=== PATIENT | male | born 1960 | race Two or more races ===

== ENCOUNTER 2016-06-27 12:06 | Inpatient (IN) | payer OTHER ==
[2016-06-27 12:18] VITALS: BMI 28.7
--- NOTE | 2016-06-27 12:42 | PDOC ---
History of Present Illness - General Chief Complaint: Weakness Stated Complaint: FLU LIKE SYMPTOMS Time Seen by Provider: 06/27/16 12:34 History Source: Patient Exam Limitations: No Limitations - History of Present Illness Initial Comments: 06/27/16 12:41 CHIEF COMPLAINT: "Flu" HISTORY OF PRESENT ILLNESS: This is a 55 year old male with a history of ESRD on HD Tue/Tue/Tue, anemia, IDDM, and bilateral plantar wounds for which he is followed at the [facility] who presents complaining of subjective fevers, chills/rigors, bodyaches, and malaise since Tuesday. He has some generalized headache, but denies neck stiffness, visual changes, vomiting, or any other associated symptoms. He has some dry cough. He denies shortness of breath, chest pain, abdominal pain, n/v/d, or any other symptoms. He states that he feels "exactly the same" as when he was admitted in 2016 with influenza. His girlfriend at bedside states that she was able to express pus from his left foot wound yesterday. Vital signs on arrival are notable for rectal temp of 100.9. Industrial Maintenance Technician is Dr. Kaylyn Marks Wound Care is done by Dr. Sadie Araiza Patient does not currently have a PCP (previously followed with Oliva Young at [facility]) REVIEW OF SYSTEMS: GENERAL/CONSTITUTIONAL: Subjective fevers, chills, rigors, malaise, bodyaches. HEAD, EYES, EARS, NOSE AND THROAT: No change in vision. No ear pain or discharge. No sore throat. CARDIOVASCULAR: No chest pain or palpitations. RESPIRATORY: Dry cough. No wheezing or shortness of breath. GASTROINTESTINAL: No nausea, vomiting, diarrhea or constipation. GENITOURINARY: Produces urine. No dysuria or hematuria. MUSCULOSKELETAL: Myalgias. No neck or back pain. SKIN: No rash or easy bruising. Bilateral foot wounds. NEUROLOGIC: Gradual onset, intermittent, generalized headache. No vertigo, loss of consciousness, or loss of sensation. PSYCHIATRIC: No depression or anxiety. ENDOCRINE: No increased thirst. No abnormal weight change. HEMATOLOGIC/LYMPHATIC: History of anemia. No easy bleeding, or history of blood clots. ALLERGIC/IMMUNOLOGIC: No hives or skin allergy. No latex allergy. PHYSICAL EXAM: GENERAL: The patient is awake, alert, and fully oriented, in no acute distress. ENT: Pupils equal, round and reactive to light, extraocular movements intact, sclera anicteric, conjunctiva clear. Neck supple. LUNGS: Clear to auscultation bilaterally. Normal excursion. No respiratory distress or use of accessory muscles. CV: RRR, S1/S2, no MRG. Cap refill < 2 sec. ABDOMEN: Soft, non-distended, non-tender. EXTREMITIES: LUE AV graft. NEUROLOGICAL: Normal speech, normal gait. CN II-XII grossly intact. PSYCH: Normal mood, normal affect. SKIN: Small, shallow plantar ulcerations bilaterally without surrounding erythema, no pus expressed. Past History - Past Medical History Allergies/Adverse Reactions: Allergies Allergy/AdvReac Type Severity Reaction Status Date / Time No Known Drug Allergies Allergy Verified 06/27/16 12:13 Home Medications: Ambulatory Orders Calcium Acetate [Phoslo -] 1 tab PO TID 06/30/15 Mupirocin Ointment [Bactroban 2% Ointment -] 1 applic TP BID #1 applic 12/08/15 Torsemide 20 mg PO BID 12/08/15 Minoxidil 10 mg PO DAILY 02/23/16 Insulin Lispro [Humalog] 100 unit SQ HS 06/27/16 Anemia: No Asthma: No Cancer: No Cardiac Disorders: No CVA: No COPD: No CHF: No Dementia: Yes Diabetes: Yes (IDDM, T, T,S) Dialysis: Yes () GI Disorders: No Disorders: No HTN: Yes Hypercholesterolemia: No Liver Disease: No Seizures: No Thyroid Disease: No - Surgical History Abdominal Surgery: Yes (childhood) Appendectomy: No Cardiac Surgery: No Cholecystectomy: No Lung Surgery: No Neurologic Surgery: No Orthopedic Surgery: (fingers) - Immunization History Td Vaccination: No Immunization Up to Date: Yes - Psycho/Social/Smoking Cessation Hx Anxiety: No Suicidal Ideation: No Smoking Status: No Smoking History: Never smoked Have you smoked in the past 12 months: No Number of Cigarettes Smoked Daily: 0 Cigars Per Day: 0 Information on smoking cessation initiated: No Hx Alcohol Use: No Drug/Substance Use Hx: No Substance Use Type: None Hx Substance Use Treatment: No *Physical Exam - Vital Signs Last Vital Signs Temp Pulse Resp BP Pulse Ox 98.7 F 86 20 148/64 100 06/27/16 12:13 06/27/16 12:13 06/27/16 12:13 06/27/16 12:13 06/27/16 12:13 ED Treatment Course - LABORATORY CBC & Chemistry Diagram: 06/27/16 12:55 06/27/16 12:55 Medical Decision Making - Medical Decision Making 06/27/16 13:42 A/P: 55 year old male with fever. 1. EKG 2. CXR 3. Sepsis labs and davis-culture (left foot wound culture given history provided by girlfriend, although only minimal serious drainage was expressed), influenza swab 4. Tylenol 650mg po for fever 5. NS 250 mL bolus 6. Re-assess 06/27/16 13:55 -WBC 20 -Lactic acid within normal limits at 1.4 06/27/16 15:04 CXR: No infiltrate Wound culture gram stain: mod G+ cocci and G+ rods Will treat for possible wound infection (Zosyn/Vancomycin) given no other clear source and admit for sepsis. *DC/Admit/Observation/Transfer Diagnosis at time of Disposition: Local infection of wound Sepsis Qualifiers: Sepsis type: sepsis due to unspecified organism Qualified Code(s): A41.9 - Sepsis, unspecified organism - Discharge Dispostion Condition at time of disposition: Guarded Admit: Yes
[2016-06-27] MEDS ORDERED: SODIUM CHLORIDE 250 ML IV STA (13:33)
[2016-06-27 13:34] LABS: BASOPHIL 0.4 % (0-2.0); EOSINOPHIL 0.6 % (0-4.5); MCH 28.5 pg (25.7-33.7); MCHC 32.3 g/dl (32.0-35.9); MEAN CELL VOLUME 88.1 fl (80-96); MEAN PLT VOLUME 7.6 fl (7.5-11.1); NEUTROPHILS 78.2 % (42.8-82.8); PLATELET COUNT 211 K/MM3 (134-434); RDW 15.4 % (11.9-15.9)
[2016-06-27] MEDS ORDERED: ACETAMINOPHEN 325 MG TABLET (FP) PO ONE (13:34)
[2016-06-27 13:51] LABS: INR 1.36 (0.82-1.09)
[2016-06-27] MEDS ORDERED: ACETAMINOPHEN 325 MG TABLET (FP) ONE (13:51)
[2016-06-27 13:54] LABS: ACTIVATED PTT 36.4 SECONDS (26.9-34.4)
[2016-06-27 14:04] LABS: BILIRUBIN,TOTAL 0.9 mg/dL (0.2-1.0); TOT PROT 7.4 g/dl (6.4-8.2)
[2016-06-27 14:10] LABS: COCKROFT - GAULT 9.47
[2016-06-27 14:26] LABS: CREATININE 11.3 mg/dL (0.7-1.3)
[2016-06-27] MEDS ORDERED: AMPICILLIN NA/SULBACTAM NA 3 GM in SODIUM CHLORIDE 100 ML IVPB ONE (15:05)
[2016-06-27] MEDS ORDERED: VANCOMYCIN 1,000 MG in DEXTROSE 5%-WATER - 250 ML IVPB ONE (15:05)
[2016-06-27] MEDS ORDERED: PIPERACILLIN/TAZOB 4.5 GM/100 ML PRE-DOCKED IVPB ONE (15:28)
[2016-06-27] MEDS ORDERED: PIPERACILLIN/TAZOB 4.5 GM 100 ML IVPB ONE (15:51)
[2016-06-27] MEDS ORDERED: VANCOMYCIN 1 GRAM (PRE-DOCKED) 250 ML IVPB ONE (15:52)
--- NOTE | 2016-06-27 17:17 | HP ---
CHIEF COMPLAINT: Weakness PCP: Behavioral Health Specialist is Dr. Kaylyn Marks Wound Care is done by Dr. Sadie Araiza Patient does not currently have a PCP (previously followed with Oliva Young at [facility]) HISTORY OF PRESENT ILLNESS: 55 yo M with significant PMHx. of IDDM, ESRD (HD ),HTN and chronic foot ulcers(Wound Center [facility]), presents with 5 day history of flu like symptoms of fevers/chills and generalized weakness. He states he has had bodyaches, nausea with bilous non-bloody vomiting x6. since tuesday (06/22/16). Accompanied by fevers(max 101), non-productive cough and headache, but denies neck stiffness. He also endorsed increased right foot pain that has been going on for the past month. He was admitted one year ago for Flu and states "this is how i felt then ". Denies CP, MICHAEL, ER course was notable for: (1)CBC show WBC - 20 (2)Blood/Urine cultures sent- stat dose of Vanco/Zosyn (3)CXR-negative for acute path., EKG- unchanged from previous. Recent Travel: Denies PAST MEDICAL HISTORY: IDDM, ESRD (HD /),HTN and chronic foot ulcers PAST SURGICAL HISTORY: Left arm fistula for HD Social History: Smoking: never Alcohol:no Drugs: no Family History: Allergies No Known Drug Allergies Allergy (Verified 06/27/16 12:13) HOME MEDICATIONS: Home Medications Medication Instructions Recorded Calcium Acetate [Phoslo -] 1 tab PO TID 06/30/15 Mupirocin Ointment [Bactroban 2% 1 applic TP BID #1 applic 12/08/15 Ointment -] Torsemide 20 mg PO BID 12/08/15 Minoxidil 10 mg PO DAILY 02/23/16 Insulin Lispro [Humalog] 100 unit SQ HS 06/27/16 REVIEW OF SYSTEMS CONSTITUTIONAL: (+)fever, chills, diaphoresis, generalized weakness, malaise, loss of appetite Absent: weight change HEENT: Absent: rhinorrhea, nasal congestion, throat pain, throat swelling, difficulty swallowing, mouth swelling, ear pain, eye pain, visual changes CARDIOVASCULAR: Absent: chest pain, syncope, palpitations, irregular heart rate, lightheadedness , peripheral edema RESPIRATORY: Absent: cough, shortness of breath, dyspnea with exertion, orthopnea, wheezing, stridor, hemoptysis GASTROINTESTINAL:(+) nausea, vomiting Absent: abdominal pain, abdominal distension,, diarrhea, constipation, melena, hematochezia GENITOURINARY: Absent: dysuria, frequency, urgency, hesitancy, hematuria, flank pain, genital pain MUSCULOSKELETAL: (+)Right foot pain Absent: myalgia, arthralgia, joint swelling, back pain, neck pain SKIN: Absent: rash, itching, pallor HEMATOLOGIC/IMMUNOLOGIC: Absent: easy bleeding, easy bruising, lymphadenopathy, frequent infections ENDOCRINE: Absent: unexplained weight gain, unexplained weight loss, heat intolerance, cold intolerance NEUROLOGIC: Absent: headache, focal weakness or paresthesias, dizziness, unsteady gait, seizure, mental status changes, bladder or bowel incontinence PSYCHIATRIC: Absent: anxiety, depression, suicidal or homicidal ideation, hallucinations. PHYSICAL EXAMINATION Vital Signs - 24 hr 06/27/16 16:04 Pulse Rate [ 82 Right] Respiratory 20 Rate Blood Pressure 125/67 [Left Arm] O2 Sat by Pulse 98 Oximetry (%) GENERAL: AAOx3, mild distress HEAD: NC/AT EYES:PERRLA, EOMI, sclera anicteric, conjunctiva clear. No lid lag. EARS, NOSE, THROAT: Ears normal, nares patent, oropharynx clear without exudates. Moist mucous membranes. NECK: Normal range of motion, supple without lymphadenopathy, JVD, or masses. LUNGS: Breath sounds equal, clear to auscultation bilaterally. No wheezes, and no crackles. No accessory muscle use. HEART: Regular rate and rhythm, normal S1 and S2 without murmur, rub or gallop. ABDOMEN: Soft, nontender, not distended, normoactive bowel sounds, no guarding, no rebound, no masses. No hepatomegaly or splenomegaly. MUSCULOSKELETAL: Normal range of motion at all joints. No bony deformities or tenderness. No CVA tenderness. UPPER EXTREMITIES: 2+ pulses, warm, well-perfused. No cyanosis. No clubbing. No peripheral edema. LOWER EXTREMITIES: 2+ pulses, warm, well-perfused. No calf tenderness. No peripheral edema. NEUROLOGICAL: Cranial nerves II-XII intact. Normal speech. Normal gait. PSYCHIATRIC: Cooperative. Good eye contact. Appropriate mood and affect. SKIN: Warm, dry, normal turgor, no rashes or lesions noted, normal capillary refill. ASSESSMENT/PLAN: 55 yo M with significant PMHx. of IDDM, ESRD (HD ),HTN and chronic foot ulcers(Wound Center [facility]), presents with 5 day history of flu like symptoms admitted to inpatient service for sepsis secondary to foot ulcer infection. Problem List - Problem (1) Sepsis Assessment/Plan: * Most likely secondary to foot infection * Blood/Urine/ and wound cultures sent. * Vanco/ Zosyn x1 --> ID consulted. * IVF with NS @ 125ml/hr * tylenol PRN fever * Lactic acid WNL -repeat pending. * repeat CBC and CMP in AM (2) Wound infection Assessment/Plan: * Seen by Dr. Araiza in wound clinic- consulted * Wound care daily * cultures pending. * Vanco/zosyn given in ED. * ESR pending * Bilat. foot xray pending - r/o osteo (3) Diabetes mellitus with nephropathy Assessment/Plan: * Renal/ADA diet * ISS AC * BGM ACHS * Levemir 6 Units HS -held for NPO after midnight (4) ESRD (end stage renal disease) Assessment/Plan: * Consulted nephrology * BUN/Cr at baseline * Renal diet * dialysis on Sat next on Tuesday (HD ) * renal dose meds3 * avoid nephrotoxins. * repeat AM labs. (5) HTN (hypertension) Assessment/Plan: * Minoxidil 10mg PO AM * Hold for SBP <90 * followed by Dr. Dueñas in community (6) DVT prophylaxis Assessment/Plan: * Heparin 5000 units BID Visit type - Emergency Visit Emergency Visit: Yes ED Registration Date: 06/27/16 Care time: The patient presented to the Emergency Department on the above date and was hospitalized for further evaluation of their emergent condition. - New Patient This patient is new to me today: Yes Date on this admission: 06/27/16 - Critical Care Critical Care patient: No
--- NOTE | 2016-06-27 18:33 | PN ---
Teaching Attending Note Name of Resident: Steven Constantino ATTENDING PHYSICIAN STATEMENT I saw and evaluated the patient. I reviewed the resident's note and discussed the case with the resident. I agree with the resident's findings and plan as documented. SUBJECTIVE: 55 year old IDDM M presents with bilateral foot ulcers with worsening pain and fevers/chills for about 3 days. OBJECTIVE: Vital Signs Temperature 99.9 F H 06/27/16 15:39 Pulse Rate 82 06/27/16 16:04 Respiratory Rate 20 06/27/16 16:04 Blood Pressure 125/67 06/27/16 16:04 O2 Sat by Pulse Oximetry (%) 98 06/27/16 16:04 CBCD WBC 20.0 K/mm3 (4.0-10.0) H D 06/27/16 12:55 RBC 3.29 M/mm3 (4.00-5.60) L 06/27/16 12:55 Hgb 9.4 GM/dL (11.7-16.9) L 06/27/16 12:55 Hct 29.0 % (35.4-49) L 06/27/16 12:55 MCV 88.1 fl (80-96) 06/27/16 12:55 MCHC 32.3 g/dl (32.0-35.9) 06/27/16 12:55 RDW 15.4 % (11.9-15.9) 06/27/16 12:55 Plt Count 211 K/MM3 (134-434) D 06/27/16 12:55 MPV 7.6 fl (7.5-11.1) 06/27/16 12:55 CMP Sodium 134 mmol/L (136-145) L 06/27/16 12:55 Potassium 4.6 mmol/L (3.5-5.1) 06/27/16 12:55 Chloride 90 mmol/L (98-107) L 06/27/16 12:55 Carbon Dioxide 26 mmol/L (21-32) 06/27/16 12:55 Anion Gap 18 (8-16) H 06/27/16 12:55 BUN 50 mg/dL (7-18) H D 06/27/16 12:55 Creatinine 11.3 mg/dL (0.7-1.3) H* 06/27/16 12:55 Creat Clearance w eGFR 4.73 (>60) 06/27/16 12:55 Random Glucose 159 mg/dL (74-106) H D 06/27/16 12:55 Calcium 9.0 mg/dL (8.5-10.1) 06/27/16 12:55 Total Bilirubin 0.9 mg/dL (0.2-1.0) D 06/27/16 12:55 AST 27 U/L (15-37) 06/27/16 12:55 ALT 30 U/L (12-78) 06/27/16 12:55 Alkaline Phosphatase 124 U/L (45-117) H 06/27/16 12:55 Total Protein 7.4 g/dl (6.4-8.2) D 06/27/16 12:55 Albumin 3.0 g/dl (3.4-5.0) L 06/27/16 12:55 Current Medications Generic Name Dose Route Start Last Admin Trade Name Freq PRN Reason Stop Dose Admin Calcium Acetate 667 mg 06/27/16 17:30 Phoslo - PO TIDCM [facility] Heparin Sodium (Porcine) 5,000 unit 06/27/16 22:00 Heparin - SQ BID [facility] Minoxidil 10 mg 06/28/16 10:00 Loniten - PO DAILY [facility] Mupirocin 1 applic 06/27/16 22:00 Bactroban 2% Ointment - TP BID MONIK Torsemide 20 mg 06/28/16 06:00 Demadex - PO BIDLASIX [facility] Home Medications Medication Instructions Recorded Calcium Acetate [Phoslo -] 1 tab PO TID 06/30/15 Mupirocin Ointment [Bactroban 2% 1 applic TP BID #1 applic 12/08/15 Ointment -] Torsemide 20 mg PO BID 12/08/15 Minoxidil 10 mg PO DAILY 02/23/16 Insulin Lispro [Humalog] 100 unit SQ HS 06/27/16 L foot: positive for purulence expressed from wound, malodor present ,5th metatarsal head ulcer R foot: sub-4th and 5th metatarsal head ulcer . Moderate tenderness to palpation. ASSESSMENT AND PLAN: Patient is 55 yo M with significant PMHx. of IDDM, ESRD (HD //),HTN with bilateral foot ulcers(Wound Center [facility]), presents with with worsening pain and subjective fevers/chills for about 3 days and 5 day history of flu like symptoms of fevers/chills and generalized weakness. As per patient last year had the same symptoms. # Sepsis due to BL foot infection with abscess L great toe r/o Osteo ; septic w /u ordered s/p Blood/Urine/ wound cultures sent. s/p Vanco/ Zosyn in ED. ID consult Dr.Hariharan campos. IVF with NS @ 125ml/hr, tylenol ,Lactic acid repeat pending. Monitor Cbc # Wound infection of BL foot ; Araiza and Lens Finisher consult Wound care daily ; ESR ordered, Bilat. 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
[2016-06-27] MEDS: CALCIUM ACETATE 667 MG CAPSULE (FP) PO SCH (18:41)
[2016-06-27] MEDS ORDERED: ZOLPIDEM TARTRATE 5 MG TABLET PO ONE ×2 (19:52→22:15)
[2016-06-27 20:39] LABS: BASOPHIL 0.5 % (0-2.0); EOSINOPHIL 0.7 % (0-4.5); MCH 27.9 pg (25.7-33.7); MEAN CELL VOLUME 87.4 fl (80-96); MEAN PLT VOLUME 7.7 fl (7.5-11.1); NEUTROPHILS 77.2 % (42.8-82.8); PLATELET COUNT 221 K/MM3 (134-434); RDW 15.4 % (11.9-15.9); WHITE BLOOD COUNT 17.7 K/mm3 (4.0-10.0)
[2016-06-27 20:53] LABS: INR 1.46 (0.82-1.09); PROTHROMBIN TIME (PATIENT) 16.2 SEC (9.98-11.88)
[2016-06-27 20:56] LABS: ACTIVATED PTT 32.8 SECONDS (26.9-34.4)
[2016-06-27 21:03] LABS: ALBUMIN 2.6 g/dl (3.4-5.0); BILIRUBIN,TOTAL 0.7 mg/dL (0.2-1.0); CALCIUM 8.3 mg/dL (8.5-10.1); TOT PROT 6.7 g/dl (6.4-8.2)
[2016-06-27 21:11] LABS: CREATININE 12.3 mg/dL (0.7-1.3)
[2016-06-27 21:12] LABS: COCKROFT - GAULT 8.7
[2016-06-27] MEDS: MUPIROCIN 2% TOPICAL OINTMENT 22 GM TUBE TP SCH (22:19)
[2016-06-27] MEDS: HEPARIN NA (PORCINE) 5,000 UNITS/ML 1ML VIAL SQ SCH (22:19)
[2016-06-28] MEDS: TORSEMIDE 20 MG TABLET (FP) PO SCH ×2 (06:40→13:06)
[2016-06-28] MEDS: CALCIUM ACETATE 667 MG CAPSULE (FP) PO SCH ×3 (07:55→18:01)
[2016-06-28 08:05] LABS: BASOPHIL 0.4 % (0-2.0); EOSINOPHIL 0.5 % (0-4.5); MCH 28.4 pg (25.7-33.7); MCHC 32.3 g/dl (32.0-35.9); MEAN PLT VOLUME 7.9 fl (7.5-11.1); NEUTROPHILS 77.7 % (42.8-82.8); PLATELET COUNT 215 K/MM3 (134-434); RDW 15.3 % (11.9-15.9); WHITE BLOOD COUNT 17.7 K/mm3 (4.0-10.0)
[2016-06-28 08:44] LABS: CALCIUM 8.5 mg/dL (8.5-10.1)
[2016-06-28 08:54] LABS: COCKROFT - GAULT 7.93; PHOSPHOROUS 6.2 mg/dL (2.5-4.9)
[2016-06-28 09:27] LABS: CREATININE 13.5 mg/dL (0.7-1.3)
[2016-06-28] MEDS ORDERED: PT OWN MED DRAWER 7, Y5N ONE ×2 (09:57→18:30)
[2016-06-28] MEDS: HEPARIN NA (PORCINE) 5,000 UNITS/ML 1ML VIAL SQ SCH ×2 (09:58→22:16)
--- NOTE | 2016-06-28 10:37 | EKG ---
Test Reason : Blood Pressure : / mmHG Vent. Rate : 087 BPM Atrial Rate : 087 BPM P-R Int : 180 ms QRS Dur : 088 ms QT Int : 364 ms P-R-T Axes : 024 023 059 degrees QTc Int : 438 ms SINUS RHYTHM WITH OCCASIONAL PREMATURE VENTRICULAR COMPLEXES NONSPECIFIC T WAVE ABNORMALITY ABNORMAL ECG WHEN COMPARED WITH ECG OF 10-APR-2015 14:54, PREMATURE VENTRICULAR COMPLEXES ARE NOW PRESENT Confirmed by SRINIVASAN VILALVICENCIO, ASHLY ([id number]) on 06/28/2016 10:36:36 AM Referred By: Confirmed By:ASHLY MATTSON MD
[2016-06-28] MEDS: MINOXIDIL 10 MG TABLET PO SCH (10:39)
[2016-06-28] MEDS: MUPIROCIN 2% TOPICAL OINTMENT 22 GM TUBE TP SCH ×2 (10:40→22:22)
--- NOTE | 2016-06-28 11:32 | CONSULT ---
Consult - text type - Consultation Consultation Note: Podiatry Consultation: 55 year old IDDM M presents for admission for bilateral foot ulcers with worsening pain and subjective fevers/chills for about 3 days. Patient has been treated by Dr. Pastrana in the wound care center, has been scheduled for surgery in the past, however his blood pressure has not been controlled in the past. Presented with low grade temp to 100.9 F while admitted. States that his persistent foot pain to the right foot has worsened over the past week. Currently is afebrile. Patient states that he works out quite a bit and wears sneakers with appropriate support. PMHx: IDDM, HTN, ESRD on HD (MWF) Meds: in chart ALL: NKMA ABDIAS: Pedal pulses 1/4, TG WNL, CFT brisk to all toes. L foot: plantar hallux IPJ wound with hyperkeratotic borders, upon debridement significant purulence expressed from wound, malodor present, wound does not probe to bone, there is no soft tissue crepitus, no ascending cellulitis. Moderate tenderness to palpation. There is a sub-5th metatarsal head ulcer with hyperkeratotic borders, no probing to bone, mostly granular base, no purulence, no fluctuance, no ascending cellulitis, no signs of acute infection. R foot: sub-4th and 5th metatarsal head ulcer with fibrotic base, hyperkeratotic borders, probes deep, no purulence, no fluctuance, no ascending cellulitis, no signs of active infection. Moderate tenderness to palpation. Bilateral foot XR: not completed WBC: 17.7 Blood Cx: pending Imp: 55 year old IDDM with bilateral foot DFUs and L great toe abscess 1. Incision and drainage of abscess L great toe. No anesthesia needed due to patient's neuropathic state. Approximately 5 cc's of purulence expressed from great toe. Culture obtained. 2. Needs ID consultation. 3. Vascular consultation. 4. MRI bilateral feet ordered. Has probing wound R foot and may need bone biopsy depending on results. 5. IV abx. Should respond now that I&D performed. 6. Will follow. Thank you for the courtesy of this consultation. Mel Almanzar DPM
--- NOTE | 2016-06-28 12:00 | PN ---
Progress Note (short form) - Note Progress Note: Podiatry Brief Note: Pt has probing ulcer R foot. Plan for metatarsal head resection R foot tomorrow. NPO at midnight. Vascular to clear patient for surgery. Mel Almanzar DPM
--- NOTE | 2016-06-28 14:07 | CONSULT ---
Consultation: REQUESTING PROVIDER: Jenna Longoria CONSULT REQUEST: We have been asked to medically evaluate this patient for sepsis. HISTORY OF PRESENT ILLNESS: 55 year old male presents to the emergency room with complaints of flu like symptoms including fever, (100.9), body aches, malaise, for the past five day. Patient also complains of bilateral foot pain for the past month. Patient has ESRD, on HD TTS, IDMM, who has been treated at wound care previously for Bilateral foot ulcers, Dr. Chisholm. In the Er patient found to be febrile, with leukocytosis (20), bilateral foot ulcers, left foot draining purulent discharge. REVIEW OF SYSTEMS: CONSTITUTIONAL: Positive:fever, chills, diaphoresis, generalized weakness, malaise, Absent: loss of appetite, weight change HEENT: Absent: rhinorrhea, nasal congestion, throat pain, throat swelling, difficulty swallowing, mouth swelling, ear pain, eye pain, visual changes CARDIOVASCULAR: Absent: chest pain, syncope, palpitations, irregular heart rate, lightheadedness , peripheral edema RESPIRATORY: Absent: cough, shortness of breath, dyspnea with exertion, orthopnea, wheezing, stridor, hemoptysis GASTROINTESTINAL: Absent: abdominal pain, abdominal distension, nausea, vomiting, diarrhea, constipation, melena, hematochezia GENITOURINARY: Absent: dysuria, frequency, urgency, hesitancy, hematuria, flank pain, genital pain MUSCULOSKELETAL: Positive: bilateral foot pain Absent: myalgia, arthralgia, joint swelling, back pain, neck pain SKIN: Absent: rash, itching, pallor HEMATOLOGIC/IMMUNOLOGIC: Absent: easy bleeding, easy bruising, lymphadenopathy, frequent infections ENDOCRINE: Absent: unexplained weight gain, unexplained weight loss, heat intolerance, cold intolerance NEUROLOGIC: Absent: headache, focal weakness or paresthesias, dizziness, unsteady gait, seizure, mental status changes, bladder or bowel incontinence PSYCHIATRIC: Absent: anxiety, depression, suicidal or homicidal ideation, hallucinations. PHYSICAL EXAMINATION Vital Signs - 24 hr 06/27/16 06/28/16 16:04 06:00 Temperature 98.5 F Pulse Rate 87 Pulse Rate [ 82 Right] Respiratory 20 20 Rate Blood Pressure 144/71 Blood Pressure 125/67 [Left Arm] O2 Sat by Pulse 98 Oximetry (%) GENERAL: Awake, alert, and fully oriented, in no acute distress. HEAD: Normal with no signs of trauma. EYES: Pupils equal, round and reactive to light, extraocular movements intact, sclera anicteric, conjunctiva clear. No lid lag. EARS, NOSE, THROAT: Ears normal, nares patent, oropharynx clear without exudates. Moist mucous membranes. NECK: Normal range of motion, supple without lymphadenopathy, JVD, or masses. LUNGS: Breath sounds equal, clear to auscultation bilaterally. No wheezes, and no crackles. No accessory muscle use. HEART: Regular rate and rhythm, normal S1 and S2 without murmur, rub or gallop. ABDOMEN: Soft, nontender, not distended, normoactive bowel sounds, no guarding, no rebound, no masses. No hepatomegaly or splenomegaly. MUSCULOSKELETAL: Normal range of motion at all joints. No bony deformities or tenderness. No CVA tenderness. UPPER EXTREMITIES: 2+ pulses, warm, well-perfused. No cyanosis. No clubbing. Cap refill <2 seconds. No peripheral edema. LOWER EXTREMITIES: 2+ pulses, warm, well-perfused. No calf tenderness. trace right foot edema, bilateral plantar foot ulcers. Right foot ulcer 2x2cm, with skin breakdown over callous, with white edges ; left foot open plantar ulcer, draining some blood s/p I&D NEUROLOGICAL: Cranial nerves II-XII intact. Normal speech. Normal gait. PSYCHIATRIC: Cooperative. Good eye contact. Appropriate mood and affect. SKIN: Warm, dry, normal turgor, no rashes or lesions noted. CBC, BMP 06/28/16 06:30 06/28/16 06:30 Active Medications Generic Name Dose Route Start Last Admin Trade Name Yangq PRN Reason Stop Dose Admin Calcium Acetate 667 mg 06/27/16 17:30 06/28/16 13:06 Phoslo - PO 667 mg TIDCM [facility]IK Administration Heparin Sodium (Porcine) 5,000 unit 06/27/16 22:00 06/28/16 09:58 Heparin - SQ Not Given BID [facility] Minoxidil 10 mg 06/28/16 10:00 06/28/16 10:39 Loniten - PO 10 mg DAILY [facility]IK Administration Mupirocin 1 applic 06/27/16 22:00 06/28/16 10:40 Bactroban 2% Ointment - TP 1 applic BID [facility] Administration Torsemide 20 mg 06/28/16 06:00 06/28/16 13:06 Demadex - PO 20 mg BIDLASIX [facility] Administration ASSESSMENT/PLAN: This is a 55 year old male with ESRD on HD (TTS), IDDM, hx of diabetic foot ulcers, present to the emergency room septic, secondary to bilateral foot ulcers. #sepsis secondary to bilateral foot ulcers: -sepsis protocol -foot xray showing soft tissue infection 4th and 5th digits of the right toe metatarsal / r/o osteomylitis ; MRI pending -s/p I&D by podiatry; -going to OR in the AM -cleared by vascular; good circulation -wound cultures +presumptive MRSA -continue vancomycin and zosyn -dose vancomycin according to trough and pending HD -IV zosyn 2.25mg Q8H -f/u CRP and ESR -contact precautions #ESRD: -HD; TTS -dose vanco accordingly Dispo: We will continue to follow the patient. Thank you for this consultative opportunity. Visit type - Emergency Visit Emergency Visit: Yes ED Registration Date: 06/27/16 Care time: The patient presented to the Emergency Department on the above date and was hospitalized for further evaluation of their emergent condition. - New Patient This patient is new to me today: Yes Date on this admission: 06/28/16 - Critical Care Critical Care patient: No
--- NOTE | 2016-06-28 14:10 | CONSULT ---
Consult Consult Specialty:: Nephrology ( Kendrick/ Brian) Reason for Consultation:: Foot infection and Osteomyelitis in a patient with ESRD. - History of Present Illness Chief Complaint: The patient is well known to me , with h/o ESRD, on HD at Dialysis unit TTS, h/o very refractory Hypertension, until recently when he was started on Minoxidil. BP extremely well controlled now. He has h/o Insulin Dependent Diabetes mellitus, Hypertension, Chronic plantar ulcers. The patient had fever, abd pain and vomiting at the time of admission. - History Source History Provided By: Patient, Medical Record Limitations to Obtaining History: No Limitations - Past Medical History Cardio/Vascular: Yes: HTN Gastrointestinal: Yes: Other (vomiting) Renal/: Yes: Renal Failure, Hemodialysis (on maintenance HD 2/2 hypertensive nephrosclerosis since 2013; on transplant list @ [place]) Heme/Onc: Yes: Anemia Infectious Disease: Yes: Other (infected foot ulcers) Musculoskeletal: Yes: Other (remote hx of L foot fracture/sports trauma ) Endocrine: Yes: Diabetes Mellitus - Past Surgical History Past Surgical History: Yes: None - Alcohol/Substance Use Hx Alcohol Use: No History of Substance Use: reports: None - Smoking History Smoking history: Never smoked Have you smoked in the past 12 months: No Aproximately how many cigarettes per day: 0 - Social History Usual Living Arrangement: With Significant Other ADL: Independent Occupation: not working History of Recent Travel: Yes ([facility]) Home Medications - Allergies Allergies/Adverse Reactions: Allergies Allergy/AdvReac Type Severity Reaction Status Date / Time No Known Drug Allergies Allergy Verified 06/27/16 12:13 - Home Medications Home Medications: Ambulatory Orders Calcium Acetate [Phoslo -] 1 tab PO TID 06/30/15 Mupirocin Ointment [Bactroban 2% Ointment -] 1 applic TP BID #1 applic 12/08/15 Torsemide 20 mg PO BID 12/08/15 Minoxidil 10 mg PO DAILY 02/23/16 Insulin Lispro [Humalog] 100 unit SQ HS 06/27/16 Family Disease History - Family Disease History Family Disease History: Diabetes: Father (HTN), Mother (HTN), Heart Disease: Father, Mother Review of Systems - Review of Systems Constitutional: reports: Chills, Fever, Loss of Appetite, Malaise Respiratory: reports: No Symptoms, Cough Gastrointestinal: reports: Abdominal Pain, Nausea, Vomiting Integumentary: reports: Blister, Wound (feet) Neurological: reports: Numbness (feet) Physical Exam Vital Signs: Vital Signs Temperature 98.5 F 06/28/16 06:00 Pulse Rate 87 06/28/16 06:00 Respiratory Rate 20 06/28/16 06:00 Blood Pressure 144/71 06/28/16 06:00 O2 Sat by Pulse Oximetry (%) 98 06/27/16 16:04 Constitutional: Yes: Calm HENT: Yes: Atraumatic Neck: Yes: Trachea Midline Cardiovascular: Yes: Regular Rate and Rhythm, S1, S2 Respiratory: Yes: CTA Bilaterally Gastrointestinal: Yes: Normal Bowel Sounds Renal/: Yes: Oliguria Extremities: Yes: Other (bilateral foot ulcers) Edema: Yes Edema: LLE: Trace, RLE: Trace Neurological: Yes: Alert, Oriented, Loss of Sensation (feet) Psychiatric: Yes: Alert, Oriented Labs: CBC, BMP 06/28/16 06:30 06/28/16 06:30 Problem List - Problems (1) Sepsis Code(s): A41.9 - SEPSIS, UNSPECIFIED ORGANISM Qualifiers: Sepsis type: sepsis due to unspecified organism Qualified Code(s): A41.9 - Sepsis, unspecified organism (2) Wound infection Code(s): T14.8 - OTHER INJURY OF UNSPECIFIED BODY REGION L08.9 - LOCAL INFECTION OF THE SKIN AND SUBCUTANEOUS TISSUE, UNSP (3) Anemia in ESRD (end-stage renal disease) Code(s): N18.6 - END STAGE RENAL DISEASE D63.1 - ANEMIA IN CHRONIC KIDNEY DISEASE (4) Chronic diabetic ulcer of left foot determined by examination Code(s): E11.621 - TYPE 2 DIABETES MELLITUS WITH FOOT ULCER L97.529 - NON-PRESSURE CHRONIC ULCER OTH PRT LEFT FOOT W UNSP SEVERITY (5) Chronic ulcer of left foot Code(s): L97.529 - NON-PRESSURE CHRONIC ULCER OTH PRT LEFT FOOT W UNSP SEVERITY Qualifiers: Non-pressure ulcer stage: unspecified non-pressure ulcer stage Qualified Code(s): L97.529 - Non-pressure chronic ulcer of other part of left foot with unspecified severity (6) ESRD needing dialysis Code(s): N18.6 - END STAGE RENAL DISEASE (7) HTN (hypertension) Code(s): I10 - ESSENTIAL (PRIMARY) HYPERTENSION Qualifiers: Hypertension type: essential hypertension Qualified Code(s): I10 - Essential (primary) hypertension (8) Type 2 diabetes mellitus with foot ulcer Code(s): E11.621 - TYPE 2 DIABETES MELLITUS WITH FOOT ULCER L97.509 - NON-PRESSURE CHRONIC ULCER OTH PRT UNSP FOOT W UNSP SEVERITY Qualifiers: (9) Wound, open, foot Code(s): S91.309A - UNSPECIFIED OPEN WOUND, UNSPECIFIED FOOT, INITIAL ENCOUNTER Assessment/Plan 55 y/o male admitted with fever and constitutional symptoms suggestive of sepsis , possibly related to the bilateral plantal wounds with purulent drainage. The Patient has long standing DM with peripheral neuropathy. Can't r/o Charcot' s foot, given the extreme lack of sensation of the feet. The patient has ESRD, on HD TIW...MWF at [facility] Dialysis unit. Anemia, due to ESRD. Will give Epogen during HD tomorrow. Plan: IV Abx Surgical interventyion. HD in AM. Will give Vancomycin at the end of Dialysis. Thanks again. Sarah Marks MD
[2016-06-28] MEDS ORDERED: VANCOMYCIN (PRE-DOCKED) 100 ML IVPB ONE (14:43)
--- NOTE | 2016-06-28 14:43 | PN ---
Teaching Attending Note Name of Resident: Steven Constantino ATTENDING PHYSICIAN STATEMENT I saw and evaluated the patient. I reviewed the resident's note and discussed the case with the resident. I agree with the resident's findings and plan as documented. SUBJECTIVE: Patient is c/o having pain s/p debridment OBJECTIVE: Vital Signs Temperature 99.7 F H 06/28/16 09:00 Pulse Rate 84 06/28/16 09:00 Respiratory Rate 18 06/28/16 09:00 Blood Pressure 168/70 06/28/16 09:00 O2 Sat by Pulse Oximetry (%) 98 06/28/16 09:00 CBCD WBC 17.7 K/mm3 (4.0-10.0) H 06/28/16 06:30 RBC 2.99 M/mm3 (4.00-5.60) L 06/28/16 06:30 Hgb 8.5 GM/dL (11.7-16.9) L 06/28/16 06:30 Hct 26.3 % (35.4-49) L 06/28/16 06:30 MCV 88.0 fl (80-96) 06/28/16 06:30 MCHC 32.3 g/dl (32.0-35.9) 06/28/16 06:30 RDW 15.3 % (11.9-15.9) 06/28/16 06:30 Plt Count 215 K/MM3 (134-434) 06/28/16 06:30 MPV 7.9 fl (7.5-11.1) 06/28/16 06:30 CMP Sodium 132 mmol/L (136-145) L 06/28/16 06:30 Potassium 5.0 mmol/L (3.5-5.1) 06/28/16 06:30 Chloride 93 mmol/L (98-107) L 06/28/16 06:30 Carbon Dioxide 25 mmol/L (21-32) 06/28/16 06:30 Anion Gap 14 (8-16) 06/28/16 06:30 BUN 63 mg/dL (7-18) H 06/28/16 06:30 Creatinine 13.5 mg/dL (0.7-1.3) H* 06/28/16 06:30 Creat Clearance w eGFR 4.29 (>60) 06/27/16 20:25 Random Glucose 192 mg/dL (74-106) H 06/28/16 06:30 Calcium 8.5 mg/dL (8.5-10.1) 06/28/16 06:30 Total Bilirubin 0.7 mg/dL (0.2-1.0) D 06/27/16 20:25 AST 31 U/L (15-37) 06/27/16 20:25 ALT 31 U/L (12-78) 06/27/16 20:25 Alkaline Phosphatase 113 U/L (45-117) 06/27/16 20:25 Total Protein 6.7 g/dl (6.4-8.2) 06/27/16 20:25 Albumin 2.6 g/dl (3.4-5.0) L 06/27/16 20:25 Current Medications Generic Name Dose Route Start Last Admin Trade Name Freq PRN Reason Stop Dose Admin Calcium Acetate 667 mg 06/27/16 17:30 06/28/16 13:06 Phoslo - PO 667 mg TIDCM MONIK Administration Epoetin Alexander 20,000 unit 06/29/16 14:28 Procrit - IVPUSH 06/29/16 14:29 ONCE ONE Heparin Sodium (Porcine) 5,000 unit 06/27/16 22:00 06/28/16 09:58 Heparin - SQ Not Given BID [facility] Vancomycin HCl 1,000 mg/ 250 mls @ 250 mls/hr 06/29/16 14:29 Dextrose IVPB 06/29/16 15:28 ONCE ONE Protocol Minoxidil 10 mg 06/28/16 10:00 06/28/16 10:39 Loniten - PO 10 mg DAILY MONIK Administration Mupirocin 1 applic 06/27/16 22:00 06/28/16 10:40 Bactroban 2% Ointment - TP 1 applic BID MONIK Administration Torsemide 20 mg 06/28/16 06:00 06/28/16 13:06 Demadex - PO 20 mg BIDLASIX MONIK Administration Home Medications Medication Instructions Recorded Calcium Acetate [Phoslo -] 1 tab PO TID 06/30/15 Mupirocin Ointment [Bactroban 2% 1 applic TP BID #1 applic 12/08/15 Ointment -] Torsemide 20 mg PO BID 12/08/15 Minoxidil 10 mg PO DAILY 02/23/16 Insulin Lispro [Humalog] 100 unit SQ HS 06/27/16 Microbiology 06/27/16 13:34 Wound-Other Gram Stain - Final 06/27/16 13:34 Wound-Other Wound Culture - Final S Aureus Diphtheroid/Corynebacterium 06/27/16 13:25 Blood - Peripheral Venous Blood Culture - Preliminary NO GROWTH OBTAINED AFTER 48 HOURS, INCUBATION TO CONTINUE FOR 3 DAYS. 06/27/16 12:55 Blood - Peripheral Venous Blood Culture - Preliminary NO GROWTH OBTAINED AFTER 48 HOURS, INCUBATION TO CONTINUE FOR 3 DAYS. 06/28/16 11:30 Toe - Left Hallux Gram Stain - Final 06/28/16 11:30 Toe - Left Hallux Wound Culture - Preliminary Presumptive Mrsa (Pbp2a Pos) 06/27/16 12:55 Nasopharyngeal Swab Respiratory Virus Panel - Preliminary 06/27/16 12:55 Nasopharyngeal Swab Influenza Types A,B Antigen (JUDE) - Final 06/27/16 12:55 Nasopharyngeal Swab - Final MRI: Extensive cellulitis of foot with osteomyelitis of the head of 4th metatarsal ASSESSMENT AND PLAN: Patient is 55 yo M with significant PMHx. of IDDM, ESRD (HD ),HTN with bilateral foot ulcers(Wound Center [facility]), presents with with worsening pain and subjective fevers/chills for about 3 days and 5 day history of flu like symptoms of fevers/chills and generalized weakness. As per patient last year had the same symptoms. 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
--- NOTE | 2016-06-28 14:46 | PN ---
Teaching Attending Note Name of Resident: Bernice Bhagat ATTENDING PHYSICIAN STATEMENT I saw and evaluated the patient. I reviewed the resident's note and discussed the case with the resident. I agree with the resident's findings and plan as documented. SUBJECTIVE: OBJECTIVE: ASSESSMENT AND PLAN: Infected diabetic foot ulcer Probable osteomyelitis Possible sepsis secondary to skin source ESRD Pending c/s empiric zosyn/ vancomycin, adjusted for ESRD For metatarsal head resection
--- NOTE | 2016-06-28 15:19 | PN ---
Physical Exam: SUBJECTIVE: Patient seen and examined at bedside. No overnight events. No new complaints. States he feels somewhat better than yesterday. Denies CP,MICHAEL, palpitations, abd. pain, N/V. OBJECTIVE: Vital Signs Period Temp Pulse Resp BP Sys/Salas Pulse Ox Last 24 Hr 98.5 F-99.7 F 82-87 18-20 125-168/67-71 98-98 GENERAL: AAOx3, mild distress HEAD: NC/AT EYES:PERRLA, EOMI, sclera anicteric, conjunctiva clear. No lid lag. EARS, NOSE, THROAT: Ears normal, nares patent, oropharynx clear without exudates. Moist mucous membranes. NECK: Normal range of motion, supple without lymphadenopathy, JVD, or masses. LUNGS: Breath sounds equal, clear to auscultation bilaterally. No wheezes, and no crackles. No accessory muscle use. HEART: Regular rate and rhythm, normal S1 and S2 without murmur, rub or gallop. ABDOMEN: Soft, nontender, not distended, normoactive bowel sounds, no guarding, no rebound, no masses. No hepatomegaly or splenomegaly. MUSCULOSKELETAL: Normal range of motion at all joints. No bony deformities or tenderness. No CVA tenderness. LOWER EXTREMITIES: 2+ pulses, warm, well-perfused. mild bilat.calf tenderness. No peripheral edema.plantar .Left foot ulcer on hallux IPJ .Right [id number] and 5th metatarsal head ulcer. NEUROLOGICAL: Cranial nerves II-XII intact. Normal speech. gait not observed. Laboratory Results - last 24 hr 06/27/16 06/27/16 06/27/16 20:25 20:25 20:25 WBC 17.7 H RBC 3.01 L Hgb 8.4 L D Hct 26.3 L MCV 87.4 MCHC 32.0 RDW 15.4 Plt Count 221 MPV 7.7 Neutrophils % 77.2 Lymphocytes % 7.5 L Monocytes % 14.1 H Eosinophils % 0.7 Basophils % 0.5 ESR INR 1.46 H PTT (Actin FS) 32.8 Sodium 134 L Potassium 4.7 Chloride 93 L Carbon Dioxide 28 Anion Gap 13 BUN 53 H Creatinine 12.3 H* Creat Clearance w eGFR 4.29 Random Glucose 221 H D Calcium 8.3 L Phosphorus Total Bilirubin 0.7 D AST 31 ALT 31 Alkaline Phosphatase 113 Total Protein 6.7 Albumin 2.6 L 06/27/16 06/28/16 06/28/16 20:25 06:30 06:30 WBC 17.7 H RBC 2.99 L Hgb 8.5 L Hct 26.3 L MCV 88.0 MCHC 32.3 RDW 15.3 Plt Count 215 MPV 7.9 Neutrophils % 77.7 Lymphocytes % 7.9 L Monocytes % 13.5 H Eosinophils % 0.5 Basophils % 0.4 ESR 89 H INR PTT (Actin FS) Sodium 132 L Potassium 5.0 Chloride 93 L Carbon Dioxide 25 Anion Gap 14 BUN 63 H Creatinine 13.5 H* Creat Clearance w eGFR Random Glucose 192 H Calcium 8.5 Phosphorus 6.2 H D Total Bilirubin AST ALT Alkaline Phosphatase Total Protein Albumin Active Medications Generic Name Dose Route Start Last Admin Trade Name Freq PRN Reason Stop Dose Admin Calcium Acetate 667 mg 06/27/16 17:30 06/28/16 13:06 Phoslo - PO 667 mg TIDCM MONIK Administration Epoetin Alexander 20,000 unit 06/29/16 14:28 Procrit - IVPUSH 06/29/16 14:29 ONCE ONE Heparin Sodium (Porcine) 5,000 unit 06/27/16 22:00 06/28/16 09:58 Heparin - SQ Not Given BID COUNTS INCLUDE 234 BEDS AT THE [facility] Vancomycin HCl 100 mls @ 100 mls/hr 06/28/16 14:43 Vancomycin (Pre-Docked) IVPB 06/28/16 15:42 ONCE ONE Piperacillin Sod/Tazobactam Sod 50 mls @ 100 mls/hr 06/28/16 14:45 Zosyn 2.25gm Ivpb (Pre-Docked) IVPB Q8H-IV COUNTS INCLUDE 234 BEDS AT THE [facility] Protocol Minoxidil 10 mg 06/28/16 10:00 06/28/16 10:39 Loniten - PO 10 mg DAILY MONIK Administration Mupirocin 1 applic 06/27/16 22:00 06/28/16 10:40 Bactroban 2% Ointment - TP 1 applic BID MONIK Administration Torsemide 20 mg 06/28/16 06:00 06/28/16 13:06 Demadex - PO 20 mg BIDLASIX MONIK Administration IMAGING: * XRAY bilat. feet- Rule out myelitis. 3 views of the right foot and 3 views left were provided. Soft tissue air lucency overlying the right fourth and fifth MTP joint regions is consistent with soft tissue infection. This somewhat impedes evaluation of the underlying bony structures however there are suspected mild lucencies in the right fourth and fifth metatarsal heads raising possibility of osteomyelitis. There are vascular calcifications bilaterally consistent with atherosclerotic disease. No fracture or dislocation is seen in either foot. There is osteopenia. IMPRESSION: Soft tissue air consistent with soft tissue infection in the right foot. Mild lucencies in the fourth and fifth metatarsal heads suspected on the right raising possibility of osteomyelitis. MRI would be more definitive. Reported By: Tyson Cordon MD 06/28/16 1303 Microbiology 06/27/16 13:34 Wound-Other Gram Stain - Final 06/27/16 13:34 Wound-Other Wound Culture - Preliminary Presumptive Mrsa (Pbp2a Pos) Diphtheroid/Corynebacterium ASSESSMENT/PLAN: 55 yo M with significant PMHx. of IDDM, ESRD (HD //),HTN and chronic foot ulcers(Wound Center [facility]), presents with 5 day history of flu like symptoms admitted to inpatient service for sepsis secondary to foot ulcer infection. Problem List - Problems (1) Sepsis Assessment/Plan: * Most likely secondary to foot infection * Preliminary Micro results as above. * Vanco continued as per ID * IVF with NS @ 125ml/hr * tylenol PRN fever * Lactic acid WNL * repeat CBC and CMP in AM (2) Wound infection Assessment/Plan: * Dr. Almanzar consult appreciated. * XRAY suspicious for Osteo- MRI ordered * Will be taken to surgery for metatarsal head resection R foot tomorrow. * NPO after midnight. (3) Diabetes mellitus with nephropathy Assessment/Plan: * Renal/ADA diet * ISS AC * BGM ACHS * Levemir 6 Units HS -held for NPO after midnight (4) ESRD (end stage renal disease) Assessment/Plan: * Dr. Espinosa consult appreciated. * Will be dialyzed prior to OR tomorrow. * Vanco to be given after HD * Renal diet * avoid nephrotoxins. * repeat AM labs. (5) Hyponatremia Assessment/Plan: * Continue IVF * repeat labs tomorrow * will be dialyzed in AM (6) HTN (hypertension) Assessment/Plan: * Minoxidil 10mg PO AM * Hold for SBP <90 * followed by Dr. Dueñas in community (7) DVT prophylaxis Assessment/Plan: * Heparin 5000 units BID Visit type - Emergency Visit Emergency Visit: Yes ED Registration Date: 06/27/16 Care time: The patient presented to the Emergency Department on the above date and was hospitalized for further evaluation of their emergent condition. - New Patient This patient is new to me today: No - Critical Care Critical Care patient: No
[2016-06-28] MEDS: PIPERACILLIN/TAZOB 2.25 GM 50 ML IVPB SCH ×2 (15:44→17:42)
[2016-06-28] MEDS ORDERED: oxyCODONE HCL 5 MG TABLET PO PRN (17:41)
[2016-06-28] MEDS ORDERED: ACETAMINOPHEN 325 MG TABLET (FP) PO PRN (20:33)
[2016-06-28] MEDS: INSULIN SLIDING SCALE (NOVOLOG) 1 VIAL SQ SCH (22:40)
[2016-06-29] MEDS: PIPERACILLIN/TAZOB 2.25 GM 50 ML IVPB SCH ×3 (02:13→18:23)
[2016-06-29] MEDS: TORSEMIDE 20 MG TABLET (FP) PO SCH (06:19)
[2016-06-29] MEDS: INSULIN SLIDING SCALE (NOVOLOG) 1 VIAL SQ SCH ×3 (06:25→18:06)
[2016-06-29 08:43] LABS: BASOPHIL 0.7 % (0-2.0); EOSINOPHIL 0.6 % (0-4.5); MCH 28.4 pg (25.7-33.7); MCHC 32.5 g/dl (32.0-35.9); MEAN CELL VOLUME 87.6 fl (80-96); NEUTROPHILS 78.6 % (42.8-82.8); PLATELET COUNT 216 K/MM3 (134-434); WHITE BLOOD COUNT 17.9 K/mm3 (4.0-10.0)
[2016-06-29] MEDS ORDERED: EPOETIN ALFA 20,000 UNIT/1 ML VIAL IVPUSH ONE (09:00)
[2016-06-29 09:05] LABS: ALBUMIN 2.4 g/dl (3.4-5.0); CALCIUM 8.3 mg/dL (8.5-10.1)
[2016-06-29 09:17] LABS: BILIRUBIN,TOTAL 0.7 mg/dL (0.2-1.0); COCKROFT - GAULT 7.95; PHOSPHOROUS 5.2 mg/dL (2.5-4.9); TOT PROT 6.5 g/dl (6.4-8.2)
[2016-06-29 09:24] LABS: CREATININE 13.4 mg/dL (0.7-1.3)
--- NOTE | 2016-06-29 09:53 | PN ---
Progress Note (short form) - Note Progress Note: Renal Follow up for ESRD on HD Pt seen and examined during dialysis BP 140/58, goal UF is 3L pt without any acute complaints denies sob, chest pain, abd pain Hgb 7.8, pt without symptoms of anemia. Vital Signs Temperature 99.3 F 06/29/16 06:49 Pulse Rate 72 06/29/16 08:20 Respiratory Rate 18 06/29/16 08:20 Blood Pressure 138/70 06/29/16 08:20 O2 Sat by Pulse Oximetry (%) 98 06/28/16 21:00 Intake & Output 06/26/16 06/27/16 06/28/16 06/29/16 23:59 23:59 23:59 23:59 Intake Total 300 50 Balance 300 50 Weight 200 lb 199 lb Gen: NAD, awake and alert HEENT: No JVD CVS: RRR, No M/R Lungs: CTA Abd: soft NT/ND Ext: No edema, clubbing or edema CBC, BMP 06/29/16 06:50 06/29/16 06:50 Laboratory Tests 06/29/16 06:50 Calcium 8.3 L Phosphorus 5.2 H Albumin 2.4 L Current Medications Acetaminophen (Tylenol -) 650 mg PO Q4H PRN PRN Reason: FEVER OR PAIN Last Admin: 06/28/16 21:00 Dose: 650 mg Calcium Acetate (Phoslo -) 667 mg PO TIDCM [facility] Last Admin: 06/28/16 18:01 Dose: 667 mg Heparin Sodium (Porcine) (Heparin -) 5,000 unit SQ BID [facility] Last Admin: 06/28/16 22:16 Dose: 5,000 unit Piperacillin Sod/Tazobactam Sod (Zosyn 2.25gm Ivpb (Pre-Docked)) 50 mls @ 100 mls/hr IVPB Q8H-IV MONIK PRN Reason: Protocol Last Admin: 06/29/16 02:13 Dose: 100 mls/hr Insulin Aspart (Novolog Vial Sliding Scale -) 1 vial SQ ACHS MONIK PRN Reason: Protocol Last Admin: 06/29/16 06:25 Dose: 4 unit Minoxidil (Loniten -) 10 mg PO DAILY [facility] Last Admin: 06/28/16 10:39 Dose: 10 mg Mupirocin (Bactroban 2% Ointment -) 1 applic TP BID [facility] Last Admin: 06/28/16 22:22 Dose: 1 applic Oxycodone HCl (Roxicodone -) 5 mg PO Q8H PRN PRN Reason: PAIN Last Admin: 06/28/16 22:18 Dose: 5 mg Torsemide (Demadex -) 20 mg PO BIDLASIX [facility] Last Admin: 06/29/16 06:19 Dose: Not Given A/P 55 year old Male with PMhx of ESRD on HD, Hypertension, DM who presented with Fever and LE wound #ESRD on HD Tolerating HD well goal UF is 3L Dose all meds for intermittent HD Will maintain on TTS schedule as inpatient #Acute on Chronic Anemia likely Anemia of CKD no symptoms of Anemia at this time Will given high Dose Epogen with Hd Trend CBC Type and Screen obtained will defer Transfusion for now #LE Wound/Infection Surgical Management as per Podiatry ABx as per ID f/u Cultures #Hypertension Hx of refractory Hypertension Continue Minoxidil, Torsemide Cm Torres DO
--- NOTE | 2016-06-29 09:58 | PN ---
Physical Exam: SUBJECTIVE: Patient seen and examined, temp 101 overnight, afebrile this am. White count still 17. currently getting dialysis. States that he is feeling better since getting antibiotics. Going to OR this afternoon for right foot 4th metatarsal head removal and further left foot ulcer I&d. OBJECTIVE: Vital Signs Period Temp Pulse Resp BP Sys/Salas Pulse Ox Last 24 Hr 98.4 F-102.3 F 70-82 18-20 123-170/56-100 98 GENERAL: The patient is awake, alert, and fully oriented, in no acute distress, getting dialysis HEAD: Normal with no signs of trauma. EYES: PERRL, extraocular movements intact, sclera anicteric, conjunctiva clear. No ptosis. NECK: Trachea midline, full range of motion, supple. LUNGS: Breath sounds equal, clear to auscultation bilaterally, no wheezes, no crackles, no accessory muscle use. HEART: Regular rate and rhythm, S1, S2 without murmur, rub or gallop. ABDOMEN: Soft, nontender, nondistended, normoactive bowel sounds, no guarding, no rebound, no hepatosplenomegaly, no masses. EXTREMITIES: 2+ pulses, warm, well-perfused, no edema. Right foot plantar ulcer , 2x3cm with friable edges, probe to bone; left foot plantar ulcer wrapped no drain or pus NEUROLOGICAL: Cranial nerves II through XII grossly intact. Normal speech, gait not observed. PSYCH: Normal mood, normal affect. SKIN: Warm, dry, normal turgor, no rashes or lesions noted CBC, BMP 06/29/16 06:50 06/29/16 06:50 Active Medications Generic Name Dose Route Start Last Admin Trade Name Freq PRN Reason Stop Dose Admin Acetaminophen 650 mg 06/28/16 20:33 06/28/16 21:00 Tylenol - PO 650 mg Q4H PRN Administration FEVER OR PAIN Calcium Acetate 667 mg 06/27/16 17:30 06/28/16 18:01 Phoslo - PO 667 mg TIDCM MONIK Administration Heparin Sodium (Porcine) 5,000 unit 06/27/16 22:00 06/28/16 22:16 Heparin - SQ 5,000 unit BID MONIK Administration Piperacillin Sod/Tazobactam Sod 50 mls @ 100 mls/hr 06/28/16 14:45 06/29/16 02: 13 Zosyn 2.25gm Ivpb (Pre-Docked) IVPB 100 mls/hr Q8H-IV MONIK Administration Protocol Insulin Aspart 1 vial 06/28/16 22:07 06/29/16 06:25 Novolog Vial Sliding Scale - SQ 4 unit ACHS MONIK Administration Protocol Minoxidil 10 mg 06/28/16 10:00 06/28/16 10:39 Loniten - PO 10 mg DAILY MONIK Administration Mupirocin 1 applic 06/27/16 22:00 06/28/16 22:22 Bactroban 2% Ointment - TP 1 applic BID MONIK Administration Oxycodone HCl 5 mg 06/28/16 17:41 06/28/16 22:18 Roxicodone - PO 5 mg Q8H PRN Administration PAIN Torsemide 20 mg 06/28/16 06:00 06/29/16 06:19 Demadex - PO Not Given BIDLASIX [facility] Microbiology 06/28/16 11:30 Toe - Left Hallux Gram Stain - Final 06/27/16 13:34 Wound-Other Gram Stain - Final 06/27/16 13:34 Wound-Other Wound Culture - Preliminary Mr S Aureus Diphtheroid/Corynebacterium 06/27/16 13:25 Blood - Peripheral Venous Blood Culture - Preliminary NO GROWTH OBTAINED AFTER 24 HOURS, INCUBATION TO CONTINUE FOR 4 DAYS. 06/27/16 12:55 Blood - Peripheral Venous Blood Culture - Preliminary NO GROWTH OBTAINED AFTER 24 HOURS, INCUBATION TO CONTINUE FOR 4 DAYS. 06/27/16 12:55 Nasopharyngeal Swab Respiratory Virus Panel - Preliminary 06/27/16 12:55 Nasopharyngeal Swab Influenza Types A,B Antigen (JUDE) - Final 06/27/16 12:55 Nasopharyngeal Swab - Final ASSESSMENT/PLAN: This is a 55 year old male with ESRD on HD (TTS), IDDM, hx of diabetic foot ulcers, present to the emergency room septic, secondary to bilateral foot ulcers. Most likely osteomyelitis. #sepsis secondary to bilateral foot ulcers most likely osteomyelitis: -sepsis protocol -foot xray showing soft tissue infection 4th and 5th digits of the right toe metatarsal / r/o osteomylitis ; MRI pending -s/p I&D by podiatry; -going to OR today for right foot 4th metatarsal head removal and left foot ulcer I&D -wound cultures +presumptive MRSA -continue vancomycin and zosyn -vanco trough 20 today; will hold today dose; recheck trough tomorrow -cont IV zosyn 2.25mg Q8H -f/u CRP and ESR -contact precautions #ESRD: -HD; TTS -dose vanco accordingly Dispo: We will continue to follow the patient. Thank you for this consultative opportunity. Problem List - Problems (1) Sepsis Code(s): A41.9 - SEPSIS, UNSPECIFIED ORGANISM Qualifiers: Sepsis type: sepsis due to unspecified organism Qualified Code(s): A41.9 - Sepsis, unspecified organism (2) Wound infection Code(s): T14.8 - OTHER INJURY OF UNSPECIFIED BODY REGION L08.9 - LOCAL INFECTION OF THE SKIN AND SUBCUTANEOUS TISSUE, UNSP (3) Anemia in ESRD (end-stage renal disease) Code(s): N18.6 - END STAGE RENAL DISEASE D63.1 - ANEMIA IN CHRONIC KIDNEY DISEASE (4) Chronic diabetic ulcer of left foot determined by examination Code(s): E11.621 - TYPE 2 DIABETES MELLITUS WITH FOOT ULCER L97.529 - NON-PRESSURE CHRONIC ULCER OTH PRT LEFT FOOT W UNSP SEVERITY (5) Controlled type 2 diabetes mellitus with foot ulcer Code(s): E11.621 - TYPE 2 DIABETES MELLITUS WITH FOOT ULCER L97.509 - NON-PRESSURE CHRONIC ULCER OTH PRT UNSP FOOT W UNSP SEVERITY (6) Ulcer of right foot Code(s): L97.519 - NON-PRS CHRONIC ULCER OTH PRT RIGHT FOOT W UNSP SEVERITY Visit type - Emergency Visit Emergency Visit: Yes ED Registration Date: 06/27/16 Care time: The patient presented to the Emergency Department on the above date and was hospitalized for further evaluation of their emergent condition. - New Patient This patient is new to me today: No - Critical Care Critical Care patient: No
--- NOTE | 2016-06-29 09:59 | PN ---
Progress Note (short form) - Note Progress Note: Podiatry Brief Note: Risks, benefits, alternatives to surgery discussed at length with patient. Patient amenable to surgery. Plan for R metatarsal head resection with bone biopsy, bilateral debridement of ulcer. Mel Almanzar DPM
--- NOTE | 2016-06-29 10:58 | PN ---
Teaching Attending Note Name of Resident: Bernice Bhagat ATTENDING PHYSICIAN STATEMENT I saw and evaluated the patient. I reviewed the resident's note and discussed the case with the resident. I agree with the resident's findings and plan as documented. SUBJECTIVE: Seen on HD Feeling better No c/o foot pain Fever overnight noted No c/o rigors OBJECTIVE: Cor S1S2 Lungs clear Abdomen soft R foot with dry plantar ulcers x 2 No expressible pus ASSESSMENT AND PLAN: Infected foot ulcer/ osteomyelitis ESRD For debridement in OR today Await cultures Vancomycin level theraputic Repeat level am Continue zosyn
[2016-06-29] MEDS: MINOXIDIL 10 MG TABLET PO SCH (11:27)
[2016-06-29] MEDS: CALCIUM ACETATE 667 MG CAPSULE (FP) PO SCH ×2 (11:28→18:02)
[2016-06-29] MEDS: MUPIROCIN 2% TOPICAL OINTMENT 22 GM TUBE TP SCH ×2 (11:33→22:27)
[2016-06-29] MEDS: HEPARIN NA (PORCINE) 5,000 UNITS/ML 1ML VIAL SQ SCH ×2 (11:33→22:09)
[2016-06-29] MEDS ORDERED: LIDOCAINE HCL/PF 2% SDV 5ML VIAL ONE (12:11)
[2016-06-29] MEDS ORDERED: MIDAZOLAM HCL 2 MG/2 ML SINGLE DOSE VIAL ONE (12:11)
[2016-06-29] MEDS ORDERED: PROPOFOL 20 ML ONE ×2 (12:11→13:25)
[2016-06-29] MEDS ORDERED: LIDOCAINE HCL 2% (20ML MULTI-DOSE VIAL) NR ONE (12:25)
[2016-06-29] MEDS ORDERED: LIDOCAINE HCL 2% (50ML VIAL) NR ONE (13:01)
[2016-06-29] MEDS ORDERED: BACITRACIN 50,000 UNITS VIAL TP ONE (13:26)
--- NOTE | 2016-06-29 14:14 | OP ---
Operative Note - Note: Operative Date: 06/29/16 Pre-Operative Diagnosis: R foot DM foot infection with osteomyelitis. L foot DM foot ulcers Operation: L foot excisional debridement of ulcer x 2. R foot debridement and lavage. R 4th metatarsal resection with bone biopsy Findings: Extensive liquefactive tissue with thrombosed vessels, purulence from 4th interspace; severe diabetic infection Surgeon: Vazquez Almanzar Anesthesia: Local, MAC Specimens Removed: Metatarsal bone, right foot Estimated Blood Loss (mls): 20 Instrument used (Debridements only): #15 blade scalpel and scissors
[2016-06-29] MEDS ORDERED: oxyCODONE HCL 5 MG TABLET PO PRN ×2 (14:16→14:20)
[2016-06-29] MEDS ORDERED: VANCOMYCIN 1,000 MG in DEXTROSE 5%-WATER - 250 ML IVPB ONE (14:29)
--- NOTE | 2016-06-29 14:56 | OP ---
DATE OF OPERATION: 06/29/2016 PREOPERATIVE DIAGNOSIS: 1. Right foot diabetic foot infection with osteomyelitis. 2. Left foot diabetic ulcer with infection. POSTOPERATIVE DIAGNOSIS: 1. Right foot diabetic foot infection with osteomyelitis. 2. Left foot diabetic ulcer with infection. PROCEDURE: 1. Right foot debridement and lavage. 2. Right 4th metatarsal head resection with bone biopsy. 3. Left foot debridement and lavage. SURGEON: Vazquez Almanzar DPM BATCH RECORDS CLERK: Dr. Park, PGY-2, [facility]. ANESTHESIA: Local with IV sedation. ESTIMATED BLOOD LOSS: Minimal. HEMOSTASIS: None. PATHOLOGY: Metatarsal bone, right foot. COMPLICATIONS: None. DESCRIPTION OF PROCEDURE: The patient was brought to the operating room and placed on the operating table in the supine position. I elected to not use hemostasis during the course of this procedure. Following the induction of IV sedation, local anesthesia was achieved utilizing 20 mL of 2% lidocaine plain. The bilateral feet were then scrubbed, prepped, and draped in the usual aseptic fashion. Attention was directed first to the left foot where a plantar IPJ hallux ulcer sub 5th metatarsal diabetic ulcer was visualized and appreciated. I performed an excisional debridement of the left sub 5th metatarsal head ulcer to the level of subcutaneous tissue utilizing a sterile 15 blade. All fibrotic tissue was removed until healthy granular tissue persisted. Next, I performed an excisional debridement of the plantar hallux ulcer to the level of subcutaneous tissue utilizing a 15 blade scalpel. Fibrotic tissue was excised until healthy granular tissue persisted. Next, I directed my attention to the right foot, where a sub 4th metatarsal ulcer, which was fibrotic and malodorous, was visualized and appreciated. I began by performing an excisional debridement of the right foot ulcer to the level of the subcutaneous tissue utilizing a sterile 15 blade. Of note, the ulcer probed from plantar to dorsal to the 4th metatarsal head. Next, I performed a 4-cm linear longitudinal incision overlying the 4th metatarsophalangeal joint. Immediately upon incision, there was purulent material expressed from the wound. This was cultured for culture and sensitivity. The underlying tissue dorsally was liquefactive with thrombosed vessels indicative of a severe soft tissue infection. An excisional debridement of this tissue was performed including subcutaneous tissue, tendons, muscles, all the way down to periosteum. The 4th metatarsal head was resected utilizing the sagittal saw. This was soft and friable, indicative of an acute infection. The portion of the metatarsal head was suctioned for bone culture and the remainder sent for bone pathology. The surgical site was then copiously irrigated utilizing sterile saline mixed with Bacitracin 3 L in a pulse lavage fashion. The proximal and distal aspects of the wound were coapted and maintained utilizing 3-0 nylon in a [id number] fashion. Central aspect of the wound was packed open utilizing 0.25-inch Iodoform packing. Following the conclusion of the procedure, bilaterally feet were covered with Xeroform in and a sterile compressive dressing was applied to both feet consisting of sterile gauze, Chris, Kerlix, and Irvin wrap. Patient tolerated the procedure and anesthesia well without any complications. He was transferred from the operating room to the recovery unit with vital signs stable and neurovasculature intact to both feet. KARI [id number] cc: [facility]
[2016-06-29] MEDS: ACETAMINOPHEN 325 MG TABLET (FP) PO PRN (15:13)
--- NOTE | 2016-06-29 15:40 | PN ---
Physical Exam: SUBJECTIVE: Patient seen and examined at bedside. No overnight events .No new complaints. S/p debridement of bilateral foot ulcers. Tolerated procedure well. Pain well controlled. Denies CP,MICHAEL,SOB, palpitations, abd.pain, N/V. OBJECTIVE: Vital Signs Period Temp Pulse Resp BP Sys/Salas Pulse Ox Last 24 Hr 98.4 F-102.3 F 70-94 16-20 100-172/48-100 94-100 GENERAL: AAOx3, mild distress HEAD: NC/AT EYES:PERRLA, EOMI, sclera anicteric, conjunctiva clear. No lid lag. EARS, NOSE, THROAT: Ears normal, nares patent, oropharynx clear without exudates. Moist mucous membranes. NECK: Normal range of motion, supple without lymphadenopathy, JVD, or masses. LUNGS:CTAB, No wheezes, and no crackles. No accessory muscle use. HEART:RRR, normal S1 and S2 without murmur, rub or gallop. ABDOMEN: Soft, NT/ND, BS(+) no guarding, no rebound, no masses. No hepatomegaly or splenomegaly. LOWER EXTREMITIES: 2+ pulses, warm, well-perfused. mild bilat.calf tenderness. No peripheral edema. Plantar Left foot ulcer on hallux IPJ .Right [id number] and 5th metatarsal head ulcer. NEUROLOGICAL: Cranial nerves II-XII intact. Normal speech. gait not observe Laboratory Results - last 24 hr 06/28/16 06/29/16 06/29/16 22:11 06:13 06:50 WBC RBC Hgb Hct MCV MCHC RDW Plt Count MPV Neutrophils % Lymphocytes % Monocytes % Eosinophils % Basophils % Sodium Potassium Chloride Carbon Dioxide Anion Gap BUN Creatinine Creat Clearance w eGFR POC Glucometer 199 214 Random Glucose Calcium Phosphorus Total Bilirubin AST ALT Alkaline Phosphatase Total Protein Albumin Random Vancomycin 20.103 Hep A IgM Ab Confirm Hepatitis A Ab Total Hep Bs Antigen Hep Bs Ag Confirmation Hep Bs Antibody Hep B Core Total Ab Blood Type Antibody Screen 06/29/16 06/29/16 06/29/16 06:50 06:50 06:50 WBC 17.9 H RBC 2.76 L Hgb 7.8 L Hct 24.1 L MCV 87.6 MCHC 32.5 RDW 15.0 Plt Count 216 MPV 8.0 Neutrophils % 78.6 Lymphocytes % 7.0 L Monocytes % 13.1 H Eosinophils % 0.6 Basophils % 0.7 Sodium 134 L Potassium 4.4 Chloride 95 L Carbon Dioxide 24 Anion Gap 15 BUN 68 H Creatinine 13.4 H* Creat Clearance w eGFR 3.88 POC Glucometer Random Glucose 198 H Calcium 8.3 L Phosphorus 5.2 H Total Bilirubin 0.7 AST 28 ALT 29 Alkaline Phosphatase 112 Total Protein 6.5 Albumin 2.4 L Random Vancomycin Hep A IgM Ab Confirm Cancelled Hepatitis A Ab Total Cancelled Hep Bs Antigen Cancelled Hep Bs Ag Confirmation Cancelled Hep Bs Antibody Cancelled Hep B Core Total Ab Cancelled Blood Type Antibody Screen 06/29/16 06/29/16 09:15 11:23 WBC RBC Hgb Hct MCV MCHC RDW Plt Count MPV Neutrophils % Lymphocytes % Monocytes % Eosinophils % Basophils % Sodium Potassium Chloride Carbon Dioxide Anion Gap BUN Creatinine Creat Clearance w eGFR POC Glucometer 149 Random Glucose Calcium Phosphorus Total Bilirubin AST ALT Alkaline Phosphatase Total Protein Albumin Random Vancomycin Hep A IgM Ab Confirm Hepatitis A Ab Total Hep Bs Antigen Hep Bs Ag Confirmation Hep Bs Antibody Hep B Core Total Ab Blood Type O POSITIVE Antibody Screen Negative Active Medications Generic Name Dose Route Start Last Admin Trade Name Freq PRN Reason Stop Dose Admin Acetaminophen 650 mg 06/29/16 14:20 06/29/16 15:13 Tylenol - PO 650 mg Q4H PRN Administration FEVER OR PAIN Calcium Acetate 667 mg 06/29/16 17:30 Phoslo - PO TIDCM [facility] Heparin Sodium (Porcine) 5,000 unit 06/29/16 22:00 Heparin - SQ BID [facility] Piperacillin Sod/Tazobactam Sod 50 mls @ 100 mls/hr 06/29/16 18:00 Zosyn 2.25gm Ivpb (Pre-Docked) IVPB Q8H-IV [facility] Protocol Insulin Aspart 1 vial 06/29/16 16:30 Novolog Vial Sliding Scale - SQ ACHS [facility] Protocol Minoxidil 10 mg 06/30/16 10:00 Loniten - PO DAILY [facility] Mupirocin 1 applic 06/29/16 22:00 Bactroban 2% Ointment - TP BID MONIK Oxycodone HCl 5 mg 06/29/16 14:16 06/29/16 15:14 Roxicodone - PO 5 mg Q4H PRN Administration PAIN LEVEL 1-5 Oxycodone HCl 5 mg 06/29/16 14:20 Roxicodone - PO Q8H PRN PAIN Torsemide 20 mg 06/30/16 06:00 Demadex - PO BIDLASIX MONIK IMAGING: * MRI/LOWER EXTREMITY MRI W/O CONTR MRI of the right foot. Clinical information : Cellulitis. Rule out osteomyelitis. Sagittal coronal and axial T1 and T2- weighted images of the right foot were obtained. There is extensive soft tissue swelling of the foot and is related to cellulitis. No soft tissue abscess is identified. There is edema of the bone marrow of the head of the fourth metatarsal suspicious for osteomyelitis. There are no other bony lesions. There is no disruption of the flexor or extensor tendons. Impression: Extensive cellulitis of the foot with osteomyelitis of the head of the fourth metatarsal. There is no soft tissue abscess. Reported By: Sunil Garza MD 06/28/16 0339 ASSESSMENT/PLAN: Problem List - Problems (1) Sepsis Assessment/Plan: * Most likely secondary to foot infection-0steo confirmed by MRI * will trend ESR * Preliminary Micro results as above. * Vanco/Zosyn for presumptive MRSA from Intraoperative specimen. * IVF with NS @ 125ml/hr * oxycodone prn for pain (2) Wound infection Assessment/Plan: * Dr. Almanzar consult appreciated. * MRI shows osteomyelitis. * Continue Vanco/Zosyn * S/P L foot excisional debridement of ulcer x 2. R foot debridement and lavage. R 4th metatarsal resection with bone biopsy * Extensive liquefactive tissue with thrombosed vessels, purulence from 4th interspace; severe diabetic infection (3) Diabetes mellitus with nephropathy Assessment/Plan: * Renal/ADA diet * ISS AC * BGM ACHS * Levemir 6 Units HS (4) ESRD (end stage renal disease) Assessment/Plan: * Dr. Espinosa consult appreciated. * Dialyzed today prior to OR * Renal diet * avoid nephrotoxins. * repeat AM labs. (5) Hyponatremia Assessment/Plan: * Continue IVF * repeat labs tomorrow (6) HTN (hypertension) Assessment/Plan: * Minoxidil 10mg PO AM * Hold for SBP <90 * followed by Dr. Dueñas in community (7) DVT prophylaxis Assessment/Plan: * Heparin 5000 units BID Visit type - Emergency Visit Emergency Visit: Yes ED Registration Date: 06/27/16 Care time: The patient presented to the Emergency Department on the above date and was hospitalized for further evaluation of their emergent condition. - New Patient This patient is new to me today: No - Critical Care Critical Care patient: No - Discharge Referral Referred to [facility] No
[2016-06-29] MEDS ORDERED: INSULIN SLIDING SCALE (NOVOLOG) 1 VIAL SQ SCH (16:30)
[2016-06-29] MEDS ORDERED: INSULIN (NOVOLOG) ASPART 100 UNITS/ML 10ML VIAL ONE (16:45)
--- NOTE | 2016-06-29 16:52 | PN ---
Teaching Attending Note Name of Resident: Steven Constantino ATTENDING PHYSICIAN STATEMENT I saw and evaluated the patient. I reviewed the resident's note and discussed the case with the resident. I agree with the resident's findings and plan as documented. SUBJECTIVE: Patient is feeling better, having low grade fever. OBJECTIVE: Vital Signs Temperature 100.4 F H 06/29/16 14:45 Pulse Rate 78 06/29/16 14:45 Respiratory Rate 16 06/29/16 14:45 Blood Pressure 173/54 06/29/16 14:45 O2 Sat by Pulse Oximetry (%) 94 L 06/29/16 14:35 CBCD WBC 17.9 K/mm3 (4.0-10.0) H 06/29/16 06:50 RBC 2.76 M/mm3 (4.00-5.60) L 06/29/16 06:50 Hgb 7.8 GM/dL (11.7-16.9) L 06/29/16 06:50 Hct 24.1 % (35.4-49) L 06/29/16 06:50 MCV 87.6 fl (80-96) 06/29/16 06:50 MCHC 32.5 g/dl (32.0-35.9) 06/29/16 06:50 RDW 15.0 % (11.9-15.9) 06/29/16 06:50 Plt Count 216 K/MM3 (134-434) 06/29/16 06:50 MPV 8.0 fl (7.5-11.1) 06/29/16 06:50 CMP Sodium 134 mmol/L (136-145) L 06/29/16 06:50 Potassium 4.4 mmol/L (3.5-5.1) 06/29/16 06:50 Chloride 95 mmol/L (98-107) L 06/29/16 06:50 Carbon Dioxide 24 mmol/L (21-32) 06/29/16 06:50 Anion Gap 15 (8-16) 06/29/16 06:50 BUN 68 mg/dL (7-18) H 06/29/16 06:50 Creatinine 13.4 mg/dL (0.7-1.3) H* 06/29/16 06:50 Creat Clearance w eGFR 3.88 (>60) 06/29/16 06:50 Random Glucose 198 mg/dL (74-106) H 06/29/16 06:50 Calcium 8.3 mg/dL (8.5-10.1) L 06/29/16 06:50 Total Bilirubin 0.7 mg/dL (0.2-1.0) 06/29/16 06:50 AST 28 U/L (15-37) 06/29/16 06:50 ALT 29 U/L (12-78) 06/29/16 06:50 Alkaline Phosphatase 112 U/L (45-117) 06/29/16 06:50 Total Protein 6.5 g/dl (6.4-8.2) 06/29/16 06:50 Albumin 2.4 g/dl (3.4-5.0) L 06/29/16 06:50 Current Medications Generic Name Dose Route Start Last Admin Trade Name Freq PRN Reason Stop Dose Admin Acetaminophen 650 mg 06/29/16 14:20 06/29/16 15:13 Tylenol - PO 650 mg Q4H PRN Administration FEVER OR PAIN Calcium Acetate 667 mg 06/29/16 17:30 Phoslo - PO TIDCM [facility] Heparin Sodium (Porcine) 5,000 unit 06/29/16 22:00 Heparin - SQ BID [facility] Piperacillin Sod/Tazobactam Sod 50 mls @ 100 mls/hr 06/29/16 18:00 Zosyn 2.25gm Ivpb (Pre-Docked) IVPB Q8H-IV [facility] Protocol Insulin Aspart 1 vial 06/29/16 16:30 Novolog Vial Sliding Scale - SQ BIDAC [facility] Protocol Insulin Detemir 6 units 06/29/16 22:00 Levemir Vial SQ HS [facility] Minoxidil 10 mg 06/30/16 10:00 Loniten - PO DAILY [facility] Mupirocin 1 applic 06/29/16 22:00 Bactroban 2% Ointment - TP BID [facility] Oxycodone HCl 5 mg 06/29/16 14:16 06/29/16 15:14 Roxicodone - PO 5 mg Q4H PRN Administration PAIN LEVEL 1-5 Oxycodone HCl 5 mg 06/29/16 14:20 Roxicodone - PO Q8H PRN PAIN Torsemide 20 mg 06/30/16 06:00 Demadex - PO BIDLASIX [facility] Home Medications Medication Instructions Recorded Calcium Acetate [Phoslo -] 1 tab PO TID 06/30/15 Mupirocin Ointment [Bactroban 2% 1 applic TP BID #1 applic 12/08/15 Ointment -] Torsemide 20 mg PO BID 12/08/15 Minoxidil 10 mg PO DAILY 02/23/16 Insulin Lispro [Humalog] 100 unit SQ HS 06/27/16 Microbiology 06/27/16 13:34 Wound-Other Gram Stain - Final 06/27/16 13:34 Wound-Other Wound Culture - Final Mr Younger Aureus Diphtheroid/Corynebacterium 06/27/16 13:25 Blood - Peripheral Venous Blood Culture - Preliminary NO GROWTH OBTAINED AFTER 48 HOURS, INCUBATION TO CONTINUE FOR 3 DAYS. 06/27/16 12:55 Blood - Peripheral Venous Blood Culture - Preliminary NO GROWTH OBTAINED AFTER 48 HOURS, INCUBATION TO CONTINUE FOR 3 DAYS. 06/28/16 11:30 Toe - Left Hallux Gram Stain - Final 06/28/16 11:30 Toe - Left Hallux Wound Culture - Preliminary Presumptive Mrsa (Pbp2a Pos) 06/27/16 12:55 Nasopharyngeal Swab Respiratory Virus Panel - Preliminary 06/27/16 12:55 Nasopharyngeal Swab Influenza Types A,B Antigen (JUDE) - Final 06/27/16 12:55 Nasopharyngeal Swab - Final MRI: Extensive cellulitis of foot with osteomyelitis of the head of 4th metatarsal ASSESSMENT AND PLAN: Patient is 55 yo M with significant PMHx. of IDDM, ESRD (HD /),HTN with bilateral foot ulcers(Wound [facility]), presents with with worsening pain and subjective fevers/chills for about 3 days and 5 day history of flu like symptoms of fevers/chills and generalized weakness. As per patient last year had the same symptoms. # Sepsis due to BL foot infection with abscess L great toe s/p I & D growing MRSA s/p Vanco , on Hold since level is 20, on Zosyn discussed with ID will discontinue in am once final culture is reported ,ID on the case, congressional assistant and vascular on the case. # Wound infection of BL foot ;continue IV antibiotic . MRI positive for osteomyelitis of the head 4th metatarsal # Diabetes mellitus with nephropathy with ESRD on HD (HD //): Renal/ADA diet ; sliding scale with coverage ;Levemir 6 Units HS #ESRD (end stage renal disease) nephrology consult ; Renal diet # HTN (hypertension): Minoxidil 10mg PO AM Dr. Dueñas his marketing communication manager if needed DVT prophylaxis: Heparin 5000 units BID
[2016-06-29] MEDS ORDERED: PT OWN MED DRAWER 7, Y5N ONE (17:56)
[2016-06-29] MEDS: INSULIN DETEMIR 100 UNITS/ML MDV SQ SCH (22:09)
[2016-06-30] MEDS: PIPERACILLIN/TAZOB 2.25 GM 50 ML IVPB SCH ×3 (01:19→17:45)
[2016-06-30] MEDS: INSULIN SLIDING SCALE (NOVOLOG) 1 VIAL SQ SCH ×2 (06:02→16:45)
[2016-06-30] MEDS: TORSEMIDE 20 MG TABLET (FP) PO SCH ×2 (06:02→14:34)
[2016-06-30 08:17] LABS: BASOPHIL 0.4 % (0-2.0); EOSINOPHIL 0.3 % (0-4.5); MCHC 31.9 g/dl (32.0-35.9); MEAN CELL VOLUME 87.9 fl (80-96); MEAN PLT VOLUME 7.7 fl (7.5-11.1); NEUTROPHILS 72.5 % (42.8-82.8); PLATELET COUNT 220 K/MM3 (134-434); RDW 15.3 % (11.9-15.9); WHITE BLOOD COUNT 16.8 K/mm3 (4.0-10.0)
[2016-06-30] MEDS: ACETAMINOPHEN 325 MG TABLET (FP) PO PRN (08:22)
[2016-06-30] MEDS: CALCIUM ACETATE 667 MG CAPSULE (FP) PO SCH ×3 (08:22→17:45)
[2016-06-30 08:51] LABS: ALBUMIN 2.3 g/dl (3.4-5.0); BILIRUBIN,TOTAL 0.6 mg/dL (0.2-1.0); CALCIUM 8.6 mg/dL (8.5-10.1); TOT PROT 6.5 g/dl (6.4-8.2)
[2016-06-30 08:52] LABS: CALCIUM 8.7 mg/dL (8.5-10.1); PHOSPHOROUS 5.8 mg/dL (2.5-4.9)
[2016-06-30 08:56] LABS: COCKROFT - GAULT 9.49
[2016-06-30 08:59] LABS: COCKROFT - GAULT 9.41
[2016-06-30 09:06] LABS: CREATININE 11.1 mg/dL (0.7-1.3)
[2016-06-30 09:15] LABS: URINE APPEARANCE TURBID; URINE BILIRUBIN NEGATIVE (NEGATIVE); URINE COLOR AMBER; URINE GLUCOSE (UA) 2+ (NEGATIVE); URINE KETONE NEGATIVE (NEGATIVE); URINE NITRITE NEGATIVE (NEGATIVE); URINE UROBILINOGEN NEGATIVE E.U./dl (0.2-1.0)
[2016-06-30] MEDS ORDERED: PT OWN MED DRAWER 7, Y5N ONE (09:29)
[2016-06-30] MEDS: HEPARIN NA (PORCINE) 5,000 UNITS/ML 1ML VIAL SQ SCH ×2 (09:34→22:01)
[2016-06-30] MEDS: MINOXIDIL 10 MG TABLET PO SCH (09:34)
[2016-06-30] MEDS: MUPIROCIN 2% TOPICAL OINTMENT 22 GM TUBE TP SCH ×2 (09:37→22:02)
[2016-06-30 09:49] LABS: URINE BLOOD 2+ (NEGATIVE); URINE LEUK ESTERASE 2+ (NEGATIVE); URINE PROTEIN 2+ (NEGATIVE)
[2016-06-30 09:53] LABS: URINE RBC 7 /hpf (0-3); URINE WBC 49 /hpf (3-5)
--- NOTE | 2016-06-30 11:10 | PN ---
Progress Note (short form) - Note Progress Note: Renal Follow up for ESRD on HD Pt seen and examined at the bedside no acute complaints s/p OR for debridement and bone biopsy yesterday. Vital Signs Temperature 100.1 F H 06/30/16 07:49 Pulse Rate 80 06/30/16 07:49 Respiratory Rate 20 06/30/16 07:49 Blood Pressure 139/64 06/30/16 07:49 O2 Sat by Pulse Oximetry (%) 94 L 06/29/16 21:00 Intake & Output 06/27/16 06/28/16 06/29/16 06/30/16 23:59 23:59 23:59 23:59 Intake Total 300 510 560 Output Total 20 Balance 300 490 560 Weight 200 lb 199 lb 195 lb 2 oz Gen: NAD, awake and alert HEENT: No JVD CVS: RRR, No M/R Lungs: CTA Abd: soft NT/ND Ext: No edema, clubbing or edema CBC, BMP 06/30/16 06:50 06/30/16 06:50 Laboratory Tests 06/30/16 06:50 Calcium 8.6 Current Medications Acetaminophen (Tylenol -) 650 mg PO Q4H PRN PRN Reason: FEVER OR PAIN Last Admin: 06/30/16 08:22 Dose: 650 mg Calcium Acetate (Phoslo -) 667 mg PO TIDCM [facility] Last Admin: 06/30/16 08:22 Dose: 667 mg Heparin Sodium (Porcine) (Heparin -) 5,000 unit SQ BID [facility] Last Admin: 06/30/16 09:34 Dose: 5,000 unit Piperacillin Sod/Tazobactam Sod (Zosyn 2.25gm Ivpb (Pre-Docked)) 50 mls @ 100 mls/hr IVPB Q8H-IV MONIK PRN Reason: Protocol Last Admin: 06/30/16 09:34 Dose: 100 mls/hr Insulin Aspart (Novolog Vial Sliding Scale -) 1 vial SQ BIDAC [facility] PRN Reason: Protocol Last Admin: 06/30/16 06:02 Dose: 2 units Insulin Detemir (Levemir Vial) 6 units SQ HS [facility] Last Admin: 06/29/16 22:09 Dose: 6 units Minoxidil (Loniten -) 10 mg PO DAILY [facility] Last Admin: 06/30/16 09:34 Dose: 10 mg Mupirocin (Bactroban 2% Ointment -) 1 applic TP BID [facility] Last Admin: 06/30/16 09:37 Dose: Not Given Oxycodone HCl (Roxicodone -) 5 mg PO Q4H PRN PRN Reason: PAIN LEVEL 1-5 Last Admin: 06/29/16 15:14 Dose: 5 mg Oxycodone HCl (Roxicodone -) 5 mg PO Q8H PRN PRN Reason: PAIN Torsemide (Demadex -) 20 mg PO BIDLASIX [facility] Last Admin: 06/30/16 06:02 Dose: 20 mg A/P 55 year old Male with PMhx of ESRD on HD, Hypertension, DM who presented with Fever and LE wound #ESRD on HD s/p dialysis yesterday no acute indication for dialysis today #Acute on Chronic Anemia Trend CBC high dose epogen with HD #LE Wound/Infection MRSA in wound cultures continue Abx Id follow up will redose vanco with HD tomorrow #Hypertension Hx of refractory Hypertension Continue Minoxidil, Torsemide Cm Torres DO
[2016-06-30] MEDS ORDERED: VANCOMYCIN 1 GRAM (PRE-DOCKED) 250 ML IVPB ONE (11:27)
--- NOTE | 2016-06-30 11:35 | PN ---
Physical Exam: SUBJECTIVE: Patient seen and examined, POD #1 metatarsal head removal right big toe, and I&D left foot; low garde fever this am, 100.1, white count still 6. OBJECTIVE: Vital Signs Period Temp Pulse Resp BP Sys/Salas Pulse Ox Last 24 Hr 98.1 F-101.7 F 74-86 16-20 128-173/54-70 90-100 GENERAL: The patient is awake, alert, and fully oriented, in no acute distress. HEAD: Normal with no signs of trauma. LUNGS: Breath sounds equal, clear to auscultation bilaterally, no wheezes, no crackles, no accessory muscle use. HEART: Regular rate and rhythm, S1, S2 without murmur, rub or gallop. ABDOMEN: Soft, nontender, nondistended, normoactive bowel sounds, no guarding, no rebound, no hepatosplenomegaly, no masses. EXTREMITIES: 2+ pulses, warm, well-perfused, no edema. Right foot dressing with small amount of blood on gauze, no pus swelling. Left foor no drainage or pus. NEUROLOGICAL: Cranial nerves II through XII grossly intact. Normal speech, gait not observed. PSYCH: Normal mood, normal affect. SKIN: Warm, dry, normal turgor, no rashes or lesions noted Laboratory Results - last 24 hr 06/29/16 06/29/16 06/29/16 06:50 11:23 16:42 WBC RBC Hgb Hct MCV MCHC RDW Plt Count MPV Neutrophils % Lymphocytes % Monocytes % Eosinophils % Basophils % ESR Sodium Potassium Chloride Carbon Dioxide Anion Gap BUN Creatinine Creat Clearance w eGFR POC Glucometer 149 213 Random Glucose Calcium Phosphorus Total Bilirubin AST ALT Alkaline Phosphatase Total Protein Albumin Urine Color Urine Appearance Urine pH Urine Protein Urine Glucose (UA) Urine Ketones Urine Blood Urine Nitrite Urine Bilirubin Urine Urobilinogen Ur Leukocyte Esterase Urine RBC Urine WBC Ur Epithelial Cells Random Vancomycin Hepatitis C Antibody <0.1 06/29/16 06/30/16 06/30/16 21:49 05:53 06:50 WBC 16.8 H RBC 2.78 L Hgb 7.8 L Hct 24.4 L MCV 87.9 MCHC 31.9 L RDW 15.3 Plt Count 220 MPV 7.7 Neutrophils % 72.5 Lymphocytes % 10.3 D Monocytes % 16.5 H Eosinophils % 0.3 Basophils % 0.4 ESR Sodium Potassium Chloride Carbon Dioxide Anion Gap BUN Creatinine Creat Clearance w eGFR POC Glucometer 199 163 Random Glucose Calcium Phosphorus Total Bilirubin AST ALT Alkaline Phosphatase Total Protein Albumin Urine Color Urine Appearance Urine pH Urine Protein Urine Glucose (UA) Urine Ketones Urine Blood Urine Nitrite Urine Bilirubin Urine Urobilinogen Ur Leukocyte Esterase Urine RBC Urine WBC Ur Epithelial Cells Random Vancomycin Hepatitis C Antibody 06/30/16 06/30/16 06/30/16 06:50 06:50 08:19 WBC RBC Hgb Hct MCV MCHC RDW Plt Count MPV Neutrophils % Lymphocytes % Monocytes % Eosinophils % Basophils % ESR Sodium 136 137 Potassium 4.5 4.4 Chloride 95 L 94 L Carbon Dioxide 30 D 30 Anion Gap 11 13 BUN 45 H D 45 H Creatinine 11.1 H* 11.0 H* Creat Clearance w eGFR 4.88 POC Glucometer Random Glucose 128 H D 124 H Calcium 8.7 8.6 Phosphorus 5.8 H Total Bilirubin 0.6 AST 49 H D ALT 44 D Alkaline Phosphatase 152 H D Total Protein 6.5 Albumin 2.3 L Urine Color Yeny Urine Appearance Turbid Urine pH 5.0 Urine Protein 2+ H Urine Glucose (UA) 2+ H Urine Ketones Negative Urine Blood 2+ H Urine Nitrite Negative Urine Bilirubin Negative Urine Urobilinogen Negative Ur Leukocyte Esterase 2+ H Urine RBC 7 Urine WBC 49 Ur Epithelial Cells Rare Random Vancomycin 11.991 Hepatitis C Antibody 06/30/16 08:50 WBC RBC Hgb Hct MCV MCHC RDW Plt Count MPV Neutrophils % Lymphocytes % Monocytes % Eosinophils % Basophils % ESR 46 H Sodium Potassium Chloride Carbon Dioxide Anion Gap BUN Creatinine Creat Clearance w eGFR POC Glucometer Random Glucose Calcium Phosphorus Total Bilirubin AST ALT Alkaline Phosphatase Total Protein Albumin Urine Color Urine Appearance Urine pH Urine Protein Urine Glucose (UA) Urine Ketones Urine Blood Urine Nitrite Urine Bilirubin Urine Urobilinogen Ur Leukocyte Esterase Urine RBC Urine WBC Ur Epithelial Cells Random Vancomycin Hepatitis C Antibody Active Medications Generic Name Dose Route Start Last Admin Trade Name Freq PRN Reason Stop Dose Admin Acetaminophen 650 mg 06/29/16 14:20 06/30/16 08:22 Tylenol - PO 650 mg Q4H PRN Administration FEVER OR PAIN Calcium Acetate 667 mg 06/29/16 17:30 06/30/16 08:22 Phoslo - PO 667 mg TIDCM MONIK Administration Epoetin Alexander 20,000 units 07/01/16 06:00 Epogen - IVPUSH 07/01/16 06:01 ONCE ONE Heparin Sodium (Porcine) 5,000 unit 06/29/16 22:00 06/30/16 09:34 Heparin - SQ 5,000 unit BID MONIK Administration Piperacillin Sod/Tazobactam Sod 50 mls @ 100 mls/hr 06/29/16 18:00 06/30/16 09: 34 Zosyn 2.25gm Ivpb (Pre-Docked) IVPB 100 mls/hr Q8H-IV MONIK Administration Protocol Vancomycin HCl 1,000 mg/ 250 mls @ 250 mls/hr 06/30/16 11:27 Dextrose IVPB 06/30/16 12:26 ONCE ONE Protocol Insulin Aspart 1 vial 06/29/16 16:30 06/30/16 06:02 Novolog Vial Sliding Scale - SQ 2 units BIDAC MONIK Administration Protocol Insulin Detemir 6 units 06/29/16 22:00 06/29/16 22:09 Levemir Vial SQ 6 units HS MONIK Administration Minoxidil 10 mg 06/30/16 10:00 06/30/16 09:34 Loniten - PO 10 mg DAILY MONIK Administration Mupirocin 1 applic 06/29/16 22:00 06/30/16 09:37 Bactroban 2% Ointment - TP Not Given BID MONIK Oxycodone HCl 5 mg 06/29/16 14:16 06/29/16 15:14 Roxicodone - PO 5 mg Q4H PRN Administration PAIN LEVEL 1-5 Oxycodone HCl 5 mg 06/29/16 14:20 Roxicodone - PO Q8H PRN PAIN Torsemide 20 mg 06/30/16 06:00 06/30/16 06:02 Demadex - PO 20 mg BIDLASIX MONIK Administration IMAGE: foot xray showing soft tissue infection 4th and 5th digits of the right toe metatarsal / r/o osteomylitis ; MRI ASSESSMENT/PLAN: This is a 55 year old male with ESRD on HD (TTS), IDDM, hx of diabetic foot ulcers, admitted for sepsis secondary osteomyelitis. #osteomyelitis: POD#1 right metatarsal head big toe; left foot I&D -sepsis protocol -wound cultures + MRSA -vanco trough 11 today; give 1gm today; recheck trough tomorrow -cont IV zosyn 2.25mg Q8H -f/u CRP and ESR -contact precautions #ESRD: -HD; TTS -dose vanco accordingly Dispo: We will continue to follow the patient. Thank you for this consultative opportunity. Problem List - Problems (1) Sepsis Code(s): A41.9 - SEPSIS, UNSPECIFIED ORGANISM Qualifiers: Sepsis type: sepsis due to unspecified organism Qualified Code(s): A41.9 - Sepsis, unspecified organism (2) Wound infection Code(s): T14.8 - OTHER INJURY OF UNSPECIFIED BODY REGION L08.9 - LOCAL INFECTION OF THE SKIN AND SUBCUTANEOUS TISSUE, UNSP (3) Anemia in ESRD (end-stage renal disease) Code(s): N18.6 - END STAGE RENAL DISEASE D63.1 - ANEMIA IN CHRONIC KIDNEY DISEASE (4) Chronic diabetic ulcer of left foot determined by examination Code(s): E11.621 - TYPE 2 DIABETES MELLITUS WITH FOOT ULCER L97.529 - NON-PRESSURE CHRONIC ULCER OTH PRT LEFT FOOT W UNSP SEVERITY (5) Controlled type 2 diabetes mellitus with foot ulcer Code(s): E11.621 - TYPE 2 DIABETES MELLITUS WITH FOOT ULCER L97.509 - NON-PRESSURE CHRONIC ULCER OTH PRT UNSP FOOT W UNSP SEVERITY (6) Ulcer of right foot Code(s): L97.519 - NON-PRS CHRONIC ULCER OTH PRT RIGHT FOOT W UNSP SEVERITY Visit type - Emergency Visit Emergency Visit: Yes ED Registration Date: 06/27/16 Care time: The patient presented to the Emergency Department on the above date and was hospitalized for further evaluation of their emergent condition. - New Patient This patient is new to me today: No - Critical Care Critical Care patient: No
--- NOTE | 2016-06-30 12:06 | PN ---
Progress Note (short form) - Note Progress Note: Podiatry: Seen and evaluated at bedside, NAD. Pain improved to bilateral feet, does report intermittent fevers. Had Tmax overnight of 101 F. Current temp of 100 F. S/p R foot debridement/lavage with 4th met head resection for severe DM infection and abscess, s/p L foot debridement and lavage POD # 1. ABDIAS: R foot: dressing C/D/I, no active bleeding. Large post-surgical wound along 4th MTPJ with retention sutures proximally and distally, central aspect of wound packed open. There is surrounding erythema. There is no purulent drainage from the operative site. There is no soft tissue crepitation. There is mild tenderness to palpation. Underlying soft tissues are mixed fibrogranular. There are no ischemic skin changes noted. There is instantaneous capillary refill to digits 4/5. There is a sub-4th metatarsal head ulcer with mostly fibrotic base, probing deep. L foot: plantar hallux IPJ ulcer is granular and clean, no probing to bone, no purulence, no fluctuance, no ascending cellulitis, no signs of active infection. There is a sub-5th metatarsal head ulcer that is mostly granular, no probing to bone, no purulence, no fluctuance, no ascending cellulitis, no signs of active infection. Minimal tenderness to palpation. WBC: 16.8 OR Cultures: pending Imp: 55 year old DM M with bilateral foot DFIs, s/p R foot debridement of ulcer , debridement/lavage with 4th metatarsal head resection for severe DFI; s/p L foot debridement and lavage POD #1 1. Saline irrigation at bedside, packing removed. Saline moist to dry reapplied and packed. 2. Non-weightbearing R foot, partial weightbearing L foot to heel. 3. Continue IV abx per ID 4. Pain control 5. I had a thorough discussion with the patient regarding his condition, particularly the severity of the infection. He will likely require further debridement if he does not clinically improve and fevers/leukocytosis do not improve. There is a possibility he will require amputation 4th/5th digits due to the severity of the infection. Patient understands current condition. Guarded prognosis at this point. 6. Will closely follow. Mel Almanzar DPM
--- NOTE | 2016-06-30 13:23 | PN ---
Teaching Attending Note Name of Resident: Bernice Bhagat ATTENDING PHYSICIAN STATEMENT I saw and evaluated the patient. I reviewed the resident's note and discussed the case with the resident. I agree with the resident's findings and plan as documented. SUBJECTIVE: S/P debridement R foot No c/o pain No c/o fever/ chills OBJECTIVE: Cor S1S2 Lungs clear Abdomen soft, non tender R foot wounds examined with Dr Almanzar No purulent drainage/ foul odor ASSESSMENT AND PLAN: S/P I&D R foot Probable chronic osteomyelitis ESRD Await final c/s result Continue zosyn/ vancomycin, adjusted for renal failure
--- NOTE | 2016-06-30 14:47 | PN ---
Physical Exam: SUBJECTIVE: Patient seen and examined at bedside. POD #1 S/p R foot debridement /lavage with 4th met head resection for severe DM infection and abscess, s/p L foot debridement and lavage. No overnight events. No new complaints. Feels ok. Denies CP, MICHAEL, SOB, abd. pain, N/V. OBJECTIVE: Vital Signs Period Temp Pulse Resp BP Sys/Salas Pulse Ox Last 24 Hr 98.1 F-100.3 F 70-80 18-20 128-148/62-69 94 GENERAL: AAOx3, mild distress HEAD: NC/AT EYES:PERRLA, EOMI, sclera anicteric, conjunctiva clear. No lid lag. EARS, NOSE, THROAT: Ears normal, nares patent, oropharynx clear without exudates. Moist mucous membranes. NECK: Normal range of motion, supple without lymphadenopathy, JVD, or masses. LUNGS:CTAB, No wheezes, and no crackles. No accessory muscle use. HEART:RRR, normal S1 and S2 without murmur, rub or gallop. ABDOMEN: Soft, NT/ND, BS(+) no guarding, no rebound, no masses. No hepatomegaly or splenomegaly. LOWER EXTREMITIES: 2+ pulses, warm, well-perfused. mild bilat.calf tenderness. No peripheral edema. Plantar Left foot ulcer on hallux IPJ .Right [id number] and 5th metatarsal head ulcer. NEUROLOGICAL: Cranial nerves II-XII intact. Normal speech. gait not obser Laboratory Results - last 24 hr 06/29/16 06/29/16 06/29/16 06:50 16:42 21:49 WBC RBC Hgb Hct MCV MCHC RDW Plt Count MPV Neutrophils % Lymphocytes % Monocytes % Eosinophils % Basophils % ESR Sodium Potassium Chloride Carbon Dioxide Anion Gap BUN Creatinine Creat Clearance w eGFR POC Glucometer 213 199 Random Glucose Calcium Phosphorus Total Bilirubin AST ALT Alkaline Phosphatase Total Protein Albumin Urine Color Urine Appearance Urine pH Ur Specific [place] Urine Protein Urine Glucose (UA) Urine Ketones Urine Blood Urine Nitrite Urine Bilirubin Urine Urobilinogen Ur Leukocyte Esterase Urine RBC Urine WBC Ur Epithelial Cells Random Vancomycin Hepatitis C Antibody <0.1 06/30/16 06/30/16 06/30/16 05:53 06:50 06:50 WBC 16.8 H RBC 2.78 L Hgb 7.8 L Hct 24.4 L MCV 87.9 MCHC 31.9 L RDW 15.3 Plt Count 220 MPV 7.7 Neutrophils % 72.5 Lymphocytes % 10.3 D Monocytes % 16.5 H Eosinophils % 0.3 Basophils % 0.4 ESR Sodium 136 Potassium 4.5 Chloride 95 L Carbon Dioxide 30 D Anion Gap 11 BUN 45 H D Creatinine 11.1 H* Creat Clearance w eGFR POC Glucometer 163 Random Glucose 128 H D Calcium 8.7 Phosphorus 5.8 H Total Bilirubin AST ALT Alkaline Phosphatase Total Protein Albumin Urine Color Urine Appearance Urine pH Ur Specific [place] Urine Protein Urine Glucose (UA) Urine Ketones Urine Blood Urine Nitrite Urine Bilirubin Urine Urobilinogen Ur Leukocyte Esterase Urine RBC Urine WBC Ur Epithelial Cells Random Vancomycin Hepatitis C Antibody 06/30/16 06/30/16 06/30/16 06:50 08:19 08:50 WBC RBC Hgb Hct MCV MCHC RDW Plt Count MPV Neutrophils % Lymphocytes % Monocytes % Eosinophils % Basophils % ESR 46 H Sodium 137 Potassium 4.4 Chloride 94 L Carbon Dioxide 30 Anion Gap 13 BUN 45 H Creatinine 11.0 H* Creat Clearance w eGFR 4.88 POC Glucometer Random Glucose 124 H Calcium 8.6 Phosphorus Total Bilirubin 0.6 AST 49 H D ALT 44 D Alkaline Phosphatase 152 H D Total Protein 6.5 Albumin 2.3 L Urine Color Yeny Urine Appearance Turbid Urine pH 5.0 Ur Specific [place] 1.020 Urine Protein 2+ H Urine Glucose (UA) 2+ H Urine Ketones Negative Urine Blood 2+ H Urine Nitrite Negative Urine Bilirubin Negative Urine Urobilinogen Negative Ur Leukocyte Esterase 2+ H Urine RBC 7 Urine WBC 49 Ur Epithelial Cells Rare Random Vancomycin 11.991 Hepatitis C Antibody Active Medications Generic Name Dose Route Start Last Admin Trade Name Freq PRN Reason Stop Dose Admin Acetaminophen 650 mg 06/29/16 14:20 06/30/16 08:22 Tylenol - PO 650 mg Q4H PRN Administration FEVER OR PAIN Calcium Acetate 667 mg 06/29/16 17:30 06/30/16 12:37 Phoslo - PO 667 mg TIDCM MONIK Administration Epoetin Alexander 20,000 units 07/01/16 06:00 Epogen - IVPUSH 07/01/16 06:01 ONCE ONE Heparin Sodium (Porcine) 5,000 unit 06/29/16 22:00 06/30/16 09:34 Heparin - SQ 5,000 unit BID MONIK Administration Piperacillin Sod/Tazobactam Sod 50 mls @ 100 mls/hr 06/29/16 18:00 06/30/16 09: 34 Zosyn 2.25gm Ivpb (Pre-Docked) IVPB 100 mls/hr Q8H-IV MONIK Administration Protocol Insulin Aspart 1 vial 06/29/16 16:30 06/30/16 06:02 Novolog Vial Sliding Scale - SQ 2 units BIDAC MONIK Administration Protocol Insulin Detemir 6 units 06/29/16 22:00 06/29/16 22:09 Levemir Vial SQ 6 units HS MONIK Administration Minoxidil 10 mg 06/30/16 10:00 06/30/16 09:34 Loniten - PO 10 mg DAILY MONIK Administration Mupirocin 1 applic 06/29/16 22:00 06/30/16 09:37 Bactroban 2% Ointment - TP Not Given BID MONIK Oxycodone HCl 5 mg 06/29/16 14:16 06/29/16 15:14 Roxicodone - PO 5 mg Q4H PRN Administration PAIN LEVEL 1-5 Oxycodone HCl 5 mg 06/29/16 14:20 Roxicodone - PO Q8H PRN PAIN Torsemide 20 mg 06/30/16 06:00 06/30/16 14:34 Demadex - PO 20 mg BIDLASIX MONIK Administration IMAGING: * MRI/LOWER EXTREMITY MRI W/O CONTR MRI of the right foot. Clinical information : Cellulitis. Rule out osteomyelitis. Sagittal coronal and axial T1 and T2- weighted images of the right foot were obtained. There is extensive soft tissue swelling of the foot and is related to cellulitis. No soft tissue abscess is identified. There is edema of the bone marrow of the head of the fourth metatarsal suspicious for osteomyelitis. There are no other bony lesions. There is no disruption of the flexor or extensor tendons. Impression: Extensive cellulitis of the foot with osteomyelitis of the head of the fourth metatarsal. There is no soft tissue abscess. Reported By: Sunil Garza MD 06/28/16 [id number] ASSESSMENT/PLAN: 55 yo M with significant PMHx. of IDDM, ESRD (HD //),HTN and chronic foot ulcers(Wound Center [facility]), presents with 5 day history of flu like symptoms admitted to inpatient service for sepsis secondary to foot ulcer infection. Problem List - Problems (1) Sepsis Assessment/Plan: * Osteomyelitis of foot. Will need extended period of IV ABx. * ESR trending down 89-->46 * Vanco/Zosyn for presumptive MRSA from Intraoperative specimen. * Bone biopsy cultures pending. * oxycodone prn for pain Qualifiers: Sepsis type: sepsis due to unspecified organism Qualified Code(s): A41.9 - Sepsis, unspecified organism (2) Wound infection Assessment/Plan: * Continue Vanco/Zosyn * POD#1 S/P L foot excisional debridement of ulcer x 2. R foot debridement and lavage. R 4th metatarsal resection with bone biopsy * Extensive liquefactive tissue with thrombosed vessels, purulence from 4th interspace; severe diabetic infection * Daily wound care. * Dr. Almanzar consult appreciated. * MRI shows osteomyelitis. (3) Diabetes mellitus with nephropathy Assessment/Plan: * Renal/ADA diet * ISS AC * BGM ACHS * Levemir 6 Units HS (4) ESRD (end stage renal disease) Assessment/Plan: * Dr. Espinosa consult appreciated. * Dialyzed today prior to OR * Renal diet * avoid nephrotoxins. * repeat AM labs. (5) Hyponatremia Assessment/Plan: * Continue IVF * repeat labs tomorrow (6) HTN (hypertension) Assessment/Plan: * Minoxidil 10mg PO AM * Hold for SBP <90 * followed by Dr. Dueñas in community (7) DVT prophylaxis Assessment/Plan: * Heparin 5000 units BID Visit type - Emergency Visit Emergency Visit: Yes ED Registration Date: 06/27/16 Care time: The patient presented to the Emergency Department on the above date and was hospitalized for further evaluation of their emergent condition. - New Patient This patient is new to me today: No - Critical Care Critical Care patient: No
--- NOTE | 2016-06-30 19:11 | PN ---
Teaching Attending Note Name of Resident: Steven Constantino ATTENDING PHYSICIAN STATEMENT I saw and evaluated the patient. I reviewed the resident's note and discussed the case with the resident. I agree with the resident's findings and plan as documented. SUBJECTIVE: no pain , no SOB OBJECTIVE: NAD Cv : RRR Lungs : CTAB ext: no L foot with ulcer on 1st MTP joint and 4th MTP. refused R foot exam. L DP 2+ ASSESSMENT AND PLAN: 55 y/o man with h/o HTN, ESRD adn IDDm who is being treated for sepsis from infected wounds on feet and OM of R 4th metatarsal head . 1- sepsis due to DFI and OM 4th Metatarsal head. s/p debridment of L and wash out . POD 1 - cont to have fever , and leukocysosi - cont vanco and zosyn - migh need further debridment 2- HTn cont meds 3- Dm : cont insulin HLOC
[2016-06-30] MEDS: INSULIN DETEMIR 100 UNITS/ML MDV SQ SCH (22:01)
[2016-07-01 00:08] LABS: HEP B SURFACE AB Reactive (.)
[2016-07-01] MEDS: PIPERACILLIN/TAZOB 2.25 GM 50 ML IVPB SCH ×3 (02:54→17:33)
[2016-07-01] MEDS: TORSEMIDE 20 MG TABLET (FP) PO SCH ×2 (06:20→14:26)
[2016-07-01] MEDS: INSULIN SLIDING SCALE (NOVOLOG) 1 VIAL SQ SCH ×2 (06:23→17:33)
[2016-07-01 08:46] LABS: BASOPHIL 0.5 % (0-2.0); EOSINOPHIL 1.5 % (0-4.5); MCH 27.9 pg (25.7-33.7); MCHC 31.8 g/dl (32.0-35.9); MEAN CELL VOLUME 87.8 fl (80-96); MEAN PLT VOLUME 7.9 fl (7.5-11.1); NEUTROPHILS 72.4 % (42.8-82.8); PLATELET COUNT 246 K/MM3 (134-434); RDW 15.4 % (11.9-15.9); WHITE BLOOD COUNT 17.2 K/mm3 (4.0-10.0)
[2016-07-01] MEDS ORDERED: EPOETIN ALFA 20,000 UNIT/1 ML VIAL IVPUSH ONE (09:00)
[2016-07-01 09:17] LABS: ALBUMIN 2.3 g/dl (3.4-5.0); BILIRUBIN,TOTAL 0.6 mg/dL (0.2-1.0); CALCIUM 8.6 mg/dL (8.5-10.1); COCKROFT - GAULT 7.96; TOT PROT 6.7 g/dl (6.4-8.2)
[2016-07-01] MEDS: HEPARIN NA (PORCINE) 5,000 UNITS/ML 1ML VIAL SQ SCH ×2 (11:34→21:30)
[2016-07-01] MEDS: MUPIROCIN 2% TOPICAL OINTMENT 22 GM TUBE TP SCH ×2 (11:34→21:34)
[2016-07-01] MEDS: CALCIUM ACETATE 667 MG CAPSULE (FP) PO SCH ×3 (11:34→17:33)
[2016-07-01] MEDS: MINOXIDIL 10 MG TABLET PO SCH (11:35)
[2016-07-01 11:37] LABS: CREATININE 13.4 mg/dL (0.7-1.3)
--- NOTE | 2016-07-01 12:52 | PN ---
Progress Note (short form) - Note Progress Note: Podiatry: Seen and evaluated at bedside, NAD. Pain controlled, denies F/V/N/C/SOB/CP. S/ p R foot debridement with 4th metatarsal head resection POD # 2. Having low grade temp, however currently afebrile. ABDIAS: R foot: dressing C/D/I, no active bleeding. Sutures coapted proximally and distally, wound packed open centrally. Mixed fibrogranular base, no purulence expressed, serous drainage, surrounding tissues look a bit dusky. CFT delayed to toes 4th/5th. Mild periwound erythema. No soft tissue crepitus. Mild tenderness to palpation. WBC: 17.0 OR Bone Cx: MRSA Imp: 55 year old IDDM M s/p R foot debridement/lavage with 4th metatarsal head resection 1. C/w IV abx per ID 2. Saline irrigation at bedside, 3. Discussed with potential likelihood of further debridement. Will likely need 4th/5th toe amputation to erradicate infection. He is understanding of prognosis. Will check tomorrow in am and determine course of further surgery. Mel Almanzar DPM
[2016-07-01] MEDS ORDERED: VANCOMYCIN 1 GRAM (PRE-DOCKED) 250 ML IVPB ONE (15:25)
--- NOTE | 2016-07-01 15:31 | PN ---
Progress Note, Physician History of Present Illness: No complaints of foot pain Still with low grade fever, elevated WBC Wound c/s growing MRSA, anaerobe - Current Medication List Current Medications: Active Medications Acetaminophen (Tylenol -) 650 mg PO Q4H PRN PRN Reason: FEVER OR PAIN Last Admin: 06/30/16 08:22 Dose: 650 mg Calcium Acetate (Phoslo -) 667 mg PO TIDCM [facility] Last Admin: 07/01/16 12:22 Dose: 667 mg Heparin Sodium (Porcine) (Heparin -) 5,000 unit SQ BID [facility] Last Admin: 07/01/16 11:34 Dose: Not Given Piperacillin Sod/Tazobactam Sod (Zosyn 2.25gm Ivpb (Pre-Docked)) 50 mls @ 100 mls/hr IVPB Q8H-IV [facility] PRN Reason: Protocol Last Admin: 07/01/16 11:35 Dose: Not Given Vancomycin HCl 1,000 mg/ (Dextrose) 250 mls @ 200 mls/hr IVPB ONCE ONE Stop: 07/01/16 16:39 Insulin Aspart (Novolog Vial Sliding Scale -) 1 vial SQ BIDAC [facility] PRN Reason: Protocol Last Admin: 07/01/16 06:23 Dose: Not Given Insulin Detemir (Levemir Vial) 6 units SQ HS [facility] Last Admin: 06/30/16 22:01 Dose: 6 units Minoxidil (Loniten -) 10 mg PO DAILY [facility] Last Admin: 07/01/16 11:35 Dose: Not Given Mupirocin (Bactroban 2% Ointment -) 1 applic TP BID [facility] Last Admin: 07/01/16 11:34 Dose: Not Given Oxycodone HCl (Roxicodone -) 5 mg PO Q4H PRN PRN Reason: PAIN LEVEL 1-5 Last Admin: 06/29/16 15:14 Dose: 5 mg Oxycodone HCl (Roxicodone -) 5 mg PO Q8H PRN PRN Reason: PAIN Torsemide (Demadex -) 20 mg PO BIDLASIX [facility] Last Admin: 07/01/16 14:26 Dose: 20 mg - Objective Vital Signs: Vital Signs Temperature 99.5 F 07/01/16 15:01 Pulse Rate 83 07/01/16 15:01 Respiratory Rate 20 07/01/16 15:01 Blood Pressure 145/70 05/18/17 15:01 O2 Sat by Pulse Oximetry (%) 94 L 06/29/16 21:00 Constitutional: Yes: No Distress Eyes: Yes: Conjunctiva Clear Cardiovascular: Yes: Regular Rate and Rhythm, S1, S2 Respiratory: Yes: CTA Bilaterally Gastrointestinal: Yes: Normal Bowel Sounds, Soft. No: Tenderness Extremities: Yes: Other (R foot surgical wound examined no purulent drainage or foul odor) Labs: CBC, BMP 07/01/16 06:30 07/01/16 06:30 INR, PTT INR 1.46 (0.82-1.09) H 06/27/16 20:25 Assessment/Plan POD #2 I&D diabetic foot infection Osteomyelitis R foot Wound c/s polymicrobial MRSA/ anaerobe / diphtheroid Continue zosyn/ vancomycin, adjusted for ESRD Local wound care
--- NOTE | 2016-07-01 15:38 | PN ---
Teaching Attending Note Name of Resident: Steven Constantino ATTENDING PHYSICIAN STATEMENT I saw and evaluated the patient. I reviewed the resident's note and discussed the case with the resident. I agree with the resident's findings and plan as documented. SUBJECTIVE: no fever or chills , denies any pain. no SOB or CP OBJECTIVE: NAD Cv : RRR Lungs : CTAB ext: L foot with ulcer on 1st MTP joint and 4th MTP. R foot with a surgical wound on dorsum at level of 4th metatarsal head, with ulcer on sole at same level ASSESSMENT AND PLAN: 55 y/o man with h/o HTN, ESRD adn IDDm who is being treated for sepsis from infected wounds on feet and OM of R 4th metatarsal head . 1- Sepsis due to DFI and OM 4th Metatarsal head. s/p debridment and 4th metatarsal head resection and wash out . POD 2 -no fever , but cont with leukocytosis - cont vanco and zosyn. - might need further debridment 2- HTn cont minoxidil . missed this am , before HD 3- ESRD: cont HD TTS D/W dr. Torres 4- Dm : cont levemir and SSi if debridment to be done tomorrow , will decrease levemir HS dose HLOC
--- NOTE | 2016-07-01 16:35 | PN ---
Progress Note (short form) - Note Progress Note: Renal Follow up for ESRD on HD Pt seen and examined during dialysis BP was high at the start of the treatment, improved with UF total UF goal is 2.5 L Vaco level drawn no acute complaints. Vital Signs Temperature 99.5 F 07/01/16 15:01 Pulse Rate 83 07/01/16 15:01 Respiratory Rate 20 07/01/16 15:01 Blood Pressure 145/70 07/01/16 15:01 O2 Sat by Pulse Oximetry (%) 94 L 06/29/16 21:00 Intake & Output 06/28/16 06/29/16 06/30/16 07/01/16 23:59 23:59 23:59 23:59 Intake Total 642 243 6939 Output Total 20 240 Balance 001 846 7040 -240 Weight 199 lb 195 lb 2 oz 199 lb 7 oz Gen: NAD, awake and alert HEENT: No JVD CVS: RRR, No M/R Lungs: CTA Abd: soft NT/ND Ext: No edema, clubbing or edema CBC, BMP 07/01/16 06:30 07/01/16 06:30 Current Medications Acetaminophen (Tylenol -) 650 mg PO Q4H PRN PRN Reason: FEVER OR PAIN Last Admin: 06/30/16 08:22 Dose: 650 mg Calcium Acetate (Phoslo -) 667 mg PO TIDCM [facility] Last Admin: 07/01/16 12:22 Dose: 667 mg Heparin Sodium (Porcine) (Heparin -) 5,000 unit SQ BID [facility] Last Admin: 07/01/16 11:34 Dose: Not Given Piperacillin Sod/Tazobactam Sod (Zosyn 2.25gm Ivpb (Pre-Docked)) 50 mls @ 100 mls/hr IVPB Q8H-IV [facility] PRN Reason: Protocol Last Admin: 07/01/16 11:35 Dose: Not Given Vancomycin HCl (Vancomycin (Pre-Docked)) 250 mls @ 166.667 mls/hr IVPB ONCE ONE Stop: 07/01/16 16:54 Insulin Aspart (Novolog Vial Sliding Scale -) 1 vial SQ BIDAC [facility] PRN Reason: Protocol Last Admin: 07/01/16 06:23 Dose: Not Given Insulin Detemir (Levemir Vial) 6 units SQ HS [facility] Last Admin: 06/30/16 22:01 Dose: 6 units Minoxidil (Loniten -) 10 mg PO DAILY [facility] Last Admin: 07/01/16 11:35 Dose: Not Given Mupirocin (Bactroban 2% Ointment -) 1 applic TP BID [facility] Last Admin: 07/01/16 11:34 Dose: Not Given Oxycodone HCl (Roxicodone -) 5 mg PO Q4H PRN PRN Reason: PAIN LEVEL 1-5 Last Admin: 06/29/16 15:14 Dose: 5 mg Oxycodone HCl (Roxicodone -) 5 mg PO Q8H PRN PRN Reason: PAIN Torsemide (Demadex -) 20 mg PO BIDLASIX [facility] Last Admin: 07/01/16 14:26 Dose: 20 mg A/P 55 year old Male with PMhx of ESRD on HD, Hypertension, DM who presented with Fever and LE wound #ESRD on HD Tolerating dialysis well today goal UF is 2.5L #Acute on Chronic Anemia Continue high dose epogen with HD no IV iron given active tissue infection #LE Wound/Infection MRSA in wound cultures continue Abx Id follow up Vanco dosed by levels following dialysis #Hypertension Hx of refractory Hypertension Continue Minoxidil, Torsemide Cm Torres DO
--- NOTE | 2016-07-01 18:43 | PN ---
Physical Exam: SUBJECTIVE: Patient seen and examined at bedside. POD #2 S/P R foot debridement /lavage with 4th met head resection for severe DM infection and abscess, s/p L foot debridement and lavage. No overnight events. No new complaints. He feels better and pain well controlled. Denies CP, MICHAEL, SOB, abd. pain, N/V. OBJECTIVE: Vital Signs Period Temp Pulse Resp BP Sys/Salas Pulse Ox Last 24 Hr 98.1 F-100.3 F 70-80 18-20 128-148/62-69 94 GENERAL: AAOx3, mild distress HEAD: NC/AT EYES:PERRLA, EOMI, sclera anicteric, conjunctiva clear. No lid lag. EARS, NOSE, THROAT: Ears normal, nares patent, oropharynx clear without exudates. Moist mucous membranes. NECK: Normal range of motion, supple without lymphadenopathy, JVD, or masses. LUNGS:CTAB, No wheezes, and no crackles. No accessory muscle use. HEART:RRR, normal S1 and S2 without murmur, rub or gallop. ABDOMEN: Soft, NT/ND, BS(+) no guarding, no rebound, no masses. No hepatomegaly or splenomegaly. LOWER EXTREMITIES: 2+ pulses, warm, well-perfused. mild bilat.calf tenderness. No peripheral edema. Plantar Left foot ulcer on hallux IPJ with no signs of infection .Right [id number] and 5th metatarsal head ulcer and 3cm incision or dorsal aspect of foot packed . NEUROLOGICAL: Cranial nerves II-XII intact. Normal speech. gait not observed Laboratory Results - last 24 hr 06/29/16 06/30/16 07/01/16 06:50 18:55 06:22 WBC RBC Hgb Hct MCV MCHC RDW Plt Count MPV Neutrophils % Lymphocytes % Monocytes % Eosinophils % Basophils % Sodium Potassium Chloride Carbon Dioxide Anion Gap BUN Creatinine Creat Clearance w eGFR POC Glucometer 126 Random Glucose Calcium Total Bilirubin AST ALT Alkaline Phosphatase Total Protein Albumin Vancomycin Trough Random Vancomycin 23.519 Hep A IgM Ab Confirm Negative Hepatitis A Ab Total Positive H Hep Bs Antigen Negative Hep Bs Antibody Reactive Hep B Core Total Ab Negative 07/01/16 07/01/16 07/01/16 06:30 06:30 07:40 WBC 17.2 H RBC 2.82 L Hgb 7.9 L Hct 24.8 L MCV 87.8 MCHC 31.8 L RDW 15.4 Plt Count 246 MPV 7.9 Neutrophils % 72.4 Lymphocytes % 12.0 Monocytes % 13.6 H Eosinophils % 1.5 D Basophils % 0.5 Sodium 136 Potassium 4.7 Chloride 93 L Carbon Dioxide 28 Anion Gap 15 BUN 64 H D Creatinine 13.4 H* D Creat Clearance w eGFR 3.88 POC Glucometer Random Glucose 109 H Calcium 8.6 Total Bilirubin 0.6 AST 40 H ALT 47 Alkaline Phosphatase 136 H Total Protein 6.7 Albumin 2.3 L Vancomycin Trough Random Vancomycin 23.004 Hep A IgM Ab Confirm Hepatitis A Ab Total Hep Bs Antigen Hep Bs Antibody Hep B Core Total Ab 07/01/16 07/01/16 11:15 17:19 WBC RBC Hgb Hct MCV MCHC RDW Plt Count MPV Neutrophils % Lymphocytes % Monocytes % Eosinophils % Basophils % Sodium Potassium Chloride Carbon Dioxide Anion Gap BUN Creatinine Creat Clearance w eGFR POC Glucometer 191 Random Glucose Calcium Total Bilirubin AST ALT Alkaline Phosphatase Total Protein Albumin Vancomycin Trough 15.157 H* D Random Vancomycin Hep A IgM Ab Confirm Hepatitis A Ab Total Hep Bs Antigen Hep Bs Antibody Hep B Core Total Ab Active Medications Generic Name Dose Route Start Last Admin Trade Name Freq PRN Reason Stop Dose Admin Acetaminophen 650 mg 06/29/16 14:20 06/30/16 08:22 Tylenol - PO 650 mg Q4H PRN Administration FEVER OR PAIN Calcium Acetate 667 mg 06/29/16 17:30 07/01/16 17:33 Phoslo - PO 667 mg TIDCM [facility] Administration Heparin Sodium (Porcine) 5,000 unit 06/29/16 22:00 07/01/16 11:34 Heparin - SQ Not Given BID [facility] Piperacillin Sod/Tazobactam Sod 50 mls @ 100 mls/hr 06/29/16 18:00 07/01/16 17: 33 Zosyn 2.25gm Ivpb (Pre-Docked) IVPB 100 mls/hr Q8H-IV [facility] Administration Protocol Insulin Aspart 1 vial 06/29/16 16:30 07/01/16 17:33 Novolog Vial Sliding Scale - SQ 2 units BIDAC [facility] Administration Protocol Insulin Detemir 6 units 06/29/16 22:00 06/30/16 22:01 Levemir Vial SQ 6 units HS [facility] Administration Minoxidil 10 mg 06/30/16 10:00 07/01/16 11:35 Loniten - PO Not Given DAILY [facility] Mupirocin 1 applic 06/29/16 22:00 07/01/16 11:34 Bactroban 2% Ointment - TP Not Given BID [facility] Oxycodone HCl 5 mg 06/29/16 14:16 06/29/16 15:14 Roxicodone - PO 5 mg Q4H PRN Administration PAIN LEVEL 1-5 Oxycodone HCl 5 mg 06/29/16 14:20 Roxicodone - PO Q8H PRN PAIN Torsemide 20 mg 06/30/16 06:00 07/01/16 14:26 Demadex - PO 20 mg BIDLASIX [facility] Administration IMAGING: * MRI/LOWER EXTREMITY MRI W/O CONTR MRI of the right foot. Clinical information : Cellulitis. Rule out osteomyelitis. Sagittal coronal and axial T1 and T2- weighted images of the right foot were obtained. There is extensive soft tissue swelling of the foot and is related to cellulitis. No soft tissue abscess is identified. There is edema of the bone marrow of the head of the fourth metatarsal suspicious for osteomyelitis. There are no other bony lesions. There is no disruption of the flexor or extensor tendons. Impression: Extensive cellulitis of the foot with osteomyelitis of the head of the fourth metatarsal. There is no soft tissue abscess. Reported By: Sunil Garza MD 06/28/16 2234 ASSESSMENT/PLAN: 55 yo M with significant PMHx. of IDDM, ESRD,HTN and chronic foot ulcers admitted to inpatient service for sepsis secondary to foot ulcer infection and osteomyelitis. Problem List - Problems (1) Sepsis Assessment/Plan: * Continues to have low grade temp. and no real change in WBC. * Osteomyelitis of foot. Will need extended period of IV ABx. * Continue Vanco/Zosyn for presumptive MRSA from Intraoperative specimen. * Bone biopsy cultures pending. * oxycodone prn for pain (2) Wound infection Assessment/Plan: * Continue Vanco/Zosyn * Will get Vanco level tommorrow and dose Vanco as needed. * Dr. Almanzar will assess in AM for need for further surgical intervention. -- >NPO after breakfast * POD#2 S/P L foot excisional debridement of ulcer x 2. R foot debridement and lavage. R 4th metatarsal resection with bone biopsy * Extensive liquefactive tissue with thrombosed vessels, purulence from 4th interspace; severe diabetic infection * Daily wound care. (3) Diabetes mellitus with nephropathy Assessment/Plan: * Renal/ADA diet * ISS AC * BGM ACHS * Levemir 6 Units HS * NPO after breakfast tomorrow. (4) ESRD (end stage renal disease) Assessment/Plan: * Dialyzed today * Renal diet * avoid nephrotoxins. * repeat AM labs. (5) Hyponatremia Assessment/Plan: * Continue IVF * repeat labs tomorrow (6) HTN (hypertension) Assessment/Plan: * Minoxidil 10mg PO AM not given today because of HD * Hold for SBP <90 * followed by Dr. Dueñas in community (7) DVT prophylaxis Assessment/Plan: * Heparin 5000 units BID Visit type - Emergency Visit Emergency Visit: Yes ED Registration Date: 06/27/16 Care time: The patient presented to the Emergency Department on the above date and was hospitalized for further evaluation of their emergent condition. - New Patient This patient is new to me today: No - Critical Care Critical Care patient: No - Discharge Referral Referred to [facility] Med P.C.: No
[2016-07-01] MEDS: INSULIN DETEMIR 100 UNITS/ML MDV SQ SCH (21:31)
[2016-07-01] MEDS: ACETAMINOPHEN 325 MG TABLET (FP) PO PRN (22:28)
[2016-07-02] MEDS: PIPERACILLIN/TAZOB 2.25 GM 50 ML IVPB SCH ×3 (01:38→17:11)
[2016-07-02] MEDS: TORSEMIDE 20 MG TABLET (FP) PO SCH ×2 (05:49→14:10)
[2016-07-02] MEDS: INSULIN SLIDING SCALE (NOVOLOG) 1 VIAL SQ SCH ×2 (06:00→17:21)
[2016-07-02 07:32] LABS: BASOPHIL 0.6 % (0-2.0); EOSINOPHIL 1.8 % (0-4.5); MCH 28.8 pg (25.7-33.7); MCHC 32.9 g/dl (32.0-35.9); MEAN CELL VOLUME 87.5 fl (80-96); MEAN PLT VOLUME 7.8 fl (7.5-11.1); NEUTROPHILS 68.9 % (42.8-82.8); PLATELET COUNT 263 K/MM3 (134-434); WHITE BLOOD COUNT 15.4 K/mm3 (4.0-10.0)
--- NOTE | 2016-07-02 07:46 | PN ---
Progress Note (short form) - Note Progress Note: Podiatry: Seen and evaluated at bedside, NAD. Continues to have fever spikes, Tmax yesterday 101.7. Currently low grade temp 99 F. S/p R foot debridement/lavage with 4th met head resection. ABDIAS: R foot: 4th interspace incision with surrounding dusky tissues. 4th toe appears dusky. There is superficial eschar in surrounding tissues. There is significant serous drainage. No purulence, no soft tissue crepitus. Fibrotic sub-4th metatarsal ulcer. Minimal tenderness to palpation. Surrounding erythema. WBC: 15.4 Blood Cx: negative Imp: 55 year old DM M s/p R foot debridement/lavage 1. C/w IV abx 2. DSD R foot 3. Will need debridement/lavage this afternoon. Discussed with patient given clinical appearance and not a significant clinical improvement, will likely require 4th/5th toe amputation. Patient understands. 4. NPO after breakfast. 5. Will closely follow. For OR in afternoon. Mel Almanzar DPM
[2016-07-02 08:00] LABS: ALBUMIN 2.2 g/dl (3.4-5.0); BILIRUBIN,TOTAL 0.6 mg/dL (0.2-1.0); CALCIUM 8.2 mg/dL (8.5-10.1); TOT PROT 6.2 g/dl (6.4-8.2)
[2016-07-02 08:08] LABS: COCKROFT - GAULT 10.26
[2016-07-02 08:54] LABS: CREATININE 10.4 mg/dL (0.7-1.3)
[2016-07-02] MEDS: CALCIUM ACETATE 667 MG CAPSULE (FP) PO SCH ×3 (09:05→17:03)
[2016-07-02] MEDS: HEPARIN NA (PORCINE) 5,000 UNITS/ML 1ML VIAL SQ SCH ×2 (09:54→21:38)
[2016-07-02] MEDS: MUPIROCIN 2% TOPICAL OINTMENT 22 GM TUBE TP SCH ×2 (09:56→21:44)
[2016-07-02] MEDS: MINOXIDIL 10 MG TABLET PO SCH (10:02)
--- NOTE | 2016-07-02 14:18 | PN ---
Progress Note (short form) - Note Progress Note: Renal Follow up for ESRD on HD Pt seen and examined at the bedside for further debridement and possible metatarsal amputation today febrile overnight no sob or chest pain Vital Signs Temperature 99 F 07/02/16 06:38 Pulse Rate 76 07/02/16 10:00 Respiratory Rate 18 07/02/16 10:00 Blood Pressure 168/70 07/02/16 10:00 O2 Sat by Pulse Oximetry (%) 94 L 06/29/16 21:00 Intake & Output 06/29/16 06/30/16 07/01/16 07/02/16 23:59 23:59 23:59 23:59 Intake Total 510 1310 750 50 Output Total 20 240 Balance 490 1310 510 50 Weight 199 lb 195 lb 2 oz 199 lb 7 oz Gen: NAD, awake and alert HEENT: No JVD CVS: RRR, No M/R Lungs: CTA Abd: soft NT/ND Ext: No edema, clubbing or edema CBC, BMP 07/02/16 06:30 07/02/16 06:30 Current Medications Acetaminophen (Tylenol -) 650 mg PO Q4H PRN PRN Reason: FEVER OR PAIN Last Admin: 07/01/16 22:28 Dose: 650 mg Calcium Acetate (Phoslo -) 667 mg PO TIDCM [facility] Last Admin: 07/02/16 13:21 Dose: Not Given Heparin Sodium (Porcine) (Heparin -) 5,000 unit SQ BID [facility] Last Admin: 07/02/16 09:54 Dose: Not Given Piperacillin Sod/Tazobactam Sod (Zosyn 2.25gm Ivpb (Pre-Docked)) 50 mls @ 100 mls/hr IVPB Q8H-IV [facility] PRN Reason: Protocol Last Admin: 07/02/16 09:55 Dose: 100 mls/hr Insulin Aspart (Novolog Vial Sliding Scale -) 1 vial SQ BIDAC [facility] PRN Reason: Protocol Last Admin: 07/02/16 06:00 Dose: Not Given Insulin Detemir (Levemir Vial) 6 units SQ HS [facility] Last Admin: 07/01/16 21:31 Dose: 6 units Minoxidil (Loniten -) 10 mg PO DAILY [facility] Last Admin: 07/02/16 10:02 Dose: 10 mg Mupirocin (Bactroban 2% Ointment -) 1 applic TP BID [facility] Last Admin: 07/02/16 09:56 Dose: Not Given Oxycodone HCl (Roxicodone -) 5 mg PO Q8H PRN PRN Reason: PAIN Torsemide (Demadex -) 20 mg PO BIDLASIX [facility] Last Admin: 07/02/16 14:10 Dose: Not Given A/P 55 year old Male with PMhx of ESRD on HD, Hypertension, DM who presented with Fever and LE wound #ESRD on HD no acute indication for dialysis today for next dialysis tomorrow #Acute on Chronic Anemia Continue high dose epogen with HD #LE Wound/Infection MRSA in wound cultures continue Vanco dosed by levels Surgical management as per Podiatry #Hypertension Hx of refractory Hypertension Continue Minoxidil, Torsemide Cm Torres DO
--- NOTE | 2016-07-02 14:33 | PN ---
Progress Note (short form) - Note Progress Note: no complaints Vital Signs Period Temp Pulse Resp BP Sys/Salas Pulse Ox Last 24 Hr 98.3 F-101.4 F 76-90 18-20 134-168/63-78 cor-rrr lungs clear foot bandaged CBC, BMP 07/02/16 06:30 07/02/16 06:30 Microbiology 06/27/16 13:25 Blood - Peripheral Venous Blood Culture - Final NO GROWTH AFTER 5 DAYS INCUBATION 06/27/16 12:55 Blood - Peripheral Venous Blood Culture - Final NO GROWTH AFTER 5 DAYS INCUBATION 06/29/16 14:16 Bone Tissue Culture - Preliminary Mr S Aureus Pending Organism 06/29/16 14:16 Bone Anaerobic Culture - Final NO ANAEROBES WERE ISOLATED 06/27/16 12:55 Nasopharyngeal Swab Respiratory Virus Panel - Final 07/01/16 07:10 Blood - Pre-Dialysis Blood Culture - Preliminary NO GROWTH OBTAINED AFTER 24 HOURS, INCUBATION TO CONTINUE FOR 4 DAYS. 07/01/16 07:40 Blood - Pre-Dialysis Blood Culture - Preliminary NO GROWTH OBTAINED AFTER 24 HOURS, INCUBATION TO CONTINUE FOR 4 DAYS. 06/29/16 13:30 Tissue-Other Tissue Culture - Preliminary Mr S Aureus Diphtheroid/Corynebacterium Streptococcus Species 06/29/16 13:30 Tissue-Other Anaerobic Culture - Final NO ANAEROBES WERE ISOLATED 06/28/16 11:30 Toe - Left Hallux Gram Stain - Final 06/28/16 11:30 Toe - Left Hallux Wound Culture - Final Mr S Aureus Anaerococcus Prevotii 06/27/16 13:34 Wound-Other Gram Stain - Final 06/27/16 13:34 Wound-Other Wound Culture - Final Mr S Aureus Diphtheroid/Corynebacterium 06/27/16 12:55 Nasopharyngeal Swab Influenza Types A,B Antigen (JUDE) - Final 06/27/16 12:55 Nasopharyngeal Swab - Final a/p intermittent fevers- podiatry noed reviewed, for further debridement today continue vancomycin per levels, continue zosyn for now- hopefully de-escalate zosyn soon if no GNR isolated esrd/HD
--- NOTE | 2016-07-02 18:38 | PN ---
Physical Exam: SUBJECTIVE: Patient seen and examined at bedside.No overnight events. No new complaints. Feels depressed that he might lose his toes. Denies CP,MICHAEL.SOB, Abd. pain, palpitations, N/V. OBJECTIVE: Vital Signs Period Temp Pulse Resp BP Sys/Salas Pulse Ox Last 24 Hr 98.3 F-101.4 F 76-90 18-20 134-168/59-86 GENERAL: AAOx3, mild distress HEAD: NC/AT EYES:PERRLA, EOMI, sclera anicteric, conjunctiva clear. No lid lag. EARS, NOSE, THROAT: Ears normal, nares patent, oropharynx clear without exudates. Moist mucous membranes. NECK: Normal range of motion, supple without lymphadenopathy, JVD, or masses. LUNGS:CTAB, No wheezes, and no crackles. No accessory muscle use. HEART:RRR, normal S1 and S2 without murmur, rub or gallop. ABDOMEN: Soft, NT/ND, BS(+) no guarding, no rebound, no masses. No hepatomegaly or splenomegaly. LOWER EXTREMITIES: 2+ pulses, warm, well-perfused. mild bilat.calf tenderness. No peripheral edema. Plantar Left foot ulcer on hallux IPJ with no signs of infection .Right [id number] and 5th metatarsal head ulcer and 3cm incision or dorsal aspect of foot packed . NEUROLOGICAL: Cranial nerves II-XII intact. Normal speech. gait not observed Laboratory Results - last 24 hr 07/01/16 07/02/16 07/02/16 21:29 05:43 06:30 WBC 15.4 H RBC 2.90 L Hgb 8.4 L Hct 25.4 L MCV 87.5 MCHC 32.9 RDW 15.0 Plt Count 263 MPV 7.8 Neutrophils % 68.9 Lymphocytes % 14.0 Monocytes % 14.7 H Eosinophils % 1.8 Basophils % 0.6 Sodium Potassium Chloride Carbon Dioxide Anion Gap BUN Creatinine Creat Clearance w eGFR POC Glucometer 207 127 Random Glucose Calcium Total Bilirubin AST ALT Alkaline Phosphatase Total Protein Albumin Random Vancomycin 07/02/16 07/02/16 06:30 17:20 WBC RBC Hgb Hct MCV MCHC RDW Plt Count MPV Neutrophils % Lymphocytes % Monocytes % Eosinophils % Basophils % Sodium 136 Potassium 4.4 Chloride 92 L Carbon Dioxide 29 Anion Gap 15 BUN 43 H D Creatinine 10.4 H* D Creat Clearance w eGFR 5.20 POC Glucometer 135 Random Glucose 125 H Calcium 8.2 L Total Bilirubin 0.6 AST 26 D ALT 39 Alkaline Phosphatase 118 H Total Protein 6.2 L Albumin 2.2 L Random Vancomycin 22.767 Active Medications Generic Name Dose Route Start Last Admin Trade Name Freq PRN Reason Stop Dose Admin Acetaminophen 650 mg 06/29/16 14:20 07/01/16 22:28 Tylenol - PO 650 mg Q4H PRN Administration FEVER OR PAIN Calcium Acetate 667 mg 06/29/16 17:30 07/02/16 17:03 Phoslo - PO Not Given TIDCM MONIK Epoetin Alexander 20,000 units 07/03/16 06:00 Epogen - IVPUSH 07/03/16 06:01 ONCE ONE Heparin Sodium (Porcine) 5,000 unit 06/29/16 22:00 07/02/16 09:54 Heparin - SQ Not Given BID MONIK Piperacillin Sod/Tazobactam Sod 50 mls @ 100 mls/hr 06/29/16 18:00 07/02/16 17: 11 Zosyn 2.25gm Ivpb (Pre-Docked) IVPB 100 mls/hr Q8H-IV MONIK Administration Protocol Vancomycin HCl 1,000 mg/ 250 mls @ 250 mls/hr 07/03/16 09:00 Dextrose IVPB 07/03/16 09:59 ONCE ONE Protocol Insulin Aspart 1 vial 06/29/16 16:30 07/02/16 17:21 Novolog Vial Sliding Scale - SQ Not Given BIDAC [facility] Protocol Insulin Detemir 6 units 06/29/16 22:00 07/01/16 21:31 Levemir Vial SQ 6 units HS MONIK Administration Minoxidil 10 mg 06/30/16 10:00 07/02/16 10:02 Loniten - PO 10 mg DAILY MONIK Administration Mupirocin 1 applic 06/29/16 22:00 07/02/16 09:56 Bactroban 2% Ointment - TP Not Given BID MONIK Torsemide 20 mg 06/30/16 06:00 07/02/16 14:10 Demadex - PO Not Given BIDLASIX [facility] IMAGING: * MRI/LOWER EXTREMITY MRI W/O CONTR MRI of the right foot. Clinical information : Cellulitis. Rule out osteomyelitis. Sagittal coronal and axial T1 and T2- weighted images of the right foot were obtained. There is extensive soft tissue swelling of the foot and is related to cellulitis. No soft tissue abscess is identified. There is edema of the bone marrow of the head of the fourth metatarsal suspicious for osteomyelitis. There are no other bony lesions. There is no disruption of the flexor or extensor tendons. Impression: Extensive cellulitis of the foot with osteomyelitis of the head of the fourth metatarsal. There is no soft tissue abscess. Reported By: Sunil Garza MD 06/28/16 1426 ASSESSMENT/PLAN: 55 yo M with significant PMHx. of IDDM, ESRD,HTN and chronic foot ulcers admitted to inpatient service for sepsis secondary to foot ulcer infection and osteomyelitis. Problem List - Problems (1) Sepsis Assessment/Plan: * Continues to have low grade temp. and WNC trending down * Osteomyelitis of foot. Will need extended period of IV ABx. * Continue Vanco/Zosyn for presumptive MRSA from Intraoperative specimen. * Bone biopsy cultures pending. * oxycodone prn for pain (2) Wound infection Assessment/Plan: * Continue Vanco/Zosyn * Dr. Almanzar will take to OR this afternoon * POD#3 S/P L foot excisional debridement of ulcer x 2. R foot debridement and lavage. R 4th metatarsal resection with bone biopsy * Daily wound care. (3) Diabetes mellitus with nephropathy Assessment/Plan: * Renal/ADA diet * ISS AC * BGM ACHS * Levemir 6 Units HS * NPO after breakfast tomorrow. (4) ESRD (end stage renal disease) Assessment/Plan: * Dialyzed today * Renal diet * avoid nephrotoxins. * repeat AM labs. (5) HTN (hypertension) Assessment/Plan: * Minoxidil 10mg PO AM not given today because of HD * Hold for SBP <90 * followed by Dr. Dueñas in community (6) DVT prophylaxis Assessment/Plan: * Heparin 5000 units BID Visit type - Emergency Visit Emergency Visit: Yes ED Registration Date: 06/27/16 Care time: The patient presented to the Emergency Department on the above date and was hospitalized for further evaluation of their emergent condition. - New Patient This patient is new to me today: No - Critical Care Critical Care patient: No - Discharge Referral Referred to [facility] Med P.C.: No
--- NOTE | 2016-07-02 18:43 | PN ---
Teaching Attending Note Name of Resident: Steven Constantino ATTENDING PHYSICIAN STATEMENT I saw and evaluated the patient. I reviewed the resident's note and discussed the case with the resident. I agree with the resident's findings and plan as documented. SUBJECTIVE: no pain or SOB . OBJECTIVE: NAD Cv : RRR Lungs : CTAB ext: L foot with ulcer on 1st MTP joint and 4th MTP. R foot with a surgical wound on dorsum at level of 4th metatarsal head, with ulcer on sole at same level ASSESSMENT AND PLAN: 55 y/o man with h/o HTN, ESRD adn IDDm who is being treated for sepsis from infected wounds on feet and OM of R 4th metatarsal head . 1- Sepsis due to DFI and OM 4th Metatarsal head. s/p debridment and 4th metatarsal head resection and wash out . POD 3 -cont to have fever and leukocytosis - cont vanco and zosyn - vanco level 23 today . will recheck tomorrow . -D/W Jenelle . Debridment cancelled today due to OR unavailability 2- HTN cont minoxidil . 3- ESRD: cont HD TTS 4- Dm : cont levemir and SSi dispo HLOC
[2016-07-02] MEDS: INSULIN DETEMIR 100 UNITS/ML MDV SQ SCH (21:42)
[2016-07-02] MEDS: ACETAMINOPHEN 325 MG TABLET (FP) PO PRN (21:47)
[2016-07-03] MEDS: PIPERACILLIN/TAZOB 2.25 GM 50 ML IVPB SCH ×3 (01:16→17:11)
[2016-07-03] MEDS: TORSEMIDE 20 MG TABLET (FP) PO SCH (05:43)
[2016-07-03] MEDS: INSULIN SLIDING SCALE (NOVOLOG) 1 VIAL SQ SCH ×2 (06:12→17:11)
[2016-07-03] MEDS ORDERED: EPOETIN ALFA 20,000 UNIT/1 ML VIAL IVPUSH ONE (08:15)
[2016-07-03] MEDS ORDERED: VANCOMYCIN 1 GRAM (PRE-DOCKED) 250 ML IVPB ONE (08:15)
[2016-07-03 08:30] LABS: BASOPHIL 0.5 % (0-2.0); EOSINOPHIL 2.5 % (0-4.5); MCHC 33.2 g/dl (32.0-35.9); MEAN CELL VOLUME 87.4 fl (80-96); MEAN PLT VOLUME 7.9 fl (7.5-11.1); NEUTROPHILS 70.5 % (42.8-82.8); PLATELET COUNT 304 K/MM3 (134-434); RDW 15.4 % (11.9-15.9); WHITE BLOOD COUNT 16.5 K/mm3 (4.0-10.0)
[2016-07-03 08:56] LABS: ANION GAP 16 (8-16); CALCIUM 8.2 mg/dL (8.5-10.1); CO2 28 mmol/L (21-32); COCKROFT - GAULT 8.09; GLUCOSE,RANDOM 123 mg/dL (74-106)
[2016-07-03 09:42] LABS: CREATININE 13.2 mg/dL (0.7-1.3)
--- NOTE | 2016-07-03 09:52 | PN ---
Progress Note (short form) - Note Progress Note: Subjective: had fever last night , has no abd pain, no BM today. has no pain in feet. Objective: Vital Signs: Last Vital Signs Temp Pulse Resp BP Pulse Ox 98.3 F 75 18 186/83 94 L 07/03/16 07:05 07/03/16 07:40 07/03/16 07:40 07/03/16 07:40 06/29/16 21:00 Laboratory Results - last 24 hr 07/02/16 07/02/16 07/03/16 17:20 21:41 05:45 WBC RBC Hgb Hct MCV MCHC RDW Plt Count MPV Neutrophils % Lymphocytes % Monocytes % Eosinophils % Basophils % Sodium Potassium Chloride Carbon Dioxide Anion Gap BUN Creatinine POC Glucometer 135 225 129 Random Glucose Calcium Random Vancomycin 07/03/16 07/03/16 07/03/16 07:10 07:10 07:10 WBC 16.5 H RBC 2.96 L Hgb 8.6 L Hct 25.8 L MCV 87.4 MCHC 33.2 RDW 15.4 Plt Count 304 MPV 7.9 Neutrophils % 70.5 Lymphocytes % 12.3 Monocytes % 14.2 H Eosinophils % 2.5 Basophils % 0.5 Sodium 135 L Potassium 4.6 Chloride 91 L Carbon Dioxide 28 Anion Gap 16 BUN 60 H D Creatinine 13.2 H* D POC Glucometer Random Glucose 123 H Calcium 8.2 L Random Vancomycin 18.336 Physical Exam: NAD Cv: RRR Lungs : CTAB ext: trace edema on legs. feet wounds were not examined today ASSESSMENT AND PLAN: 55 y/o man with h/o HTN, ESRD adn IDDm who is being treated for sepsis from infected wounds on feet and OM of R 4th metatarsal head . 1- Sepsis due to DFI and OM 4th Metatarsal head. s/p debridment and 4th metatarsal head resection and wash out . POD 3 - cont to have fever and leukocytosis - cont vanco, will dose today after HD - cont zosyn - for further debridment today 2- HTN cont minoxidil . 3- ESRD: cont HD TTS currently in HD 4- IDDM : cont levemir and SSi dispo HLOC Visit type - Emergency Visit Emergency Visit: Yes ED Registration Date: 06/27/16 Care time: The patient presented to the Emergency Department on the above date and was hospitalized for further evaluation of their emergent condition. - New Patient This patient is new to me today: No - Critical Care Critical Care patient: No
[2016-07-03] MEDS: CALCIUM ACETATE 667 MG CAPSULE (FP) PO SCH ×3 (11:12→17:11)
[2016-07-03] MEDS: MUPIROCIN 2% TOPICAL OINTMENT 22 GM TUBE TP SCH ×2 (11:12→21:21)
[2016-07-03] MEDS: HEPARIN NA (PORCINE) 5,000 UNITS/ML 1ML VIAL SQ SCH ×2 (11:12→21:22)
[2016-07-03] MEDS: MINOXIDIL 10 MG TABLET PO SCH (11:14)
--- NOTE | 2016-07-03 11:32 | PN ---
Progress Note, Physician Chief Complaint: The patient seen on dialysis. Scheduled for foot surgery later today. Both the feet are bandaged. The patient says that the right foot feels heavy. - Current Medication List Current Medications: Active Medications Acetaminophen (Tylenol -) 650 mg PO Q4H PRN PRN Reason: FEVER OR PAIN Last Admin: 07/02/16 21:47 Dose: 650 mg Calcium Acetate (Phoslo -) 667 mg PO TIDCM [facility] Last Admin: 07/02/16 17:03 Dose: Not Given Heparin Sodium (Porcine) (Heparin -) 5,000 unit SQ BID [facility] Last Admin: 07/02/16 21:38 Dose: 5,000 unit Piperacillin Sod/Tazobactam Sod (Zosyn 2.25gm Ivpb (Pre-Docked)) 50 mls @ 100 mls/hr IVPB Q8H-IV MONIK PRN Reason: Protocol Last Admin: 07/03/16 01:16 Dose: 100 mls/hr Insulin Aspart (Novolog Vial Sliding Scale -) 1 vial SQ BIDAC [facility] PRN Reason: Protocol Last Admin: 07/03/16 06:12 Dose: Not Given Insulin Detemir (Levemir Vial) 6 units SQ HS [facility] Last Admin: 07/02/16 21:42 Dose: 6 units Minoxidil (Loniten -) 10 mg PO DAILY [facility] Last Admin: 07/02/16 10:02 Dose: 10 mg Mupirocin (Bactroban 2% Ointment -) 1 applic TP BID [facility] Last Admin: 07/02/16 21:44 Dose: Not Given Torsemide (Demadex -) 20 mg PO BIDLASIX [facility] Last Admin: 07/03/16 05:43 Dose: Not Given - Objective Vital Signs: Vital Signs Temperature 98.3 F 07/03/16 07:05 Pulse Rate 73 07/03/16 10:50 Respiratory Rate 18 07/03/16 10:50 Blood Pressure 166/71 07/03/16 10:50 O2 Sat by Pulse Oximetry (%) 94 L 06/29/16 21:00 Constitutional: Yes: Well Nourished, Anxious Eyes: Yes: Conjunctiva Clear HENT: Yes: Atraumatic, Normocephalic Neck: Yes: Trachea Midline Cardiovascular: Yes: Regular Rate and Rhythm, S1, S2 Respiratory: Yes: CTA Bilaterally Gastrointestinal: Yes: Normal Bowel Sounds Extremities: Yes: Other (bilateral plantar wounds.) Labs: CBC, BMP 07/03/16 07:10 07/03/16 07:10 INR, PTT INR 1.46 (0.82-1.09) H 06/27/16 20:25 Problem List - Problems (1) Sepsis Code(s): A41.9 - SEPSIS, UNSPECIFIED ORGANISM Qualifiers: Sepsis type: sepsis due to unspecified organism Qualified Code(s): A41.9 - Sepsis, unspecified organism (2) Wound infection Code(s): T14.8 - OTHER INJURY OF UNSPECIFIED BODY REGION L08.9 - LOCAL INFECTION OF THE SKIN AND SUBCUTANEOUS TISSUE, UNSP (3) Anemia in ESRD (end-stage renal disease) Code(s): N18.6 - END STAGE RENAL DISEASE D63.1 - ANEMIA IN CHRONIC KIDNEY DISEASE (4) Chronic diabetic ulcer of left foot determined by examination Code(s): E11.621 - TYPE 2 DIABETES MELLITUS WITH FOOT ULCER L97.529 - NON-PRESSURE CHRONIC ULCER OTH PRT LEFT FOOT W UNSP SEVERITY (5) Chronic ulcer of left foot Code(s): L97.529 - NON-PRESSURE CHRONIC ULCER OTH PRT LEFT FOOT W UNSP SEVERITY Qualifiers: Non-pressure ulcer stage: unspecified non-pressure ulcer stage Qualified Code(s): L97.529 - Non-pressure chronic ulcer of other part of left foot with unspecified severity (6) ESRD needing dialysis Code(s): N18.6 - END STAGE RENAL DISEASE (7) HTN (hypertension) Code(s): I10 - ESSENTIAL (PRIMARY) HYPERTENSION Qualifiers: Hypertension type: essential hypertension Qualified Code(s): I10 - Essential (primary) hypertension (8) Type 2 diabetes mellitus with foot ulcer Code(s): E11.621 - TYPE 2 DIABETES MELLITUS WITH FOOT ULCER L97.509 - NON-PRESSURE CHRONIC ULCER OTH PRT UNSP FOOT W UNSP SEVERITY Qualifiers: (9) Wound, open, foot Code(s): S91.309A - UNSPECIFIED OPEN WOUND, UNSPECIFIED FOOT, INITIAL ENCOUNTER Assessment/Plan 55 y/o patient with ESRD, has bilateral plantar ulcers and right foot osteomyelitis. IV antibiotics infusing. For foot surgery later today. Has profound anemia. Epogen post dialysis. Sarah Marks MD
[2016-07-03] MEDS ORDERED: LIDOCAINE HCL 2% (20ML MULTI-DOSE VIAL) NR ONE (12:04)
[2016-07-03 12:27] LABS: CREATININE 6.2 mg/dL (0.7-1.3)
--- NOTE | 2016-07-03 12:55 | PN ---
Progress Note (short form) - Note Progress Note: Podiatry: Risks, benefits, alternatives to surgery discussed at length with patient. He is in agreement for planned procedure. Plan for debridement/lavage, possible 4th/5th toe amputations. Mel Almanzar DPM
[2016-07-03] MEDS ORDERED: PROPOFOL 20 ML ONE (13:01)
[2016-07-03] MEDS ORDERED: MIDAZOLAM HCL 2 MG/2 ML SINGLE DOSE VIAL ONE ×4 (13:01→13:49)
[2016-07-03] MEDS ORDERED: LIDOCAINE HCL 2% (50ML VIAL) INF ONE (13:12)
[2016-07-03 13:51] LABS: ALBUMIN 2.2 g/dl (3.4-5.0); ALK PHOS 112 U/L (45-117); BILIRUBIN,TOTAL 0.5 mg/dL (0.2-1.0); PHOSPHOROUS 6.6 mg/dL (2.5-4.9); SGOT/AST 24 U/L (15-37); SGPT/ALT 36 U/L (12-78); TOT PROT 6.5 g/dl (6.4-8.2)
--- NOTE | 2016-07-03 14:14 | OP ---
Operative Note - Note: Operative Date: 07/03/16 Pre-Operative Diagnosis: R foot severe diabetic foot infection with osteomyelitis Operation: R foot debridement/lavage with 4th/5th toe amputation and partial ray resections Findings: Extensive liquefactive tissue with thrombosed vessels 4th interspace. Absent capillary filling time 4th/5th/toes. Necrotic periwound tissue. Intra-osseus pus 5th metatarsal head Post-Operative Diagnosis: Same as Pre-op Surgeon: Vazquez Almanzar Anesthesia: Local, MAC Specimens Removed: 4th/5th toes and metatarsal Estimated Blood Loss (mls): 20 Instrument used (Debridements only): #15 blade scalpel Operative Report Dictated: Yes
[2016-07-03] MEDS ORDERED: oxyCODONE HCL 5 MG TABLET PO PRN (14:15)
[2016-07-03] MEDS ORDERED: ONDANSETRON 4 MG/2 ML VIAL IVPUSH PRN (14:18)
--- NOTE | 2016-07-03 16:10 | OP ---
DATE OF OPERATION: 07/03/2016 PROCEDURE: 1. Right foot debridement and lavage with 4th and 5th toe amputation 2. Partial Ray resections 4th and 5th metatarsals PREOPERATIVE DIAGNOSIS: Severe diabetic foot infection with osteomyelitis, right foot POSTOPERATIVE DIAGNOSIS: Severe diabetic foot infection with osteomyelitis, right foot SURGEON: Vazquez Almanzar DPM TECHNICAL SERVICES COORDINATOR: None ANESTHESIA: Local with IV sedation HEMOSTASIS: None ESTIMATED BLOOD LOSS: 20 mL PATHOLOGY: Bone and soft tissue right foot, specifically 4th and 5th toes COMPLICATIONS: None DESCRIPTION OF PROCEDURE: Patient was brought to the operating room and placed on the operating table in a supine position. Following the induction of IV sedation, local anesthesia was achieved utilizing 20 mL of 2% lidocaine plain. The right foot was then scrubbed, prepped and draped in the usual aseptic fashion. I elected to not use hemostasis during the course of this procedure. Attention was directed to the right foot where a sub fourth metatarsal ulcer tracking plantar to dorsal with purulent material was visualized and appreciated. In addition, there were necrotic changes at the periphery of the tissues surrounding the original surgical site. I began by continuing the open surgical site circumferentially about the 4th and 5th toes. The ulcer was excised sharply using a sterile No. 15 blade. Incision was deepened to the level of the subcutaneous tissue and bone, taking care to retract vital neural and vascular structures. Of note, there was minimal bleeding at the infection site due to thrombosis of microvasculature. There were extensive thrombosed vessels and liquefactive tissue, which was indicative of a severe infection. Once the tissues were subsequently resected, I began dissection of the 4th and 5th metatarsal stumps. Upon incision of the capsule of the 5th metatarsal, there was intraosseous pus noted. The sagittal saw was used to resect the 5th metatarsal head as well as the remnant of the 4th metatarsal. This was sent to microbiology and pathology for analysis. The 4th and 5th toes, in addition, were sent for analysis to pathology once amputated. The surgical site was copiously irrigated with sterile saline. Tension sutures were placed proximally and distally, and the wound was packed with 1/4-inch iodoform packing. Following the conclusion of the procedure, the surgical site was covered with Xeroform. and a sterile compressive dressing was applied to the right foot, consisting of sterile gauze, clean Kerlix and an TASIA wrap. The patient tolerated the procedure and anesthesia well without complications. He was transferred from the operating room to the recovery unit with vital signs stable and neuro vasculature intact to the right foot. KARI DUKE/[id number] cc: Podiatry. MTDD
[2016-07-03] MEDS: oxyCODONE HCL 5 MG TABLET PO PRN (16:30)
[2016-07-03] MEDS: ACETAMINOPHEN 325 MG TABLET (FP) PO PRN (16:31)
[2016-07-03] MEDS ORDERED: PT OWN MED DRAWER 7, Y5N ONE (21:17)
[2016-07-03] MEDS: INSULIN DETEMIR 100 UNITS/ML MDV SQ SCH (21:22)
[2016-07-04] MEDS: oxyCODONE HCL 5 MG TABLET PO PRN ×3 (00:48→19:04)
[2016-07-04] MEDS: PIPERACILLIN/TAZOB 2.25 GM 50 ML IVPB SCH ×3 (01:03→17:06)
[2016-07-04] MEDS: INSULIN SLIDING SCALE (NOVOLOG) 1 VIAL SQ SCH ×2 (06:04→16:33)
[2016-07-04] MEDS: TORSEMIDE 20 MG TABLET (FP) PO SCH ×2 (06:21→13:27)
[2016-07-04 07:58] LABS: BASOPHIL 0.6 % (0-2.0); EOSINOPHIL 1.9 % (0-4.5); MCH 28.8 pg (25.7-33.7); MCHC 32.7 g/dl (32.0-35.9); MEAN CELL VOLUME 88.3 fl (80-96); NEUTROPHILS 70.9 % (42.8-82.8); PLATELET COUNT 311 K/MM3 (134-434); RDW 15.1 % (11.9-15.9); WHITE BLOOD COUNT 16.2 K/mm3 (4.0-10.0)
[2016-07-04] MEDS: CALCIUM ACETATE 667 MG CAPSULE (FP) PO SCH ×3 (08:13→16:50)
[2016-07-04 08:28] LABS: CALCIUM 8.1 mg/dL (8.5-10.1)
[2016-07-04 08:40] LABS: COCKROFT - GAULT 10.26
[2016-07-04 09:05] LABS: CREATININE 10.4 mg/dL (0.7-1.3)
[2016-07-04] MEDS ORDERED: PT OWN MED DRAWER 7, Y5N ONE (09:07)
[2016-07-04] MEDS: HEPARIN NA (PORCINE) 5,000 UNITS/ML 1ML VIAL SQ SCH ×2 (09:13→22:48)
[2016-07-04] MEDS: MUPIROCIN 2% TOPICAL OINTMENT 22 GM TUBE TP SCH ×2 (09:14→22:49)
[2016-07-04] MEDS: MINOXIDIL 10 MG TABLET PO SCH (09:15)
--- NOTE | 2016-07-04 10:32 | PN ---
Progress Note (short form) - Note Progress Note: Podiatry: Patient seen and evaluated at bedside, NAD. Pain improved to right foot, he denies F/V/N/C/SOB/Cp. He is s/p R foot debridement and lavage with 4th/5th toe amputation and partial 4th/5th ray resection POD # 1. S/p L hallux and L sub-5th metatarsal debridement of ulcer, healing well. Fevers have now resolved , currently afebrile. ABDIAS: R foot: dressing C/D/I with no active bleeding. There is a large post-surgical wound along the 4th and 5th rays with retention sutures placed proximally and distally. The central aspect of the wound is packed open. There is underlying fibrogranular base with viable skin margins. There is soft tissue coverage over the fourth and fifth metatarsal stumps. There is instantaneous capillary fill time to the 3rd, 2nd and first toes. There is no purulent drainage expressed from the wound. There is no soft tissue crepitus. Surrounding erythema improved. There is no streaking cellulitis, no signs of acute infection. L foot: plantar hallux IPJ ulcer with strong granular base, no deep probing, no purulence, no fluctuance, no soft tissue crepitus, no signs of active infection. Sub-5th metatarsal head ulcer with granular base, no probing to bone , no purulence, no fluctuance, no ascending cellulitis, no signs of active infection. WBC: 16.2 OR Bone Cx: MRSA, Strep Salivarius OR Soft tissue Cx: MRSA, strep salivarius, diphtheroid/corynebacterium Blood Cx: no growth x 72 hrs Imp: 55 year old IDDM M s/p R 4th/5th toe amputation and partial 4th/5th ray resection for severe diabetic foot infection with osteomyelitis, POD # 1 1. Post-operative dressing removed, irrigation with sterile saline and a saline [id number] dressing applied to the right foot and a sterile dressing applied. 2. Non-weightbearing to the right foot. 3. Continue IV abx per ID 4. Thus far leukocytosis has not resolved, however fevers have resolved. Will continue to monitor clinical improvement in infection and resolution of leukocytosis. 5. Discussed with patient sub-acute rehab placement for non-weightbearing status. Patient lives in 3rd floor walkup and would benefit from PAZ placement. Will discuss with case management. 6. Additionally, patient would benefit from HBO Therapy to assist in granulation and perfusion of remaining tissues for limb salvage. 7. Discussed with patient at length about compliance to wound healing protocol. He has a history of non-compliance and I discussed this may compromise limb salvage. 8. Will follow closely. Mel Almanzar DPM
--- NOTE | 2016-07-04 10:58 | PN ---
Progress Note (short form) - Note Progress Note: Post Anesthesia note. POD#1 S/P Incision and debridement of right foot. Pat seen and examined. VSS.No apparent post anesthesia complications. Signing off.
--- NOTE | 2016-07-04 15:32 | PN ---
Progress Note (short form) - Note Progress Note: Subjective: no pain , no fever . has no SOB . Objective: Vital Signs: Last Vital Signs Temp Pulse Resp BP Pulse Ox 98.7 F 82 16 166/98 95 07/04/16 13:59 07/04/16 13:59 07/04/16 13:59 07/04/16 13:59 07/04/16 09:00 Laboratory Results - last 24 hr 07/03/16 07/04/16 07/04/16 16:47 05:52 07:00 WBC 16.2 H RBC 3.05 L Hgb 8.8 L Hct 26.9 L MCV 88.3 MCHC 32.7 RDW 15.1 Plt Count 311 MPV 8.0 Neutrophils % 70.9 Lymphocytes % 14.4 Monocytes % 12.2 H Eosinophils % 1.9 Basophils % 0.6 Sodium Potassium Chloride Carbon Dioxide Anion Gap BUN Creatinine POC Glucometer 125 148 Random Glucose Calcium 07/04/16 07:00 WBC RBC Hgb Hct MCV MCHC RDW Plt Count MPV Neutrophils % Lymphocytes % Monocytes % Eosinophils % Basophils % Sodium 136 Potassium 4.6 Chloride 93 L Carbon Dioxide 27 Anion Gap 16 BUN 36 H D Creatinine 10.4 H* D POC Glucometer Random Glucose 135 H Calcium 8.1 L Physical Exam: NAD Cv: RRR Lungs : CTAB ext: trace edema on legs. L foot with ulcers on sole ( 1st MTP , and 5th Metatarsal head ) . no purulent drainage. R foot dressing was just changed by dr. Almanzar ASSESSMENT AND PLAN: 55 y/o man with h/o HTN, ESRD adn IDDm who is being treated for sepsis from infected wounds on feet and OM of R 4th metatarsal head . 1- Sepsis due to DFI and OM 4th Metatarsal head. s/p debridment and 4th metatarsal head resection and wash out . POD 4. 4th , 5th toe amputation - No fevr . stable leukocytosis - cont vanco - cont zosyn -non weight baring x 1.5 months 2- HTN cont minoxidil . 3- ESRD: cont HD TTS 4- IDDM : cont levemir and SSi dispo : HLOC HE needs to think about rehab. will d/w ID duration and choice of Abx . Visit type - Emergency Visit Emergency Visit: Yes ED Registration Date: 06/27/16 Care time: The patient presented to the Emergency Department on the above date and was hospitalized for further evaluation of their emergent condition. - New Patient This patient is new to me today: No - Critical Care Critical Care patient: No
--- NOTE | 2016-07-04 17:22 | PN ---
Progress Note, Physician Chief Complaint: Patient in bed. S/p Toe amputation. No pains. No fever History of Present Illness: BP in acceptable range. Both the feet are bandaged. - Current Medication List Current Medications: Active Medications Acetaminophen (Tylenol -) 650 mg PO Q4H PRN PRN Reason: FEVER OR PAIN Last Admin: 07/03/16 16:31 Dose: 650 mg Calcium Acetate (Phoslo -) 667 mg PO TIDCM [facility] Last Admin: 07/04/16 16:50 Dose: 667 mg Heparin Sodium (Porcine) (Heparin -) 5,000 unit SQ BID [facility] Last Admin: 07/04/16 09:13 Dose: 5,000 unit Piperacillin Sod/Tazobactam Sod (Zosyn 2.25gm Ivpb (Pre-Docked)) 50 mls @ 100 mls/hr IVPB Q8H-IV [facility] PRN Reason: Protocol Last Admin: 07/04/16 17:06 Dose: 100 mls/hr Insulin Aspart (Novolog Vial Sliding Scale -) 1 vial SQ BIDAC [facility] PRN Reason: Protocol Last Admin: 07/04/16 16:33 Dose: Not Given Insulin Detemir (Levemir Vial) 6 units SQ HS [facility] Last Admin: 07/03/16 21:22 Dose: 6 units Minoxidil (Loniten -) 10 mg PO DAILY [facility] Last Admin: 07/04/16 09:15 Dose: 10 mg Mupirocin (Bactroban 2% Ointment -) 1 applic TP BID [facility] Last Admin: 07/04/16 09:14 Dose: 1 applic Oxycodone HCl (Roxicodone -) 5 mg PO Q4H PRN PRN Reason: PAIN LEVEL 1-5 Torsemide (Demadex -) 20 mg PO BIDLASIX [facility] Last Admin: 07/04/16 13:27 Dose: 20 mg - Objective Vital Signs: Vital Signs Temperature 98.7 F 07/04/16 13:59 Pulse Rate 82 07/04/16 13:59 Respiratory Rate 16 07/04/16 13:59 Blood Pressure 166/98 07/04/16 13:59 O2 Sat by Pulse Oximetry (%) 95 07/04/16 09:00 Constitutional: Yes: No Distress, Calm HENT: Yes: Normocephalic Neck: Yes: Trachea Midline Cardiovascular: Yes: S1, S2 Respiratory: Yes: CTA Bilaterally Gastrointestinal: Yes: Normal Bowel Sounds, Soft Edema: Yes Edema: LLE: Trace, RLE: Trace Wound/Incision: Yes: Dressing Dry and Intact Neurological: Yes: Alert, Oriented Labs: CBC, BMP 07/04/16 07:00 07/04/16 07:00 INR, PTT INR 1.46 (0.82-1.09) H 06/27/16 20:25 Problem List - Problems (1) Sepsis Code(s): A41.9 - SEPSIS, UNSPECIFIED ORGANISM Qualifiers: Sepsis type: sepsis due to unspecified organism Qualified Code(s): A41.9 - Sepsis, unspecified organism (2) Wound infection Code(s): T14.8 - OTHER INJURY OF UNSPECIFIED BODY REGION L08.9 - LOCAL INFECTION OF THE SKIN AND SUBCUTANEOUS TISSUE, UNSP (3) Anemia in ESRD (end-stage renal disease) Code(s): N18.6 - END STAGE RENAL DISEASE D63.1 - ANEMIA IN CHRONIC KIDNEY DISEASE (4) Chronic diabetic ulcer of left foot determined by examination Code(s): E11.621 - TYPE 2 DIABETES MELLITUS WITH FOOT ULCER L97.529 - NON-PRESSURE CHRONIC ULCER OTH PRT LEFT FOOT W UNSP SEVERITY (5) Chronic ulcer of left foot Code(s): L97.529 - NON-PRESSURE CHRONIC ULCER OTH PRT LEFT FOOT W UNSP SEVERITY Qualifiers: Non-pressure ulcer stage: unspecified non-pressure ulcer stage Qualified Code(s): L97.529 - Non-pressure chronic ulcer of other part of left foot with unspecified severity (6) ESRD needing dialysis Code(s): N18.6 - END STAGE RENAL DISEASE (7) HTN (hypertension) Code(s): I10 - ESSENTIAL (PRIMARY) HYPERTENSION Qualifiers: Hypertension type: essential hypertension Qualified Code(s): I10 - Essential (primary) hypertension (8) Type 2 diabetes mellitus with foot ulcer Code(s): E11.621 - TYPE 2 DIABETES MELLITUS WITH FOOT ULCER L97.509 - NON-PRESSURE CHRONIC ULCER OTH PRT UNSP FOOT W UNSP SEVERITY Qualifiers: (9) Wound, open, foot Code(s): S91.309A - UNSPECIFIED OPEN WOUND, UNSPECIFIED FOOT, INITIAL ENCOUNTER Assessment/Plan 55 y/o patient with ESRD, has bilateral plantar ulcers and right foot osteomyelitis. IV antibiotics infusing. S/P foot surgery. Feet bandaged. Last Hgb 8.8 Next dialysis on Tuesday. Sarah Marks MD
[2016-07-04] MEDS: ACETAMINOPHEN 325 MG TABLET (FP) PO PRN (19:06)
[2016-07-04] MEDS: INSULIN DETEMIR 100 UNITS/ML MDV SQ SCH (22:49)
[2016-07-05] MEDS: PIPERACILLIN/TAZOB 2.25 GM 50 ML IVPB SCH ×3 (02:26→17:27)
[2016-07-05] MEDS: TORSEMIDE 20 MG TABLET (FP) PO SCH ×2 (06:03→13:37)
[2016-07-05] MEDS: INSULIN SLIDING SCALE (NOVOLOG) 1 VIAL SQ SCH ×2 (06:04→17:26)
[2016-07-05 07:51] LABS: BASOPHIL 0.5 % (0-2.0); EOSINOPHIL 2.3 % (0-4.5); MCH 28.7 pg (25.7-33.7); MCHC 32.4 g/dl (32.0-35.9); MEAN CELL VOLUME 88.6 fl (80-96); MEAN PLT VOLUME 7.7 fl (7.5-11.1); NEUTROPHILS 73.2 % (42.8-82.8); PLATELET COUNT 289 K/MM3 (134-434); RDW 15.6 % (11.9-15.9); WHITE BLOOD COUNT 16.4 K/mm3 (4.0-10.0)
[2016-07-05] MEDS: CALCIUM ACETATE 667 MG CAPSULE (FP) PO SCH ×3 (08:17→17:26)
[2016-07-05 08:21] LABS: CALCIUM 8.4 mg/dL (8.5-10.1)
[2016-07-05 08:34] LABS: COCKROFT - GAULT 8.02
[2016-07-05 09:14] LABS: CREATININE 13.3 mg/dL (0.7-1.3)
--- NOTE | 2016-07-05 09:22 | PN ---
Progress Note (short form) - Note Progress Note: Podiatry: Seen and evaluated at bedside, NAD. Does have some phantom pain to the 5th toe amputation site, however notes pain is quite improved since admission. Denies F /V/N/C/SOB/CP. Currently with low grade temp 99 F, however high grade temp has resolved. S/p R foot debridement with 4th/5th toe amputation and partial 4th/ 5th ray resection for severe diabetic foot infection, POD # 2. Currently VSS. ABDIAS: R foot: dressing C/D/I, no active bleeding, no strikethrough. There is a large post-surgical wound along 4th/5th rays with fibrogranular base, sutures coapted proximally and distally, central aspect of wound packed open. The underlying wound base is fibrogranular, there is no ischemic changes to the wound and surrounding tissues. There is no purulent drainage, no fluctuance, surrounding erytema quite improved, no soft tissue crepitus, no ascending cellulitis, no signs of active infection. There is minimal tenderness on palpation of the surgical site. WBC: 16.4 OR Bone Cx: MRSA, strep salivarus Blood Cx: no growth x 96 hours ESR: 46 Imp: 55 year old IDDM M s/p R foot debridement with 4th/5th toe amputation and 4th/5th partial ray resection 1. C/w IV abx per ID 2. Saline irrigation and saline moist to dry dressing applied R foot 3. Stable leukocytosis. Will discuss this with ID. High grade fevers improved. 4. Will order wound VAC. 5. Pain control. 6. Will follow. Mel Almanzar DPM
[2016-07-05] MEDS ORDERED: PT OWN MED DRAWER 7, Y5N ONE (09:23)
[2016-07-05] MEDS: MINOXIDIL 10 MG TABLET PO SCH (09:28)
[2016-07-05] MEDS: HEPARIN NA (PORCINE) 5,000 UNITS/ML 1ML VIAL SQ SCH ×2 (09:29→21:37)
[2016-07-05] MEDS: MUPIROCIN 2% TOPICAL OINTMENT 22 GM TUBE TP SCH ×2 (09:30→21:39)
--- NOTE | 2016-07-05 13:13 | PN ---
Teaching Attending Note Name of Resident: Steven Constantino ATTENDING PHYSICIAN STATEMENT I saw and evaluated the patient. I reviewed the resident's note and discussed the case with the resident. I agree with the resident's findings and plan as documented. SUBJECTIVE: no fever or chills, has no pain in foot , NO SOB or CP OBJECTIVE: NAD Cv: RRR Lungs: CTAB Ext: . L foot with ulcers on sole ( 1st MTP , and 5th Metatarsal head ) . no purulent drainage. R foot with surgical packed wound with S/p 4th. 5th digit amputation , with ulcer on sole . no drainage ASSESSMENT AND PLAN: 55 y/o man with h/o HTN, ESRD adn IDDm who is being treated for sepsis from infected wounds on feet and OM of R 4th metatarsal head . 1- Sepsis due to DFI and OM 4th Metatarsal head. s/p debridment and 4th metatarsal head resection and wash out 06/29 . 4th , 5th toe amputation 07/03 - No fever . stable leukocytosis. - will repeat ESR - cont vanco - cont zosyn - non weight baring x 1.5 months - vanco level in am 2- HTN cont minoxidil . 3- ESRD: cont HD TTS 4- IDDM : cont levemir and SSi dispo : HLOC dispo : pt is agreeable to rehab . will have to monitor his leukocytosis before decision on dc
--- NOTE | 2016-07-05 13:58 | PN ---
Physical Exam: SUBJECTIVE: Patient seen and examined at bedside. No overnight events. No new compaints. S/P amputation of 4/5 toes. pain well controlled. Denies CP,MICHAEL,SOB, abd.pain, N/V. OBJECTIVE: Vital Signs Period Temp Pulse Resp BP Sys/Salas Pulse Ox Last 24 Hr 97.7 F-99.6 F 78-85 16-18 99-166/59-98 95 GENERAL: AAOx3, mild distress HEAD: NC/AT EYES:PERRLA, EOMI, sclera anicteric, conjunctiva clear. No lid lag. EARS, NOSE, THROAT: Ears normal, nares patent, oropharynx clear without exudates. Moist mucous membranes. NECK: Normal range of motion, supple without lymphadenopathy, JVD, or masses. LUNGS:CTAB, No wheezes, and no crackles. No accessory muscle use. HEART:RRR, normal S1 and S2 . ABDOMEN: Soft, NT/ND, BS(+) no guarding, no rebound, no masses. No hepatomegaly or splenomegaly. LOWER EXTREMITIES: 2+ pulses, warm, well-perfused. mild bilat.calf tenderness. No peripheral edema. 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 wound appears clean, no purulent drainage.tenderness to palpation. NEUROLOGICAL: Cranial nerves II-XII intact. Normal speech. gait not observed Laboratory Results - last 24 hr 07/04/16 07/05/16 07/05/16 16:32 05:49 06:30 WBC 16.4 H RBC 2.87 L Hgb 8.2 L Hct 25.4 L MCV 88.6 MCHC 32.4 RDW 15.6 Plt Count 289 MPV 7.7 Neutrophils % 73.2 Lymphocytes % 12.6 Monocytes % 11.4 H Eosinophils % 2.3 Basophils % 0.5 Sodium Potassium Chloride Carbon Dioxide Anion Gap BUN Creatinine POC Glucometer 141 99 Random Glucose Calcium 07/05/16 06:30 WBC RBC Hgb Hct MCV MCHC RDW Plt Count MPV Neutrophils % Lymphocytes % Monocytes % Eosinophils % Basophils % Sodium 135 L Potassium 5.0 Chloride 92 L Carbon Dioxide 29 Anion Gap 14 BUN 47 H D Creatinine 13.3 H* D POC Glucometer Random Glucose 88 D Calcium 8.4 L Active Medications Generic Name Dose Route Start Last Admin Trade Name Freq PRN Reason Stop Dose Admin Acetaminophen 650 mg 07/03/16 14:38 07/04/16 19:06 Tylenol - PO 650 mg Q4H PRN Administration FEVER OR PAIN Calcium Acetate 667 mg 07/03/16 17:30 07/05/16 12:29 Phoslo - PO 667 mg TIDCM [facility] Administration Heparin Sodium (Porcine) 5,000 unit 07/03/16 22:00 07/05/16 09:29 Heparin - SQ 5,000 unit BID [facility] Administration Piperacillin Sod/Tazobactam Sod 50 mls @ 100 mls/hr 07/03/16 18:00 07/05/16 09: 28 Zosyn 2.25gm Ivpb (Pre-Docked) IVPB 100 mls/hr Q8H-IV [facility] Administration Protocol Insulin Aspart 1 vial 07/03/16 16:30 07/05/16 06:04 Novolog Vial Sliding Scale - SQ Not Given BIDAC [facility] Protocol Insulin Detemir 6 units 07/03/16 22:00 07/04/16 22:49 Levemir Vial SQ 6 units HS [facility] Administration Minoxidil 10 mg 07/04/16 10:00 07/05/16 09:28 Loniten - PO 10 mg DAILY [facility] Administration Mupirocin 1 applic 07/03/16 22:00 07/05/16 09:30 Bactroban 2% Ointment - TP Not Given BID [facility] Oxycodone HCl 5 mg 07/03/16 14:38 07/04/16 19:04 Roxicodone - PO 5 mg Q4H PRN Administration PAIN LEVEL 1-5 Torsemide 20 mg 07/04/16 06:00 07/05/16 13:37 Demadex - PO 20 mg BIDLASIX [facility] Administration ASSESSMENT/PLAN: 55 yo M with significant PMHx. of IDDM, ESRD,HTN and chronic foot ulcers admitted to inpatient service for sepsis secondary to foot ulcer infection and osteomyelitis. Problem List - Problems (1) Sepsis Assessment/Plan: * WBC remains elevated. * Osteomyelitis of foot. Will need extended period of IV ABx. * Continue Vanco/Zosyn for MRSA from Intraoperative specimen. * Bone biopsy cultures show strep salivarus * oxycodone prn for pain (2) Wound infection Assessment/Plan: * Continue Vanco/Zosyn * s/p R foot debridement with 4th/5th toe amputation and 4th/5th partial ray resection * saline irrigation and moist to dry dressing. * Wound Vac * Daily wound care. (3) Diabetes mellitus with nephropathy Assessment/Plan: * Renal/ADA diet * ISS AC * BGM ACHS * Levemir 6 Units HS (4) ESRD (end stage renal disease) Assessment/Plan: * Dialyzed tomorrow * Renal diet * avoid nephrotoxins. * renal dose meds. * repeat AM labs. (5) HTN (hypertension) Assessment/Plan: * Minoxidil 10mg PO AM not given today because of HD * Hold for SBP <90 * followed by Dr. Dueñas in community (6) DVT prophylaxis Assessment/Plan: * Heparin 5000 units BID Visit type - Emergency Visit Emergency Visit: Yes ED Registration Date: 06/27/16 Care time: The patient presented to the Emergency Department on the above date and was hospitalized for further evaluation of their emergent condition. - New Patient This patient is new to me today: No - Critical Care Critical Care patient: No - Discharge Referral Referred to [facility] Med [facility].C.: No
--- NOTE | 2016-07-05 16:16 | PN ---
Progress Note, Physician Chief Complaint: Patient in bed. S/p Toe amputation. No pains. No fever. Feel comfortable. Depressed at the way things have progressed. - Current Medication List Current Medications: Active Medications Acetaminophen (Tylenol -) 650 mg PO Q4H PRN PRN Reason: FEVER OR PAIN Last Admin: 07/04/16 19:06 Dose: 650 mg Calcium Acetate (Phoslo -) 667 mg PO TIDCM [facility] Last Admin: 07/05/16 12:29 Dose: 667 mg Heparin Sodium (Porcine) (Heparin -) 5,000 unit SQ BID [facility] Last Admin: 07/05/16 09:29 Dose: 5,000 unit Piperacillin Sod/Tazobactam Sod (Zosyn 2.25gm Ivpb (Pre-Docked)) 50 mls @ 100 mls/hr IVPB Q8H-IV [facility] PRN Reason: Protocol Last Admin: 07/05/16 09:28 Dose: 100 mls/hr Insulin Aspart (Novolog Vial Sliding Scale -) 1 vial SQ BIDAC [facility] PRN Reason: Protocol Last Admin: 07/05/16 06:04 Dose: Not Given Insulin Detemir (Levemir Vial) 6 units SQ HS [facility] Last Admin: 07/04/16 22:49 Dose: 6 units Minoxidil (Loniten -) 10 mg PO DAILY [facility] Last Admin: 07/05/16 09:28 Dose: 10 mg Mupirocin (Bactroban 2% Ointment -) 1 applic TP BID [facility] Last Admin: 07/05/16 09:30 Dose: Not Given Oxycodone HCl (Roxicodone -) 5 mg PO Q4H PRN PRN Reason: PAIN LEVEL 1-5 Last Admin: 07/04/16 19:04 Dose: 5 mg Torsemide (Demadex -) 20 mg PO BIDLASIX [facility] Last Admin: 07/05/16 13:37 Dose: 20 mg - Objective Vital Signs: Vital Signs Temperature 99.2 F 07/05/16 14:00 Pulse Rate 84 07/05/16 14:00 Respiratory Rate 18 07/05/16 14:00 Blood Pressure 155/76 07/05/16 14:00 O2 Sat by Pulse Oximetry (%) 95 07/04/16 21:00 Constitutional: Yes: Well Nourished, Anxious HENT: Yes: Normocephalic Cardiovascular: Yes: Regular Rate and Rhythm, S1, S2 Respiratory: Yes: CTA Bilaterally Gastrointestinal: Yes: Normal Bowel Sounds, Soft Edema: Yes Edema: LLE: 1+, RLE: 1+ Wound/Incision: Yes: Dressing Dry and Intact Neurological: Yes: Alert, Oriented Labs: CBC, BMP 07/05/16 06:30 07/05/16 06:30 INR, PTT INR 1.46 (0.82-1.09) H 06/27/16 20:25 Problem List - Problems (1) Sepsis Code(s): A41.9 - SEPSIS, UNSPECIFIED ORGANISM Qualifiers: Sepsis type: sepsis due to unspecified organism Qualified Code(s): A41.9 - Sepsis, unspecified organism (2) Wound infection Code(s): T14.8 - OTHER INJURY OF UNSPECIFIED BODY REGION L08.9 - LOCAL INFECTION OF THE SKIN AND SUBCUTANEOUS TISSUE, UNSP (3) Anemia in ESRD (end-stage renal disease) Code(s): N18.6 - END STAGE RENAL DISEASE D63.1 - ANEMIA IN CHRONIC KIDNEY DISEASE (4) Chronic diabetic ulcer of left foot determined by examination Code(s): E11.621 - TYPE 2 DIABETES MELLITUS WITH FOOT ULCER L97.529 - NON-PRESSURE CHRONIC ULCER OTH PRT LEFT FOOT W UNSP SEVERITY (5) Chronic ulcer of left foot Code(s): L97.529 - NON-PRESSURE CHRONIC ULCER OTH PRT LEFT FOOT W UNSP SEVERITY Qualifiers: Non-pressure ulcer stage: unspecified non-pressure ulcer stage Qualified Code(s): L97.529 - Non-pressure chronic ulcer of other part of left foot with unspecified severity (6) ESRD needing dialysis Code(s): N18.6 - END STAGE RENAL DISEASE (7) HTN (hypertension) Code(s): I10 - ESSENTIAL (PRIMARY) HYPERTENSION Qualifiers: Hypertension type: essential hypertension Qualified Code(s): I10 - Essential (primary) hypertension (8) Type 2 diabetes mellitus with foot ulcer Code(s): E11.621 - TYPE 2 DIABETES MELLITUS WITH FOOT ULCER L97.509 - NON-PRESSURE CHRONIC ULCER OTH PRT UNSP FOOT W UNSP SEVERITY Qualifiers: (9) Wound, open, foot Code(s): S91.309A - UNSPECIFIED OPEN WOUND, UNSPECIFIED FOOT, INITIAL ENCOUNTER Assessment/Plan 55 y/o patient with ESRD, has bilateral plantar ulcers and right foot osteomyelitis. IV antibiotics infusing. S/P foot surgery. Toe amputation. Feet bandaged. Last Hgb 8.2 Next dialysis tomorrow. Sarah Marks MD
[2016-07-05] MEDS: oxyCODONE HCL 5 MG TABLET PO PRN (21:30)
[2016-07-05] MEDS: ACETAMINOPHEN 325 MG TABLET (FP) PO PRN (21:39)
[2016-07-05] MEDS: INSULIN DETEMIR 100 UNITS/ML MDV SQ SCH (21:44)
[2016-07-06] MEDS: PIPERACILLIN/TAZOB 2.25 GM 50 ML IVPB SCH ×3 (02:40→17:16)
[2016-07-06] MEDS: TORSEMIDE 20 MG TABLET (FP) PO SCH ×2 (06:01→18:43)
[2016-07-06] MEDS: INSULIN SLIDING SCALE (NOVOLOG) 1 VIAL SQ SCH ×2 (06:46→17:15)
[2016-07-06] MEDS: CALCIUM ACETATE 667 MG CAPSULE (FP) PO SCH ×3 (08:33→17:16)
[2016-07-06] MEDS ORDERED: PT OWN MED DRAWER 7, Y5N ONE ×3 (09:56→15:50)
[2016-07-06] MEDS: MINOXIDIL 10 MG TABLET PO SCH (10:12)
[2016-07-06] MEDS: HEPARIN NA (PORCINE) 5,000 UNITS/ML 1ML VIAL SQ SCH ×2 (10:13→21:26)
[2016-07-06] MEDS ORDERED: EPOETIN ALFA 20,000 UNIT/1 ML VIAL IVPUSH ONE (11:00)
[2016-07-06 11:12] LABS: BASOPHIL 0.9 % (0-2.0); EOSINOPHIL 3.1 % (0-4.5); MCH 28.4 pg (25.7-33.7); MCHC 32.6 g/dl (32.0-35.9); MEAN CELL VOLUME 87.1 fl (80-96); MEAN PLT VOLUME 7.7 fl (7.5-11.1); NEUTROPHILS 71.7 % (42.8-82.8); PLATELET COUNT 319 K/MM3 (134-434); RDW 15.8 % (11.9-15.9)
[2016-07-06] MEDS: MUPIROCIN 2% TOPICAL OINTMENT 22 GM TUBE TP SCH ×2 (12:14→21:29)
[2016-07-06 12:29] LABS: ALBUMIN 2.2 g/dl (3.4-5.0); BILIRUBIN,TOTAL 0.5 mg/dL (0.2-1.0); CALCIUM 8.6 mg/dL (8.5-10.1); COCKROFT - GAULT 6.75; TOT PROT 7.1 g/dl (6.4-8.2)
[2016-07-06 12:55] LABS: CREATININE 15.8 mg/dL (0.7-1.3)
[2016-07-06 13:03] LABS: C-REACTIVE PROTEIN 15.2 MG/DL (0.00-0.3)
--- NOTE | 2016-07-06 14:01 | PN ---
Progress Note, Physician History of Present Illness: No c/o foot pain No fever/ chills WBC remains elevated but improved Vancomycin level 17.2 - Current Medication List Current Medications: Active Medications Acetaminophen (Tylenol -) 650 mg PO Q4H PRN PRN Reason: FEVER OR PAIN Last Admin: 07/05/16 21:39 Dose: 650 mg Calcium Acetate (Phoslo -) 667 mg PO TIDCM [facility] Last Admin: 07/06/16 12:14 Dose: Not Given Heparin Sodium (Porcine) (Heparin -) 5,000 unit SQ BID [facility] Last Admin: 07/06/16 10:13 Dose: 5,000 unit Piperacillin Sod/Tazobactam Sod (Zosyn 2.25gm Ivpb (Pre-Docked)) 50 mls @ 100 mls/hr IVPB Q8H-IV [facility] PRN Reason: Protocol Last Admin: 07/06/16 10:12 Dose: 100 mls/hr Insulin Aspart (Novolog Vial Sliding Scale -) 1 vial SQ BIDAC [facility] PRN Reason: Protocol Last Admin: 07/06/16 06:46 Dose: Not Given Insulin Detemir (Levemir Vial) 6 units SQ HS [facility] Last Admin: 07/05/16 21:44 Dose: 6 units Minoxidil (Loniten -) 10 mg PO DAILY [facility] Last Admin: 07/06/16 10:12 Dose: 10 mg Mupirocin (Bactroban 2% Ointment -) 1 applic TP BID [facility] Last Admin: 07/06/16 12:14 Dose: Not Given Oxycodone HCl (Roxicodone -) 5 mg PO Q4H PRN PRN Reason: PAIN LEVEL 1-5 Last Admin: 07/05/16 21:30 Dose: 5 mg Torsemide (Demadex -) 20 mg PO BIDLASIX [facility] Last Admin: 07/06/16 06:01 Dose: 20 mg - Objective Vital Signs: Vital Signs Temperature 98.2 F 07/06/16 10:50 Pulse Rate 96 H 07/06/16 12:50 Respiratory Rate 18 07/06/16 12:50 Blood Pressure 170/80 07/06/16 12:50 O2 Sat by Pulse Oximetry (%) 96 07/05/16 21:00 Constitutional: Yes: No Distress Eyes: Yes: Conjunctiva Clear Cardiovascular: Yes: Regular Rate and Rhythm, S1, S2 Respiratory: Yes: CTA Bilaterally Gastrointestinal: Yes: Normal Bowel Sounds, Soft. No: Tenderness Extremities: Yes: Other (dressings in place, feet bilaterally) Labs: CBC, BMP 07/06/16 10:50 07/06/16 10:50 INR, PTT INR 1.46 (0.82-1.09) H 06/27/16 20:25 Assessment/Plan POD # 3 I&D diabetic foot infection/ amputation 4th/ 5th toes Osteomyelitis R foot Wound c/s polymicrobial MRSA/ anaerobe / diphtheroid Continue zosyn/ vancomycin, adjusted for ESRD Redose vancomycin am Local wound care
--- NOTE | 2016-07-06 15:40 | PN ---
Physical Exam: SUBJECTIVE: Patient seen and examined at bedside. No overnight events. No new compaints. S/P amputation of 4/5 toes. pain well controlled. Denies CP,MICHAEL,SOB, abd.pain, N/V. OBJECTIVE: Vital Signs Period Temp Pulse Resp BP Sys/Salas Pulse Ox Last 24 Hr 97.7 F-99.6 F 78-85 16-18 99-166/59-98 95 GENERAL: AAOx3, mild distress HEAD: NC/AT EYES:PERRLA, EOMI, sclera anicteric, conjunctiva clear. No lid lag. EARS, NOSE, THROAT: Ears normal, nares patent, oropharynx clear without exudates. Moist mucous membranes. NECK: Normal range of motion, supple without lymphadenopathy, JVD, or masses. LUNGS:CTAB, No wheezes, and no crackles. No accessory muscle use. HEART:RRR, normal S1 and S2 . ABDOMEN: Soft, NT/ND, BS(+) no guarding, no rebound, no masses. No hepatomegaly or splenomegaly. LOWER EXTREMITIES: 2+ pulses, warm, well-perfused. mild bilat.calf tenderness. No peripheral edema. 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 wound appears clean, no purulent drainage.tenderness to palpation. NEUROLOGICAL: Cranial nerves II-XII intact. Normal speech. gait not observed Laboratory Results - last 24 hr 07/05/16 07/05/16 07/05/16 16:00 17:25 21:28 WBC RBC Hgb Hct MCV MCHC RDW Plt Count MPV Neutrophils % Lymphocytes % Monocytes % Eosinophils % Basophils % ESR > 130 H Sodium Potassium Chloride Carbon Dioxide Anion Gap BUN Creatinine Creat Clearance w eGFR POC Glucometer 130 164 Random Glucose Calcium Total Bilirubin AST ALT Alkaline Phosphatase C-Reactive Protein Total Protein Albumin Random Vancomycin 07/06/16 07/06/16 07/06/16 05:48 10:50 10:50 WBC 15.0 H RBC 2.89 L Hgb 8.2 L Hct 25.1 L MCV 87.1 MCHC 32.6 RDW 15.8 Plt Count 319 MPV 7.7 Neutrophils % 71.7 Lymphocytes % 12.6 Monocytes % 11.7 H Eosinophils % 3.1 Basophils % 0.9 ESR Sodium 133 L Potassium 5.0 Chloride 90 L Carbon Dioxide 24 Anion Gap 19 H BUN 58 H D Creatinine 15.8 H* Creat Clearance w eGFR 3.21 POC Glucometer 88 Random Glucose 96 Calcium 8.6 Total Bilirubin 0.5 AST 17 D ALT 22 D Alkaline Phosphatase 90 C-Reactive Protein 15.2 H D Total Protein 7.1 Albumin 2.2 L Random Vancomycin 07/06/16 07/06/16 10:50 11:00 WBC RBC Hgb Hct MCV MCHC RDW Plt Count MPV Neutrophils % Lymphocytes % Monocytes % Eosinophils % Basophils % ESR Sodium Potassium Chloride Carbon Dioxide Anion Gap BUN Creatinine Creat Clearance w eGFR POC Glucometer Random Glucose Calcium Total Bilirubin AST ALT Alkaline Phosphatase C-Reactive Protein Cancelled Total Protein Albumin Random Vancomycin 17.2 Active Medications Generic Name Dose Route Start Last Admin Trade Name Freq PRN Reason Stop Dose Admin Acetaminophen 650 mg 07/03/16 14:38 07/05/16 21:39 Tylenol - PO 650 mg Q4H PRN Administration FEVER OR PAIN Calcium Acetate 667 mg 07/03/16 17:30 07/06/16 12:14 Phoslo - PO Not Given TIDCM [facility] Heparin Sodium (Porcine) 5,000 unit 07/03/16 22:00 07/06/16 10:13 Heparin - SQ 5,000 unit BID [facility] Administration Piperacillin Sod/Tazobactam Sod 50 mls @ 100 mls/hr 07/03/16 18:00 07/06/16 10: 12 Zosyn 2.25gm Ivpb (Pre-Docked) IVPB 100 mls/hr Q8H-IV [facility] Administration Protocol Insulin Aspart 1 vial 07/03/16 16:30 07/06/16 06:46 Novolog Vial Sliding Scale - SQ Not Given BIDAC [facility] Protocol Insulin Detemir 6 units 07/03/16 22:00 07/05/16 21:44 Levemir Vial SQ 6 units HS [facility] Administration Minoxidil 10 mg 07/04/16 10:00 07/06/16 10:12 Loniten - PO 10 mg DAILY [facility] Administration Mupirocin 1 applic 07/03/16 22:00 07/06/16 12:14 Bactroban 2% Ointment - TP Not Given BID [facility] Torsemide 20 mg 07/04/16 06:00 07/06/16 06:01 Demadex - PO 20 mg BIDLASIX [facility] Administration ASSESSMENT/PLAN: 55 yo M with significant PMHx. of IDDM, ESRD,HTN and chronic foot ulcers admitted to inpatient service for sepsis secondary to foot ulcer infection and osteomyelitis. Problem List - Problems (1) Sepsis Assessment/Plan: * WBC stable continue to monitor. * Vanco level 17 today will dose in AM as per ID * Osteomyelitis of foot. Will need extended period of IV ABx. * Continue Vanco/Zosyn for MRSA from Intraoperative specimen. * Bone biopsy cultures show strep salivarus * oxycodone prn for pain (2) Wound infection Assessment/Plan: * Continue Vanco/Zosyn * wound C/D/I * s/p R foot debridement with 4th/5th toe amputation and 4th/5th partial ray resection * saline irrigation and moist to dry dressing. * Wound Vac * Daily wound care. (3) Diabetes mellitus with nephropathy Assessment/Plan: * Renal/ADA diet * ISS AC * BGM ACHS * Levemir 6 Units HS (4) ESRD (end stage renal disease) Assessment/Plan: * Dialyzed today * Renal diet * avoid nephrotoxins. * renal dose meds. * repeat AM labs. (5) HTN (hypertension) Assessment/Plan: * Minoxidil 10mg PO AM not given today because of HD * Hold for SBP <90 * followed by Dr. Dueñas in community (6) DVT prophylaxis Assessment/Plan: * Heparin 5000 units BID Visit type - Emergency Visit Emergency Visit: Yes ED Registration Date: 06/27/16 Care time: The patient presented to the Emergency Department on the above date and was hospitalized for further evaluation of their emergent condition. - New Patient This patient is new to me today: No - Critical Care Critical Care patient: No
--- NOTE | 2016-07-06 16:46 | PN ---
Teaching Attending Note Name of Resident: Steven Constantino ATTENDING PHYSICIAN STATEMENT I saw and evaluated the patient. I reviewed the resident's note and discussed the case with the resident. I agree with the resident's findings and plan as documented. SUBJECTIVE: no pain . no SOB or pain. had a fever OBJECTIVE: NAD Cv: RRR Lungs: CTAB Ext: . L foot with ulcers on sole ( 1st MTP , and 5th Metatarsal head ) . no purulent drainage. R foot with surgical packed wound with S/p 4th. 5th digit amputation , with ulcer on sole . no drainage ASSESSMENT AND PLAN: 55 y/o man with h/o HTN, ESRD adn IDDm who is being treated for sepsis from infected wounds on feet and OM of R 4th metatarsal head . 1- Sepsis due to DFI and OM 4th Metatarsal head. s/p debridment and 4th metatarsal head resection and wash out 06/29 . 4th , 5th toe amputation 07/03 - had a low grade fever. leukocytosis improved . - ESR yesterday > 130 ( much worse ) . CRP this am 15.5 - will follow ESR. CRP - UA , urine cx . no sx of PNA - cont vanco and zosyn 2- HTN cont minoxidil . 3- ESRD: cont HD TTS 4- IDDM : cont levemir and SSi dispo : OC for rehab when ready
--- NOTE | 2016-07-06 16:56 | PN ---
Progress Note (short form) - Note Progress Note: Podiatry: Pt seen and evaluated at bedside, NAD. Pain improving, does have temp yesterday evening to 100.7 F. Currently afebrile. S/p R foot debridement/ lavage for severe diabetic foot infection with 4th/5th toe amputation and partial 4th/5th ray resection POD #3. On Vanco in HD. ABDIAS: R foot: dressing C/D/I, no active bleeding, no strikethrough. Large post- surgical wound 4th and 5th rays with retention sutures proximally and distally with central aspect of wound packed with saline gauze. The underlying wound base is fibrogranular. There is a necrotic patch along the dorsal medial edge of the surgical wound. On compression, there is superficial purulence expressed from the necrotic patch. There is no other purulence expressed from the wound. There is no soft tissue crepitus, no fluctuance, no streaking cellulitis. Mild tenderness elicited on palpation of surgical site. WBC: 15.0, mild decrease ESR>130 OR Bone Cx: MRSA, strep salivarius Blood Cx: no growth x 5 days Imp: 55 year old IDDM M s/p R foot debridement x 2 with 4th/5th toe amputation and partial resection 4th/5th rays for severe diabetic foot infection 1. With verbal consent obtained, bedside excisional debridement performed to level of subcutaneous tissue and fascia using #15 blade scalpel. All superficial purulence expressed from wound as long as necrotic tissue. There was underlying bleeding, granular tissue. There is exposed 3rd extensor tendon , however does not probe to bone. The wound was irrigated with sterile saline and saline moist to dry dressing applied. 2. Will continue to monitor closely for improvement in leukocytosis and fevers 3. Hopefully will not need further debridement, however discussed this potential with patient. 4. C/w IV abx per ID 5. Pain control 6. Non-weightbearing right foot 7. Once infection settles, will need VAC therapy 8. Will closely follow Mel Almanzar DPM
[2016-07-06] MEDS ORDERED: oxyCODONE HCL 5 MG TABLET ONE (17:07)
--- NOTE | 2016-07-06 18:16 | PN ---
Progress Note (short form) - Note Progress Note: Renal Follow up for ESRD on HD Pt seen and examined at the bedside s/p HD today tolerated it well febrile today Vital Signs Temperature 100.5 F H 07/06/16 17:05 Pulse Rate 92 H 07/06/16 17:05 Respiratory Rate 20 07/06/16 17:05 Blood Pressure 149/64 07/06/16 17:05 O2 Sat by Pulse Oximetry (%) 96 07/05/16 21:00 Intake & Output 07/03/16 07/04/16 07/05/16 07/06/16 23:59 23:59 23:59 23:59 Intake Total 923 637 4932 100 Output Total 20 70 30 Balance 531 634 6929 100 Gen: NAD, awake and alert HEENT: No JVD CVS: RRR, No M/R Lungs: CTA Abd: soft NT/ND Ext: No edema, clubbing or edema CBC, BMP 07/06/16 10:50 07/06/16 10:50 Current Medications Acetaminophen (Tylenol -) 650 mg PO Q4H PRN PRN Reason: FEVER OR PAIN Last Admin: 07/05/16 21:39 Dose: 650 mg Calcium Acetate (Phoslo -) 667 mg PO TIDCM [facility] Last Admin: 07/06/16 17:16 Dose: 667 mg Docusate Sodium (Colace -) 100 mg PO TID [facility]IK Heparin Sodium (Porcine) (Heparin -) 5,000 unit SQ BID [facility] Last Admin: 07/06/16 10:13 Dose: 5,000 unit Piperacillin Sod/Tazobactam Sod (Zosyn 2.25gm Ivpb (Pre-Docked)) 50 mls @ 100 mls/hr IVPB Q8H-IV MONIK PRN Reason: Protocol Last Admin: 07/06/16 17:16 Dose: 100 mls/hr Insulin Aspart (Novolog Vial Sliding Scale -) 1 vial SQ BIDAC [facility] PRN Reason: Protocol Last Admin: 07/06/16 17:15 Dose: Not Given Insulin Detemir (Levemir Vial) 6 units SQ HS [facility] Last Admin: 07/05/16 21:44 Dose: 6 units Minoxidil (Loniten -) 10 mg PO DAILY [facility] Last Admin: 07/06/16 10:12 Dose: 10 mg Mupirocin (Bactroban 2% Ointment -) 1 applic TP BID [facility] Last Admin: 07/06/16 12:14 Dose: Not Given Oxycodone HCl (Roxicodone -) 5 mg PO Q4H PRN PRN Reason: PAIN Torsemide (Demadex -) 20 mg PO BIDLASIX [facility] Last Admin: 07/06/16 06:01 Dose: 20 mg A/P 55 year old Male with PMhx of ESRD on HD, Hypertension, DM who presented with Fever and LE wound #ESRD on HD tolerated HD well will maintain on TTS schedule #Acute on Chronic Anemia Continue high dose epogen with HD #LE Wound/Infection MRSA in wound cultures continue Vanco dosed by levels Surgical management as per Podiatry #Hypertension Hx of refractory Hypertension Continue Minoxidil, Torsemide Cm Torres DO
[2016-07-06] MEDS: DOCUSATE SODIUM 100 MG CAPSULE (FP) PO SCH (21:25)
[2016-07-06] MEDS: INSULIN DETEMIR 100 UNITS/ML MDV SQ SCH (21:29)
[2016-07-07] MEDS: PIPERACILLIN/TAZOB 2.25 GM 50 ML IVPB SCH ×3 (01:11→17:07)
[2016-07-07] MEDS: ACETAMINOPHEN 325 MG TABLET (FP) PO PRN ×2 (02:02→13:38)
[2016-07-07] MEDS: oxyCODONE HCL 5 MG TABLET PO PRN ×2 (02:02→13:38)
[2016-07-07] MEDS: DOCUSATE SODIUM 100 MG CAPSULE (FP) PO SCH ×3 (05:52→21:53)
[2016-07-07] MEDS: TORSEMIDE 20 MG TABLET (FP) PO SCH ×3 (05:52→13:38)
[2016-07-07] MEDS: INSULIN SLIDING SCALE (NOVOLOG) 1 VIAL SQ SCH ×2 (06:31→17:07)
[2016-07-07 08:10] LABS: BASOPHIL 0.8 % (0-2.0); EOSINOPHIL 2.5 % (0-4.5); MCH 28.8 pg (25.7-33.7); MCHC 32.6 g/dl (32.0-35.9); MEAN CELL VOLUME 88.3 fl (80-96); MEAN PLT VOLUME 7.5 fl (7.5-11.1); NEUTROPHILS 66.2 % (42.8-82.8); PLATELET COUNT 322 K/MM3 (134-434); RDW 15.5 % (11.9-15.9); WHITE BLOOD COUNT 13.2 K/mm3 (4.0-10.0)
[2016-07-07 08:23] LABS: CALCIUM 8.4 mg/dL (8.5-10.1); COCKROFT - GAULT 9.98
[2016-07-07] MEDS: CALCIUM ACETATE 667 MG CAPSULE (FP) PO SCH ×3 (08:45→16:58)
[2016-07-07 09:11] LABS: CREATININE 10.7 mg/dL (0.7-1.3)
[2016-07-07] MEDS: HEPARIN NA (PORCINE) 5,000 UNITS/ML 1ML VIAL SQ SCH ×2 (09:49→21:53)
[2016-07-07] MEDS ORDERED: VANCOMYCIN 1 GRAM (PRE-DOCKED) 250 ML IVPB ONE (10:14)
--- NOTE | 2016-07-07 11:18 | PATH ---
Surgical Pathology Report Patient Name: ZAK THOMPSON Med. Rec. #: [id number] /Age/Gender: 1960 (Age: 55) / M Account: [id number] Location: [facility] MED/SURG Taken: 06/29/2016 Received: 06/30/2016 Reported: 07/01/2016 Physicians: Vazquez Almanzar DPM Specimen(s) Received METATARSAL RIGHT FOOT Clinical History Sepsis wound infection Final Diagnosis BONE, METATARSAL RIGHT FOOT, REJECTION: BONE WITH ACUTE AND CHRONIC OSTEOMYELITIS. NECROSIS EXTENDS TO THE BONE RESECTION MARGIN. Electronically Signed Jorge Tellez M.D. Gross Description Received in formalin labeled "metatarsal right foot" is a 1.9 x 1.7 x 1.7 cm portion of bone. The bone displays smooth articular cartilage at one end and smooth trabeculated bone at the opposing end, consistent with true bone margin. Bander Operator sections are submitted in in 3 cassettes as follows: 1-bone end with articular cartilage, following decalcification; 2-probable true bone margin, following decalcification; 3-full thickness section of bone, following decalcification. /06/30/2016 saudi/06/30/2016
--- NOTE | 2016-07-07 11:20 | PATH ---
Surgical Pathology Report Patient Name: ZAK THOMPSON [facility]. Rec. #: [id number] /Age/Gender: 1960 (Age: 55) / M Account: [id number] Location: [facility] MED/SURG Taken: 07/03/2016 Received: 07/05/2016 Reported: 07/06/2016 Physicians: Vazquez Almanzar DPM Specimen(s) Received A: RIGHT FOOT, 4TH & 5TH TOES; DEBRIDEMENT TISSUE WOUND RIGHT FOOT B: METATARSAL BONE RIGHT FOOT Clinical History Wound right foot Final Diagnosis A. RIGHT FOURTH AND FIFTH TOES AND DEBRIDED TISSUE, WOUND RIGHT FOOT, EXCISIONAL DEBRIDEMENT: SKIN, UNDERLYING SOFT TISSUE AND BONE WITH ACUTE NECROTIZING INFLAMMATION AND GANGRENOUS NECROSIS. NECROSIS EXTENDS TO THE SKIN, SOFT TISSUE AND PARTIALLY BONE RESECTION MARGINS. SEPARATE FRAGMENTS OF SKIN AND SOFT TISSUE WITH ACUTE NECROTIZING INFLAMMATION AND GANGRENOUS NECROSIS. B. METATARSAL BONE, RIGHT FOOT, EXCISION: FRAGMENTS OF BONE WITH NECROSIS AND FOCAL ACUTE OSTEOMYELITIS. NECROSIS AND OSTEOMYELITIS APPEAR TO EXTEND TO THE BONE RESECTION MARGINS. Electronically Signed Jorge Tellez M.D. Gross Description A. Received in formalin labeled "debrided tissue wound right fourth and fifth toes right foot" is a 7.5 x 4.0 x 3.6 cm product of a fourth and fifth digit transmetatarsal amputation. The entire epidermal surface displays a black-barraza, gangrenous lesion, involving the skin and soft tissue margin. The lesion extends to and possibly involves the underlying bone. Also received within the same container is a 3.5-3.0 x 1.0 cm aggregate of. Avionics Systems Integration Specialist sections are submitted in 5 cassettes as follows: 1-lesion with underlying bone, following decalcification; 2-skin and soft tissue margin; 3-fourth digit bone margin, following decalcification; 4-fifth digit bone margin, following decalcification; 5-separately received skin and soft tissue fragments. B. Received in formalin labeled "metatarsal bone right foot" are 2 undesignated portions of bone measuring 2.0 x 1.3 x 1.0 cm and 3.5 x 2.0 x 1.8 cm. The longer portion of bone displays smooth articular cartilage at one end and smooth trabecular bone at the opposing margin. The shorter portion of bone displays smooth, trabecular bone at both margins. Avionics Systems Integration Specialist sections are submitted in 4 cassettes as follows: 1-margin with articular cartilage from longer portion of bone, following decalcification; 2-margin with trabecular bone from longer portion of bone, following decalcification; 7-3-aocappefuinn margins from shorter portion of bone, following decalcification. 07/05/201607/05/2016
--- NOTE | 2016-07-07 12:03 | PN ---
Progress Note (short form) - Note Progress Note: Podiatry: Seen and evaluated at bedside, NAD. Pain well controlled, denies F/V/N/C/SOB/ CP. S/p debridement x 2 with 4th/5th toe amputation and 4th/5th partial met resection for severe DM foot infection POD #4. Did have fever to 100F last night, however currently afebrile. WBCs finally trending down. ABDIAS: R foot: post-surgical wound along 4th/5th rays with mixed fibrogranular tissue, small areas of necrotic changes, exposed extensor tendon 3rd MTPJ; no purulent drainage, no fluctuance, no erythema, no ascending cellulitis, no signs of active infection. Mild tenderness to palpation. CFT brisk to 3rd digit. WBC: 13.2, decreasing Blood Cx: no growth x 5 days Bone Cx: MRSA, strep salivarius Imp: 55 year old DM M s/p R foot debridement x 2 with 4th/5th toe amputation and 4th/5th metatarsal head resection 1. C/w IV abx per ID 2. WBCs finally trending down, temps should improve as well 3. Saline irrigation at bedside with saline wet to dry dressing 4. Non-WB R foot 5. Will apply santyl and wound VAC tomorrow if wound looks clean 6. Case management for ? PAZ placement, wound VAC, non-weightbearing R foot 7. May need PICC, depending on if [facility] IV abx can be administered through HD 8. Will closely follow Mel Almanzar DPM
[2016-07-07] MEDS: MINOXIDIL 10 MG TABLET PO SCH ×2 (13:40→16:58)
[2016-07-07] MEDS: MUPIROCIN 2% TOPICAL OINTMENT 22 GM TUBE TP SCH ×2 (13:41→21:53)
--- NOTE | 2016-07-07 14:32 | PN ---
Progress Note (short form) - Note Progress Note: Renal Follow up for ESRD on HD Pt seen and examined at the bedside has tenderness in the foot s/p dialysis yesterday no fevers, chills Vital Signs Temperature 98.2 F 07/07/16 09:00 Pulse Rate 73 07/07/16 09:00 Respiratory Rate 16 07/07/16 09:00 Blood Pressure 136/73 07/07/16 09:00 O2 Sat by Pulse Oximetry (%) 97 07/07/16 09:00 Intake & Output 07/04/16 07/05/16 07/06/16 07/07/16 23:59 23:59 23:59 23:59 Intake Total 835 1100 270 260 Output Total 70 30 100 Balance 765 1070 270 160 Gen: NAD, awake and alert HEENT: No JVD CVS: RRR, No M/R Lungs: CTA Abd: soft NT/ND Ext: No edema, clubbing or edema CBC, BMP 07/07/16 07:00 07/07/16 06:00 Laboratory Tests 07/07/16 07/07/16 06:00 07:00 MCV 88.3 Calcium 8.4 L Current Medications Acetaminophen (Tylenol -) 650 mg PO Q4H PRN PRN Reason: FEVER OR PAIN Last Admin: 07/07/16 13:38 Dose: 650 mg Calcium Acetate (Phoslo -) 667 mg PO TIDCM [facility] Last Admin: 07/07/16 12:38 Dose: 667 mg Docusate Sodium (Colace -) 100 mg PO TID [facility] Last Admin: 07/07/16 13:39 Dose: 100 mg Heparin Sodium (Porcine) (Heparin -) 5,000 unit SQ BID [facility] Last Admin: 07/07/16 09:49 Dose: 5,000 unit Piperacillin Sod/Tazobactam Sod (Zosyn 2.25gm Ivpb (Pre-Docked)) 50 mls @ 100 mls/hr IVPB Q8H-IV [facility] PRN Reason: Protocol Last Admin: 07/07/16 09:48 Dose: 100 mls/hr Insulin Aspart (Novolog Vial Sliding Scale -) 1 vial SQ BIDAC [facility] PRN Reason: Protocol Last Admin: 07/07/16 06:31 Dose: Not Given Insulin Detemir (Levemir Vial) 6 units SQ HS [facility] Last Admin: 07/06/16 21:29 Dose: 6 units Minoxidil (Loniten -) 10 mg PO DAILY [facility] Last Admin: 07/07/16 13:40 Dose: Not Given Mupirocin (Bactroban 2% Ointment -) 1 applic TP BID [facility] Last Admin: 07/07/16 13:41 Dose: Not Given Oxycodone HCl (Roxicodone -) 5 mg PO Q4H PRN PRN Reason: PAIN Last Admin: 07/07/16 13:38 Dose: 5 mg Torsemide (Demadex -) 20 mg PO BIDLASIX [facility] Last Admin: 07/07/16 13:38 Dose: 20 mg A/P 55 year old Male with PMhx of ESRD on HD, Hypertension, DM who presented with Fever and LE wound #ESRD on HD no indication for dialysis today next treatment planned for tomorrow #Acute on Chronic Anemia Continue high dose epogen with HD #LE Wound/Infection MRSA in wound cultures Vanco level is 12 today, will give extra 1g (disscussed with ID) #Hypertension Hx of refractory Hypertension Continue Minoxidil, Torsemide Cm Torres DO
--- NOTE | 2016-07-07 15:51 | PN ---
Physical Exam: SUBJECTIVE: Patient seen and examined at bedside. No fevers overnight. No new complaints. Pain well controlled. Feels ok. Denies CP,MICHAEL, SOB, abd.pain, palpitations, N/V. OBJECTIVE: Vital Signs Period Temp Pulse Resp BP Sys/Salas Pulse Ox Last 24 Hr 97.9 F-100.5 F 73-92 16-20 136-150/64-78 97-97 GENERAL: AAOx3, mild distress HEAD: NC/AT EYES:PERRLA, EOMI, sclera anicteric, conjunctiva clear. No lid lag. EARS, NOSE, THROAT: Ears normal, nares patent, oropharynx clear without exudates. Moist mucous membranes. NECK: Normal range of motion, supple without lymphadenopathy, JVD, or masses. LUNGS:CTAB, No wheezes, and no crackles. No accessory muscle use. HEART:RRR, normal S1 and S2 . ABDOMEN: Soft, NT/ND, BS(+) no guarding, no rebound, no masses. No hepatomegaly or splenomegaly. LOWER EXTREMITIES: 2+ pulses, warm, well-perfused. mild bilat.calf tenderness. No peripheral edema. 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 wound appears clean, no purulent drainage.tenderness to palpation. NEUROLOGICAL: Normal speech. gait not observe Laboratory Results - last 24 hr 07/06/16 07/06/16 07/07/16 17:14 21:25 05:53 WBC RBC Hgb Hct MCV MCHC RDW Plt Count MPV Neutrophils % Lymphocytes % Monocytes % Eosinophils % Basophils % Sodium Potassium Chloride Carbon Dioxide Anion Gap BUN Creatinine POC Glucometer 136 163 82 Random Glucose Calcium Random Vancomycin 07/07/16 07/07/16 06:00 07:00 WBC 13.2 H RBC 2.87 L Hgb 8.3 L Hct 25.3 L MCV 88.3 MCHC 32.6 RDW 15.5 Plt Count 322 MPV 7.5 Neutrophils % 66.2 Lymphocytes % 16.3 D Monocytes % 14.2 H Eosinophils % 2.5 Basophils % 0.8 Sodium 135 L Potassium 4.2 Chloride 94 L Carbon Dioxide 30 D Anion Gap 11 BUN 33 H D Creatinine 10.7 H* D POC Glucometer Random Glucose 71 L D Calcium 8.4 L Random Vancomycin 12.148 Active Medications Generic Name Dose Route Start Last Admin Trade Name Freq PRN Reason Stop Dose Admin Acetaminophen 650 mg 07/03/16 14:38 07/07/16 13:38 Tylenol - PO 650 mg Q4H PRN Administration FEVER OR PAIN Calcium Acetate 667 mg 07/03/16 17:30 07/07/16 12:38 Phoslo - PO 667 mg TIDCM MONIK Administration Docusate Sodium 100 mg 07/06/16 22:00 07/07/16 13:39 Colace - PO 100 mg TID MONIK Administration Epoetin Alexander 20,000 units 07/08/16 09:00 Epogen - IVPUSH 07/08/16 09:01 ONCE ONE Heparin Sodium (Porcine) 5,000 unit 07/03/16 22:00 07/07/16 09:49 Heparin - SQ 5,000 unit BID MONIK Administration Piperacillin Sod/Tazobactam Sod 50 mls @ 100 mls/hr 07/03/16 18:00 07/07/16 09: 48 Zosyn 2.25gm Ivpb (Pre-Docked) IVPB 100 mls/hr Q8H-IV MONIK Administration Protocol Vancomycin HCl 1,000 mg/ 250 mls @ 250 mls/hr 07/08/16 09:00 Dextrose IVPB 07/08/16 09:59 ONCE ONE Protocol Insulin Aspart 1 vial 07/03/16 16:30 07/07/16 06:31 Novolog Vial Sliding Scale - SQ Not Given BIDAC [facility] Protocol Insulin Detemir 6 units 07/03/16 22:00 07/06/16 21:29 Levemir Vial SQ 6 units HS MONIK Administration Minoxidil 10 mg 07/04/16 10:00 07/07/16 13:40 Loniten - PO Not Given DAILY [facility]IK Mupirocin 1 applic 07/03/16 22:00 07/07/16 13:41 Bactroban 2% Ointment - TP Not Given BID [facility]IK Oxycodone HCl 5 mg 07/06/16 17:25 07/07/16 13:38 Roxicodone - PO 5 mg Q4H PRN Administration PAIN Torsemide 20 mg 07/04/16 06:00 07/07/16 13:38 Demadex - PO 20 mg BIDLASIX [facility] Administration ASSESSMENT/PLAN: 55 yo M with significant PMHx. of IDDM, ESRD,HTN and chronic foot ulcers admitted to inpatient service for sepsis secondary to foot ulcer infection and osteomyelitis. Problem List - Problems (1) Sepsis Assessment/Plan: * WBC trending down and afebrile overnight. * Osteomyelitis of foot. Will need extended period of IV ABx. * Continue Vanco/Zosyn for MRSA from Intraoperative specimen. * Bone biopsy cultures show strep salivarus * oxycodone prn for pain (2) Wound infection Assessment/Plan: * Continue Vanco/Zosyn as per ID * wound C/D/I * s/p R foot debridement with 4th/5th toe amputation and 4th/5th partial ray resection * Non weight bearing as per podiatry * saline irrigation and moist to dry dressing. * Wound Vac for tomorrow * Daily wound care. (3) Diabetes mellitus with nephropathy Assessment/Plan: * Renal/ADA diet * ISS AC * BGM ACHS * Levemir 6 Units HS (4) ESRD (end stage renal disease) Assessment/Plan: * Dialyzed yesterday * Continue high dose EPOGEN as per nephro * Renal diet * avoid nephrotoxins. * renal dose meds. * repeat AM labs. (5) HTN (hypertension) Assessment/Plan: * Minoxidil 10mg PO AM * Torsemide 20mgPO * Hold for SBP <90 * followed by Dr. Dueñas in community (6) DVT prophylaxis Assessment/Plan: * Heparin 5000 units BID Visit type - Emergency Visit Emergency Visit: Yes ED Registration Date: 06/27/16 Care time: The patient presented to the Emergency Department on the above date and was hospitalized for further evaluation of their emergent condition. - New Patient This patient is new to me today: No - Critical Care Critical Care patient: No - Discharge Referral Referred to [facility] Med P.C.: No
[2016-07-07] MEDS ORDERED: INSULIN (NOVOLOG) ASPART 100 UNITS/ML 10ML VIAL ONE (16:56)
--- NOTE | 2016-07-07 18:13 | PN ---
Teaching Attending Note Name of Resident: Steven Constantino ATTENDING PHYSICIAN STATEMENT I saw and evaluated the patient. I reviewed the resident's note and discussed the case with the resident. I agree with the resident's findings and plan as documented. SUBJECTIVE: Patient is comfortable with no acute distress, NO shortness of breath, no nausea or vomiting. OBJECTIVE: Vital Signs Temperature 99.3 F 07/07/16 17:05 Pulse Rate 85 07/07/16 17:05 Respiratory Rate 20 07/07/16 17:05 Blood Pressure 150/74 07/07/16 17:05 O2 Sat by Pulse Oximetry (%) 97 07/07/16 09:00 CBCD WBC 13.2 K/mm3 (4.0-10.0) H 07/07/16 07:00 RBC 2.87 M/mm3 (4.00-5.60) L 07/07/16 07:00 Hgb 8.3 GM/dL (11.7-16.9) L 07/07/16 07:00 Hct 25.3 % (35.4-49) L 07/07/16 07:00 MCV 88.3 fl (80-96) 07/07/16 07:00 MCHC 32.6 g/dl (32.0-35.9) 07/07/16 07:00 RDW 15.5 % (11.9-15.9) 07/07/16 07:00 Plt Count 322 K/MM3 (134-434) 07/07/16 07:00 MPV 7.5 fl (7.5-11.1) 07/07/16 07:00 CMP Sodium 135 mmol/L (136-145) L 07/07/16 06:00 Potassium 4.2 mmol/L (3.5-5.1) 07/07/16 06:00 Chloride 94 mmol/L (98-107) L 07/07/16 06:00 Carbon Dioxide 30 mmol/L (21-32) D 07/07/16 06:00 Anion Gap 11 (8-16) 07/07/16 06:00 BUN 33 mg/dL (7-18) H D 07/07/16 06:00 Creatinine 10.7 mg/dL (0.7-1.3) H* D 07/07/16 06:00 Creat Clearance w eGFR 3.21 (>60) 07/06/16 10:50 Random Glucose 71 mg/dL (74-106) L D 07/07/16 06:00 Calcium 8.4 mg/dL (8.5-10.1) L 07/07/16 06:00 Total Bilirubin 0.5 mg/dL (0.2-1.0) 07/06/16 10:50 AST 17 U/L (15-37) D 07/06/16 10:50 ALT 22 U/L (12-78) D 07/06/16 10:50 Alkaline Phosphatase 90 U/L (45-117) 07/06/16 10:50 Total Protein 7.1 g/dl (6.4-8.2) 07/06/16 10:50 Albumin 2.2 g/dl (3.4-5.0) L 07/06/16 10:50 Current Medications Generic Name Dose Route Start Last Admin Trade Name Freq PRN Reason Stop Dose Admin Acetaminophen 650 mg 07/03/16 14:38 07/07/16 13:38 Tylenol - PO 650 mg Q4H PRN Administration FEVER OR PAIN Calcium Acetate 667 mg 07/03/16 17:30 07/07/16 16:58 Phoslo - PO 667 mg TIDCM [facility] Administration Docusate Sodium 100 mg 07/06/16 22:00 07/07/16 13:39 Colace - PO 100 mg TID [facility] Administration Epoetin Alexander 20,000 units 07/08/16 09:00 Epogen - IVPUSH 07/08/16 09:01 ONCE ONE Heparin Sodium (Porcine) 5,000 unit 07/03/16 22:00 07/07/16 09:49 Heparin - SQ 5,000 unit BID [facility] Administration Piperacillin Sod/Tazobactam Sod 50 mls @ 100 mls/hr 07/03/16 18:00 07/07/16 17: 07 Zosyn 2.25gm Ivpb (Pre-Docked) IVPB 100 mls/hr Q8H-IV [facility]IK Administration Protocol Vancomycin HCl 1,000 mg/ 250 mls @ 250 mls/hr 07/08/16 09:00 Dextrose IVPB 07/08/16 09:59 ONCE ONE Protocol Insulin Aspart 1 vial 07/03/16 16:30 07/07/16 17:07 Novolog Vial Sliding Scale - SQ Not Given BIDAC [facility] Protocol Insulin Detemir 6 units 07/03/16 22:00 07/06/16 21:29 Levemir Vial SQ 6 units HS [facility] Administration Minoxidil 10 mg 07/04/16 10:00 07/07/16 16:58 Loniten - PO 10 mg DAILY [facility] Administration Mupirocin 1 applic 07/03/16 22:00 07/07/16 13:41 Bactroban 2% Ointment - TP Not Given BID [facility] Oxycodone HCl 5 mg 07/06/16 17:25 07/07/16 13:38 Roxicodone - PO 5 mg Q4H PRN Administration PAIN Torsemide 20 mg 07/04/16 06:00 07/07/16 13:38 Demadex - PO 20 mg BIDLASIX [facility] Administration Home Medications Medication Instructions Recorded Calcium Acetate [Phoslo -] 1 tab PO TID 06/30/15 Mupirocin Ointment [Bactroban 2% 1 applic TP BID #1 applic 12/08/15 Ointment -] Torsemide 20 mg PO BID 12/08/15 Minoxidil 10 mg PO DAILY 02/23/16 Insulin Lispro [Humalog] 100 unit SQ HS 06/27/16 Blood Cx: no growth x 5 days Bone Cx: MRSA, strep salivarius ASSESSMENT AND PLAN: 55 y/o man with h/o HTN, ESRD adn IDDm who is being treated for sepsis from infected wounds on feet and OM of R 4th metatarsal head . # s/p Sepsis due OM of right foot s/p s/p R foot debridement x 2 with 4th/5th toe amputation and 4th/5th metatarsal head resection;leukocytosis improving. - ESR > 130 and CRP is 15.5 will repeat the level in am, cont vanco and zosyn. will check with ID whether any need for PICC line since VAncomycin can be given POst HD. As per cylinder block mechanic: Saline irrigation at bedside with saline wet to dry dressing, Non-WB R foot, santyl and wound VAC tomorrow if wound looks clean # HTN cont minoxidil . # ESRD: cont HD (TTS) # IDDM : cont levemir and SSi possible discharge to rehab. will discuss with ID and Pillowcase Cleaner regarding the discharge plan.
[2016-07-07] MEDS: INSULIN DETEMIR 100 UNITS/ML MDV SQ SCH (21:54)
[2016-07-08] MEDS: PIPERACILLIN/TAZOB 2.25 GM 50 ML IVPB SCH ×2 (01:17→09:21)
[2016-07-08] MEDS: INSULIN SLIDING SCALE (NOVOLOG) 1 VIAL SQ SCH ×2 (06:19→16:28)
[2016-07-08] MEDS: DOCUSATE SODIUM 100 MG CAPSULE (FP) PO SCH ×3 (06:34→21:55)
[2016-07-08] MEDS: TORSEMIDE 20 MG TABLET (FP) PO SCH ×2 (06:35→13:26)
[2016-07-08] MEDS: CALCIUM ACETATE 667 MG CAPSULE (FP) PO SCH ×3 (08:21→17:19)
[2016-07-08 08:38] LABS: BASOPHIL 0.9 % (0-2.0); EOSINOPHIL 2.9 % (0-4.5); MCH 27.8 pg (25.7-33.7); MCHC 31.8 g/dl (32.0-35.9); MEAN CELL VOLUME 87.4 fl (80-96); MEAN PLT VOLUME 7.6 fl (7.5-11.1); NEUTROPHILS 67.9 % (42.8-82.8); PLATELET COUNT 325 K/MM3 (134-434); RDW 15.5 % (11.9-15.9); WHITE BLOOD COUNT 13.2 K/mm3 (4.0-10.0)
[2016-07-08] MEDS ORDERED: EPOETIN ALFA 20,000 UNIT/1 ML VIAL IVPUSH ONE (09:00)
[2016-07-08 09:07] LABS: C-REACTIVE PROTEIN 14.7 MG/DL (0.00-0.3); CALCIUM 8.2 mg/dL (8.5-10.1); COCKROFT - GAULT 8.09; MAGNESIUM 2.3 mg/dL (1.8-2.4); PHOSPHOROUS 7.4 mg/dL (2.5-4.9)
[2016-07-08] MEDS: MINOXIDIL 10 MG TABLET PO SCH ×2 (09:20→13:27)
[2016-07-08] MEDS: MUPIROCIN 2% TOPICAL OINTMENT 22 GM TUBE TP SCH ×2 (09:21→13:27)
[2016-07-08] MEDS: HEPARIN NA (PORCINE) 5,000 UNITS/ML 1ML VIAL SQ SCH ×2 (09:21→21:55)
[2016-07-08 09:30] LABS: CREATININE 13.2 mg/dL (0.7-1.3)
--- NOTE | 2016-07-08 09:37 | PN ---
Progress Note (short form) - Note Progress Note: Podiatry: Came to evaluate patient at bedside, patient in HD now. Fevers are now resolved. Currently afebrile. S/p R 4th/5th toe amputation and 4th/5th met head resection for severe DM foot infection. WBC: 13.2, stable OR Cx: MRSA, strep salivarius S/p R 4th/5th toe amputation and 4th/5th met head resection for severe DM foot infection 1. IV abx per ID. May need PICC line or IVs in HD. 2. Non-WB R foot 3. Santyl and VAC R foot, bactroban L foot 4. Fevers have rectified and WBCs decreased 5. Will need d/c to [facility] for VAC therapy, IV abx, non-WB R foot 6. Will f/u in [facility] on Tuesday, 07/13 Mel Almanzar DPM
[2016-07-08] MEDS ORDERED: VANCOMYCIN 1 GRAM (PRE-DOCKED) 250 ML IVPB ONE (11:00)
--- NOTE | 2016-07-08 11:46 | PN ---
Progress Note, Physician History of Present Illness: Awake, alert No c/o foot pain Temps down Afebrile WBC improving Vancomycin T 25 - Current Medication List Current Medications: Active Medications Acetaminophen (Tylenol -) 650 mg PO Q4H PRN PRN Reason: FEVER OR PAIN Last Admin: 07/07/16 13:38 Dose: 650 mg Calcium Acetate (Phoslo -) 667 mg PO TIDCM [facility] Last Admin: 07/08/16 08:21 Dose: Not Given Collagenase (Santyl -) 1 applic TP DAILY [facility] Docusate Sodium (Colace -) 100 mg PO TID [facility] Last Admin: 07/08/16 06:34 Dose: Not Given Heparin Sodium (Porcine) (Heparin -) 5,000 unit SQ BID [facility] Last Admin: 07/08/16 09:21 Dose: Not Given Piperacillin Sod/Tazobactam Sod (Zosyn 2.25gm Ivpb (Pre-Docked)) 50 mls @ 100 mls/hr IVPB Q8H-IV [facility] PRN Reason: Protocol Last Admin: 07/08/16 09:21 Dose: Not Given Vancomycin HCl (Vancomycin (Pre-Docked)) 250 mls @ 166.667 mls/hr IVPB ONCE ONE PRN Reason: Protocol Stop: 07/08/16 12:29 Last Admin: 07/08/16 11:23 Dose: Not Given Insulin Aspart (Novolog Vial Sliding Scale -) 1 vial SQ BIDAC [facility] PRN Reason: Protocol Last Admin: 07/08/16 06:19 Dose: Not Given Insulin Detemir (Levemir Vial) 6 units SQ HS [facility] Last Admin: 07/07/16 21:54 Dose: 6 units Minoxidil (Loniten -) 10 mg PO DAILY [facility] Last Admin: 07/08/16 09:20 Dose: Not Given Mupirocin (Bactroban 2% Ointment -) 1 applic TP DAILY [facility] Oxycodone HCl (Roxicodone -) 5 mg PO Q4H PRN PRN Reason: PAIN Last Admin: 07/07/16 13:38 Dose: 5 mg Torsemide (Demadex -) 20 mg PO BIDLASIX [facility] Last Admin: 07/08/16 06:35 Dose: Not Given - Objective Vital Signs: Vital Signs Temperature 98.9 F 07/08/16 09:00 Pulse Rate 87 07/08/16 11:22 Respiratory Rate 18 07/08/16 11:22 Blood Pressure 160/75 07/08/16 11:22 O2 Sat by Pulse Oximetry (%) 97 07/07/16 21:00 Constitutional: Yes: No Distress Eyes: Yes: Conjunctiva Clear Cardiovascular: Yes: Regular Rate and Rhythm, S1, S2 Respiratory: Yes: CTA Bilaterally Gastrointestinal: Yes: Normal Bowel Sounds, Soft. No: Tenderness Extremities: Yes: Other (R foot toe amputation site no drainage) Labs: CBC, BMP 07/08/16 07:30 07/08/16 07:30 INR, PTT INR 1.46 (0.82-1.09) H 06/27/16 20:25 Assessment/Plan Post op I&D diabetic foot infection/ amputation 4th/ 5th toes Osteomyelitis R foot Wound c/s polymicrobial MRSA/ anaerobe / diphtheroid Continue vancomycin, adjusted for ESRD. Dose at HD for trough < 15. Complete 6 w course D/C zosyn. Substitute po flagyl for treatment of anaerobe Local wound care
[2016-07-08] MEDS: metroNIDAZOLE 250 MG TABLET PO SCH ×2 (13:26→21:55)
--- NOTE | 2016-07-08 13:27 | PN ---
Progress Note (short form) - Note Progress Note: Renal Follow up for ESRD on HD Pt seen and examined during dialysis BP 160/88, UF goal is 3 L pt without complaints no sob or chest pain no fevers Vital Signs Temperature 98.9 F 07/08/16 09:00 Pulse Rate 87 07/08/16 11:22 Respiratory Rate 18 07/08/16 11:22 Blood Pressure 160/75 07/08/16 11:22 O2 Sat by Pulse Oximetry (%) 97 07/07/16 21:00 Intake & Output 07/05/16 07/06/16 07/07/16 07/08/16 23:59 23:59 23:59 23:59 Intake Total 1100 270 760 150 Output Total 30 500 Balance 1070 270 260 150 Gen: NAD, awake and alert HEENT: No JVD CVS: RRR, No M/R Lungs: CTA Abd: soft NT/ND Ext: No edema, clubbing or edema CBC, BMP 07/08/16 07:30 07/08/16 07:30 Current Medications Acetaminophen (Tylenol -) 650 mg PO Q4H PRN PRN Reason: FEVER OR PAIN Last Admin: 07/07/16 13:38 Dose: 650 mg Calcium Acetate (Phoslo -) 667 mg PO TIDCM [facility] Last Admin: 07/08/16 08:21 Dose: Not Given Collagenase (Santyl -) 1 applic TP DAILY [facility] Docusate Sodium (Colace -) 100 mg PO TID [facility] Last Admin: 07/08/16 06:34 Dose: Not Given Heparin Sodium (Porcine) (Heparin -) 5,000 unit SQ BID [facility] Last Admin: 07/08/16 09:21 Dose: Not Given Insulin Aspart (Novolog Vial Sliding Scale -) 1 vial SQ BIDAC [facility] PRN Reason: Protocol Last Admin: 07/08/16 06:19 Dose: Not Given Insulin Detemir (Levemir Vial) 6 units SQ HS [facility] Last Admin: 07/07/16 21:54 Dose: 6 units Metronidazole (Flagyl -) 500 mg PO TID [facility] Minoxidil (Loniten -) 10 mg PO DAILY [facility] Last Admin: 07/08/16 09:20 Dose: Not Given Mupirocin (Bactroban 2% Ointment -) 1 applic TP DAILY [facility] Oxycodone HCl (Roxicodone -) 5 mg PO Q4H PRN PRN Reason: PAIN Last Admin: 07/07/16 13:38 Dose: 5 mg Torsemide (Demadex -) 20 mg PO BIDLASIX [facility] Last Admin: 07/08/16 06:35 Dose: Not Given A/P 55 year old Male with PMhx of ESRD on HD, Hypertension, DM who presented with Fever and LE wound #ESRD on HD tolerating dialysis well #Acute on Chronic Anemia Continue high dose epogen with HD #LE Wound/Infection MRSA in wound cultures VAnco level is 25 today to contineu Vanco with HD for total of 6 weeks as per ID on oral flagyl #Hypertension Hx of refractory Hypertension Continue Minoxidil, Torsemide Cm Torres DO
[2016-07-08] MEDS: COLLAGENASE CLOSTRIDIUM HIST. 30 GRAMS TUBE TP SCH (13:28)
--- NOTE | 2016-07-08 14:42 | PN ---
Physical Exam: SUBJECTIVE: Patient seen and examined at bedside. No overnight events. No new complaints. He does not want to go to rehab he would prefer to go home. Denies CP, MICHAEL, SOB, Abd. pain, N/V. OBJECTIVE: Vital Signs Period Temp Pulse Resp BP Sys/Salas Pulse Ox Last 24 Hr 97.9 F-99.3 F 78-89 16-20 129-175/65-88 97 GENERAL: AAOx3, mild distress HEAD: NC/AT EYES:PERRLA, EOMI, sclera anicteric, conjunctiva clear. No lid lag. EARS, NOSE, THROAT: Ears normal, nares patent, oropharynx clear without exudates. Moist mucous membranes. NECK: Normal range of motion, supple without lymphadenopathy, JVD, or masses. LUNGS:CTAB, No wheezes, and no crackles. No accessory muscle use. HEART:RRR, normal S1 and S2 . ABDOMEN: Soft, NT/ND, BS(+) no guarding, no rebound, no masses. No hepatomegaly or splenomegaly. LOWER EXTREMITIES: 2+ pulses, warm, well-perfused. mild bilat.calf tenderness. No peripheral edema. 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 wound appears clean, no purulent drainage.tenderness to palpation. NEUROLOGICAL: Normal speech. gait not observe Laboratory Results - last 24 hr 07/07/16 07/07/16 07/08/16 17:01 21:58 05:53 WBC RBC Hgb Hct MCV MCHC RDW Plt Count MPV Neutrophils % Lymphocytes % Monocytes % Eosinophils % Basophils % ESR Sodium Potassium Chloride Carbon Dioxide Anion Gap BUN Creatinine POC Glucometer 136 154 130 Random Glucose Calcium Phosphorus Magnesium C-Reactive Protein Random Vancomycin Blood Type Antibody Screen 07/08/16 07/08/16 07/08/16 07:30 07:30 07:30 WBC 13.2 H RBC 2.68 L Hgb 7.5 L Hct 23.4 L MCV 87.4 MCHC 31.8 L RDW 15.5 Plt Count 325 MPV 7.6 Neutrophils % 67.9 Lymphocytes % 15.3 Monocytes % 13.0 H Eosinophils % 2.9 Basophils % 0.9 ESR > 130 H Sodium Potassium Chloride Carbon Dioxide Anion Gap BUN Creatinine POC Glucometer Random Glucose Calcium Phosphorus Magnesium C-Reactive Protein Cancelled Random Vancomycin Blood Type Antibody Screen 07/08/16 07/08/16 07/08/16 07:30 07:30 08:53 WBC RBC Hgb Hct MCV MCHC RDW Plt Count MPV Neutrophils % Lymphocytes % Monocytes % Eosinophils % Basophils % ESR Sodium 133 L Potassium 4.5 Chloride 90 L Carbon Dioxide 27 Anion Gap 16 BUN 42 H D Creatinine 13.2 H* D POC Glucometer Random Glucose 117 H D Calcium 8.2 L Phosphorus 7.4 H Magnesium 2.3 C-Reactive Protein 14.7 H D Random Vancomycin 25.644 Blood Type O POSITIVE Antibody Screen Negative Active Medications Generic Name Dose Route Start Last Admin Trade Name Freq PRN Reason Stop Dose Admin Acetaminophen 650 mg 07/03/16 14:38 07/07/16 13:38 Tylenol - PO 650 mg Q4H PRN Administration FEVER OR PAIN Calcium Acetate 667 mg 07/03/16 17:30 07/08/16 12:26 Phoslo - PO 667 mg TIDCM [facility] Administration Collagenase 1 applic 07/08/16 10:00 07/08/16 13:28 Santyl - TP 1 applic DAILY [facility] Administration Docusate Sodium 100 mg 07/06/16 22:00 07/08/16 13:26 Colace - PO 100 mg TID [facility] Administration Heparin Sodium (Porcine) 5,000 unit 07/03/16 22:00 07/08/16 09:21 Heparin - SQ Not Given BID [facility] Insulin Aspart 1 vial 07/03/16 16:30 07/08/16 06:19 Novolog Vial Sliding Scale - SQ Not Given BIDAC [facility] Protocol Insulin Detemir 6 units 07/03/16 22:00 07/07/16 21:54 Levemir Vial SQ 6 units HS [facility] Administration Metronidazole 500 mg 07/08/16 14:00 07/08/16 13:26 Flagyl - PO 500 mg TID [facility] Administration Minoxidil 10 mg 07/04/16 10:00 07/08/16 13:27 Loniten - PO 10 mg DAILY [facility] Administration Mupirocin 1 applic 07/08/16 10:30 07/08/16 13:27 Bactroban 2% Ointment - TP 1 applic DAILY [facility] Administration Oxycodone HCl 5 mg 07/06/16 17:25 07/07/16 13:38 Roxicodone - PO 5 mg Q4H PRN Administration PAIN Torsemide 20 mg 07/04/16 06:00 07/08/16 13:26 Demadex - PO 20 mg BIDLASIX [facility] Administration ASSESSMENT/PLAN: 55 yo M with significant PMHx. of IDDM, ESRD,HTN and chronic foot ulcers admitted to inpatient service for sepsis secondary to foot ulcer infection and osteomyelitis. Problem List - Problems (1) Sepsis Assessment/Plan: * WBC stable and afebrile overnight. * Osteomyelitis of foot. Will need extended period of IV ABx. * Continue Vanco/Zosyn for MRSA from Intraoperative specimen. * Bone biopsy cultures show strep salivarus * oxycodone prn for pain (2) Wound infection Assessment/Plan: * Continue Vanco/Zosyn as per ID * wound C/D/I * s/p R foot debridement with 4th/5th toe amputation and 4th/5th partial ray resection * Non weight bearing as per podiatry * saline irrigation and moist to dry dressing. * Wound Vac today * Daily wound care. (3) Diabetes mellitus with nephropathy Assessment/Plan: * Renal/ADA diet * ISS AC * BGM ACHS * Levemir 6 Units HS (4) ESRD (end stage renal disease) Assessment/Plan: * Dialyzed yesterday * Continue high dose EPOGEN as per nephro * Renal diet * avoid nephrotoxins. * renal dose meds. * repeat AM labs. (5) HTN (hypertension) Assessment/Plan: * Minoxidil 10mg PO AM * Torsemide 20mgPO * Hold for SBP <90 * followed by Dr. Dueñas in community (6) DVT prophylaxis Assessment/Plan: * Heparin 5000 units BID Visit type - Emergency Visit Emergency Visit: Yes ED Registration Date: 06/27/16 Care time: The patient presented to the Emergency Department on the above date and was hospitalized for further evaluation of their emergent condition. - New Patient This patient is new to me today: No - Critical Care Critical Care patient: No
--- NOTE | 2016-07-08 16:57 | PN ---
Teaching Attending Note Name of Resident: Steven Constantino ATTENDING PHYSICIAN STATEMENT I saw and evaluated the patient. I reviewed the resident's note and discussed the case with the resident. I agree with the resident's findings and plan as documented. SUBJECTIVE: Patient is feeling better, no acute distress, no fever or chills, no shortness of breath. OBJECTIVE: Vital Signs Temperature 98.6 F 07/08/16 14:26 Pulse Rate 83 07/08/16 14:26 Respiratory Rate 16 07/08/16 14:26 Blood Pressure 129/66 07/08/16 14:26 O2 Sat by Pulse Oximetry (%) 97 07/08/16 09:00 CBCD WBC 13.2 K/mm3 (4.0-10.0) H 07/08/16 07:30 RBC 2.68 M/mm3 (4.00-5.60) L 07/08/16 07:30 Hgb 7.5 GM/dL (11.7-16.9) L 07/08/16 07:30 Hct 23.4 % (35.4-49) L 07/08/16 07:30 MCV 87.4 fl (80-96) 07/08/16 07:30 MCHC 31.8 g/dl (32.0-35.9) L 07/08/16 07:30 RDW 15.5 % (11.9-15.9) 07/08/16 07:30 Plt Count 325 K/MM3 (134-434) 07/08/16 07:30 MPV 7.6 fl (7.5-11.1) 07/08/16 07:30 CMP Sodium 133 mmol/L (136-145) L 07/08/16 07:30 Potassium 4.5 mmol/L (3.5-5.1) 07/08/16 07:30 Chloride 90 mmol/L (98-107) L 07/08/16 07:30 Carbon Dioxide 27 mmol/L (21-32) 07/08/16 07:30 Anion Gap 16 (8-16) 07/08/16 07:30 BUN 42 mg/dL (7-18) H D 07/08/16 07:30 Creatinine 13.2 mg/dL (0.7-1.3) H* D 07/08/16 07:30 Creat Clearance w eGFR 3.21 (>60) 07/06/16 10:50 Random Glucose 117 mg/dL (74-106) H D 07/08/16 07:30 Calcium 8.2 mg/dL (8.5-10.1) L 07/08/16 07:30 Total Bilirubin 0.5 mg/dL (0.2-1.0) 07/06/16 10:50 AST 17 U/L (15-37) D 07/06/16 10:50 ALT 22 U/L (12-78) D 07/06/16 10:50 Alkaline Phosphatase 90 U/L (45-117) 07/06/16 10:50 Total Protein 7.1 g/dl (6.4-8.2) 07/06/16 10:50 Albumin 2.2 g/dl (3.4-5.0) L 07/06/16 10:50 Current Medications Generic Name Dose Route Start Last Admin Trade Name Freq PRN Reason Stop Dose Admin Acetaminophen 650 mg 07/03/16 14:38 07/07/16 13:38 Tylenol - PO 650 mg Q4H PRN Administration FEVER OR PAIN Calcium Acetate 667 mg 07/03/16 17:30 07/08/16 12:26 Phoslo - PO 667 mg TIDCM [facility] Administration Collagenase 1 applic 07/08/16 10:00 07/08/16 13:28 Santyl - TP 1 applic DAILY [facility] Administration Docusate Sodium 100 mg 07/06/16 22:00 07/08/16 13:26 Colace - PO 100 mg TID [facility] Administration Heparin Sodium (Porcine) 5,000 unit 07/03/16 22:00 07/08/16 09:21 Heparin - SQ Not Given BID [facility] Insulin Aspart 1 vial 07/03/16 16:30 07/08/16 06:19 Novolog Vial Sliding Scale - SQ Not Given BIDAC [facility] Protocol Insulin Detemir 6 units 07/03/16 22:00 07/07/16 21:54 Levemir Vial SQ 6 units HS [facility] Administration Metronidazole 500 mg 07/08/16 14:00 07/08/16 13:26 Flagyl - PO 500 mg TID [facility] Administration Minoxidil 10 mg 07/04/16 10:00 07/08/16 13:27 Loniten - PO 10 mg DAILY [facility] Administration Mupirocin 1 applic 07/08/16 10:30 07/08/16 13:27 Bactroban 2% Ointment - TP 1 applic DAILY [facility] Administration Oxycodone HCl 5 mg 07/06/16 17:25 07/07/16 13:38 Roxicodone - PO 5 mg Q4H PRN Administration PAIN Torsemide 20 mg 07/04/16 06:00 07/08/16 13:26 Demadex - PO 20 mg BIDLASIX [facility] Administration Home Medications Medication Instructions Recorded Calcium Acetate [Phoslo -] 1 tab PO TID 06/30/15 Mupirocin Ointment [Bactroban 2% 1 applic TP BID #1 applic 12/08/15 Ointment -] Torsemide 20 mg PO BID 12/08/15 Minoxidil 10 mg PO DAILY 02/23/16 Insulin Lispro [Humalog] 100 unit SQ HS 06/27/16 Microbiology 07/01/16 07:10 Blood - Pre-Dialysis Blood Culture - Final NO GROWTH AFTER 5 DAYS INCUBATION 07/01/16 07:40 Blood - Pre-Dialysis Blood Culture - Final NO GROWTH AFTER 5 DAYS INCUBATION 06/29/16 14:16 Bone Gram Stain - Final 06/29/16 14:16 Bone Tissue Culture - Final Mr S Aureus Streptococcus Salivarius 06/29/16 14:16 Bone Anaerobic Culture - Final NO ANAEROBES WERE ISOLATED 06/29/16 13:30 Tissue-Other Gram Stain - Final 06/29/16 13:30 Tissue-Other Tissue Culture - Preliminary Mr S Aureus Diphtheroid/Corynebacterium Streptococcus Salivarius 06/29/16 13:30 Tissue-Other Anaerobic Culture - Final NO ANAEROBES WERE ISOLATED 06/27/16 13:25 Blood - Peripheral Venous Blood Culture - Final NO GROWTH AFTER 5 DAYS INCUBATION 06/27/16 12:55 Blood - Peripheral Venous Blood Culture - Final NO GROWTH AFTER 5 DAYS INCUBATION 06/27/16 12:55 Nasopharyngeal Swab Respiratory Virus Panel - Final 06/28/16 11:30 Toe - Left Hallux Gram Stain - Final 06/28/16 11:30 Toe - Left Hallux Wound Culture - Final Mr S Aureus Anaerococcus Prevotii 06/27/16 13:34 Wound-Other Gram Stain - Final 06/27/16 13:34 Wound-Other Wound Culture - Final Mr S Aureus Diphtheroid/Corynebacterium 06/27/16 12:55 Nasopharyngeal Swab Influenza Types A,B Antigen (JUDE) - Final 06/27/16 12:55 Nasopharyngeal Swab - Final Blood Cx: no growth x 5 days Bone Cx: MRSA, strep salivarius Laboratory Tests 06/27/16 06/27/16 06/28/16 12:55 20:25 06:30 WBC 20.0 H D 17.7 H 17.7 H ESR C-Reactive Protein 06/29/16 06/30/16 07/01/16 06:50 06:50 06:30 WBC 17.9 H 16.8 H 17.2 H ESR C-Reactive Protein 07/02/16 07/03/16 07/04/16 06:30 07:10 07:00 WBC 15.4 H 16.5 H 16.2 H ESR C-Reactive Protein 07/05/16 07/05/16 07/06/16 06:30 16:00 10:50 WBC 16.4 H 15.0 H ESR > 130 H C-Reactive Protein 07/06/16 07/07/16 07/08/16 10:50 07:00 07:30 WBC 13.2 H ESR > 130 H C-Reactive Protein 15.2 H D 07/08/16 07/08/16 07:30 07:30 WBC 13.2 H ESR C-Reactive Protein 14.7 H D ASSESSMENT AND PLAN: 55 y/o man with h/o HTN, ESRD adn IDDm who is being treated for sepsis from infected wounds on feet and OM of Right 4th metatarsal head . # s/p Sepsis due OM of right foot s/p Right foot debridement x 2 with 4th/5th toe amputation and 4th/5th metatarsal head resection; leukocytosis improving. - repeat ESR > 130 (no change) and CRP is 15.2--> 14.7 , cont vanco as per ID , dc IV zosyn, po Flagyl for treatment of Anaerobe, therefore patient doesn't need PICC line since VAncomycin can be given POst HD for trough < 15 ; Complete 6 week course, . As per electric trucker: Saline irrigation at bedside with saline wet to dry dressing, Non-WB R foot, santyl and wound VAC tomorrow if wound looks clean. Will check with the [facility] in am if ok will discharge the patient home. Also will discuss with scale shooter. # HTN cont minoxidil . # ESRD: cont HD (TTS) # IDDM : cont levemir and SSi possible discharge to rehab. will discuss [facility] and scale shooter the discharge plan.
[2016-07-08] MEDS: oxyCODONE HCL 5 MG TABLET PO PRN (17:19)
[2016-07-08] MEDS: ACETAMINOPHEN 325 MG TABLET (FP) PO PRN (17:20)
[2016-07-08] MEDS: INSULIN DETEMIR 100 UNITS/ML MDV SQ SCH (21:56)
[2016-07-09] MEDS: INSULIN SLIDING SCALE (NOVOLOG) 1 VIAL SQ SCH (05:59)
[2016-07-09] MEDS: DOCUSATE SODIUM 100 MG CAPSULE (FP) PO SCH ×2 (06:00→13:20)
[2016-07-09] MEDS: metroNIDAZOLE 250 MG TABLET PO SCH ×2 (06:00→13:20)
[2016-07-09] MEDS: TORSEMIDE 20 MG TABLET (FP) PO SCH ×2 (06:00→13:20)
[2016-07-09 08:07] LABS: BASOPHIL 0.8 % (0-2.0); EOSINOPHIL 2.6 % (0-4.5); MCH 28.3 pg (25.7-33.7); MEAN CELL VOLUME 88.3 fl (80-96); MEAN PLT VOLUME 7.6 fl (7.5-11.1); NEUTROPHILS 69.4 % (42.8-82.8); PLATELET COUNT 375 K/MM3 (134-434); RDW 15.9 % (11.9-15.9); WHITE BLOOD COUNT 12.8 K/mm3 (4.0-10.0)
[2016-07-09 08:43] LABS: CALCIUM 8.4 mg/dL (8.5-10.1)
[2016-07-09 08:57] LABS: ALBUMIN 2.4 g/dl (3.4-5.0); BILIRUBIN,TOTAL 0.5 mg/dL (0.2-1.0); COCKROFT - GAULT 10.47; TOT PROT 7.7 g/dl (6.4-8.2)
[2016-07-09 09:01] LABS: CREATININE 10.2 mg/dL (0.7-1.3)
[2016-07-09] MEDS ORDERED: PT OWN MED DRAWER 7, Y5N ONE (09:32)
[2016-07-09] MEDS: HEPARIN NA (PORCINE) 5,000 UNITS/ML 1ML VIAL SQ SCH (09:33)
[2016-07-09] MEDS: CALCIUM ACETATE 667 MG CAPSULE (FP) PO SCH ×2 (09:34→13:20)
[2016-07-09] MEDS: MINOXIDIL 10 MG TABLET PO SCH (09:34)
[2016-07-09] MEDS: MUPIROCIN 2% TOPICAL OINTMENT 22 GM TUBE TP SCH (09:36)
[2016-07-09] MEDS: COLLAGENASE CLOSTRIDIUM HIST. 30 GRAMS TUBE TP SCH (09:36)
[2016-07-09 10:59] VITALS: PULSE 88
[2016-07-09 14:26] VITALS: BP 131/66; TEMP 98
--- NOTE | 2016-07-09 14:43 | PN ---
Progress Note (short form) - Note Progress Note: Podiatry F/u: Seen and evaluated at bedside, NAD. Pain well controlled, denies F/V/N/C/SOB/ CP. S/p R 4th/5th toe amputation, 4th/5th met head resection for severe DM infection. Fevers rectified, currently afebrile, VSS. ABDIAS: R foot: post-surgical wound 4th/5th rays with mixed fibrogranular base, small areas of necrosis, no purulence, no fluctuance, no surrounding erythema, no soft tissue crepitus, no ascending cellulitis, no signs of active infection. Minimal tenderness to palpation. WBC: 12.8 ESR: 130 Blood Cx: no growth x 5 days OR Bone Cx: MRSA, strep salivarius Imp: 55 year old IDDM M s/p R 4th/5th toe amputation and 4th/5th partial ray resection for severe DM foot infection. 1. terminal carman abx, Vanco IV in HD and PO flagyl for treatment of osteomyelitis 2. Non-WB R foot with crutches 3. Wound care with santyl + VAC therapy, medium granufoam set at 125 mmHg continuous, to change every third day 4. Discussed at length with patient and his girlfriend about discharging options. Based on his circumstances, I strongly advised patient's discharge to SNF and he is in agreement. 5. Plan for d/c to [facility], [facility], for on-site dialysis, Abx therapy and wound care with VAC therapy 6. Upon discharge, will follow up with me on 07/13/16, at [facility] Mel Almanzar DPM
--- NOTE | 2016-07-09 15:14 | DS ---
Physical Exam: SUBJECTIVE: Patient seen and examined at bedside. No new complaints. No overnight events. Pain well controlled. Denies CP,MICHAEL,SOB, Abd. pain, n/v. OBJECTIVE: Vital Signs Period Temp Pulse Resp BP Sys/Salas Pulse Ox Last 24 Hr 98.0 F-99.5 F 85-88 18-18 131-153/63-73 98-98 PHYSICAL EXAM GENERAL: AAOx3, mild distress HEAD: NC/AT EYES:PERRLA, EOMI, sclera anicteric, conjunctiva clear. No lid lag. EARS, NOSE, THROAT: Ears normal, nares patent, oropharynx clear without exudates. Moist mucous membranes. NECK: Normal range of motion, supple without lymphadenopathy, JVD, or masses. LUNGS:CTAB, No wheezes, and no crackles. No accessory muscle use. HEART:RRR, normal S1 and S2 . ABDOMEN: Soft, NT/ND, BS(+) no guarding, no rebound, no masses. No hepatomegaly or splenomegaly. LOWER EXTREMITIES: 2+ pulses, warm, well-perfused. mild bilat.calf tenderness. No peripheral edema. 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 wound appears clean, no purulent drainage.tenderness to palpation. NEUROLOGICAL: Normal speech. gait not observe LABS Laboratory Results - last 24 hr 07/08/16 07/08/16 07/09/16 17:26 21:53 05:52 WBC RBC Hgb Hct MCV MCHC RDW Plt Count MPV Neutrophils % Lymphocytes % Monocytes % Eosinophils % Basophils % Sodium Potassium Chloride Carbon Dioxide Anion Gap BUN Creatinine Creat Clearance w eGFR POC Glucometer 129 169 137 Random Glucose Calcium Total Bilirubin AST ALT Alkaline Phosphatase Total Protein Albumin Random Vancomycin 07/09/16 07/09/16 06:30 06:30 WBC 12.8 H RBC 2.92 L Hgb 8.2 L Hct 25.8 L MCV 88.3 MCHC 32.0 RDW 15.9 Plt Count 375 MPV 7.6 Neutrophils % 69.4 Lymphocytes % 14.7 Monocytes % 12.5 H Eosinophils % 2.6 Basophils % 0.8 Sodium 135 L Potassium 4.5 Chloride 91 L Carbon Dioxide 31 Anion Gap 13 BUN 31 H D Creatinine 10.2 H* D Creat Clearance w eGFR 5.32 POC Glucometer Random Glucose 123 H Calcium 8.4 L Total Bilirubin 0.5 AST 21 D ALT 19 Alkaline Phosphatase 96 Total Protein 7.7 Albumin 2.4 L Random Vancomycin 17.902 IMAGING: * MRI/LOWER EXTREMITY MRI W/O CONTR MRI of the right foot. Clinical information : Cellulitis. Rule out osteomyelitis. Sagittal coronal and axial T1 and T2- weighted images of the right foot were obtained. There is extensive soft tissue swelling of the foot and is related to cellulitis. No soft tissue abscess is identified. There is edema of the bone marrow of the head of the fourth metatarsal suspicious for osteomyelitis. There are no other bony lesions. There is no disruption of the flexor or extensor tendons. Impression: Extensive cellulitis of the foot with osteomyelitis of the head of the fourth metatarsal. There is no soft tissue abscess. Reported By: Sunil Garza MD 06/28/16 2213 Microbiology 07/01/16 07:10 Blood - Pre-Dialysis Blood Culture - Final NO GROWTH AFTER 5 DAYS INCUBATION 07/01/16 07:40 Blood - Pre-Dialysis Blood Culture - Final NO GROWTH AFTER 5 DAYS INCUBATION 06/29/16 14:16 Bone Gram Stain - Final 06/29/16 14:16 Bone Tissue Culture - Final Mr S Aureus Streptococcus Salivarius 06/29/16 14:16 Bone Anaerobic Culture - Final NO ANAEROBES WERE ISOLATED 06/29/16 13:30 Tissue-Other Gram Stain - Final 06/29/16 13:30 Tissue-Other Tissue Culture - Preliminary Mr S Aureus Diphtheroid/Corynebacterium Streptococcus Salivarius 06/29/16 13:30 Tissue-Other Anaerobic Culture - Final NO ANAEROBES WERE ISOLATED 06/27/16 13:25 Blood - Peripheral Venous Blood Culture - Final NO GROWTH AFTER 5 DAYS INCUBATION 06/27/16 12:55 Blood - Peripheral Venous Blood Culture - Final NO GROWTH AFTER 5 DAYS INCUBATION 06/27/16 12:55 Nasopharyngeal Swab Respiratory Virus Panel - Final 06/28/16 11:30 Toe - Left Hallux Gram Stain - Final 06/28/16 11:30 Toe - Left Hallux Wound Culture - Final Mr S Aureus Anaerococcus Prevotii 06/27/16 13:34 Wound-Other Gram Stain - Final 06/27/16 13:34 Wound-Other Wound Culture - Final Mr S Aureus Diphtheroid/Corynebacterium 06/27/16 12:55 Nasopharyngeal Swab Influenza Types A,B Antigen (JUDE) - Final 06/27/16 12:55 Nasopharyngeal Swab - Final HOSPITAL COURSE: 55 yo M with significant PMHx. of IDDM, ESRD,HTN and chronic foot ulcers admitted to inpatient service for sepsis secondary to right foot ulcer infection and osteomyelitis. He was started on Vanco and Zosyn initially. Taken to OR for excisional debridement of ulcer x 2. R foot debridement and lavage. R 4th metatarsal resection with bone biopsy which reveled extensive liquefactive tissue with thrombosed vessels, purulence from 4th interspace, however continued to spike fevers and WBC. Taken back to OR for R foot debridement with 4th/5th toe amputation and 4th/5th partial ray resection. Switched to Rocephin based on cultures and sensitivity. WBC trended down and remained afebrile. Wound vac and picc line for 8 weeks IV abx. Follow up with Dr. Almanzar for wound care and HBO. For his ESRD patient was dialyzed tue, , tue and medications renally dosed. Hypertension was controlled with minoxidil. Renal/ADA diet and ISS for his DM. Heparin SQ for DVT prophylaxis. Resume home meds upon discharge to SNF. Patient stable for discharge to SNF. Date of Admission:06/27/16 Date of Discharge: 07/09/16 Minutes to complete discharge: 55 Discharge Summary Reason For Visit: SEPSIS WOUND INFECTION Current Active Problems DVT prophylaxis (Acute) Hyponatremia (Acute) Sepsis (Acute) Ulcer of right foot (Acute) Wound infection (Acute) Condition: Stable - Instructions Diet, Activity, Other Instructions: You are being discharged to [facility] rehab for care. They will be made aware of all you medical needs as far as antibiotics and wound care. Dialysis will remain as scheduled. Home medications will be continued. Renal and diabetic diet will be continued. Non-weight bearing on right foot as instructed by Dr. Almanzar. Follow up with him upon discharge from [facility] [place] [facility]. Referrals: Vazquez Almanzar MD [Staff Physician] - Cm Torres MD [Staff Physician] - Disposition: [facility] - Home Medications Comprehensive Discharge Medication List: Ambulatory Orders Calcium Acetate [Phoslo -] 1 tab PO TID 06/30/15 Mupirocin Ointment [Bactroban 2% Ointment -] 1 applic TP BID #1 applic 12/08/15 Torsemide 20 mg PO BID 12/08/15 Minoxidil 10 mg PO DAILY 02/23/16 Insulin Lispro [Humalog] 100 unit SQ HS 06/27/16 Acetaminophen [Tylenol .Regular Strength -] 650 mg PO Q4H PRN #0 tablet Heparin - 5,000 unit SQ BID vial 07/09/16 Metronidazole [Flagyl -] 500 mg PO TID tablet 07/09/16 Mupirocin Ointment [Bactroban 2% Ointment -] 1 applic TP DAILY applic 07/09/16 Oxycodone HCl [Roxicodone -] 5 mg PO Q4H PRN #0 tablet MDD 6 07/09/16 Vancomycin 1 gm Premix - 1 gm IV DAILY 30 Days 07/09/16 Problem List - Problems (1) Sepsis (2) Wound infection (3) Diabetes mellitus with nephropathy (4) ESRD (end stage renal disease) (5) HTN (hypertension) (6) DVT prophylaxis This patient is new to me today: No Emergency Visit: Yes ED Registration Date: 06/27/16 Care time: The patient presented to the Emergency Department on the above date and was hospitalized for further evaluation of their emergent condition. Critical Care patient: No - Discharge Referral Referred to [facility] No
--- NOTE | 2016-07-09 15:30 | PN ---
Teaching Attending Note Name of Resident: Steven Constantino ATTENDING PHYSICIAN STATEMENT I saw and evaluated the patient. I reviewed the resident's note and discussed the case with the resident. I agree with the resident's findings and plan as documented. SUBJECTIVE: Patient is feeling better, no fever or chills, no shortness of breath. OBJECTIVE: Vital Signs Temperature 98.0 F 07/09/16 14:24 Pulse Rate 88 07/09/16 14:24 Respiratory Rate 18 07/09/16 14:24 Blood Pressure 131/66 07/09/16 14:24 O2 Sat by Pulse Oximetry (%) 98 07/09/16 09:00 CBCD WBC 12.8 K/mm3 (4.0-10.0) H 07/09/16 06:30 RBC 2.92 M/mm3 (4.00-5.60) L 07/09/16 06:30 Hgb 8.2 GM/dL (11.7-16.9) L 07/09/16 06:30 Hct 25.8 % (35.4-49) L 07/09/16 06:30 MCV 88.3 fl (80-96) 07/09/16 06:30 MCHC 32.0 g/dl (32.0-35.9) 07/09/16 06:30 RDW 15.9 % (11.9-15.9) 07/09/16 06:30 Plt Count 375 K/MM3 (134-434) 07/09/16 06:30 MPV 7.6 fl (7.5-11.1) 07/09/16 06:30 CMP Sodium 135 mmol/L (136-145) L 07/09/16 06:30 Potassium 4.5 mmol/L (3.5-5.1) 07/09/16 06:30 Chloride 91 mmol/L (98-107) L 07/09/16 06:30 Carbon Dioxide 31 mmol/L (21-32) 07/09/16 06:30 Anion Gap 13 (8-16) 07/09/16 06:30 BUN 31 mg/dL (7-18) H D 07/09/16 06:30 Creatinine 10.2 mg/dL (0.7-1.3) H* D 07/09/16 06:30 Creat Clearance w eGFR 5.32 (>60) 07/09/16 06:30 Random Glucose 123 mg/dL (74-106) H 07/09/16 06:30 Calcium 8.4 mg/dL (8.5-10.1) L 07/09/16 06:30 Total Bilirubin 0.5 mg/dL (0.2-1.0) 07/09/16 06:30 AST 21 U/L (15-37) D 07/09/16 06:30 ALT 19 U/L (12-78) 07/09/16 06:30 Alkaline Phosphatase 96 U/L (45-117) 07/09/16 06:30 Total Protein 7.7 g/dl (6.4-8.2) 07/09/16 06:30 Albumin 2.4 g/dl (3.4-5.0) L 07/09/16 06:30 Current Medications Generic Name Dose Route Start Last Admin Trade Name Freq PRN Reason Stop Dose Admin Acetaminophen 650 mg 07/03/16 14:38 07/08/16 17:20 Tylenol - PO 650 mg Q4H PRN Administration FEVER OR PAIN Calcium Acetate 667 mg 07/03/16 17:30 07/09/16 13:20 Phoslo - PO 667 mg TIDCM MONIK Administration Collagenase 1 applic 07/08/16 10:00 07/09/16 09:36 Santyl - TP 1 applic DAILY MONIK Administration Docusate Sodium 100 mg 07/06/16 22:00 07/09/16 13:20 Colace - PO 100 mg TID MONIK Administration Heparin Sodium (Porcine) 5,000 unit 07/03/16 22:00 07/09/16 09:33 Heparin - SQ 5,000 unit BID MONIK Administration Insulin Aspart 1 vial 07/03/16 16:30 07/09/16 05:59 Novolog Vial Sliding Scale - SQ Not Given BIDAC [facility] Protocol Insulin Detemir 6 units 07/03/16 22:00 07/08/16 21:56 Levemir Vial SQ 6 units HS MONIK Administration Metronidazole 500 mg 07/08/16 14:00 07/09/16 13:20 Flagyl - PO 500 mg TID MONIK Administration Minoxidil 10 mg 07/04/16 10:00 07/09/16 09:34 Loniten - PO 10 mg DAILY MONIK Administration Mupirocin 1 applic 07/08/16 10:30 07/09/16 09:36 Bactroban 2% Ointment - TP 1 applic DAILY MONIK Administration Oxycodone HCl 5 mg 07/06/16 17:25 07/08/16 17:19 Roxicodone - PO 5 mg Q4H PRN Administration PAIN Torsemide 20 mg 07/04/16 06:00 07/09/16 13:20 Demadex - PO 20 mg BIDLASIX MONIK Administration Home Medications Medication Instructions Recorded Calcium Acetate [Phoslo -] 1 tab PO TID 06/30/15 Mupirocin Ointment [Bactroban 2% 1 applic TP BID #1 applic 12/08/15 Ointment -] Torsemide 20 mg PO BID 12/08/15 Minoxidil 10 mg PO DAILY 02/23/16 Insulin Lispro [Humalog] 100 unit SQ HS 06/27/16 Acetaminophen [Tylenol .Regular 650 mg PO Q4H PRN #0 tablet 07/09/16 Strength -] Heparin - 5,000 unit SQ BID vial 07/09/16 Metronidazole [Flagyl -] 500 mg PO TID tablet 07/09/16 Mupirocin Ointment [Bactroban 2% 1 applic TP DAILY applic 07/09/16 Ointment -] Oxycodone HCl [Roxicodone -] 5 mg PO Q4H PRN #0 tablet MDD 6 07/09/16 Vancomycin 1 gm Premix - 1 gm IV DAILY 30 Days 07/09/16 PE: as per resident's note ASSESSMENT AND PLAN: 55 y/o man with h/o HTN, ESRD adn IDDm who is being treated for sepsis from infected wounds on feet and OM of Right 4th metatarsal head . # s/p Sepsis due Osteomyelitis of right foot s/p Right foot debridement x 2 with 4th/5th toe amputation and 4th/5th metatarsal head resection; leukocytosis improving, levels are trending down.Repeat ESR > 130 (no change) and CRP is 15.2 --> 14.7 (might take long time to go down, but leukocytosis is trending down. Cont vancomycin to be given HD days adjusted for ESRD as per ID , Dose at HD for trough < 15. Complete 6 w course of Antibiotic , po Flagyl for treatment of Anaerobe . As per technical publications writer: Saline irrigation at bedside with saline wet to dry dressing, Non-WB R foot, santyl and wound VAC to be done in the rehab center. # HTN cont minoxidil . # ESRD: cont HD (TTS) # IDDM : cont levemir and SSi Continue meds. follow with in the wound care clinic by this Tuesday the .
--- NOTE | 2016-07-09 16:18 | PN ---
Progress Note (short form) - Note Progress Note: Renal Follow up for ESRD on HD Pt seen and examined at the bedside no acute complaints for discharge today Vital Signs Temperature 98.0 F 07/09/16 14:24 Pulse Rate 88 07/09/16 14:24 Respiratory Rate 18 07/09/16 14:24 Blood Pressure 131/66 07/09/16 14:24 O2 Sat by Pulse Oximetry (%) 98 07/09/16 09:00 Intake & Output 07/06/16 07/07/16 07/08/16 07/09/16 23:59 23:59 23:59 23:59 Intake Total 270 760 910 100 Output Total 500 Balance 270 260 910 100 Gen: NAD, awake and alert HEENT: No JVD CVS: RRR, No M/R Lungs: CTA Abd: soft NT/ND Ext: No edema, clubbing or edema CBC, BMP 07/09/16 06:30 07/09/16 06:30 Laboratory Tests 07/09/16 06:30 Random Vancomycin 17.902 Current Medications Acetaminophen (Tylenol -) 650 mg PO Q4H PRN PRN Reason: FEVER OR PAIN Last Admin: 07/08/16 17:20 Dose: 650 mg Calcium Acetate (Phoslo -) 667 mg PO TIDCM [facility] Last Admin: 07/09/16 13:20 Dose: 667 mg Collagenase (Santyl -) 1 applic TP DAILY [facility] Last Admin: 07/09/16 09:36 Dose: 1 applic Docusate Sodium (Colace -) 100 mg PO TID [facility] Last Admin: 07/09/16 13:20 Dose: 100 mg Heparin Sodium (Porcine) (Heparin -) 5,000 unit SQ BID [facility] Last Admin: 07/09/16 09:33 Dose: 5,000 unit Insulin Aspart (Novolog Vial Sliding Scale -) 1 vial SQ BIDAC [facility] PRN Reason: Protocol Last Admin: 07/09/16 05:59 Dose: Not Given Insulin Detemir (Levemir Vial) 6 units SQ HS [facility] Last Admin: 07/08/16 21:56 Dose: 6 units Metronidazole (Flagyl -) 500 mg PO TID [facility] Last Admin: 07/09/16 13:20 Dose: 500 mg Minoxidil (Loniten -) 10 mg PO DAILY [facility] Last Admin: 07/09/16 09:34 Dose: 10 mg Mupirocin (Bactroban 2% Ointment -) 1 applic TP DAILY [facility] Last Admin: 07/09/16 09:36 Dose: 1 applic Oxycodone HCl (Roxicodone -) 5 mg PO Q4H PRN PRN Reason: PAIN Last Admin: 07/08/16 17:19 Dose: 5 mg Torsemide (Demadex -) 20 mg PO BIDLASIX [facility] Last Admin: 07/09/16 13:20 Dose: 20 mg A/P 55 year old Male with PMhx of ESRD on HD, Hypertension, DM who presented with Fever and LE wound #ESRD on HD next dialysis tomorrow as outpatient #Acute on Chronic Anemia Continue high dose epogen with HD #LE Wound/Infection/Osteomyltiis Continue Vanco with HD for total of 6 weeks #Hypertension Hx of refractory Hypertension Continue Minoxidil, Torsemide Cm Torres DO
== END 2016-07-09 17:14 | DRG 853 ==
LOC: JER 12:06 → JERBED 15:39 → J8W 17:32
PROVIDERS: ADMIT Internal Medicine; ATTEND Internal Medicine
PROC: 0S9Q0ZZ Drainage of Left Toe Phalangeal Joint, Open Approach (ICD-10-PCS; 2016-06-28)
PROC: 5A1D60Z (ICD-10-PCS; 2016-06-28)
PROC: 0JBR0ZZ Excision of Left Foot Subcutaneous Tissue and Fascia, Open Approach (ICD-10-PCS; 2016-06-29)
PROC: 0KBV0ZZ Excision of Right Foot Muscle, Open Approach (ICD-10-PCS; 2016-06-29)
PROC: 0Y6V0Z3 Detachment at Right 4th Toe, Low, Open Approach (ICD-10-PCS; 2016-06-29)
PROC: 0Y6X0Z1 Detachment at Right 5th Toe, High, Open Approach (ICD-10-PCS; 2016-07-03)
PROC: 0QBN0ZZ Excision of Right Metatarsal, Open Approach (ICD-10-PCS; 2016-07-03)
PROC: 0Y6V0Z1 Detachment at Right 4th Toe, High, Open Approach (ICD-10-PCS; principal; 2016-07-03 12:00)
DX: A41.9 Sepsis, unspecified organism (principal); N18.6 End stage renal disease; L97.429 Non-pressure chronic ulcer of left heel and midfoot with unspecified severity; L97.419 Non-pressure chronic ulcer of right heel and midfoot with unspecified severity; I12.0 Hypertensive chronic kidney disease with stage 5 chronic kidney disease or end stage renal disease; L02.612 Cutaneous abscess of left foot; M86.171 Other acute osteomyelitis, right ankle and foot; E11.621 Type 2 diabetes mellitus with foot ulcer; Z79.4 Long term (current) use of insulin; D63.1 Anemia in chronic kidney disease; E11.22 Type 2 diabetes mellitus with diabetic chronic kidney disease; Z99.2 Dependence on renal dialysis; E11.42 Type 2 diabetes mellitus with diabetic polyneuropathy; E11.69 Type 2 diabetes mellitus with other specified complication; B95.62 Methicillin resistant Staphylococcus aureus infection as the cause of diseases classified elsewhere; L08.89 Other specified local infections of the skin and subcutaneous tissue
CPT/HCPCS: 36415; 71020-TC; 73630-TC-LT; 73630-TC-RT; 73718-TC; 80048; 80053; 81003; 81015; 82565; 83605; 83735; 84100; 84520; 85025; 85610; 85651; 85730; 86140; 86704; 86706; 86708; 86803; 86850; 86900; 86901; 87040; 87070; 87075; 87186; 87205; 87254; 87340; 87804; 88304-TC; 88305-TC; 88311-TC; 93005; 93010; 94760; 97116-GP; 97161-GP; 99285-25; G0480; J0885; J1644

== ENCOUNTER 2016-07-20 13:14 | Inpatient (IN) | payer OTHER ==
[2016-07-20 13:24] VITALS: BMI 28.7
--- NOTE | 2016-07-20 13:33 | PDOC ---
History of Present Illness - General History Source: Patient Exam Limitations: No Limitations <Laurel Cruz - Last Filed: 07/20/16 17:35> - General History Source: Patient, Care Provider Exam Limitations: No Limitations - History of Present Illness Initial Comments: 07/20/16 14:47 The patient is a 55 year old male, with significant past medical history of right 4th and 5th toe amputation (07/03/16), ESRD (on dialysis Tuesday// Tuesday), IDDM, who was sent into the ER today by Dr. Almanzar after his dialysis. Dr. Almanzar was concerned that the toes of the RLE were dark in color and advised the patient to come in for a CTA. The patient states that there is no associated pain, but feels stiffness. The patient is ambulatory with crutches, but also uses wheelchair. Denies fever, chills, nausea, vomiting. Allergies: none reported PCP- just switched to Dr. Gonzalez but has not seen him yet. Cup Machine Operator: Dr. Sarah Marks Fast Food Shift Lead: Dr. Dueñas <Stephanie King - Last Filed: 07/20/16 18:38> - General Chief Complaint: Wound Infection Stated Complaint: PAIN Time Seen by Provider: 07/20/16 13:31 Past History - Past Medical History Anemia: No Dementia: Yes Diabetes: Yes Dialysis: Yes () HTN: Yes Hypercholesterolemia: Yes - Surgical History Abdominal Surgery: Yes (childhood) Orthopedic Surgery: (fingers) - Immunization History Td Vaccination: No Immunization Up to Date: Yes - Psycho/Social/Smoking Cessation Hx Anxiety: No Suicidal Ideation: No Smoking Status: No Smoking History: Never smoked Have you smoked in the past 12 months: No Number of Cigarettes Smoked Daily: 0 Cigars Per Day: 0 Information on smoking cessation initiated: No Hx Alcohol Use: No Drug/Substance Use Hx: No Substance Use Type: None Hx Substance Use Treatment: No <Laurel Cruz - Last Filed: 07/20/16 17:35> <Stephanie King - Last Filed: 07/20/16 18:38> - Past Medical History Allergies/Adverse Reactions: Allergies Allergy/AdvReac Type Severity Reaction Status Date / Time No Known Drug Allergies Allergy Verified 07/20/16 13:24 Home Medications: Ambulatory Orders Torsemide 20 mg PO BID 12/08/15 Minoxidil 10 mg PO DAILY 02/23/16 Insulin Lispro [Humalog] 6 unit SQ HS 06/27/16 Acetaminophen [Tylenol .Regular Strength -] 650 mg PO Q4H PRN #0 tablet Vancomycin 1 gm Premix - 1 gm IV DAILY 30 Days 07/09/16 Review of Systems - Review of Systems Able to Perform ROS?: Yes Comments:: 07/20/16 14:49 GENERAL/CONSTITUTIONAL: No: fever, chills, weakness, loss of appetite. HEAD, EYES, EARS, NOSE AND THROAT: No: change in vision, ear pain, discharge, sore throat, throat swelling. CARDIOVASCULAR: No: chest pain, lightheadedness, palpitations, syncope RESPIRATORY: No: cough, shortness of breath, wheezing, hemoptysis, stridor. GASTROINTESTINAL: No: nausea, vomiting, abdominal cramping, diarrhea, rectal bleeding, constipation. GENITOURINARY: No: dysuria, hematuria, frequency, urgency, flank pain. MUSCULOSKELETAL: +stiffness of the toes of the RLE. No: back pain, neck pain, joint pain, muscle swelling or pain SKIN: No: lesions, pallor, rash or easy bruising. NEUROLOGIC: No: headache, vertigo, paresthesias, weakness ENDOCRINE: No: unexplained weight gain or loss HEMATOLOGIC/LYMPHATIC: No: anemia, easy bleeding, swelling nodes <Stephanie King - Last Filed: 07/20/16 18:38> *Physical Exam - Vital Signs Last Vital Signs Temp Pulse Resp BP Pulse Ox 98.1 F 74 18 181/79 100 07/20/16 13:20 07/20/16 13:20 07/20/16 13:20 07/20/16 13:20 07/20/16 13:20 <Laurel Cruz - Last Filed: 07/20/16 17:35> - Vital Signs Last Vital Signs Temp Pulse Resp BP Pulse Ox 98.1 F 74 18 181/79 100 07/20/16 13:20 07/20/16 13:20 07/20/16 13:20 07/20/16 13:20 07/20/16 13:20 - Physical Exam Comments: 07/20/16 14:50 GENERAL: The patient is in no acute distress. HEAD: Normal with no signs of trauma. EYES: PERRLA, EOMI, sclera anicteric, conjunctiva clear. ENT: Ears normal, nares patent, oropharynx clear without exudates. Moist mucous membranes. NECK: Normal range of motion, supple without lymphadenopathy, JVD, or masses. LUNGS: Breath sounds equal, clear to auscultation bilaterally. No wheezes, and no crackles. HEART:Regular rate and rhythm, normal S1 and S2 without murmur, rub or gallop. ABDOMEN: Soft, nontender, normoactive bowel sounds. No guarding, no rebound. EXTREMITIES: +Gangrenous, cool toes of the RLE. No pain. Normal range of motion , no edema. No clubbing or cyanosis. No erythema, or tenderness. NEUROLOGICAL: Cranial nerves II through XII grossly intact. Normal speech. No focal neurological deficits. MUSCULOSKELETAL: Back nontender to palpation, no CVA tenderness SKIN: Warm, Dry, normal turgor, no rashes or lesions noted. <Stephanie King - Last Filed: 07/20/16 18:38> Heart Score/ECG Review #1 ECG reviewed & interpreted by me at: 14:57 07/20/16 14:57 Twelve-lead EKG was performed and reviewed by me. There is normal sinus rhythm with a normal rate of 73bpm. The axis is normal. The intervals are normal - pr: 208ms (prolonged), QRS:90ms, QTc:473ms. There are no ST elevations or depressions. T waves upright <Laurel Cruz - Last Filed: 07/20/16 17:35> ED Treatment Course - LABORATORY CBC & Chemistry Diagram: 07/20/16 13:55 07/20/16 13:55 - RADIOLOGY Radiology Studies Ordered: Category Date Time Status AORTOGRAM ABD. W/ RUN OFF [RADS] Stat Radiology 07/20/16 13:31 Ordered <Laurel Cruz - Last Filed: 07/20/16 17:35> - LABORATORY CBC & Chemistry Diagram: 07/20/16 13:55 07/20/16 13:55 - ADDITIONAL ORDERS Additional order review: Laboratory Results 07/20/16 07/20/16 13:55 13:31 INR 1.29 H Sodium 135 L Potassium 3.8 Chloride 93 L Carbon Dioxide 32 Anion Gap 10 BUN 35 H Creat Clearance w eGFR 7.14 Random Glucose 132 H Calcium 8.3 L Total Bilirubin 0.5 AST 40 H D ALT 35 D Alkaline Phosphatase 109 Total Protein 7.8 Albumin 2.6 L 07/20/16 13:55 RBC 3.02 L MCV 84.9 MCHC 33.2 RDW 15.4 MPV 6.9 L Neutrophils % 60.8 Lymphocytes % 19.5 D Monocytes % 11.7 H Eosinophils % 6.6 H D Basophils % 1.4 <Stephanie King - Last Filed: 07/20/16 18:38> Medical Decision Making - Medical Decision Making 07/20/16 13:32 A portion of this note was documented by scribe services under my direction. I have reviewed the details of the note, within reason, and agree with the documentation with the following case summary and management plan written by me. Nursing documentation reviewed and incorporated into medical decision making Mr Diaz is a 55 yo M with a history of DM, HTN, HLD, ESRD on HD (T/R/S) Pt denies fevers, chills, foot pain He does feel that his foot feels cold No chest pain, shortness of breath, He is s/p right 4th/5th toe amputation and 5th met head resection for severe DM foot infection. Pt seen in follow up today Noted to have gangrenous toes R foot: large post-surgical wound lateral 4th/5th rays with mixed fibrogranular base, macerated borders with sloughing of epithelium, no purulence, serous drainage, no purulence, no fluctuance, no streaking cellulitis, no signs of active infection. The 2nd and 3rd toes are cool and dusky with absent capillary filling time. 07/20/16 14:51 Laboratory Tests 07/20/16 07/20/16 13:55 13:55 WBC 6.7 D Hgb 8.5 L Hct 25.6 L Plt Count 342 Neutrophils % 60.8 Lymphocytes % 19.5 D Sodium 135 L Potassium 3.8 Chloride 93 L Carbon Dioxide 32 BUN 35 H Random Glucose 132 H 07/20/16 14:58 07/20/16 15:[address] Brian Pabon He sates that this patient does not make much urine Can perform CT He will assess him in the morning for dialysis 07/20/16 16:[address] Vasquez Will admit to hospitalist service 07/20/16 17:36 Pt BP very elevated Labetolol ordered Pt states this does not work for him He states Minoxidil works the best Ordered for him <Laurel Cruz - Last Filed: 07/20/16 17:35> - Medical Decision Making 07/20/16 18:36 Dr. Sarah Marks was paged at 2:53pm. Dr. Torres is on called a paged was placed overhead. Dr. Torres was paged a second time via paging service at 3:09pm. Dr. Torres called back at 3:12pm and spoke with Dr. Cruz regarding the patient' s care. <Stephanie King - Last Filed: 07/20/16 18:38> *DC/Admit/Observation/Transfer - Discharge Dispostion Admit: Yes <Laurel Cruz - Last Filed: 07/20/16 17:35> - Attestations Scribe Attestion: 07/20/16 14:50 Documentation prepared by LAISHA Dixon, acting as medical equipment repair technician for Laurel Cruz MD. <Stephanie King - Last Filed: 07/20/16 18:38> Diagnosis at time of Disposition: Gangrene of toe of right foot - Discharge Dispostion Condition at time of disposition: Stable
[2016-07-20 14:14] LABS: BASOPHIL 1.4 % (0-2.0); EOSINOPHIL 6.6 % (0-4.5); MCH 28.2 pg (25.7-33.7); MCHC 33.2 g/dl (32.0-35.9); MEAN CELL VOLUME 84.9 fl (80-96); MEAN PLT VOLUME 6.9 fl (7.5-11.1); NEUTROPHILS 60.8 % (42.8-82.8); PLATELET COUNT 342 K/MM3 (134-434); RDW 15.4 % (11.9-15.9); WHITE BLOOD COUNT 6.7 K/mm3 (4.0-10.0)
[2016-07-20 14:24] LABS: INR 1.29 (0.82-1.09); PROTHROMBIN TIME (PATIENT) 14.3 SEC (9.98-11.88)
[2016-07-20 14:37] LABS: ALBUMIN 2.6 g/dl (3.4-5.0); BILIRUBIN,TOTAL 0.5 mg/dL (0.2-1.0); CALCIUM 8.3 mg/dL (8.5-10.1); COCKROFT - GAULT 13.55; TOT PROT 7.8 g/dl (6.4-8.2)
[2016-07-20 14:58] LABS: CREATININE 7.9 mg/dL (0.7-1.3)
[2016-07-20] MEDS ORDERED: LABETALOL HCL 5 MG/1 ML (100MG/20 ML VIAL) IVPUSH ONE (17:23)
--- NOTE | 2016-07-20 17:23 | PN ---
Teaching Attending Note Name of Resident: Chante Dee ATTENDING PHYSICIAN STATEMENT I saw and evaluated the patient. I reviewed the resident's note and discussed the case with the resident. I agree with the resident's findings and plan as documented. SUBJECTIVE: This is a 55 year old man with a history of osteomyelitis of the right 4th metatarsal s/p amputation of his right 4th and 5th toes on 07/03, ESRD on HD, HTN, DM who was sent to the ER today by Dr. Almanzar because of discoloration of his right 2nd and 3rd toes. The patient denies pain, fever, chills. He had been discharged on 07/09 with a wound VAC, PICC for Vancomycin, and VNS for wound care. OBJECTIVE: Vital Signs Period Temp Pulse Resp BP Sys/Salas Pulse Ox Last 24 Hr 98.1 F 74 18 181/79 100 HEART: S1 S2, RRR LUNGS: Clear ABDOMEN: Soft, non-tender, non-distended, normal BS EXTREMITIES: Trace edema RLE. s/p amputation of right 4th and 5th toes. Right 2nd and 3rd toes cool and black. ASSESSMENT AND PLAN: This is a 55 year old man with a history of osteomyelitis of the right 4th metatarsal, amputation of his right 4th and 5th toes, ESRD on HD, HTN, DM who was sent to the ER today for evaluation of discoloration of his right 2nd and 3rd toes. 1. Ischemia of right 2nd and 3rd toes - CTA pending - Podiatry, vascular surgery evaluations 2. Osteomyelitis of right 4th metatarsal - Continue Vancomycin 3. ESRD - Nephrology consult for HD (last HD was today, patient received IV contrast for CTA) 4. Anemia secondary to CKD - Hemoglobin stable 5. HTN - Continue Torsemide, Minoxidil 6. DM - Continue Levemir - Novolog sliding scale
[2016-07-20] MEDS ORDERED: LABETALOL HCL 5 MG/1 ML (200MG/40ML VIAL) IVPB ONE (17:28)
[2016-07-20] MEDS ORDERED: MINOXIDIL 10 MG TABLET PO ONE (17:30)
--- NOTE | 2016-07-20 19:42 | HP ---
CHIEF COMPLAINT: Discoloration of right 2nd and 3rd toe PCP: Dr. Gonzalez HISTORY OF PRESENT ILLNESS: Patient is a 55 year old male with a significant PMHx of osteomyelitis of the 4th right metatarsal s/p amputation, HTN, DM, ESRD on Hemodialysis () who was sent here by his customer service driver, Dr. Almanzar because of abnormal discoloration of his right second and third toes seen at his wound care follow up. Patient reports this week he felt as if he was walking on his heel bone rather than skin. However, he denies any pain. He reports being at SNF for treatment but the care was very poor. Patient was recently discharged from here on 07/09/16 for osteomyelitis with a PICC line for IV abx for six weeks and a Wound VAC. Patient denies any trauma or injury to the area. He denies feeling any pain or abnormal sensation. Otherwise, patient denies fever, chills , nausea, vomiting, abdominal pain, chest pain, palpitations, shortness of breath. ER course was notable for: (1) Aorta with run off CTA pending (2) Linoxidil 10mg for HTN (3) Chest X-ray negative Recent Travel: Denies PAST MEDICAL HISTORY: IDDMII, HTN, Osteomyelitis, ESRD on HD() PAST SURGICAL HISTORY: Fistula Social History: Smoking: Denies Alcohol: Denies Drugs: Denies Family History: non-contributory Allergies: No Known Drug Allergies Allergy (Verified 07/20/16 13:24) HOME MEDICATIONS: Home Medications Medication Instructions Recorded Torsemide 20 mg PO BID 12/08/15 Minoxidil 10 mg PO DAILY 02/23/16 Insulin Lispro [Humalog] 6 unit SQ HS 06/27/16 Acetaminophen [Tylenol .Regular 650 mg PO Q4H PRN #0 tablet 07/09/16 Strength -] Vancomycin 1 gm Premix - 1 gm IV DAILY 30 Days 07/09/16 REVIEW OF SYSTEMS CONSTITUTIONAL: Absent: fever, chills, diaphoresis, generalized weakness, malaise, loss of appetite, weight change HEENT: Absent: rhinorrhea, nasal congestion, throat pain, throat swelling, difficulty swallowing, mouth swelling, ear pain, eye pain, visual changes CARDIOVASCULAR: Absent: chest pain, syncope, palpitations, irregular heart rate, lightheadedness , peripheral edema RESPIRATORY: Absent: cough, shortness of breath, dyspnea with exertion, orthopnea, wheezing, stridor, hemoptysis GASTROINTESTINAL: Absent: abdominal pain, abdominal distension, nausea, vomiting, diarrhea, constipation, melena, hematochezia GENITOURINARY: Absent: dysuria, frequency, urgency, hesitancy, hematuria, flank pain, genital pain MUSCULOSKELETAL: Absent: myalgia, arthralgia, joint swelling, back pain, neck pain SKIN: Chronic foot ulcerations Absent: rash, itching, pallor HEMATOLOGIC/IMMUNOLOGIC: Absent: easy bleeding, easy bruising, lymphadenopathy, frequent infections ENDOCRINE: Absent: unexplained weight gain, unexplained weight loss, heat intolerance, cold intolerance NEUROLOGIC: Absent: headache, focal weakness or paresthesias, dizziness, unsteady gait, seizure, mental status changes, bladder or bowel incontinence PSYCHIATRIC: Absent: anxiety, depression, suicidal or homicidal ideation, hallucinations. PHYSICAL EXAMINATION Vital Signs - 24 hr 07/20/16 07/20/16 07/20/16 17:22 18:18 19:12 Temperature 98.2 F Pulse Rate [ 79 78 Apical] Respiratory 18 20 Rate Blood Pressure 217/112 214/94 148/66 [Right Arm] O2 Sat by Pulse 98 Oximetry (%) GENERAL: Awake, alert, and fully oriented, in no acute distress. HEAD: Normal with no signs of trauma. EYES: Pupils equal, round and reactive to light, extraocular movements intact, sclera anicteric, conjunctiva clear. EARS, NOSE, THROAT: Oropharynx clear without exudates. Moist mucous membranes. NECK: Normal range of motion, supple without lymphadenopathy, JVD, or masses. LUNGS: Breath sounds equal, clear to auscultation bilaterally. No wheezes, and no crackles. No accessory muscle use. HEART: Regular rate and rhythm, normal S1 and S2 without murmur, rub or gallop. ABDOMEN: Soft, nontender, not distended, normoactive bowel sounds, no guarding, no rebound, no masses. UPPER EXTREMITIES: Left arm fistula with palpable thrill LOWER EXTREMITIES: 1+ pitting edema of RLE NEUROLOGICAL: Normal speech. No facial drip PSYCHIATRIC: Cooperative. Good eye contact. Feeling sad for possible amputation of foot. SKIN: Amputation of right 4th and 5th metatarsals. Black discoloration of right 2nd and 3rd toes. Cool to touch Laboratory Results - last 24 hr 07/20/16 07/20/16 07/20/16 13:31 13:55 13:55 WBC 6.7 D RBC 3.02 L Hgb 8.5 L Hct 25.6 L MCV 84.9 MCHC 33.2 RDW 15.4 Plt Count 342 MPV 6.9 L Neutrophils % 60.8 Lymphocytes % 19.5 D Monocytes % 11.7 H Eosinophils % 6.6 H D Basophils % 1.4 INR 1.29 H Sodium 135 L Potassium 3.8 Chloride 93 L Carbon Dioxide 32 Anion Gap 10 BUN 35 H Creatinine 7.9 H* D Creat Clearance w eGFR 7.14 POC Glucometer Random Glucose 132 H Calcium 8.3 L Total Bilirubin 0.5 AST 40 H D ALT 35 D Alkaline Phosphatase 109 Total Protein 7.8 Albumin 2.6 L Blood Type Antibody Screen 07/20/16 07/20/16 13:55 22:10 WBC RBC Hgb Hct MCV MCHC RDW Plt Count MPV Neutrophils % Lymphocytes % Monocytes % Eosinophils % Basophils % INR Sodium Potassium Chloride Carbon Dioxide Anion Gap BUN Creatinine Creat Clearance w eGFR POC Glucometer 211.81495 Random Glucose Calcium Total Bilirubin AST ALT Alkaline Phosphatase Total Protein Albumin Blood Type O POSITIVE Antibody Screen Negative ASSESSMENT/PLAN: Patient is a 55 year old male with a PMHx of Osteomyelitis s/p amputation of right 4th metatarsal, IDDMII, HTN, ESRD on HD (,,) who was sent by his customer service driver because of abnormal black discoloration of his right second and third . Patient admitted for further monitoring and management. Right 2nd and 3rd Toe Ischemia Possible Gangrenous -CTA pending -Podiatry consult placed -Vascular consult placed Osteomyelitis of Right 4th toe S/P amputation- [place]ornic -Recently discharged on 07/08/16 with PICC line and Wound Vac. Was staying at [facility] -Continue Vancomycin 1gm during hemodialysis Tuesday, , Saturdays ESRD on HD- Chronic -Last HD today -Received IV CTA today, will likely need another HD session tomorrow -Nephrology consult placed DMII-Chronic -ISS -Levemir 6 units HS -BGM HTN-Chronic -Continue Minoxidil 10md daily -Continue Turosemide 20mg daily -Continue to monitor BP Anemia secondary to CKD-Chronic -Hemoglobin 8.5 -Asymptomatic -Continue to trend F/E/N -On no fluids -Electrolytes wnl -Renal Diet Prophylaxis -SCD's for DVT Disposition -CTA pending. Will possibly require HD tomorrow due to CTA. Visit type - Emergency Visit Emergency Visit: Yes ED Registration Date: 07/20/16 Care time: The patient presented to the Emergency Department on the above date and was hospitalized for further evaluation of their emergent condition. - New Patient This patient is new to me today: Yes Date on this admission: 07/20/16 - Critical Care Critical Care patient: No
[2016-07-20] MEDS: INSULIN SLIDING SCALE (NOVOLOG) 1 VIAL SQ SCH (22:11)
[2016-07-20] MEDS: TORSEMIDE 20 MG TABLET (FP) PO SCH (22:23)
[2016-07-21 06:58] LABS: MCH 28.1 pg (25.7-33.7); MCHC 33.2 g/dl (32.0-35.9); MEAN CELL VOLUME 84.7 fl (80-96); MEAN PLT VOLUME 6.9 fl (7.5-11.1); PLATELET COUNT 313 K/MM3 (134-434); RDW 15.8 % (11.9-15.9); WHITE BLOOD COUNT 6.9 K/mm3 (4.0-10.0)
[2016-07-21] MEDS: INSULIN SLIDING SCALE (NOVOLOG) 1 VIAL SQ SCH ×4 (07:10→21:51)
[2016-07-21 07:14] LABS: INR 1.33 (0.82-1.09); PROTHROMBIN TIME (PATIENT) 14.7 SEC (9.98-11.88)
[2016-07-21 07:16] LABS: ACTIVATED PTT 34.8 SECONDS (26.9-34.4)
[2016-07-21 07:42] LABS: CALCIUM 8.2 mg/dL (8.5-10.1)
[2016-07-21 07:54] LABS: COCKROFT - GAULT 10.7
--- NOTE | 2016-07-21 11:01 | CONSULT ---
Consult - text type - Consultation Consultation Note: Renal Consult for ESRD on HD This is a 55 year old Gentleman with PMhx of ESRD on HD (TTS), DM, Hypertension , PVD, recent admission for Osteomylitis who was sent to the ED for discolored toes and admitted for distal ischemia. Pt s/p amputation of 4th and 5th digits on the right foot last admission. He has been on IV Vanco with dialysis for Tx of osteomylitis. Pt denies any pain and has not been putting weight on the wound. No fevers, chills, sob, chest pain, N/V/D. Last dialysis was yesterday morning. Recieved IV contrast for CTA of the LE yesterday afternoon. Pt does report decent urine output on dialysis. PMHx: as above Allergies: NKDA Family Hx: NC Social Hx: No T/A/D ROS: as per HPI, all other pertinent ros negative Home Medications Medication Instructions Recorded Acetaminophen [Tylenol] 650 mg PO Q4H PRN 07/21/16 Insulin Lispro [Humalog] 6 unit SQ HS 07/21/16 Minoxidil [Loniten -] 10 mg PO DAILY 07/21/16 Torsemide 20 mg PO BID 07/21/16 Vital Signs Temperature 98.8 F 07/21/16 06:32 Pulse Rate 88 07/21/16 06:32 Respiratory Rate 17 07/21/16 06:32 Blood Pressure 159/77 07/21/16 06:32 O2 Sat by Pulse Oximetry (%) 95 07/21/16 06:32 Intake & Output 07/18/16 07/19/16 07/20/16 07/21/16 23:59 23:59 23:59 23:59 Weight 200 lb Gen: NAD, awake and alert HEENT: NC/AT, MMM, No JVD CVS: RRR, No M/R Lungs: CTA, no rales or wheeze Abd: Soft NT/ND Ext: No edema, clubbing or cyanosis Access: AVF CBC, BMP 07/21/16 06:08 07/21/16 06:08 Current Medications Heparin Sodium (Porcine) (Heparin -) 1,000 unit IVPUSH ONCE ONE Stop: 07/21/16 10:50 Vancomycin HCl (Vancomycin (Pre-Docked)) 250 mls @ 250 mls/hr IVPB TUTHSA@1000 [facility] PRN Reason: Protocol Insulin Aspart (Novolog Vial Sliding Scale -) 1 vial SQ ACHS [facility] PRN Reason: Protocol Last Admin: 07/21/16 07:10 Dose: Not Given Insulin Detemir (Levemir Vial) 6 units SQ HS MONIK Minoxidil (Loniten -) 10 mg PO DAILY MONIK Torsemide (Demadex -) 20 mg PO BID [facility] Last Admin: 07/20/16 22:23 Dose: 20 mg A/P 55 year old Gentleman with PMhx of ESRD on HD (TTS), DM, Hypertension, PVD, recent admission for Osteomylitis who was sent to the ED for discolored toes and admitted for distal ischemia. #Distal Ischemia/PVD/Osteomylitis s/p CTA with runoff, official read is pending Vascular and Podiatry consulted s/p Vanco with dialysis yesterday, will check level today before dialysis pain control local wound care #ESRD on HD For HD today in an attempt to remove contrast material and preserve residual renal function will plan for dialysis again tomorrow following traditional angiogram dose all meds for intermittent HD #Hypertension Continue Minoxiidil and Torsemide #DM Continue insulin sliding scale #CKD Related Anemia will give high Dose Epogen TIW with HD no acute indication for transfusion #Renal Osteodystrophy Trend Phos levels Thank you Will follow Cm Torres DO
--- NOTE | 2016-07-21 11:16 | SPA.PREOP ---
- PRE-OP NOTE Dx: Right foot gangrene 2nd and 3rd toes Planned Procedure: RLE angiogram Surgeon: Lee Araiza Consent: To be obtained by surgeon after risks, benefits and alternatives explained to the patient. Last Vital Signs Temp Pulse Resp BP Pulse Ox 98.8 F 88 17 159/77 95 07/21/16 06:32 07/21/16 06:32 07/21/16 06:32 07/21/16 06:32 07/21/16 06:32 Lab Results WBC 6.9 K/mm3 (4.0-10.0) 07/21/16 06:08 RBC 2.74 M/mm3 (4.00-5.60) L 07/21/16 06:08 Hgb 7.7 GM/dL (11.7-16.9) L 07/21/16 06:08 Hct 23.2 % (35.4-49) L 07/21/16 06:08 MCV 84.7 fl (80-96) 07/21/16 06:08 MCHC 33.2 g/dl (32.0-35.9) 07/21/16 06:08 RDW 15.8 % (11.9-15.9) 07/21/16 06:08 Plt Count 313 K/MM3 (134-434) 07/21/16 06:08 Sodium 134 mmol/L (136-145) L 07/21/16 06:08 Potassium 4.6 mmol/L (3.5-5.1) D 07/21/16 06:08 Chloride 94 mmol/L (98-107) L 07/21/16 06:08 Carbon Dioxide 29 mmol/L (21-32) 07/21/16 06:08 Anion Gap 11 (8-16) 07/21/16 06:08 BUN 45 mg/dL (7-18) H D 07/21/16 06:08 Creatinine 10.0 mg/dL (0.7-1.3) H* D 07/21/16 06:08 Random Glucose 113 mg/dL (74-106) H 07/21/16 06:08 Calcium 8.2 mg/dL (8.5-10.1) L 07/21/16 06:08 Blood Type O POSITIVE 07/20/16 13:55 Antibody Screen Negative 07/20/16 13:55 INR 1.33 (0.82-1.09) H 07/21/16 06:08 - IMAGING Cat Scan: Pending, Report Reviewed - ASSESSMENT/PLAN Problem List - Problems (1) Gangrene of toe of right foot Assessment/Plan: 1. Make NPO after midnight except po meds 2. GI/DVT PPX 3. Medical optimization / clearance 4. 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 - New patient This patient is new to me today: Yes Date on this admission: 07/21/16
[2016-07-21] MEDS ORDERED: HEPARIN NA (PORCINE) 5,000 UNITS/ML 1ML VIAL IVPUSH ONE (11:45)
--- NOTE | 2016-07-21 11:54 | PN ---
Progress Note (short form) - Note Progress Note: Podiatry: Pt seen and evaluated at bedside in ED. Patient sent to ED for admission for worsening DFI R foot and ischemic changes R 2nd and 3rd toe. Patient is s/p R 4th/5th toe amputation and 4th/5th ray partial resection for severe DM infection. Discussed case with Vascular Sx, plan for RLE angiogram tomorrow. eMl Almanzar DPM
[2016-07-21] MEDS: TORSEMIDE 20 MG TABLET (FP) PO SCH ×2 (12:19→21:52)
[2016-07-21] MEDS: MINOXIDIL 10 MG TABLET PO SCH ×2 (12:19→14:03)
--- NOTE | 2016-07-21 12:35 | EKG ---
Test Reason : Blood Pressure : / mmHG Vent. Rate : 073 BPM Atrial Rate : 073 BPM P-R Int : 208 ms QRS Dur : 090 ms QT Int : 430 ms P-R-T Axes : 055 -06 101 degrees QTc Int : 473 ms NORMAL SINUS RHYTHM ABNORMAL QRS-T ANGLE, CONSIDER PRIMARY T WAVE ABNORMALITY ABNORMAL ECG WHEN COMPARED WITH ECG OF 27-JUN-2016 12:32, PREMATURE VENTRICULAR COMPLEXES ARE NO LONGER PRESENT T WAVE AMPLITUDE HAS DECREASED IN ANTERIOR LEADS Confirmed by RYAN PEARSON MD ([id number]) on 07/21/2016 12:34:41 PM Referred By: Confirmed By:RYAN PEARSON MD
[2016-07-21] MEDS ORDERED: VANCOMYCIN (PRE-DOCKED) 100 ML IVPB ONE (14:45)
--- NOTE | 2016-07-21 16:00 | PN ---
Physical Exam: SUBJECTIVE: Patient seen and examined at bedside. No overnight events. No new complaints. Denies CP, MICHAEL, SOB, abd.pain, palpitations, N/V. OBJECTIVE: Vital Signs Period Temp Pulse Resp BP Sys/Salas Pulse Ox Last 24 Hr 98.2 F-98.8 F 78-90 17-20 146-217/66-112 95-100 GENERAL: AAOx3, no acute distress HEAD: NC/AT EYES: PERRLA, EOMI, sclera anicteric, conjunctiva clear. No lid lag. EARS, NOSE, THROAT: Ears normal, nares patent, oropharynx clear without exudates. Moist mucous membranes. NECK: Normal range of motion, supple without lymphadenopathy, JVD, or masses. LUNGS:CTAB, No wheezes, and no crackles. No accessory muscle use. HEART:RRR, normal S1 and S2 . ABDOMEN: Soft, NT/ND, BS(+) no guarding, no rebound, no masses. No hepatomegaly or splenomegaly. LOWER EXTREMITIES: 2+ pulses, warm, well-perfused. no calf tenderness. No peripheral edema. Plantar Left foot ulcer on hallux IPJ with no signs of infection.Right foot s/p amputation of 4/5 phalange. wound appears clean, no purulent drainage.tenderness to palpation. Ischemic changes of 2nd and 3rd toe. NEUROLOGICAL: Normal speech. gait not observed Laboratory Results - last 24 hr 07/20/16 07/21/16 07/21/16 22:10 06:08 06:08 WBC 6.9 RBC 2.74 L Hgb 7.7 L Hct 23.2 L MCV 84.7 MCHC 33.2 RDW 15.8 Plt Count 313 MPV 6.9 L ESR INR 1.33 H PTT (Actin FS) 34.8 H Sodium Potassium Chloride Carbon Dioxide Anion Gap BUN Creatinine POC Glucometer 211.67957 Random Glucose Calcium C-Reactive Protein Random Vancomycin 07/21/16 07/21/16 07/21/16 06:08 06:08 06:08 WBC RBC Hgb Hct MCV MCHC RDW Plt Count MPV ESR 110 H INR PTT (Actin FS) Sodium 134 L Potassium 4.6 D Chloride 94 L Carbon Dioxide 29 Anion Gap 11 BUN 45 H D Creatinine 10.0 H* D POC Glucometer Random Glucose 113 H Calcium 8.2 L C-Reactive Protein 6.8 H D Random Vancomycin 07/21/16 07/21/16 07/21/16 07:09 11:54 12:06 WBC RBC Hgb Hct MCV MCHC RDW Plt Count MPV ESR INR PTT (Actin FS) Sodium Potassium Chloride Carbon Dioxide Anion Gap BUN Creatinine POC Glucometer [phone] Random Glucose Calcium C-Reactive Protein Random Vancomycin 19.827 Active Medications Generic Name Dose Route Start Last Admin Trade Name Freq PRN Reason Stop Dose Admin Vancomycin HCl 250 mls @ 250 mls/hr 07/22/16 10:00 Vancomycin (Pre-Docked) IVPB TUTHSA@1000 [facility] Protocol Vancomycin HCl 100 mls @ 100 mls/hr 07/21/16 14:45 07/21/16 14:45 Vancomycin (Pre-Docked) IVPB 07/21/16 15:44 100 mls/hr ONCE ONE Administration Protocol Insulin Aspart 1 vial 07/20/16 22:00 07/21/16 12:06 Novolog Vial Sliding Scale - SQ Not Given ACHS [facility] Protocol Insulin Detemir 6 units 07/21/16 22:00 Levemir Vial SQ HS [facility] Minoxidil 10 mg 07/21/16 10:00 07/21/16 14:03 Loniten - PO 10 mg DAILY MONIK Administration Torsemide 20 mg 07/20/16 22:00 07/21/16 12:19 Demadex - PO Not Given BID [facility] ASSESSMENT/PLAN: 55 yo M with significant PMHx. of IDDM, ESRD,HTN and chronic foot ulcers admitted evaluation of diabetic foot. Problem List - Problems (1) Diabetic foot Assessment/Plan: * R foot 2nd and 3rd toes show ischemic changes. * Seen by podiatry will send for angiogram tomorrow. * Osteomyelitis noted on previous admission continue Vanco IV. dose with dialysis. (2) Diabetes mellitus with nephropathy Assessment/Plan: * Renal/ADA diet * ISS AC * BGM ACHS * Levemir 6 Units HS (3) ESRD (end stage renal disease) Assessment/Plan: * Dialyzed yesterday * Renal diet * avoid nephrotoxins. * renal dose meds. * repeat AM labs. (4) HTN (hypertension) Assessment/Plan: * Minoxidil 10mg PO AM * Torsemide 20mgPO * Hold for SBP <90 Visit type - Emergency Visit Emergency Visit: Yes ED Registration Date: 07/20/16 Care time: The patient presented to the Emergency Department on the above date and was hospitalized for further evaluation of their emergent condition. - New Patient This patient is new to me today: No - Critical Care Critical Care patient: No - Discharge Referral Referred to [facility] Med P.C.: No
[2016-07-21] MEDS ORDERED: MINOXIDIL 10 MG TABLET PO ONE (17:33)
--- NOTE | 2016-07-21 18:50 | PN ---
Progress Note (short form) - Note Progress Note: Vascular Surgery Pt seen and examined. Right foot wound is clean and pink. 2nd and 3rd toes are cool to touch Will do angio in am. Lee Araiza DO
[2016-07-21] MEDS: COLLAGENASE CLOSTRIDIUM HIST. 30 GRAMS TUBE TP SCH (19:41)
--- NOTE | 2016-07-21 20:59 | PN ---
Teaching Attending Note Name of Resident: Steven Constantino ATTENDING PHYSICIAN STATEMENT I saw and evaluated the patient. I reviewed the resident's note and discussed the case with the resident. I agree with the resident's findings and plan as documented. SUBJECTIVE: Patient is c/o having Right Extremity pain. No nausea or vomiting. OBJECTIVE: Vital Signs Temperature 99.0 F 07/21/16 16:16 Pulse Rate 84 07/21/16 16:16 Respiratory Rate 20 07/21/16 16:16 Blood Pressure 155/77 07/21/16 16:16 O2 Sat by Pulse Oximetry (%) 93 L 07/21/16 16:25 CBCD WBC 6.9 K/mm3 (4.0-10.0) 07/21/16 06:08 RBC 2.74 M/mm3 (4.00-5.60) L 07/21/16 06:08 Hgb 7.7 GM/dL (11.7-16.9) L 07/21/16 06:08 Hct 23.2 % (35.4-49) L 07/21/16 06:08 MCV 84.7 fl (80-96) 07/21/16 06:08 MCHC 33.2 g/dl (32.0-35.9) 07/21/16 06:08 RDW 15.8 % (11.9-15.9) 07/21/16 06:08 Plt Count 313 K/MM3 (134-434) 07/21/16 06:08 MPV 6.9 fl (7.5-11.1) L 07/21/16 06:08 CMP Sodium 134 mmol/L (136-145) L 07/21/16 06:08 Potassium 4.6 mmol/L (3.5-5.1) D 07/21/16 06:08 Chloride 94 mmol/L (98-107) L 07/21/16 06:08 Carbon Dioxide 29 mmol/L (21-32) 07/21/16 06:08 Anion Gap 11 (8-16) 07/21/16 06:08 BUN 45 mg/dL (7-18) H D 07/21/16 06:08 Creatinine 10.0 mg/dL (0.7-1.3) H* D 07/21/16 06:08 Creat Clearance w eGFR 7.14 (>60) 07/20/16 13:55 Random Glucose 113 mg/dL (74-106) H 07/21/16 06:08 Calcium 8.2 mg/dL (8.5-10.1) L 07/21/16 06:08 Total Bilirubin 0.5 mg/dL (0.2-1.0) 07/20/16 13:55 AST 40 U/L (15-37) H D 07/20/16 13:55 ALT 35 U/L (12-78) D 07/20/16 13:55 Alkaline Phosphatase 109 U/L (45-117) 07/20/16 13:55 Total Protein 7.8 g/dl (6.4-8.2) 07/20/16 13:55 Albumin 2.6 g/dl (3.4-5.0) L 07/20/16 13:55 Current Medications Generic Name Dose Route Start Last Admin Trade Name Freq PRN Reason Stop Dose Admin Collagenase 1 applic 07/21/16 19:00 07/21/16 19:41 Santyl - TP 1 applic DAILY [facility] Administration Vancomycin HCl 250 mls @ 250 mls/hr 07/22/16 10:00 Vancomycin (Pre-Docked) IVPB TUTHSA@1000 [facility] Protocol Insulin Aspart 1 vial 07/20/16 22:00 07/21/16 16:53 Novolog Vial Sliding Scale - SQ Not Given ACHS [facility] Protocol Insulin Detemir 6 units 07/21/16 22:00 Levemir Vial SQ [facility] Minoxidil 10 mg 07/21/16 10:00 07/21/16 14:03 Loniten - PO 10 mg DAILY [facility] Administration Torsemide 20 mg 07/20/16 22:00 07/21/16 12:19 Demadex - PO Not Given BID [facility] Home Medications Medication Instructions Recorded Acetaminophen [Tylenol] 650 mg PO Q4H PRN 07/21/16 Insulin Lispro [Humalog] 6 unit SQ HS 07/21/16 Minoxidil [Loniten -] 10 mg PO DAILY 07/21/16 Torsemide 20 mg PO BID 07/21/16 ASSESSMENT AND PLAN: 55 yo M with significant PMHx. of IDDM, ESRD,HTN and chronic foot ulcers admitted evaluation of diabetic foot. # Acute Diabetic foot with Osteomelitis :R foot 2nd and 3rd toes show ischemic changes. Seen by podiatry will send for angiogram tomorrow. Osteomyelitis on previous admission , on Vanco IV. dose with dialysis. # Diabetes mellitus with nephropathy # ESRD (end stage renal disease) # HTN (hypertension) Minoxidil 10mg PO AM .Torsemide 20mg PO DVT Px: heparin
[2016-07-21] MEDS ORDERED: INSULIN DETEMIR 100 UNITS/ML MDV SQ SCH (22:00)
[2016-07-21] MEDS ORDERED: PT OWN MED DRAWER 7, Y5N ONE (22:02)
[2016-07-22] MEDS: INSULIN SLIDING SCALE (NOVOLOG) 1 VIAL SQ SCH ×4 (06:21→22:02)
[2016-07-22 08:54] LABS: MCH 27.6 pg (25.7-33.7); MCHC 32.2 g/dl (32.0-35.9); MEAN CELL VOLUME 85.5 fl (80-96); MEAN PLT VOLUME 6.4 fl (7.5-11.1); PLATELET COUNT 315 K/MM3 (134-434); RDW 15.7 % (11.9-15.9); WHITE BLOOD COUNT 6.8 K/mm3 (4.0-10.0)
[2016-07-22 09:27] LABS: CALCIUM 8.3 mg/dL (8.5-10.1); COCKROFT - GAULT 13.06
[2016-07-22 09:40] LABS: CREATININE 8.4 mg/dL (0.7-1.3)
[2016-07-22] MEDS: TORSEMIDE 20 MG TABLET (FP) PO SCH (10:00)
[2016-07-22] MEDS ORDERED: VANCOMYCIN 1 GRAM (PRE-DOCKED) 250 ML IVPB SCH (10:00)
[2016-07-22] MEDS ORDERED: MIDAZOLAM HCL 2 MG/2 ML SINGLE DOSE VIAL ONE ×3 (10:02→12:57)
[2016-07-22] MEDS ORDERED: PROPOFOL 20 ML ONE ×3 (10:02→12:10)
[2016-07-22] MEDS ORDERED: ceFAZolin SODIUM 1 GM VIAL IVPB ONE (10:22)
[2016-07-22] MEDS ORDERED: PROMETHAZINE HCL 25 MG/1 ML VIAL IVPUSH PRN ×2 (13:35→14:48)
[2016-07-22] MEDS ORDERED: ONDANSETRON 4 MG/2 ML VIAL IVPUSH PRN ×2 (13:35→14:48)
[2016-07-22] MEDS ORDERED: oxyCODONE HCL 5 MG TABLET PO PRN ×2 (13:35→14:48)
--- NOTE | 2016-07-22 13:36 | OP ---
Operative Note - Note: Operative Date: 07/22/16 Pre-Operative Diagnosis: Right foot gangrene Operation: Aortogram, RLE angiogram, popliteal artery DCB angioplasty , Posterior tibial and peroneal artery angioplasty, Anterior tibial artery atherectomy with angioplasty Findings: Main runoff - anterior tibial artery Post-Operative Diagnosis: Same as Pre-op Surgeon: Lee Araiza Anesthesia: Fractional Estimated Blood Loss (mls): 100 Operative Report Dictated: Yes
[2016-07-22] MEDS: CLOPIDOGREL BISULFATE 75 MG TABLET (FP) PO SCH (14:30)
[2016-07-22] MEDS ORDERED: CLOPIDOGREL BISULFATE 75 MG TABLET (FP) ONE (14:59)
[2016-07-22] MEDS: MINOXIDIL 10 MG TABLET PO SCH ×2 (15:55→23:29)
[2016-07-22] MEDS: COLLAGENASE CLOSTRIDIUM HIST. 30 GRAMS TUBE TP SCH (15:57)
[2016-07-22] MEDS: VANCOMYCIN 1 GRAM (PRE-DOCKED) 250 ML IVPB SCH (16:50)
--- NOTE | 2016-07-22 17:03 | PN ---
Physical Exam: SUBJECTIVE: Patient seen and examined at bedside. No overnight events. No new complaints. Denies CP, MICHAEL, SOB, abd.pain, palpitations, N/V. OBJECTIVE: Vital Signs Period Temp Pulse Resp BP Sys/Salas Pulse Ox Last 24 Hr 98.2 F-98.8 F 78-90 17-20 146-217/66-112 95-100 GENERAL: AAOx3, no acute distress HEAD: NC/AT EYES: PERRLA, EOMI, sclera anicteric, conjunctiva clear. No lid lag. EARS, NOSE, THROAT: Ears normal, nares patent, oropharynx clear without exudates. Moist mucous membranes. NECK: Normal range of motion, supple without lymphadenopathy, JVD, or masses. LUNGS:CTAB, No wheezes, and no crackles. No accessory muscle use. HEART:RRR, normal S1 and S2 . ABDOMEN: Soft, NT/ND, BS(+) no guarding, no rebound, no masses. No hepatomegaly or splenomegaly. LOWER EXTREMITIES: 2+ pulses, warm, well-perfused. no calf tenderness. No peripheral edema. Plantar Left foot ulcer on hallux IPJ with no signs of infection.Right foot s/p amputation of 4/5 phalange. wound appears clean, no purulent drainage.tenderness to palpation. Ischemic changes of 2nd and 3rd toe. NEUROLOGICAL: Normal speech. gait not observed Laboratory Results - last 24 hr 07/21/16 07/21/16 07/21/16 12:35 16:51 21:49 WBC RBC Hgb Hct MCV MCHC RDW Plt Count MPV Sodium Potassium Chloride Carbon Dioxide Anion Gap BUN Creatinine POC Glucometer 124 151 Random Glucose Calcium Random Vancomycin Hepatitis C Antibody <0.1 07/22/16 07/22/16 07/22/16 06:17 08:51 08:51 WBC 6.8 RBC 2.91 L Hgb 8.0 L Hct 24.9 L MCV 85.5 MCHC 32.2 RDW 15.7 Plt Count 315 MPV 6.4 L Sodium 137 Potassium 4.2 Chloride 95 L Carbon Dioxide 31 Anion Gap 11 BUN 29 H D Creatinine 8.4 H* POC Glucometer 112 Random Glucose 102 Calcium 8.3 L Random Vancomycin Hepatitis C Antibody 07/22/16 15:45 WBC RBC Hgb Hct MCV MCHC RDW Plt Count MPV Sodium Potassium Chloride Carbon Dioxide Anion Gap BUN Creatinine POC Glucometer Random Glucose Calcium Random Vancomycin 14.622 Hepatitis C Antibody Active Medications Generic Name Dose Route Start Last Admin Trade Name Freq PRN Reason Stop Dose Admin Clopidogrel Bisulfate 75 mg 07/22/16 13:45 07/22/16 14:30 Plavix - PO 75 mg DAILY [facility] Administration Collagenase 1 applic 07/23/16 10:00 Santyl - TP DAILY [facility] Vancomycin HCl 250 mls @ 250 mls/hr 07/22/16 16:30 07/22/16 16:50 Vancomycin (Pre-Docked) IVPB 250 mls/hr TUTHSA@1000 [facility] Administration Protocol Insulin Aspart 1 vial 07/22/16 16:30 Novolog Vial Sliding Scale - SQ ACHS [facility] Protocol Insulin Detemir 6 units 07/22/16 22:00 Levemir Vial SQ HS [facility] Minoxidil 10 mg 07/23/16 10:00 Loniten - PO DAILY [facility] Ondansetron HCl 4 mg 07/22/16 14:48 Zofran Injection IVPUSH 07/22/16 19:36 Q6H PRN NAUSEA AND/OR VOMITING Oxycodone HCl 10 mg 07/22/16 14:48 Roxicodone - PO 07/23/16 13:34 Q4H PRN SEVERE PAIN Promethazine HCl 12.5 mg 07/22/16 14:48 Phenergan Injection - IVPUSH 07/22/16 19:36 Q6H PRN NAUSEA Torsemide 20 mg 07/23/16 06:00 Demadex - PO BIDLASIX [facility] ASSESSMENT/PLAN: 55 yo M with significant PMHx. of IDDM, ESRD,HTN and chronic foot ulcers admitted evaluation of diabetic foot. Problem List - Problems (1) Diabetic foot Assessment/Plan: * R foot 2nd and 3rd toes show ischemic changes. * S/P Aortogram, RLE angiogram, popliteal artery DCB angioplasty , Posterior tibial and peroneal artery angioplasty, Anterior tibial artery atherectomy with angioplasty * Osteomyelitis noted on previous admission continue Vanco IV. dose with dialysis. (2) Diabetes mellitus with nephropathy Assessment/Plan: * Renal/ADA diet * ISS AC * BGM ACHS * Levemir 6 Units HS (3) ESRD (end stage renal disease) Assessment/Plan: * Dialyzed today * Renal diet * avoid nephrotoxins. * renal dose meds. * repeat AM labs. (4) HTN (hypertension) Assessment/Plan: * Minoxidil 10mg PO AM * Torsemide 20mgPO * Hold for SBP <90 Visit type - Emergency Visit Emergency Visit: Yes ED Registration Date: 07/20/16 Care time: The patient presented to the Emergency Department on the above date and was hospitalized for further evaluation of their emergent condition. - New Patient This patient is new to me today: No - Critical Care Critical Care patient: No
--- NOTE | 2016-07-22 20:40 | PN ---
Teaching Attending Note Name of Resident: Steven Constantino ATTENDING PHYSICIAN STATEMENT I saw and evaluated the patient. I reviewed the resident's note and discussed the case with the resident. I agree with the resident's findings and plan as documented. SUBJECTIVE: Patient has no new complains s/p angiogram. OBJECTIVE: Vital Signs Temperature 98.9 F 07/22/16 15:25 Pulse Rate 77 07/22/16 18:35 Respiratory Rate 18 07/22/16 18:35 Blood Pressure 162/83 07/22/16 18:35 O2 Sat by Pulse Oximetry (%) 98 07/22/16 14:50 CBCD WBC 6.8 K/mm3 (4.0-10.0) 07/22/16 08:51 RBC 2.91 M/mm3 (4.00-5.60) L 07/22/16 08:51 Hgb 8.0 GM/dL (11.7-16.9) L 07/22/16 08:51 Hct 24.9 % (35.4-49) L 07/22/16 08:51 MCV 85.5 fl (80-96) 07/22/16 08:51 MCHC 32.2 g/dl (32.0-35.9) 07/22/16 08:51 RDW 15.7 % (11.9-15.9) 07/22/16 08:51 Plt Count 315 K/MM3 (134-434) 07/22/16 08:51 MPV 6.4 fl (7.5-11.1) L 07/22/16 08:51 CMP Sodium 137 mmol/L (136-145) 07/22/16 08:51 Potassium 4.2 mmol/L (3.5-5.1) 07/22/16 08:51 Chloride 95 mmol/L (98-107) L 07/22/16 08:51 Carbon Dioxide 31 mmol/L (21-32) 07/22/16 08:51 Anion Gap 11 (8-16) 07/22/16 08:51 BUN 29 mg/dL (7-18) H D 07/22/16 08:51 Creatinine 8.4 mg/dL (0.7-1.3) H* 07/22/16 08:51 Creat Clearance w eGFR 7.14 (>60) 07/20/16 13:55 Random Glucose 102 mg/dL (74-106) 07/22/16 08:51 Calcium 8.3 mg/dL (8.5-10.1) L 07/22/16 08:51 Total Bilirubin 0.5 mg/dL (0.2-1.0) 07/20/16 13:55 AST 40 U/L (15-37) H D 07/20/16 13:55 ALT 35 U/L (12-78) D 07/20/16 13:55 Alkaline Phosphatase 109 U/L (45-117) 07/20/16 13:55 Total Protein 7.8 g/dl (6.4-8.2) 07/20/16 13:55 Albumin 2.6 g/dl (3.4-5.0) L 07/20/16 13:55 Current Medications Generic Name Dose Route Start Last Admin Trade Name Freq PRN Reason Stop Dose Admin Clopidogrel Bisulfate 75 mg 07/22/16 13:45 07/22/16 14:30 Plavix - PO 75 mg DAILY [facility] Administration Collagenase 1 applic 07/23/16 10:00 Santyl - TP DAILY [facility] Vancomycin HCl 250 mls @ 250 mls/hr 07/22/16 16:30 07/22/16 16:50 Vancomycin (Pre-Docked) IVPB 250 mls/hr TUTHSA@1000 [facility] Administration Protocol Insulin Aspart 1 vial 07/22/16 16:30 Novolog Vial Sliding Scale - SQ ACHS [facility] Protocol Insulin Detemir 6 units 07/22/16 22:00 Levemir Vial SQ [facility] Minoxidil 10 mg 07/23/16 10:00 Loniten - PO DAILY [facility] Oxycodone HCl 10 mg 07/22/16 14:48 Roxicodone - PO 07/23/16 13:34 Q4H PRN SEVERE PAIN Torsemide 20 mg 07/23/16 06:00 Demadex - PO BIDLASIX [facility] Home Medications Medication Instructions Recorded Acetaminophen [Tylenol] 650 mg PO Q4H PRN 07/21/16 Insulin Lispro [Humalog] 6 unit SQ HS 07/21/16 Minoxidil [Loniten -] 10 mg PO DAILY 07/21/16 Torsemide 20 mg PO BID 07/21/16 ASSESSMENT AND PLAN: 55 yo M with significant PMHx. of IDDM, ESRD,HTN and chronic foot ulcers admitted evaluation of diabetic foot. # Acute Right foot gangrene s/p Aortogram, RLE angiogram, popliteal artery angioplasty , Posterior tibial and peroneal artery angioplasty, Anterior tibial artery atherectomy with angioplasty by Vascular Dr.Nirav Araiza. s/p Dialysis post angioplasty. # Acute Diabetic foot with Osteomyelitis :R foot 2nd and 3rd toes show ischemic changes. Osteomyelitis on previous admission , on Vanco IV. dose with dialysis. s/p Angioplasty of popliteal artery , Posterior tibial and peroneal artery , Anterior tibial artery atherectomy with angioplasty by Vascular Dr.Nirav Araiza. # Diabetes mellitus with nephropathy on Levemir # ESRD (end stage renal disease) on HD # HTN Uncontrolled on Minoxidil 10mg PO AM .Torsemide 20mg PO DVT Px: on Plavix now post angioplasty
[2016-07-22] MEDS: INSULIN DETEMIR 100 UNITS/ML MDV SQ SCH (22:04)
[2016-07-23 00:07] LABS: HEP B SURFACE AB Reactive (.)
[2016-07-23] MEDS: TORSEMIDE 20 MG TABLET (FP) PO SCH ×2 (06:07→14:54)
[2016-07-23] MEDS: INSULIN SLIDING SCALE (NOVOLOG) 1 VIAL SQ SCH ×4 (06:09→21:36)
--- NOTE | 2016-07-23 08:46 | PN ---
Progress Note (short form) - Note Progress Note: Anesthesia Post op Pt seen and examined S:alert and awake O: Vital Signs Temperature 100.3 F H 07/23/16 06:00 Pulse Rate 88 07/23/16 06:00 Respiratory Rate 20 07/23/16 06:00 Blood Pressure 153/74 07/23/16 06:00 O2 Sat by Pulse Oximetry (%) 98 07/22/16 21:00 CBC, BMP 07/22/16 08:51 07/22/16 08:51 Current Active Problems A/P:Gangrene of toe of right foot (Acute) s/p angiogram angioplasty Doing well post op Continue current care Erik Gonzalez MD
[2016-07-23] MEDS ORDERED: PT OWN MED DRAWER 7, Y5N ONE (11:25)
[2016-07-23] MEDS: CLOPIDOGREL BISULFATE 75 MG TABLET (FP) PO SCH (11:26)
[2016-07-23] MEDS: MINOXIDIL 10 MG TABLET PO SCH (11:27)
--- NOTE | 2016-07-23 13:27 | PN ---
Progress Note (short form) - Note Progress Note: Renal Follow up for ESRD on HD Pt seen and examined at the bedside s/p angiogram with angioplasty yesterday reports some tingling in the foot today no pain no sob, chest pain s/p dialysis yesterday w/o complication Vital Signs Temperature 100.3 F H 07/23/16 06:00 Pulse Rate 88 07/23/16 06:00 Respiratory Rate 20 07/23/16 06:00 Blood Pressure 153/74 07/23/16 06:00 O2 Sat by Pulse Oximetry (%) 98 07/22/16 21:00 Intake & Output 07/20/16 07/21/16 07/22/16 07/23/16 23:59 23:59 23:59 23:59 Intake Total 0 1400 Output Total 100 Balance 0 1300 Weight 200 lb 200 lb Gen: NAD, awake and alert CVS: RRR, No M/R Lungs: CTA, no rales or wheeze Abd: Soft NT/ND Ext: Right foot is in dressing Access: AVF CBC, BMP 07/22/16 08:51 07/22/16 08:51 Current Medications Clopidogrel Bisulfate (Plavix -) 75 mg PO DAILY [facility] Last Admin: 07/23/16 11:26 Dose: 75 mg Collagenase (Santyl -) 1 applic TP DAILY [facility] Vancomycin HCl (Vancomycin (Pre-Docked)) 250 mls @ 250 mls/hr IVPB TUTHSA@1000 [facility] PRN Reason: Protocol Last Admin: 07/22/16 16:50 Dose: 250 mls/hr Insulin Aspart (Novolog Vial Sliding Scale -) 1 vial SQ ACHS [facility] PRN Reason: Protocol Last Admin: 07/23/16 12:17 Dose: Not Given Insulin Detemir (Levemir Vial) 6 units SQ HS [facility] Last Admin: 07/22/16 22:04 Dose: Not Given Minoxidil (Loniten -) 10 mg PO DAILY [facility] Last Admin: 07/23/16 11:27 Dose: 10 mg Oxycodone HCl (Roxicodone -) 10 mg PO Q4H PRN PRN Reason: SEVERE PAIN Stop: 07/23/16 13:34 Torsemide (Demadex -) 20 mg PO BIDLASIX [facility] Last Admin: 07/23/16 06:07 Dose: 20 mg A/P 55 year old Gentleman with PMhx of ESRD on HD (TTS), DM, Hypertension, PVD, recent admission for Osteomylitis who was sent to the ED for discolored toes and admitted for distal ischemia. #Distal Ischemia/PVD/Osteomylitis s/p Angiogram with angioplasty Vascular Sx follow up Continue Vancomycin with dialysis #ESRD on HD no acute indication for dialysis today next treatment planned for tomorrow #Hypertension Continue Minoxiidil and Torsemide #DM Continue insulin sliding scale #CKD Related Anemia will give high Dose Epogen TIW with HD no acute indication for transfusion #Renal Osteodystrophy Trend Phos levels Thank you Will follow Cm Torres DO
--- NOTE | 2016-07-23 15:50 | PN ---
Physical Exam: SUBJECTIVE: Patient seen and examined at bedside. No overnight events .No new complaints. Denies CP, MICHAEL, SOB, palpitations, abd.pain, N/V. OBJECTIVE: Vital Signs Period Temp Pulse Resp BP Sys/Salas Pulse Ox Last 24 Hr 98.2 F-100.3 F 68-88 18-20 152-178/74-83 98 GENERAL: AAOx3, no acute distress HEAD: NC/AT EYES: PERRLA, EOMI, sclera anicteric, conjunctiva clear. No lid lag. EARS, NOSE, THROAT: Ears normal, nares patent, oropharynx clear without exudates. Moist mucous membranes. NECK: Normal range of motion, supple without lymphadenopathy, JVD, or masses. LUNGS:CTAB, No wheezes, and no crackles. No accessory muscle use. HEART:RRR, normal S1 and S2 . ABDOMEN: Soft, NT/ND, BS(+) no guarding, no rebound, no masses. No hepatomegaly or splenomegaly. LOWER EXTREMITIES: 2+ pulses, warm, well-perfused. no calf tenderness. No peripheral edema. Plantar Left foot ulcer on hallux IPJ with no signs of infection.Right foot s/p amputation of 4/5 phalange. wound appears clean, no purulent drainage.tenderness to palpation. Ischemic changes of 2nd and 3rd toe. NEUROLOGICAL: Normal speech. gait not observed Laboratory Results - last 24 hr 07/21/16 07/22/16 07/22/16 12:35 15:45 21:07 POC Glucometer 167 Random Vancomycin 14.622 Hep A IgM Ab Confirm Negative Hepatitis A Ab Total Positive H Hep Bs Antigen Negative Hep Bs Antibody Reactive Hep B Core Total Ab Negative 07/23/16 07/23/16 06:06 11:33 POC Glucometer 106 106 Random Vancomycin Hep A IgM Ab Confirm Hepatitis A Ab Total Hep Bs Antigen Hep Bs Antibody Hep B Core Total Ab Active Medications Generic Name Dose Route Start Last Admin Trade Name Freq PRN Reason Stop Dose Admin Clopidogrel Bisulfate 75 mg 07/22/16 13:45 07/23/16 11:26 Plavix - PO 75 mg DAILY [facility] Administration Collagenase 1 applic 07/23/16 10:00 Santyl - TP DAILY [facility] Epoetin Alexander 20,000 units 07/24/16 08:00 Epogen - IVPUSH 07/24/16 08:01 ONCE ONE Vancomycin HCl 250 mls @ 250 mls/hr 07/22/16 16:30 07/22/16 16:50 Vancomycin (Pre-Docked) IVPB 250 mls/hr TUTHSA@1000 [facility] Administration Protocol Vancomycin HCl 1,000 mg/ 250 mls @ 250 mls/hr 07/24/16 08:00 Dextrose IVPB 07/24/16 08:59 ONCE ONE Protocol Insulin Aspart 1 vial 07/22/16 16:30 07/23/16 12:17 Novolog Vial Sliding Scale - SQ Not Given ACHS [facility] Protocol Insulin Detemir 6 units 07/22/16 22:00 07/22/16 22:04 Levemir Vial SQ Not Given HS [facility] Minoxidil 10 mg 07/22/16 23:00 07/23/16 11:27 Loniten - PO 10 mg DAILY [facility] Administration Torsemide 20 mg 07/23/16 06:00 07/23/16 14:54 Demadex - PO 20 mg BIDLASIX [facility] Administration ASSESSMENT/PLAN: 55 yo M with significant PMHx. of IDDM, ESRD,HTN and chronic foot ulcers admitted evaluation of diabetic foot. Problem List - Problems (1) Diabetic foot Assessment/Plan: * POD # 1 S/P Aortogram, RLE angiogram, popliteal artery DCB angioplasty , Posterior tibial and peroneal artery angioplasty, Anterior tibial artery atherectomy with angioplasty * R foot 2nd and 3rd toes show ischemic changes. * Osteomyelitis noted on previous admission continue Vanco IV. dose with dialysis. (2) Diabetes mellitus with nephropathy Assessment/Plan: * Renal/ADA diet * ISS AC * BGM ACHS * Levemir 6 Units HS (3) ESRD (end stage renal disease) Assessment/Plan: * Dialyzed yesterday. * Renal diet * avoid nephrotoxins. * renal dose meds. * repeat AM labs. (4) HTN (hypertension) Assessment/Plan: * Minoxidil 10mg PO AM * Torsemide 20mgPO * Hold for SBP <90 Visit type - Emergency Visit Emergency Visit: Yes ED Registration Date: 07/20/16 Care time: The patient presented to the Emergency Department on the above date and was hospitalized for further evaluation of their emergent condition. - New Patient This patient is new to me today: No - Critical Care Critical Care patient: No - Discharge Referral Referred to [facility] Med P.C.: No
[2016-07-23] MEDS: COLLAGENASE CLOSTRIDIUM HIST. 30 GRAMS TUBE TP SCH (17:12)
--- NOTE | 2016-07-23 18:36 | PN ---
Progress Note (short form) - Note Progress Note: Vascular Surgery Pt seen and examined. Right foot is warm. 2nd and third toe still cool to touch Will watch for demarcation. Pt wants to go home and not to a rehab place Pt will need vns to help change dressings at home. Pt is non weight bearing to right foot Lee Araiza DO
--- NOTE | 2016-07-23 20:32 | PN ---
Teaching Attending Note Name of Resident: Steven Constantino ATTENDING PHYSICIAN STATEMENT I saw and evaluated the patient. I reviewed the resident's note and discussed the case with the resident. I agree with the resident's findings and plan as documented. SUBJECTIVE: Patient is comfortable with no acute distress. Has no new complain. OBJECTIVE: Vital Signs Temperature 98.9 F 07/23/16 14:00 Pulse Rate 88 07/23/16 14:00 Respiratory Rate 18 07/23/16 14:00 Blood Pressure 153/74 07/23/16 06:00 O2 Sat by Pulse Oximetry (%) 98 07/22/16 21:00 CBCD WBC 6.8 K/mm3 (4.0-10.0) 07/22/16 08:51 RBC 2.91 M/mm3 (4.00-5.60) L 07/22/16 08:51 Hgb 8.0 GM/dL (11.7-16.9) L 07/22/16 08:51 Hct 24.9 % (35.4-49) L 07/22/16 08:51 MCV 85.5 fl (80-96) 07/22/16 08:51 MCHC 32.2 g/dl (32.0-35.9) 07/22/16 08:51 RDW 15.7 % (11.9-15.9) 07/22/16 08:51 Plt Count 315 K/MM3 (134-434) 07/22/16 08:51 MPV 6.4 fl (7.5-11.1) L 07/22/16 08:51 CMP Sodium 137 mmol/L (136-145) 07/22/16 08:51 Potassium 4.2 mmol/L (3.5-5.1) 07/22/16 08:51 Chloride 95 mmol/L (98-107) L 07/22/16 08:51 Carbon Dioxide 31 mmol/L (21-32) 07/22/16 08:51 Anion Gap 11 (8-16) 07/22/16 08:51 BUN 29 mg/dL (7-18) H D 07/22/16 08:51 Creatinine 8.4 mg/dL (0.7-1.3) H* 07/22/16 08:51 Creat Clearance w eGFR 7.14 (>60) 07/20/16 13:55 Random Glucose 102 mg/dL (74-106) 07/22/16 08:51 Calcium 8.3 mg/dL (8.5-10.1) L 07/22/16 08:51 Total Bilirubin 0.5 mg/dL (0.2-1.0) 07/20/16 13:55 AST 40 U/L (15-37) H D 07/20/16 13:55 ALT 35 U/L (12-78) D 07/20/16 13:55 Alkaline Phosphatase 109 U/L (45-117) 07/20/16 13:55 Total Protein 7.8 g/dl (6.4-8.2) 07/20/16 13:55 Albumin 2.6 g/dl (3.4-5.0) L 07/20/16 13:55 Current Medications Generic Name Dose Route Start Last Admin Trade Name Freq PRN Reason Stop Dose Admin Clopidogrel Bisulfate 75 mg 07/22/16 13:45 07/23/16 11:26 Plavix - PO 75 mg DAILY [facility] Administration Collagenase 1 applic 07/23/16 10:00 07/23/16 17:12 Santyl - TP Not Given DAILY [facility] Epoetin Alexander 20,000 units 07/24/16 08:00 Epogen - IVPUSH 07/24/16 08:01 ONCE ONE Vancomycin HCl 250 mls @ 250 mls/hr 07/22/16 16:30 07/22/16 16:50 Vancomycin (Pre-Docked) IVPB 250 mls/hr TUTHSA@1000 [facility] Administration Protocol Vancomycin HCl 1,000 mg/ 250 mls @ 250 mls/hr 07/24/16 08:00 Dextrose IVPB 07/24/16 08:59 ONCE ONE Protocol Insulin Aspart 1 vial 07/22/16 16:30 07/23/16 17:12 Novolog Vial Sliding Scale - SQ Not Given ACHS [facility] Protocol Insulin Detemir 6 units 07/22/16 22:00 07/22/16 22:04 Levemir Vial SQ Not Given HS [facility] Minoxidil 10 mg 07/22/16 23:00 07/23/16 11:27 Loniten - PO 10 mg DAILY [facility] Administration Torsemide 20 mg 07/23/16 06:00 07/23/16 14:54 Demadex - PO 20 mg BIDLASIX [facility] Administration Home Medications Medication Instructions Recorded Acetaminophen [Tylenol] 650 mg PO Q4H PRN 07/21/16 Insulin Lispro [Humalog] 6 unit SQ HS 07/21/16 Minoxidil [Loniten -] 10 mg PO DAILY 07/21/16 Torsemide 20 mg PO BID 07/21/16 Wound : looks clean R foot: large post-surgical wound lateral foot with mixed fibrogranular base, increase in granulation tissue, tissue coverage over metatarsal shafts, surrounding necrotic tissue is superficial, no purulence, no fluctuance, no bogginess, no erythema, no ascending cellulitis. Decrease in depth. Ischemic discoloration 2nd/3rd toes, cool to touch. ASSESSMENT AND PLAN: 55 yo M with significant PMHx. of IDDM, ESRD,HTN , presented with R 2nd/3rd toe ischemic changes # Acute Right foot gangrene s/p Aortogram, RLE angiogram, popliteal artery angioplasty , Posterior tibial and peroneal artery angioplasty, Anterior tibial artery atherectomy with angioplasty by Vascular Dr.Nirav Araiza. s/p Dialysis post angioplasty. s/p RLE revascularization continue with local wound care. Will need to watch the 2nd/3rd toes closely. If they deteriorate he may need amputation in the future. might need HBO, local wound care and will need VNS upon discharge. # Acute Diabetic foot with Osteomyelitis :R foot 2nd and 3rd toes show ischemic changes. Osteomyelitis on previous admission , on Vanco IV. dose with dialysis. s/p Angioplasty of popliteal artery , Posterior tibial and peroneal artery , Anterior tibial artery atherectomy with angioplasty by Vascular Dr.Nirav Araiza. # Diabetes mellitus with nephropathy on Levemir # ESRD (end stage renal disease) on HD # HTN Uncontrolled on Minoxidil 10mg PO AM .Torsemide 20mg PO DVT Px: on Plavix now post angioplasty discussed with [facility] and
[2016-07-23] MEDS: INSULIN DETEMIR 100 UNITS/ML MDV SQ SCH (21:36)
[2016-07-24] MEDS: TORSEMIDE 20 MG TABLET (FP) PO SCH ×2 (06:10→13:24)
[2016-07-24] MEDS: INSULIN SLIDING SCALE (NOVOLOG) 1 VIAL SQ SCH ×4 (06:11→21:48)
[2016-07-24 07:47] LABS: MCH 27.7 pg (25.7-33.7); MCHC 32.7 g/dl (32.0-35.9); MEAN CELL VOLUME 84.5 fl (80-96); MEAN PLT VOLUME 7.1 fl (7.5-11.1); PLATELET COUNT 255 K/MM3 (134-434); WHITE BLOOD COUNT 6.9 K/mm3 (4.0-10.0)
[2016-07-24] MEDS ORDERED: EPOETIN ALFA 20,000 UNIT/1 ML VIAL IVPUSH ONE (08:00)
[2016-07-24] MEDS ORDERED: VANCOMYCIN 1 GRAM (PRE-DOCKED) 250 ML IVPB ONE (08:00)
[2016-07-24] MEDS ORDERED: EPOETIN ALFA 2,000 UNITS/1 ML VIAL IVPUSH ONE (08:00)
--- NOTE | 2016-07-24 08:09 | PN ---
Progress Note (short form) - Note Progress Note: Podiatry: Seen and evaluated at bedside in HD. Denies F/V/N/C/SOB/CP. Afebrile, VSS. S/ p RLE revascularization with Dr. Araiza. R 2nd/3rd toe ischemic changes. S/p R 4th/5th ray resections for severe DM infection. Pt wants to go home and not rehab. ABIDAS: R foot: large post-surgical wound lateral foot with mixed fibrogranular base, increase in granulation tissue, tissue coverage over metatarsal shafts, surrounding necrotic tissue is superficial, no purulence, no fluctuance, no bogginess, no erythema, no ascending cellulitis. Decrease in depth. Ischemic discoloration 2nd/3rd toes, cool to touch. Imp: 55 year old IDDM M with R 2nd/3rd toe ischemic changes, s/p RLE revascularization 1. Will continue with local wound care. Will need to watch the 2nd/3rd toes closely. If they deteriorate he may need amputation in the future. 2. Will place pt in HBO program, local wound care and will need VNS. Will be discharged home, however currently H/H too low for discharge. 3. Will watch closely in [facility]. Mel Almanzar DPM
[2016-07-24 08:16] LABS: PHOSPHOROUS 3.9 mg/dL (2.5-4.9)
[2016-07-24] MEDS ORDERED: PT OWN MED DRAWER 7, Y5N ONE (08:21)
[2016-07-24 08:22] LABS: COCKROFT - GAULT 11.27
[2016-07-24] MEDS: MINOXIDIL 10 MG TABLET PO SCH ×2 (08:39→12:04)
[2016-07-24 08:46] LABS: CREATININE 9.5 mg/dL (0.7-1.3)
[2016-07-24] MEDS ORDERED: VANCOMYCIN 1 GRAM (PRE-DOCKED) 250 ML IVPB SCH ×2 (10:00)
[2016-07-24] MEDS ORDERED: INSULIN (NOVOLOG) ASPART 100 UNITS/ML 10ML VIAL ONE (11:23)
--- NOTE | 2016-07-24 11:23 | PN ---
Progress Note (short form) - Note Progress Note: Patient is lying in bed , at bedside. Temperature 98.2 F 07/24/16 06:55 Pulse Rate 81 07/24/16 10:35 Respiratory Rate 18 07/24/16 10:35 Blood Pressure 176/81 07/24/16 10:35 O2 Sat by Pulse Oximetry (%) 98 07/23/16 21:00 GENERAL: AAOx3, no acute distress HEAD: NC/AT EYES: PERRLA, EOMI, sclera anicteric, conjunctiva clear. No lid lag. EARS, NOSE, THROAT: Ears normal, nares patent, oropharynx clear without exudates. Moist mucous membranes. NECK: Normal range of motion, supple without lymphadenopathy, JVD, or masses. LUNGS:CTAB, No wheezes, and no crackles. No accessory muscle use. HEART:RRR, normal S1 and S2 . ABDOMEN: Soft, NT/ND, BS(+) no guarding, no rebound, no masses. No hepatomegaly or splenomegaly. LOWER EXTREMITIES: 2+ pulses, warm, well-perfused. no calf tenderness. Wound : looks clean RLE. R foot: large post-surgical wound lateral foot with mixed fibrogranular base, increase in granulation tissue, tissue coverage over metatarsal shafts, surrounding necrotic tissue is superficial, no purulence, no fluctuance, no bogginess, no erythema, no ascending cellulitis. Decrease in depth. Ischemic discoloration 2nd/3rd toes, cool to touch. NEUROLOGICAL: Normal speech. gait not observed CBCD WBC 6.9 K/mm3 (4.0-10.0) 07/24/16 07:00 RBC 2.41 M/mm3 (4.00-5.60) L 07/24/16 07:00 Hgb 6.7 GM/dL (11.7-16.9) L* D 07/24/16 07:00 Hct 20.3 % (35.4-49) L D 07/24/16 07:00 MCV 84.5 fl (80-96) 07/24/16 07:00 MCHC 32.7 g/dl (32.0-35.9) 07/24/16 07:00 RDW 16.0 % (11.9-15.9) H 07/24/16 07:00 Plt Count 255 K/MM3 (134-434) 07/24/16 07:00 MPV 7.1 fl (7.5-11.1) L D 07/24/16 07:00 CMP Sodium 134 mmol/L (136-145) L 07/24/16 07:00 Potassium 4.3 mmol/L (3.5-5.1) 07/24/16 07:00 Chloride 94 mmol/L (98-107) L 07/24/16 07:00 Carbon Dioxide 28 mmol/L (21-32) 07/24/16 07:00 Anion Gap 12 (8-16) 07/24/16 07:00 BUN 43 mg/dL (7-18) H D 07/24/16 07:00 Creatinine 9.5 mg/dL (0.7-1.3) H* 07/24/16 07:00 Creat Clearance w eGFR 7.14 (>60) 07/20/16 13:55 Random Glucose 110 mg/dL (74-106) H 07/24/16 07:00 Calcium 8.0 mg/dL (8.5-10.1) L 07/24/16 07:00 Total Bilirubin 0.5 mg/dL (0.2-1.0) 07/20/16 13:55 AST 40 U/L (15-37) H D 07/20/16 13:55 ALT 35 U/L (12-78) D 07/20/16 13:55 Alkaline Phosphatase 109 U/L (45-117) 07/20/16 13:55 Total Protein 7.8 g/dl (6.4-8.2) 07/20/16 13:55 Albumin 2.6 g/dl (3.4-5.0) L 07/20/16 13:55 Current Medications Generic Name Dose Route Start Last Admin Trade Name Freq PRN Reason Stop Dose Admin Clopidogrel Bisulfate 75 mg 07/22/16 13:45 07/23/16 11:26 Plavix - PO 75 mg DAILY [facility]IK Administration Collagenase 1 applic 07/23/16 10:00 07/23/16 17:12 Santyl - TP Not Given DAILY MONIK Vancomycin HCl 250 mls @ 250 mls/hr 07/22/16 16:30 07/22/16 16:50 Vancomycin (Pre-Docked) IVPB 250 mls/hr TUTHSA@1000 [facility]IK Administration Protocol Insulin Aspart 1 vial 07/22/16 16:30 07/24/16 06:11 Novolog Vial Sliding Scale - SQ Not Given ACHS [facility] Protocol Insulin Detemir 6 units 07/22/16 22:00 07/23/16 21:36 Levemir Vial SQ Not Given HS [facility] Minoxidil 10 mg 07/22/16 23:00 07/24/16 08:39 Loniten - PO 10 mg DAILY [facility] Administration Torsemide 20 mg 07/23/16 06:00 07/24/16 06:10 Demadex - PO 20 mg BIDLASIX MONIK Administration Home Medications Medication Instructions Recorded Acetaminophen [Tylenol] 650 mg PO Q4H PRN 07/21/16 Insulin Lispro [Humalog] 6 unit SQ HS 07/21/16 Minoxidil [Loniten -] 10 mg PO DAILY 07/21/16 Torsemide 20 mg PO BID 07/21/16 ASSESSMENT AND PLAN: 55 yo M with significant PMHx. of IDDM, ESRD,HTN , presented with R 2nd/3rd toe ischemic changes # Acute Anemia over chronic, dropped from 8-->6.7 will get transfused 2 units post dialysis as per # Acute Right foot gangrene s/p Aortogram, RLE angiogram, popliteal artery angioplasty , Posterior tibial and peroneal artery angioplasty, Anterior tibial artery atherectomy with angioplasty by Vascular Dr.Nirav Araiza. s/p Dialysis post angioplasty. s/p RLE revascularization continue with local wound care. Will need to watch the 2nd/3rd toes closely. If they deteriorate he may need amputation in the future. might need HBO, local wound care and will need VNS upon discharge. # Acute Diabetic foot with Osteomyelitis :R foot 2nd and 3rd toes show ischemic changes. Osteomyelitis on previous admission , on Vanco IV. dose with dialysis. s/p Angioplasty of popliteal artery , Posterior tibial and peroneal artery , Anterior tibial artery atherectomy with angioplasty by Vascular Dr. Lee Araiza. # Diabetes mellitus with nephropathy on Levemir # ESRD (end stage renal disease) on HD # HTN Uncontrolled on Minoxidil 10mg PO AM .Torsemide 20mg PO DVT Px: on Plavix now post angioplasty discussed with [employer] and Visit type - Emergency Visit Emergency Visit: Yes ED Registration Date: 07/20/16 Care time: The patient presented to the Emergency Department on the above date and was hospitalized for further evaluation of their emergent condition. - New Patient This patient is new to me today: No - Critical Care Critical Care patient: No
[2016-07-24] MEDS: CLOPIDOGREL BISULFATE 75 MG TABLET (FP) PO SCH (11:45)
[2016-07-24] MEDS: VANCOMYCIN 1 GRAM (PRE-DOCKED) 250 ML IVPB SCH (11:54)
--- NOTE | 2016-07-24 12:25 | PN ---
Progress Note, Physician Chief Complaint: 55 y/o male with ESRD, admitted with infected foot ulcer and ischemic toes. The patient has had HD earlier today. Received two units of PRBC since the Hgb was very low. No overt evidence of bleeding. The patient seems a bit depressed that the improvement is not as speedy as he was expecting. - Current Medication List Current Medications: Active Medications Clopidogrel Bisulfate (Plavix -) 75 mg PO DAILY [facility] Last Admin: 07/24/16 11:45 Dose: 75 mg Collagenase (Santyl -) 1 applic TP DAILY [facility] Last Admin: 07/23/16 17:12 Dose: Not Given Vancomycin HCl (Vancomycin (Pre-Docked)) 250 mls @ 250 mls/hr IVPB TUTHSA@1000 [facility] PRN Reason: Protocol Last Admin: 07/24/16 11:54 Dose: Not Given Insulin Aspart (Novolog Vial Sliding Scale -) 1 vial SQ ACHS [facility] PRN Reason: Protocol Last Admin: 07/24/16 11:54 Dose: Not Given Insulin Detemir (Levemir Vial) 6 units SQ HS [facility] Last Admin: 07/23/16 21:36 Dose: Not Given Minoxidil (Loniten -) 10 mg PO DAILY [facility] Last Admin: 07/24/16 12:04 Dose: Not Given Torsemide (Demadex -) 20 mg PO BIDLASIX [facility] Last Admin: 07/24/16 06:10 Dose: 20 mg - Objective Vital Signs: Vital Signs Temperature 99.4 F 07/24/16 11:41 Pulse Rate 84 07/24/16 11:41 Respiratory Rate 18 07/24/16 11:41 Blood Pressure 149/79 07/24/16 11:41 O2 Sat by Pulse Oximetry (%) 97 07/24/16 12:08 Constitutional: Yes: Anxious Eyes: Yes: Conjunctiva Clear Neck: Yes: Trachea Midline Cardiovascular: Yes: Regular Rate and Rhythm, S2 Respiratory: Yes: CTA Bilaterally Gastrointestinal: Yes: Normal Bowel Sounds, Soft. No: Distention, Tenderness Extremities: Yes: Cool, Delayed Capillary Refill Peripheral Pulses WNL: No Labs: CBC, BMP 07/24/16 07:00 07/24/16 07:00 INR, PTT INR 1.33 (0.82-1.09) H 07/21/16 06:08 Problem List - Problems (1) Gangrene of toe of right foot Code(s): I96 - GANGRENE, NOT ELSEWHERE CLASSIFIED (2) Anemia Code(s): D64.9 - ANEMIA, UNSPECIFIED (3) Anemia in ESRD (end-stage renal disease) Code(s): N18.6 - END STAGE RENAL DISEASE D63.1 - ANEMIA IN CHRONIC KIDNEY DISEASE (4) Anemia in other chronic diseases classified elsewhere Code(s): D63.8 - ANEMIA IN OTHER CHRONIC DISEASES CLASSIFIED ELSEWHERE (5) Chronic ulcer of left foot Code(s): L97.529 - NON-PRESSURE CHRONIC ULCER OTH PRT LEFT FOOT W UNSP SEVERITY Qualifiers: Non-pressure ulcer stage: unspecified non-pressure ulcer stage Qualified Code(s): L97.529 - Non-pressure chronic ulcer of other part of left foot with unspecified severity (6) Controlled type 2 diabetes mellitus with foot ulcer Code(s): E11.621 - TYPE 2 DIABETES MELLITUS WITH FOOT ULCER L97.509 - NON-PRESSURE CHRONIC ULCER OTH PRT UNSP FOOT W UNSP SEVERITY (7) ESRD needing dialysis Code(s): N18.6 - END STAGE RENAL DISEASE (8) HTN (hypertension) Code(s): I10 - ESSENTIAL (PRIMARY) HYPERTENSION Qualifiers: Hypertension type: essential hypertension Qualified Code(s): I10 - Essential (primary) hypertension (9) Type 2 diabetes mellitus with foot ulcer Code(s): E11.621 - TYPE 2 DIABETES MELLITUS WITH FOOT ULCER L97.509 - NON-PRESSURE CHRONIC ULCER OTH PRT UNSP FOOT W UNSP SEVERITY Qualifiers: (10) Wound infection Code(s): T14.8 - OTHER INJURY OF UNSPECIFIED BODY REGION L08.9 - LOCAL INFECTION OF THE SKIN AND SUBCUTANEOUS TISSUE, UNSP Assessment/Plan 55 y/o male with ESRD admitted with infected foot ulcer and gangrenous toes. The patient had uneventful HD earlier, with PRBC transfusion. Antibiotics to continue. Wound care as outlined. may benefit from Hyperbaric O2 chamber. Sarah Marks MD
[2016-07-24] MEDS: COLLAGENASE CLOSTRIDIUM HIST. 30 GRAMS TUBE TP SCH (13:25)
[2016-07-24] MEDS: INSULIN DETEMIR 100 UNITS/ML MDV SQ SCH (21:49)
[2016-07-25] MEDS: INSULIN SLIDING SCALE (NOVOLOG) 1 VIAL SQ SCH ×4 (06:13→21:53)
[2016-07-25] MEDS: TORSEMIDE 20 MG TABLET (FP) PO SCH ×2 (06:13→13:51)
[2016-07-25] MEDS ORDERED: LABETALOL HCL 5 MG/1 ML (100MG/20 ML VIAL) IVPUSH ONE (06:41)
[2016-07-25] MEDS ORDERED: LABETALOL HCL 100 MG TABLET (FP) PO ONE (06:48)
--- NOTE | 2016-07-25 07:27 | HOSP ---
Subjective - Review of Symptoms Events since last encounter: 55 year old Gentleman with PMhx of ESRD on HD (TTS), DM, Hypertension, PVD, recent admission for osteomylitis who was sent to the ED for discolored toes and admitted for distal ischemia. -called to evaluate patient for high blood pressure; 207/98 General: No: Chills, Night Sweats HEENT: Yes: Other. No: Head Aches, Visual Changes, Eye Pain Pulmonary: No: Dyspnea, Cough, Pleuritic Chest Pain Cardiovascular: No: Chest Pain, Palpitations, Orthopnea, Light Headedness Gastrointestinal: No: Nausea, Vomiting Neurological: No: Weakness, Numbness, Confusion Physical Examination Vital Signs: Vital Signs Temperature 98 F 07/25/16 05:44 Pulse Rate 84 07/25/16 06:40 Respiratory Rate 20 07/25/16 06:40 Blood Pressure 207/98 07/25/16 06:40 O2 Sat by Pulse Oximetry (%) 98 07/24/16 21:00 Constitutional: Yes: Well Nourished, No Distress, Calm Eyes: Yes: Conjunctiva Clear, Other (no papil edmea) HENT: Yes: Atraumatic, Normocephalic Cardiovascular: Yes: Regular Rate and Rhythm, S1, S2 Respiratory: Yes: Regular, CTA Bilaterally Gastrointestinal: Yes: Normal Bowel Sounds, Soft, Other (no abdominal bruits). No: Pulsatile Mass Extremities: Yes: Other (wrapped dressing, feet wrapped) Edema: No Peripheral Pulses: Left Radial: 2+, Right Radial: 2+ Neurological: Yes: Alert, Oriented Labs: CBC, BMP 07/24/16 07:00 07/24/16 07:00 Hospitalist Encounter Assessment: 55 year old Gentleman with PMhx of ESRD on HD (TTS), DM, Hypertension, PVD, recent admission for Osteomylitis who was sent to the ED for discolored toes and admitted for distal ischemia. #severe hypertension: -labetalol 100mg po 1x -frequent bp monitoring -if bp does not decrease with in hour call md Visit type - Emergency Visit Emergency Visit: Yes ED Registration Date: 07/20/16 Care time: The patient presented to the Emergency Department on the above date and was hospitalized for further evaluation of their emergent condition. - New Patient This patient is new to me today: Yes Date on this admission: 07/25/16 - Critical Care Critical Care patient: No
[2016-07-25 09:03] LABS: CALCIUM 8.3 mg/dL (8.5-10.1)
[2016-07-25 09:06] LABS: BASOPHIL 0.9 % (0-2.0); EOSINOPHIL 6.4 % (0-4.5); MCH 27.9 pg (25.7-33.7); MCHC 33.1 g/dl (32.0-35.9); MEAN CELL VOLUME 84.2 fl (80-96); MEAN PLT VOLUME 7.1 fl (7.5-11.1); NEUTROPHILS 56.8 % (42.8-82.8); PLATELET COUNT 265 K/MM3 (134-434); RDW 14.8 % (11.9-15.9); WHITE BLOOD COUNT 7.8 K/mm3 (4.0-10.0)
[2016-07-25 09:09] LABS: COCKROFT - GAULT 13.55
--- NOTE | 2016-07-25 09:19 | PN ---
Teaching Attending Note Name of Resident: Steven Constantino ATTENDING PHYSICIAN STATEMENT I saw and evaluated the patient. I reviewed the resident's note and discussed the case with the resident. I agree with the resident's findings and plan as documented. SUBJECTIVE: Patient is feeling better, with no acute distress. OBJECTIVE: Vital Signs Temperature 98.2 F 07/25/16 08:00 Pulse Rate 84 07/25/16 08:00 Respiratory Rate 18 07/25/16 08:00 Blood Pressure 166/92 07/25/16 08:00 O2 Sat by Pulse Oximetry (%) 98 07/25/16 09:00 CBCD WBC 7.8 K/mm3 (4.0-10.0) 07/25/16 08:34 RBC 3.04 M/mm3 (4.00-5.60) L D 07/25/16 08:34 Hgb 8.5 GM/dL (11.7-16.9) L D 07/25/16 08:34 Hct 25.6 % (35.4-49) L D 07/25/16 08:34 MCV 84.2 fl (80-96) 07/25/16 08:34 MCHC 33.1 g/dl (32.0-35.9) 07/25/16 08:34 RDW 14.8 % (11.9-15.9) 07/25/16 08:34 Plt Count 265 K/MM3 (134-434) 07/25/16 08:34 MPV 7.1 fl (7.5-11.1) L 07/25/16 08:34 CMP Sodium 136 mmol/L (136-145) 07/25/16 08:34 Potassium 4.0 mmol/L (3.5-5.1) 07/25/16 08:34 Chloride 96 mmol/L (98-107) L 07/25/16 08:34 Carbon Dioxide 31 mmol/L (21-32) 07/25/16 08:34 Anion Gap 9 (8-16) 07/25/16 08:34 BUN 40 mg/dL (7-18) H 07/25/16 08:34 Creatinine 9.5 mg/dL (0.7-1.3) H* 07/24/16 07:00 Creat Clearance w eGFR 7.14 (>60) 07/20/16 13:55 Random Glucose 112 mg/dL (74-106) H 07/25/16 08:34 Calcium 8.3 mg/dL (8.5-10.1) L 07/25/16 08:34 Total Bilirubin 0.5 mg/dL (0.2-1.0) 07/20/16 13:55 AST 40 U/L (15-37) H D 07/20/16 13:55 ALT 35 U/L (12-78) D 07/20/16 13:55 Alkaline Phosphatase 109 U/L (45-117) 07/20/16 13:55 Total Protein 7.8 g/dl (6.4-8.2) 07/20/16 13:55 Albumin 2.6 g/dl (3.4-5.0) L 07/20/16 13:55 Current Medications Generic Name Dose Route Start Last Admin Trade Name Freq PRN Reason Stop Dose Admin Clopidogrel Bisulfate 75 mg 07/22/16 13:45 07/24/16 11:45 Plavix - PO 75 mg DAILY [facility] Administration Collagenase 1 applic 07/23/16 10:00 07/24/16 13:25 Santyl - TP 1 applic DAILY [facility] Administration Vancomycin HCl 250 mls @ 250 mls/hr 07/22/16 16:30 07/24/16 11:54 Vancomycin (Pre-Docked) IVPB Not Given TUTHSA@1000 [facility] Protocol Insulin Aspart 1 vial 07/22/16 16:30 07/25/16 06:13 Novolog Vial Sliding Scale - SQ Not Given ACHS [facility] Protocol Insulin Detemir 6 units 07/22/16 22:00 07/24/16 21:49 Levemir Vial SQ Not Given HS [facility] Minoxidil 10 mg 07/22/16 23:00 07/24/16 12:04 Loniten - PO Not Given DAILY MONIK Torsemide 20 mg 07/23/16 06:00 07/25/16 06:13 Demadex - PO 20 mg BIDLASIX MONIK Administration Home Medications Medication Instructions Recorded Acetaminophen [Tylenol] 650 mg PO Q4H PRN 07/21/16 Insulin Lispro [Humalog] 6 unit SQ HS 07/21/16 Minoxidil [Loniten -] 10 mg PO DAILY 07/21/16 Torsemide 20 mg PO BID 07/21/16 ASSESSMENT AND PLAN: 55 yo M with significant PMHx. of IDDM, ESRD,HTN , presented with R 2nd/3rd toe ischemic changes # Hypertensive Emergency: will add Labetolol to his regimen 100mg po bid , if Needed will increase further. # Acute Anemia over chronic, dropped from 8-->6.7 will get transfused 2 units post dialysis as per # Acute Right foot gangrene s/p Aortogram, RLE angiogram, popliteal artery angioplasty , Posterior tibial and peroneal artery angioplasty, Anterior tibial artery atherectomy with angioplasty by Vascular Dr.Nirav Araiza. s/p Dialysis post angioplasty. s/p RLE revascularization continue with local wound care. Will need to watch the 2nd/3rd toes closely. If they deteriorate he may need amputation in the future. might need HBO, local wound care and will need VNS upon discharge. # Acute Diabetic foot with Osteomyelitis :R foot 2nd and 3rd toes show ischemic changes. Osteomyelitis on previous admission , on Vanco IV. dose with dialysis. s/p Angioplasty of popliteal artery , Posterior tibial and peroneal artery , Anterior tibial artery atherectomy with angioplasty by Vascular Dr. Lee Araiza. # Diabetes mellitus with nephropathy on Levemir # ESRD (end stage renal disease) on HD # HTN Uncontrolled on Minoxidil 10mg PO AM .Torsemide 20mg PO DVT Px: on Plavix now post angioplasty discussed with Senior Pricing Analyst and
[2016-07-25 09:33] LABS: CREATININE 7.9 mg/dL (0.7-1.3)
--- NOTE | 2016-07-25 09:33 | PN ---
Physical Exam: SUBJECTIVE: Patient seen and examined at bedside. Acute hypertensive urgency this morning. No new complaints. Denies CP,MICHAEL, SOB, palpitations, abd.pain, N/V. OBJECTIVE: Vital Signs Period Temp Pulse Resp BP Sys/Salas Pulse Ox Last 24 Hr 98 F-99.4 F 81-87 18-20 147-207/74-100 97-98 GENERAL: AAOx3, no acute distress HEAD: NC/AT EYES: PERRLA, EOMI, sclera anicteric, conjunctiva clear. No lid lag. EARS, NOSE, THROAT: Ears normal, nares patent, oropharynx clear without exudates. Moist mucous membranes. NECK: Normal range of motion, supple without lymphadenopathy, JVD, or masses. LUNGS:CTAB, No wheezes, and no crackles. No accessory muscle use. HEART:RRR, normal S1 and S2 . ABDOMEN: Soft, NT/ND, BS(+) no guarding, no rebound, no masses. No hepatomegaly or splenomegaly. LOWER EXTREMITIES: 2+ pulses, warm, well-perfused. no calf tenderness. No peripheral edema. Plantar Left foot ulcer on hallux IPJ with no signs of infection.Right foot s/p amputation of 4/5 phalange. wound appears clean, no purulent drainage.tenderness to palpation. Ischemic changes of 2nd and 3rd toe. NEUROLOGICAL: Normal speech. gait not observed Laboratory Results - last 24 hr 07/24/16 07/24/16 07/24/16 11:43 16:18 21:47 WBC RBC Hgb Hct MCV MCHC RDW Plt Count MPV Neutrophils % Lymphocytes % Monocytes % Eosinophils % Basophils % Sodium Potassium Chloride Carbon Dioxide Anion Gap BUN POC Glucometer 184 150 122 Random Glucose Calcium 07/25/16 07/25/16 07/25/16 06:10 08:34 08:34 WBC 7.8 RBC 3.04 L D Hgb 8.5 L D Hct 25.6 L D MCV 84.2 MCHC 33.1 RDW 14.8 Plt Count 265 MPV 7.1 L Neutrophils % 56.8 Lymphocytes % 22.9 Monocytes % 13.0 H Eosinophils % 6.4 H Basophils % 0.9 Sodium 136 Potassium 4.0 Chloride 96 L Carbon Dioxide 31 Anion Gap 9 BUN 40 H POC Glucometer 111 Random Glucose 112 H Calcium 8.3 L Active Medications Generic Name Dose Route Start Last Admin Trade Name Freq PRN Reason Stop Dose Admin Clopidogrel Bisulfate 75 mg 07/22/16 13:45 07/24/16 11:45 Plavix - PO 75 mg DAILY [facility] Administration Collagenase 1 applic 07/23/16 10:00 07/24/16 13:25 Santyl - TP 1 applic DAILY [facility] Administration Vancomycin HCl 250 mls @ 250 mls/hr 07/22/16 16:30 07/24/16 11:54 Vancomycin (Pre-Docked) IVPB Not Given TUTHSA@1000 [facility] Protocol Insulin Aspart 1 vial 07/22/16 16:30 07/25/16 06:13 Novolog Vial Sliding Scale - SQ Not Given ACHS [facility] Protocol Insulin Detemir 6 units 07/22/16 22:00 07/24/16 21:49 Levemir Vial SQ Not Given HS [facility] Labetalol HCl 100 mg 07/25/16 10:00 Normodyne - PO BID [facility] Minoxidil 10 mg 07/22/16 23:00 07/24/16 12:04 Loniten - PO Not Given DAILY [facility] Torsemide 20 mg 07/23/16 06:00 07/25/16 06:13 Demadex - PO 20 mg BIDLASIX [facility] Administration ASSESSMENT/PLAN: 55 yo M with significant PMHx. of IDDM, ESRD,HTN and chronic foot ulcers admitted evaluation of diabetic foot. Problem List - Problems (1) Diabetic foot Assessment/Plan: * Seen by Dr. Almanzar who recommends close vigilence of toes and enrolled him in HBO therapy * He does not want to return to rehab and would perfer VNS services at home if possible. * POD # 3 S/P Aortogram, RLE angiogram, popliteal artery DCB angioplasty , Posterior tibial and peroneal artery angioplasty, Anterior tibial artery atherectomy with angioplasty * R foot 2nd and 3rd toes show ischemic changes. * Osteomyelitis noted on previous admission continue Vanco IV. dose with dialysis. (2) Diabetes mellitus with nephropathy Assessment/Plan: * Renal/ADA diet * ISS AC * BGM ACHS * Levemir 6 Units HS (3) ESRD (end stage renal disease) Assessment/Plan: * Dialyzed yesterday. * Renal diet * avoid nephrotoxins. * renal dose meds. * repeat AM labs. (4) HTN (hypertension) Assessment/Plan: * there was and episode of Hypertensive urgency this morning SBP 207 that resolved with administration of Labetolol 100mg PO * Will continue * Minoxidil 10mg PO AM * Torsemide 20mgPO * Hold for SBP <90 Visit type - Emergency Visit Emergency Visit: Yes ED Registration Date: 07/20/16 Care time: The patient presented to the Emergency Department on the above date and was hospitalized for further evaluation of their emergent condition. - New Patient This patient is new to me today: No - Critical Care Critical Care patient: No - Discharge Referral Referred to [facility] Med P.C.: No
[2016-07-25] MEDS ORDERED: PT OWN MED DRAWER 7, Y5N ONE (09:57)
[2016-07-25] MEDS: CLOPIDOGREL BISULFATE 75 MG TABLET (FP) PO SCH (10:02)
[2016-07-25] MEDS: MINOXIDIL 10 MG TABLET PO SCH (10:02)
[2016-07-25] MEDS: LABETALOL HCL 100 MG TABLET (FP) PO SCH ×2 (10:03→21:51)
--- NOTE | 2016-07-25 12:26 | PN ---
Progress Note, Physician Chief Complaint: 55 y/o male with ESRD, admitted with infected foot ulcer and ischemic toes. Had a Hypertensive urgency this morning. Not precipitated by anything specific. Feels well. BP better now. No fever. - Current Medication List Current Medications: Active Medications Clopidogrel Bisulfate (Plavix -) 75 mg PO DAILY [facility] Last Admin: 07/25/16 10:02 Dose: 75 mg Collagenase (Santyl -) 1 applic TP DAILY [facility] Last Admin: 07/24/16 13:25 Dose: 1 applic Vancomycin HCl (Vancomycin (Pre-Docked)) 250 mls @ 250 mls/hr IVPB TUTHSA@1000 [facility] PRN Reason: Protocol Last Admin: 07/24/16 11:54 Dose: Not Given Insulin Aspart (Novolog Vial Sliding Scale -) 1 vial SQ ACHS [facility] PRN Reason: Protocol Last Admin: 07/25/16 11:27 Dose: Not Given Insulin Detemir (Levemir Vial) 6 units SQ HS [facility] Last Admin: 07/24/16 21:49 Dose: Not Given Labetalol HCl (Normodyne -) 100 mg PO BID [facility] Last Admin: 07/25/16 10:03 Dose: Not Given Minoxidil (Loniten -) 10 mg PO DAILY [facility] Last Admin: 07/25/16 10:02 Dose: 10 mg Torsemide (Demadex -) 20 mg PO BIDLASIX [facility] Last Admin: 07/25/16 06:13 Dose: 20 mg - Objective Vital Signs: Vital Signs Temperature 98.2 F 07/25/16 08:00 Pulse Rate 80 07/25/16 09:00 Respiratory Rate 18 07/25/16 09:00 Blood Pressure 156/88 07/25/16 09:00 O2 Sat by Pulse Oximetry (%) 98 07/25/16 09:00 Constitutional: Yes: Well Nourished, No Distress HENT: Yes: Normocephalic Neck: Yes: Trachea Midline Cardiovascular: Yes: Regular Rate and Rhythm, S1, S2 Respiratory: Yes: CTA Bilaterally Gastrointestinal: Yes: Normal Bowel Sounds, Soft Wound/Incision: Yes: Dressing Dry and Intact Labs: CBC, BMP 07/25/16 08:34 07/25/16 08:34 INR, PTT INR 1.33 (0.82-1.09) H 07/21/16 06:08 Problem List - Problems (1) Gangrene of toe of right foot Code(s): I96 - GANGRENE, NOT ELSEWHERE CLASSIFIED (2) Anemia Code(s): D64.9 - ANEMIA, UNSPECIFIED (3) Anemia in ESRD (end-stage renal disease) Code(s): N18.6 - END STAGE RENAL DISEASE D63.1 - ANEMIA IN CHRONIC KIDNEY DISEASE (4) Anemia in other chronic diseases classified elsewhere Code(s): D63.8 - ANEMIA IN OTHER CHRONIC DISEASES CLASSIFIED ELSEWHERE (5) Chronic ulcer of left foot Code(s): L97.529 - NON-PRESSURE CHRONIC ULCER OTH PRT LEFT FOOT W UNSP SEVERITY Qualifiers: Non-pressure ulcer stage: unspecified non-pressure ulcer stage Qualified Code(s): L97.529 - Non-pressure chronic ulcer of other part of left foot with unspecified severity (6) Controlled type 2 diabetes mellitus with foot ulcer Code(s): E11.621 - TYPE 2 DIABETES MELLITUS WITH FOOT ULCER L97.509 - NON-PRESSURE CHRONIC ULCER OTH PRT UNSP FOOT W UNSP SEVERITY (7) ESRD needing dialysis Code(s): N18.6 - END STAGE RENAL DISEASE (8) HTN (hypertension) Code(s): I10 - ESSENTIAL (PRIMARY) HYPERTENSION Qualifiers: Hypertension type: essential hypertension Qualified Code(s): I10 - Essential (primary) hypertension (9) Type 2 diabetes mellitus with foot ulcer Code(s): E11.621 - TYPE 2 DIABETES MELLITUS WITH FOOT ULCER L97.509 - NON-PRESSURE CHRONIC ULCER OTH PRT UNSP FOOT W UNSP SEVERITY Qualifiers: (10) Wound infection Code(s): T14.8 - OTHER INJURY OF UNSPECIFIED BODY REGION L08.9 - LOCAL INFECTION OF THE SKIN AND SUBCUTANEOUS TISSUE, UNSP Assessment/Plan 55 y/o male with ESRD admitted with infected foot ulcer and gangrenous toes. Had uneventful HD yesterday. Accelerated Hypertension... Bp in better range now. Will continue the Minoxidil / Labetalol. Wound care as outlined. Should consider Hyperbaric O2 for wound care. Sarah Marks MD
--- NOTE | 2016-07-25 13:23 | PN ---
Progress Note (short form) - Note Progress Note: Podiatry: Seen and evaluated at bedside, NAD. Pain controlled, denies F/V/N/C/SOB/CP. S/ p RLE revascularization with Dr. Araiza for ischemic changes 2nd/3rd toes. Afebrile, VSS. ABDIAS: R foot: post-surgical wounds 4th/5th rays with fibrogranular base, no purulence , surrounding superficial eschar, no fluctuance, no soft tissue crepitus, no signs of active infection. 2nd and 3rd digits cool to touch with ischemic changes. Imp: 55 year old IDDM M s/p R 4th/5th ray amputation and RLE revascularization for ischemic changes 2nd/3rd toes. 1. IV abx per ID 2. Needs home nursing services for santyl + DSD daily to R foot 3. Will hold off on VAC placement for now 4. HBO Tx as outpatient 5. I have discussed with patient the potential for trans-metatarsal amputation and he understands. Hopefully the 2nd/3rd toes show improvement with hyperbaric oxygen therapy. Will watch closely in wound care center. Mel Almanzar DPM
[2016-07-25] MEDS: COLLAGENASE CLOSTRIDIUM HIST. 30 GRAMS TUBE TP SCH (13:52)
[2016-07-25] MEDS: INSULIN DETEMIR 100 UNITS/ML MDV SQ SCH (21:53)
[2016-07-26] MEDS: TORSEMIDE 20 MG TABLET (FP) PO SCH ×2 (05:47→14:49)
[2016-07-26] MEDS: INSULIN SLIDING SCALE (NOVOLOG) 1 VIAL SQ SCH ×4 (06:17→22:04)
[2016-07-26 07:31] LABS: MCH 27.8 pg (25.7-33.7); MCHC 33.1 g/dl (32.0-35.9); MEAN CELL VOLUME 84.1 fl (80-96); MEAN PLT VOLUME 7.2 fl (7.5-11.1); PLATELET COUNT 240 K/MM3 (134-434); RDW 15.1 % (11.9-15.9); WHITE BLOOD COUNT 7.9 K/mm3 (4.0-10.0)
[2016-07-26 08:12] LABS: CALCIUM 7.9 mg/dL (8.5-10.1); COCKROFT - GAULT 10.49
[2016-07-26 09:19] LABS: CREATININE 10.2 mg/dL (0.7-1.3)
[2016-07-26] MEDS ORDERED: PT OWN MED DRAWER 7, Y5N ONE (10:00)
[2016-07-26] MEDS: CLOPIDOGREL BISULFATE 75 MG TABLET (FP) PO SCH (10:24)
[2016-07-26] MEDS: LABETALOL HCL 100 MG TABLET (FP) PO SCH ×2 (10:24→22:04)
[2016-07-26] MEDS: MINOXIDIL 10 MG TABLET PO SCH (10:25)
--- NOTE | 2016-07-26 11:31 | PN ---
Progress Note (short form) - Note Progress Note: Renal Follow up for ESRD on HD Pt seen and examined at the bedside no acute complaints continues to have tingling in the foot no sob, chest pain, fever, chills Vital Signs Temperature 98.8 F 07/26/16 08:58 Pulse Rate 78 07/26/16 08:58 Respiratory Rate 18 07/26/16 08:58 Blood Pressure 164/71 07/26/16 08:58 O2 Sat by Pulse Oximetry (%) 94 L 07/26/16 09:00 Intake & Output 07/23/16 07/24/16 07/25/16 07/26/16 23:59 23:59 23:59 23:59 Intake Total 200 470 440 Balance 200 470 440 Gen: NAD, awake and alert CVS: RRR, No M/R Lungs: CTA, no rales or wheeze Abd: Soft NT/ND Ext: Right foot is in dressing Access: AVF CBC, BMP 07/26/16 06:10 07/26/16 06:10 Current Medications Clopidogrel Bisulfate (Plavix -) 75 mg PO DAILY [facility] Last Admin: 07/26/16 10:24 Dose: 75 mg Collagenase (Santyl -) 1 applic TP DAILY [facility] Last Admin: 07/25/16 13:52 Dose: 1 applic Vancomycin HCl (Vancomycin (Pre-Docked)) 250 mls @ 250 mls/hr IVPB TUTHSA@1000 [facility] PRN Reason: Protocol Last Admin: 07/24/16 11:54 Dose: Not Given Insulin Aspart (Novolog Vial Sliding Scale -) 1 vial SQ ACHS [facility] PRN Reason: Protocol Last Admin: 07/26/16 06:17 Dose: Not Given Insulin Detemir (Levemir Vial) 6 units SQ HS [facility] Last Admin: 07/25/16 21:53 Dose: Not Given Labetalol HCl (Normodyne -) 100 mg PO BID [facility] Last Admin: 07/26/16 10:24 Dose: 100 mg Minoxidil (Loniten -) 10 mg PO DAILY [facility] Last Admin: 07/26/16 10:25 Dose: 10 mg Torsemide (Demadex -) 20 mg PO BIDLASIX [facility] Last Admin: 07/26/16 05:47 Dose: 20 mg A/P 55 year old Gentleman with PMhx of ESRD on HD (TTS), DM, Hypertension, PVD, recent admission for Osteomylitis who was sent to the ED for discolored toes and admitted for distal ischemia. #Distal Ischemia/PVD/Osteomylitis s/p Angiogram with angioplasty Vascular and Podiatry follow up continue Vanco with HD, will check levels Hyperbaric O2 as per Vascular/Podiatry #ESRD on HD for dialysis tomorrow #Hypertension Continue Minoxiidil, Labetalol and Torsemide #DM Continue insulin sliding scale #CKD Related Anemia will give high Dose Epogen TIW with HD s/p transfusion this weekend #Renal Osteodystrophy Trend Phos levels Cm Torres DO
[2016-07-26] MEDS: COLLAGENASE CLOSTRIDIUM HIST. 30 GRAMS TUBE TP SCH (13:13)
--- NOTE | 2016-07-26 15:46 | PN ---
Physical Exam: SUBJECTIVE: Patient seen and examined at bedside. No overnight events. No new complaints. Denies CP,MICHAEL, SOB, palpitation, abd.pain, N/V. OBJECTIVE: Vital Signs Period Temp Pulse Resp BP Sys/Salas Pulse Ox Last 24 Hr 97.2 F-99.7 F 74-84 16-18 140-176/65-85 94-98 GENERAL: AAOx3, no acute distress HEAD: NC/AT EYES: PERRLA, EOMI, sclera anicteric, conjunctiva clear. No lid lag. EARS, NOSE, THROAT: Ears normal, nares patent, oropharynx clear without exudates. Moist mucous membranes. NECK: Normal range of motion, supple without lymphadenopathy, JVD, or masses. LUNGS:CTAB, No wheezes, and no crackles. No accessory muscle use. HEART:RRR, normal S1 and S2 . ABDOMEN: Soft, NT/ND, BS(+) no guarding, no rebound, no masses. No hepatomegaly or splenomegaly. LOWER EXTREMITIES: 2+ pulses, warm, well-perfused. no calf tenderness. No peripheral edema. Plantar Left foot ulcer on hallux IPJ with no signs of infection.Right foot s/p amputation of 4/5 phalange. wound appears clean, no purulent drainage.tenderness to palpation. Ischemic changes of 2nd and 3rd toe. NEUROLOGICAL: Normal speech. gait not observe Laboratory Results - last 24 hr 07/25/16 07/25/16 07/26/16 16:22 21:50 05:46 WBC RBC Hgb Hct MCV MCHC RDW Plt Count MPV Sodium Potassium Chloride Carbon Dioxide Anion Gap BUN Creatinine POC Glucometer 137 159 126 Random Glucose Calcium 07/26/16 07/26/16 07/26/16 06:10 06:10 11:27 WBC 7.9 RBC 2.92 L Hgb 8.1 L Hct 24.5 L MCV 84.1 MCHC 33.1 RDW 15.1 Plt Count 240 MPV 7.2 L Sodium 136 Potassium 4.4 Chloride 94 L Carbon Dioxide 26 Anion Gap 16 BUN 56 H D Creatinine 10.2 H* D POC Glucometer 144 Random Glucose 113 H Calcium 7.9 L Active Medications Generic Name Dose Route Start Last Admin Trade Name Freq PRN Reason Stop Dose Admin Clopidogrel Bisulfate 75 mg 07/22/16 13:45 07/26/16 10:24 Plavix - PO 75 mg DAILY [facility] Administration Collagenase 1 applic 07/23/16 10:00 07/26/16 13:13 Santyl - TP 1 applic DAILY [facility] Administration Vancomycin HCl 250 mls @ 250 mls/hr 07/22/16 16:30 07/24/16 11:54 Vancomycin (Pre-Docked) IVPB Not Given TUTHSA@1000 [facility] Protocol Insulin Aspart 1 vial 07/22/16 16:30 07/26/16 11:29 Novolog Vial Sliding Scale - SQ Not Given ACHS [facility] Protocol Insulin Detemir 6 units 07/22/16 22:00 07/25/16 21:53 Levemir Vial SQ Not Given HS [facility] Labetalol HCl 100 mg 07/25/16 10:00 07/26/16 10:24 Normodyne - PO 100 mg BID [facility] Administration Minoxidil 10 mg 07/22/16 23:00 07/26/16 10:25 Loniten - PO 10 mg DAILY [facility] Administration Torsemide 20 mg 07/23/16 06:00 07/26/16 14:49 Demadex - PO 20 mg BIDLASIX [facility] Administration ASSESSMENT/PLAN: 55 yo M with significant PMHx. of IDDM, ESRD,HTN and chronic foot ulcers admitted evaluation of diabetic foot. Problem List - Problems (1) Diabetic foot Assessment/Plan: * manager relocation working on VNS and home wound care. * Wound care consist of daily santyl application and placement of dry sterile dressing to right foot. * Seen by Dr. Almanzar who recommends close vigilence of toes and enrolled him in HBO therapy ; * Hold wound vac for now. * POD # 4 S/P Aortogram, RLE angiogram, popliteal artery DCB angioplasty , Posterior tibial and peroneal artery angioplasty, Anterior tibial artery atherectomy with angioplasty * R foot 2nd and 3rd toes show ischemic changes. * Osteomyelitis noted on previous admission continue Vanco IV. dose with dialysis. (2) ESRD (end stage renal disease) Assessment/Plan: * Dialyze tomorrow and dose vanco * Renal diet * avoid nephrotoxins. * renal dose meds. * repeat AM labs. (3) Diabetes mellitus with nephropathy Assessment/Plan: * Renal/ADA diet * ISS AC * BGM ACHS * Levemir 6 Units HS (4) HTN (hypertension) Assessment/Plan: * Will continue * Labetolol 100mg PO * Minoxidil 10mg PO AM * Torsemide 20mgPO * Hold for SBP <90 Visit type - Emergency Visit Emergency Visit: Yes ED Registration Date: 07/20/16 Care time: The patient presented to the Emergency Department on the above date and was hospitalized for further evaluation of their emergent condition. - New Patient This patient is new to me today: No - Critical Care Critical Care patient: No - Discharge Referral Referred to [facility] Med P.C.: No
--- NOTE | 2016-07-26 20:02 | PN ---
Teaching Attending Note Name of Resident: Steven Constantino ATTENDING PHYSICIAN STATEMENT I saw and evaluated the patient. I reviewed the resident's note and discussed the case with the resident. I agree with the resident's findings and plan as documented. SUBJECTIVE: Patient is feeling better, with no acute distress, wants to go home. OBJECTIVE: Vital Signs Temperature 98.1 F 07/26/16 14:43 Pulse Rate 74 07/26/16 14:43 Respiratory Rate 18 07/26/16 08:58 Blood Pressure 141/70 07/26/16 14:43 O2 Sat by Pulse Oximetry (%) 94 L 07/26/16 09:00 CBCD WBC 7.9 K/mm3 (4.0-10.0) 07/26/16 06:10 RBC 2.92 M/mm3 (4.00-5.60) L 07/26/16 06:10 Hgb 8.1 GM/dL (11.7-16.9) L 07/26/16 06:10 Hct 24.5 % (35.4-49) L 07/26/16 06:10 MCV 84.1 fl (80-96) 07/26/16 06:10 MCHC 33.1 g/dl (32.0-35.9) 07/26/16 06:10 RDW 15.1 % (11.9-15.9) 07/26/16 06:10 Plt Count 240 K/MM3 (134-434) 07/26/16 06:10 MPV 7.2 fl (7.5-11.1) L 07/26/16 06:10 CMP Sodium 136 mmol/L (136-145) 07/26/16 06:10 Potassium 4.4 mmol/L (3.5-5.1) 07/26/16 06:10 Chloride 94 mmol/L (98-107) L 07/26/16 06:10 Carbon Dioxide 26 mmol/L (21-32) 07/26/16 06:10 Anion Gap 16 (8-16) 07/26/16 06:10 BUN 56 mg/dL (7-18) H D 07/26/16 06:10 Creatinine 10.2 mg/dL (0.7-1.3) H* D 07/26/16 06:10 Creat Clearance w eGFR 7.14 (>60) 07/20/16 13:55 Random Glucose 113 mg/dL (74-106) H 07/26/16 06:10 Calcium 7.9 mg/dL (8.5-10.1) L 07/26/16 06:10 Total Bilirubin 0.5 mg/dL (0.2-1.0) 07/20/16 13:55 AST 40 U/L (15-37) H D 07/20/16 13:55 ALT 35 U/L (12-78) D 07/20/16 13:55 Alkaline Phosphatase 109 U/L (45-117) 07/20/16 13:55 Total Protein 7.8 g/dl (6.4-8.2) 07/20/16 13:55 Albumin 2.6 g/dl (3.4-5.0) L 07/20/16 13:55 Current Medications Generic Name Dose Route Start Last Admin Trade Name Freq PRN Reason Stop Dose Admin Clopidogrel Bisulfate 75 mg 07/22/16 13:45 07/26/16 10:24 Plavix - PO 75 mg DAILY [facility] Administration Collagenase 1 applic 07/23/16 10:00 07/26/16 13:13 Santyl - TP 1 applic DAILY [facility] Administration Vancomycin HCl 250 mls @ 250 mls/hr 07/22/16 16:30 07/24/16 11:54 Vancomycin (Pre-Docked) IVPB Not Given TUTHSA@1000 [facility] Protocol Insulin Aspart 1 vial 07/22/16 16:30 07/26/16 17:17 Novolog Vial Sliding Scale - SQ Not Given ACHS [facility] Protocol Insulin Detemir 6 units 07/22/16 22:00 07/25/16 21:53 Levemir Vial SQ Not Given [facility] Labetalol HCl 100 mg 07/25/16 10:00 07/26/16 10:24 Normodyne - PO 100 mg BID [facility] Administration Minoxidil 10 mg 07/22/16 23:00 07/26/16 10:25 Loniten - PO 10 mg DAILY [facility] Administration Torsemide 20 mg 07/23/16 06:00 07/26/16 14:49 Demadex - PO 20 mg BIDLASIX [facility] Administration Home Medications Medication Instructions Recorded Acetaminophen [Tylenol] 650 mg PO Q4H PRN 07/21/16 Insulin Lispro [Humalog] 6 unit SQ HS 07/21/16 Minoxidil [Loniten -] 10 mg PO DAILY 07/21/16 Torsemide 20 mg PO BID 07/21/16 PE: per resident's note A/P: 55 yo M with significant PMHx. of IDDM, ESRD,HTN , presented with R 2nd/3rd toe ischemic changes # Hypertensive Emergency: BP is better controlled post Labetolol , will continue Labetolol further. # Acute Anemia over chronic, dropped from 8-->6.7 will get transfused 2 units post dialysis as per # Acute Right foot gangrene s/p Aortogram, RLE angiogram, popliteal artery angioplasty , Posterior tibial and peroneal artery angioplasty, Anterior tibial artery atherectomy with angioplasty by Vascular Dr.Nirav Araiza. s/p Dialysis post angioplasty. s/p RLE revascularization continue with local wound care. Will need to watch the 2nd/3rd toes closely. If they deteriorate he may need amputation in the future. might need HBO, local wound care and will need VNS upon discharge. # Acute Diabetic foot with Osteomyelitis :R foot 2nd and 3rd toes show ischemic changes. Osteomyelitis on previous admission , on Vanco IV. dose with dialysis. s/p Angioplasty of popliteal artery , Posterior tibial and peroneal artery , Anterior tibial artery atherectomy with angioplasty by Vascular Dr. Lee Araiza. # Diabetes mellitus with nephropathy on Levemir # ESRD (end stage renal disease) on HD # HTN Uncontrolled on Minoxidil 10mg PO AM .Torsemide 20mg PO DVT Px: on Plavix now post angioplasty discussed with Waiter/Waitress Room Service and
[2016-07-26] MEDS: INSULIN DETEMIR 100 UNITS/ML MDV SQ SCH (22:04)
[2016-07-27] MEDS: INSULIN SLIDING SCALE (NOVOLOG) 1 VIAL SQ SCH ×3 (06:06→17:14)
[2016-07-27] MEDS: TORSEMIDE 20 MG TABLET (FP) PO SCH ×2 (06:06→16:05)
[2016-07-27] MEDS ORDERED: EPOETIN ALFA 20,000 UNIT/1 ML VIAL IVPUSH ONE (11:45)
--- NOTE | 2016-07-27 11:47 | OP ---
DATE OF OPERATION: 07/22/2016 PREOPERATIVE DIAGNOSIS: Right foot gangrene. POSTOPERATIVE DIAGNOSIS: Right foot gangrene. PROCEDURES: Aortogram, right lower extremity angiogram, popliteal artery drug-coated balloon angioplasty, peroneal artery and posterior tibial artery angioplasty, anterior tibial artery atherectomy with angioplasty. SURGEON: Lee Rutherford DO ANESTHESIA: Fractional. BLOOD LOSS: One-hundred milliliters. The patient is a year-old male who came in a couple weeks ago with a right foot abscess. Podiatry saw the patient, intervened, and ended up draining the abscess. Thereafter, the patient did not get better and Podiatry had to perform a 4th and 5th toe amputation with an open wound that was left. The patient was then given a VAC dressing and was transferred to [facility]. The patient then came for follow up with the hot shot. He was found have the 2nd and 3rd toes dusky in appearance. The patient was admitted to the hospital. Vascular Surgery was then consulted. 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 It was decided that he would need an angiogram. The patient was consented for the procedure, understanding all risks, benefits, and alternatives, and was then taken to the operating room. Once in the operating room, he was laid on the operating table in a supine manner and the area of the right and left groin was prepped and draped in a sterile surgical manner. We then injected 10 mL of lidocaine over the left common femoral artery. We then went ahead and took our Micropuncture needle and punctured the left common femoral artery. Micropuncture wire was inserted. Micropuncture sheath was inserted. A traditional 5-Citizen Of [place] sheath was inserted. A 0.035 floppy guide wire was inserted into the aorta followed by an Omni Flush catheter. We then shot an aortogram via hand injection showing that the aorta and the iliac arteries were without any disease. We then placed our 0.035 floppy guide wire and went up and over to the right common femoral artery and our Omni Flush catheter followed. We then shot an angiogram of the right lower extremity via hand injection showing that the common femoral artery, the profunda and the SFA were all patent. The proximal popliteal artery was patent. The patient had a distal popliteal artery lesion of about 70%. The patient had 1-vessel run-off which was the anterior tibial artery which had multiple areas of stenosis and looked ratty. The peroneal artery only went down to above the ankle. The posterior tibial artery was diseased from his [id number] portion and occluded in the midportion. At this point, we placed a 0.035 stiff guide wire down into the SFA. Removed our Omni Flush catheter. We placed a 6 x 45 crossover sheath. We then went ahead using a 0.035 Quick-Cross catheter, we were able to selectively cannulate into the posterior tibial artery first. We were able to change the wire over to a 0.014 wire and the wire was placed at the ankle. We then went ahead and used a 2.5 x 220 Bard balloon and performed angioplasty of the entire posterior tibial artery. We then went ahead and placed our wire into the peroneal artery and our 0.[address] wire was placed all the way down to above the ankle. Using a 2.5 x 220 Bard balloon, we were able to perform angioplasty of the entire peroneal artery. We then went ahead and selectively cannulated into the anterior tibial artery and we were able to get our 0.014 wire down into the foot. We then exchanged for a ViperWire. We then performed atherectomy using a [employer] atherectomy device and performed atherectomy of the entire anterior tibial artery. Then, we ballooned the artery via angioplasty using a 2.5 x 220 Bard balloon. We then went ahead and used the same atherectomy device and performed atherectomy of the distal popliteal artery. We then went ahead and used a 4 x 6 drug-coated Lutonix balloon and performed angioplasty with the drug-coated balloon. Completion angiogram now showed that the popliteal artery lesion was better, anterior tibial artery had good brisk flow into the foot. The peroneal artery still went down to above the ankle. The posterior tibial artery was getting collateral circulation from the peroneal artery, but was still occluded. The patient had a palpable DP pulse. At this point, we brought our sheath up and over. A StarClose device was successfully deployed in the left common femoral artery. Pressure was held for 5 minutes; there was no bleeding. Areas were then dried and Dermabond was applied. The patient tolerated the procedure with no complications. The patient was transferred to PACU in stable condition. LEE RUTHERFORD DO [id number]
[2016-07-27 12:22] LABS: MCHC 33.5 g/dl (32.0-35.9); MEAN CELL VOLUME 83.6 fl (80-96); MEAN PLT VOLUME 7.2 fl (7.5-11.1); PLATELET COUNT 234 K/MM3 (134-434); RDW 15.4 % (11.9-15.9); WHITE BLOOD COUNT 7.1 K/mm3 (4.0-10.0)
[2016-07-27 12:46] LABS: CALCIUM 7.7 mg/dL (8.5-10.1)
[2016-07-27 12:54] LABS: COCKROFT - GAULT 8.56
[2016-07-27] MEDS: COLLAGENASE CLOSTRIDIUM HIST. 30 GRAMS TUBE TP SCH (12:54)
[2016-07-27] MEDS: MINOXIDIL 10 MG TABLET PO SCH (13:07)
[2016-07-27 13:18] LABS: CREATININE 12.5 mg/dL (0.7-1.3)
--- NOTE | 2016-07-27 14:16 | PN ---
Progress Note (short form) - Note Progress Note: Podiatry: Pt seen and evaluated at bedside, NAD. Patient is a bit anxious to get home. Has been non-weightbearing on the right foot. Getting HD. S/p R 4th/5th ray resection with toe amputation for severe DM infection. S/p RLE revascularization with Dr. Araiza during this admission. Currently afebrile, VSS. ABDIAS: R foot: post-surgical wound along lateral aspect of 4th/5th rays with mixed fibrogranular base, increase in granulation tissue, areas of fibrotic tissue, small areas of necrotic tissue around periphery of wound. There is no purulence , no fluctuance, no periwound erythema, no ascending cellulitis, no soft tissue crepitus, no signs of active infection. No tenderness to palpation. There is ischemic changes to the 2nd/3rd toes. No drainage, no signs of infection. No tenderness to palpation. Patient able to digitally flex/extend on command. Imp: 55 year old DM, ESRD M s/p R 4th/5th ray resections and 4th/5th toe amputations for severe DM infection; s/p RLE revascularization with Dr. Araiza 1. IV abx per ID post-HD 2. Will accelerate weightbearing status to partial WB to R heel with surgical shoe 3. I had a thorough discussion with the patient, myself and Dr. Araiza regarding the patient's condition and further treatment options. We discussed with the patient the ischemic changes exhibited clinically to the 2nd and 3rd toes. I did discuss currently and in the past the potential for a forefoot amputation ( TMA or Chopart amputation) if he has further deterioration or ischemic changes. The patient is hesitant about having this done, even though he understands it may come to a forefoot amputation going forward. After discussing all treatments options and risks/benefits of each, the patient would like to wait and see if hyperbaric oxygen therapy and local wound care will improve his condition. We will watch him closely in the wound care center. Will obtain home nursing services for VAC therapy, 125 mmHg continuous, changed every third day. In addition, he will be implemented in hyperbaric oxygen therapy as outpatient and consult was made. If his condition worsens we will discuss further about amputation. Patient demonstrates understanding and hopefully condition improves. Mel Almanzar DPM
[2016-07-27] MEDS: VANCOMYCIN 1 GRAM (PRE-DOCKED) 250 ML IVPB SCH (14:42)
--- NOTE | 2016-07-27 15:46 | PN ---
Progress Note (short form) - Note Progress Note: Renal Follow up for ESRD on HD Pt seen and examined at the bedside no acute complaints no sob, chest pain, abd pian, N/V/D for dialysis today Vital Signs Temperature 98.8 F 07/27/16 11:35 Pulse Rate 78 07/27/16 15:30 Respiratory Rate 18 07/27/16 15:30 Blood Pressure 177/75 07/27/16 15:30 O2 Sat by Pulse Oximetry (%) 94 L 07/26/16 20:44 Intake & Output 07/24/16 07/25/16 07/26/16 07/27/16 23:59 23:59 23:59 23:59 Intake Total 470 440 800 375 Balance 470 440 800 375 Gen: NAD, awake and alert CVS: RRR, No M/R Lungs: CTA, no rales or wheeze Abd: Soft NT/ND Ext: Right foot is in dressing Access: AVF CBC, BMP 07/27/16 11:40 07/27/16 11:40 Current Medications Clopidogrel Bisulfate (Plavix -) 75 mg PO DAILY [facility] Last Admin: 07/26/16 10:24 Dose: 75 mg Collagenase (Santyl -) 1 applic TP DAILY [facility] Last Admin: 07/27/16 12:54 Dose: Not Given Vancomycin HCl (Vancomycin (Pre-Docked)) 250 mls @ 250 mls/hr IVPB TUTHSA@1000 [facility] PRN Reason: Protocol Last Admin: 07/27/16 14:42 Dose: 250 mls/hr Insulin Aspart (Novolog Vial Sliding Scale -) 1 vial SQ ACHS [facility] PRN Reason: Protocol Last Admin: 07/27/16 06:06 Dose: Not Given Insulin Detemir (Levemir Vial) 6 units SQ HS [facility] Last Admin: 07/26/16 22:04 Dose: Not Given Labetalol HCl (Normodyne -) 100 mg PO BID [facility] Last Admin: 07/26/16 22:04 Dose: 100 mg Minoxidil (Loniten -) 10 mg PO DAILY [facility] Last Admin: 07/27/16 13:07 Dose: 10 mg Torsemide (Demadex -) 20 mg PO BIDLASIX [facility] Last Admin: 07/27/16 06:06 Dose: 20 mg A/P 55 year old Gentleman with PMhx of ESRD on HD (TTS), DM, Hypertension, PVD, recent admission for Osteomylitis who was sent to the ED for discolored toes and admitted for distal ischemia. #Distal Ischemia/PVD/Osteomylitis Vascular and Podiatry follow up continue Vanco dosed by levels Hyperbaric O2 Tx #ESRD on HD Hd today with UF as tolerated dose all meds for intermittent HD #Hypertension Continue Minoxiidil, Labetalol and Torsemide #DM Continue insulin sliding scale #CKD Related Anemia will give high Dose Epogen TIW with HD s/p transfusion this weekend #Renal Osteodystrophy Trend Phos levels Cm Torres DO
[2016-07-27] MEDS: LABETALOL HCL 100 MG TABLET (FP) PO SCH (15:58)
[2016-07-27] MEDS: CLOPIDOGREL BISULFATE 75 MG TABLET (FP) PO SCH (16:05)
--- NOTE | 2016-07-27 16:26 | DS ---
Physical Exam: SUBJECTIVE: Patient seen and examined at bedside. No overnight events. No new complaints. Denies CP,MICHAEL, SOB, palpitation, abd.pain, N/V. OBJECTIVE: Vital Signs Period Temp Pulse Resp BP Sys/Salas Pulse Ox Last 24 Hr 98.4 F-99.3 F 68-78 18-21 140-190/61-98 94-96 PHYSICAL EXAM GENERAL: AAOx3, no acute distress HEAD: NC/AT EYES: PERRLA, EOMI, sclera anicteric, conjunctiva clear. No lid lag. EARS, NOSE, THROAT: Ears normal, nares patent, oropharynx clear without exudates. Moist mucous membranes. NECK: Normal range of motion, supple without lymphadenopathy, JVD, or masses. LUNGS:CTAB, No wheezes, and no crackles. No accessory muscle use. HEART:RRR, normal S1 and S2 . ABDOMEN: Soft, NT/ND, BS(+) no guarding, no rebound, no masses. No hepatomegaly or splenomegaly. LOWER EXTREMITIES: 2+ pulses, warm, well-perfused. no calf tenderness. No peripheral edema. Plantar Left foot ulcer on hallux IPJ with no signs of infection.Right foot s/p amputation of 4/5 phalange. wound appears clean, no purulent drainage.tenderness to palpation. Ischemic changes of 2nd and 3rd toe. NEUROLOGICAL: Normal speech. gait not observe LABS Laboratory Results - last 24 hr 07/24/16 07/26/16 07/26/16 07:00 17:17 22:02 WBC RBC Hgb Hct MCV MCHC RDW Plt Count MPV Sodium Potassium Chloride Carbon Dioxide Anion Gap BUN Creatinine POC Glucometer 148 144 Random Glucose Calcium Random Vancomycin Blood Type O POSITIVE Antibody Screen Negative Crossmatch See Detail 07/27/16 07/27/16 07/27/16 05:40 11:40 11:40 WBC 7.1 RBC 2.85 L Hgb 8.0 L Hct 23.9 L MCV 83.6 MCHC 33.5 RDW 15.4 Plt Count 234 MPV 7.2 L Sodium 134 L Potassium 4.3 Chloride 93 L Carbon Dioxide 24 Anion Gap 17 H BUN 75 H D Creatinine 12.5 H* D POC Glucometer 120 Random Glucose 97 Calcium 7.7 L Random Vancomycin Blood Type Antibody Screen Crossmatch 07/27/16 11:40 WBC RBC Hgb Hct MCV MCHC RDW Plt Count MPV Sodium Potassium Chloride Carbon Dioxide Anion Gap BUN Creatinine POC Glucometer Random Glucose Calcium Random Vancomycin 16.069 Blood Type Antibody Screen Crossmatch HOSPITAL COURSE: 55 yo M with significant PMHx. of IDDM, ESRD,HTN and chronic foot ulcers admitted evaluation of diabetic foot. Seen my podiatry who was concerned with the appearance of his 2nd and 3rd toes. He was evaluated by vascular surgery and sent for aortogram, RLE angiogram, popliteal artery DCB angioplasty , Posterior tibial and peroneal artery angioplasty, Anterior tibial artery atherectomy with angioplasty. There was good blood flow confirmed by doppler. He was started on Plavix which he will continue upon discharge. He was explained the potential for a forefoot amputation (TMA or Chopart amputation) if he has further deterioration or ischemic changes. He is being refereed for wound vac to be placed by home vns ( 125 mmHg continuous, changed every third day) and hyperbaric oxygen therapy. As for his osteomyelitis he will continue having Vancomycin dosed with his dialysis. He will require 17 more doses to complete his treatment. His dialysis will remain as scheduled [facility]. His diabetes was managed with Levemir and novolog sliding scale with BGM ACHS. He will resume all home medications as prescribed. Patient is stable for discharge. To follow up with Podiatry and hyperbarics as soon as possible. Date of Admission:07/20/16 Date of Discharge: 07/27/16 Minutes to complete discharge: 45 Discharge Summary Reason For Visit: GANGRENE OF TOE OF RIGHT FOOT Current Active Problems Gangrene of toe of right foot (Acute) Controlled type 2 diabetes mellitus with foot ulcer (Chronic) ESRD (end stage renal disease) (Chronic) ESRD needing dialysis (Chronic) HTN (hypertension) (Chronic) Osteomyelitis of right foot (Chronic) Condition: Improved - Instructions Diet, Activity, Other Instructions: -Please follow up with Dr. Almanzar for hyperbaric oxygen therapy -Call medicaid for transportation -Continue Dialysis as scheduled [facility] with Vancomycin to be dosed with dialysis -Home VNS will come to your house tomorrow to set up wound vac. -Please continue Plavix 75mg once a day -Resume home meds. -Diabetic diet -Increase activity as tolerated. Referrals: Vazquez Almanzar MD [Staff Physician] - Lee Araiza MD [Staff Physician] - Disposition: VNS/HOME HEALTH CARE - Home Medications Comprehensive Discharge Medication List: Ambulatory Orders Acetaminophen [Tylenol] 650 mg PO Q4H PRN 07/21/16 Insulin Lispro [Humalog] 6 unit SQ HS 07/21/16 Minoxidil [Loniten -] 10 mg PO DAILY 07/21/16 Torsemide 20 mg PO BID 07/21/16 Clopidogrel Bisulfate [Plavix -] 75 mg PO DAILY #30 tablet 07/27/16 Collagenase Clostridium Hist. [Santyl -] 1 applic TP DAILY #3 tube 07/27/16 Miscellaneous Medical Supply [Wound Vac -] 1 each ASDIR #1 unit 07/27/16 Vancomycin 1 Gram (Pre-Docked) [Vancomycin (Pre-Docked)] 250 ml IVPB TUTHSA@ 1000 #17 bag 07/27/16 Problem List - Problems (1) Diabetic foot (2) ESRD (end stage renal disease) (3) Diabetes mellitus with nephropathy (4) HTN (hypertension) This patient is new to me today: No Emergency Visit: Yes ED Registration Date: 07/20/16 Care time: The patient presented to the Emergency Department on the above date and was hospitalized for further evaluation of their emergent condition. Critical Care patient: No - Discharge Referral Referred to [facility] Med [facility].C.: No
[2016-07-27 18:44] VITALS: BP 146/69; PULSE 77; TEMP 98.3
--- NOTE | 2016-07-27 20:24 | PN ---
Teaching Attending Note Name of Resident: Steven Constantino ATTENDING PHYSICIAN STATEMENT I saw and evaluated the patient. I reviewed the resident's note and discussed the case with the resident. I agree with the resident's findings and plan as documented. SUBJECTIVE: Patient wants to go home, doesn't want to go to rehab. OBJECTIVE: Vital Signs Temperature 98.3 F 07/27/16 16:30 Pulse Rate 77 07/27/16 16:30 Respiratory Rate 20 07/27/16 16:30 Blood Pressure 146/69 07/27/16 16:30 O2 Sat by Pulse Oximetry (%) 96 07/27/16 09:00 CBCD WBC 7.1 K/mm3 (4.0-10.0) 07/27/16 11:40 RBC 2.85 M/mm3 (4.00-5.60) L 07/27/16 11:40 Hgb 8.0 GM/dL (11.7-16.9) L 07/27/16 11:40 Hct 23.9 % (35.4-49) L 07/27/16 11:40 MCV 83.6 fl (80-96) 07/27/16 11:40 MCHC 33.5 g/dl (32.0-35.9) 07/27/16 11:40 RDW 15.4 % (11.9-15.9) 07/27/16 11:40 Plt Count 234 K/MM3 (134-434) 07/27/16 11:40 MPV 7.2 fl (7.5-11.1) L 07/27/16 11:40 CMP Sodium 134 mmol/L (136-145) L 07/27/16 11:40 Potassium 4.3 mmol/L (3.5-5.1) 07/27/16 11:40 Chloride 93 mmol/L (98-107) L 07/27/16 11:40 Carbon Dioxide 24 mmol/L (21-32) 07/27/16 11:40 Anion Gap 17 (8-16) H 07/27/16 11:40 BUN 75 mg/dL (7-18) H D 07/27/16 11:40 Creatinine 12.5 mg/dL (0.7-1.3) H* D 07/27/16 11:40 Creat Clearance w eGFR 7.14 (>60) 07/20/16 13:55 Random Glucose 97 mg/dL (74-106) 07/27/16 11:40 Calcium 7.7 mg/dL (8.5-10.1) L 07/27/16 11:40 Total Bilirubin 0.5 mg/dL (0.2-1.0) 07/20/16 13:55 AST 40 U/L (15-37) H D 07/20/16 13:55 ALT 35 U/L (12-78) D 07/20/16 13:55 Alkaline Phosphatase 109 U/L (45-117) 07/20/16 13:55 Total Protein 7.8 g/dl (6.4-8.2) 07/20/16 13:55 Albumin 2.6 g/dl (3.4-5.0) L 07/20/16 13:55 Home Medications Medication Instructions Recorded Acetaminophen [Tylenol] 650 mg PO Q4H PRN 07/21/16 Insulin Lispro [Humalog] 6 unit SQ HS 07/21/16 Minoxidil [Loniten -] 10 mg PO DAILY 07/21/16 Torsemide 20 mg PO BID 07/21/16 Clopidogrel Bisulfate [Plavix -] 75 mg PO DAILY #30 tablet 07/27/16 Collagenase Clostridium Hist. 1 applic TP DAILY #3 tube 07/27/16 [Santyl -] Miscellaneous Medical Supply 1 each ASDIR #1 unit 07/27/16 [Wound Vac -] Vancomycin 1 Gram (Pre-Docked) 250 ml IVPB TUTHSA@1000 #17 bag 07/27/16 [Vancomycin (Pre-Docked)] ASSESSMENT AND PLAN: 55 yo M with significant PMHx. of IDDM, ESRD,HTN , presented with R 2nd/3rd toe ischemic changes # Hypertensive Emergency: added Labetolol 100mg po bid to his regimen , if Needed will increase further. # Acute Anemia over chronic, dropped from 8-->6.7 s/p transfusion 2 units post dialysis as per # Acute Right foot gangrene s/p Aortogram, RLE angiogram, popliteal artery angioplasty , Posterior tibial and peroneal artery angioplasty, Anterior tibial artery atherectomy with angioplasty by Vascular Dr.Nirav Araiza. s/p Dialysis post angioplasty. s/p RLE revascularization continue with local wound care. Will need to watch the 2nd/3rd toes closely. If they deteriorate he may need amputation in the future. might need HBO, local wound care and will need VNS upon discharge. # Acute Diabetic foot with Osteomyelitis :R foot 2nd and 3rd toes show ischemic changes. Osteomyelitis on previous admission , on Vanco IV. dose with dialysis. s/p Angioplasty of popliteal artery , Posterior tibial and peroneal artery , Anterior tibial artery atherectomy with angioplasty by Vascular Dr. Lee Araiza. # Diabetes mellitus with nephropathy on Levemir # ESRD (end stage renal disease) on HD # HTN Uncontrolled on Minoxidil 10mg PO AM .Torsemide 20mg PO DVT Px: on Plavix now post angioplasty discussed with Restaurant Area Director and patient is discharged home.
== END 2016-07-27 19:33 | disposition home health service (06) | DRG 270 ==
LOC: JER 13:14 → JERBED 16:32 → J6S 07-21 15:50
PROVIDERS: ADMIT Internal Medicine; ATTEND Internal Medicine
PROC: 5A1D60Z (ICD-10-PCS; 2016-07-21)
PROC: 047M341 Dilation of Right Popliteal Artery with Drug-eluting Intraluminal Device, using Drug-Coated Balloon, Percutaneous Approach (ICD-10-PCS; 2016-07-22)
PROC: 047R3DZ Dilation of Right Posterior Tibial Artery with Intraluminal Device, Percutaneous Approach (ICD-10-PCS; 2016-07-22)
PROC: 047T3DZ Dilation of Right Peroneal Artery with Intraluminal Device, Percutaneous Approach (ICD-10-PCS; 2016-07-22)
PROC: 047P3DZ Dilation of Right Anterior Tibial Artery with Intraluminal Device, Percutaneous Approach (ICD-10-PCS; 2016-07-22)
PROC: B40DYZZ Plain Radiography of Aorta and Bilateral Lower Extremity Arteries using Other Contrast (ICD-10-PCS; 2016-07-22)
PROC: B40FYZZ Plain Radiography of Right Lower Extremity Arteries using Other Contrast (ICD-10-PCS; 2016-07-22)
PROC: 04CP3ZZ Extirpation of Matter from Right Anterior Tibial Artery, Percutaneous Approach (ICD-10-PCS; principal; 2016-07-22 10:30)
PROC: 30233N1 Transfusion of Nonautologous Red Blood Cells into Peripheral Vein, Percutaneous Approach (ICD-10-PCS; 2016-07-24)
DX: E11.52 Type 2 diabetes mellitus with diabetic peripheral angiopathy with gangrene (principal); N18.6 End stage renal disease; M86.8X7 Other osteomyelitis, ankle and foot; I12.0 Hypertensive chronic kidney disease with stage 5 chronic kidney disease or end stage renal disease; I99.8 Other disorder of circulatory system; I16.0 Hypertensive urgency; E11.69 Type 2 diabetes mellitus with other specified complication; E11.22 Type 2 diabetes mellitus with diabetic chronic kidney disease; D63.1 Anemia in chronic kidney disease; Z99.2 Dependence on renal dialysis; E78.00 Pure hypercholesterolemia, unspecified; Z79.4 Long term (current) use of insulin; E11.21 Type 2 diabetes mellitus with diabetic nephropathy; E11.621 Type 2 diabetes mellitus with foot ulcer; L97.519 Non-pressure chronic ulcer of other part of right foot with unspecified severity; Z89.421 Acquired absence of other right toe(s)
CPT/HCPCS: 36415; 36430; 71010-TC; 75635-TC; 76001-TC; 80048; 80053; 84100; 85025; 85027; 85610; 85651; 85730; 86140; 86704; 86706; 86708; 86803; 86850; 86900; 86901; 86922; 87340; 93005; 93010; 94760; 97116-GP; 97161-GP; 99284-25; G0463-25; G0480; J0885; J1644; P9038; P9058; Q9967

== ENCOUNTER 2016-08-09 07:07 | Inpatient (IN) | payer OTHER ==
[2016-08-09 07:38] VITALS: BMI 27.9
--- NOTE | 2016-08-09 07:49 | PDOC ---
History of Present Illness - General History Source: Patient, Old Records Exam Limitations: No Limitations - History of Present Illness Initial Comments: 08/09/16 07:50 The patient is a 55-year-old man, accompanied by his , with a significant past medical history of hypertension, hypercholesterolemia, end-stage renal disease (on hemo-dialysis q. T/R/S; last hemo-dialysis was on Tuesday without complications) and insulin dependent diabetes mellitus (last Hgb A1C is 6.0, as reported by patient) who presents to the emergency department with complaints of right foot pain. Patient recently underwent amputation of the 4th and 5th toes of the right foot secondary to severe DM foot infection (MRSA and Staph; currently on Vancomycin) on 07/03/2016. Patient reports compliance with physical therapy and wound care since his surgery. He reports he last saw his Bottom Hoop Driver approximately 5 days ago, when he his stitches were removed and he was informed that his surgical site had been looking better. He states that ever since Tuesday, of last week, he has been experiencing intermittent sharp- shooting pains over the right foot with associated itchiness. Patient states that today, his pain worsened, as he typically walks with a cane and walker, but he was unable to do so this morning. He also notes foul odor smell. He does not report any exacerbating factors and states he took an Advil tablet this morning (at approximately 06:30 AM) without significant relief. No recent fevers , chills, weakness, chest pain, lightheadedness, dizziness, palpitations, tingling, numbness sensations to his extremities. No abdominal pain, nausea, vomiting, diarrhea. No urinary complaints. Allergies: No Known Drug Allergies Past Surgical History: Amputation of the 4th and 5th toes. Social History: Never smoked. No EtOH and recreational drug use. Primary Care Physician: Patient just switched to Dr. Yang Gonzalez, but has not had an appointment with him as of yet. Oxidation Operator: Dr. Brody Dueñas [phone] Operational Communication Chief: Dr. Cm Torres [phone] Vascular Surgeon: Dr. Lee Araiza [phone] Bottom Hoop Driver: Dr. Vazquez Almanzar [phone] <Cari López - Last Filed: 08/09/16 10:00> <Ayleen Snyder - Last Filed: 08/09/16 10:14> - General Chief Complaint: Pain Stated Complaint: RIGHT FOOT PAIN Past History <Cari López - Last Filed: 08/09/16 10:00> - Past Medical History Anemia: No Dementia: Yes Diabetes: Yes Dialysis: Yes (Tue) HTN: Yes Hypercholesterolemia: Yes - Surgical History Abdominal Surgery: Yes (childhood) Orthopedic Surgery: (fingers) - Immunization History Td Vaccination: No Immunization Up to Date: Yes - Psycho/Social/Smoking Cessation Hx Anxiety: No Suicidal Ideation: No Smoking Status: No Smoking History: Never smoked Have you smoked in the past 12 months: No Number of Cigarettes Smoked Daily: 0 Cigars Per Day: 0 Information on smoking cessation initiated: No Hx Alcohol Use: No Drug/Substance Use Hx: No Substance Use Type: None Hx Substance Use Treatment: No <Ayleen Snyder - Last Filed: 08/09/16 10:14> - Past Medical History Allergies/Adverse Reactions: Allergies Allergy/AdvReac Type Severity Reaction Status Date / Time No Known Drug Allergies Allergy Verified 08/09/16 07:38 Home Medications: Ambulatory Orders Acetaminophen [Tylenol] 650 mg PO Q4H PRN 07/21/16 Minoxidil [Loniten -] 10 mg PO DAILY 07/21/16 Torsemide 20 mg PO BID 07/21/16 Clopidogrel Bisulfate [Plavix -] 75 mg PO DAILY #30 tablet 07/27/16 Collagenase Clostridium Hist. [Santyl -] 1 applic TP DAILY #3 tube 07/27/16 Calcium Acetate [Phoslo -] 667 mg PO TIDCM 08/09/16 Insulin (Levemir) [Levemir Flexpen -] 0 units SQ HS 08/09/16 Review of Systems - Review of Systems Able to Perform ROS?: Yes Comments:: 08/09/16 07:50 GENERAL/CONSTITUTIONAL: No fever or chills. No weakness. HEAD, EYES, EARS, NOSE AND THROAT: No change in vision. No ear pain or discharge. No sore throat. CARDIOVASCULAR: No chest pain or shortness of breath. RESPIRATORY: No cough, wheezing, or hemoptysis. GASTROINTESTINAL: No nausea, vomiting, diarrhea or constipation. GENITOURINARY: No dysuria, frequency, or change in urination. MUSCULOSKELETAL: Yes: Right foot pain. No neck or back pain. SKIN: Yes: Pruritic right foot. NEUROLOGIC: No headache, vertigo, loss of consciousness, or change in strength/ sensation. ENDOCRINE: No increased thirst. No abnormal weight change. HEMATOLOGIC/LYMPHATIC: No anemia, easy bleeding, or history of blood clots. ALLERGIC/IMMUNOLOGIC: No hives or skin allergy. <Cari López - Last Filed: 08/09/16 10:00> *Physical Exam - Vital Signs Last Vital Signs Temp Pulse Resp BP Pulse Ox 98.1 F 85 18 160/51 99 08/09/16 07:35 08/09/16 07:35 08/09/16 07:35 08/09/16 07:35 08/09/16 07:35 - Physical Exam Comments: 08/09/16 07:50 GENERAL: Awake, alert, and fully oriented, in no acute distress HEAD: No signs of trauma EYES: PERRLA, EOMI, sclera anicteric, conjunctiva clear ENT: Auricles normal inspection, hearing grossly normal, nares patent, oropharynx clear without exudates. Moist mucosa NECK: Normal ROM, supple, no lymphadenopathy, JVD, or masses LUNGS: Breath sounds equal, clear to auscultation bilaterally. No wheezes, and no crackles HEART: Regular rate and rhythm, normal S1 and S2, no murmurs, rubs or gallops ABDOMEN: Soft, nontender, normoactive bowel sounds. No guarding, no rebound. No masses EXTREMITIES: There is a 3 by 5 cm ulcer to the dorsum of the right foot with tenderness and purulent drainage in the wound with foul odor. There is no erythema around the wound. There are also noted gangrenous second and third toes with foul odor. 1+ dorsalis pedis pulses. NEUROLOGICAL: Cranial nerves II through XII grossly intact. Normal speech <Cari López - Last Filed: 08/09/16 10:00> - Vital Signs Last Vital Signs Temp Pulse Resp BP Pulse Ox 98.1 F 85 18 160/51 99 08/09/16 07:35 08/09/16 07:35 08/09/16 07:35 08/09/16 07:35 08/09/16 07:35 <Del Snyderiam - Last Filed: 08/09/16 10:14> ED Treatment Course - LABORATORY CBC & Chemistry Diagram: 08/09/16 08:20 08/09/16 08:20 <Cari López - Last Filed: 08/09/16 10:00> - LABORATORY CBC & Chemistry Diagram: 08/09/16 08:20 08/09/16 08:20 <Ayleen Snyder - Last Filed: 08/09/16 10:14> Medical Decision Making - Medical Decision Making 08/09/16 07:52 Paged Vascular Surgeon, Dr. Lee Araiza at extension [phone]. 08/09/16 07:55 Paged Bottom Hoop Driver, Dr. Vazquez Almanzar at [phone]. 08/09/16 08:14 Second page to Vascular Surgeon, Dr. Lee Araiza at extension [phone]. 08/09/16 08:16 Second page to Bottom Hoop Driver, Dr. Vazquez Almanzar at [phone]. 08/09/16 08:45 Third page to Bottom Hoop Driver, Dr. Vazquez Almanzar at [phone]. 08/09/16 08:47 Third page to Vascular Surgeon, Dr. Lee Araiza at extension [phone]. 08/09/16 08:55 Response by Bottom Hoop Driver, Dr. Vazquez Almanzar. Case was discussed. 08/09/16 09:33 MicroBlogged Hospitalist. 08/09/16 10:03 Case was discussed with Hospitalist, Dr. Myers <Cari López - Last Filed: 08/09/16 10:00> - Medical Decision Making 08/09/16 10:09 Pt presents to the ED complaining of increased discharge and odor and pain from chronic wound to the dorsum of his foot. Wound is malodorous with purlent discharge and gangrene of the second and third toes. No periwound erythema. Labs show elevated wbc count, but patient has no systemic signs of infection. Patient was initially refusing amputation, but is now agreeable. Case discussed with Dr. Garcia, who wants the patient admitted for amputation. Will admit the patient to medicine. Patient is currently recieving vancomycin with HD. Will hold off on new antibiotics for now as per discussion with Dr. Myers. <Ayleen Snyder - Last Filed: 08/09/16 10:14> *DC/Admit/Observation/Transfer - Attestations Scribe Attestion: 08/09/16 07:50 Documentation prepared by Cari López, acting as medical charge entry specialist for Ayleen Snyder MD, /DO. <Cari López - Last Filed: 08/09/16 10:00> - Discharge Dispostion Admit: Yes Decision to Admit order Date/Time: 08/09/16 10:14 <Ayleen Snyder - Last Filed: 08/09/16 10:14> Diagnosis at time of Disposition: Gangrene of toe of right foot, Wound with infection determined by examination - Discharge Dispostion Condition at time of disposition: Good
[2016-08-09] MEDS ORDERED: morphine CARPU-JECT 4 MG/1 ML DISP.SYRIN IVPUSH ONE (07:53)
[2016-08-09] MEDS ORDERED: morphine CARPU-JECT 4 MG/1 ML DISP.SYRIN ONE ×2 (08:03→12:01)
[2016-08-09 08:30] LABS: BASOPHIL 0.6 % (0-2.0); EOSINOPHIL 1.7 % (0-4.5); MCH 27.5 pg (25.7-33.7); MEAN CELL VOLUME 83.1 fl (80-96); NEUTROPHILS 81.6 % (42.8-82.8); PLATELET COUNT 303 K/MM3 (134-434); RDW 15.7 % (11.9-15.9); WHITE BLOOD COUNT 17.9 K/mm3 (4.0-10.0)
[2016-08-09 08:52] LABS: INR 1.41 (0.82-1.09); PROTHROMBIN TIME (PATIENT) 15.6 SEC (9.98-11.88)
[2016-08-09 08:55] LABS: ACTIVATED PTT 34.2 SECONDS (26.9-34.4)
[2016-08-09 09:49] LABS: ERYTHROCYTE SEDIMENTATION RATE 80 mm/hr (0-20)
[2016-08-09] MEDS ORDERED: ACETAMINOPHEN 325 MG TABLET (FP) PO PRN (10:44)
[2016-08-09 11:06] LABS: ALBUMIN 2.3 g/dl (3.4-5.0); ALK PHOS 150 U/L (45-117); ANION GAP 14 (8-16); BILIRUBIN,TOTAL 0.7 mg/dL (0.2-1.0); CALCIUM 8.6 mg/dL (8.5-10.1); CO2 26 mmol/L (21-32); GLUCOSE,RANDOM 212 mg/dL (74-106); SGOT/AST 22 U/L (15-37); SGPT/ALT 28 U/L (12-78)
[2016-08-09 11:15] LABS: CREATININE 11.5 mg/dL (0.7-1.3)
--- NOTE | 2016-08-09 11:21 | HP ---
CHIEF COMPLAINT: Foot pain PCP: Dr. Gonzalez; Nephro: Dr. Torres; Vascular: Dr. Araiza; Podiatry: Dr. Almanzar HISTORY OF PRESENT ILLNESS: 55 yo AA M with h/oHTN, uncontrolled IDDM, ESRD on HD (,,) and osteomyelitis of the R 4th and 5th toes s/p amputation presented to the ED with worsening pain in R foot for 6 days. Patient was discharged on 07/20 after amputation of the R 4th and 5th toes due to infection from MRSA and he's been getting Vancomycin on HD since 07/03/2016. He stated his R foot started to hurt and smell bad since last Tuesday but prompted him to come in the ED is the pain has been getting worse, more malodorous and itchy. As a result, the pain is not relieved with over the counter pain killer and he's unable to ambulate as usual. Denies chest pain, sob, fevers, chills, n/v, focal weakness. ER course was notable for: (1) Pain relieved with morphine (2) Leukocytosis without left shift Recent Travel: Denies PAST MEDICAL HISTORY: As above PAST SURGICAL HISTORY: Fistula creation Social History: Smoking: Denies Alcohol: Denies Drugs: Denies Family History: Non-contributory Allergies No Known Drug Allergies Allergy (Verified 08/09/16 07:38) HOME MEDICATIONS: Home Medications Medication Instructions Recorded Acetaminophen [Tylenol] 650 mg PO Q4H PRN 07/21/16 Minoxidil [Loniten -] 10 mg PO DAILY 07/21/16 Torsemide 20 mg PO BID 07/21/16 Clopidogrel Bisulfate [Plavix -] 75 mg PO DAILY #30 tablet 07/27/16 Collagenase Clostridium Hist. 1 applic TP DAILY #3 tube 07/27/16 [Santyl -] Calcium Acetate [Phoslo -] 667 mg PO TIDCM 08/09/16 Insulin (Levemir) [Levemir Flexpen 0 units SQ HS 08/09/16 -] REVIEW OF SYSTEMS CONSTITUTIONAL: Absent: fever, chills, diaphoresis, generalized weakness, malaise, loss of appetite, weight change HEENT: Absent: rhinorrhea, nasal congestion, throat pain, throat swelling, difficulty swallowing, mouth swelling, ear pain, eye pain, visual changes CARDIOVASCULAR: Absent: chest pain, syncope, palpitations, irregular heart rate, lightheadedness , peripheral edema RESPIRATORY: Absent: cough, shortness of breath, dyspnea with exertion, orthopnea, wheezing, stridor, hemoptysis GASTROINTESTINAL: Absent: abdominal pain, abdominal distension, nausea, vomiting, diarrhea, constipation, melena, hematochezia GENITOURINARY: Absent: dysuria, frequency, urgency, hesitancy, hematuria, flank pain, genital pain MUSCULOSKELETAL: Foot pain Absent: myalgia, arthralgia, joint swelling, back pain, neck pain SKIN: Absent: rash, itching, pallor HEMATOLOGIC/IMMUNOLOGIC: Absent: easy bleeding, easy bruising, lymphadenopathy, frequent infections ENDOCRINE: Absent: unexplained weight gain, unexplained weight loss, heat intolerance, cold intolerance NEUROLOGIC: Absent: headache, focal weakness or paresthesias, dizziness, unsteady gait, seizure, mental status changes, bladder or bowel incontinence PSYCHIATRIC: Absent: anxiety, depression, suicidal or homicidal ideation, hallucinations. PHYSICAL EXAMINATION Last Vital Signs Temp Pulse Resp BP Pulse Ox 98 F 79 16 116/56 98 08/09/16 11:48 08/09/16 11:48 08/09/16 11:48 08/09/16 11:48 08/09/16 11:48 GENERAL: AAOx3, in no acute distress. HEAD: Normal with no signs of trauma. EYES: PERRLA, sclera anicteric, conjunctiva clear. ENT: oropharynx clear without exudates. Moist mucous membranes. NECK: supple, No JVD or bruit LUNGS: CTAB HEART: RRR, normal S1 and S2 without murmur, rub or gallop. ABDOMEN: Soft, nontender, not distended, normoactive bowel sounds, no guarding, no rebound, no masses. MUSCULOSKELETAL: Normal range of motion at all joints. No bony deformities or tenderness. No CVA tenderness. EXTREMITIES: Absent bilateral pheripheral pulses; R 4th and 5th toes amputated, eschar on R 1st big toe, 2nd and 3rd toes, ad across anterior dorsal surface, malodorous, warm, non-erythematous, no crepitus, no drainage or pus. IMAGING X-ray of R foot on 08/09: soft tissue swelling with ulceration at amputation sites, no osteomyelitis X-ray of R ankle on 08/09: vascular calcification ASSESSMENT/PLAN: 55 yo AA M with h/oHTN, uncontrolled IDDM, ESRD on HD (T,,) and osteomyelitis of the R 4th and 5th toes s/p amputation admitted to med-surg for further debridement and amputation. Dry Gangrene, R 1st to 3rd toes - Debridement and amputation planned 10AM - Cont. wound care and daily dressing - Morphine 4mg Q4H for pain control - Podiatry and vascular onboard - PT Osteomyelitis of Right foot - ESR improving - Vancomycin 1gm on HD - f/u trough ESRD on HD - Cont. dialysis IDDM - ISS - Levemir 6 units HS - BGM HTN-Chronic - Continue Minoxidil 10md daily - Continue Turosemide 20mg daily Anemia - 2/2 ESRD - At baseline FEN - IVF not indicated - Follow lytes after HD - Renal Diet , NPO after midnight Prophylaxis - DVT: heparin SQ - GI: not indicated Disposition - Cont. to monitor on med-surg floor Visit type - Emergency Visit Emergency Visit: Yes ED Registration Date: 08/09/16 Care time: The patient presented to the Emergency Department on the above date and was hospitalized for further evaluation of their emergent condition. - New Patient This patient is new to me today: Yes Date on this admission: 08/09/16 - Critical Care Critical Care patient: No
--- NOTE | 2016-08-09 11:35 | CONSULT ---
Consult - text type - Consultation Consultation Note: Podiatry Consultation: 55 year old IDDM M well known to me from wound care center, presents to ED for admission with worsening ischemic changes to the R foot post-operative site. Patient is s/p R 4th/5th toe amputation and partial ray resection for severe DM foot infection 06/30. Discharged to rehab subsequent to that hospital admission , however after several days refused to return to [facility]. Patient receiving vancomycin post-HD as per Infectious Disease. Patient recently revascularized with Dr. Araiza s/p R posterior tibial angioplasty, peroneal artery angioplasty and popliteal angioplasty with main runoff to the foot via anterior tibial artery. He had gangrenous changes to 2nd and 3rd digits that have worsened over the past several days. Also noted malodor that has worsened over the past several days. Denies F/V/N/C/SOB/CP. Currently afebrile, VSS. Patient has a strong history of non-compliance in the past, he has worn inappropriate shoegear , does not minimize weightbearing and has gotten his bandaging wet on several occasions. PMHx: IDDM, HTN, HLP, ESRD on HD (TTrS) Meds: noted in chart PSHx: R foot debridement/lavage, 4th/5th toe amputation for severe DM infection ALL: NKMA ABDIAS: R foot: pedal pulses non-palpable, TG wnl, CFT absent to toes 1-3. There is gangrene of 2nd/3rd digits with mummification. There are ischemic changes to the hallux. There is gangrenous changes to the 2nd and 3rd MTPJs with exposed extensor tendon at the 3rd MTPJ. The extensor tendon is dessicated. There is a post-surgical wound lateral 4th/5th rays with fibrogranular base, small necrotic patch, no purulence, no fluctuance, no periwound erythema, no ascending cellulitis, no signs of active infection. Moderate tenderness to palpation. There is malodor present. There is no soft tissue crepitus to the tissues. There is some duskiness to the plantar forefoot tissues and dorsal forefoot tissues. Wound Cx: past history of MRSA WBC: 17.9 Imp: 55 year old IDDM M s/p R 4th/5th toe amputation and ray resection for severe DM infection, worsening gangrenous changes to the forefoot 1. Recommend admission to hospitalist service, who are already on the case. 2. ID consultation and IV abx per Infectious Disease 3. Vascular consultation with Dr. Araiza 4. Renal consultation with Dr. Torres 5. Santyl + DSD R foot 6. Unfortunately, remaining toes are not salvageable at this point. I have discussed at length risks, benefits and alternatives to surgery with the patient and his girlfriend. He will need trans-metatarsal amputation. The patient is well aware and is ready to proceed with surgery. I have specifically discussed with the patient the risk of worsening and progressing ischemia, infection and loss of limb given his level of microvascular disease. He has been depressed at the idea of forefoot amputation in the past. I recommend a psychiatry evaluation for coping mechanisms. Plan for OR management tomorrow morning, NPO at midnight. 7. Will closely follow. Thank you for the courtesy of this consultation. Mel Almanzar DPM
[2016-08-09] MEDS ORDERED: TORSEMIDE 20 MG TABLET (FP) PO SCH (12:00)
[2016-08-09] MEDS: morphine CARPU-JECT 4 MG/1 ML DISP.SYRIN IVPUSH PRN ×2 (12:08→21:11)
[2016-08-09] MEDS ORDERED: MINOXIDIL 10 MG TABLET PO SCH (13:00)
[2016-08-09] MEDS ORDERED: MINOXIDIL 2.5 MG TABLET PO SCH (13:00)
--- NOTE | 2016-08-09 13:01 | PN ---
Progress Note (short form) - Note Progress Note: VAscular Surgery Pt seen and examined. Right second and third toe gangrene. Going for amputation kinza. Foot is warm -- after angiolasty Will heal podiatry intervention Pt cleared for podiatry intervention Santyl to all wounds Lee Araiza DO
[2016-08-09] MEDS: CLOPIDOGREL BISULFATE 75 MG TABLET (FP) PO SCH (13:33)
[2016-08-09] MEDS: HEPARIN NA (PORCINE) 5,000 UNITS/ML 1ML VIAL SQ SCH ×2 (13:33→21:52)
[2016-08-09] MEDS: INSULIN SLIDING SCALE (NOVOLOG) 1 VIAL SQ SCH ×3 (13:34→23:46)
[2016-08-09] MEDS: CALCIUM ACETATE 667 MG CAPSULE (FP) PO SCH ×2 (13:40→18:16)
--- NOTE | 2016-08-09 14:30 | CONSULT ---
Consult Consult Specialty:: Nephrology ( Drs. Marks/ Brian) Referred by:: Dr. Winn Reason for Consultation:: Patient has ESRD on HD - History of Present Illness Chief Complaint: The patient is a 55 y/o male with ESRD, admitted with worsening gangrene of his right foot. The patient had been getting wound care for foot ulcer and had been getting Hyperbaric treatments. He has had amputatio of his 1st and second toes. History of Present Illness: The patient's medical history is significant for Hypertensio, Type 2 Diabetes mellitus, ESRD, on HD at unit TTS, PVD, Foot ulcers, s/p 1 and 2 toe amputation on the right side. Patient had been getting IV Vancomycin on dialysis. The infection got worse. The patient was having pain in the foot since last week. - History Source History Provided By: Patient, Medical Record - Past Medical History Cardio/Vascular: Yes: HTN Gastrointestinal: Yes: Other (vomiting) Renal/: Yes: Renal Failure, Hemodialysis (on maintenance HD 2/2 hypertensive nephrosclerosis since 2013; on transplant list @ [place]) Infectious Disease: Yes: Other (infected foot ulcers) Musculoskeletal: Yes: Other (remote hx of L foot fracture/sports trauma ) Endocrine: Yes: Diabetes Mellitus - Past Surgical History Past Surgical History: Yes: None - Alcohol/Substance Use Hx Alcohol Use: No History of Substance Use: reports: None - Smoking History Smoking history: Never smoked Have you smoked in the past 12 months: No Aproximately how many cigarettes per day: 0 - Social History Usual Living Arrangement: With Significant Other ADL: Independent Occupation: not working History of Recent Travel: Yes ([facility]) Home Medications - Allergies Allergies/Adverse Reactions: Allergies Allergy/AdvReac Type Severity Reaction Status Date / Time No Known Drug Allergies Allergy Verified 08/09/16 07:38 - Home Medications Home Medications: Ambulatory Orders Acetaminophen [Tylenol] 650 mg PO Q4H PRN 07/21/16 Minoxidil [Loniten -] 10 mg PO DAILY 07/21/16 Torsemide 20 mg PO BID 07/21/16 Clopidogrel Bisulfate [Plavix -] 75 mg PO DAILY #30 tablet 07/27/16 Collagenase Clostridium Hist. [Santyl -] 1 applic TP DAILY #3 tube 07/27/16 Calcium Acetate [Phoslo -] 667 mg PO TIDCM 08/09/16 Insulin (Levemir) [Levemir Flexpen -] 0 units SQ HS 08/09/16 Family Disease History - Family Disease History Family Disease History: Diabetes: Father (HTN), Mother (HTN), Heart Disease: Father, Mother Review of Systems - Review of Systems Constitutional: reports: Fever, Weakness HENT: reports: No Symptoms Neck: denies: Pain on Movement, Stiffness Cardiovascular: denies: Chest Pain, Shortness of Breath Respiratory: denies: Cough, SOB Gastrointestinal: denies: Abdominal Pain Musculoskeletal: reports: Extremity Pain Neurological: reports: Numbness, Weakness Physical Exam Vital Signs: Vital Signs Temperature 98.8 F 08/09/16 12:47 Pulse Rate 78 08/09/16 12:47 Respiratory Rate 20 08/09/16 12:47 Blood Pressure 136/57 08/09/16 12:47 O2 Sat by Pulse Oximetry (%) 98 08/09/16 11:48 Constitutional: Yes: Well Nourished, Anxious HENT: Yes: Normocephalic Neck: Yes: Decreased ROM Cardiovascular: Yes: S1, S2 Respiratory: Yes: CTA Bilaterally, Diminished Gastrointestinal: Yes: Normal Bowel Sounds Extremities: Yes: Amputation Edema: Yes Edema: RLE: 2+ Neurological: Yes: Alert, Oriented Labs: CBC, BMP 08/09/16 10:22 Problem List - Problems (1) Gangrene of toe of right foot Code(s): I96 - GANGRENE, NOT ELSEWHERE CLASSIFIED (2) Anemia Code(s): D64.9 - ANEMIA, UNSPECIFIED (3) Anemia in ESRD (end-stage renal disease) Code(s): N18.6 - END STAGE RENAL DISEASE D63.1 - ANEMIA IN CHRONIC KIDNEY DISEASE (4) Chronic diabetic ulcer of left foot determined by examination Code(s): E11.621 - TYPE 2 DIABETES MELLITUS WITH FOOT ULCER L97.529 - NON-PRESSURE CHRONIC ULCER OTH PRT LEFT FOOT W UNSP SEVERITY (5) Diabetic foot Code(s): E11.8 - TYPE 2 DIABETES MELLITUS WITH UNSPECIFIED COMPLICATIONS (6) Infected ulcer of skin Code(s): L98.499 - NON-PRESSURE CHRONIC ULCER OF SKIN OF SITES W UNSP SEVERITY L08.9 - LOCAL INFECTION OF THE SKIN AND SUBCUTANEOUS TISSUE, UNSP Qualifiers: Non-pressure ulcer stage: unspecified non-pressure ulcer stage Qualified Code(s): L98.499 - Non-pressure chronic ulcer of skin of other sites with unspecified severity; L08.9 - Local infection of the skin and subcutaneous tissue, unspecified (7) Type 2 diabetes mellitus with foot ulcer Code(s): E11.621 - TYPE 2 DIABETES MELLITUS WITH FOOT ULCER L97.509 - NON-PRESSURE CHRONIC ULCER OTH PRT UNSP FOOT W UNSP SEVERITY Qualifiers: (8) HTN (hypertension) Code(s): I10 - ESSENTIAL (PRIMARY) HYPERTENSION Qualifiers: Hypertension type: essential hypertension Qualified Code(s): I10 - Essential (primary) hypertension Assessment/Plan 55 y/o male with ESRD, admitted with worsening gangrene of the right foot and toes. Last HD o Tuesday. The patient is scheduled for [place] amputation and debridement in the morning. Anemia of CKD, complicated by the infectious process. Will dialyze the patient in the morning before the surgery. No Heparin. Vancomycin at the end of dialysis Sarah Marks MD
--- NOTE | 2016-08-09 14:53 | PN ---
Teaching Attending Note Name of Resident: Zaid Winn ATTENDING PHYSICIAN STATEMENT I saw and evaluated the patient. I reviewed the resident's note and discussed the case with the resident. I agree with the resident's findings and plan as documented. SUBJECTIVE: 55 yo male that presents to the ED c/o right foot wound malodorous discharge and pain . Patient was recently hospitalized and underwent amputation of the R 4th and 5th toes due to infection from MRSA and been getting Vancomycin on HD since 07/03/2016 to complete the course of treatment . He stated his R foot started to hurt and smell bad since last Tuesday but prompted him to come in the ED is the pain has been getting worse, more malodorous and itchy. PMH DM HTN Diabetic Foot ulcer DM Nephropathy ESRD PSX Hx AV fistula Family Hx non contributory Social Hx Smoking: Denies Alcohol: Denies Drugs: Denies OBJECTIVE: Vital Signs Temperature 98.8 F 08/09/16 12:47 Pulse Rate 78 08/09/16 12:47 Respiratory Rate 20 08/09/16 12:47 Blood Pressure 136/57 08/09/16 12:47 O2 Sat by Pulse Oximetry (%) 98 08/09/16 11:48 GENERAL: AAOx3, in no acute distress. HEAD: Normal with no signs of trauma. EYES: PERRLA, sclera anicteric, conjunctiva clear. ENT: oropharynx clear without exudates. Moist mucous membranes. NECK: supple, No JVD or bruit LUNGS: CTAB HEART: RRR, normal S1 and S2 without murmur, rub or gallop. ABDOMEN: Soft, nontender, not distended, normoactive bowel sounds, no guarding, no rebound, no masses. MUSCULOSKELETAL: Normal range of motion at all joints. No bony deformities or tenderness. No CVA tenderness. EXTREMITIES: Absent bilateral pheripheral pulses; R 4th and 5th toes amputated. Moderate tenderness to palpation. There is malodor present. There is no soft tissue crepitus to the tissues. There is some duskiness to the plantar forefoot tissues and dorsal forefoot tissues. CBC, BMP 08/09/16 08:20 08/09/16 10:22 ASSESSMENT : 1. Right foot 2nd and 3rd toe gangrene - failed conservative management 2. Right foot cellulitis/osteomyelitis and history of MRSA - treated with vancomycin during HD , hemodynamically stable, has leukocytosis 3. ESRD - on HD 4. Anemia - chronic , stable PLAN: 1. Forefoot amputation on 08/10 2. HD prior to surgery with IV vancomycin at the end 3. Pain control
[2016-08-09] MEDS: TORSEMIDE 20 MG TABLET (FP) PO SCH (16:48)
[2016-08-09] MEDS ORDERED: PT OWN MED DRAWER 7, Y5N ONE (19:14)
[2016-08-09] MEDS ORDERED: INSULIN DETEMIR 100 UNITS/ML MDV SQ SCH (22:00)
[2016-08-10] MEDS: morphine CARPU-JECT 4 MG/1 ML DISP.SYRIN IVPUSH PRN ×3 (05:57→20:07)
[2016-08-10] MEDS: INSULIN SLIDING SCALE (NOVOLOG) 1 VIAL SQ SCH ×4 (06:05→21:52)
[2016-08-10] MEDS: TORSEMIDE 20 MG TABLET (FP) PO SCH ×2 (06:08→17:23)
[2016-08-10 07:28] LABS: MCH 26.7 pg (25.7-33.7); MCHC 32.3 g/dl (32.0-35.9); MEAN CELL VOLUME 82.8 fl (80-96); MEAN PLT VOLUME 7.3 fl (7.5-11.1); PLATELET COUNT 266 K/MM3 (134-434); RDW 15.5 % (11.9-15.9); WHITE BLOOD COUNT 17.8 K/mm3 (4.0-10.0)
[2016-08-10] MEDS ORDERED: VANCOMYCIN 1 GRAM (PRE-DOCKED) 250 ML IVPB ONE (08:00)
[2016-08-10 08:20] LABS: ALBUMIN 2.5 g/dl (3.4-5.0); ANION GAP 15 (8-16); CALCIUM 8.7 mg/dL (8.5-10.1); CO2 25 mmol/L (21-32); GLUCOSE,RANDOM 153 mg/dL (74-106); MAGNESIUM 2.1 mg/dL (1.8-2.4); PHOSPHOROUS 5.3 mg/dL (2.5-4.9); SGOT/AST 20 U/L (15-37); SGPT/ALT 31 U/L (12-78)
[2016-08-10 08:30] LABS: ALK PHOS 156 U/L (45-117); BILIRUBIN,TOTAL 0.9 mg/dL (0.2-1.0); TOT PROT 7.4 g/dl (6.4-8.2)
[2016-08-10 08:39] LABS: CREATININE 13.2 mg/dL (0.7-1.3)
[2016-08-10] MEDS ORDERED: EPOETIN ALFA 20,000 UNIT/1 ML VIAL SQ ONE (09:00)
[2016-08-10] MEDS ORDERED: COLLAGENASE CLOSTRIDIUM HIST. 30 GRAMS TUBE TP SCH (10:00)
--- NOTE | 2016-08-10 11:26 | PN ---
Teaching Attending Note Name of Resident: Zaid Winn ATTENDING PHYSICIAN STATEMENT I saw and evaluated the patient. I reviewed the resident's note and discussed the case with the resident. I agree with the resident's findings and plan as documented. SUBJECTIVE:conitnues to have pain in R foot but improved with pain medication. denies CP, SOB,fever, chills, N/V/C/D OBJECTIVE: Last Vital Signs Temp Pulse Resp BP Pulse Ox 98.3 F 82 18 166/72 98 08/10/16 06:00 08/10/16 09:15 08/10/16 09:15 08/10/16 09:15 08/09/16 21:00 General NAD CV S1 S2 +murmur Lungs CTA B/L no wheezing/rales/rhonchi Extremities R foot dry gangrene of 1st,2nd,&3rd digit with ulceration in between the toes with purulent drainage noted. mildly tender +foul odor. s/p 4th and 5th digit amputation, unable to palpate pedal pulse ASSESSMENT AND PLAN: 55yo M wtih PMH DM, ESRD on HD, HTN and recent OM of the R foot 4th and 5th digit with amputation last month and currently on Vanco treatment presented to the ER with intractable pain and foul odor 1. Dry gangrene of the R forefoot- NPO today for transmetatarsal amputation by podiatry today. bone to be sent to micro for culture but has been on vanco for several weeks and may result in negative pathology. COnt vanco at this time. ID , vascular surgery and podiatry on board. wound management per podiatry. pain control 2. ESRD on HD- currently receiving HD. did not miss any HD sessions per pt. cont HD per normal schedule. renal dose medications. Nephro on board 3. Normocytic anemia- hemoconcentrated on admission likely. now at Hgb baseline. no signs of active bleeding. will need to monitor Hgb closely with pending surgery 4. HTn- controlled 5. DM- controlled.cont home medications. iss, bgm 6. DVT ppx- hep sq
[2016-08-10] MEDS: CALCIUM ACETATE 667 MG CAPSULE (FP) PO SCH ×3 (11:28→17:28)
[2016-08-10] MEDS: CLOPIDOGREL BISULFATE 75 MG TABLET (FP) PO SCH (11:28)
--- NOTE | 2016-08-10 12:54 | PN ---
Physical Exam: SUBJECTIVE: Patient seen and examined in dialysis unit. He stated last night was uneventful. Denies pain, fever, chills, chest pain, sob, urinary or bowel symptoms. OBJECTIVE: Vital Signs Period Temp Pulse Resp BP Sys/Salas Pulse Ox Last 24 Hr 98.3 F-99.6 F 79-94 18-20 113-189/20-96 98 GENERAL: AAOx3, in no acute distress. HEAD: Normal with no signs of trauma. EYES: PERRLA, sclera anicteric, conjunctiva clear. ENT: oropharynx clear without exudates. Moist mucous membranes. NECK: supple, No JVD or bruit LUNGS: CTAB HEART: RRR, normal S1 and S2 without murmur, rub or gallop. ABDOMEN: Soft, nontender, not distended, normoactive bowel sounds, no guarding, no rebound, no masses. MUSCULOSKELETAL: Normal range of motion at all joints. No bony deformities or tenderness. No CVA tenderness. EXTREMITIES: Absent bilateral pheripheral pulses; R 4th and 5th toes amputated, eschar on R 1st big toe, 2nd and 3rd toes, ad across anterior dorsal surface, malodorous, warm, non-erythematous, no crepitus, no drainage or pus. CBCD WBC 17.8 K/mm3 (4.0-10.0) H 08/10/16 05:30 RBC 3.08 M/mm3 (4.00-5.60) L 08/10/16 05:30 Hgb 8.2 GM/dL (11.7-16.9) L 08/10/16 05:30 Hct 25.5 % (35.4-49) L 08/10/16 05:30 MCV 82.8 fl (80-96) 08/10/16 05:30 MCHC 32.3 g/dl (32.0-35.9) 08/10/16 05:30 RDW 15.5 % (11.9-15.9) 08/10/16 05:30 Plt Count 266 K/MM3 (134-434) 08/10/16 05:30 MPV 7.3 fl (7.5-11.1) L 08/10/16 05:30 CMP Sodium 131 mmol/L (136-145) L 08/10/16 05:30 Potassium 4.4 mmol/L (3.5-5.1) 08/10/16 05:30 Chloride 91 mmol/L (98-107) L 08/10/16 05:30 Carbon Dioxide 25 mmol/L (21-32) 08/10/16 05:30 Anion Gap 15 (8-16) 08/10/16 05:30 BUN 73 mg/dL (7-18) H 08/10/16 05:30 Creatinine 13.2 mg/dL (0.7-1.3) H* 08/10/16 05:30 Creat Clearance w eGFR 3.95 (>60) 08/10/16 05:30 Calcium 8.7 mg/dL (8.5-10.1) 08/10/16 05:30 Total Bilirubin 0.9 mg/dL (0.2-1.0) D 08/10/16 05:30 AST 20 U/L (15-37) 08/10/16 05:30 ALT 31 U/L (12-78) 08/10/16 05:30 Alkaline Phosphatase 156 U/L (45-117) H 08/10/16 05:30 Total Protein 7.4 g/dl (6.4-8.2) 08/10/16 05:30 Albumin 2.5 g/dl (3.4-5.0) L 08/10/16 05:30 Intake & Output 08/07/16 08/08/16 08/09/16 08/10/16 23:59 23:59 23:59 23:59 Intake Total 1020 0 Balance 1020 0 Weight 88.451 kg Active Medications Generic Name Dose Route Start Last Admin Trade Name Freq PRN Reason Stop Dose Admin Acetaminophen 650 mg 08/09/16 10:44 Tylenol - PO Q4H PRN FEVER OR PAIN Calcium Acetate 667 mg 08/09/16 12:00 08/10/16 11:28 Phoslo - PO Not Given TIDCM [facility] Clopidogrel Bisulfate 75 mg 08/09/16 12:00 08/10/16 11:28 Plavix - PO Not Given DAILY [facility] Collagenase 1 applic 08/10/16 10:00 Santyl - TP DAILY [facility] Heparin Sodium (Porcine) 5,000 unit 08/09/16 14:00 08/09/16 21:52 Heparin - SQ Not Given TID [facility] Insulin Aspart 0 vial 08/09/16 11:00 08/10/16 06:05 Novolog Vial Sliding Scale - SQ Not Given ACHS [facility] Protocol Insulin Detemir 6 units 08/09/16 22:00 08/09/16 23:45 Levemir Vial SQ Not Given HS [facility] Minoxidil 10 mg 08/09/16 13:00 08/10/16 11:28 Loniten - PO Not Given DAILY [facility] Morphine Sulfate 4 mg 08/09/16 10:50 08/10/16 11:27 Morphine Injection - IVPUSH 4 mg Q4H PRN Administration PAIN Torsemide 20 mg 08/09/16 14:00 08/10/16 06:08 Demadex - PO Not Given BIDLASIX [facility] IMAGING X-ray of R foot on 08/09: soft tissue swelling with ulceration at amputation sites, no osteomyelitis X-ray of R ankle on 08/09: vascular calcification ASSESSMENT/PLAN: 55 yo AA M with h/oHTN, uncontrolled IDDM, ESRD on HD (,,) and osteomyelitis of the R 4th and 5th toes s/p amputation admitted to med-surg for further debridement and amputation. Dry Gangrene, R 1st to 3rd toes - Patient in OR for Debridement and amputation - Cont. wound care and daily dressing - Morphine 4mg Q4H for pain control - PT Osteomyelitis of Right foot - ESR improving - Vancomycin 1gm on HD ESRD on HD - Cont. dialysis IDDM - ISS - Levemir 6 units HS - BGM HTN-Chronic - Continue Minoxidil 10md daily - Continue Turosemide 20mg daily Anemia - 2/2 ESRD - At baseline FEN - IVF not indicated - Follow lytes after HD - Renal Diet Prophylaxis - DVT: heparin SQ - GI: not indicated Disposition - Cont. to monitor on med-surg floor Visit type - Emergency Visit Emergency Visit: No - New Patient This patient is new to me today: No - Critical Care Critical Care patient: No
[2016-08-10] MEDS ORDERED: MIDAZOLAM HCL 2 MG/2 ML SINGLE DOSE VIAL ONE ×2 (13:16→13:19)
[2016-08-10] MEDS ORDERED: LIDOCAINE HCL 2% (20ML MULTI-DOSE VIAL) NR ONE ×2 (13:17→13:25)
[2016-08-10] MEDS ORDERED: PROPOFOL 20 ML ONE ×2 (13:20→13:56)
[2016-08-10] MEDS ORDERED: ONDANSETRON 4 MG/2 ML VIAL IVPUSH PRN ×2 (14:29→16:51)
[2016-08-10] MEDS ORDERED: oxyCODONE HCL 5 MG TABLET PO PRN ×2 (14:29→16:51)
[2016-08-10] MEDS ORDERED: PHENYLEPHRINE HCL 10 MG/1 ML SINGLE DOSE VIAL ONE (14:47)
--- NOTE | 2016-08-10 15:54 | OP ---
Operative Note - Note: Operative Date: 08/10/16 Pre-Operative Diagnosis: Right forefoot gangrene Operation: Right foot trans-metatarsal amputation Post-Operative Diagnosis: Same as Pre-op Surgeon: Vazquez Almanzar Anesthesia: Local, MAC Specimens Removed: Bone, soft tissue right forefoot Estimated Blood Loss (mls): 75 Drains & Tubes with Location: 02/17" sherrie drain Operative Report Dictated: Yes
--- NOTE | 2016-08-10 17:14 | OP ---
DATE OF OPERATION: 08/10/2016 PREOPERATIVE DIAGNOSIS: Right forefoot gangrene. POSTOPERATIVE DIAGNOSIS: Right forefoot gangrene. PROCEDURE PERFORMED: Right foot transmetatarsal amputation. SURGEON: Vazquez Almanzar MD VICE PRESIDENT OF TALENT ACQUISITION: Rigo Klein PGY3 [facility]. ANESTHESIA: Local with IV sedation. HEMOSTASIS: Surgical dissection. ESTIMATED BLOOD LOSS: 25 mL. PATHOLOGY: Bone and soft tissue right forefoot. COMPLICATIONS: None. PROCEDURE IN DETAIL: The patient was brought to the operating room and placed on the operating table in supine position. I elected to not use an ankle tourniquet during the process of this procedure. Following the induction if IV sedation local anesthesia was achieved utilizing 20 mL of 2% lidocaine plain in an ankle block fashion. The right foot was then scrubbed, prepped and draped in the usual aseptic fashion. I directed my attention to the right foot where there were gangrenous changes to the 2nd and 3rd toes with a large necrotic ulcer on the lateral foot which was raised, visualized and appreciated. In addition there was ischemic discoloration of the great toe with absent capillary refill. I elected at this time to proceed with a transmetatarsal amputation. Of note, there was some dusky tissue plantar distally which would accommodate for a flap and so the decision was made to advanced the incision proximally. I began the procedure by performing a circumferential incision about the forefoot at the level of the metatarsal bases. The incision was deepened to bone using sharp and blunt dissection taking care to retract vital neuro and vascular structures. All bleeders were cauterized and ligated as appropriate. Next, the periosteal structures were reflected from the metatarsals 1-5. In addition the capsular and periosteal structures were reflected from the base of the metatarsals into the cuneiform joints. The metatarsal bases were disarticulated wholly and the forefoot was removed and sent to Pathology for analysis. An appropriate soft tissue culture was obtained. Surgical site was copiously irrigated with sterile saline. Next I accessed for flap coverage and in fact there was enough tissue coverage with healthy viable tissue to flap plantar to dorsal. Of note, there was adequate bleeding during the course in the amputation site. Once assessed for flap coverage, the plantar flap was debulked of devital tissue utilizing a sharp 15 blade and sterile scissor. A 1/4-inch Jose Alberto drain was implemented into the surgical site for a combination of hematoma and seroma formation. The surgical site was loosely coapted with 3-0 nylon in a retention suture like fashion. Following conclusion of the procedure the surgical incision was covered with Xeroform and a sterile compressive dressing was applied to the right foot consisting of sterile gauze, Chris, Kerlix and an Irvin wrap. The patient tolerated the procedure and anesthesia well without complications. She was transferred from the operating room to the Recovery Unit with vital signs stable and neural vasculature intact to the right foot. KARI DUKE/[id number]
[2016-08-10] MEDS: HEPARIN NA (PORCINE) 5,000 UNITS/ML 1ML VIAL SQ SCH (21:46)
[2016-08-10] MEDS: INSULIN DETEMIR 100 UNITS/ML MDV SQ SCH (21:46)
[2016-08-11] MEDS: morphine CARPU-JECT 4 MG/1 ML DISP.SYRIN IVPUSH PRN ×2 (01:04→06:41)
[2016-08-11] MEDS: HEPARIN NA (PORCINE) 5,000 UNITS/ML 1ML VIAL SQ SCH ×3 (06:31→21:45)
[2016-08-11] MEDS: TORSEMIDE 20 MG TABLET (FP) PO SCH ×2 (06:31→13:36)
[2016-08-11] MEDS: INSULIN SLIDING SCALE (NOVOLOG) 1 VIAL SQ SCH ×4 (06:31→21:46)
[2016-08-11 08:01] LABS: BASOPHIL 0.4 % (0-2.0); EOSINOPHIL 1.2 % (0-4.5); MCH 27.5 pg (25.7-33.7); MEAN CELL VOLUME 83.2 fl (80-96); NEUTROPHILS 70.1 % (42.8-82.8); PLATELET COUNT 247 K/MM3 (134-434); RDW 15.9 % (11.9-15.9); WHITE BLOOD COUNT 14.6 K/mm3 (4.0-10.0)
[2016-08-11 08:27] LABS: ANION GAP 11 (8-16); CALCIUM 8.5 mg/dL (8.5-10.1); CO2 32 mmol/L (21-32); GLUCOSE,RANDOM 69 mg/dL (74-106)
[2016-08-11 09:35] LABS: CREATININE 9.8 mg/dL (0.7-1.3)
--- NOTE | 2016-08-11 09:45 | PN ---
Progress Note (short form) - Note Progress Note: Podiatry F/U: Seen and evaluated at bedside, NAD. Pain controlled with analgesics, denies F/V /N/C/SOB/CP. S/p R LisFranc amputation for severe PVD, gangrene, DM foot infection, POD #1. Afebrile, VSS. ABDIAS: R foot: dressing C/D/I, mild sanguinous strikethrough, no active bleeding. Bunker drain in place, exiting laterally. Sutures well coapted along stump site, no wound dehiscence. There is no purulent drainage, no malodor, no fluctuance, no soft tissue crepitus, no periwound erythema, no ascending cellulitis, no signs of active infection. Mild tenderness to amputation site. The flap is showing no signs of ischemic changes nor gangrene, the stump is warm to touch. WBC: 14.6, decreasing OR Wound cx: GNBs Imp: 55 year old DM, PVD M s/p R LisFranc amputation POD #1 1. Non-WB R foot. 2. Dressing change at bedside. Please reinforce prn strikethrough. 3. Will remove sherrie drain tomorrow. 4. Pain control. 5. Will watch over the next couple days and few weeks to make sure the amputation stump heals well and shows no signs of ischemic changes. 6. Will follow. Mel Almanzar DPM
[2016-08-11] MEDS: ACETAMINOPHEN 325 MG TABLET (FP) PO PRN (11:31)
[2016-08-11] MEDS: CALCIUM ACETATE 667 MG CAPSULE (FP) PO SCH ×3 (11:32→17:19)
[2016-08-11] MEDS: CLOPIDOGREL BISULFATE 75 MG TABLET (FP) PO SCH (11:32)
[2016-08-11] MEDS: COLLAGENASE CLOSTRIDIUM HIST. 30 GRAMS TUBE TP SCH (11:37)
[2016-08-11] MEDS: MINOXIDIL 10 MG TABLET PO SCH (12:29)
--- NOTE | 2016-08-11 14:01 | PN ---
Teaching Attending Note Name of Resident: Zaid Winn ATTENDING PHYSICIAN STATEMENT I saw and evaluated the patient. I reviewed the resident's note and discussed the case with the resident. I agree with the resident's findings and plan as documented. SUBJECTIVE:c/o R foot pain. mild relief with pain medications. denies CP, SOB, fever, chills, N/V/C/D OBJECTIVE: Last Vital Signs Temp Pulse Resp BP Pulse Ox 98.9 F 81 18 123/51 94 L 08/11/16 02:00 08/11/16 10:00 08/11/16 10:00 08/11/16 10:00 08/10/16 22:00 General NAD Extremities R foot wrapped in c/d/i ASSESSMENT AND PLAN: 55yo M wtih PMH DM, ESRD on HD, HTN and recent OM of the R foot 4th and 5th digit with amputation last month and currently on Vanco treatment presented to the ER with intractable pain and foul odor 1. Dry gangrene of the R forefoot- s/p transmetatarsal amputation 08/10. tolerated well. continues to have pain. morphine causes nausea. will increase percocet to 10mg q4H standing today and then prn tomorrow. WCx with GNR. will consult ID for appropriate therapy as currently being treated for OM. f/u official cx. informed by RN that pt is to be non-weight bearing for 4weeks, d/w pt about placement issues as he was driving himself to HD 3/xweek previously and now can not drive during this time. pt states he will coordinate rides as he does not want SNF. 2. ESRD on HD-cont HD per normal schedule. Nephro on board 3. Normocytic anemia- hemoconcentrated on admission likely. now at Hgb baseline. no signs of active bleeding. Hgb stable. procrit weekly 4. HTn- controlled 5. DM- controlled.cont home medications. iss, bgm 6. DVT ppx- hep sq
[2016-08-11] MEDS ORDERED: PIPERACILLIN/TAZOB 2.25 GM 50 ML IVPB ONE (14:02)
[2016-08-11] MEDS ORDERED: oxyCODONE HCL 5 MG TABLET PO PRN (14:15)
[2016-08-11] MEDS ORDERED: oxyCODONE HCL 5 MG TABLET PO SCH (14:15)
--- NOTE | 2016-08-11 14:42 | PN ---
Physical Exam: SUBJECTIVE: Patient seen and examined at bedside s/p toes amputation of the R foot. Stated pain is not controlled. Denies fever, chills, n/v, chest pain, sob, urinary or bowel symptoms. OBJECTIVE: Vital Signs Period Temp Pulse Resp BP Sys/Salas Pulse Ox Last 24 Hr 98.2 F-99.0 F 76-88 12-20 104-154/47-82 94-98 GENERAL: AAOx3, in no acute distress. HEAD: Normal with no signs of trauma. EYES: PERRLA, sclera anicteric, conjunctiva clear. ENT: oropharynx clear without exudates. Moist mucous membranes. NECK: supple, No JVD or bruit LUNGS: CTAB HEART: RRR, normal S1 and S2 without murmur, rub or gallop. ABDOMEN: Soft, nontender, not distended, normoactive bowel sounds, no guarding, no rebound, no masses. MUSCULOSKELETAL: Normal range of motion at all joints. No bony deformities or tenderness. No CVA tenderness. EXTREMITIES: clean dressing covered the entire R foot, no bleeding or drainage CBCD WBC 14.6 K/mm3 (4.0-10.0) H 08/11/16 06:30 RBC 3.08 M/mm3 (4.00-5.60) L 08/11/16 06:30 Hgb 8.5 GM/dL (11.7-16.9) L 08/11/16 06:30 Hct 25.7 % (35.4-49) L 08/11/16 06:30 MCV 83.2 fl (80-96) 08/11/16 06:30 MCHC 33.0 g/dl (32.0-35.9) 08/11/16 06:30 RDW 15.9 % (11.9-15.9) 08/11/16 06:30 Plt Count 247 K/MM3 (134-434) 08/11/16 06:30 MPV 7.0 fl (7.5-11.1) L 08/11/16 06:30 CMP Sodium 136 mmol/L (136-145) 08/11/16 06:30 Potassium 4.4 mmol/L (3.5-5.1) 08/11/16 06:30 Chloride 93 mmol/L (98-107) L 08/11/16 06:30 Carbon Dioxide 32 mmol/L (21-32) D 08/11/16 06:30 Anion Gap 11 (8-16) 08/11/16 06:30 BUN 45 mg/dL (7-18) H D 08/11/16 06:30 Creatinine 9.8 mg/dL (0.7-1.3) H* D 08/11/16 06:30 Creat Clearance w eGFR 3.95 (>60) 08/10/16 05:30 Calcium 8.5 mg/dL (8.5-10.1) 08/11/16 06:30 Total Bilirubin 0.9 mg/dL (0.2-1.0) D 08/10/16 05:30 AST 20 U/L (15-37) 08/10/16 05:30 ALT 31 U/L (12-78) 08/10/16 05:30 Alkaline Phosphatase 156 U/L (45-117) H 08/10/16 05:30 Total Protein 7.4 g/dl (6.4-8.2) 08/10/16 05:30 Albumin 2.5 g/dl (3.4-5.0) L 08/10/16 05:30 Active Medications Generic Name Dose Route Start Last Admin Trade Name Freq PRN Reason Stop Dose Admin Acetaminophen 650 mg 08/10/16 16:51 08/11/16 11:31 Tylenol - PO 325 mg Q4H PRN Administration FEVER OR PAIN Calcium Acetate 667 mg 08/10/16 17:30 08/11/16 11:32 Phoslo - PO 667 mg TIDCM MONIK Administration Clopidogrel Bisulfate 75 mg 08/11/16 10:00 08/11/16 11:32 Plavix - PO 75 mg DAILY MONIK Administration Collagenase 1 applic 08/11/16 10:00 08/11/16 11:37 Santyl - TP Not Given DAILY [facility] Heparin Sodium (Porcine) 5,000 unit 08/10/16 22:00 08/11/16 13:35 Heparin - SQ 5,000 unit TID MONIK Administration Piperacillin Sod/Tazobactam 50 mls @ 100 mls/hr 08/11/16 14:02 Sod 2.25 gm/ Dextrose IVPB 08/11/16 14:31 ONCE ONE Protocol Insulin Aspart 1 vial 08/10/16 22:00 08/11/16 11:35 Novolog Vial Sliding Scale - SQ Not Given ACHS [facility] Protocol Insulin Detemir 6 units 08/10/16 22:00 08/10/16 21:46 Levemir Vial SQ 6 units HS MONIK Administration Minoxidil 10 mg 08/11/16 10:00 08/11/16 12:29 Loniten - PO Not Given DAILY [facility] Morphine Sulfate 4 mg 08/10/16 16:51 08/11/16 06:41 Morphine Injection - IVPUSH 4 mg Q4H PRN Administration PAIN Oxycodone HCl 10 mg 08/11/16 14:15 Roxicodone - PO 08/11/16 14:28 Q4H MONIK Torsemide 20 mg 08/11/16 06:00 08/11/16 13:36 Demadex - PO 20 mg BIDLASIX MONIK Administration Microbiology 08/09/16 08:20 Gram Stain - Final Wound Wound Culture - Final Pseudomonas Aeruginosa Proteus Mirabilis Klebsiella Pneumoniae IMAGING X-ray of R foot on 08/09: soft tissue swelling with ulceration at amputation sites, no osteomyelitis X-ray of R ankle on 08/09: vascular calcification ASSESSMENT/PLAN: 55 yo AA M with h/o HTN, uncontrolled IDDM, ESRD on HD (,,) and osteomyelitis of the R 4th and 5th toes s/p amputation admitted to med-surg for further debridement and amputation. Dry Gangrene, s/p LisFranc amputation - Post-op day 1 - Wound culture grew davis sensitive gram -ve * zosyn 2.25gm x 1 renally dosed - Cont. wound care and daily dressing - Oxycodone 10mg Q4H MONIK + Morphine 4mg for severe pain > 6/10 - No weight bearing on R foot x 2 weeks History of osteomyelitis in Right foot - ESR improving - Vancomycin 1gm during every dialysis session ESRD on HD - Cont. dialysis IDDM - Controlled - ISS - Levemir 6 units HS - BGM HTN-Chronic - Continue Minoxidil 10md daily - Continue Turosemide 20mg daily Anemia - 2/2 ESRD - At baseline FEN - IVF not indicated - Follow lytes after HD - Renal Diet Prophylaxis - DVT: heparin SQ - GI: not indicated Disposition - Cont. to monitor on med-surg floor Visit type - Emergency Visit Emergency Visit: No - New Patient This patient is new to me today: No - Critical Care Critical Care patient: No
[2016-08-11] MEDS ORDERED: ACETAMINOPHEN 325 MG TABLET (FP) PO PRN (15:11)
--- NOTE | 2016-08-11 15:43 | PN ---
Progress Note (short form) - Note Progress Note: ID consult dictated imp/reccd diabetic foot infection s/p TMA osteomyelitis esrd/hd cultures noted continue vanco with HD, zosyn for GNR will f/u cultures
--- NOTE | 2016-08-11 17:13 | PN ---
Progress Note, Physician Chief Complaint: Pain, depression History of Present Illness: The patient's medical history is significant for Hypertensio, Type 2 Diabetes mellitus, ESRD, on HD at unit TTS, PVD, Foot ulcers and gangrene. S/P TMA right. Seems kind of down today. " I must face the new reality" But he is determined to face it realistically. - Current Medication List Current Medications: Active Medications Acetaminophen (Tylenol -) 650 mg PO Q4H PRN PRN Reason: FEVER OR PAIN Last Admin: 08/11/16 11:31 Dose: 325 mg Acetaminophen (Tylenol -) 650 mg PO Q4H PRN Calcium Acetate (Phoslo -) 667 mg PO TIDCM [facility] Last Admin: 08/11/16 11:32 Dose: 667 mg Clopidogrel Bisulfate (Plavix -) 75 mg PO DAILY [facility] Last Admin: 08/11/16 11:32 Dose: 75 mg Collagenase (Santyl -) 1 applic TP DAILY [facility] Last Admin: 08/11/16 11:37 Dose: Not Given Heparin Sodium (Porcine) (Heparin -) 5,000 unit SQ TID [facility] Last Admin: 08/11/16 13:35 Dose: 5,000 unit Piperacillin Sod/Tazobactam Sod (Zosyn 2.25gm Ivpb (Pre-Docked)) 50 mls @ 100 mls/hr IVPB Q8H-IV [facility]IK PRN Reason: Protocol Insulin Aspart (Novolog Vial Sliding Scale -) 1 vial SQ ACHS [facility] PRN Reason: Protocol Last Admin: 08/11/16 11:35 Dose: Not Given Insulin Detemir (Levemir Vial) 6 units SQ HS [facility] Last Admin: 08/10/16 21:46 Dose: 6 units Minoxidil (Loniten -) 10 mg PO DAILY [facility] Last Admin: 08/11/16 12:29 Dose: Not Given Morphine Sulfate (Morphine Injection -) 4 mg IVPUSH Q4H PRN PRN Reason: PAIN Last Admin: 08/11/16 06:41 Dose: 4 mg Oxycodone HCl (Roxicodone -) 10 mg PO Q4H PRN Torsemide (Demadex -) 20 mg PO BIDLASIX [facility] Last Admin: 08/11/16 13:36 Dose: 20 mg - Objective Vital Signs: Vital Signs Temperature 98.4 F 08/11/16 15:22 Pulse Rate 75 08/11/16 15:22 Respiratory Rate 16 08/11/16 15:22 Blood Pressure 133/66 08/11/16 15:22 O2 Sat by Pulse Oximetry (%) 94 L 08/11/16 09:00 Constitutional: Yes: No Distress, Anxious HENT: Yes: Normocephalic Cardiovascular: Yes: Regular Rate and Rhythm, S1, S2 Respiratory: Yes: CTA Bilaterally. No: Rales, Rhonchi Gastrointestinal: Yes: Normal Bowel Sounds, Soft Extremities: Yes: Amputation (right TMA), Other (the left foot toe nails are overgrown,) Edema: Yes Edema: RLE: 1+ Wound/Incision: Yes: Dressing Dry and Intact Neurological: Yes: Alert, Oriented Psychiatric: Yes: Alert, Oriented Labs: CBC, BMP 08/11/16 06:30 08/11/16 06:30 INR, PTT INR 1.41 (0.82-1.09) H 08/09/16 08:20 Problem List - Problems (1) Gangrene of toe of right foot Code(s): I96 - GANGRENE, NOT ELSEWHERE CLASSIFIED (2) Anemia Code(s): D64.9 - ANEMIA, UNSPECIFIED (3) Anemia in ESRD (end-stage renal disease) Code(s): N18.6 - END STAGE RENAL DISEASE D63.1 - ANEMIA IN CHRONIC KIDNEY DISEASE (4) Chronic diabetic ulcer of left foot determined by examination Code(s): E11.621 - TYPE 2 DIABETES MELLITUS WITH FOOT ULCER L97.529 - NON-PRESSURE CHRONIC ULCER OTH PRT LEFT FOOT W UNSP SEVERITY (5) Diabetic foot Code(s): E11.8 - TYPE 2 DIABETES MELLITUS WITH UNSPECIFIED COMPLICATIONS (6) Infected ulcer of skin Code(s): L98.499 - NON-PRESSURE CHRONIC ULCER OF SKIN OF SITES W UNSP SEVERITY L08.9 - LOCAL INFECTION OF THE SKIN AND SUBCUTANEOUS TISSUE, UNSP Qualifiers: Non-pressure ulcer stage: unspecified non-pressure ulcer stage Qualified Code(s): L98.499 - Non-pressure chronic ulcer of skin of other sites with unspecified severity; L08.9 - Local infection of the skin and subcutaneous tissue, unspecified (7) Type 2 diabetes mellitus with foot ulcer Code(s): E11.621 - TYPE 2 DIABETES MELLITUS WITH FOOT ULCER L97.509 - NON-PRESSURE CHRONIC ULCER OTH PRT UNSP FOOT W UNSP SEVERITY Qualifiers: (8) HTN (hypertension) Code(s): I10 - ESSENTIAL (PRIMARY) HYPERTENSION Qualifiers: Hypertension type: essential hypertension Qualified Code(s): I10 - Essential (primary) hypertension Assessment/Plan 55 y/o male with ESRD, admitted with worsening gangrene of the right foot and toes. The patient had TMA yesterday. Has pain. Seems depressed at the loss of the foot. Anemia of CKD, complicated by the infectious process. Next HD in the morning. Vancomycin at the end of dialysis Sarah Marks MD
[2016-08-11] MEDS: oxyCODONE HCL 5 MG TABLET PO PRN ×2 (17:20→21:47)
[2016-08-11] MEDS: PIPERACILLIN/TAZOB 2.25 GM 50 ML IVPB SCH (19:50)
[2016-08-11] MEDS: INSULIN DETEMIR 100 UNITS/ML MDV SQ SCH (21:45)
[2016-08-12] MEDS: PIPERACILLIN/TAZOB 2.25 GM 50 ML IVPB SCH ×3 (01:28→16:59)
[2016-08-12] MEDS: TORSEMIDE 20 MG TABLET (FP) PO SCH ×2 (06:17→13:36)
[2016-08-12] MEDS: HEPARIN NA (PORCINE) 5,000 UNITS/ML 1ML VIAL SQ SCH ×3 (06:17→22:47)
[2016-08-12] MEDS: INSULIN SLIDING SCALE (NOVOLOG) 1 VIAL SQ SCH ×4 (06:18→22:47)
[2016-08-12] MEDS ORDERED: INSULIN (NOVOLOG) ASPART 100 UNITS/ML 10ML VIAL ONE ×6 (07:03→22:45)
[2016-08-12 07:05] LABS: ANION GAP 15 (8-16); CALCIUM 8.8 mg/dL (8.5-10.1); CO2 29 mmol/L (21-32); GLUCOSE,RANDOM 190 mg/dL (74-106); MCH 27.3 pg (25.7-33.7); MCHC 32.3 g/dl (32.0-35.9); MEAN CELL VOLUME 84.5 fl (80-96); MEAN PLT VOLUME 7.5 fl (7.5-11.1); PLATELET COUNT 267 K/MM3 (134-434); WHITE BLOOD COUNT 16.8 K/mm3 (4.0-10.0)
[2016-08-12 07:14] LABS: PHOSPHOROUS 7.1 mg/dL (2.5-4.9)
[2016-08-12 07:22] LABS: CREATININE 11.8 mg/dL (0.7-1.3)
[2016-08-12] MEDS: CALCIUM ACETATE 667 MG CAPSULE (FP) PO SCH ×3 (07:50→16:52)
[2016-08-12] MEDS ORDERED: EPOETIN ALFA 10,000 UNIT/1 ML VIAL IVPUSH ONE (08:15)
[2016-08-12] MEDS: oxyCODONE HCL 5 MG TABLET PO PRN ×2 (10:57→16:51)
[2016-08-12] MEDS: ACETAMINOPHEN 325 MG TABLET (FP) PO PRN ×2 (10:58→16:52)
--- NOTE | 2016-08-12 11:35 | PN ---
Physical Exam: SUBJECTIVE: Saw and examined the patient in dialysis unit. Patient stated the pain is under control with oxycodone around the clock. Denies fever, chills, n/v, chest pain, sob, urinary or bowel symptoms. OBJECTIVE: Vital Signs Period Temp Pulse Resp BP Sys/Salas Pulse Ox Last 24 Hr 97.6 F-98.6 F 67-84 16-18 124-157/63-90 96 GENERAL: AAOx3, in no acute distress. HEAD: Normal with no signs of trauma. EYES: PERRLA, sclera anicteric, conjunctiva clear. ENT: oropharynx clear without exudates. Moist mucous membranes. NECK: supple, No JVD or bruit LUNGS: CTAB HEART: RRR, normal S1 and S2 without murmur, rub or gallop. ABDOMEN: Soft, nontender, not distended, normoactive bowel sounds, no guarding, no rebound, no masses. MUSCULOSKELETAL: Normal range of motion at all joints. No bony deformities or tenderness. No CVA tenderness. EXTREMITIES: clean dressing covered the entire R foot, no bleeding or drainage CBCD WBC 16.8 K/mm3 (4.0-10.0) H 08/12/16 06:00 RBC 3.25 M/mm3 (4.00-5.60) L 08/12/16 06:00 Hgb 8.9 GM/dL (11.7-16.9) L 08/12/16 06:00 Hct 27.4 % (35.4-49) L 08/12/16 06:00 MCV 84.5 fl (80-96) 08/12/16 06:00 MCHC 32.3 g/dl (32.0-35.9) 08/12/16 06:00 RDW 16.0 % (11.9-15.9) H 08/12/16 06:00 Plt Count 267 K/MM3 (134-434) 08/12/16 06:00 MPV 7.5 fl (7.5-11.1) 08/12/16 06:00 CMP Sodium 132 mmol/L (136-145) L 08/12/16 06:00 Potassium 5.1 mmol/L (3.5-5.1) 08/12/16 06:00 Chloride 88 mmol/L (98-107) L 08/12/16 06:00 Carbon Dioxide 29 mmol/L (21-32) 08/12/16 06:00 Anion Gap 15 (8-16) 08/12/16 06:00 BUN 62 mg/dL (7-18) H D 08/12/16 06:00 Creatinine 11.8 mg/dL (0.7-1.3) H* D 08/12/16 06:00 Creat Clearance w eGFR 3.95 (>60) 08/10/16 05:30 Calcium 8.8 mg/dL (8.5-10.1) 08/12/16 06:00 Total Bilirubin 0.9 mg/dL (0.2-1.0) D 08/10/16 05:30 AST 20 U/L (15-37) 08/10/16 05:30 ALT 31 U/L (12-78) 08/10/16 05:30 Alkaline Phosphatase 156 U/L (45-117) H 08/10/16 05:30 Total Protein 7.4 g/dl (6.4-8.2) 08/10/16 05:30 Albumin 2.5 g/dl (3.4-5.0) L 08/10/16 05:30 Active Medications Generic Name Dose Route Start Last Admin Trade Name Freq PRN Reason Stop Dose Admin Acetaminophen 650 mg 08/10/16 16:51 08/12/16 10:58 Tylenol - PO 650 mg Q4H PRN Administration FEVER OR PAIN Acetaminophen 650 mg 08/11/16 15:11 Tylenol - PO Q4H PRN Calcium Acetate 667 mg 08/10/16 17:30 08/12/16 07:50 Phoslo - PO Not Given TIDCM MONIK Clopidogrel Bisulfate 75 mg 08/11/16 10:00 08/11/16 11:32 Plavix - PO 75 mg DAILY [facility] Administration Collagenase 1 applic 08/11/16 10:00 08/11/16 11:37 Santyl - TP Not Given DAILY [facility] Heparin Sodium (Porcine) 5,000 unit 08/10/16 22:00 08/12/16 06:17 Heparin - SQ 5,000 unit TID MONIK Administration Piperacillin Sod/Tazobactam Sod 50 mls @ 100 mls/hr 08/11/16 18:00 08/12/16 01: 28 Zosyn 2.25gm Ivpb (Pre-Docked) IVPB 100 mls/hr Q8H-IV MONIK Administration Protocol Insulin Aspart 1 vial 08/10/16 22:00 08/12/16 06:18 Novolog Vial Sliding Scale - SQ 2 units ACHS MONIK Administration Protocol Insulin Detemir 6 units 08/10/16 22:00 08/11/16 21:45 Levemir Vial SQ 6 units HS MONIK Administration Minoxidil 10 mg 08/11/16 10:00 08/11/16 12:29 Loniten - PO Not Given DAILY [facility] Morphine Sulfate 4 mg 08/10/16 16:51 08/11/16 06:41 Morphine Injection - IVPUSH 4 mg Q4H PRN Administration PAIN Oxycodone HCl 10 mg 08/11/16 14:45 08/12/16 10:57 Roxicodone - PO 10 mg Q4H PRN Administration Torsemide 20 mg 08/11/16 06:00 08/12/16 06:17 Demadex - PO 20 mg BIDLASIX MONIK Administration Microbiology 08/10/16 15:20 Gram Stain - Final Tissue-Other 08/09/16 08:20 Gram Stain - Final Wound Wound Culture - Final Pseudomonas Aeruginosa Proteus Mirabilis Klebsiella Pneumoniae ASSESSMENT/PLAN: 55 yo AA M with h/o HTN, uncontrolled IDDM, ESRD on HD (,,) and osteomyelitis of the R 4th and 5th toes s/p amputation admitted to med-surg for further debridement and amputation. Dry Gangrene, s/p LisFranc amputation - Post-op day 2 - Wound culture grew davis sensitive gram -ve * zosyn 2.25gm Q8H day 2 - Cont. wound care and daily dressing - Oxycodone 10mg Q4H PRN + Morphine 4mg for severe pain > 6/10 - No weight bearing on R foot x 2 weeks History of osteomyelitis in Right foot - ESR improving - Vancomycin 1gm during every dialysis session ESRD on HD - Cont. dialysis IDDM - Controlled - ISS - Levemir 6 units HS - BGM HTN-Chronic - Continue Minoxidil 10md daily - Continue Turosemide 20mg daily Anemia - 2/2 ESRD - At baseline FEN - IVF not indicated - Follow lytes after HD - Renal Diet Prophylaxis - DVT: heparin SQ - GI: not indicated Disposition - Cont. to monitor on med-surg floor Visit type - Emergency Visit Emergency Visit: No - New Patient This patient is new to me today: No - Critical Care Critical Care patient: No
[2016-08-12] MEDS ORDERED: PT OWN MED DRAWER 7, Y5N ONE (12:26)
[2016-08-12] MEDS: MINOXIDIL 10 MG TABLET PO SCH (12:31)
[2016-08-12] MEDS: COLLAGENASE CLOSTRIDIUM HIST. 30 GRAMS TUBE TP SCH (12:32)
[2016-08-12] MEDS: CLOPIDOGREL BISULFATE 75 MG TABLET (FP) PO SCH (12:32)
--- NOTE | 2016-08-12 12:41 | PN ---
Progress Note (short form) - Note Progress Note: Podiatry F/U: Seen and evaluated at [facility]. Denies F/V/N/C/SOB/CP. S/p R foot trans- metatarsal amputation POD #2. Currently afebrile, VSS. Pain is well controlled with analgesics. ABDIAS: R foot: dressing C/D/I, no active bleeding, minimal strikethrough. Post- surgical stump with sutures intact, no wound dehiscence, sherrie drain in place , no purulence, no fluctuance, no periwound erythema, no ascending cellulitis, no signs of active infection. There is no flap necrosis, no ischemic changes, flap is warm to touch. There is a wound lateral-most aspect of stump with granular base. Mild tenderness to palpation. WBC: 16.8 OR Wound Cx: proteus, klebsiella, pseudomonas Imp: 55 year old IDDM, PVD M s/p R transmetatarsal amputation POD # 2 for PVD 1. I have had a thorough discussion with the patient regarding his condition. Myself and case management have discussed with the patient that we recommend discharge to sub-acute rehab facility for non-WB status and wound care. Patient is adamant about returning home, even though I explained to him at length about risk of wound dehiscence, progression of disease and loss of limb. He understands and wishes to return home. 2. PT eval for non-weightbearing R foot with crutches. 3. I have recommended psychiatry evaluation for coping with depression and he refuses. 4. Home nursing services for wound gel to lateral most aspect of stump where open wound is present, followed by dry sterile dressing 3x/week. 5. Upon discharge, patient will f/u with me in [facility] on Tuesday. HBO as outpatient. Mel Almanzar DPM
--- NOTE | 2016-08-12 13:04 | PN ---
Progress Note, Physician Chief Complaint: Pain, depression History of Present Illness: The patient's medical history is significant for Hypertensio, Type 2 Diabetes mellitus, ESRD, on HD at unit TTS, PVD, Foot ulcers and gangrene. S/P TMA. Heeling better today. Dr. Almanzar's notes reviewed. The patient is adamant about going home. Emphasized the need for rehab placement. Orders for HD reviewed with the RN. - Current Medication List Current Medications: Active Medications Acetaminophen (Tylenol -) 650 mg PO Q4H PRN PRN Reason: FEVER OR PAIN Last Admin: 08/12/16 10:58 Dose: 650 mg Acetaminophen (Tylenol -) 650 mg PO Q4H PRN Calcium Acetate (Phoslo -) 667 mg PO TIDCM [facility] Last Admin: 08/12/16 12:33 Dose: 667 mg Clopidogrel Bisulfate (Plavix -) 75 mg PO DAILY [facility] Last Admin: 08/12/16 12:32 Dose: 75 mg Collagenase (Santyl -) 1 applic TP DAILY [facility] Last Admin: 08/12/16 12:32 Dose: Not Given Heparin Sodium (Porcine) (Heparin -) 5,000 unit SQ TID [facility] Last Admin: 08/12/16 06:17 Dose: 5,000 unit Piperacillin Sod/Tazobactam Sod (Zosyn 2.25gm Ivpb (Pre-Docked)) 50 mls @ 100 mls/hr IVPB Q8H-IV MONIK PRN Reason: Protocol Last Admin: 08/12/16 12:31 Dose: 100 mls/hr Insulin Aspart (Novolog Vial Sliding Scale -) 1 vial SQ ACHS MONIK PRN Reason: Protocol Last Admin: 08/12/16 12:34 Dose: 2 units Insulin Detemir (Levemir Vial) 6 units SQ HS [facility] Last Admin: 08/11/16 21:45 Dose: 6 units Minoxidil (Loniten -) 10 mg PO DAILY [facility] Last Admin: 08/12/16 12:31 Dose: 10 mg Morphine Sulfate (Morphine Injection -) 4 mg IVPUSH Q4H PRN PRN Reason: PAIN Last Admin: 08/11/16 06:41 Dose: 4 mg Oxycodone HCl (Roxicodone -) 10 mg PO Q4H PRN Last Admin: 08/12/16 10:57 Dose: 10 mg Torsemide (Demadex -) 20 mg PO BIDLASIX [facility] Last Admin: 08/12/16 06:17 Dose: 20 mg - Objective Vital Signs: Vital Signs Temperature 98.6 F 08/12/16 11:00 Pulse Rate 75 08/12/16 12:00 Respiratory Rate 18 08/12/16 12:00 Blood Pressure 147/81 08/12/16 12:00 O2 Sat by Pulse Oximetry (%) 96 08/11/16 21:00 Constitutional: Yes: Anxious Eyes: Yes: Conjunctiva Clear Neck: Yes: Trachea Midline Cardiovascular: Yes: S1, S2 Respiratory: Yes: Regular. No: Rales, Rhonchi, SOB Gastrointestinal: Yes: Normal Bowel Sounds, Soft Extremities: Yes: Amputation (Right TMA) Edema: Yes Edema: RLE: Trace Neurological: Yes: Alert, Oriented Labs: CBC, BMP 08/12/16 06:00 08/12/16 06:00 INR, PTT INR 1.41 (0.82-1.09) H 08/09/16 08:20 Problem List - Problems (1) Gangrene of toe of right foot Code(s): I96 - GANGRENE, NOT ELSEWHERE CLASSIFIED (2) Anemia Code(s): D64.9 - ANEMIA, UNSPECIFIED (3) Anemia in ESRD (end-stage renal disease) Code(s): N18.6 - END STAGE RENAL DISEASE D63.1 - ANEMIA IN CHRONIC KIDNEY DISEASE (4) Chronic diabetic ulcer of left foot determined by examination Code(s): E11.621 - TYPE 2 DIABETES MELLITUS WITH FOOT ULCER L97.529 - NON-PRESSURE CHRONIC ULCER OTH PRT LEFT FOOT W UNSP SEVERITY (5) Diabetic foot Code(s): E11.8 - TYPE 2 DIABETES MELLITUS WITH UNSPECIFIED COMPLICATIONS (6) Infected ulcer of skin Code(s): L98.499 - NON-PRESSURE CHRONIC ULCER OF SKIN OF SITES W UNSP SEVERITY L08.9 - LOCAL INFECTION OF THE SKIN AND SUBCUTANEOUS TISSUE, UNSP Qualifiers: Non-pressure ulcer stage: unspecified non-pressure ulcer stage Qualified Code(s): L98.499 - Non-pressure chronic ulcer of skin of other sites with unspecified severity; L08.9 - Local infection of the skin and subcutaneous tissue, unspecified (7) Type 2 diabetes mellitus with foot ulcer Code(s): E11.621 - TYPE 2 DIABETES MELLITUS WITH FOOT ULCER L97.509 - NON-PRESSURE CHRONIC ULCER OTH PRT UNSP FOOT W UNSP SEVERITY Qualifiers: (8) HTN (hypertension) Code(s): I10 - ESSENTIAL (PRIMARY) HYPERTENSION Qualifiers: Hypertension type: essential hypertension Qualified Code(s): I10 - Essential (primary) hypertension Assessment/Plan 55 y/o male with ESRD, admitted with worsening gangrene of the right foot and toes. The patient had TMA Anemia of CKD, complicated by the infectious process. HD well tolerated. Vancomycin at the end of dialysisgiven. Patient was advised Short term rehab which he adamantly declines. Sarah Marks MD
[2016-08-12] MEDS: ONDANSETRON *ODT* 4 MG TABLET SL PRN ×2 (14:52→21:57)
--- NOTE | 2016-08-12 15:34 | PN ---
Progress Note (short form) - Note Progress Note: feels better no diarrhea no sob Vital Signs Period Temp Pulse Resp BP Sys/Salas Pulse Ox Last 24 Hr 97.6 F-99.1 F 67-84 16-20 111-157/61-90 95-96 cor-rrr lungs clear abd soft,nt ext dressing intact CBC, BMP 08/12/16 06:00 08/12/16 06:00 Microbiology 08/10/16 15:20 Tissue-Other Gram Stain - Final 08/10/16 15:20 Tissue-Other Tissue Culture - Preliminary Non Lactose Fermenting Gnb Non Lactose Fermenting Gnb#2 Staphylococcus Coagulase Neg 08/09/16 08:20 Wound Gram Stain - Final 08/09/16 08:20 Wound Wound Culture - Final Pseudomonas Aeruginosa Proteus Mirabilis Klebsiella Pneumoniae a/p diabetic foot infection s/p TMA osteomyelitis esrd/hd cultures noted continue vanco with HD, zosyn for GNR will f/u cultures and pathology long discussion with patient, he is willing to consider all options for follow up care at this time
--- NOTE | 2016-08-12 15:58 | CONS ---
DATE OF CONSULTATION: 08/12/2016 INFECTIOUS DISEASE CONSULTATION REQUESTING PHYSICIAN: Hospitalist service. HISTORY OF PRESENT ILLNESS: This is a 55-year-old man who we know from prior admissions. He was originally seen in June of this year. He has history of endstage renal disease and he came in with a foot infection. He was ultimately diagnosed with osteomyelitis of his foot. The bone cultures grew MRSA and strep salivaris. He was discharged home on vancomycin with dialysis and oral Flagyl. He as subsequently readmitted in July with ischemic toes. He underwent a vascular evaluation during that admission. He underwent an angiogram and he had posterior tibial and peroneal artery angioplasty. He was started on Plavix and discharged to finish his antibiotics as an outpatient. His foot grew worse. He was readmitted on the . He underwent TMA on the and we were asked to see him on the because wound cultures were growing pseudomonas proteus and klebsiella. He was awake and alert and feeling well when we saw him. He denied any fever or chills. ALLERGIES: No known drug allergies. MEDICATIONS AT HOME: Include minoxidil, torsemide, Plavix, Santyl, PhosLo, insulin. PAST MEDICAL HISTORY: Is notable for history of diabetes, hypertension, endstage renal disease on dialysis for 3 years, osteo of the right 4th and 5th with bone cultures positive for MRSA and strep. PAST SURGICAL HISTORY: Notable for the amputation and left arm fistula. FAMILY HISTORY: Notable for diabetes, hypertension. His father is on dialysis. SOCIAL HISTORY: He lives at home with his family. There is no history of an cigarette or substance use. REVIEW OF SYSTEMS: He denies diarrhea, shortness of breath, nausea or vomiting. PHYSICAL EXAMINATION; Vital Signs: Temperature 99.1, he has been afebrile, pulse 78, blood pressure 111/61, respiratory rate 16. HEENT: Normocephalic. Eyes are anicteric. Neck: Supple. Lungs: Clear to auscultation. Heart: Regular rate and rhythm. Abdomen: Soft, nontender. Extremities: left arm AV fistula is working. His right foot is bandaged. LABORATORY DATA: Notable for a white count of 14.6 yesterday, hemoglobin 8.5, platelets 247. BUN 62, creatinine 11.8. His wound cultures from the are growing pseudomonas, proteus and klebsiella. Operative tissue culture is growing 2 non-lactose fermenters and coagulase negative staph. IMPRESSION AND RECOMMENDATIONS: In summary this is a 55-year-old man with endstage renal disease on dialysis, diabetes, hypertension with diabetic foot infection, status post transmetatarsal amputation, history of osteomyelitis, MRSA. Cultures were noted. Would await operative cultures as well as pathology. Would continue vancomycin with dialysis and Zosyn for Gram negative meche coverage. Further recommendations to follow. Romina [id number]
--- NOTE | 2016-08-12 16:33 | PATH ---
Surgical Pathology Report Patient Name: ZAK THOMPSON [facility]. Rec. #: [id number] /Age/Gender: 1960 (Age: 55) / M Account: [id number] Location: [facility] MED/SURG Taken: 08/10/2016 Received: 08/11/2016 Reported: 08/12/2016 Physicians: KARI Randle M.D. Specimen(s) Received RIGHT FOOT TRANSMETATARSAL AMPUTATION Clinical History Gangrene right foot Final Diagnosis FOOT, RIGHT, TRANSMETATARSAL AMPUTATION: SKIN, UNDERLYING SOFT TISSUE AND BONE WITH GANGRENOUS NECROSIS. NECROSIS EXTENDS TO THE SKIN AND SOFT TISSUE RESECTION MARGIN. BONES AT RESECTION MARGIN APPEAR VIABLE. SEPARATE FRAGMENTS OF SKIN AND SOFT TISSUE WITH GANGRENOUS NECROSIS. SEPARATE FRAGMENTS OF VIABLE BONE. Electronically Signed Jroge Tellez M.D. Gross Description Received in formalin labeled "transmetatarsal amputation right foot" is a 12.5 x 10.5 x 4.6 cm right transmetatarsal amputation specimen. The fourth and fifth digits appear to have been previously amputated. The entire epidermal surface displays a black, gangrenous lesion involving the skin and soft tissue margin as well as the underlying bone. Separately received within the same container is a 9.0 x 9.0 x 2.5 cm aggregate of multiple irregular, unoriented portions of skin, soft tissue and bone. Director Clinical Pharmacology sections are submitted in 9 cassettes as follows: 1-lesion with underlying bone, following decalcification; 2-skin and soft tissue margin; 3-bone margin from first digit, following decalcification; 4-bone margin from second digit, following decalcification; 5-bone margin from third digit, following decalcification; 6-bone margin from fourth digit, following decalcification; 7-bone margin from fifth digit, following decalcification; 8-separately received skin and soft tissue; 9-separately received bone, following decalcification. 08/11/201608/11/2016
--- NOTE | 2016-08-12 16:47 | PN ---
Teaching Attending Note Name of Resident: Zaid Winn ATTENDING PHYSICIAN STATEMENT I saw and evaluated the patient. I reviewed the resident's note and discussed the case with the resident. I agree with the resident's findings and plan as documented. SUBJECTIVE:pain improved. denies CP, SOB,fever, chills, N/V/C/D OBJECTIVE: Last Vital Signs Temp Pulse Resp BP Pulse Ox 99.1 F 78 16 111/61 95 08/12/16 14:20 08/12/16 14:20 08/12/16 14:20 08/12/16 14:20 08/12/16 09:00 General NAD Extremities R foot wrapped in c/d/i ASSESSMENT AND PLAN: 55yo M wtih PMH DM, ESRD on HD, HTN and recent OM of the R foot 4th and 5th digit with amputation last month and currently on Vanco treatment presented to the ER with intractable pain and foul odor 1. Dry gangrene of the R forefoot- s/p transmetatarsal amputation 08/10. tolerated well. pain improved on new regimen. Polyorgansims in WCx. repeat appears to have the same organsims. will wait for final report. cont vanco with HD and zosyn day 2. pt still d/w about going to SNF. very resistant at this time. 2. ESRD on HD-cont HD per normal schedule. Nephro on board 3. Normocytic anemia- hemoconcentrated on admission likely. now at Hgb baseline. no signs of active bleeding. Hgb stable. procrit weekly 4. HTn- controlled 5. DM- controlled.cont home medications. iss, bgm 6. DVT ppx- hep sq
[2016-08-12] MEDS ORDERED: INSULIN DETEMIR 100 UNITS/ML MDV SQ ONE (17:17)
[2016-08-12] MEDS: INSULIN DETEMIR 100 UNITS/ML MDV SQ SCH (22:47)
[2016-08-13] MEDS: PIPERACILLIN/TAZOB 2.25 GM 50 ML IVPB SCH ×3 (01:52→17:36)
[2016-08-13] MEDS: HEPARIN NA (PORCINE) 5,000 UNITS/ML 1ML VIAL SQ SCH ×3 (06:25→21:34)
[2016-08-13] MEDS: TORSEMIDE 20 MG TABLET (FP) PO SCH ×2 (06:25→13:29)
[2016-08-13] MEDS: INSULIN SLIDING SCALE (NOVOLOG) 1 VIAL SQ SCH ×4 (06:26→21:33)
[2016-08-13] MEDS ORDERED: INSULIN (NOVOLOG) ASPART 100 UNITS/ML 10ML VIAL ONE ×5 (06:38→20:46)
[2016-08-13] MEDS ORDERED: INSULIN DETEMIR 100 UNITS/ML MDV SQ ONE (06:38)
[2016-08-13 07:48] LABS: MCH 27.5 pg (25.7-33.7); MCHC 32.5 g/dl (32.0-35.9); MEAN CELL VOLUME 84.8 fl (80-96); MEAN PLT VOLUME 7.3 fl (7.5-11.1); PLATELET COUNT 266 K/MM3 (134-434); RDW 15.9 % (11.9-15.9); WHITE BLOOD COUNT 15.3 K/mm3 (4.0-10.0)
[2016-08-13 07:50] LABS: ANION GAP 10 (8-16); CALCIUM 8.8 mg/dL (8.5-10.1); CO2 32 mmol/L (21-32); GLUCOSE,RANDOM 103 mg/dL (74-106); PHOSPHOROUS 5.3 mg/dL (2.5-4.9)
[2016-08-13 09:08] LABS: CREATININE 8.9 mg/dL (0.7-1.3)
[2016-08-13] MEDS ORDERED: PT OWN MED DRAWER 7, Y5N ONE (09:09)
[2016-08-13] MEDS: CLOPIDOGREL BISULFATE 75 MG TABLET (FP) PO SCH (09:12)
[2016-08-13] MEDS: MINOXIDIL 10 MG TABLET PO SCH (09:12)
[2016-08-13] MEDS: CALCIUM ACETATE 667 MG CAPSULE (FP) PO SCH ×3 (09:12→17:30)
[2016-08-13] MEDS: COLLAGENASE CLOSTRIDIUM HIST. 30 GRAMS TUBE TP SCH (09:13)
[2016-08-13] MEDS: oxyCODONE HCL 5 MG TABLET PO PRN (10:29)
[2016-08-13] MEDS: ACETAMINOPHEN 325 MG TABLET (FP) PO PRN ×3 (10:30→20:41)
--- NOTE | 2016-08-13 10:34 | PN ---
Progress Note (short form) - Note Progress Note: he notes some pains in the left foot! Vital Signs Period Temp Pulse Resp BP Sys/Salas Pulse Ox Last 24 Hr 97.8 F-99.1 F 70-78 16-20 111-151/61-82 95 cor-rrr lungs clear abd sott, nt ext left foot TMA- edsge is open and draining, plantar aspect of wound is blackened CBC, BMP 08/13/16 06:20 08/13/16 06:20 Microbiology 08/10/16 15:20 Tissue-Other Gram Stain - Final 08/10/16 15:20 Tissue-Other Tissue Culture - Preliminary Non Lactose Fermenting Gnb Non Lactose Fermenting Gnb#2 Staphylococcus Coagulase Neg 08/09/16 08:20 Wound Gram Stain - Final 08/09/16 08:20 Wound Wound Culture - Final Pseudomonas Aeruginosa Proteus Mirabilis Klebsiella Pneumoniae Laboratory Tests 08/13/16 06:20 Random Vancomycin 12.884 a/p s/p TMA will d/w dr moran f/u cultures continue vanco with HD and zosyn needs close f/u of wound, may need further revision not ready for discharge at this time esrd/hd
[2016-08-13] MEDS ORDERED: VANCOMYCIN 1 GRAM (PRE-DOCKED) 1,000 MG/250 ML BAG IVPB ONE (11:30)
--- NOTE | 2016-08-13 12:17 | PN ---
Teaching Attending Note Name of Resident: Zaid Winn ATTENDING PHYSICIAN STATEMENT I saw and evaluated the patient. I reviewed the resident's note and discussed the case with the resident. I agree with the resident's findings and plan as documented. SUBJECTIVE:states pain is controlled. denies Cp, SOB,fever, chills, N/V/C/D OBJECTIVE: Last Vital Signs Temp Pulse Resp BP Pulse Ox 98.6 F 76 20 131/67 93 L 08/13/16 09:00 08/13/16 09:00 08/13/16 09:00 08/13/16 09:00 08/13/16 09:00 General NAD Extremities R foot wrapped in c/d/i ASSESSMENT AND PLAN: 55yo M wtih PMH DM, ESRD on HD, HTN and recent OM of the R foot 4th and 5th digit with amputation last month and currently on Vanco treatment presented to the ER with intractable pain and foul odor 1. Dry gangrene of the R forefoot- s/p transmetatarsal amputation 08/10. wound appears to necrotic per ID. may require revision. Wcx appears to be the same polyorganisms from admission. cont Zosyn day 3. on Vanco with HD for MRSA OM. ID and podiatry on board 2. ESRD on HD-cont HD per normal schedule. Nephro on board 3. Normocytic anemia- hemoconcentrated on admission likely. now at Hgb baseline. no signs of active bleeding. Hgb stable. procrit weekly 4. HTn- controlled 5. DM- controlled.cont home medications. iss, bgm 6. DVT ppx- hep sq
--- NOTE | 2016-08-13 13:07 | PN ---
Progress Note, Physician Chief Complaint: The patient seen in his bed. Feels much better. No new complaints. The pain is easing up. Trying to use the device to ambulate. - Current Medication List Current Medications: Active Medications Acetaminophen (Tylenol -) 650 mg PO Q4H PRN PRN Reason: FEVER OR PAIN Last Admin: 08/13/16 10:30 Dose: 650 mg Acetaminophen (Tylenol -) 650 mg PO Q4H PRN Calcium Acetate (Phoslo -) 667 mg PO TIDCM [facility] Last Admin: 08/13/16 11:52 Dose: 667 mg Clopidogrel Bisulfate (Plavix -) 75 mg PO DAILY [facility] Last Admin: 08/13/16 09:12 Dose: 75 mg Collagenase (Santyl -) 1 applic TP DAILY [facility] Last Admin: 08/13/16 09:13 Dose: Not Given Heparin Sodium (Porcine) (Heparin -) 5,000 unit SQ TID [facility] Last Admin: 08/13/16 06:25 Dose: 5,000 unit Piperacillin Sod/Tazobactam Sod (Zosyn 2.25gm Ivpb (Pre-Docked)) 50 mls @ 100 mls/hr IVPB Q8H-IV [facility] PRN Reason: Protocol Last Admin: 08/13/16 09:13 Dose: 100 mls/hr Insulin Aspart (Novolog Vial Sliding Scale -) 1 vial SQ ACHS [facility] PRN Reason: Protocol Last Admin: 08/13/16 11:51 Dose: Not Given Insulin Detemir (Levemir Vial) 6 units SQ HS [facility] Last Admin: 08/12/16 22:47 Dose: 6 units Minoxidil (Loniten -) 10 mg PO DAILY [facility] Last Admin: 08/13/16 09:12 Dose: 10 mg Morphine Sulfate (Morphine Injection -) 4 mg IVPUSH Q4H PRN PRN Reason: PAIN Last Admin: 08/11/16 06:41 Dose: 4 mg Ondansetron HCl (Zofran Odt -) 8 mg SL Q6H PRN PRN Reason: NAUSEA AND/OR VOMITING Last Admin: 08/12/16 21:57 Dose: 8 mg Oxycodone HCl (Roxicodone -) 10 mg PO Q4H PRN Last Admin: 08/13/16 10:29 Dose: 5 mg Torsemide (Demadex -) 20 mg PO BIDLASIX [facility] Last Admin: 08/13/16 06:25 Dose: 20 mg - Objective Vital Signs: Vital Signs Temperature 98.6 F 08/13/16 09:00 Pulse Rate 76 08/13/16 09:00 Respiratory Rate 20 08/13/16 09:00 Blood Pressure 131/67 08/13/16 09:00 O2 Sat by Pulse Oximetry (%) 93 L 08/13/16 09:00 Constitutional: Yes: Anxious Eyes: Yes: Conjunctiva Clear HENT: Yes: Atraumatic Cardiovascular: Yes: S1, S2 Respiratory: Yes: Regular. No: Cough, Orthopnea, Rales, Rhonchi Gastrointestinal: Yes: Normal Bowel Sounds, Soft Extremities: Yes: Amputation (right TMA) Labs: CBC, BMP 08/13/16 06:20 08/13/16 06:20 INR, PTT INR 1.41 (0.82-1.09) H 08/09/16 08:20 Problem List - Problems (1) Gangrene of toe of right foot Code(s): I96 - GANGRENE, NOT ELSEWHERE CLASSIFIED (2) Anemia Code(s): D64.9 - ANEMIA, UNSPECIFIED (3) Anemia in ESRD (end-stage renal disease) Code(s): N18.6 - END STAGE RENAL DISEASE D63.1 - ANEMIA IN CHRONIC KIDNEY DISEASE (4) Chronic diabetic ulcer of left foot determined by examination Code(s): E11.621 - TYPE 2 DIABETES MELLITUS WITH FOOT ULCER L97.529 - NON-PRESSURE CHRONIC ULCER OTH PRT LEFT FOOT W UNSP SEVERITY (5) Diabetic foot Code(s): E11.8 - TYPE 2 DIABETES MELLITUS WITH UNSPECIFIED COMPLICATIONS (6) Infected ulcer of skin Code(s): L98.499 - NON-PRESSURE CHRONIC ULCER OF SKIN OF SITES W UNSP SEVERITY L08.9 - LOCAL INFECTION OF THE SKIN AND SUBCUTANEOUS TISSUE, UNSP Qualifiers: Non-pressure ulcer stage: unspecified non-pressure ulcer stage Qualified Code(s): L98.499 - Non-pressure chronic ulcer of skin of other sites with unspecified severity; L08.9 - Local infection of the skin and subcutaneous tissue, unspecified (7) Type 2 diabetes mellitus with foot ulcer Code(s): E11.621 - TYPE 2 DIABETES MELLITUS WITH FOOT ULCER L97.509 - NON-PRESSURE CHRONIC ULCER OTH PRT UNSP FOOT W UNSP SEVERITY Qualifiers: (8) HTN (hypertension) Code(s): I10 - ESSENTIAL (PRIMARY) HYPERTENSION Qualifiers: Hypertension type: essential hypertension Qualified Code(s): I10 - Essential (primary) hypertension Assessment/Plan 55 y/o male with ESRD, admitted with worsening gangrene of the right foot and toes. The patient had TMA Anemia of CKD, complicated by the infectious process. Next HD in AM. The next challenges incluse for the patient's wound to heal, and at the same time patient maintain his ambulatory status. Wants only to be discharged home. Sarah Marks MD
[2016-08-13] MEDS ORDERED: oxyCODONE HCL 5 MG TABLET PO PRN (13:08)
[2016-08-13] MEDS: SENNOSIDES/DOCUSATE COMBO (SENNA PLUS) TABLET (UD) PO SCH ×2 (13:29→21:35)
--- NOTE | 2016-08-13 15:43 | PN ---
Progress Note (short form) - Note Progress Note: Podiatry: Seen and evaluated at bedside, NAD. Denies F/V/N/C/SOB/CP. S/p R transmetatarsal amputation POD #3. Currently afebrile, VSS. Does have persistent pain to the right foot, having phantom pains now. ABDIAS: R foot: dressing C/D/I, no active bleeding, no strikethrough. Sutures coapted along medial aspect of stump, laterally there is some dehiscence noted. On the lateral-most aspect of the stump there is a fibrogranular wound from prior drain site. There is some serous drainage, some malodor present. There is no purulence expressed. There is some hyperpigmentation to the plantar stump, the stump is warm to touch. There is no erythema, no ascending cellulitis, no soft tissue crepitus. Moderate tenderness to palpation. WBC: 15.3 OR Cx: proteus, psuedomonas Imp: 55 year old IDDM, PVD M s/p R transmetatarsal amputation 1. DSD R foot. Please keep dressing C/D/I. 2. Non-WB R foot. I suspect patient is putting more pressure on the foot and I discussed with him the importance of minimizing WB activity. 3. IV abx per ID 4. Hopefully, the amputation stump will heal. Given patient's vasculopathy not sure if the limb will be salvaged. Will need close follow up in [facility], Hyperbaric Oxygen for tissue reperfusion. 5. Will closely follow as outpatient. Mel Almanzar DPM
[2016-08-13] MEDS: ONDANSETRON *ODT* 4 MG TABLET SL PRN (15:52)
--- NOTE | 2016-08-13 16:24 | PN ---
Physical Exam: SUBJECTIVE: Patient stated the pain is under control. No BM yet. Vomited once last night but zofran helped. Denies fever, chills, n/v, chest pain, sob, urinary or bowel symptoms. OBJECTIVE: Vital Signs Period Temp Pulse Resp BP Sys/Salas Pulse Ox Last 24 Hr 97.8 F-98.6 F 76-78 18-20 131-154/67-71 93-95 GENERAL: AAOx3, in no acute distress. HEAD: Normal with no signs of trauma. EYES: PERRLA, sclera anicteric, conjunctiva clear. ENT: oropharynx clear without exudates. Moist mucous membranes. NECK: supple, No JVD or bruit LUNGS: CTAB HEART: RRR, normal S1 and S2 without murmur, rub or gallop. ABDOMEN: Soft, nontender, not distended, normoactive bowel sounds, no guarding, no rebound, no masses. MUSCULOSKELETAL: Normal range of motion at all joints. No bony deformities or tenderness. No CVA tenderness. EXTREMITIES: dressing covered the entire R foot, old bleed seen through the dressing CBCD WBC 15.3 K/mm3 (4.0-10.0) H 08/13/16 06:20 RBC 3.22 M/mm3 (4.00-5.60) L 08/13/16 06:20 Hgb 8.9 GM/dL (11.7-16.9) L 08/13/16 06:20 Hct 27.3 % (35.4-49) L 08/13/16 06:20 MCV 84.8 fl (80-96) 08/13/16 06:20 MCHC 32.5 g/dl (32.0-35.9) 08/13/16 06:20 RDW 15.9 % (11.9-15.9) 08/13/16 06:20 Plt Count 266 K/MM3 (134-434) 08/13/16 06:20 MPV 7.3 fl (7.5-11.1) L 08/13/16 06:20 CMP Sodium 136 mmol/L (136-145) 08/13/16 06:20 Potassium 4.3 mmol/L (3.5-5.1) 08/13/16 06:20 Chloride 94 mmol/L (98-107) L 08/13/16 06:20 Carbon Dioxide 32 mmol/L (21-32) 08/13/16 06:20 Anion Gap 10 (8-16) 08/13/16 06:20 BUN 43 mg/dL (7-18) H D 08/13/16 06:20 Creatinine 8.9 mg/dL (0.7-1.3) H* D 08/13/16 06:20 Creat Clearance w eGFR 3.95 (>60) 08/10/16 05:30 Calcium 8.8 mg/dL (8.5-10.1) 08/13/16 06:20 Total Bilirubin 0.9 mg/dL (0.2-1.0) D 08/10/16 05:30 AST 20 U/L (15-37) 08/10/16 05:30 ALT 31 U/L (12-78) 08/10/16 05:30 Alkaline Phosphatase 156 U/L (45-117) H 08/10/16 05:30 Total Protein 7.4 g/dl (6.4-8.2) 08/10/16 05:30 Albumin 2.5 g/dl (3.4-5.0) L 08/10/16 05:30 Active Medications Generic Name Dose Route Start Last Admin Trade Name Freq PRN Reason Stop Dose Admin Acetaminophen 650 mg 08/10/16 16:51 08/13/16 15:56 Tylenol - PO 650 mg Q4H PRN Administration FEVER OR PAIN Acetaminophen 650 mg 08/11/16 15:11 Tylenol - PO Q4H PRN Calcium Acetate 667 mg 08/10/16 17:30 08/13/16 11:52 Phoslo - PO 667 mg TIDCM [facility] Administration Clopidogrel Bisulfate 75 mg 08/11/16 10:00 08/13/16 09:12 Plavix - PO 75 mg DAILY [facility] Administration Collagenase 1 applic 08/11/16 10:00 08/13/16 09:13 Santyl - TP Not Given DAILY [facility] Epoetin Alexander 20,000 unit 08/14/16 13:09 Procrit - SQ 08/14/16 13:10 ONCE ONE Heparin Sodium (Porcine) 5,000 unit 08/10/16 22:00 08/13/16 13:29 Heparin - SQ 5,000 unit TID [facility] Administration Piperacillin Sod/Tazobactam Sod 50 mls @ 100 mls/hr 08/11/16 18:00 08/13/16 09: 13 Zosyn 2.25gm Ivpb (Pre-Docked) IVPB 100 mls/hr Q8H-IV [facility] Administration Protocol Insulin Aspart 1 vial 08/10/16 22:00 08/13/16 11:51 Novolog Vial Sliding Scale - SQ Not Given ACHS [facility] Protocol Insulin Detemir 6 units 08/10/16 22:00 08/12/16 22:47 Levemir Vial SQ 6 units HS [facility] Administration Minoxidil 10 mg 08/11/16 10:00 08/13/16 09:12 Loniten - PO 10 mg DAILY [facility] Administration Morphine Sulfate 4 mg 08/10/16 16:51 08/11/16 06:41 Morphine Injection - IVPUSH 4 mg Q4H PRN Administration PAIN Ondansetron HCl 8 mg 08/12/16 14:07 08/13/16 15:52 Zofran Odt - SL 8 mg Q6H PRN Administration NAUSEA AND/OR VOMITING Oxycodone HCl 5 mg 08/13/16 13:08 Roxicodone - PO Q4H PRN PAIN Senna/Docusate Sodium 1 tablet 08/13/16 13:15 08/13/16 13:29 Pericolace - PO 1 tablet BID [facility] Administration Torsemide 20 mg 08/11/16 06:00 08/13/16 13:29 Demadex - PO 20 mg BIDLASIX [facility] Administration Microbiology 08/10/16 15:20 Gram Stain - Final Tissue-Other Tissue Culture - Final Proteus Mirabilis Pseudomonas Aeruginosa Staphylococcus Coagulase Neg Anaerobic Culture - Final NO ANAEROBES WERE ISOLATED ASSESSMENT/PLAN: 55 yo AA M with h/o HTN, uncontrolled IDDM, ESRD on HD (T,,) and osteomyelitis of the R 4th and 5th toes s/p amputation admitted to med-surg for further debridement and amputation. Dry Gangrene, s/p LisFranc amputation - Post-op day 3 - Wound culture grew davis sensitive gram -ve * on zosyn 2.25gm Q8H day 3 - Cont. wound care and daily dressing - Oxycodone 10mg Q4H PRN + Morphine 4mg for severe pain > 6/10 - No weight bearing on R foot x 2 weeks History of osteomyelitis in Right foot - ESR improving - Vancomycin 1gm during every dialysis session ESRD on HD - Cont. dialysis T, Th, Sat IDDM - Controlled - ISS - Levemir 6 units HS - BGM HTN-Chronic - Continue Minoxidil 10md daily - Continue Turosemide 20mg daily Anemia - 2/2 ESRD - At baseline FEN - IVF not indicated - Follow lytes after HD - Renal Diet Prophylaxis - DVT: heparin SQ - GI: not indicated Disposition - Cont. to monitor on med-surg floor over the weekend Visit type - Emergency Visit Emergency Visit: No - New Patient This patient is new to me today: No - Critical Care Critical Care patient: No
[2016-08-13] MEDS: INSULIN DETEMIR 100 UNITS/ML MDV SQ SCH (21:34)
[2016-08-14] MEDS: PIPERACILLIN/TAZOB 2.25 GM 50 ML IVPB SCH ×3 (02:24→18:50)
[2016-08-14] MEDS: HEPARIN NA (PORCINE) 5,000 UNITS/ML 1ML VIAL SQ SCH ×3 (06:14→21:41)
[2016-08-14] MEDS: TORSEMIDE 20 MG TABLET (FP) PO SCH ×2 (06:14→16:43)
[2016-08-14] MEDS: INSULIN SLIDING SCALE (NOVOLOG) 1 VIAL SQ SCH ×4 (06:19→21:42)
[2016-08-14 07:43] LABS: MCH 27.6 pg (25.7-33.7); MCHC 32.7 g/dl (32.0-35.9); MEAN CELL VOLUME 84.3 fl (80-96); MEAN PLT VOLUME 7.2 fl (7.5-11.1); PLATELET COUNT 293 K/MM3 (134-434); RDW 15.7 % (11.9-15.9); WHITE BLOOD COUNT 15.3 K/mm3 (4.0-10.0)
[2016-08-14 08:06] LABS: ANION GAP 12 (8-16); C-REACTIVE PROTEIN 13.9 MG/DL (0.00-0.3); CALCIUM 8.7 mg/dL (8.5-10.1); CO2 30 mmol/L (21-32); GLUCOSE,RANDOM 94 mg/dL (74-106); PHOSPHOROUS 5.1 mg/dL (2.5-4.9)
[2016-08-14] MEDS: CALCIUM ACETATE 667 MG CAPSULE (FP) PO SCH ×3 (08:22→16:43)
--- NOTE | 2016-08-14 09:03 | PN ---
Progress Note (short form) - Note Progress Note: asymptomatic. states pain is controlled with tylenol. very small BM this AM. denies CP, SOB,fever, chills, N/V/C/D Current Medications Generic Name Dose Route Start Last Admin Trade Name Freq PRN Reason Stop Dose Admin Acetaminophen 650 mg 08/10/16 16:51 08/13/16 20:41 Tylenol - PO 650 mg Q4H PRN Administration FEVER OR PAIN Acetaminophen 650 mg 08/11/16 15:11 08/14/16 07:05 Tylenol - PO 650 mg Q4H PRN Administration Calcium Acetate 667 mg 08/10/16 17:30 08/14/16 08:22 Phoslo - PO 667 mg TIDCM [facility] Administration Clopidogrel Bisulfate 75 mg 08/11/16 10:00 08/13/16 09:12 Plavix - PO 75 mg DAILY [facility] Administration Collagenase 1 applic 08/11/16 10:00 08/13/16 09:13 Santyl - TP Not Given DAILY [facility] Epoetin Alexander 20,000 unit 08/14/16 13:09 Procrit - SQ 08/14/16 13:10 ONCE ONE Heparin Sodium (Porcine) 5,000 unit 08/10/16 22:00 08/14/16 06:14 Heparin - SQ 5,000 unit TID [facility] Administration Piperacillin Sod/Tazobactam Sod 50 mls @ 100 mls/hr 08/11/16 18:00 08/14/16 02: 24 Zosyn 2.25gm Ivpb (Pre-Docked) IVPB 100 mls/hr Q8H-IV [facility] Administration Protocol Insulin Aspart 1 vial 08/10/16 22:00 08/14/16 06:19 Novolog Vial Sliding Scale - SQ Not Given ACHS [facility] Protocol Insulin Detemir 6 units 08/10/16 22:00 08/13/16 21:34 Levemir Vial SQ 6 units HS [facility] Administration Minoxidil 10 mg 08/11/16 10:00 08/13/16 09:12 Loniten - PO 10 mg DAILY [facility] Administration Ondansetron HCl 8 mg 08/12/16 14:07 08/13/16 15:52 Zofran Odt - SL 8 mg Q6H PRN Administration NAUSEA AND/OR VOMITING Oxycodone HCl 5 mg 08/13/16 13:08 Roxicodone - PO Q4H PRN PAIN Senna/Docusate Sodium 1 tablet 08/13/16 13:15 08/13/16 21:35 Pericolace - PO 1 tablet BID [facility] Administration Torsemide 20 mg 08/11/16 06:00 08/14/16 06:14 Demadex - PO 20 mg BIDLASIX [facility] Administration Last Vital Signs Temp Pulse Resp BP Pulse Ox 97.8 F 70 18 124/65 93 L 08/14/16 08:23 08/14/16 08:23 08/14/16 08:23 08/14/16 08:23 08/13/16 09:00 General NAD CV s1 S2 + Extremities R foot wrapped in c/d/i CBCD WBC 15.3 K/mm3 (4.0-10.0) H 08/14/16 06:30 RBC 3.22 M/mm3 (4.00-5.60) L 08/14/16 06:30 Hgb 8.9 GM/dL (11.7-16.9) L 08/14/16 06:30 Hct 27.1 % (35.4-49) L 08/14/16 06:30 MCV 84.3 fl (80-96) 08/14/16 06:30 MCHC 32.7 g/dl (32.0-35.9) 08/14/16 06:30 RDW 15.7 % (11.9-15.9) 08/14/16 06:30 Plt Count 293 K/MM3 (134-434) 08/14/16 06:30 MPV 7.2 fl (7.5-11.1) L 08/14/16 06:30 CMP Sodium 133 mmol/L (136-145) L 08/14/16 06:30 Potassium 4.2 mmol/L (3.5-5.1) 08/14/16 06:30 Chloride 91 mmol/L (98-107) L 08/14/16 06:30 Carbon Dioxide 30 mmol/L (21-32) 08/14/16 06:30 Anion Gap 12 (8-16) 08/14/16 06:30 BUN 49 mg/dL (7-18) H 08/14/16 06:30 Creatinine 8.9 mg/dL (0.7-1.3) H* D 08/13/16 06:20 Creat Clearance w eGFR 3.95 (>60) 08/10/16 05:30 Calcium 8.7 mg/dL (8.5-10.1) 08/14/16 06:30 Total Bilirubin 0.9 mg/dL (0.2-1.0) D 08/10/16 05:30 AST 20 U/L (15-37) 08/10/16 05:30 ALT 31 U/L (12-78) 08/10/16 05:30 Alkaline Phosphatase 156 U/L (45-117) H 08/10/16 05:30 Total Protein 7.4 g/dl (6.4-8.2) 08/10/16 05:30 Albumin 2.5 g/dl (3.4-5.0) L 08/10/16 05:30 Microbiology 08/10/16 15:20 Gram Stain - Final Tissue-Other Tissue Culture - Final Proteus Mirabilis Pseudomonas Aeruginosa Staphylococcus Coagulase Neg Anaerobic Culture - Final NO ANAEROBES WERE ISOLATED ASSESSMENT AND PLAN: 55yo M wtih PMH DM, ESRD on HD, HTN and recent OM of the R foot 4th and 5th digit with amputation last month and currently on Vanco treatment presented to the ER with intractable pain and foul odor 1. Dry gangrene of the R forefoot- s/p transmetatarsal amputation 08/10. wound appears to necrotic per ID. may require revision. Wcx appears to be the same polyorganisms from admission. cont Zosyn day 4. on Vanco with HD for MRSA OM. ID and podiatry on board 2. ESRD on HD-cont HD per normal schedule. Nephro on board 3. Normocytic anemia- hemoconcentrated on admission likely. now at Hgb baseline. no signs of active bleeding. Hgb stable. procrit weekly 4. HTn- controlled 5. DM- controlled.cont home medications. iss, bgm 6. DVT ppx- hep sq Visit type - Emergency Visit Emergency Visit: Yes ED Registration Date: 08/09/16 Care time: The patient presented to the Emergency Department on the above date and was hospitalized for further evaluation of their emergent condition. - New Patient This patient is new to me today: No - Critical Care Critical Care patient: No - Discharge Referral Referred to [facility] Med P.C.: No
[2016-08-14 09:15] LABS: CREATININE 10.9 mg/dL (0.7-1.3)
[2016-08-14] MEDS: COLLAGENASE CLOSTRIDIUM HIST. 30 GRAMS TUBE TP SCH (10:47)
[2016-08-14] MEDS ORDERED: EPOETIN ALFA 20,000 UNIT/1 ML VIAL SQ ONE (13:09)
[2016-08-14] MEDS: SENNOSIDES/DOCUSATE COMBO (SENNA PLUS) TABLET (UD) PO SCH ×2 (16:12→21:42)
[2016-08-14] MEDS ORDERED: PT OWN MED DRAWER 7, Y5N ONE (16:37)
[2016-08-14] MEDS: CLOPIDOGREL BISULFATE 75 MG TABLET (FP) PO SCH (16:43)
[2016-08-14] MEDS: MINOXIDIL 10 MG TABLET PO SCH (16:45)
[2016-08-14] MEDS: ACETAMINOPHEN 325 MG TABLET (FP) PO PRN (17:34)
[2016-08-14] MEDS: INSULIN DETEMIR 100 UNITS/ML MDV SQ SCH (21:42)
[2016-08-15] MEDS: PIPERACILLIN/TAZOB 2.25 GM 50 ML IVPB SCH ×3 (01:40→17:38)
[2016-08-15] MEDS: HEPARIN NA (PORCINE) 5,000 UNITS/ML 1ML VIAL SQ SCH ×3 (06:33→22:15)
[2016-08-15] MEDS: TORSEMIDE 20 MG TABLET (FP) PO SCH ×2 (06:34→13:19)
[2016-08-15] MEDS: INSULIN SLIDING SCALE (NOVOLOG) 1 VIAL SQ SCH ×4 (06:34→22:15)
[2016-08-15] MEDS: CALCIUM ACETATE 667 MG CAPSULE (FP) PO SCH ×3 (08:28→17:37)
[2016-08-15] MEDS ORDERED: PT OWN MED DRAWER 7, Y5N ONE (10:06)
[2016-08-15] MEDS: SENNOSIDES/DOCUSATE COMBO (SENNA PLUS) TABLET (UD) PO SCH ×2 (10:10→22:14)
[2016-08-15] MEDS: CLOPIDOGREL BISULFATE 75 MG TABLET (FP) PO SCH (10:10)
[2016-08-15] MEDS: MINOXIDIL 10 MG TABLET PO SCH (10:14)
[2016-08-15] MEDS: COLLAGENASE CLOSTRIDIUM HIST. 30 GRAMS TUBE TP SCH (10:16)
[2016-08-15] MEDS: ACETAMINOPHEN 325 MG TABLET (FP) PO PRN ×2 (10:22→16:19)
--- NOTE | 2016-08-15 14:51 | PN ---
Progress Note (short form) - Note Progress Note: asymptomatic. states pain is controlled with tylenol. very small BM this AM. denies CP, SOB,fever, chills, N/V/C/D Current Medications Generic Name Dose Route Start Last Admin Trade Name Freq PRN Reason Stop Dose Admin Acetaminophen 650 mg 08/10/16 16:51 08/15/16 10:22 Tylenol - PO 650 mg Q4H PRN Administration FEVER OR PAIN Acetaminophen 650 mg 08/11/16 15:11 08/14/16 07:05 Tylenol - PO 650 mg Q4H PRN Administration Calcium Acetate 667 mg 08/10/16 17:30 08/15/16 12:06 Phoslo - PO 667 mg TIDCM MONIK Administration Clopidogrel Bisulfate 75 mg 08/11/16 10:00 08/15/16 10:10 Plavix - PO 75 mg DAILY MONIK Administration Collagenase 1 applic 08/11/16 10:00 08/15/16 10:16 Santyl - TP Not Given DAILY [facility] Heparin Sodium (Porcine) 5,000 unit 08/10/16 22:00 08/15/16 13:19 Heparin - SQ 5,000 unit TID MONIK Administration Piperacillin Sod/Tazobactam Sod 50 mls @ 100 mls/hr 08/11/16 18:00 08/15/16 10: 11 Zosyn 2.25gm Ivpb (Pre-Docked) IVPB 100 mls/hr Q8H-IV MONIK Administration Protocol Insulin Aspart 1 vial 08/10/16 22:00 08/15/16 12:03 Novolog Vial Sliding Scale - SQ Not Given ACHS [facility] Protocol Insulin Detemir 6 units 08/10/16 22:00 08/14/16 21:42 Levemir Vial SQ 6 units HS MONIK Administration Minoxidil 10 mg 08/11/16 10:00 08/15/16 10:14 Loniten - PO 10 mg DAILY MONIK Administration Ondansetron HCl 8 mg 08/12/16 14:07 08/13/16 15:52 Zofran Odt - SL 8 mg Q6H PRN Administration NAUSEA AND/OR VOMITING Oxycodone HCl 5 mg 08/13/16 13:08 Roxicodone - PO Q4H PRN PAIN Senna/Docusate Sodium 1 tablet 08/13/16 13:15 08/15/16 10:10 Pericolace - PO 1 tablet BID MONIK Administration Torsemide 20 mg 08/11/16 06:00 08/15/16 13:19 Demadex - PO 20 mg BIDLASIX MONIK Administration Last Vital Signs Temp Pulse Resp BP Pulse Ox 98.6 F 76 18 130/64 95 08/15/16 09:00 08/15/16 09:00 08/15/16 09:00 08/15/16 09:00 08/15/16 09:00 General NAD CV s1 S2 + Extremities R foot wrapped in c/d/i CBCD WBC 15.3 K/mm3 (4.0-10.0) H 08/14/16 06:30 RBC 3.22 M/mm3 (4.00-5.60) L 08/14/16 06:30 Hgb 8.9 GM/dL (11.7-16.9) L 08/14/16 06:30 Hct 27.1 % (35.4-49) L 08/14/16 06:30 MCV 84.3 fl (80-96) 08/14/16 06:30 MCHC 32.7 g/dl (32.0-35.9) 08/14/16 06:30 RDW 15.7 % (11.9-15.9) 08/14/16 06:30 Plt Count 293 K/MM3 (134-434) 08/14/16 06:30 MPV 7.2 fl (7.5-11.1) L 08/14/16 06:30 CMP Sodium 133 mmol/L (136-145) L 08/14/16 06:30 Potassium 4.2 mmol/L (3.5-5.1) 08/14/16 06:30 Chloride 91 mmol/L (98-107) L 08/14/16 06:30 Carbon Dioxide 30 mmol/L (21-32) 08/14/16 06:30 Anion Gap 12 (8-16) 08/14/16 06:30 BUN 49 mg/dL (7-18) H 08/14/16 06:30 Creatinine 8.9 mg/dL (0.7-1.3) H* D 08/13/16 06:20 Creat Clearance w eGFR 3.95 (>60) 08/10/16 05:30 Calcium 8.7 mg/dL (8.5-10.1) 08/14/16 06:30 Total Bilirubin 0.9 mg/dL (0.2-1.0) D 08/10/16 05:30 AST 20 U/L (15-37) 08/10/16 05:30 ALT 31 U/L (12-78) 08/10/16 05:30 Alkaline Phosphatase 156 U/L (45-117) H 08/10/16 05:30 Total Protein 7.4 g/dl (6.4-8.2) 08/10/16 05:30 Albumin 2.5 g/dl (3.4-5.0) L 08/10/16 05:30 Microbiology 08/10/16 15:20 Gram Stain - Final Tissue-Other Tissue Culture - Final Proteus Mirabilis Pseudomonas Aeruginosa Staphylococcus Coagulase Neg Anaerobic Culture - Final NO ANAEROBES WERE ISOLATED ASSESSMENT AND PLAN: 55yo M wtih PMH DM, ESRD on HD, HTN and recent OM of the R foot 4th and 5th digit with amputation last month and currently on Vanco treatment presented to the ER with intractable pain and foul odor 1. Dry gangrene of the R forefoot- s/p transmetatarsal amputation 08/10. wound appears to necrotic per ID. may require revision. Wcx appears to be the same polyorganisms from admission. cont Zosyn day 5. on Vanco with HD for MRSA OM. level subtherapeutic. will need to be increased with next HD session. ID and podiatry on board 2. constipation- possible opiate induced. no relief with stool softeners. relistor x1 3. ESRD on HD-cont HD per normal schedule. Nephro on board 4. Normocytic anemia- hemoconcentrated on admission likely. now at Hgb baseline. no signs of active bleeding. Hgb stable. procrit weekly 5. HTn- controlled 6. DM- controlled.cont home medications. iss, bgm 7. DVT ppx- hep sq Visit type - Emergency Visit Emergency Visit: Yes ED Registration Date: 08/09/16 Care time: The patient presented to the Emergency Department on the above date and was hospitalized for further evaluation of their emergent condition. - New Patient This patient is new to me today: No - Critical Care Critical Care patient: No - Discharge Referral Referred to [facility] Med P.C.: No
[2016-08-15] MEDS: Methylnaltrexone Bromide 12 MG/0.6 ML KIT SQ SCH (16:09)
--- NOTE | 2016-08-15 18:01 | PN ---
Progress Note, Physician Chief Complaint: The patient seen in his bed. Feels much better. No new complaints. Minimal ambulation History of Present Illness: The patient's medical history is significant for Hypertension, Type 2 Diabetes mellitus, ESRD, on HD at unit TTS, PVD, Foot ulcers and gangrene. S/P TMA. Heeling better today. The patient is adamant about going home. - Current Medication List Current Medications: Active Medications Acetaminophen (Tylenol -) 650 mg PO Q4H PRN PRN Reason: FEVER OR PAIN Last Admin: 08/15/16 16:19 Dose: 650 mg Acetaminophen (Tylenol -) 650 mg PO Q4H PRN Last Admin: 08/14/16 07:05 Dose: 650 mg Calcium Acetate (Phoslo -) 667 mg PO TIDCM [facility] Last Admin: 08/15/16 17:37 Dose: 667 mg Clopidogrel Bisulfate (Plavix -) 75 mg PO DAILY [facility] Last Admin: 08/15/16 10:10 Dose: 75 mg Collagenase (Santyl -) 1 applic TP DAILY [facility] Last Admin: 08/15/16 10:16 Dose: Not Given Heparin Sodium (Porcine) (Heparin -) 5,000 unit SQ TID [facility] Last Admin: 08/15/16 13:19 Dose: 5,000 unit Piperacillin Sod/Tazobactam Sod (Zosyn 2.25gm Ivpb (Pre-Docked)) 50 mls @ 100 mls/hr IVPB Q8H-IV MONIK PRN Reason: Protocol Last Admin: 08/15/16 17:38 Dose: 100 mls/hr Insulin Aspart (Novolog Vial Sliding Scale -) 1 vial SQ ACHS MONIK PRN Reason: Protocol Last Admin: 08/15/16 17:37 Dose: 2 units Insulin Detemir (Levemir Vial) 6 units SQ HS [facility] Last Admin: 08/14/16 21:42 Dose: 6 units Methylnaltrexone [place] (Relistor -) 8 mg SQ DAILY [facility] Last Admin: 08/15/16 16:09 Dose: 8 mg Minoxidil (Loniten -) 10 mg PO DAILY [facility] Last Admin: 08/15/16 10:14 Dose: 10 mg Ondansetron HCl (Zofran Odt -) 8 mg SL Q6H PRN PRN Reason: NAUSEA AND/OR VOMITING Last Admin: 08/13/16 15:52 Dose: 8 mg Oxycodone HCl (Roxicodone -) 5 mg PO Q4H PRN PRN Reason: PAIN Senna/Docusate Sodium (Pericolace -) 1 tablet PO BID [facility] Last Admin: 08/15/16 10:10 Dose: 1 tablet Torsemide (Demadex -) 20 mg PO BIDLASIX [facility] Last Admin: 08/15/16 13:19 Dose: 20 mg - Objective Vital Signs: Vital Signs Temperature 98.6 F 08/15/16 09:00 Pulse Rate 76 08/15/16 09:00 Respiratory Rate 18 08/15/16 09:00 Blood Pressure 130/64 08/15/16 09:00 O2 Sat by Pulse Oximetry (%) 95 08/15/16 09:00 Constitutional: Yes: Well Nourished, Calm Eyes: Yes: Conjunctiva Clear HENT: Yes: Normocephalic Neck: Yes: Trachea Midline Cardiovascular: Yes: S1 Respiratory: Yes: Diminished. No: Rales, Rhonchi Gastrointestinal: Yes: Normal Bowel Sounds, Soft Labs: CBC, BMP 08/14/16 06:30 08/14/16 06:30 INR, PTT INR 1.41 (0.82-1.09) H 08/09/16 08:20 Problem List - Problems (1) Gangrene of toe of right foot Code(s): I96 - GANGRENE, NOT ELSEWHERE CLASSIFIED (2) Anemia Code(s): D64.9 - ANEMIA, UNSPECIFIED (3) Anemia in ESRD (end-stage renal disease) Code(s): N18.6 - END STAGE RENAL DISEASE D63.1 - ANEMIA IN CHRONIC KIDNEY DISEASE (4) Chronic diabetic ulcer of left foot determined by examination Code(s): E11.621 - TYPE 2 DIABETES MELLITUS WITH FOOT ULCER L97.529 - NON-PRESSURE CHRONIC ULCER OTH PRT LEFT FOOT W UNSP SEVERITY (5) Diabetic foot Code(s): E11.8 - TYPE 2 DIABETES MELLITUS WITH UNSPECIFIED COMPLICATIONS (6) Infected ulcer of skin Code(s): L98.499 - NON-PRESSURE CHRONIC ULCER OF SKIN OF SITES W UNSP SEVERITY L08.9 - LOCAL INFECTION OF THE SKIN AND SUBCUTANEOUS TISSUE, UNSP Qualifiers: Non-pressure ulcer stage: unspecified non-pressure ulcer stage Qualified Code(s): L98.499 - Non-pressure chronic ulcer of skin of other sites with unspecified severity; L08.9 - Local infection of the skin and subcutaneous tissue, unspecified (7) Type 2 diabetes mellitus with foot ulcer Code(s): E11.621 - TYPE 2 DIABETES MELLITUS WITH FOOT ULCER L97.509 - NON-PRESSURE CHRONIC ULCER OTH PRT UNSP FOOT W UNSP SEVERITY Qualifiers: (8) HTN (hypertension) Code(s): I10 - ESSENTIAL (PRIMARY) HYPERTENSION Qualifiers: Hypertension type: essential hypertension Qualified Code(s): I10 - Essential (primary) hypertension Assessment/Plan 55 y/o male with ESRD, admitted with worsening gangrene of the right foot and toes. The patient had TMA Anemia of CKD, complicated by the infectious process. Had uneventful HD yesterday. Next HD on tuesday. The next challenges incluse for the patient's wound to heal, and at the same time patient maintain his ambulatory status. Wants only to be discharged home. Sarah Marks MD
[2016-08-15] MEDS: INSULIN DETEMIR 100 UNITS/ML MDV SQ SCH (22:15)
[2016-08-16] MEDS: PIPERACILLIN/TAZOB 2.25 GM 50 ML IVPB SCH ×3 (02:04→17:30)
[2016-08-16] MEDS: INSULIN SLIDING SCALE (NOVOLOG) 1 VIAL SQ SCH ×4 (06:16→21:33)
[2016-08-16] MEDS: TORSEMIDE 20 MG TABLET (FP) PO SCH ×2 (06:21→15:38)
[2016-08-16] MEDS: HEPARIN NA (PORCINE) 5,000 UNITS/ML 1ML VIAL SQ SCH ×3 (06:22→21:26)
[2016-08-16] MEDS ORDERED: PT OWN MED DRAWER 7, Y5N ONE ×2 (06:39→09:49)
[2016-08-16] MEDS: CALCIUM ACETATE 667 MG CAPSULE (FP) PO SCH ×3 (09:24→17:29)
--- NOTE | 2016-08-16 10:02 | PN ---
Progress Note (short form) - Note Progress Note: complains of constipation Vital Signs Period Temp Pulse Resp BP Sys/Salas Pulse Ox Last 24 Hr 99.1 F 78 18-20 135/63 95 cor-rrr lungs clear +drainage on dressing, when removed still with darkened skin on sole of foot, kait intact with dehiscense at the corner CBC, BMP 08/14/16 06:30 08/14/16 06:30 Microbiology 08/10/16 15:20 Tissue-Other Gram Stain - Final 08/10/16 15:20 Tissue-Other Tissue Culture - Final Proteus Mirabilis Pseudomonas Aeruginosa Staphylococcus Coagulase Neg 08/10/16 15:20 Tissue-Other Anaerobic Culture - Final NO ANAEROBES WERE ISOLATED 08/09/16 08:20 Wound Gram Stain - Final 08/09/16 08:20 Wound Wound Culture - Final Pseudomonas Aeruginosa Proteus Mirabilis Klebsiella Pneumoniae a/p diabetic foot infection osteomyelitis esrd/hd s/p TMA for podiatry f/u would favor continuing iv antibiotics vanco with HD and zosyn if SNF placement or vanco with HD and fortaz 2 grams with HD and po flagyl repeat labs in am wbc is still elevated plan 6 weeks iv antibiotics-
[2016-08-16] MEDS: SENNOSIDES/DOCUSATE COMBO (SENNA PLUS) TABLET (UD) PO SCH ×2 (10:15→21:26)
[2016-08-16] MEDS: CLOPIDOGREL BISULFATE 75 MG TABLET (FP) PO SCH (10:15)
[2016-08-16] MEDS: MINOXIDIL 10 MG TABLET PO SCH (10:19)
[2016-08-16] MEDS: Methylnaltrexone Bromide 12 MG/0.6 ML KIT SQ SCH (10:21)
[2016-08-16] MEDS ORDERED: INSULIN DETEMIR 100 UNITS/ML MDV SQ ONE (10:56)
[2016-08-16] MEDS ORDERED: INSULIN (NOVOLOG) ASPART 100 UNITS/ML 10ML VIAL ONE (10:56)
--- NOTE | 2016-08-16 11:17 | PN ---
Progress Note (short form) - Note Progress Note: Podiatry F/U: Seen and evaluated at bedside, NAD. S/p R TMA. As per ID, will treat with IV abx. Patient is clearly depressed in regards to his current condition and the potential over losing his leg. Currently afebrile, VSS. ABDIAS: R foot: dressing C/D/I, no active bleeding, no strikethrough. There is a post- surgical TMA stump with well coaptation medially, wound dehiscence laterally, fibrogranular base underlying dehisced wound, no purulence, no fluctuance, no periwound erythema, no ascending cellulitis, no signs of active infection. There is duskiness to the plantar lateral aspect of the flap. The flap is cooler to touch. WBC: 15.3 Imp: 55 year old DM, PVD M s/p R TMA for gangrene 1. IV abx as per Infectious Disease 2. Strongly recommend psychiatry evaluation for coping with his depression 3. May need stump debridement vs. BKA in the future. I would hold off for now, attempt hyperbaric oxygen therapy. Patient clearly not ready for BKA at this juncture. 4. Non-WB R foot 5. Will follow. May need d/c to [facility] depending on course and duration of IV abx Mel Almanzar DPM
[2016-08-16] MEDS: COLLAGENASE CLOSTRIDIUM HIST. 30 GRAMS TUBE TP SCH (12:06)
--- NOTE | 2016-08-16 14:07 | PN ---
Progress Note, Physician Chief Complaint: The patient seen in bed Seems depressed. "This is nothing like I expected" No chest pains. History of Present Illness: The patient's medical history is significant for Hypertension, Type 2 Diabetes mellitus, ESRD, on HD at unit TTS, PVD, Foot ulcers and gangrene. S/P TMA. Feeling very depressed ID notes reviewed. Agree that he should be discharged to SNF for better IV Abx therapy. - Current Medication List Current Medications: Active Medications Acetaminophen (Tylenol -) 650 mg PO Q4H PRN PRN Reason: FEVER OR PAIN Last Admin: 08/15/16 16:19 Dose: 650 mg Acetaminophen (Tylenol -) 650 mg PO Q4H PRN Last Admin: 08/14/16 07:05 Dose: 650 mg Calcium Acetate (Phoslo -) 667 mg PO TIDCM [facility] Last Admin: 08/16/16 12:34 Dose: 667 mg Clopidogrel Bisulfate (Plavix -) 75 mg PO DAILY [facility] Last Admin: 08/16/16 10:15 Dose: 75 mg Collagenase (Santyl -) 1 applic TP DAILY [facility] Last Admin: 08/16/16 12:06 Dose: 1 applic Heparin Sodium (Porcine) (Heparin -) 5,000 unit SQ TID [facility] Last Admin: 08/16/16 06:22 Dose: 5,000 unit Piperacillin Sod/Tazobactam Sod (Zosyn 2.25gm Ivpb (Pre-Docked)) 50 mls @ 100 mls/hr IVPB Q8H-IV MONIK PRN Reason: Protocol Last Admin: 08/16/16 10:15 Dose: 100 mls/hr Insulin Aspart (Novolog Vial Sliding Scale -) 1 vial SQ ACHS MONIK PRN Reason: Protocol Last Admin: 08/16/16 12:04 Dose: Not Given Insulin Detemir (Levemir Vial) 6 units SQ HS [facility] Last Admin: 08/15/16 22:15 Dose: 6 units Methylnaltrexone [place] (Relistor -) 8 mg SQ DAILY [facility] Last Admin: 08/16/16 10:21 Dose: 8 mg Minoxidil (Loniten -) 10 mg PO DAILY [facility] Last Admin: 08/16/16 10:19 Dose: 10 mg Ondansetron HCl (Zofran Odt -) 8 mg SL Q6H PRN PRN Reason: NAUSEA AND/OR VOMITING Last Admin: 08/13/16 15:52 Dose: 8 mg Senna/Docusate Sodium (Pericolace -) 1 tablet PO BID [facility] Last Admin: 08/16/16 10:15 Dose: 1 tablet Torsemide (Demadex -) 20 mg PO BIDLASIX [facility] Last Admin: 08/16/16 06:21 Dose: 20 mg - Objective Vital Signs: Vital Signs Temperature 99.1 F 08/16/16 06:04 Pulse Rate 78 08/16/16 06:04 Respiratory Rate 20 08/16/16 06:04 Blood Pressure 135/63 08/16/16 06:04 O2 Sat by Pulse Oximetry (%) 95 08/15/16 21:00 Constitutional: Yes: No Distress, Anxious Eyes: Yes: Conjunctiva Clear HENT: Yes: Normocephalic Neck: Yes: Trachea Midline Cardiovascular: Yes: S1, S2 Respiratory: Yes: Regular, CTA Bilaterally Gastrointestinal: Yes: Normal Bowel Sounds Extremities: Yes: Amputation (TMA Right) Labs: CBC, BMP 08/14/16 06:30 08/14/16 06:30 INR, PTT INR 1.41 (0.82-1.09) H 08/09/16 08:20 Problem List - Problems (1) Gangrene of toe of right foot Code(s): I96 - GANGRENE, NOT ELSEWHERE CLASSIFIED (2) Anemia Code(s): D64.9 - ANEMIA, UNSPECIFIED (3) Anemia in ESRD (end-stage renal disease) Code(s): N18.6 - END STAGE RENAL DISEASE D63.1 - ANEMIA IN CHRONIC KIDNEY DISEASE (4) Chronic diabetic ulcer of left foot determined by examination Code(s): E11.621 - TYPE 2 DIABETES MELLITUS WITH FOOT ULCER L97.529 - NON-PRESSURE CHRONIC ULCER OTH PRT LEFT FOOT W UNSP SEVERITY (5) Diabetic foot Code(s): E11.8 - TYPE 2 DIABETES MELLITUS WITH UNSPECIFIED COMPLICATIONS (6) Infected ulcer of skin Code(s): L98.499 - NON-PRESSURE CHRONIC ULCER OF SKIN OF SITES W UNSP SEVERITY L08.9 - LOCAL INFECTION OF THE SKIN AND SUBCUTANEOUS TISSUE, UNSP Qualifiers: Non-pressure ulcer stage: unspecified non-pressure ulcer stage Qualified Code(s): L98.499 - Non-pressure chronic ulcer of skin of other sites with unspecified severity; L08.9 - Local infection of the skin and subcutaneous tissue, unspecified (7) Type 2 diabetes mellitus with foot ulcer Code(s): E11.621 - TYPE 2 DIABETES MELLITUS WITH FOOT ULCER L97.509 - NON-PRESSURE CHRONIC ULCER OTH PRT UNSP FOOT W UNSP SEVERITY Qualifiers: (8) HTN (hypertension) Code(s): I10 - ESSENTIAL (PRIMARY) HYPERTENSION Qualifiers: Hypertension type: essential hypertension Qualified Code(s): I10 - Essential (primary) hypertension Assessment/Plan 55 y/o male with ESRD, admitted with worsening gangrene of the right foot and toes. The patient had TMA Deprseed . Will get Psych Eval Next HD in AM Iv ABX to continue. Sarah Marks MD
--- NOTE | 2016-08-16 14:45 | PN ---
Physical Exam: SUBJECTIVE: Patient seen and examined No acute events overnight. Patient has mild discomfort of right forefoot, but states pain is controlled. Patient continues to complain of constipation. Patient denies any fever, chills, chest pain, shortness of breath, nausea, vomiting, diarrhea. OBJECTIVE: Vital Signs Period Temp Pulse Resp BP Sys/Salas Pulse Ox Last 24 Hr 99.1 F 78 18-20 135/63 95 GENERAL: The patient is awake, alert, and fully oriented, in no acute distress. HEAD: Normal with no signs of trauma. EYES: PERRL, extraocular movements intact, sclera anicteric, conjunctiva clear. ENT: Oropharynx clear without exudates, moist mucous membranes. NECK: supple, no JVD, trachea midline LUNGS: Breath sounds equal, clear to auscultation bilaterally, no wheezes, no crackles, no accessory muscle use. HEART: Regular rate and rhythm, S1, S2 without murmur, rub or gallop. ABDOMEN: Soft, nontender, nondistended, normoactive bowel sounds, no guarding, no rebound, no hepatosplenomegaly, no masses. EXTREMITIES: Right foot wrapped. Not examined. Laboratory Results - last 24 hr 08/15/16 08/15/16 08/16/16 17:36 22:05 06:15 POC Glucometer 177 198 113 08/16/16 11:48 POC Glucometer 147 Active Medications Generic Name Dose Route Start Last Admin Trade Name Freq PRN Reason Stop Dose Admin Acetaminophen 650 mg 08/10/16 16:51 08/15/16 16:19 Tylenol - PO 650 mg Q4H PRN Administration FEVER OR PAIN Acetaminophen 650 mg 08/11/16 15:11 08/14/16 07:05 Tylenol - PO 650 mg Q4H PRN Administration Calcium Acetate 667 mg 08/10/16 17:30 08/16/16 12:34 Phoslo - PO 667 mg TIDCM MONIK Administration Clopidogrel Bisulfate 75 mg 08/11/16 10:00 08/16/16 10:15 Plavix - PO 75 mg DAILY MONIK Administration Collagenase 1 applic 08/11/16 10:00 08/16/16 12:06 Santyl - TP 1 applic DAILY [facility]IK Administration Epoetin Alexander 10,000 unit 08/17/16 14:14 Procrit - SQ 08/17/16 14:15 ONCE ONE Heparin Sodium (Porcine) 5,000 unit 08/10/16 22:00 08/16/16 06:22 Heparin - SQ 5,000 unit TID MONIK Administration Piperacillin Sod/Tazobactam Sod 50 mls @ 100 mls/hr 08/11/16 18:00 08/16/16 10: 15 Zosyn 2.25gm Ivpb (Pre-Docked) IVPB 100 mls/hr Q8H-IV MONIK Administration Protocol Insulin Aspart 1 vial 08/10/16 22:00 08/16/16 12:04 Novolog Vial Sliding Scale - SQ Not Given ACHS [facility] Protocol Insulin Detemir 6 units 08/10/16 22:00 08/15/16 22:15 Levemir Vial SQ 6 units HS MONIK Administration Methylnaltrexone [place] 8 mg 08/15/16 15:00 08/16/16 10:21 Relistor - SQ 8 mg DAILY [facility] Administration Minoxidil 10 mg 08/11/16 10:00 08/16/16 10:19 Loniten - PO 10 mg DAILY [facility] Administration Ondansetron HCl 8 mg 08/12/16 14:07 08/13/16 15:52 Zofran Odt - SL 8 mg Q6H PRN Administration NAUSEA AND/OR VOMITING Senna/Docusate Sodium 1 tablet 08/13/16 13:15 08/16/16 10:15 Pericolace - PO 1 tablet BID MONIK Administration Torsemide 20 mg 08/11/16 06:00 08/16/16 06:21 Demadex - PO 20 mg BIDLASIX MONIK Administration ASSESSMENT/PLAN: 55 year old male with PMH of DM, ESRD on HD, HTN, osteomyelitis of the 4th and 5th digit on right foot requiring amputation on 08/10 presenting to the ED with pain and foul odor. 1. 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 Almanzar -ID and podiatry on board 2. Constipation - Possibly opiate induced - No improvement with pericolace, relistor or enema Plan: -Retry relistor 8 mg SQ -If no improvement, try tap water enema 3. ESRD on HD -Currently on /Tue/Tuesday regimen Plan: -Continue home regimen -Nephrology on board: Sarah Salmeron 4. Normocytic anemia -Hgb is stable -Likely due to CKD Plan: -Continue Procrit 10,000 units SQ 1 time dose with HD -Consult: Sarah Salmeron 5. HTN -Controlled Plan: -Continue Minoxidil 10 mg PO daily and Torsemide 20 mg PO BID 6. DM -stable Plan: -Continue ISS and BGM ACHS 7. DVT Prophylaxis Plan: -Heparin SQ 5000 units TID Dispo: As per [facility] "new d/c plan- home with s ND, referral made, f2f attached in referral, he will attend [facility] as outpatient, will give prescription to patient, and he will receive iv abx with HD at [facility], sending the prescription to them (# [phone], fax [phone])" Visit type - Emergency Visit Emergency Visit: No - New Patient This patient is new to me today: Yes Date on this admission: 08/16/16 - Critical Care Critical Care patient: No
--- NOTE | 2016-08-16 15:26 | PN ---
Teaching Attending Note Name of Resident: Jimbo Beckford ATTENDING PHYSICIAN STATEMENT I saw and evaluated the patient. I reviewed the resident's note and discussed the case with the resident. I agree with the resident's findings and plan as documented. SUBJECTIVE:still no BM since yeseterday, denies CP, SOB,fever, chills, N/v/C/D OBJECTIVE: Last Vital Signs Temp Pulse Resp BP Pulse Ox 97.9 F 77 16 125/63 95 08/16/16 15:17 08/16/16 15:17 08/16/16 15:17 08/16/16 15:17 08/15/16 21:00 General NAD ASSESSMENT AND PLAN: 55yo M wtih PMH DM, ESRD on HD, HTN and recent OM of the R foot 4th and 5th digit with amputation last month and currently on Vanco treatment presented to the ER with intractable pain and foul odor 1. Dry gangrene of the R forefoot- s/p transmetatarsal amputation 08/10. wound appears to necrotic per ID. may require revision. Wcx appears to be the same polyorganisms from admission. started on flagyl po. cont Zosyn day 6. on Vanco with HD for MRSA OM. ID and podiatry on board. will need 6 weeks of IV abx. 2. constipation- possible opiate induced. no relief with stool softeners. give another dose of relistor. enema if no relief 3. ESRD on HD-cont HD per normal schedule. Nephro on board 4. Normocytic anemia- hemoconcentrated on admission likely. now at Hgb baseline. no signs of active bleeding. Hgb stable. procrit weekly 5. HTn- controlled 6. DM- controlled.cont home medications. iss, bgm 7. DVT ppx- hep sq 8. highly recommend to pt about SNF placement. waiting on decision by patient.
[2016-08-16] MEDS: INSULIN DETEMIR 100 UNITS/ML MDV SQ SCH (21:33)
[2016-08-17] MEDS: PIPERACILLIN/TAZOB 2.25 GM 50 ML IVPB SCH ×3 (01:23→18:40)
[2016-08-17] MEDS ORDERED: INSULIN DETEMIR 100 UNITS/ML MDV SQ ONE (05:22)
[2016-08-17] MEDS: TORSEMIDE 20 MG TABLET (FP) PO SCH ×2 (05:52→14:01)
[2016-08-17] MEDS: HEPARIN NA (PORCINE) 5,000 UNITS/ML 1ML VIAL SQ SCH ×3 (05:56→21:53)
[2016-08-17] MEDS: INSULIN SLIDING SCALE (NOVOLOG) 1 VIAL SQ SCH ×4 (06:10→21:58)
[2016-08-17] MEDS: CALCIUM ACETATE 667 MG CAPSULE (FP) PO SCH ×3 (08:23→17:51)
[2016-08-17 08:34] LABS: ALBUMIN 2.1 g/dl (3.4-5.0); ANION GAP 13 (8-16); CALCIUM 8.5 mg/dL (8.5-10.1); CO2 29 mmol/L (21-32); GLUCOSE,RANDOM 59 mg/dL (74-106)
[2016-08-17 08:45] LABS: ALK PHOS 134 U/L (45-117); BILIRUBIN,TOTAL 0.4 mg/dL (0.2-1.0); SGOT/AST 20 U/L (15-37); SGPT/ALT 19 U/L (12-78); TOT PROT 7.2 g/dl (6.4-8.2)
[2016-08-17 09:10] LABS: CREATININE 11.9 mg/dL (0.7-1.3)
--- NOTE | 2016-08-17 09:34 | PN ---
Teaching Attending Note Name of Resident: Jimbo Beckford ATTENDING PHYSICIAN STATEMENT I saw and evaluated the patient. I reviewed the resident's note and discussed the case with the resident. I agree with the resident's findings and plan as documented. SUBJECTIVE:+BM yesterday. denies CP, SOB,fever, chills, N/V/C/D OBJECTIVE: Last Vital Signs Temp Pulse Resp BP Pulse Ox 99.0 F 79 18 141/63 96 08/17/16 08:27 08/17/16 08:27 08/17/16 08:27 08/17/16 08:08/16/16 21:00 General NAD ASSESSMENT AND PLAN: 55yo M wtih PMH DM, ESRD on HD, HTN and recent OM of the R foot 4th and 5th digit with amputation last month and currently on Vanco treatment presented to the ER with intractable pain and foul odor 1. Dry gangrene of the R forefoot- s/p transmetatarsal amputation 08/10. wound appears to necrotic per ID. may require revision. Leukocytosis improved. started on flagyl po. cont Zosyn day 7. will switch to fortaz with HD. on Vanco with HD for MRSA OM. ID and podiatry on board. will need 6 weeks of IV abx. HBO referal 2. constipation- possible opiate induced.improved. monitor 3. ESRD on HD-cont HD per normal schedule. Nephro on board 4. Normocytic anemia- hemoconcentrated on admission likely. now at Hgb baseline. no signs of active bleeding. Hgb stable. procrit weekly 5. HTn- controlled 6. DM- controlled.cont home medications. iss, bgm 7. DVT ppx- hep sq 8. d/c planning for the AM with VNS, HBO and IV abx with HD
--- NOTE | 2016-08-17 09:58 | PN ---
Physical Exam: SUBJECTIVE: Patient seen and examined No acute events overnight. Had 1 nonbloody BM. No complaints this morning. Denies chest pain, shortness of breath, fever, chills, nausea, vomiting, constipation, diarrhea OBJECTIVE: Vital Signs Period Temp Pulse Resp BP Sys/Salas Pulse Ox Last 24 Hr 97.9 F-99.0 F 75-79 16-20 125-141/54-75 95-96 GENERAL: The patient is awake, alert, and fully oriented, in no acute distress. HEAD: Normal with no signs of trauma. EYES: extraocular movements intact, sclera anicteric, conjunctiva clear. NECK: Trachea midline, full range of motion LUNGS: Breath sounds equal, clear to auscultation bilaterally, no wheezes, no crackles, no accessory muscle use. HEART: Regular rate and rhythm, S1, S2, + murmur at right lower sternal border ABDOMEN: Soft, nontender, nondistended, normoactive bowel sounds, no guarding, no rebound, no hepatosplenomegaly, no masses. EXTREMITIES: RIght foot wrapped, appeared clean and dry NEUROLOGICAL: Normal speech, gait not observed. PSYCH: Normal mood, normal affect. Laboratory Results - last 24 hr 08/16/16 08/16/16 08/16/16 11:48 17:35 21:28 Sodium Potassium Chloride Carbon Dioxide Anion Gap BUN Creatinine Creat Clearance w eGFR POC Glucometer 147 212 221 Random Glucose Calcium Total Bilirubin AST ALT Alkaline Phosphatase Total Protein Albumin 08/17/16 08/17/16 05:54 06:10 Sodium 132 L Potassium 4.6 Chloride 90 L Carbon Dioxide 29 Anion Gap 13 BUN 60 H D Creatinine 11.9 H* Creat Clearance w eGFR 4.45 POC Glucometer 80 Random Glucose 59 L D Calcium 8.5 Total Bilirubin 0.4 D AST 20 ALT 19 D Alkaline Phosphatase 134 H Total Protein 7.2 Albumin 2.1 L Active Medications Generic Name Dose Route Start Last Admin Trade Name Freq PRN Reason Stop Dose Admin Acetaminophen 650 mg 08/10/16 16:51 08/15/16 16:19 Tylenol - PO 650 mg Q4H PRN Administration FEVER OR PAIN Acetaminophen 650 mg 08/11/16 15:11 08/14/16 07:05 Tylenol - PO 650 mg Q4H PRN Administration Calcium Acetate 667 mg 08/10/16 17:30 08/17/16 08:23 Phoslo - PO 667 mg TIDCM MONIK Administration Clopidogrel Bisulfate 75 mg 08/11/16 10:00 08/16/16 10:15 Plavix - PO 75 mg DAILY MONIK Administration Collagenase 1 applic 08/11/16 10:00 08/16/16 12:06 Santyl - TP 1 applic DAILY MONIK Administration Epoetin Alexander 10,000 unit 08/17/16 14:14 Procrit - SQ 08/17/16 14:15 ONCE ONE Heparin Sodium (Porcine) 5,000 unit 08/10/16 22:00 08/17/16 05:56 Heparin - SQ 5,000 unit TID MONIK Administration Piperacillin Sod/Tazobactam Sod 50 mls @ 100 mls/hr 08/11/16 18:00 08/17/16 01: 23 Zosyn 2.25gm Ivpb (Pre-Docked) IVPB 100 mls/hr Q8H-IV MONIK Administration Protocol Insulin Aspart 1 vial 08/10/16 22:00 08/17/16 06:10 Novolog Vial Sliding Scale - SQ Not Given ACHS [facility] Protocol Insulin Detemir 6 units 08/10/16 22:00 08/16/16 21:33 Levemir Vial SQ 6 units HS MONIK Administration Methylnaltrexone [place] 8 mg 08/15/16 15:00 08/16/16 10:21 Relistor - SQ 8 mg DAILY MONIK Administration Minoxidil 10 mg 08/11/16 10:00 08/16/16 10:19 Loniten - PO 10 mg DAILY MONIK Administration Ondansetron HCl 8 mg 08/12/16 14:07 08/13/16 15:52 Zofran Odt - SL 8 mg Q6H PRN Administration NAUSEA AND/OR VOMITING Senna/Docusate Sodium 1 tablet 08/13/16 13:15 08/16/16 21:26 Pericolace - PO 1 tablet BID MONIK Administration Torsemide 20 mg 08/11/16 06:00 08/17/16 05:52 Demadex - PO 20 mg BIDLASIX MONIK Administration Microbiology ASSESSMENT/PLAN: 55 year old male with PMH of DM, ESRD on HD, HTN, osteomyelitis of the 4th and 5th digit on right foot requiring amputation on 08/10 presenting to the ED with pain and foul odor. 1. 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 Almanzar -ID and podiatry on board -Requires abx for 6 weeks 2. Constipation - Possibly opiate induced - 1 BM with relistor Plan: -Continue stool softeners PRN 3. ESRD on HD -Currently on /Tue/Tuesday regimen Plan: -HD today -Continue home regimen -Nephrology on board: Sarah Salmeron 4. Normocytic anemia -Hgb is stable -Likely due to CKD Plan: -Continue Procrit 10,000 units SQ -Consult: Sarah Salmeron 5. HTN -Controlled Plan: -Continue Minoxidil 10 mg PO daily and Torsemide 20 mg PO BID 6. DM -stable Plan: -Continue ISS and BGM ACHS 7. DVT Prophylaxis Plan: -Heparin SQ 5000 units TID Dispo: As per [facility] "new d/c plan- home with [facility], referral made, f2f attached in referral, he will attend [facility] as outpatient, will give prescription to patient, and he will receive iv abx with HD at [facility], sending the prescription to them (# [phone], fax [phone])" Visit type - Emergency Visit Emergency Visit: No - New Patient This patient is new to me today: No - Critical Care Critical Care patient: No
[2016-08-17 10:18] LABS: BASOPHIL 0.5 % (0-2.0); EOSINOPHIL 2.7 % (0-4.5); MCH 26.9 pg (25.7-33.7); MCHC 32.3 g/dl (32.0-35.9); MEAN CELL VOLUME 83.1 fl (80-96); NEUTROPHILS 72.2 % (42.8-82.8); PLATELET COUNT 268 K/MM3 (134-434); RDW 16.3 % (11.9-15.9)
[2016-08-17] MEDS ORDERED: EPOETIN ALFA 10,000 UNIT/1 ML VIAL IVPUSH ONE (12:00)
[2016-08-17] MEDS ORDERED: PT OWN MED DRAWER 7, Y5N ONE ×3 (13:52→17:54)
[2016-08-17] MEDS: ACETAMINOPHEN 325 MG TABLET (FP) PO PRN (14:00)
[2016-08-17] MEDS: CLOPIDOGREL BISULFATE 75 MG TABLET (FP) PO SCH (14:01)
[2016-08-17] MEDS: SENNOSIDES/DOCUSATE COMBO (SENNA PLUS) TABLET (UD) PO SCH ×2 (14:01→22:00)
[2016-08-17 15:30] LABS: BASOPHIL 0.7 % (0-2.0); EOSINOPHIL 3.1 % (0-4.5); MCH 27.4 pg (25.7-33.7); MCHC 32.4 g/dl (32.0-35.9); MEAN CELL VOLUME 84.6 fl (80-96); MEAN PLT VOLUME 7.5 fl (7.5-11.1); NEUTROPHILS 72.3 % (42.8-82.8); PLATELET COUNT 273 K/MM3 (134-434); RDW 15.9 % (11.9-15.9); WHITE BLOOD COUNT 12.7 K/mm3 (4.0-10.0)
[2016-08-17] MEDS ORDERED: VANCOMYCIN 1 GRAM (PRE-DOCKED) 1,000 MG/250 ML BAG IVPB ONE (15:51)
[2016-08-17] MEDS: MINOXIDIL 10 MG TABLET PO SCH (15:54)
[2016-08-17] MEDS: Methylnaltrexone Bromide 12 MG/0.6 ML KIT SQ SCH (15:54)
[2016-08-17] MEDS: COLLAGENASE CLOSTRIDIUM HIST. 30 GRAMS TUBE TP SCH (17:20)
[2016-08-17] MEDS ORDERED: INSULIN (NOVOLOG) ASPART 100 UNITS/ML 10ML VIAL ONE (20:43)
[2016-08-17] MEDS: INSULIN DETEMIR 100 UNITS/ML MDV SQ SCH (22:00)
[2016-08-18] MEDS: PIPERACILLIN/TAZOB 2.25 GM 50 ML IVPB SCH (01:39)
[2016-08-18] MEDS: TORSEMIDE 20 MG TABLET (FP) PO SCH ×2 (05:49→15:04)
[2016-08-18] MEDS: ACETAMINOPHEN 325 MG TABLET (FP) PO PRN ×2 (05:52→10:27)
[2016-08-18] MEDS: INSULIN SLIDING SCALE (NOVOLOG) 1 VIAL SQ SCH ×4 (06:14→21:56)
[2016-08-18] MEDS: CALCIUM ACETATE 667 MG CAPSULE (FP) PO SCH ×3 (08:24→17:48)
--- NOTE | 2016-08-18 09:47 | PN ---
Progress Note (short form) - Note Progress Note: plan for d/c home with VNS and HBO outpt treatment antibiotics being arranged with HD He is depressed +BM Vital Signs Period Temp Pulse Resp BP Sys/Salas Pulse Ox Last 24 Hr 98.7 F-99.0 F 67-83 16-18 123-156/56-80 96 cor-rrr lungs clear abd soft,nt ext wound has an opening no drainage, no erythema or purulence, +dusky CBC, BMP 08/17/16 14:30 08/17/16 06:10 Microbiology 08/10/16 15:20 Tissue-Other Gram Stain - Final 08/10/16 15:20 Tissue-Other Tissue Culture - Final Proteus Mirabilis Pseudomonas Aeruginosa Staphylococcus Coagulase Neg 08/10/16 15:20 Tissue-Other Anaerobic Culture - Final NO ANAEROBES WERE ISOLATED 08/09/16 08:20 Wound Gram Stain - Final 08/09/16 08:20 Wound Wound Culture - Final Pseudomonas Aeruginosa Proteus Mirabilis Klebsiella Pneumoniae a/p diabetic foot infection osteomyelitis esrd/hd s/p TMA for podiatry f/u would favor continuing iv antibiotics vanco with HD and fortaz 2 grams with HD and po flagyl WBC trending down plan 6 weeks iv antibiotics- vns and HBO to start soon d/w Dr Connolly on 08/16- will likely require further stump debridement at a later date patient aware he is at risk for further limb loss and possible BKA in the future will require close f/u in wound care d/w hospitalist service d/w Dr Connolly today- he will take patient to OR in am for debridement
[2016-08-18] MEDS ORDERED: cefTAZidime PENTAHYDRATE 1 GM/50ML PRE-DOCKED (RESTRICTED TO ID) IVPB SCH (10:00)
[2016-08-18] MEDS ORDERED: PT OWN MED DRAWER 7, Y5N ONE ×2 (10:11→10:15)
[2016-08-18] MEDS: Methylnaltrexone Bromide 12 MG/0.6 ML KIT SQ SCH (10:12)
[2016-08-18] MEDS ORDERED: CEFTAZIDIME PENTAHYDRATE 1 GM in DEXTROSE 5%-WATER - 50 ML IVPB SCH (10:15)
[2016-08-18] MEDS: COLLAGENASE CLOSTRIDIUM HIST. 30 GRAMS TUBE TP SCH (10:15)
[2016-08-18] MEDS: SENNOSIDES/DOCUSATE COMBO (SENNA PLUS) TABLET (UD) PO SCH ×2 (10:18→21:54)
[2016-08-18] MEDS: MINOXIDIL 10 MG TABLET PO SCH (10:18)
[2016-08-18] MEDS: metroNIDAZOLE 250 MG TABLET PO SCH ×3 (10:19→21:54)
[2016-08-18] MEDS: CLOPIDOGREL BISULFATE 75 MG TABLET (FP) PO SCH (10:19)
--- NOTE | 2016-08-18 11:23 | PN ---
Progress Note (short form) - Note Progress Note: Podiatry Brief Note: 55 year old IDDM, PVD M s/p R foot trans-metatarsal amputation after revascularization RLE. Patient exhibiting stump necrosis plantar flap. Unfortunately, it is non-viable and needs to be debridement. I have discussed risks, benefits, alternatives to surgery with the patient in depth. At this point, there is option of stump debridement and healing by secondary intention vs. BKA. Patient wants to save his foot among all options. Hopefully, he will heal well with secondary intention. NPO at midnight for stump debridement tomorrow am. Mel Almanzar DPM
--- NOTE | 2016-08-18 12:05 | PN ---
Progress Note (short form) - Note Progress Note: Vascular Surgery S/P TMA right foot. There is flap necrosis of the stump. Will need revision kinza. Spoke to pt about all options. Also offered BKA. Will do case with podiatry kinza morning. Pt does not want bka Lee Araiza DO
--- NOTE | 2016-08-18 12:16 | PN ---
Teaching Attending Note Name of Resident: Jimbo Beckford ATTENDING PHYSICIAN STATEMENT I saw and evaluated the patient. I reviewed the resident's note and discussed the case with the resident. I agree with the resident's findings and plan as documented. SUBJECTIVE:asymptomatic. small BM yeseterday. denies CP, SOB,fever, N/V/D OBJECTIVE: Last Vital Signs Temp Pulse Resp BP Pulse Ox 98.7 F 83 16 149/72 92 L 08/18/16 08:41 08/18/16 08:41 08/18/16 08:41 08/18/16 08:41 08/18/16 09:00 General NAD Extremities top of R foot is necrotic, +dehisced wound with boggy appearance, some white drainage from top of foot. area mildly tender ASSESSMENT AND PLAN: 55yo M wtih PMH DM, ESRD on HD, HTN and recent OM of the R foot 4th and 5th digit with amputation last month and currently on Vanco treatment presented to the ER with intractable pain and foul odor 1. Dry gangrene of the R forefoot- s/p transmetatarsal amputation 08/10. foot appears necrotic and not salvageable. spoke with vasc surgery, NPO tonight for flap revision tomorrow. will monitor for a few days to see if improved prior to discharge. will cont zosyn day 8 and Vanco with HD. HBO is being set up as outpatient by Dr Araiza 2. constipation- possible opiate induced.improved. cont stool softeners 3. ESRD on HD-cont HD per normal schedule. Nephro on board 4. Normocytic anemia- hemoconcentrated on admission likely. now at Hgb baseline. no signs of active bleeding. Hgb stable. procrit weekly 5. HTn- controlled 6. DM- controlled.cont home medications. iss, bgm 7. DVT ppx- hep sq 8. pt is adamant against d/c planning to [facility], wants to go home. abx selection to be done with HD
--- NOTE | 2016-08-18 12:22 | PN ---
Progress Note (short form) - Note Progress Note: Renal Follow up for ESRD on HD Pt seen and examined at the bedside no acute complaints s/p dialysis yesterday w/o any adverse events scheduled for the OR tomorrow Vital Signs Temperature 98.7 F 08/18/16 08:41 Pulse Rate 83 08/18/16 08:41 Respiratory Rate 16 08/18/16 08:41 Blood Pressure 149/72 08/18/16 08:41 O2 Sat by Pulse Oximetry (%) 92 L 08/18/16 09:00 Intake & Output 08/15/16 08/16/16 08/17/16 08/18/16 23:59 23:59 23:59 23:59 Intake Total 750 300 600 450 Balance 750 300 600 450 Weight 198 lb 6 oz 205 lb 2 oz Gen: NAD, awake and alert CVS: RRR, no M/R Lungs: CTA Abd: soft NT/ND Ext: Right TMA in dressing CBC, BMP 08/17/16 14:30 08/17/16 06:10 Laboratory Tests 08/17/16 06:10 Calcium 8.5 Albumin 2.1 L Current Medications Acetaminophen (Tylenol -) 650 mg PO Q4H PRN PRN Reason: FEVER OR PAIN Last Admin: 08/18/16 10:27 Dose: 650 mg Acetaminophen (Tylenol -) 650 mg PO Q4H PRN Last Admin: 08/14/16 07:05 Dose: 650 mg Calcium Acetate (Phoslo -) 667 mg PO TIDCM [facility] Last Admin: 08/18/16 08:24 Dose: 667 mg Clopidogrel Bisulfate (Plavix -) 75 mg PO DAILY [facility] Last Admin: 08/18/16 10:19 Dose: 75 mg Collagenase (Santyl -) 1 applic TP DAILY [facility] Last Admin: 08/18/16 10:15 Dose: Not Given Ceftazidime 1 gm/ Dextrose 50 mls @ 100 mls/hr IVPB DAILY [facility] Last Admin: 08/18/16 11:39 Dose: 100 mls/hr Insulin Aspart (Novolog Vial Sliding Scale -) 1 vial SQ ACHS [facility] PRN Reason: Protocol Last Admin: 08/18/16 11:43 Dose: Not Given Insulin Detemir (Levemir Vial) 6 units SQ HS [facility] Last Admin: 08/17/16 22:00 Dose: 6 units Methylnaltrexone [place] (Relistor -) 8 mg SQ DAILY [facility] Last Admin: 08/18/16 10:12 Dose: Not Given Metronidazole (Flagyl -) 500 mg PO TID [facility] Last Admin: 08/18/16 10:19 Dose: 500 mg Minoxidil (Loniten -) 10 mg PO DAILY [facility] Last Admin: 08/18/16 10:18 Dose: 10 mg Ondansetron HCl (Zofran Odt -) 8 mg SL Q6H PRN PRN Reason: NAUSEA AND/OR VOMITING Last Admin: 08/13/16 15:52 Dose: 8 mg Polyethylene Glycol (Miralax (For Daily Use) -) 17 gm PO DAILY [facility] Senna/Docusate Sodium (Pericolace -) 1 tablet PO BID [facility] Last Admin: 08/18/16 10:18 Dose: 1 tablet Torsemide (Demadex -) 20 mg PO BIDLASIX [facility] Last Admin: 08/18/16 05:49 Dose: 20 mg A/P 55 year old Gentleman with PMhx of ESRD on HD (TTS), Hypertension, PVD, DM who presented with non-healing food wound and persistent ischemia of distal digits #ESRD on Hd s/p dialysis yesterday, no acute indication for treatment today next dialysis is planned for tomorrow Dose all meds for intermittent HD Continue diuretics #LE wound/Ischemia Management as per vascular Sx and Podiatry #Anemia of CKD Continue Epogen with HD Thank you Cm Torres DO
[2016-08-18] MEDS ORDERED: POLYETHYLENE GLYCOL 3350 119 GM BTL PO SCH (12:45)
--- NOTE | 2016-08-18 16:07 | PN ---
Physical Exam: SUBJECTIVE: Patient seen and examined No acute events overnight. Patient has no symptoms this morning. Denies any chest pain, shortness of breath, nausea, vomiting, diarrhea, constipation. OBJECTIVE: Vital Signs Period Temp Pulse Resp BP Sys/Salas Pulse Ox Last 24 Hr 98.7 F-98.9 F 74-83 16-18 138-149/56-80 92-96 GENERAL: The patient is awake, alert, and fully oriented, in no acute distress. HEAD: Normal with no signs of trauma. EYES: extraocular movements intact, sclera anicteric, conjunctiva clear. ENT: oropharynx clear without exudates, moist mucous membranes. NECK: Trachea midline, full range of motion. LUNGS: Breath sounds equal, clear to auscultation bilaterally, no wheezes, no crackles, no accessory muscle use. HEART: Regular rate and rhythm, S1, S2 without murmur, rub or gallop. ABDOMEN: Soft, nontender, nondistended, normoactive bowel sounds, no guarding, no rebound, no hepatosplenomegaly, no masses. EXTREMITIES: RLE: Area surrounding suture is boggy and necrotic with drainage. LLE: 2+ pulses, skin intact, no edema NEUROLOGICAL:Normal speech, gait not observed. PSYCH: Normal mood, normal affect. Laboratory Results - last 24 hr 08/17/16 08/17/16 08/18/16 17:25 21:55 05:42 POC Glucometer 150 265 99 08/18/16 11:38 POC Glucometer 147 Active Medications Generic Name Dose Route Start Last Admin Trade Name Freq PRN Reason Stop Dose Admin Acetaminophen 650 mg 08/10/16 16:51 08/18/16 10:27 Tylenol - PO 650 mg Q4H PRN Administration FEVER OR PAIN Acetaminophen 650 mg 08/11/16 15:11 08/14/16 07:05 Tylenol - PO 650 mg Q4H PRN Administration Calcium Acetate 667 mg 08/10/16 17:30 08/18/16 12:48 Phoslo - PO 667 mg TIDCM MONIK Administration Clopidogrel Bisulfate 75 mg 08/11/16 10:00 08/18/16 10:19 Plavix - PO 75 mg DAILY MONIK Administration Collagenase 1 applic 08/11/16 10:00 08/18/16 10:15 Santyl - TP Not Given DAILY MONIK Epoetin Alexander 10,000 unit 08/19/16 08:00 Procrit - IVPUSH 08/19/16 08:01 ONCE ONE Ceftazidime 1 gm/ Dextrose 50 mls @ 100 mls/hr 08/18/16 10:15 08/18/16 11:39 IVPB 100 mls/hr DAILY MONIK Administration Vancomycin HCl 1,000 mg/ 250 mls @ 250 mls/hr 08/19/16 08:00 Dextrose IVPB 08/19/16 08:59 ONCE ONE Protocol Insulin Aspart 1 vial 08/10/16 22:00 08/18/16 11:43 Novolog Vial Sliding Scale - SQ Not Given ACHS MONIK Protocol Insulin Detemir 6 units 08/10/16 22:00 08/17/16 22:00 Levemir Vial SQ 6 units HS MONIK Administration Methylnaltrexone [place] 8 mg 08/15/16 15:00 08/18/16 10:12 Relistor - SQ Not Given DAILY MONIK Metronidazole 500 mg 08/18/16 10:00 08/18/16 15:04 Flagyl - PO 500 mg TID MONIK Administration Minoxidil 10 mg 08/11/16 10:00 08/18/16 10:18 Loniten - PO 10 mg DAILY MONIK Administration Ondansetron HCl 8 mg 08/12/16 14:07 08/13/16 15:52 Zofran Odt - SL 8 mg Q6H PRN Administration NAUSEA AND/OR VOMITING Polyethylene Glycol 17 gm 08/18/16 12:45 08/18/16 12:48 Miralax (For Daily Use) - PO 17 gm DAILY MONIK Administration Senna/Docusate Sodium 1 tablet 08/13/16 13:15 08/18/16 10:18 Pericolace - PO 1 tablet BID MONIK Administration Torsemide 20 mg 08/11/16 06:00 08/18/16 15:04 Demadex - PO 20 mg BIDLASIX MONIK Administration ASSESSMENT/PLAN: 55 year old male with PMH of DM, ESRD on HD, HTN, osteomyelitis of the 4th and 5th digit on right foot requiring amputation on 08/10 presenting to the ED with pain and foul odor. 1. Dry gangrene of the right forefoot -History of osteomyelitis of 4th and 5th digit on right foot -s/p transmetatarsal amputation on 08/10 -Tissue culture grew proteus mirabilis, pseudomonas aeruginosa, and staphylococcus coagulase negative -Wound culture grew Pseudomonas Aeruginosa, Proteus Mirabilis, Klebsiella Pneumoniae -Wound appears necrotic and boggy -Vascular surgery came to evaluate and plans on performing revision with podiatry tomorrow -BKA discussed with patient, but pt does not want at this time. -Leukocytosis trending down. 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 Almanzar -Requires abx for 6 weeks -Keep NPO tonight for revision tomorrow by Dr. Araiza and Dr. Almanzar -Patient will remain in hospital to monitor post operative 2. Constipation - Possibly opiate induced - 1 BM with relistor - improved Plan: -Continue pericolace 1 tablet BID PRN -Continue relistor 8mg SQ Daily 3. ESRD on HD -Currently on /Tue/Tuesday regimen Plan: -HD tomorrow before or after flap revision -Will get vancomycin 1g IV with HD -Continue home regimen -Nephrology on board: Sarah Salmeron 4. Normocytic anemia -Hgb is stable -Likely due to CKD Plan: -Continue Procrit 10,000 units SQ weekly -Consult: Sarah Salmeron 5. HTN -Controlled Plan: -Continue Minoxidil 10 mg PO daily and Torsemide 20 mg PO BID 6. DM -stable Plan: -Continue ISS and BGM ACHS 7. DVT Prophylaxis Plan: -Heparin SQ 5000 units TID Dispo: Patient is staying for flap revision on 08/19. Will be monitored for a few days post op and will be determined when he can be discharged Visit type - Emergency Visit Emergency Visit: No - New Patient This patient is new to me today: No - Critical Care Critical Care patient: No
[2016-08-18] MEDS: INSULIN DETEMIR 100 UNITS/ML MDV SQ SCH (21:54)
[2016-08-19] MEDS: TORSEMIDE 20 MG TABLET (FP) PO SCH ×2 (07:07→14:35)
[2016-08-19] MEDS: INSULIN SLIDING SCALE (NOVOLOG) 1 VIAL SQ SCH ×4 (07:07→21:46)
[2016-08-19] MEDS: metroNIDAZOLE 250 MG TABLET PO SCH ×3 (07:08→21:39)
[2016-08-19] MEDS ORDERED: MINOXIDIL 10 MG TABLET PO ONE ×2 (07:09→09:12)
[2016-08-19] MEDS ORDERED: LIDOCAINE HCL 2% (20ML MULTI-DOSE VIAL) NR ONE (07:23)
--- NOTE | 2016-08-19 07:29 | PN ---
Progress Note (short form) - Note Progress Note: Podiatry Pre-op Note: Risks, benefits, alternatives discussed in length with patient. Namely, risk of limb loss, worsening ischemia due to micro/macrovascular disease, infection, bacteremia. Particularly, I discussed risk of an open post-surgical wound due to tissue loss. Patient understands all risks and benefits and wishes to proceed with planned procedure. Informed consent obtained. Plan for R foot debridement/lavage in OR. Mel Almanzar DPM
[2016-08-19] MEDS ORDERED: ceFAZolin SODIUM 1 GM VIAL IVPB ONE (07:45)
[2016-08-19] MEDS ORDERED: LIDOCAINE HCL 2% (50ML VIAL) INF ONE (07:50)
[2016-08-19] MEDS ORDERED: VANCOMYCIN 1,000 MG in DEXTROSE 5%-WATER - 250 ML IVPB ONE ×2 (08:00→11:00)
[2016-08-19] MEDS ORDERED: EPOETIN ALFA 10,000 UNIT/1 ML VIAL IVPUSH ONE ×2 (08:00→11:00)
[2016-08-19 08:31] LABS: INR 1.27 (0.82-1.09)
--- NOTE | 2016-08-19 08:40 | OP ---
Operative Note - Note: Operative Date: 08/19/16 Pre-Operative Diagnosis: R foot gangrene with stump necrosis Operation: R foot debridement and lavage Findings: Stump necrosis plantar flap and dorsal periphery of surgical site. Bleeding cancellous bone at stump and underlying tissue with granular bleeding tissue. Post-Operative Diagnosis: Same as Pre-op Surgeon: Vazquez Almanzar Cement Mixer: Lee Araiza Anesthesia: Local, MAC Specimens Removed: Bone and soft tissue right foot Estimated Blood Loss (mls): 50 Instrument used (Debridements only): #15 blade scalpel and sterile scissors
[2016-08-19] MEDS ORDERED: ONDANSETRON 4 MG/2 ML VIAL IVPUSH PRN (08:42)
[2016-08-19] MEDS ORDERED: SODIUM CHLORIDE 1,000 ML IV SCH (08:45)
[2016-08-19] MEDS ORDERED: ONDANSETRON *ODT* 4 MG TABLET SL PRN (09:12)
[2016-08-19] MEDS ORDERED: ACETAMINOPHEN 325 MG TABLET (FP) PO PRN (09:12)
--- NOTE | 2016-08-19 09:39 | OP ---
DATE OF OPERATION: 08/19/2016 PREOPERATIVE DIAGNOSIS: Right stump gangrene necrosis. POSTOPERATIVE DIAGNOSIS: Right stump gangrene necrosis. PROCEDURE: Right foot debridement and lavage with debridement of bone. SURGEON: Vazquez Almanzar DPM POLISHER EYEGLASS FRAMES: Dr. Araiza ANESTHESIA: Local with IV sedation. HEMOSTASIS: Dissection. ESTIMATED BLOOD LOSS: 50 mL. COMPLICATIONS: None. DESCRIPTION OF PROCEDURE: The patient was brought to the operating room and placed on the operating table in the supine position. I elected to not use a tourniquet during the course of the procedure. Following the induction of IV sedation, local anesthesia was achieved utilizing 20 mL of 2% lidocaine plain in an ankle block fashion. The right foot was then scrubbed, prepped, and draped in the usual aseptic fashion. I directed my attention to the right foot, where there was a transmetatarsal stump with necrosis of the plantar flap and the dorsal periphery of the surgical site. I began by performing an incisional debridement of skin and subcutaneous tissue along the plantar flap in all areas of necrosis. All necrotic tissue was subsequently removed. Underlying the necrotic tissue, there was some liquefactive tissue in the subcutaneous tissues which was subsequently excisionally debrided utilizing a 15 blade scalpel and sterile scissors. Once there was granular bleeding tissue noted I directed my attention to the cuneiform joint bones, which were exposed from prior surgery. The articular surface was debrided using a combination of osteotome and rongeur until there was bleeding cancellous bone noted. Of note, there was excellent bleeding noted to the cancellous bone remaining in the wound. At this point, due to soft tissue loss, I elected to leave the amputation stump open in lieu of viable vascular tissue present. Once all bone was debrided, the surgical site was copiously irrigated with sterile saline mixed with bacitracin in a pulse lavage fashion. The surgical site was packed open with 0.5-inch Iodoform packing, and the surgical site was covered with Xeroform gauze. Following the conclusion of the procedure, the surgical site was covered and a dressing applied consisting of sterile 4 x 4 gauze, Chris, abdominal pad, Kerlix, and Irvin wrap. The patient tolerated the procedure and anesthesia well without complications. He was transferred from the operating room to the recovery unit with vital signs stable and neurovasculature intact to the right foot. KARI DUKE/[id number] cc: [facility]
[2016-08-19 10:32] LABS: MCH 27.6 pg (25.7-33.7); MCHC 32.7 g/dl (32.0-35.9); MEAN CELL VOLUME 84.5 fl (80-96); MEAN PLT VOLUME 7.3 fl (7.5-11.1); PLATELET COUNT 244 K/MM3 (134-434); RDW 17.2 % (11.9-15.9); WHITE BLOOD COUNT 10.6 K/mm3 (4.0-10.0)
[2016-08-19 10:56] LABS: ANION GAP 12 (8-16); CALCIUM 8.5 mg/dL (8.5-10.1); CO2 28 mmol/L (21-32); GLUCOSE,RANDOM 98 mg/dL (74-106); PHOSPHOROUS 5.1 mg/dL (2.5-4.9)
--- NOTE | 2016-08-19 11:50 | PN ---
Progress Note (short form) - Note Progress Note: Renal Follow up for ESRD on HD Pt seen and examined during dialysis BP 170/90, UF goal is 3L AVF with good flow s/p OR this am for debridement of the foot wound pt without any acute complaints Vital Signs Temperature 99 F 08/19/16 09:35 Pulse Rate 78 08/19/16 11:35 Respiratory Rate 18 08/19/16 11:35 Blood Pressure 186/92 08/19/16 11:35 O2 Sat by Pulse Oximetry (%) 100 08/19/16 09:35 Intake & Output 08/16/16 08/17/16 08/18/16 08/19/16 23:59 23:59 23:59 23:59 Intake Total 300 600 700 200 Output Total 50 Balance 300 600 700 150 Weight 198 lb 6 oz 205 lb 2 oz Gen: NAD, awake and alert CVS: RRR, no M/R Lungs: CTA Abd: soft NT/ND Ext: Right TMA in dressing CBC, BMP 08/19/16 09:45 08/19/16 09:45 Current Medications Acetaminophen (Tylenol -) 650 mg PO Q4H PRN PRN Reason: FEVER OR PAIN Calcium Acetate (Phoslo -) 667 mg PO TIDCM MONIK Clopidogrel Bisulfate (Plavix -) 75 mg PO DAILY [facility] Collagenase (Santyl -) 1 applic TP DAILY [facility] Sodium Chloride (Normal Saline -) 1,000 mls @ 125 mls/hr IV ASDIR MONIK Ceftazidime 1 gm/ Dextrose 50 mls @ 100 mls/hr IVPB DAILY [facility] Vancomycin HCl 1,000 mg/ (Dextrose) 250 mls @ 166.667 mls/hr IVPB ONCE ONE PRN Reason: Protocol Stop: 08/19/16 12:29 Insulin Aspart (Novolog Vial Sliding Scale -) 1 vial SQ ACHS [facility] PRN Reason: Protocol Insulin Detemir (Levemir Vial) 6 units SQ HS [facility] Methylnaltrexone [place] (Relistor -) 8 mg SQ DAILY [facility] Metronidazole (Flagyl -) 500 mg PO TID [facility] Minoxidil (Loniten -) 10 mg PO DAILY [facility] Ondansetron HCl (Zofran Injection) 4 mg IVPUSH Q6H PRN PRN Reason: NAUSEA AND/OR VOMITING Stop: 08/19/16 14:43 Ondansetron HCl (Zofran Odt -) 8 mg SL Q6H PRN PRN Reason: NAUSEA AND/OR VOMITING Polyethylene Glycol (Miralax (For Daily Use) -) 17 gm PO DAILY [facility] Senna/Docusate Sodium (Pericolace -) 1 tablet PO BID [facility] Torsemide (Demadex -) 20 mg PO BIDLASIX MONIK A/P 55 year old Gentleman with PMhx of ESRD on HD (TTS), Hypertension, PVD, DM who presented with non-healing food wound and persistent ischemia of distal digits #ESRD on Hd tolerating dialysis well UF goal is 3L dose all meds for intermittent HD #LE wound/Ischemia Management as per vascular Sx and Podiatry s/p further debridement this am Vanco level is 17, will give Vanco 500mg IV with HD #Anemia of CKD Continue Epogen with HD no acute indication for transfusion Thank you Cm Torres DO
[2016-08-19 11:53] LABS: CREATININE 10.4 mg/dL (0.7-1.3)
[2016-08-19] MEDS ORDERED: VANCOMYCIN 500 MG/100 ML PRE-DOCKED IVPB ONE (12:30)
[2016-08-19] MEDS ORDERED: VANCOMYCIN 500 MG in DEXTROSE 5%-WATER - 100 ML IVPB ONE (12:30)
--- NOTE | 2016-08-19 13:05 | PN ---
Progress Note (short form) - Note Progress Note: Anesthesia Post op Pt seen and examined in dialysis sleeping S; O; Vital Signs Temperature 99 F 08/19/16 09:35 Pulse Rate 69 08/19/16 12:35 Respiratory Rate 18 08/19/16 12:35 Blood Pressure 161/87 08/19/16 12:35 O2 Sat by Pulse Oximetry (%) 100 08/19/16 09:35 CBC, BMP 08/19/16 09:45 08/19/16 09:45 A/P: Current Active Problems Gangrene of toe of right foot (Acute) Wound with infection determined by examination (Acute) s/p I&D right foot No apparent anesthesia related complications post op Continue current care Erik Gonzalez MD
[2016-08-19] MEDS: SENNOSIDES/DOCUSATE COMBO (SENNA PLUS) TABLET (UD) PO SCH ×2 (13:33→21:39)
[2016-08-19] MEDS: POLYETHYLENE GLYCOL 3350 119 GM BTL PO SCH (13:33)
[2016-08-19] MEDS: MINOXIDIL 10 MG TABLET PO SCH (13:33)
[2016-08-19] MEDS: ACETAMINOPHEN 325 MG TABLET (FP) PO PRN ×3 (13:34→21:41)
[2016-08-19] MEDS: CALCIUM ACETATE 667 MG CAPSULE (FP) PO SCH ×2 (13:34→18:11)
[2016-08-19] MEDS: CLOPIDOGREL BISULFATE 75 MG TABLET (FP) PO SCH (13:34)
[2016-08-19] MEDS: COLLAGENASE CLOSTRIDIUM HIST. 30 GRAMS TUBE TP SCH (13:36)
[2016-08-19] MEDS: CEFTAZIDIME PENTAHYDRATE 1 GM in DEXTROSE 5%-WATER - 50 ML IVPB SCH (14:36)
[2016-08-19] MEDS: Methylnaltrexone Bromide 12 MG/0.6 ML KIT SQ SCH (14:37)
--- NOTE | 2016-08-19 14:40 | PN ---
Physical Exam: SUBJECTIVE: Patient seen and examined No acute events overnight. Patient mentioned a 2 day history of a mildly enlarged right breast lesion that has been tender. No other complaints. Had 1 BM yesterday OBJECTIVE: Vital Signs Period Temp Pulse Resp BP Sys/Salas Pulse Ox Last 24 Hr 98.1 F-99.1 F 67-86 16-18 135-186/61-92 92-100 GENERAL: The patient is awake, alert, and fully oriented, in no acute distress. HEAD: Normal with no signs of trauma. EYES: extraocular movements intact, sclera anicteric, conjunctiva clear. ENT: oropharynx clear without exudates, moist mucous membranes. NECK: Trachea midline, full range of motion. LUNGS: Breath sounds equal, clear to auscultation bilaterally, no wheezes, no crackles, no accessory muscle use. HEART: Regular rate and rhythm, S1, S2 without murmur, rub or gallop. ABDOMEN: Soft, nontender, nondistended, normoactive bowel sounds, no guarding, no rebound, no hepatosplenomegaly, no masses. EXTREMITIES: RLE: Area wrapped with minimal drainage LLE: 2+ pulses, skin intact, no edema Skin: Right breast lesion 1-2 cm in diameter, soft, mobile, nontender to palpation NEUROLOGICAL:Normal speech, gait not observed. PSYCH: Normal mood, normal affect. Laboratory Results - last 24 hr 08/18/16 08/18/16 08/19/16 16:46 21:49 05:40 WBC RBC Hgb Hct MCV MCHC RDW Plt Count MPV INR Sodium Potassium Chloride Carbon Dioxide Anion Gap BUN Creatinine POC Glucometer 201 192 114 Random Glucose Calcium Phosphorus Random Vancomycin 08/19/16 08/19/16 08/19/16 06:00 06:00 09:45 WBC RBC Hgb Hct MCV MCHC RDW Plt Count MPV INR 1.27 H Sodium 134 L Potassium 4.5 Chloride 94 L Carbon Dioxide 28 Anion Gap 12 BUN 49 H Creatinine 10.4 H* POC Glucometer Random Glucose 98 D Calcium 8.5 Phosphorus 5.1 H Random Vancomycin 17.354 08/19/16 09:45 WBC 10.6 H RBC 2.97 L Hgb 8.2 L Hct 25.1 L MCV 84.5 MCHC 32.7 RDW 17.2 H Plt Count 244 MPV 7.3 L INR Sodium Potassium Chloride Carbon Dioxide Anion Gap BUN Creatinine POC Glucometer Random Glucose Calcium Phosphorus Random Vancomycin Active Medications Generic Name Dose Route Start Last Admin Trade Name Freq PRN Reason Stop Dose Admin Acetaminophen 650 mg 08/19/16 09:12 08/19/16 13:34 Tylenol - PO 650 mg Q4H PRN Administration FEVER OR PAIN Calcium Acetate 667 mg 08/19/16 12:00 08/19/16 13:34 Phoslo - PO Not Given TIDCM [facility] Clopidogrel Bisulfate 75 mg 08/19/16 10:00 08/19/16 13:34 Plavix - PO Not Given DAILY [facility] Collagenase 1 applic 08/19/16 10:00 08/19/16 13:36 Santyl - TP Not Given DAILY [facility] Sodium Chloride 1,000 mls @ 125 mls/hr 08/19/16 08:45 Normal Saline - IV ASDIR [facility] Ceftazidime 1 gm/ Dextrose 50 mls @ 100 mls/hr 08/19/16 10:00 IVPB DAILY [facility] Insulin Aspart 1 vial 08/19/16 11:00 08/19/16 13:35 Novolog Vial Sliding Scale - SQ Not Given ACHS [facility] Protocol Insulin Detemir 6 units 08/19/16 22:00 Levemir Vial SQ HS [facility] Methylnaltrexone [place] 8 mg 08/19/16 10:00 Relistor - SQ DAILY [facility] Metronidazole 500 mg 08/19/16 14:00 Flagyl - PO TID [facility] Minoxidil 10 mg 08/19/16 10:00 08/19/16 13:33 Loniten - PO Not Given DAILY [facility] Ondansetron HCl 4 mg 08/19/16 08:42 Zofran Injection IVPUSH 08/19/16 14:43 Q6H PRN NAUSEA AND/OR VOMITING Ondansetron HCl 8 mg 08/19/16 09:12 Zofran Odt - SL Q6H PRN NAUSEA AND/OR VOMITING Polyethylene Glycol 17 gm 08/19/16 10:00 08/19/16 13:33 Miralax (For Daily Use) - PO Not Given DAILY [facility] Senna/Docusate Sodium 1 tablet 08/19/16 10:00 08/19/16 13:33 Pericolace - PO Not Given BID [facility] Torsemide 20 mg 08/19/16 14:00 Demadex - PO BIDLASIX [facility] ASSESSMENT/PLAN: 55 year old male with PMH of DM, ESRD on HD, HTN, osteomyelitis of the 4th and 5th digit on right foot requiring amputation on 08/10 presenting to the ED with pain and foul odor. 1. Dry gangrene of the right forefoot -History of osteomyelitis of 4th and 5th digit on right foot -s/p transmetatarsal amputation on 08/10 -Tissue culture grew proteus mirabilis, pseudomonas aeruginosa, and staphylococcus coagulase negative -Wound culture grew Pseudomonas Aeruginosa, Proteus Mirabilis, Klebsiella Pneumoniae -Wound appears necrotic and boggy -Patient had procedure done at 0730 -BKA discussed with patient, but pt does not want at this time. 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 Almanzar -Requires abx for 6 weeks -Patient will remain in hospital to monitor post operative 2. Right breast lesion -Soft, nontender to palpation, freely mobile -Considering lipoma. Less likely breast cancer Plan: -Continue to monitor for any changes 3. Constipation - Possibly opiate induced - 1 BM with relistor - improved Plan: -Continue pericolace 1 tablet BID PRN -Continue relistor 8mg SQ Daily 4. ESRD on HD -Currently on /Tue/Tuesday regimen Plan: -HD today after flap revision -Will get vancomycin 1g IV and Fortaz 1gm IV with HD -Continue home regimen -Nephrology on board: Sarah Salmeron 4. Normocytic anemia -Hgb is stable -Likely due to CKD Plan: -Continue Procrit 10,000 units SQ weekly -Consult: Sarah Salmeron 5. HTN -Elevated today -Patient was nervous prior to going to OR Plan: -Continue Minoxidil 10 mg PO daily and Torsemide 20 mg PO BID -Will reassess post op 6. DM -stable Plan: -Continue ISS and BGM ACHS 7. DVT Prophylaxis Plan: -Heparin stopped for OR procedure Visit type - Emergency Visit Emergency Visit: No - New Patient This patient is new to me today: No - Critical Care Critical Care patient: No
--- NOTE | 2016-08-19 16:19 | PN ---
Progress Note (short form) - Note Progress Note: he is back from OR s/p debridement of the foot Vital Signs Period Temp Pulse Resp BP Sys/Salas Pulse Ox Last 24 Hr 98.1 F-99.1 F 67-86 16-18 135-186/61-92 92-100 cor-rrr lungs clear abd soft,nt ext foot bandaged CBC, BMP 08/19/16 09:45 08/19/16 09:45 operative cultures pending a/p diabetic foot infection osteomyelitis esrd/hd s/p TMA continue vancomycin with HD continue fortaz and flagyl f/u podiatry
--- NOTE | 2016-08-19 17:40 | PN ---
Teaching Attending Note Name of Resident: Jimbo Beckford ATTENDING PHYSICIAN STATEMENT I saw and evaluated the patient. I reviewed the resident's note and discussed the case with the resident. I agree with the resident's findings and plan as documented. SUBJECTIVE: Patient reports throbbing in his right foot. He also has noted a tender mass in his right breast x 2 days. OBJECTIVE: Vital Signs Period Temp Pulse Resp BP Sys/Salas Pulse Ox Last 24 Hr 98.1 F-99.1 F 67-84 16-18 143-186/63-92 92-100 HEART: S1S2, RRR LUNGS: Clear ABDOMEN: Soft, non-tender, non-distended, normal BS EXTREMITIES: No edema. Right foot wrapped. BREASTS: Mobile, firm, non-tender, plate-like mass in right breast ASSESSMENT AND PLAN: This is a 55-year-old man wtih a history of type 2 DM, ESRD on HD, HTN, osteomyelitis of right 4th and 5th toes s/p with amputation last month and on Vancomycin, who presented to the ER with right foot pain. 1. Gangrene of right forefoot - s/p transmetatarsal amputation 08/10 - s/p debridement and lavage today - Continue Fortaz, Flagyl, Vancomycin 2. Constipation, opiate-induced - Resolved 3. ESRD - Continue HD, PhosLo 4. Anemia secondary to ESRD - Continue Procrit 5. HTN - Continue Minoxidil, Demadex 6. Type 2 DM - Continue Levemir, Novolog sliding scale 7. Right breast mass - US
[2016-08-19] MEDS ORDERED: INSULIN (NOVOLOG) ASPART 100 UNITS/ML 10ML VIAL ONE (20:51)
[2016-08-19] MEDS: INSULIN DETEMIR 100 UNITS/ML MDV SQ SCH (21:48)
[2016-08-20] MEDS: TORSEMIDE 20 MG TABLET (FP) PO SCH ×2 (05:52→13:43)
[2016-08-20] MEDS: ACETAMINOPHEN 325 MG TABLET (FP) PO PRN ×3 (05:52→18:33)
[2016-08-20] MEDS: metroNIDAZOLE 250 MG TABLET PO SCH ×3 (05:52→21:27)
[2016-08-20] MEDS: INSULIN SLIDING SCALE (NOVOLOG) 1 VIAL SQ SCH ×4 (06:05→21:29)
[2016-08-20] MEDS: CALCIUM ACETATE 667 MG CAPSULE (FP) PO SCH ×4 (07:07→18:34)
[2016-08-20 08:03] LABS: BASOPHIL 0.6 % (0-2.0); EOSINOPHIL 2.5 % (0-4.5); MCH 27.1 pg (25.7-33.7); MCHC 32.1 g/dl (32.0-35.9); MEAN CELL VOLUME 84.5 fl (80-96); MEAN PLT VOLUME 7.3 fl (7.5-11.1); NEUTROPHILS 70.1 % (42.8-82.8); RDW 17.1 % (11.9-15.9); WHITE BLOOD COUNT 11.4 K/mm3 (4.0-10.0)
[2016-08-20 08:30] LABS: ANION GAP 9 (8-16); CALCIUM 8.4 mg/dL (8.5-10.1); CO2 33 mmol/L (21-32); GLUCOSE,RANDOM 79 mg/dL (74-106)
[2016-08-20 08:54] LABS: CREATININE 7.6 mg/dL (0.7-1.3)
--- NOTE | 2016-08-20 09:08 | PN ---
Progress Note (short form) - Note Progress Note: Podiatry F/U: Seen and evaluated at bedside NAD. Pain controlled, denies F/V/N/C/SOB/CP. S/ p stump debridement/lavage, bone debridement R foot POD # 1. AFebrile, VSS. ABDIAS: R foot: dressing with mild sanguinous strikethrough, no active bleeding noted. Large stump DM ulcer with exposed midfoot bones, cancellous, healthy bleeding bone noted at cuneiforms. All cartilage resected. Surrounding tissue fibrogranular with no necrosis, no ischemic skin changes, no purulence, no fluctuance, no periwound erythema, no ascending cellulitis, no signs of active infection. Mild tenderness to palpation. WBC: 11.4, improved OR Wound Cx: pending Imp: 55 year old DM, PVD M s/p R stump debridement and bone debridement for gangrenous stump changes 1. We finally have healthy, vitalized tissue at the wound bed. Should progress well with wound VAC. Patient refusing PAZ and needs home nursing services for wound VAC. The patient has a wound VAC at home already, needs new supplies for white foam to cover bone, 125 mmHg continuous, changed every three days. 2. Non-WB R foot. Physical therapy re-evaluation. 3. Pain control. 4. I discussed with patient the road ahead for recovery, which will include VAC therapy, abx therapy per Infectious Disease, eventually will need Plastics consultation for skin vs. muscle flap. 5. Upon discharge, will closely follow. Will see 08/24/16 in Wound care center. 6. No further podiatric surgical intervention. Mel Almanzar DPM
[2016-08-20] MEDS ORDERED: PT OWN MED DRAWER 7, Y5N ONE ×2 (10:24→21:00)
[2016-08-20] MEDS: SENNOSIDES/DOCUSATE COMBO (SENNA PLUS) TABLET (UD) PO SCH ×2 (10:43→21:28)
[2016-08-20] MEDS: CEFTAZIDIME PENTAHYDRATE 1 GM in DEXTROSE 5%-WATER - 50 ML IVPB SCH (10:43)
[2016-08-20] MEDS: MINOXIDIL 10 MG TABLET PO SCH (10:43)
[2016-08-20] MEDS: POLYETHYLENE GLYCOL 3350 119 GM BTL PO SCH (10:44)
[2016-08-20] MEDS: CLOPIDOGREL BISULFATE 75 MG TABLET (FP) PO SCH (10:44)
[2016-08-20] MEDS: COLLAGENASE CLOSTRIDIUM HIST. 30 GRAMS TUBE TP SCH (10:44)
[2016-08-20 10:56] LABS: PLATELET COUNT 200 K/MM3 (134-434); PLATELET ESTIMATE ADEQUATE (NORMAL)
[2016-08-20] MEDS: Methylnaltrexone Bromide 12 MG/0.6 ML KIT SQ SCH (12:03)
--- NOTE | 2016-08-20 12:29 | PN ---
Physical Exam: SUBJECTIVE: Patient seen and examined No acute events overnight. No complaints this morning. OBJECTIVE: Vital Signs Period Temp Pulse Resp BP Sys/Salas Pulse Ox Last 24 Hr 98.1 F-99.1 F 69-84 18-18 140-175/77-87 95 GENERAL: The patient is awake, alert, and fully oriented, in no acute distress. HEAD: Normal with no signs of trauma. EYES: Extraocular movements intact, sclera anicteric, conjunctiva clear. ENT: Oropharynx clear without exudates, moist mucous membranes. NECK: Trachea midline, full range of motion. LUNGS: Breath sounds equal, clear to auscultation bilaterally, no wheezes, no crackles, no accessory muscle use. HEART: Regular rate and rhythm, S1, S2 without murmur, rub or gallop. ABDOMEN: Soft, nontender, nondistended, normoactive bowel sounds, no guarding, no rebound, no hepatosplenomegaly, no masses. EXTREMITIES: RLE: Today the area was wrapped. LLE: 2+ pulses, skin intact, no edema SKIN: Right breast lesion 1-2 cm, soft, mobile, nontender, unchanged from yesterday Laboratory Results - last 24 hr 08/19/16 08/19/16 08/20/16 16:30 21:42 05:47 WBC RBC Hgb Hct MCV MCHC RDW Plt Count MPV Neutrophils % Lymphocytes % Monocytes % Eosinophils % Basophils % Platelet Estimate Platelet Comment Sodium Potassium Chloride Carbon Dioxide Anion Gap BUN Creatinine POC Glucometer 108 154 77 Random Glucose Calcium 08/20/16 08/20/16 08/20/16 07:05 07:05 11:36 WBC 11.4 H RBC 3.15 L Hgb 8.5 L Hct 26.6 L MCV 84.5 MCHC 32.1 RDW 17.1 H Plt Count 200 MPV 7.3 L Neutrophils % 70.1 Lymphocytes % 15.9 Monocytes % 10.9 H Eosinophils % 2.5 Basophils % 0.6 Platelet Estimate Adequate Platelet Comment No clumping noted Sodium 136 Potassium 4.4 Chloride 94 L Carbon Dioxide 33 H Anion Gap 9 BUN 33 H D Creatinine 7.6 H* D POC Glucometer 135 Random Glucose 79 Calcium 8.4 L Active Medications Generic Name Dose Route Start Last Admin Trade Name Freq PRN Reason Stop Dose Admin Acetaminophen 650 mg 08/19/16 09:12 08/20/16 11:33 Tylenol - PO 650 mg Q4H PRN Administration FEVER OR PAIN Calcium Acetate 667 mg 08/19/16 12:00 08/20/16 10:44 Phoslo - PO 667 mg TIDCM [facility] Administration Clopidogrel Bisulfate 75 mg 08/19/16 10:00 08/20/16 10:44 Plavix - PO 75 mg DAILY [facility] Administration Collagenase 1 applic 08/19/16 10:00 08/20/16 10:44 Santyl - TP Not Given DAILY [facility] Sodium Chloride 1,000 mls @ 125 mls/hr 08/19/16 08:45 08/19/16 14:36 Normal Saline - IV Not Given ASDIR [facility] Ceftazidime 1 gm/ Dextrose 50 mls @ 100 mls/hr 08/19/16 10:00 08/20/16 10:43 IVPB 100 mls/hr DAILY [facility] Administration Insulin Aspart 1 vial 08/19/16 11:00 08/20/16 11:38 Novolog Vial Sliding Scale - SQ Not Given ACHS [facility] Protocol Insulin Detemir 6 units 08/19/16 22:00 08/19/16 21:48 Levemir Vial SQ 6 units HS [facility] Administration Methylnaltrexone [place] 8 mg 08/19/16 10:00 08/20/16 12:03 Relistor - SQ Not Given DAILY [facility] Metronidazole 500 mg 08/19/16 14:00 08/20/16 05:52 Flagyl - PO 500 mg TID [facility] Administration Minoxidil 10 mg 08/19/16 10:00 08/20/16 10:43 Loniten - PO 10 mg DAILY [facility] Administration Ondansetron HCl 8 mg 08/19/16 09:12 Zofran Odt - SL Q6H PRN NAUSEA AND/OR VOMITING Polyethylene Glycol 17 gm 08/19/16 10:00 08/20/16 10:44 Miralax (For Daily Use) - PO 17 gm DAILY [facility] Administration Senna/Docusate Sodium 1 tablet 08/19/16 10:00 08/20/16 10:43 Pericolace - PO 1 tablet BID [facility] Administration Torsemide 20 mg 08/19/16 14:00 08/20/16 05:52 Demadex - PO 20 mg BIDLASIX [facility] Administration ASSESSMENT/PLAN: 55 yo M with a PMH of Trans metatarsal amputation on 08/10 admitted for dry gangrene of the right forefoot s/p debridement and revision yesterday 1. Dry gangrene of the right forefoot -History of osteomyelitis of 4th and 5th digit on right foot -s/p transmetatarsal amputation on 08/10 -Tissue culture grew proteus mirabilis, pseudomonas aeruginosa, and staphylococcus coagulase negative -Wound culture grew Pseudomonas Aeruginosa, Proteus Mirabilis, Klebsiella Pneumoniae -Wound appears necrotic and boggy -Patient had procedure done at 0730 -BKA discussed with patient, but pt does not want at this time. 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 Almanzar/Jose G to see how the foot looks -Continue tylenol 650mg Q4 PRN for pain -For wound care, use Santyl wound gel every day and place a sterile dry dressing over the gel per Dr. Almanzar -Requires abx for 6 weeks -Patient will remain in hospital to monitor post operative 2. Right breast lesion -Soft, nontender to palpation, freely mobile -Considering lipoma. Less likely breast cancer -Unchanged Plan: -F/u with U/S today 3. Constipation - Possibly opiate induced - 1 BM with relistor - improved Plan: -Continue pericolace 1 tablet BID PRN -Continue relistor 8mg SQ Daily 4. ESRD on HD -Currently on /Tue/Tuesday regimen Plan: -HD today after flap revision -Will get vancomycin 1g IV and Fortaz 1gm IV with HD -Continue home regimen -Nephrology on board: Sarah Salmeron 4. Normocytic anemia -Hgb is stable -Likely due to CKD Plan: -Continue Procrit 10,000 units SQ weekly -Consult: Sarah Salmeron 5. HTN -Improving -Patient was nervous prior to going to OR Plan: -Continue Minoxidil 10 mg PO daily and Torsemide 20 mg PO BID -Will reassess post op 6. DM -stable Plan: -Continue ISS and BGM ACHS 7. DVT Prophylaxis Plan: -Heparin stopped for OR procedure
--- NOTE | 2016-08-20 12:49 | PN ---
Progress Note (short form) - Note Progress Note: s/p debridement of the foot-podiatry note reviewed Vital Signs Period Temp Pulse Resp BP Sys/Salas Pulse Ox Last 24 Hr 98.1 F-99.1 F 70-84 18-18 140-175/77-85 95 cor-rrr right breast mass retroareolar lungs clear abd soft,nt ext no edema CBC, BMP 08/20/16 07:05 08/20/16 07:05 Microbiology 08/19/16 09:00 Gram Stain - Final Foot - Rt Transmetatarsal Amp. Site Wound Culture - Preliminary NO GROWTH OBTAINED AFTER 24 HOURS INCUBATION, REINCUBATED. a/p diabetic foot infection osteomyelitis esrd/hd s/p TMA breast mass continue vancomycin with HD continue fortaz and flagyl plan to continue vanco/fortaz with HD and po flagyl d/w renal discharge planning per primary service breast mass- per primary service f/u podiatry
--- NOTE | 2016-08-20 13:50 | PATH ---
Surgical Pathology Report Patient Name: ZAK THOMPSON Med. Rec. #: [id number] /Age/Gender: 1960 (Age: 55) / M Account: [id number] Location: [facility] MED/SURG Taken: 08/19/2016 Received: 08/19/2016 Reported: 08/20/2016 Physicians: Vazquez Almanzar DPM Specimen(s) Received RIGHT FOOT DEBRIDED TISSUE AND BONE Clinical History Open wound of right foot Final Diagnosis SKIN, SOFT TISSUE AND BONE, RIGHT FOOT, DEBRIDEMENT: SKIN AND UNDERLYING SOFT TISSUE WITH GANGRENOUS NECROSIS ALONG WITH ATTACHED SMALL FRAGMENT OF NECROTIC APPEARING BONE. SEPARATE FRAGMENT OF BONE WITH ARTICULAR CARTILAGE APPEARS VIABLE. Electronically Signed Jorge Tellez M.D. Gross Description Received in formalin labeled "right foot debrided tissue and bone" is a 10.0 x 7.0 x 1.2 cm aggregate of multiple undesignated fragments of necrotic skin, soft tissue and bone. [employer] sections are submitted in one cassette, following decalcification. /08/19/201608/19/2016
--- NOTE | 2016-08-20 14:05 | PN ---
Progress Note (short form) - Note Progress Note: Renal Follow up for ESRD on HD Pt seen and examined at the bedside no acute complaints s/p US for breast mass Vital Signs Temperature 98.2 F 08/20/16 10:00 Pulse Rate 80 08/20/16 10:00 Respiratory Rate 18 08/20/16 10:00 Blood Pressure 149/80 08/20/16 10:00 O2 Sat by Pulse Oximetry (%) 95 08/19/16 21:00 Gen: NAD, awake and alert CVS: RRR, no M/R Lungs: CTA Abd: soft NT/ND Ext: Right TMA in dressing CBC, BMP 08/20/16 07:05 08/20/16 07:05 Current Medications Acetaminophen (Tylenol -) 650 mg PO Q4H PRN PRN Reason: FEVER OR PAIN Last Admin: 08/20/16 11:33 Dose: 650 mg Calcium Acetate (Phoslo -) 667 mg PO TIDCM [facility] Last Admin: 08/20/16 13:43 Dose: 667 mg Clopidogrel Bisulfate (Plavix -) 75 mg PO DAILY [facility] Last Admin: 08/20/16 10:44 Dose: 75 mg Collagenase (Santyl -) 1 applic TP DAILY [facility] Last Admin: 08/20/16 10:44 Dose: Not Given Ceftazidime 1 gm/ Dextrose 50 mls @ 100 mls/hr IVPB DAILY [facility] Last Admin: 08/20/16 10:43 Dose: 100 mls/hr Insulin Aspart (Novolog Vial Sliding Scale -) 1 vial SQ ACHS [facility] PRN Reason: Protocol Last Admin: 08/20/16 11:38 Dose: Not Given Insulin Detemir (Levemir Vial) 6 units SQ HS [facility] Last Admin: 08/19/16 21:48 Dose: 6 units Methylnaltrexone [place] (Relistor -) 8 mg SQ DAILY [facility] Last Admin: 08/20/16 12:03 Dose: Not Given Metronidazole (Flagyl -) 500 mg PO TID [facility] Last Admin: 08/20/16 13:43 Dose: 500 mg Minoxidil (Loniten -) 10 mg PO DAILY [facility] Last Admin: 08/20/16 10:43 Dose: 10 mg Ondansetron HCl (Zofran Odt -) 8 mg SL Q6H PRN PRN Reason: NAUSEA AND/OR VOMITING Polyethylene Glycol (Miralax (For Daily Use) -) 17 gm PO DAILY [facility] Last Admin: 08/20/16 10:44 Dose: 17 gm Senna/Docusate Sodium (Pericolace -) 1 tablet PO BID [facility] Last Admin: 08/20/16 10:43 Dose: 1 tablet Torsemide (Demadex -) 20 mg PO BIDLASIX [facility] Last Admin: 08/20/16 13:43 Dose: 20 mg A/P 55 year old Gentleman with PMhx of ESRD on HD (TTS), Hypertension, PVD, DM who presented with non-healing food wound and persistent ischemia of distal digits #ESRD on Hd no acute indication for dialysis today #LE wound/Ischemia Management as per vascular Sx and Podiatry continue Abx as per ID will check Vanco level with HD tomororw #Anemia of CKD Continue Epogen with HD no acute indication for transfusion #Breast Mass s/p US, will need Biopsy Thank you Cm Torres DO
--- NOTE | 2016-08-20 16:18 | PN ---
Physical Exam: SUBJECTIVE: Patient seen and examined No acute events overnight. No complaints this morning. OBJECTIVE: Vital Signs Period Temp Pulse Resp BP Sys/Salas Pulse Ox Last 24 Hr 98.2 F-99.1 F 80-84 18-18 140-149/78-80 93-95 GENERAL: The patient is awake, alert, and fully oriented, in no acute distress. HEAD: Normal with no signs of trauma. EYES: Extraocular movements intact, sclera anicteric, conjunctiva clear. ENT: Oropharynx clear without exudates, moist mucous membranes. NECK: Trachea midline, full range of motion. LUNGS: Breath sounds equal, clear to auscultation bilaterally, no wheezes, no crackles, no accessory muscle use. HEART: Regular rate and rhythm, S1, S2 without murmur, rub or gallop. ABDOMEN: Soft, nontender, nondistended, normoactive bowel sounds, no guarding, no rebound, no hepatosplenomegaly, no masses. EXTREMITIES: RLE: Today the area was wrapped. LLE: 2+ pulses, skin intact, no edema SKIN: Right breast lesion 1-2 cm, soft, mobile, nontender, unchanged from yesterday Laboratory Results - last 24 hr 08/19/16 08/19/16 08/20/16 16:30 21:42 05:47 WBC RBC Hgb Hct MCV MCHC RDW Plt Count MPV Neutrophils % Lymphocytes % Monocytes % Eosinophils % Basophils % Platelet Estimate Platelet Comment Sodium Potassium Chloride Carbon Dioxide Anion Gap BUN Creatinine POC Glucometer 108 154 77 Random Glucose Calcium 08/20/16 08/20/16 08/20/16 07:05 07:05 11:36 WBC 11.4 H RBC 3.15 L Hgb 8.5 L Hct 26.6 L MCV 84.5 MCHC 32.1 RDW 17.1 H Plt Count 200 MPV 7.3 L Neutrophils % 70.1 Lymphocytes % 15.9 Monocytes % 10.9 H Eosinophils % 2.5 Basophils % 0.6 Platelet Estimate Adequate Platelet Comment No clumping noted Sodium 136 Potassium 4.4 Chloride 94 L Carbon Dioxide 33 H Anion Gap 9 BUN 33 H D Creatinine 7.6 H* D POC Glucometer 135 Random Glucose 79 Calcium 8.4 L Active Medications Generic Name Dose Route Start Last Admin Trade Name Freq PRN Reason Stop Dose Admin Acetaminophen 650 mg 08/19/16 09:12 08/20/16 11:33 Tylenol - PO 650 mg Q4H PRN Administration FEVER OR PAIN Calcium Acetate 667 mg 08/19/16 12:00 08/20/16 13:43 Phoslo - PO 667 mg TIDCM MONIK Administration Clopidogrel Bisulfate 75 mg 08/19/16 10:00 08/20/16 10:44 Plavix - PO 75 mg DAILY MONIK Administration Collagenase 1 applic 08/19/16 10:00 08/20/16 10:44 Santyl - TP Not Given DAILY MONIK Epoetin Alexander 20,000 units 08/21/16 08:00 Epogen - IVPUSH 08/21/16 08:01 ONCE ONE Ceftazidime 1 gm/ Dextrose 50 mls @ 100 mls/hr 08/19/16 10:00 08/20/16 10:43 IVPB 100 mls/hr DAILY MONIK Administration Vancomycin HCl 1,000 mg/ 250 mls @ 250 mls/hr 08/21/16 08:00 Dextrose IVPB 08/21/16 08:59 ONCE ONE Protocol Insulin Aspart 1 vial 08/19/16 11:00 08/20/16 11:38 Novolog Vial Sliding Scale - SQ Not Given ACHS [facility] Protocol Insulin Detemir 6 units 08/19/16 22:00 08/19/16 21:48 Levemir Vial SQ 6 units HS MONIK Administration Methylnaltrexone Burton 8 mg 08/19/16 10:00 08/20/16 12:03 Relistor - SQ Not Given DAILY MONIK Metronidazole 500 mg 08/19/16 14:00 08/20/16 13:43 Flagyl - PO 500 mg TID MONIK Administration Minoxidil 10 mg 08/19/16 10:00 08/20/16 10:43 Loniten - PO 10 mg DAILY MONIK Administration Ondansetron HCl 8 mg 08/19/16 09:12 Zofran Odt - SL Q6H PRN NAUSEA AND/OR VOMITING Polyethylene Glycol 17 gm 08/19/16 10:00 08/20/16 10:44 Miralax (For Daily Use) - PO 17 gm DAILY MONIK Administration Senna/Docusate Sodium 1 tablet 08/19/16 10:00 08/20/16 10:43 Pericolace - PO 1 tablet BID MONIK Administration Torsemide 20 mg 08/19/16 14:00 08/20/16 13:43 Demadex - PO 20 mg BIDLASIX MONIK Administration ASSESSMENT/PLAN: 1. 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 Almanzar, the tissue at the wound site is healthy and vitalized. -Pt will start wound vac 125 mmHg with home nursing services on d/c. Pt has wound vac at home and needs new supplies for white foam to cover bone. 2. Right breast lesion -Soft, nontender to palpation, freely mobile -Considering lipoma. Less likely breast cancer -Unchanged -U/s shows solid mass Plan: -outpatient core needle biopsy -f/u with Dr. Castillo 3. Constipation - Possibly opiate induced - 1 BM with relistor - improved Plan: -Continue pericolace 1 tablet BID PRN -Continue relistor 8mg SQ Daily 4. ESRD on HD -Currently on /Tue/Tuesday regimen Plan: -HD tomorrow -Will get vancomycin 1g IV and Fortaz 1gm IV with HD -Continue home regimen -Nephrology on board: Sarah Salmeron 4. Normocytic anemia -Hgb is stable -Likely due to CKD Plan: -Continue Procrit 10,000 units SQ weekly -Consult: Sarah Salmeron 5. HTN -Improving -Patient was nervous prior to going to [place] Plan: -Continue Minoxidil 10 mg PO daily and Torsemide 20 mg PO BID -Will reassess post op 6. DM -stable Plan: -Continue ISS and BGM ACHS 7. DVT Prophylaxis Plan: -Heparin SQ 5000 units BID Visit type - Emergency Visit Emergency Visit: No - New Patient This patient is new to me today: No - Critical Care Critical Care patient: No
--- NOTE | 2016-08-20 16:19 | PN ---
Teaching Attending Note Name of Resident: Jimbo Beckford ATTENDING PHYSICIAN STATEMENT I saw and evaluated the patient. I reviewed the resident's note and discussed the case with the resident. I agree with the resident's findings and plan as documented. SUBJECTIVE: No complaints. OBJECTIVE: Vital Signs Period Temp Pulse Resp BP Sys/Salas Pulse Ox Last 24 Hr 98.2 F-99.1 F 80-84 18-18 140-149/78-80 93-95 HEART: S1S2, RRR LUNGS: Clear ABDOMEN: Soft, non-tender, non-distended, normal BS EXTREMITIES: No edema. Right foot wrapped. ASSESSMENT AND PLAN: This is a 55-year-old man wtih a history of type 2 DM, ESRD on HD, HTN, osteomyelitis of right 4th and 5th toes s/p with amputation last month and on Vancomycin, who presented to the ER with right foot pain. 1. Gangrene of right forefoot - s/p transmetatarsal amputation 08/10 - s/p debridement and lavage 08/19 - Continue Fortaz, Flagyl, Vancomycin - Wound VAC - Non-weightbearing on right foot - Follow-up in wound clinic 2. Constipation, opiate-induced - Resolved 3. ESRD - Continue HD, PhosLo 4. Anemia secondary to ESRD - Hemoglobin is stable - Continue Procrit 5. HTN - Continue Minoxidil, Demadex 6. Type 2 DM - Continue Levemir, Novolog sliding scale 7. Right breast mass - US shows large retro-areolar mass - will need biopsy
[2016-08-20] MEDS ORDERED: INSULIN (NOVOLOG) ASPART 100 UNITS/ML 10ML VIAL ONE (21:01)
[2016-08-20] MEDS: INSULIN DETEMIR 100 UNITS/ML MDV SQ SCH (21:28)
[2016-08-20] MEDS: HEPARIN NA (PORCINE) 5,000 UNITS/ML 1ML VIAL SQ SCH (21:28)
[2016-08-21] MEDS ORDERED: INSULIN (NOVOLOG) ASPART 100 UNITS/ML 10ML VIAL ONE (05:29)
[2016-08-21] MEDS: metroNIDAZOLE 250 MG TABLET PO SCH ×2 (05:51→13:21)
[2016-08-21] MEDS: TORSEMIDE 20 MG TABLET (FP) PO SCH ×2 (05:51→15:30)
[2016-08-21] MEDS: ACETAMINOPHEN 325 MG TABLET (FP) PO PRN ×2 (06:00→15:30)
[2016-08-21] MEDS: INSULIN SLIDING SCALE (NOVOLOG) 1 VIAL SQ SCH ×3 (06:06→17:45)
[2016-08-21] MEDS ORDERED: VANCOMYCIN 1,000 MG in DEXTROSE 5%-WATER - 250 ML IVPB ONE (08:00)
[2016-08-21] MEDS ORDERED: EPOETIN ALFA 20,000 UNIT/1 ML VIAL IVPUSH ONE (08:00)
[2016-08-21 08:52] LABS: MCH 27.6 pg (25.7-33.7); MCHC 32.4 g/dl (32.0-35.9); MEAN CELL VOLUME 85.1 fl (80-96); MEAN PLT VOLUME 7.6 fl (7.5-11.1); PLATELET COUNT 244 K/MM3 (134-434); RDW 17.6 % (11.9-15.9); WHITE BLOOD COUNT 10.5 K/mm3 (4.0-10.0)
--- NOTE | 2016-08-21 10:04 | PN ---
Progress Note (short form) - Note Progress Note: Renal Follow up for ESRD on HD Pt seen and examined during dialysis BP 140/85, AVF with good flow Goal UF is 3L pt without complaints Vital Signs Temperature 98.2 F 08/21/16 07:15 Pulse Rate 80 08/21/16 08:20 Respiratory Rate 18 08/21/16 08:20 Blood Pressure 170/84 08/21/16 08:20 O2 Sat by Pulse Oximetry (%) 99 08/20/16 21:00 Intake & Output 08/18/16 08/19/16 08/20/16 08/21/16 23:59 23:59 23:59 23:59 Intake Total 700 400 740 Output Total 50 Balance 700 350 740 Weight 205 lb 2 oz 214 lb Gen: NAD, awake and alert CVS: RRR, no M/R Lungs: CTA Abd: soft NT/ND Ext: Right TMA in dressing CBC, BMP 08/21/16 07:20 08/20/16 07:05 Laboratory Tests 08/21/16 07:20 Phosphorus 5.0 H Laboratory Tests 08/21/16 06:00 Random Vancomycin 19.171 Current Medications Acetaminophen (Tylenol -) 650 mg PO Q4H PRN PRN Reason: FEVER OR PAIN Last Admin: 08/21/16 06:00 Dose: 650 mg Calcium Acetate (Phoslo -) 667 mg PO TIDCM [facility] Last Admin: 08/20/16 18:34 Dose: 667 mg Clopidogrel Bisulfate (Plavix -) 75 mg PO DAILY [facility] Last Admin: 08/20/16 10:44 Dose: 75 mg Collagenase (Santyl -) 1 applic TP DAILY [facility] Last Admin: 08/20/16 10:44 Dose: Not Given Heparin Sodium (Porcine) (Heparin -) 5,000 unit SQ BID [facility] Last Admin: 08/20/16 21:28 Dose: 5,000 unit Ceftazidime 1 gm/ Dextrose 50 mls @ 100 mls/hr IVPB DAILY [facility] Last Admin: 08/20/16 10:43 Dose: 100 mls/hr Vancomycin HCl 500 mg/ (Dextrose) 100 mls @ 200 mls/hr IVPB ONCE ONE Stop: 08/21/16 11:29 Last Admin: 08/21/16 10:01 Dose: 200 mls/hr Insulin Aspart (Novolog Vial Sliding Scale -) 1 vial SQ ACHS [facility] PRN Reason: Protocol Last Admin: 08/21/16 06:06 Dose: Not Given Insulin Detemir (Levemir Vial) 6 units SQ HS [facility] Last Admin: 08/20/16 21:28 Dose: 6 units Methylnaltrexone Scott (Relistor -) 8 mg SQ DAILY [facility] Last Admin: 08/20/16 12:03 Dose: Not Given Metronidazole (Flagyl -) 500 mg PO TID [facility] Last Admin: 08/21/16 05:51 Dose: 500 mg Minoxidil (Loniten -) 10 mg PO DAILY [facility] Last Admin: 08/20/16 10:43 Dose: 10 mg Ondansetron HCl (Zofran Odt -) 8 mg SL Q6H PRN PRN Reason: NAUSEA AND/OR VOMITING Polyethylene Glycol (Miralax (For Daily Use) -) 17 gm PO DAILY [facility] Last Admin: 08/20/16 10:44 Dose: 17 gm Senna/Docusate Sodium (Pericolace -) 1 tablet PO BID [facility] Last Admin: 08/20/16 21:28 Dose: Not Given Torsemide (Demadex -) 20 mg PO BIDLASIX [facility] Last Admin: 08/21/16 05:51 Dose: 20 mg A/P 55 year old Gentleman with PMhx of ESRD on HD (TTS), Hypertension, PVD, DM who presented with non-healing food wound and persistent ischemia of distal digits #ESRD on Hd tolerating HD well #LE wound/Ischemia Management as per vascular Sx and Podiatry continue Abx as per ID will give Vanco 500mg with HD today #Anemia of CKD Continue Epogen with HD no acute indication for transfusion #Breast Mass s/p US, will need Biopsy as outpatient Thank you Cm Torres DO
[2016-08-21] MEDS ORDERED: VANCOMYCIN 500 MG in DEXTROSE 5%-WATER - 100 ML IVPB ONE (11:00)
[2016-08-21] MEDS: CALCIUM ACETATE 667 MG CAPSULE (FP) PO SCH ×2 (12:38→13:21)
[2016-08-21] MEDS: HEPARIN NA (PORCINE) 5,000 UNITS/ML 1ML VIAL SQ SCH (12:39)
[2016-08-21] MEDS ORDERED: PT OWN MED DRAWER 7, Y5N ONE (13:01)
[2016-08-21] MEDS: CLOPIDOGREL BISULFATE 75 MG TABLET (FP) PO SCH (13:24)
[2016-08-21] MEDS: SENNOSIDES/DOCUSATE COMBO (SENNA PLUS) TABLET (UD) PO SCH (13:25)
[2016-08-21] MEDS: POLYETHYLENE GLYCOL 3350 119 GM BTL PO SCH (13:26)
[2016-08-21] MEDS: CEFTAZIDIME PENTAHYDRATE 1 GM in DEXTROSE 5%-WATER - 50 ML IVPB SCH (13:26)
[2016-08-21] MEDS: MINOXIDIL 10 MG TABLET PO SCH (13:26)
[2016-08-21] MEDS: Methylnaltrexone Bromide 12 MG/0.6 ML KIT SQ SCH (13:26)
[2016-08-21 14:47] VITALS: BP 127/66; PULSE 67; TEMP 97.8
--- NOTE | 2016-08-21 15:19 | DS ---
Physical Exam: SUBJECTIVE: Patient seen and examined No acute events overnight. No complaints this morning. Patient seen during dialysis. OBJECTIVE: Vital Signs Period Temp Pulse Resp BP Sys/Salas Pulse Ox Last 24 Hr 97.8 F-98.5 F 67-89 16-20 127-186/66-89 99 PHYSICAL EXAM GENERAL: The patient is awake, alert, and fully oriented, in no acute distress. HEAD: Normal with no signs of trauma. EYES: Extraocular movements intact, sclera anicteric, conjunctiva clear. ENT: Oropharynx clear without exudates, moist mucous membranes. NECK: Trachea midline, full range of motion. LUNGS: Breath sounds equal, clear to auscultation bilaterally, no wheezes, no crackles, no accessory muscle use. HEART: Regular rate and rhythm, S1, S2 without murmur, rub or gallop. ABDOMEN: Soft, nontender, nondistended, normoactive bowel sounds, no guarding, no rebound, no hepatosplenomegaly, no masses. EXTREMITIES: RLE: Today the area was wrapped. LLE: 2+ pulses, skin intact, no edema SKIN: Right breast lesion 1-2 cm, soft, mobile, nontender LABS Laboratory Results - Laboratory Tests 08/09/16 08/09/16 08:20 08:20 WBC 17.9 H D Hgb 9.0 L D Hct 27.2 L Plt Count 303 D 08/21/16 08/21/16 08/21/16 06:00 07:20 07:20 WBC 10.5 H RBC 2.94 L Hgb 8.1 L Hct 25.0 L MCV 85.1 MCH 27.6 MCHC 32.4 RDW 17.6 H Plt Count 244 D MPV 7.6 POC Glucometer Phosphorus 5.0 H Random Vancomycin 19.171 HOSPITAL COURSE: Date of Admission:08/09/16 Date of Discharge: 08/21/16 55 y.o. M with PMH of ESRD on HD and osteomyelitis of the R 4th and 5th toes s/ p amputation was admitted for further debridement and amputation on 08/10. Wound cultures grew pseudomoas, proteus, and klebsiella. Patient was started on vancomycin and zosyn and monitored for several days while receiving HD in the hospital. On 08/19, patient underwent second debridement and revision after areas of the foot appeared boggy and necrotic. He was switched to vancomycin and fortaz (to be given with HD) and flagyl daily. Patient has remained afebrile. On admission, pt had a leukocytosis of 17.9 which improved with antibiotic therapy. He will complete a 6 week course of antibiotic therapy (until September 21). He will use a wound vac at home to be changed every 3 days. Two days prior to discharge, patient complained of a right breast mass. U/s showed a large retroareolar mass. He will f/u outpt for core needle biopsy with Dr. Castillo. Minutes to complete discharge: 30 Discharge Summary Reason For Visit: OPEN WOUND OF FOOT Current Active Problems Ambulatory dysfunction (Acute) Gangrene of toe of right foot (Acute) S/P amputation of foot (Acute) Wound with infection determined by examination (Acute) ESRD (end stage renal disease) (Chronic) HTN (hypertension) (Chronic) Condition: Improved - Instructions Diet, Activity, Other Instructions: -Your tissue culture grew 3 bugs. (Pseudomonas, Proteus, and Staph) -Continue getting antibiotics (Vancomycin and Fortaz) with hemodialysis for a total of 6 weeks (until September 21) -Continue taking Flagyl 500mg 1 tablet three times a day for a total of 6 weeks (until September 21). Take 1 tablet tonight @ 10 pm (08/21/16) -Use your home wound VAC at 125 mmHg continuously. Make sure to change every three days. -Do not put any weight on the right foot. -Follow up with Dr. Almanzar (chauffeur airport limousine) on 08/24/16 in Wound care center -Follow up with Dr. Araiza (vascular surgeon) in 1 week -Referral for surgeon (Dr. Castillo) has been provided for biopsy of the mass on your breast. If you have chest pain, shortness of breath, or any new symptoms please come back to the hospital immediately. Referrals: Navjot Castillo MD [Staff Physician] - 1 Week Vazquez Almanzar MD [Staff Physician] - 08/24/16 Lee Araiza MD [Staff Physician] - 1 Week Disposition: HOME - Home Medications Comprehensive Discharge Medication List: Ambulatory Orders Acetaminophen [Tylenol] 650 mg PO Q4H PRN 07/21/16 Minoxidil [Loniten -] 10 mg PO DAILY 07/21/16 Torsemide 20 mg PO BID 07/21/16 Clopidogrel Bisulfate [Plavix -] 75 mg PO DAILY #30 tablet 07/27/16 Calcium Acetate [Phoslo -] 667 mg PO TIDCM 08/09/16 Insulin (Levemir) [Levemir Flexpen -] 0 units SQ HS 08/09/16 Ceftazidime Na/Dextrose,Iso [Oczoam-Wjt-Vglnx 2 gm/50 ml] 2 gm IV TUTHSA #18 [email or web address] 08/17/16 Lancets/Blood Glucose Strips [Fora [id number] Strp-Lnct] 1 each PRN #60 combo..pkg 08/21/16 Metronidazole 500 mg PO TID #94 tablet 08/21/16 Miscellaneous Medical Supply [Outpatient Order] 1 each ASDIR #1 misc Walker [Ultra-Light Rollator] 1 each DAILY #1 each 08/21/16 This patient is new to me today: No Emergency Visit: No Critical Care patient: No - Discharge Referral Referred to [facility] Yes Physician Referral: Lee Araiza DO ([facility])
[2016-08-21] MEDS: COLLAGENASE CLOSTRIDIUM HIST. 30 GRAMS TUBE TP SCH (15:30)
--- NOTE | 2016-08-21 15:41 | PN ---
Teaching Attending Note Name of Resident: Jimbo Beckford ATTENDING PHYSICIAN STATEMENT I saw and evaluated the patient. I reviewed the resident's note and discussed the case with the resident. I agree with the resident's findings and plan as documented. SUBJECTIVE: OBJECTIVE: Vital Signs Period Temp Pulse Resp BP Sys/Salas Pulse Ox Last 24 Hr 97.8 F-98.5 F 67-89 16-20 127-186/66-89 99 HEART: S1S2, RRR LUNGS: Clear ABDOMEN: Soft, non-tender, non-distended, normal BS EXTREMITIES: No edema. Right foot wrapped. ASSESSMENT AND PLAN: This is a 55-year-old man wtih a history of type 2 DM, ESRD on HD, HTN, osteomyelitis of right 4th and 5th toes s/p with amputation last month and on Vancomycin, who presented to the ER with right foot pain. 1. Gangrene of right forefoot - s/p transmetatarsal amputation 08/10 - s/p debridement and lavage 08/19 - Continue Fortaz, Flagyl, Vancomycin - Wound VAC - Non-weightbearing on right foot - Follow-up in wound clinic 2. Constipation, opiate-induced - Resolved 3. ESRD - Continue HD 4. Hyperphosphatemia - Continue PhosLo 5. Anemia secondary to ESRD - Continue Procrit 6. HTN - Continue Minoxidil, Demadex 7. Type 2 DM - Continue Levemir, Novolog sliding scale 8. Right breast mass - US shows large retro-areolar mass - outpatient biopsy 9. Ok for discharge home
== END 2016-08-21 18:15 | disposition home health service (06) | DRG 239 ==
LOC: JER 07:07 → JERBED 10:14 → J5S 12:29 → J8W 08-11 01:51
PROVIDERS: ADMIT Internal Medicine; ATTEND Internal Medicine
PROC: 0Y6M0ZB Detachment at Right Foot, Partial 2nd Ray, Open Approach (ICD-10-PCS; 2016-08-10)
PROC: 0Y6M0ZC Detachment at Right Foot, Partial 3rd Ray, Open Approach (ICD-10-PCS; 2016-08-10)
PROC: 0Y6M0ZD Detachment at Right Foot, Partial 4th Ray, Open Approach (ICD-10-PCS; 2016-08-10)
PROC: 0Y6M0ZF Detachment at Right Foot, Partial 5th Ray, Open Approach (ICD-10-PCS; 2016-08-10)
PROC: 0HXMXZZ Transfer Right Foot Skin, External Approach (ICD-10-PCS; 2016-08-10)
PROC: 0J9Q00Z Drainage of Right Foot Subcutaneous Tissue and Fascia with Drainage Device, Open Approach (ICD-10-PCS; 2016-08-10)
PROC: 30233N1 Transfusion of Nonautologous Red Blood Cells into Peripheral Vein, Percutaneous Approach (ICD-10-PCS; 2016-08-10)
PROC: 0Y6M0Z9 Detachment at Right Foot, Partial 1st Ray, Open Approach (ICD-10-PCS; principal; 2016-08-10 11:00)
PROC: 5A1D60Z (ICD-10-PCS; 2016-08-12)
PROC: 0QBN0ZZ Excision of Right Metatarsal, Open Approach (ICD-10-PCS; 2016-08-19)
PROC: 3E1U38Z Irrigation of Joints using Irrigating Substance, Percutaneous Approach (ICD-10-PCS; 2016-08-19)
DX: E11.52 Type 2 diabetes mellitus with diabetic peripheral angiopathy with gangrene (principal); N18.6 End stage renal disease; I12.0 Hypertensive chronic kidney disease with stage 5 chronic kidney disease or end stage renal disease; M86.671 Other chronic osteomyelitis, right ankle and foot; E11.65 Type 2 diabetes mellitus with hyperglycemia; Z79.4 Long term (current) use of insulin; E11.22 Type 2 diabetes mellitus with diabetic chronic kidney disease; Z99.2 Dependence on renal dialysis; D63.1 Anemia in chronic kidney disease; E11.69 Type 2 diabetes mellitus with other specified complication; L08.9 Local infection of the skin and subcutaneous tissue, unspecified; E11.621 Type 2 diabetes mellitus with foot ulcer; B96.1 Klebsiella pneumoniae [K. pneumoniae] as the cause of diseases classified elsewhere; B96.4 Proteus (mirabilis) (morganii) as the cause of diseases classified elsewhere; Z89.421 Acquired absence of other right toe(s); K59.00 Constipation, unspecified; F32.9 Major depressive disorder, single episode, unspecified; N63 Unspecified lump in breast
CPT/HCPCS: 36415; 36430; 73610-TC-RT; 73630-TC-RT; 76642-TC-RT; 80048; 80053; 82565; 83735; 84100; 84520; 85025; 85027; 85610; 85651; 85730; 86140; 86850; 86900; 86901; 86922; 87070; 87075; 87186; 87205; 88304-TC; 88305-TC; 88311-TC; 94760; 97116-GP; 97162-GP; 99285-25; G0277; G0480; J0885; J1644; P9058

== ENCOUNTER 2016-08-24 00:28 | Inpatient (IN) | payer OTHER ==
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
--- NOTE | 2016-08-24 04:33 | PDOC ---
Attending Attestation - Resident Resident Name: Adama Brown - ED Attending Attestation I have performed the following: I have examined & evaluated the patient, The case was reviewed & discussed with the resident, I agree w/resident's findings & plan, Exceptions are as noted - HPI HPI: 08/24/16 04:34 The patient is a 55 year old male with significant past medical history of hypertension, uncontrolled IDDM, ESRD on HD (/), osteomyelitis of the R 4th and 5th toes s/p amputation s/p recent R foot TMA (08/10/2016) and debridement (08/19/2016) who presents to the ED for continued bleeding from surgical site. Patient was recently admitted for further amputation (08/10) and debridement (08/19) and discharge a few days ago. States since his surgery, he has had continued bleeding from the surgical site. Patient is currently on plavix. The patient denies fever, chills, diaphoresis, cough, SOB, and chest pain. The patient denies abdominal pain, nausea, vomiting, and diarrhea. PCP: Dr. Yang Gonzalez Nephro: Dr. Sarah Wang Vascular: Dr. Lee Araiza Podiatry: Dr. Almanzar - Physicial Exam PE: 08/24/16 04:34 GENERAL: Well-appearing, well-nourished. No apparent distress. HEENT: Normocephalic, atraumatic. PERRL, EOM intact. CARDIOVASCULAR: Normal S1, S2. Regular rate and rhythm. PULMONARY: Clear to auscultation bilaterally. ABDOMEN: Soft, non-distended, non-tender. EXTREMITIES: Normal ROM in all four extremities. No gross deformities. Right forefoot amputation. Continued oozing of venous blood from the surgical site. Rebandage. SKIN: Warm, dry. No rash NEUROLOGICAL: No focal neurological deficits. Medical Decision Making - Medical Decision Making 08/24/16 04:35 Documentation prepared by Roxanne Wiggins, acting as medical records manager for Mansoor Arias MD/.
[2016-08-24 05:01] LABS: MCH 26.8 pg (25.7-33.7); MCHC 31.6 g/dl (32.0-35.9); MEAN PLT VOLUME 7.2 fl (7.5-11.1); PLATELET COUNT 256 K/MM3 (134-434); RDW 17.9 % (11.9-15.9); WHITE BLOOD COUNT 8.2 K/mm3 (4.0-10.0)
[2016-08-24 05:15] LABS: INR 1.44 (0.82-1.09)
[2016-08-24 05:26] LABS: ANION GAP 10 (8-16); CALCIUM 8.1 mg/dL (8.5-10.1); CO2 31 mmol/L (21-32); GLUCOSE,RANDOM 111 mg/dL (74-106)
[2016-08-24] MEDS ORDERED: metroNIDAZOLE 500 MG TABLET PO SCH (06:30)
[2016-08-24] MEDS ORDERED: metroNIDAZOLE 250 MG TABLET ONE (06:49)
[2016-08-24] MEDS ORDERED: ACETAMINOPHEN 325 MG TABLET (FP) PO ONE ×2 (06:52→22:24)
[2016-08-24] MEDS ORDERED: ACETAMINOPHEN 325 MG TABLET (FP) ONE (06:57)
[2016-08-24 08:48] VITALS: BMI 31.4
[2016-08-24 09:05] LABS: ALBUMIN 2.2 g/dl (3.4-5.0); ALK PHOS 109 U/L (45-117); BILIRUBIN,TOTAL 0.3 mg/dL (0.2-1.0); SGOT/AST 24 U/L (15-37); SGPT/ALT 17 U/L (12-78); TOT PROT 6.7 g/dl (6.4-8.2)
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
[2016-08-24] MEDS: MINOXIDIL 10 MG TABLET PO SCH (09:37)
[2016-08-24] MEDS: CALCIUM ACETATE 667 MG CAPSULE (FP) PO SCH ×3 (09:37→19:44)
[2016-08-24] MEDS: TORSEMIDE 20 MG TABLET (FP) PO SCH ×2 (09:37→13:44)
--- NOTE | 2016-08-24 10:41 | CONSULT ---
Consult - text type - Consultation Consultation Note: Podiatry Consultation: 55 year old IDDM, PVD, ESRD on HD M presents for admission after noting excessive bleeding from his post-surgical site after being recently discharged from the hospital on VAC therapy. Patient states that over the weekend he noted extensive bleeding from the VAC cannister and woke up in the middle of the night with a blood-soaked bandage. On Plavix AC therapy. Denies F/V/N/C/ SOB/CP. Currently afebrile, VSS. S/p TMA stump debridement with bone debridement. PMHx: IDDM, HTN, ESRD on HD, PVD s/p revascularization RLE Meds: noted in chart ALL: NKMA ABDIAS: R foot: open transmetatarsal amputation stump with fibrogranular wound base, clotting noted over exposed cuneiform bones, no active bleeding noted from bony sites. There is a small amount of oozing from the medial aspect of the soft tissue stump. Upon inspection there is no arteriolar bleeding, no active bleeding, no purulence, no fluctuance, no soft tissue crepitus, no signs of active infection. There is minimal tenderness to palpation. There is no ischemic skin changes to the surgical site. WBC: 8.2 H/H: 7.0/22.2 Imp: 55 year old DM, PVD M s/p R transmetatarsal stump debridement with bone debridement with post-op anemia 1. Patient getting transfusion of fresh frozen plasma. Will closely follow up post-transfusion H/H. 2. After careful inspection there is no signs of active, arteriolar bleeding from the surgical site. 3. Saline moist to dry dressing applied to surgical site. Will hold wound VAC for now. 4. Likely bleeding from VAC therapy on exposed cancellous bone. No surgical intervention for now. 5. Thank you for the consult. Mel Almanzar DPM
--- NOTE | 2016-08-24 10:52 | PN ---
Progress Note (short form) - Note Progress Note: 55 year old man with DM, ESRD/HD s/p recent admission for right TMA he required stump debridement and was just discharged on 08/21/16 on antibiotics with HD (vanco/fortaz) and po flagyl The vac was placed at home by VNS on Tuesday and he had bleeding from the vac site that did not resolve. The Vac was discontinued and a pressure dressing was placed but he continued to bleed and came to the ED for evaluation No Fevers Hemoglobin was 7 in ED He had continued bleeding and was admitted for surgical evaluation of the stump and blood transfusion of note he had a recent angioplasty and stent of the same leg and is on Plavix ros-negative- feels well Current Medications Calcium Acetate (Phoslo -) 667 mg PO TIDCM [facility] Last Admin: 08/24/16 09:37 Dose: 667 mg Insulin Aspart (Novolog Vial Sliding Scale -) 1 vial SQ ACHS [facility] PRN Reason: Protocol Insulin Detemir (Levemir Vial) 6 units SQ HS [facility] Metronidazole (Flagyl -) 500 mg PO TID [facility] Minoxidil (Loniten -) 10 mg PO DAILY [facility] Last Admin: 08/24/16 09:37 Dose: 10 mg Non-Formulary Medication (Ceftazidime Na/Dextrose,Iso [Jpwxag-Gcc-Npmev 2 Gm/50 Ml]) 2 gm IV TUTHSA [facility] Last Admin: 08/24/16 07:06 Dose: Not Given Torsemide (Demadex -) 20 mg PO BIDLASIX [facility] Last Admin: 08/24/16 09:37 Dose: 20 mg Vital Signs Period Temp Pulse Resp BP Sys/Salas Pulse Ox Last 24 Hr 97.8 F-98.2 F 73-79 16-19 156-171/71-84 96-98 cor-rrr lungs clear abd soft,nt ext foot wrapped by podiatry-reports wound clean and no active bleeding +edema bilateral lower extremity CBC, BMP 08/24/16 04:48 08/24/16 04:48 a/p bleeding from stump- per podiatry anemia- transfusion s/p debridement of stump, s/p recent TMA for osteomyelitis/gangrene- continue same antibiotics (d/w housestaff- vanco/fortaz with HD, po flagyl) esrd/hd Problem List - Problems (1) Wound, open, foot with complication Code(s): S91.309A - UNSPECIFIED OPEN WOUND, UNSPECIFIED FOOT, INITIAL ENCOUNTER (2) Anemia Code(s): D64.9 - ANEMIA, UNSPECIFIED (3) Osteomyelitis of right foot Code(s): M86.9 - OSTEOMYELITIS, UNSPECIFIED (4) ESRD needing dialysis Code(s): N18.6 - END STAGE RENAL DISEASE
--- NOTE | 2016-08-24 11:12 | PN ---
Progress Note (short form) - Note Progress Note: Renal Follow up for ESRD on HD 55 year old Gentleman with PMhx of ESRD on HD (TTS), Hypertension, DM Type 2, PVD s/p TMA s/p recent admission for non-healing TMA wound now presented with bleeding from TMA wound while on the wound vac. Pt filled up 3 canisters of the wound vac with blood. Pt reported feeling dizzy on presentation. No chest pain or SOB. Last dialysis was Tuesday as a inpatient. Pt is due for dialysis today. Vital Signs Temperature 97.8 F 08/24/16 08:51 Pulse Rate 73 08/24/16 08:51 Respiratory Rate 18 08/24/16 08:51 Blood Pressure 169/75 08/24/16 08:51 O2 Sat by Pulse Oximetry (%) 98 08/24/16 08:12 Intake & Output 08/21/16 08/22/16 08/23/16 08/24/16 23:59 23:59 23:59 23:59 Weight 219 lb Gen: NAD, awake and alert HEENT: NC/AT, MMM, No JVD CVS: RRR, no M/R Lungs: CTA, no rales or wheeze Abd: soft NT/ND Ext: 2+ RLEedema, 1+ LLE edema, Right foot in dressing, no bood seen on dressing Access: Left ARM AVF + thrill and bruit CBC, BMP 08/24/16 04:48 08/24/16 04:48 Current Medications Calcium Acetate (Phoslo -) 667 mg PO TIDCM [facility] Last Admin: 08/24/16 09:37 Dose: 667 mg Insulin Aspart (Novolog Vial Sliding Scale -) 1 vial SQ ACHS [facility] PRN Reason: Protocol Insulin Detemir (Levemir Vial) 6 units SQ HS [facility] Metronidazole (Flagyl -) 500 mg PO TID [facility] Minoxidil (Loniten -) 10 mg PO DAILY [facility] Last Admin: 08/24/16 09:37 Dose: 10 mg Non-Formulary Medication (Ceftazidime Na/Dextrose,Iso [Upkjxn-Khu-Mgygf 2 Gm/50 Ml]) 2 gm IV TUTHSA [facility] Last Admin: 08/24/16 07:06 Dose: Not Given Torsemide (Demadex -) 20 mg PO BIDLASIX [facility] Last Admin: 08/24/16 09:37 Dose: 20 mg A/P 55 year old Gentleman with PMhx of ESRD on HD (TTS), Hypertension, DM Type 2, PVD s/p TMA s/p recent admission for non-healing TMA wound now presented with bleeding from TMA wound #Bleeding/Blood Loss Anemia Wound Vac removed Pt seen by Podiatry getting PRBC transfusion currently wound care Will give high dose BRENT with HD #PVD/LE wound infection Will give Vanco and Fortaz with HD today Local wound care #ESRD on HD for HD today, 3.5H Tx UF as tolerated Dose all meds for intermittent HD will maintain on TTS schedule as inpatient Renal Diet #Hypertension Continue Minoxidil and Torsemide Goal BP < 140/90 may need addition of CCB/BB if goal not achieved #Renal Osteodystrphy Continue Phos binder low phos diet Thank you Cm Torres DO
[2016-08-24] MEDS ORDERED: EPOETIN ALFA 2,000 UNITS/1 ML VIAL IVPUSH ONE ×2 (11:17→17:30)
[2016-08-24] MEDS ORDERED: VANCOMYCIN 1,000 MG in DEXTROSE 5%-WATER - 250 ML IVPB ONE ×2 (11:18→17:30)
[2016-08-24] MEDS ORDERED: CEFTAZIDIME PENTAHYDRATE 2 GM in DEXTROSE 5%-WATER - 100 ML IVPB ONE ×2 (11:19→17:30)
[2016-08-24] MEDS: INSULIN SLIDING SCALE (NOVOLOG) 1 VIAL SQ SCH ×3 (11:37→21:06)
[2016-08-24] MEDS: metroNIDAZOLE 250 MG TABLET PO SCH ×2 (13:41→21:07)
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
--- NOTE | 2016-08-24 16:18 | PN ---
Teaching Attending Note Name of Resident: Jimbo Beckford ATTENDING PHYSICIAN STATEMENT I saw and evaluated the patient. I reviewed the resident's note and discussed the case with the resident. I agree with the resident's findings and plan as documented. SUBJECTIVE:55 year old male s/p recent R TMA presenting with bleeding from right foot OBJECTIVE: Vital Signs Temperature 97.7 F 08/24/16 13:41 Pulse Rate 72 08/24/16 15:25 Respiratory Rate 18 08/24/16 15:25 Blood Pressure 170/92 08/24/16 15:25 O2 Sat by Pulse Oximetry (%) 98 08/24/16 08:12 Cardiovascular: Yes: WNL, Regular Rate and Rhythm, Bruit (Likely due to fistula) Respiratory: Yes: WNL, Regular, CTA Bilaterally Gastrointestinal: Yes: WNL, Normal Bowel Sounds, Soft Breast(s): Yes: Right (2 cm firm mobile lesion.) Musculoskeletal: Yes: WNL Extremities: Yes: Amputation (Right TMA, wrapped c/d. Recently changed by Dr. Almanzar) Edema: No Peripheral Pulses WNL: Yes CBC, BMP 08/24/16 04:48 08/24/16 04:48 ASSESSMENT AND PLAN: 1. Anemia of acute blood loss-Hgb of 7.0 on admission - 2 units PRBC -Will recheck CBC tomorrow morning -Hold plavix 2. Osteomyelitis of right foot- on tretment with IV vanco/fortaz during HD 3. ESRD on HD-//Sat -for HD today -Nephrology consult 4. Right breast nodule - OP follow up 5. HTN-Stable 6. DM -Controlled -Levemir 6 units SQ hs -Insulin sliding scale
[2016-08-24] MEDS ORDERED: EPOETIN ALFA 20,000 UNIT/1 ML VIAL IVPUSH ONE (17:30)
[2016-08-24] MEDS ORDERED: INSULIN (NOVOLOG) ASPART 100 UNITS/ML 10ML VIAL ONE (20:58)
[2016-08-24] MEDS ORDERED: INSULIN DETEMIR 100 UNITS/ML MDV SQ SCH (22:00)
[2016-08-25] MEDS: metroNIDAZOLE 250 MG TABLET PO SCH ×2 (06:03→13:44)
[2016-08-25] MEDS: INSULIN SLIDING SCALE (NOVOLOG) 1 VIAL SQ SCH ×3 (06:03→17:02)
[2016-08-25] MEDS: TORSEMIDE 20 MG TABLET (FP) PO SCH ×2 (06:03→13:44)
[2016-08-25] MEDS: CALCIUM ACETATE 667 MG CAPSULE (FP) PO SCH ×3 (07:52→17:02)
[2016-08-25 08:55] VITALS: BP 142/68; TEMP 97.8
[2016-08-25 08:56] LABS: MCH 28.3 pg (25.7-33.7); MCHC 32.8 g/dl (32.0-35.9); MEAN CELL VOLUME 86.2 fl (80-96); MEAN PLT VOLUME 7.2 fl (7.5-11.1); PLATELET COUNT 260 K/MM3 (134-434); RDW 16.9 % (11.9-15.9)
[2016-08-25 09:50] LABS: ALBUMIN 2.3 g/dl (3.4-5.0); ALK PHOS 107 U/L (45-117); ANION GAP 11 (8-16); BILIRUBIN,TOTAL 0.7 mg/dL (0.2-1.0); CALCIUM 8.5 mg/dL (8.5-10.1); CO2 31 mmol/L (21-32); GLUCOSE,RANDOM 88 mg/dL (74-106); MAGNESIUM 2.1 mg/dL (1.8-2.4); PHOSPHOROUS 3.5 mg/dL (2.5-4.9); SGOT/AST 27 U/L (15-37); SGPT/ALT 13 U/L (12-78); TOT PROT 7.1 g/dl (6.4-8.2)
[2016-08-25 10:08] LABS: CREATININE 8.1 mg/dL (0.7-1.3)
[2016-08-25] MEDS ORDERED: PT OWN MED DRAWER 7, Y5N ONE (10:34)
[2016-08-25] MEDS: MINOXIDIL 10 MG TABLET PO SCH (10:35)
--- NOTE | 2016-08-25 11:35 | DS ---
Physical Exam: SUBJECTIVE: Patient seen and examined No acute events overnight. Bleeding has stopped OBJECTIVE: Vital Signs Period Temp Pulse Resp BP Sys/Salas Pulse Ox Last 24 Hr 97.7 F-98.3 F 72-83 18-20 140-170/67-93 99-99 PHYSICAL EXAM Constitutional: Yes: Well Nourished, No Distress, Calm Eyes: Yes: WNL, Conjunctiva Clear, EOM Intact HENT: Yes: WNL, Atraumatic, Normocephalic Neck: Yes: WNL, Trachea Midline Cardiovascular: Yes: WNL, Regular Rate and Rhythm, Bruit (Likely due to fistula) Respiratory: Yes: WNL, Regular, CTA Bilaterally Gastrointestinal: Yes: WNL, Normal Bowel Sounds, Soft Breast(s): Yes: Right (2 cm firm mobile lesion.) Musculoskeletal: Yes: WNL Extremities: Yes: Amputation (Right TMA, wrapped c/d. Recently changed by Dr. Almanzar) Edema: No Peripheral Pulses WNL: Yes Peripheral Pulses: Right Dorsalis Pedis: 2+ Integumentary: Yes: WNL Wound/Incision: Yes: Clean/Dry Neurological: Yes: WNL, Alert, Oriented Psychiatric: Yes: WNL, Alert, Oriented LABS Laboratory Results - last 24 hr 08/24/16 08/24/16 08/24/16 11:36 17:30 21:05 WBC RBC Hgb Hct MCV MCH MCHC RDW Plt Count MPV Sodium Potassium Chloride Carbon Dioxide Anion Gap BUN Creatinine Creat Clearance w eGFR POC Glucometer 142 174 Random Glucose Calcium Phosphorus Magnesium Total Bilirubin AST ALT Alkaline Phosphatase Total Protein Albumin Random Vancomycin 13.447 08/25/16 08/25/16 08/25/16 06:02 08:30 08:30 WBC 8.0 RBC 3.11 L Hgb 8.8 L D Hct 26.8 L D MCV 86.2 MCH 28.3 MCHC 32.8 RDW 16.9 H Plt Count 260 MPV 7.2 L Sodium 138 Potassium 4.4 Chloride 96 L Carbon Dioxide 31 Anion Gap 11 BUN 34 H D Creatinine 8.1 H* D Creat Clearance w eGFR 6.94 POC Glucometer 68 Random Glucose 88 D Calcium 8.5 Phosphorus 3.5 D Magnesium 2.1 Total Bilirubin 0.7 D AST 27 ALT 13 D Alkaline Phosphatase 107 Total Protein 7.1 Albumin 2.3 L Random Vancomycin HOSPITAL COURSE: Date of Admission:08/24/16 Date of Discharge: 08/25/16 55 y.o. male with a history of osteomyelitis of the 4th and 5th digit of the right foot s/p TMA on 08/10 and revision of flap on 08/19 presented to the ED with profuse bleeding at sight of TMA and admitted for anemia secondary to bleeding from site of amputation. His hgb upon admission was 7.0. Patient was given 2 units of PRBC. His hgb improved to 8.8. He was evaluated by Dr. Almanzar and his wound vac was discontinued. He is currently on wet to dry dressing changes. His plavix was held during this admission and we recommended to hold it upon discharge. Patient was discharged home. He will continue to receive antibiotics (Vancomycin /Fortaz) with HD. Minutes to complete discharge: 30 Discharge Summary Reason For Visit: WOUND OPEN FOOT WITH COMPLICATION Current Active Problems Anemia (Acute) ESRD needing dialysis (Chronic) HTN (hypertension) (Chronic) Osteomyelitis of right foot (Chronic) Wound, open, foot with complication (Chronic) Condition: Stable - Instructions Diet, Activity, Other Instructions: -You were in the hospital due to bleeding at the site of your amputation. -Do not take Plavix until you speak with Dr. Almanzar or Dr. Araiza due to your bleeding risk. -Continue getting antibiotics (Vancomycin and Fortaz) with hemodialysis for a total of 6 weeks (until September 21) -Continue taking Flagyl 500mg 1 tablet three times a day for a total of 6 weeks (until September 21). -Continue all other home medications. -Do not put any weight on the right foot. -Follow up with Dr. Almanzar (jet pilot) in 1 week. Speak to him regarding when to restart your wound vac. In the meantime, continue wet to dry dressing changes at the site of your amputation. -Follow up with the surgeon (Dr. Castillo) for biopsy of the mass on your breast in 1 week. If you have chest pain, shortness of breath, or any new symptoms please come back to the hospital immediately. Referrals: Navjot Castillo MD [Staff Physician] - Vazquez Almanzar MD [Staff Physician] - Disposition: HOME - Home Medications Comprehensive Discharge Medication List: Ambulatory Orders Acetaminophen [Tylenol] 650 mg PO Q4H PRN 07/21/16 Minoxidil [Loniten -] 10 mg PO DAILY 07/21/16 Torsemide 20 mg PO BID 07/21/16 Clopidogrel Bisulfate [Plavix -] 75 mg PO DAILY #30 tablet 07/27/16 Calcium Acetate [Phoslo -] 667 mg PO TIDCM 08/09/16 Insulin (Levemir) [Levemir Flexpen -] 0 units SQ HS PRN 08/09/16 Ceftazidime Na/Dextrose,Iso [Zswqpk-Dsw-Iuidy 2 gm/50 ml] 2 gm IV TUTHSA #18 froz.piggy 08/17/16 Lancets/Blood Glucose Strips [Fora [id number] Strp-Lnct] 1 each PRN #60 combo..pkg 08/21/16 Metronidazole 500 mg PO TID #94 tablet 08/21/16 Miscellaneous Medical Supply [Outpatient Order] 1 each ASDIR #1 misc Vancomycin 1 Gram (Pre-Docked) [Vancomycin (Pre-Docked)] 1,000 mg IVPB TUTHSA This patient is new to me today: No Emergency Visit: No Critical Care patient: No - Discharge Referral Referred to [facility] No
--- NOTE | 2016-08-25 13:10 | PN ---
Progress Note (short form) - Note Progress Note: Renal Follow up for ESRD on HD Pt seen and examined at the bedside s/p dialysis yesterday no acute complaints dressing on TMA site changed and no bleeding today as per pt for discharge home today Vital Signs Temperature 97.8 F 08/25/16 08:55 Pulse Rate 83 08/25/16 08:55 Respiratory Rate 18 08/25/16 09:00 Blood Pressure 142/68 08/25/16 08:55 O2 Sat by Pulse Oximetry (%) 99 08/25/16 09:00 Intake & Output 08/22/16 08/23/16 08/24/16 08/25/16 23:59 23:59 23:59 23:59 Intake Total 610 490 Output Total 0 Balance 610 490 Weight 219 lb Gen: NAD, awake and alert CVS: RRR, no M/R Lungs: CTA, no rales or wheeze Abd: soft NT/ND Ext: 2+ RLEedema, 1+ LLE edema, Right foot in dressing, no blood seen on dressing CBC, BMP 08/25/16 08:30 08/25/16 08:30 Current Medications Calcium Acetate (Phoslo -) 667 mg PO TIDCM COUNTS INCLUDE 234 BEDS AT THE [facility] Last Admin: 08/25/16 11:50 Dose: 667 mg Insulin Aspart (Novolog Vial Sliding Scale -) 1 vial SQ [facility] COUNTS INCLUDE 234 BEDS AT THE [facility] PRN Reason: Protocol Last Admin: 08/25/16 11:19 Dose: Not Given Insulin Detemir (Levemir Vial) 6 units SQ HS COUNTS INCLUDE 234 BEDS AT THE [facility] Last Admin: 08/24/16 21:06 Dose: 6 units Metronidazole (Flagyl -) 500 mg PO TID COUNTS INCLUDE 234 BEDS AT THE [facility] Last Admin: 08/25/16 06:03 Dose: 500 mg Minoxidil (Loniten -) 10 mg PO DAILY COUNTS INCLUDE 234 BEDS AT THE [facility] Last Admin: 08/25/16 10:35 Dose: 10 mg Non-Formulary Medication (Ceftazidime Na/Dextrose,Iso [Gjkzvz-Cvq-Lqyev 2 Gm/50 Ml]) 2 gm IV TUTHSA COUNTS INCLUDE 234 BEDS AT THE [facility] Last Admin: 08/24/16 07:06 Dose: Not Given Torsemide (Demadex -) 20 mg PO BIDLASIX COUNTS INCLUDE 234 BEDS AT THE [facility] Last Admin: 08/25/16 06:03 Dose: 20 mg A/P 55 year old Gentleman with PMhx of ESRD on HD (TTS), Hypertension, DM Type 2, PVD s/p TMA s/p recent admission for non-healing TMA wound now presented with bleeding from TMA wound #Bleeding/Blood Loss Anemia pt with good response to PRBC transfusion no further bleeding at this time continue high dose EPO with outpatient HD #PVD/LE wound infection Will give Vanco and Fortaz until 09/21 #ESRD on HD no 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
[2016-08-25 13:52] VITALS: PULSE 81
[2016-08-27 00:08] LABS: HEP B SURFACE AB Reactive (.)
--- NOTE | 2016-09-01 11:15 | EKG ---
Test Reason : Blood Pressure : / mmHG Vent. Rate : 076 BPM Atrial Rate : 076 BPM P-R Int : 204 ms QRS Dur : 086 ms QT Int : 408 ms P-R-T Axes : 063 019 096 degrees QTc Int : 459 ms NORMAL SINUS RHYTHM LOW VOLTAGE QRS ABNORMAL QRS-T ANGLE, CONSIDER PRIMARY T WAVE ABNORMALITY ABNORMAL ECG WHEN COMPARED WITH ECG OF 20-JUL-2016 14:44, NO SIGNIFICANT CHANGE WAS FOUND Confirmed by RYAN PEARSON MD ([id number]) on 09/01/2016 11:15:10 AM Referred By: Confirmed By:RYAN PEARSON MD
== END 2016-08-25 18:41 | disposition home or self-care (01) | DRG 919 ==
LOC: JER 00:28 → JERBED 05:58 → J6S 08:31
PROVIDERS: ADMIT Internal Medicine; ATTEND Internal Medicine
PROC: 30233N1 Transfusion of Nonautologous Red Blood Cells into Peripheral Vein, Percutaneous Approach (ICD-10-PCS; principal; 2016-08-24)
PROC: 5A1D00Z (ICD-10-PCS; 2016-08-24)
DX: T81.89XA Other complications of procedures, not elsewhere classified, initial encounter (principal); D62 Acute posthemorrhagic anemia; Y83.5 Amputation of limb(s) as the cause of abnormal reaction of the patient, or of later complication, without mention of misadventure at the time of the procedure; N18.6 End stage renal disease; I12.0 Hypertensive chronic kidney disease with stage 5 chronic kidney disease or end stage renal disease; M86.9 Osteomyelitis, unspecified; E11.22 Type 2 diabetes mellitus with diabetic chronic kidney disease; Z99.2 Dependence on renal dialysis; Z79.4 Long term (current) use of insulin; E11.69 Type 2 diabetes mellitus with other specified complication; E11.65 Type 2 diabetes mellitus with hyperglycemia; Y92.9 Unspecified place or not applicable
CPT/HCPCS: 36415; 36430; 80048; 80053; 83735; 84100; 85027; 85610; 86704; 86706; 86708; 86803; 86850; 86900; 86901; 86922; 87340; 93005; 93010; 97116-GP; 97161-GP; 99285-25; G0480; J0885; P9038; P9058

== ENCOUNTER 2016-09-03 17:36 | Emergency (ER) | payer OTHER ==
[2016-09-03 17:44] VITALS: TEMP 97.9; BMI 27.9
--- NOTE | 2016-09-03 19:08 | PDOC ---
Attending Attestation - Resident Resident Name: Mariam Sexton - ED Attending Attestation I have performed the following: I have examined & evaluated the patient, The case was reviewed & discussed with the resident, I agree w/resident's findings & plan, Exceptions are as noted
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
[2016-09-03 19:45] VITALS: BP 180/88; PULSE 82
== END 2016-09-03 19:59 | disposition home or self-care (01) ==
LOC: JER 17:36
DX: Z89.431 Acquired absence of right foot (principal); E11.9 Type 2 diabetes mellitus without complications; N18.6 End stage renal disease; F03.90 Unspecified dementia, unspecified severity, without behavioral disturbance, psychotic disturbance, mood disturbance, and anxiety
CPT/HCPCS: 99283-25

== ENCOUNTER 2016-12-16 10:56 | Inpatient (IN) | payer OTHER ==
[2016-12-16] MEDS ORDERED: ceFAZolin SODIUM 1 GM VIAL IVPB ONE (16:45)
[2016-12-16] MEDS ORDERED: MINERAL OIL 25 ML OIL TP ONE (17:04)
[2016-12-16] MEDS ORDERED: POVIDONE-IODINE OINTMENT 10% - 28.4 GM TUBE ONE (17:39)
[2016-12-16] MEDS ORDERED: POVIDONE-IODINE OINTMENT 10% - 28.4 GM TUBE TP ONE (17:44)
[2016-12-16] MEDS ORDERED: PROMETHAZINE HCL 25 MG/1 ML VIAL IVPUSH PRN (18:04)
[2016-12-16] MEDS ORDERED: ONDANSETRON 4 MG/2 ML VIAL IVPUSH PRN (18:04)
[2016-12-16] MEDS: LABETALOL HCL 5 MG/1 ML (100MG/20 ML VIAL) IVPUSH ONE ×2 (18:05→18:15)
[2016-12-16] MEDS ORDERED: SODIUM CHLORIDE 1,000 ML IV SCH (18:15)
[2016-12-16] MEDS ORDERED: INSULIN DETEMIR 100 UNITS/ML MDV SQ PRN (20:38)
--- NOTE | 2016-12-16 20:55 | OP ---
DATE OF OPERATION: 12/16/2016 PREOPERATIVE DIAGNOSIS: A non-healing large diabetic foot ulcer, right. POSTOPERATIVE DIAGNOSIS: A non-healing large diabetic foot ulcer, right. PROCEDURE: 1. Excisional debridement of the skin, subcutaneous tissue. 2. Split-thickness skin graft, twelfth of an inch. SURGEON: Anna Weaver MD ANESTHESIA: General. HISTORY: The patient is a 55-year-old Afro [place] male with history of diabetes. Recent infection resulted in significant amputation of his toes, with a large foot ulcer. Patient has been under care of Dr. Almanzar. He is now being referred for skin grafting. Patient is on hyperbaric. PROCEDURE: The patient was brought to the operating room, transferred over to the table, where he was then given general anesthesia. Timeout was carried out. The patient was identified, including the site. First part of the procedure was taking split-thickness skin graft using a Celsa dermatome, twelfth of an inch. Graft was meshed 1-1/2 times and kept in a separate secured area. Skin had been prepped with Betadine and Hibiclens solution and draped in a standard aseptic manner. Skin grafting, split-thickness, was taken from the right thigh using a Celsa dermatome, twelfth of an inch. Graft was meshed 1-1/2 times. Debridement: Using a 10 scalpel blade, an excisional debridement was carried out of the entire periphery. Thick tissue, callous in nature, was excised down to the fascia. Good bleeding was noted. This had to be controlled with electrocautery. The rest of the ulcer was completely excised using 10 scalpel blade. Good bleeding was noted. It was controlled with electrocautery. The wound was then irrigated with normal saline solution. Grafting: Split-thickness skin graft was then applied to the entire area and surgically fixated with kait. This was followed by a dressing using Xeroform, Betadine ointment, 4 x 4's, fluffs, and a Coban compressive dressing. Donor area: Donor area excess graft was reapplied and covered with Xeroform, Betadine ointment, and Tegaderm. Patient tolerated the procedure well. He was given Ancef prior to surgery. Previous reports were positive for MRSA. Next time, patient will be admitted under hospitalist and managed. He is diabetic and also has kidney disease and has been on dialysis. Patient will be admitted until the graft is secured. ANNA WEAVER M.D. [id number]
[2016-12-16] MEDS: CALCIUM ACETATE 667 MG CAPSULE (FP) PO SCH (21:14)
[2016-12-16] MEDS: CLOPIDOGREL BISULFATE 75 MG TABLET (FP) PO SCH (21:33)
[2016-12-16] MEDS: MINOXIDIL 10 MG TABLET PO SCH (21:37)
[2016-12-16] MEDS: TORSEMIDE 100 MG TABLET PO SCH (21:37)
[2016-12-16] MEDS: INSULIN DETEMIR 100 UNITS/ML MDV SQ SCH (21:54)
[2016-12-16] MEDS: ACETAMINOPHEN 325 MG TABLET (FP) PO PRN (21:58)
[2016-12-16] MEDS ORDERED: CEFAZOLIN 1 GM in DEXTROSE 5%-WATER - 50 ML IVPB SCH (22:00)
[2016-12-16] MEDS ORDERED: PT OWN MED DRAWER 7, Y5N ONE (22:03)
[2016-12-17] MEDS: ACETAMINOPHEN 325 MG TABLET (FP) PO PRN ×4 (02:33→21:15)
[2016-12-17 06:05] VITALS: BMI 26.7
--- NOTE | 2016-12-17 06:44 | HP ---
CHIEF COMPLAINT: PCP: Dr Banegas HISTORY OF PRESENT ILLNESS: This is a 55 yo M with PMH of DM and ESRD (on HD TTSat) who presents POD 1 s/p amputation of toes on R foot with skin graft from lateral R thigh secondary to infected ulcer MRSA +. Patients last HD was on . He is currently complaining of shooting 5/5 pain down his R leg, alleviated by tylenol. He is afebrile and hemodynamically stable. There were no acute events overnight. He denies CP, SOB, cough, sore throat, abd pain, n/v, dysuria. He [facility]. SHe plans on placing a wound vac. Recent Travel: denies PAST MEDICAL HISTORY: as above PAST SURGICAL HISTORY: as above Social History:lives with girlfriend. has vns Smoking: denies Alcohol: denies Drugs: denies Family History: DM HTN Allergies No Known Drug Allergies Allergy (Verified 12/13/16 16:56) HOME MEDICATIONS: Home Medications Medication Instructions Recorded Acetaminophen [Tylenol] 650 mg PO Q4H PRN 07/21/16 Minoxidil [Loniten -] 10 mg PO DAILY 07/21/16 Torsemide 100 mg PO DAILY 07/21/16 Calcium Acetate [Phoslo -] 667 mg PO TIDCM 08/09/16 Insulin (Levemir) [Levemir Flexpen 6 units SQ HS PRN 08/09/16 -] Clopidogrel Bisulfate [Plavix -] 75 mg PO DAILY #30 tablet 11/10/16 REVIEW OF SYSTEMS CONSTITUTIONAL: Absent: fever, chills HEENT: Absent: rhinorrhea, nasal congestion, throat pain, throat swelling, difficulty swallowing CARDIOVASCULAR: Absent: chest pain, syncope, palpitations, irregular heart rate, lightheadedness , peripheral edema RESPIRATORY: Absent: cough, shortness of breath, dyspnea with exertion GASTROINTESTINAL: Absent: abdominal pain, abdominal distension, nausea, vomiting, diarrhea, constipation, melena, hematochezia GENITOURINARY: Absent: dysuria MUSCULOSKELETAL: Absent: back pain, neck pain SKIN: Absent: rash, itching, pallor HEMATOLOGIC/IMMUNOLOGIC: Absent: easy bleeding, easy bruising, frequent infections ENDOCRINE: Absent: unexplained weight gain, unexplained weight loss NEUROLOGIC: Absent: headache, focal weakness or paresthesias PSYCHIATRIC: Absent: anxiety, depression PHYSICAL EXAMINATION Vital Signs - 24 hr 12/16/16 12/16/16 12/16/16 11:33 11:37 18:00 Temperature 98.2 F 98.4 F Pulse Rate 86 82 Respiratory 16 14 Rate Blood Pressure 154/84 209/86 O2 Sat by Pulse 98 97 Oximetry (%) 12/16/16 12/16/16 12/16/16 18:15 18:30 18:45 Temperature Pulse Rate 68 66 67 Respiratory 16 14 14 Rate Blood Pressure 183/78 171/72 173/74 O2 Sat by Pulse 100 100 100 Oximetry (%) 12/16/16 12/16/16 12/16/16 19:00 19:15 19:30 Temperature Pulse Rate 66 68 70 Respiratory 16 16 16 Rate Blood Pressure 166/71 167/73 162/71 O2 Sat by Pulse 100 95 96 Oximetry (%) 12/16/16 12/16/16 12/16/16 19:47 21:00 22:00 Temperature 98.0 F 97.7 F Pulse Rate 71 70 Respiratory 16 20 Rate Blood Pressure 156/72 149/75 O2 Sat by Pulse 96 96 Oximetry (%) 12/17/16 12/17/16 12/17/16 02:00 06:02 06:05 Temperature 98.3 F 98.3 F Pulse Rate 81 72 Respiratory 18 18 Rate Blood Pressure 153/77 150/78 O2 Sat by Pulse 96 Oximetry (%) GENERAL: Awake, alert, and fully oriented, in no acute distress. HEAD: Normal with no signs of trauma. EYES: Pupils equal, round and reactive to light, extraocular movements intact, sclera anicteric, conjunctiva clear. No lid lag. EARS, NOSE, THROAT: Moist mucous membranes. NECK: supple LUNGS: Breath sounds equal, clear to auscultation bilaterally. HEART: Regular rate and rhythm, normal S1 and S2 ABDOMEN: Soft, nontender, not distended, normoactive bowel sounds MUSCULOSKELETAL:No CVA tenderness. RLE lateral flap covered in sangineous dressing. toes wrapped in clean dressing. UPPER EXTREMITIES: 2+ pulses, warm, well-perfused. No peripheral edema. LOWER EXTREMITIES: 2+ pulses, warm, well-perfused. No calf tenderness. No peripheral edema. NEUROLOGICAL: Cranial nerves II-XII grossly intact. Normal speech. PSYCHIATRIC: Cooperative. Good eye contact. Appropriate mood and affect. SKIN: Warm, dry Laboratory Results - last 24 hr 12/16/16 12/16/16 12/16/16 11:24 11:48 21:14 Potassium 4.0 POC Glucometer 143 227 12/17/16 05:58 Potassium POC Glucometer 164 ASSESSMENT/PLAN: This is a 55 yo M with PMH of DM and ESRD (on HD TTSat) who presents POD 1 s/p amputation of toes on R foot with skin graft from lateral R thigh secondary to infected ulcer MRSA +. Patients last HD was on . R foot ulcer POD 1 s/p amputation of toes on R foot with skin graft -patient afebrile, hemodynamically stable -wound care per plastics, plan for wound vac -tylenol, gabapentin for pain -resume plavix -SCD on non-affected limb -ns @ 42 IDDM -BGM ACHS -Levemir 6 u HS -ISS HTN -resume labetalol, torsemide ESRD -resume HD -renal consult FEN NS@42 lytes stable renal diet Dispo: adm med millie . Visit type - Emergency Visit Emergency Visit: Yes Care time: The patient presented to the Emergency Department on the above date and was hospitalized for further evaluation of their emergent condition. - New Patient This patient is new to me today: Yes Date on this admission: 12/17/16 - Critical Care Critical Care patient: No
--- NOTE | 2016-12-17 06:52 | PN ---
Teaching Attending Note Name of Resident: Marysol Dickson ATTENDING PHYSICIAN STATEMENT I saw and evaluated the patient. I reviewed the resident's note and discussed the case with the resident. I agree with the resident's findings and plan as documented. SUBJECTIVE: 55 M with h/o DM2, HTN, and right foot ulcer with MRSA admitted for right foot debridement and graft s/p forefoot amputation. Patient seen postop and c/o intermittent shooting pain on affected foot. Patient has been on wound vac at home and is managed by VNS and wound care team. Denies any chest pain, SOB, fever, chills, nausea or vomiting. FMH: DM2 SH: denies smoking drinking or drug use ROS: All systems reviewed and nl other than mentioned in HPI OBJECTIVE: Patient is alert and in mild discomfort, cooperative NC, AT, PERRLA, EOMI, MMM CVS: RRR, S1, S2 Lungs: Clear air entry Abd: soft , NT, ND, BS+ Ext: right lateral thigh wound s/p graft and right posterior foot bandaged no swelling good pulses ASSESSMENT AND PLAN: Right foot s/p debridement and skin graft- follow surgery consult. Pain managed with tylenol prn and will add gabapentin for neuropathic like pain. Contact precautions. DM2 RISS HTN - continue home medications DVT prophylaxis
[2016-12-17] MEDS ORDERED: INSULIN (NOVOLOG) ASPART 100 UNITS/ML 10ML VIAL ONE ×3 (07:25→21:10)
[2016-12-17] MEDS: INSULIN SLIDING SCALE (NOVOLOG) 1 VIAL SQ SCH ×4 (07:29→21:15)
[2016-12-17] MEDS: CALCIUM ACETATE 667 MG CAPSULE (FP) PO SCH ×3 (08:25→16:29)
[2016-12-17 08:36] LABS: MCH 26.7 pg (25.7-33.7); MCHC 32.4 g/dl (32.0-35.9); MEAN CELL VOLUME 82.5 fl (80-96); MEAN PLT VOLUME 7.3 fl (7.5-11.1); PLATELET COUNT 176 K/MM3 (134-434); RDW 20.6 % (11.9-15.9); WHITE BLOOD COUNT 6.4 K/mm3 (4.0-10.0)
[2016-12-17 09:18] LABS: ALBUMIN 2.8 g/dl (3.4-5.0); ANION GAP 11 (8-16); CALCIUM 8.1 mg/dL (8.5-10.1); CO2 28 mmol/L (21-32); GLUCOSE,RANDOM 144 mg/dL (74-106); SGOT/AST 34 U/L (15-37); SGPT/ALT 55 U/L (12-78)
[2016-12-17 09:29] LABS: ALK PHOS 160 U/L (45-117); BILIRUBIN,TOTAL 0.6 mg/dL (0.2-1.0); TOT PROT 7.4 g/dl (6.4-8.2)
[2016-12-17 09:57] LABS: CREATININE 8.8 mg/dL (0.7-1.3)
[2016-12-17] MEDS ORDERED: VANCOMYCIN 1,000 MG in DEXTROSE 5%-WATER - 250 ML IVPB ONE (10:00)
[2016-12-17] MEDS ORDERED: PT OWN MED DRAWER 7, Y5N ONE (10:37)
[2016-12-17] MEDS: MINOXIDIL 10 MG TABLET PO SCH (10:40)
[2016-12-17] MEDS: GABAPENTIN 300 MG CAPSULE (FP) PO SCH ×2 (10:40→21:15)
[2016-12-17] MEDS: TORSEMIDE 100 MG TABLET PO SCH (10:41)
--- NOTE | 2016-12-17 11:22 | PN ---
Progress Note (short form) - Note Progress Note: ID consult dictated imp/reccd 55 year old man esrd/HD seen in he had a right TMA 08/10 for a diabetic foot infection the stump developed gangrene and he underwent debridement 08/19 he refused BKA and was treated with vanco/fortaz/flagyl for 6 weeks and HBO and wound care he never came back to us for followup his antibiotics have been completed and he is s/p skin flap by Dr Hunt 12/16 he received vancomycin today for prior history of MRSA the foot is dressed with post op dressing the thigh skin graft site dressing is also postop and bloody he feels well and has no complaints no fevers or chills MRSA contact isolation no need for further antibiotics unless plastic surgery feels differently please let us know if you need us back to follow the patient Problem List - Problems (1) Osteomyelitis of right foot Code(s): M86.9 - OSTEOMYELITIS, UNSPECIFIED (2) MRSA (methicillin resistant Staphylococcus aureus) colonization Code(s): Z22.322 - CARRIER OR SUSPECTED CARRIER OF METHICILLIN RESIS STAPH (3) ESRD needing dialysis Code(s): N18.6 - END STAGE RENAL DISEASE
--- NOTE | 2016-12-17 14:15 | PN ---
Progress Note (short form) - Note Progress Note: ANESTHESIOLOGY POST-OP CHECK 55M s/p right foot debridement and skin graft under general anesthesia, POD # 1. No acute complaints, denies N/V, pain 5/10 and tolerable. Vital Signs Temperature 98.6 F 12/17/16 14:05 Pulse Rate 90 12/17/16 14:05 Respiratory Rate 16 12/17/16 14:05 Blood Pressure 148/78 12/17/16 14:05 O2 Sat by Pulse Oximetry (%) 96 12/17/16 06:05 Active Medications Acetaminophen (Tylenol -) 650 mg PO Q4H PRN PRN Reason: Pain Last Admin: 12/17/16 10:41 Dose: 650 mg Calcium Acetate (Phoslo -) 667 mg PO TIDCM [facility] Last Admin: 12/17/16 11:39 Dose: 667 mg Fentanyl (Sublimaze Injection -) 50 mcg IVPUSH [id number] PRN PRN Reason: PAIN Stop: 12/19/16 18:05 Gabapentin (Neurontin -) 300 mg PO BID [facility] Last Admin: 12/17/16 10:40 Dose: 300 mg Heparin Sodium (Porcine) (Heparin -) 5,000 unit SQ TID [facility] Insulin Aspart (Novolog Vial Sliding Scale -) 1 vial SQ ACH[facility] PRN Reason: Protocol Last Admin: 12/17/16 11:42 Dose: Not Given Insulin Detemir (Levemir Vial) 6 units SQ HS [facility] Last Admin: 12/16/16 21:54 Dose: 6 units Minoxidil (Loniten -) 10 mg PO DAILY [facility] Last Admin: 12/17/16 10:40 Dose: 10 mg Torsemide (Demadex -) 100 mg PO DAILY [facility] Last Admin: 12/17/16 10:41 Dose: 100 mg GEn: awake, alert No apparent anesthesia complications. Continue management as per primary team.
--- NOTE | 2016-12-17 16:15 | CON.NEP ---
Consult Consult Specialty:: Nephrology Referred by:: Dr. Euceda Reason for Consultation:: ESRD on Hd - History of Present Illness Chief Complaint: s/p skin graft procedure History of Present Illness: This is a 55 year old gentleman with PMhx of ESRD on HD (TTS), Hypertension, DM , PVD s/p amputation now admitted for skin graft procedure. Pt with no acute complaints. Last dialysis was yesterday as a outpatient w/o complication. No sob , chest pain. Pain is well controlled. Has dressing on right foot and thigh. No fever, chills. No pain in foot. Has been gettig hyperbaric O2 Tx. - History Source History Provided By: Patient Limitations to Obtaining History: No Limitations - Past Medical History Cardio/Vascular: Yes: HTN Gastrointestinal: Yes: Other (vomiting) Renal/: Yes: Renal Failure, Hemodialysis (on maintenance HD 2/2 hypertensive nephrosclerosis since 2013; on transplant list @ [place]) Infectious Disease: Yes: Other (infected foot ulcers) Musculoskeletal: Yes: Other (remote hx of L foot fracture/sports trauma ) Endocrine: Yes: Diabetes Mellitus - Past Surgical History Past Surgical History: Yes: None, Amputation (TMA on 08/10, Revision on 08/21) - Alcohol/Substance Use Hx Alcohol Use: No History of Substance Use: reports: None - Smoking History Smoking history: Never smoked Have you smoked in the past 12 months: No Aproximately how many cigarettes per day: 0 - Social History Usual Living Arrangement: With Significant Other ADL: Independent Occupation: not working History of Recent Travel: Yes ([facility]) Home Medications - Allergies Allergies/Adverse Reactions: Allergies Allergy/AdvReac Type Severity Reaction Status Date / Time No Known Drug Allergies Allergy Verified 12/13/16 16:56 - Home Medications Home Medications: Ambulatory Orders Acetaminophen [Tylenol] 650 mg PO Q4H PRN 07/21/16 Minoxidil [Loniten -] 10 mg PO DAILY 07/21/16 Torsemide 100 mg PO DAILY 07/21/16 Calcium Acetate [Phoslo -] 667 mg PO TIDCM 08/09/16 Insulin (Levemir) [Levemir Flexpen -] 6 units SQ HS PRN 08/09/16 Clopidogrel Bisulfate [Plavix -] 75 mg PO DAILY #30 tablet 11/10/16 Family Disease History - Family Disease History Family Disease History: Diabetes: Father (HTN), Mother (HTN), Heart Disease: Father, Mother Review of Systems - Review of Systems Constitutional: reports: No Symptoms Eyes: reports: No Symptoms HENT: reports: No Symptoms Neck: reports: No Symptoms Cardiovascular: reports: No Symptoms Respiratory: reports: SOB on Exertion Gastrointestinal: reports: No Symptoms Genitourinary: reports: No Symptoms Musculoskeletal: reports: No Symptoms Neurological: reports: No Symptoms Nephrology Consult - Height Height: 5 ft 10 in - Weight Weight: 186 lb 7 oz - BMI Body Mass Index (BMI): 26.7 - Lab Results CBC,BMP: CBC, BMP 12/17/16 07:12 12/17/16 07:12 Anion Gap: Anion Gap Anion Gap 11 (8-16) 12/17/16 07:12 - Physical Examination Vital Signs: Vital Signs Temperature 98.6 F 12/17/16 14:05 Pulse Rate 90 12/17/16 14:05 Respiratory Rate 16 12/17/16 14:05 Blood Pressure 148/78 12/17/16 14:05 O2 Sat by Pulse Oximetry (%) 97 12/17/16 09:00 Constitutional: Yes: Well Nourished, No Distress Eyes: Yes: Conjunctiva Clear HENT: Yes: Atraumatic Neck: Yes: Supple Cardiovascular: Yes: Regular Rate and Rhythm Respiratory: Yes: Regular, CTA Bilaterally Gastrointestinal: Yes: Normal Bowel Sounds, Soft Extremities: Yes: Other (right foot in dressing, clean and intact, left thigh with dressing, bloody). No: Cold, Cool, Cyanosis Neurological: Yes: Alert, Oriented Problem List - Problems (1) Anemia in ESRD (end-stage renal disease) Code(s): N18.6 - END STAGE RENAL DISEASE D63.1 - ANEMIA IN CHRONIC KIDNEY DISEASE (2) ESRD (end stage renal disease) Code(s): N18.6 - END STAGE RENAL DISEASE (3) Osteomyelitis of right foot Code(s): M86.9 - OSTEOMYELITIS, UNSPECIFIED Assessment/Plan 55 year old gentleman with PMhx of ESRD on HD (TTS), Hypertension, DM, PVD s/p amputation now admitted for skin graft procedure. #PVD s/p Skin graft Plastic Surgery follow up pain control wound care #ESRD on HD for dialysis tomorrow Renal diet Fluid restriction of 1.2 L dialy dose all meds for intermittent HD #Hypertension continue Minoxidil and Torsemide #Renal Osteodystrophy continue Phoslo trend phos levels #CKD related anemia continue BRENT with HD Thank you Cm Torres DO Current Medications Acetaminophen (Tylenol -) 650 mg PO Q4H PRN PRN Reason: Pain Last Admin: 12/17/16 10:41 Dose: 650 mg Calcium Acetate (Phoslo -) 667 mg PO TIDCM [facility] Last Admin: 12/17/16 11:39 Dose: 667 mg Fentanyl (Sublimaze Injection -) 50 mcg IVPUSH [id number] PRN PRN Reason: PAIN Stop: 12/19/16 18:05 Gabapentin (Neurontin -) 300 mg PO BID [facility] Last Admin: 12/17/16 10:40 Dose: 300 mg Heparin Sodium (Porcine) (Heparin -) 5,000 unit SQ TID [facility] Insulin Aspart (Novolog Vial Sliding Scale -) 1 vial SQ ACHS [facility] PRN Reason: Protocol Last Admin: 12/17/16 11:42 Dose: Not Given Insulin Detemir (Levemir Vial) 6 units SQ HS [facility] Last Admin: 12/16/16 21:54 Dose: 6 units Minoxidil (Loniten -) 10 mg PO DAILY [facility] Last Admin: 12/17/16 10:40 Dose: 10 mg Torsemide (Demadex -) 100 mg PO DAILY [facility] Last Admin: 12/17/16 10:41 Dose: 100 mg
[2016-12-17] MEDS: HEPARIN NA (PORCINE) 5,000 UNITS/ML 1ML VIAL SQ SCH ×2 (16:27→21:16)
--- NOTE | 2016-12-17 16:35 | CONSULT ---
Consult Consult Specialty:: Plastic surgery Referred by:: Dr Kinsey Swain Reason for Consultation:: Patient known for Diabetic Foot ulcer Right on HBO, underwent Split skin graft 12/16/16 - History Source History Provided By: Patient - Past Medical History Cardio/Vascular: Yes: HTN Gastrointestinal: Yes: Other (vomiting) Renal/: Yes: Renal Failure, Hemodialysis (on maintenance HD 2/2 hypertensive nephrosclerosis since 2013; on transplant list @ [place]) Infectious Disease: Yes: Other (infected foot ulcers) Musculoskeletal: Yes: Other (remote hx of L foot fracture/sports trauma ) Endocrine: Yes: Diabetes Mellitus - Past Surgical History Past Surgical History: Yes: None, Amputation (TMA on 08/10, Revision on 08/21) - Alcohol/Substance Use Hx Alcohol Use: No History of Substance Use: reports: None - Smoking History Smoking history: Never smoked Have you smoked in the past 12 months: No Aproximately how many cigarettes per day: 0 - Social History Usual Living Arrangement: With Significant Other ADL: Independent Occupation: not working History of Recent Travel: Yes ([facility]) Home Medications - Allergies Allergies/Adverse Reactions: Allergies Allergy/AdvReac Type Severity Reaction Status Date / Time No Known Drug Allergies Allergy Verified 12/13/16 16:56 - Home Medications Home Medications: Ambulatory Orders Acetaminophen [Tylenol] 650 mg PO Q4H PRN 07/21/16 Minoxidil [Loniten -] 10 mg PO DAILY 07/21/16 Torsemide 100 mg PO DAILY 07/21/16 Calcium Acetate [Phoslo -] 667 mg PO TIDCM 08/09/16 Insulin (Levemir) [Levemir Flexpen -] 6 units SQ HS PRN 08/09/16 Clopidogrel Bisulfate [Plavix -] 75 mg PO DAILY #30 tablet 11/10/16 Family Disease History - Family Disease History Family Disease History: Diabetes: Father (HTN), Mother (HTN), Heart Disease: Father, Mother Physical Exam Vital Signs: Vital Signs Temperature 98.6 F 12/17/16 14:05 Pulse Rate 90 12/17/16 14:05 Respiratory Rate 16 12/17/16 14:05 Blood Pressure 148/78 12/17/16 14:05 O2 Sat by Pulse Oximetry (%) 97 12/17/16 09:00 Labs: CBC, BMP 12/17/16 07:12 12/17/16 07:12 Assessment/Plan Post Op day 1 Awake alert seen in bed No c/o pain Donor site saturated : Outer dressing removed , zeroform left in place, no infection Right foot dressing left in place Patient requests sitting in Recliner...advised against lower the foot, will affect skin graft and possible loss, states he understands No dangling of foot Possible VAC application next week
[2016-12-17] MEDS: CLOPIDOGREL BISULFATE 75 MG TABLET (FP) PO SCH (16:58)
--- NOTE | 2016-12-17 19:25 | PN ---
Teaching Attending Note Name of Resident: Suad Caceres ATTENDING PHYSICIAN STATEMENT I saw and evaluated the patient. I reviewed the resident's note and discussed the case with the resident. I agree with the resident's findings and plan as documented. SUBJECTIVE: seen at 11:30 no fever or chills. feels good OBJECTIVE: NAD Cv: RRR Lungs: CTAB Ext: R foot with surgical dressing up to ankle . edema on R leg. R lateral thigh with a dressing saturated with blood. L LE with no edema or erythema., dry scaly skin on L foot ASSESSMENT AND PLAN: 55 y/o man with h/o HTN, ESRD adn IDDM , R foot OM s/p TMA due to MRSA infections , who presented for a flap reconstruction 1- L foot wound with flap : - surgical dressing change per Sx - DVT px - appreciate ID recs. last cx was + for Coag Neg , but no MRSA . No need for Abx 2- h/o PVD : resume plavix 3- H/o ESRD : cont HD per schedule appreciate renal input 4- DM : cont levemir and SSI .5- HTN: cont minoxidile HLOC
[2016-12-17] MEDS: INSULIN DETEMIR 100 UNITS/ML MDV SQ SCH (21:16)
--- NOTE | 2016-12-17 21:39 | PN ---
Physical Exam: SUBJECTIVE: Patient seen and examined. Pt denies passing gas or having a bowel movement yet, s/p surgery. Pt denies fever, chills. No events overnight. OBJECTIVE: Vital Signs Period Temp Pulse Resp BP Sys/Salas Pulse Ox Last 24 Hr 97.8 F-98.6 F 70-90 16-18 148-166/77-91 96-97 GENERAL: The patient is awake, alert, and fully oriented, in no acute distress. NECK: (+) JVD, supple, trachea midline. LUNGS: Breath sounds equal, clear to auscultation bilaterally, no wheezes, no crackles, no accessory muscle use. HEART: Regular rate and rhythm, S1, S2 without murmur, rub or gallop. ABDOMEN: Soft, nontender, nondistended, normoactive bowel sounds, no guarding, no rebound. EXTREMITIES: Right LE dressing in place. 1+ edema to Right LE. Right lateral thigh with a blood soaked dressing in place. Left LE sans edema, erythema, tenderness. PSYCH: Normal mood, normal affect. SKIN: Warm, dry, normal turgor, no rashes or lesions noted Laboratory Results - last 24 hr 12/16/16 12/17/16 12/17/16 21:14 05:58 07:12 WBC RBC Hgb Hct MCV MCH MCHC RDW Plt Count MPV Sodium 136 Potassium 4.9 D Chloride 97 L Carbon Dioxide 28 Anion Gap 11 BUN 73 H D Creatinine 8.8 H* Creat Clearance w eGFR 6.15 POC Glucometer 227 164 Random Glucose 144 H D Hemoglobin A1c % Calcium 8.1 L Total Bilirubin 0.6 AST 34 D ALT 55 D Alkaline Phosphatase 160 H D Total Protein 7.4 Albumin 2.8 L D 12/17/16 12/17/16 12/17/16 07:12 07:12 11:41 WBC 6.4 RBC 4.02 D Hgb 10.7 L D Hct 33.2 L D MCV 82.5 MCH 26.7 MCHC 32.4 RDW 20.6 H D Plt Count 176 D MPV 7.3 L Sodium Potassium Chloride Carbon Dioxide Anion Gap BUN Creatinine Creat Clearance w eGFR POC Glucometer 147 Random Glucose Hemoglobin A1c % 6.8 H D Calcium Total Bilirubin AST ALT Alkaline Phosphatase Total Protein Albumin 12/17/16 16:30 WBC RBC Hgb Hct MCV MCH MCHC RDW Plt Count MPV Sodium Potassium Chloride Carbon Dioxide Anion Gap BUN Creatinine Creat Clearance w eGFR POC Glucometer 152 Random Glucose Hemoglobin A1c % Calcium Total Bilirubin AST ALT Alkaline Phosphatase Total Protein Albumin Active Medications Generic Name Dose Route Start Last Admin Trade Name Freq PRN Reason Stop Dose Admin Acetaminophen 650 mg 12/16/16 20:38 12/17/16 17:10 Tylenol - PO 650 mg Q4H PRN Administration Pain Calcium Acetate 667 mg 12/16/16 20:45 12/17/16 16:29 Phoslo - PO 667 mg TIDCM MONIK Administration Clopidogrel Bisulfate 75 mg 12/18/16 10:00 Plavix - PO DAILY MON[facility] Epoetin Alexander 6,000 units 12/18/16 06:00 Epogen - IVPUSH 12/18/16 06:01 ONCE ONE Fentanyl 50 mcg 12/16/16 18:04 Sublimaze Injection - IVPUSH 12/19/16 18:05 [id number] PRN PAIN Gabapentin 300 mg 12/17/16 10:00 12/17/16 10:40 Neurontin - PO 300 mg BID MONIK Administration Heparin Sodium (Porcine) 5,000 unit 12/17/16 14:00 12/17/16 16:27 Heparin - SQ 5,000 unit TID MONIK Administration Insulin Aspart 1 vial 12/17/16 07:00 12/17/16 16:31 Novolog Vial Sliding Scale - SQ 2 units ACHS MONIK Administration Protocol Insulin Detemir 6 units 12/16/16 22:00 12/16/16 21:54 Levemir Vial SQ 6 units HS [facility]IK Administration Minoxidil 10 mg 12/16/16 20:45 12/17/16 10:40 Loniten - PO 10 mg DAILY MONIK Administration Torsemide 100 mg 12/16/16 20:45 12/17/16 10:41 Demadex - PO 100 mg DAILY [facility] Administration ASSESSMENT/PLAN: 55yo M with PMH DM, ESRD (wtih HD T//Tue), PVD, and htn, presenting s/p flap reconstruction from Right lateral thigh to Right TMA. 1) Right foot post-TMA with flap - POD 1 - ID (Dr. Baez) recs appreciated: no need for further antibiotics at this time - dressing change per Sx - continue Neurontin and Tylenol for pain - Plastic Surgery (Dr. Hunt) recs appreciated: - no dangling foot, completely non-weight bearing - possible wound vac application next week - f/u wound culture 2) PVD - resume Plavix 3) ESRD - Nephrology (Dr. Torres) recs appreciated: - dialysis tomorrow - continue PhosLo 4) htn - continue Minoxidil and Torsemide 5) DM - BGM ACHS - Novolog SSI - Levemir 6U SQ HS - HgbA1c 6.8 6) FEN - Fluids: no IVFs, 1.2 L fluid restriction per Nephrology - Electrolytes: wnl, continue to monitor - Nutrition: renal diet 7) DVT Prophylaxis - Heparin 5,000U SQ TID Visit type - Emergency Visit Emergency Visit: Yes ED Registration Date: 12/16/16 Care time: The patient presented to the Emergency Department on the above date and was hospitalized for further evaluation of their emergent condition. - New Patient This patient is new to me today: Yes Date on this admission: 12/17/16 - Critical Care Critical Care patient: No
[2016-12-18] MEDS: INSULIN SLIDING SCALE (NOVOLOG) 1 VIAL SQ SCH ×4 (06:35→21:33)
[2016-12-18] MEDS: HEPARIN NA (PORCINE) 5,000 UNITS/ML 1ML VIAL SQ SCH ×3 (06:35→21:32)
[2016-12-18] MEDS: CALCIUM ACETATE 667 MG CAPSULE (FP) PO SCH ×3 (08:00→18:46)
[2016-12-18] MEDS ORDERED: PT OWN MED DRAWER 7, Y5N ONE ×2 (09:17→18:43)
[2016-12-18] MEDS: ACETAMINOPHEN 325 MG TABLET (FP) PO PRN ×2 (09:19→18:47)
[2016-12-18] MEDS: MINOXIDIL 10 MG TABLET PO SCH (09:22)
--- NOTE | 2016-12-18 10:02 | PN ---
Progress Note (short form) - Note Progress Note: Renal follow up for ESRD on HD Pt seen and examined at the bedside no acute complaints no sob, chest pain, abd pain, N/V/D Vital Signs Temperature 97.9 F 12/18/16 08:00 Pulse Rate 74 12/18/16 08:00 Respiratory Rate 18 12/18/16 08:00 Blood Pressure 202/90 12/18/16 08:00 O2 Sat by Pulse Oximetry (%) 97 12/17/16 21:00 Intake & Output 12/15/16 12/16/16 12/17/16 12/18/16 23:59 23:59 23:59 23:59 Intake Total 100 1250 300 Output Total 100 Balance 0 1250 300 Weight 186 lb 7 oz 195 lb 5 oz NAD awake and alert RRR CTA soft NT/ND Right thigh dressing, right foot dressing in place CBC, BMP 12/17/16 07:12 12/17/16 07:12 Current Medications Acetaminophen (Tylenol -) 650 mg PO Q4H PRN PRN Reason: Pain Last Admin: 12/18/16 09:19 Dose: 650 mg Calcium Acetate (Phoslo -) 667 mg PO TIDCM [facility] Last Admin: 12/18/16 08:00 Dose: 667 mg Clopidogrel Bisulfate (Plavix -) 75 mg PO DAILY [facility] Epoetin Alexander (Epogen -) 6,000 units IVPUSH ONCE ONE Stop: 12/18/16 06:01 Fentanyl (Sublimaze Injection -) 50 mcg IVPUSH [id number] PRN PRN Reason: PAIN Stop: 12/19/16 18:05 Gabapentin (Neurontin -) 300 mg PO BID [facility] Last Admin: 12/17/16 21:15 Dose: 300 mg Heparin Sodium (Porcine) (Heparin -) 5,000 unit SQ TID [facility] Last Admin: 12/18/16 06:35 Dose: 5,000 unit Insulin Aspart (Novolog Vial Sliding Scale -) 1 vial SQ ACHS [facility] PRN Reason: Protocol Last Admin: 12/18/16 06:35 Dose: Not Given Insulin Detemir (Levemir Vial) 6 units SQ HS [facility] Last Admin: 12/17/16 21:16 Dose: 6 units Minoxidil (Loniten -) 10 mg PO BID [facility] Torsemide (Demadex -) 100 mg PO DAILY [facility] Last Admin: 12/17/16 10:41 Dose: 100 mg 55 year old gentleman with PMhx of ESRD on HD (TTS), Hypertension, DM, PVD s/p amputation now admitted for skin graft procedure. #PVD s/p Skin graft Plastic Surgery follow up pain control wound care #ESRD on HD HD today with goal UF of 3L as tolerated #Hypertension continue Minoxidil BID and Torsemide #Renal Osteodystrophy continue Phoslo trend phos levels #CKD related anemia continue BRENT with HD Thank you Cm Torres DO Problem List - Problems (1) Anemia in ESRD (end-stage renal disease) Code(s): N18.6 - END STAGE RENAL DISEASE D63.1 - ANEMIA IN CHRONIC KIDNEY DISEASE (2) ESRD (end stage renal disease) Code(s): N18.6 - END STAGE RENAL DISEASE (3) Osteomyelitis of right foot Code(s): M86.9 - OSTEOMYELITIS, UNSPECIFIED
--- NOTE | 2016-12-18 11:28 | PN ---
Physical Exam: SUBJECTIVE: Patient seen and examined at bedside no complaints feels well pain well controlled OBJECTIVE: Vital Signs Period Temp Pulse Resp BP Sys/Salas Pulse Ox Last 24 Hr 97.7 F-98.6 F 70-90 16-18 148-202/62-91 97-98 GENERAL: The patient is awake, alert, and fully oriented, in no acute distress. LUNGS: Breath sounds equal, clear to auscultation bilaterally, no wheezes, no crackles, no accessory muscle use. HEART: Regular rate and rhythm, S1, S2 without murmur, rub or gallop. ABDOMEN: Soft, nontender, nondistended, normoactive bowel sounds, no guarding, no rebound. EXTREMITIES: Right LE dressing in place. 2+ edema to Right LE. Right lateral thigh Dressing C/D/I PSYCH: Normal mood, normal affect. SKIN: Warm, dry, normal turgor, no rashes or lesions noted Laboratory Results - last 24 hr 12/17/16 12/17/16 12/17/16 11:41 16:30 21:12 POC Glucometer 147 152 183 12/18/16 05:54 POC Glucometer 132 Active Medications Generic Name Dose Route Start Last Admin Trade Name Freq PRN Reason Stop Dose Admin Acetaminophen 650 mg 12/16/16 20:38 12/18/16 09:19 Tylenol - PO 650 mg Q4H PRN Administration Pain Calcium Acetate 667 mg 12/16/16 20:45 12/18/16 08:00 Phoslo - PO 667 mg TIDCM MONIK Administration Clopidogrel Bisulfate 75 mg 12/18/16 10:00 Plavix - PO DAILY [facility] Epoetin Alexander 6,000 units 12/18/16 06:00 Epogen - IVPUSH 12/18/16 06:01 ONCE ONE Fentanyl 50 mcg 12/16/16 18:04 Sublimaze Injection - IVPUSH 12/19/16 18:05 [id number] PRN PAIN Gabapentin 300 mg 12/17/16 10:00 12/17/16 21:15 Neurontin - PO 300 mg BID [facility] Administration Heparin Sodium (Porcine) 5,000 unit 12/17/16 14:00 12/18/16 06:35 Heparin - SQ 5,000 unit TID [facility] Administration Insulin Aspart 1 vial 12/17/16 07:00 12/18/16 06:35 Novolog Vial Sliding Scale - SQ Not Given ACHS [facility] Protocol Insulin Detemir 6 units 12/16/16 22:00 12/17/16 21:16 Levemir Vial SQ 6 units HS [facility] Administration Minoxidil 10 mg 12/18/16 10:00 Loniten - PO BID [facility] Torsemide 100 mg 12/16/16 20:45 12/17/16 10:41 Demadex - PO 100 mg DAILY [facility] Administration ASSESSMENT/PLAN: 55yo M with PMH DM, ESRD ([facility] HD T//Tue), PVD, and htn, presenting s/p flap reconstruction from Right lateral thigh to Right TMA. 1) Right foot post-TMA with flap No ABx at this time per ID Dressing changes per Plastics surgery neurontin pain control no weight bearing on right foot for now possible plan for wound vac f/u wound culture PVD resume Plavix ESRD Nephrology (Dr. Torres) recs appreciated: dialysis today continue PhosLo htn continue Minoxidil increase to BID as he is on this frequency at home continue Torsemide DM BGM ACHS Novolog SSI Levemir 6U SQ HS HgbA1c 6.8 FEN no IVF f/u [id number] Phoslo renal diet PPx Heparin 5,000U SQ TID Visit type - Emergency Visit Emergency Visit: Yes ED Registration Date: 12/16/16 Care time: The patient presented to the Emergency Department on the above date and was hospitalized for further evaluation of their emergent condition. - New Patient This patient is new to me today: Yes Date on this admission: 12/18/16 - Critical Care Critical Care patient: No
[2016-12-18] MEDS ORDERED: INSULIN (NOVOLOG) ASPART 100 UNITS/ML 10ML VIAL ONE (11:35)
[2016-12-18] MEDS ORDERED: EPOETIN ALFA 2,000 UNITS/1 ML VIAL IVPUSH ONE (14:15)
[2016-12-18] MEDS ORDERED: EPOETIN ALFA 3,000 UNIT/1 ML ML IVPUSH ONE (14:15)
[2016-12-18 14:28] LABS: MCH 26.9 pg (25.7-33.7); MCHC 32.4 g/dl (32.0-35.9); MEAN CELL VOLUME 82.8 fl (80-96); MEAN PLT VOLUME 7.1 fl (7.5-11.1); PLATELET COUNT 182 K/MM3 (134-434); RDW 20.4 % (11.9-15.9); WHITE BLOOD COUNT 7.1 K/mm3 (4.0-10.0)
[2016-12-18 15:05] LABS: ANION GAP 16 (8-16); CALCIUM 8.1 mg/dL (8.5-10.1); CO2 23 mmol/L (21-32); GLUCOSE,RANDOM 155 mg/dL (74-106)
[2016-12-18 15:11] LABS: PHOSPHOROUS 7.4 mg/dL (2.5-4.9)
[2016-12-18 15:18] LABS: CREATININE 12.1 mg/dL (0.7-1.3)
--- NOTE | 2016-12-18 15:18 | PN ---
Teaching Attending Note Name of Resident: Elías Greene ATTENDING PHYSICIAN STATEMENT I saw and evaluated the patient. I reviewed the resident's note and discussed the case with the resident. I agree with the resident's findings and plan as documented. SUBJECTIVE: No fever or chills. has no abd pain . 3/10 pain in R foot OBJECTIVE: NAD Cv: RRR Lungs: CTAB Ext: R foot with surgical dressing up to ankle . Edema on R leg. R lateral thigh with a dressing minimally saturated with blood. L LE with no edema or erythema., dry scaly skin on L foot ASSESSMENT AND PLAN: 55 y/o man with h/o HTN, ESRD adn IDDM , R foot OM s/p TMA due to MRSA infections , who presented for a flap reconstruction 1- L foot wound with flap : - surgical dressing change per Sx - DVT px - wound cx form surgery shows corynobacterium , likely skin donoavn . - no treatment indicated for previous MRSA infections 2- H/o PVD : COnt plavix 3- H/o ESRD : cont HD per schedule appreciate renal input 4- DM : cont levemir and SSI 5- HTN urgency this am : given minoxidil dose early .cont minoxidil, make it BID as per home dose if bP remains elevated , might need another agent ( norvasc or ACEI ) HLOC
[2016-12-18 18:09] LABS: CREATININE 6.2 mg/dL (0.7-1.3)
[2016-12-18] MEDS: GABAPENTIN 300 MG CAPSULE (FP) PO SCH ×2 (18:45→21:32)
[2016-12-18] MEDS: CLOPIDOGREL BISULFATE 75 MG TABLET (FP) PO SCH (18:45)
[2016-12-18] MEDS: TORSEMIDE 100 MG TABLET PO SCH (18:46)
[2016-12-18] MEDS: INSULIN DETEMIR 100 UNITS/ML MDV SQ SCH (21:32)
[2016-12-19] MEDS: HEPARIN NA (PORCINE) 5,000 UNITS/ML 1ML VIAL SQ SCH ×3 (06:35→21:18)
[2016-12-19] MEDS: INSULIN SLIDING SCALE (NOVOLOG) 1 VIAL SQ SCH ×4 (06:35→21:20)
[2016-12-19] MEDS: CALCIUM ACETATE 667 MG CAPSULE (FP) PO SCH ×3 (08:22→18:26)
[2016-12-19 09:29] LABS: ANION GAP 11 (8-16); CALCIUM 8.2 mg/dL (8.5-10.1); CO2 27 mmol/L (21-32); GLUCOSE,RANDOM 133 mg/dL (74-106); MAGNESIUM 2.2 mg/dL (1.8-2.4); PHOSPHOROUS 5.7 mg/dL (2.5-4.9)
[2016-12-19 09:58] LABS: CREATININE 9.1 mg/dL (0.7-1.3)
[2016-12-19] MEDS ORDERED: amLODIPine BESYLATE 5 MG TABLET (FP) PO SCH (10:00)
[2016-12-19] MEDS ORDERED: PT OWN MED DRAWER 7, Y5N ONE (10:07)
[2016-12-19] MEDS: GABAPENTIN 300 MG CAPSULE (FP) PO SCH ×2 (10:12→21:18)
[2016-12-19] MEDS: CLOPIDOGREL BISULFATE 75 MG TABLET (FP) PO SCH (10:12)
[2016-12-19] MEDS: MINOXIDIL 10 MG TABLET PO SCH ×2 (10:13→21:19)
[2016-12-19] MEDS: TORSEMIDE 100 MG TABLET PO SCH (10:13)
[2016-12-19] MEDS ORDERED: LABETALOL HCL 100 MG TABLET (FP) PO ONE (15:01)
--- NOTE | 2016-12-19 15:07 | PN ---
Progress Note (short form) - Note Progress Note: Subjective: no fever or chills , has no pain when seen . BP was elevated in am and now as well Objective: Vital Signs: Last Vital Signs Temp Pulse Resp BP Pulse Ox 98.3 F 77 20 173/88 97 12/19/16 14:00 12/19/16 06:00 12/19/16 06:00 12/19/16 06:00 12/18/16 21:00 Laboratory Results - last 24 hr 12/18/16 12/18/16 12/18/16 17:25 17:25 21:31 Sodium Potassium Chloride Carbon Dioxide Anion Gap BUN 43 H D Creatinine 6.2 H D POC Glucometer 232 Random Glucose Calcium Phosphorus Magnesium Hepatitis C Antibody Cancelled 12/19/16 12/19/16 12/19/16 06:07 07:45 11:53 Sodium 136 Potassium 5.2 H Chloride 98 Carbon Dioxide 27 Anion Gap 11 BUN 60 H D Creatinine 9.1 H* D POC Glucometer 136 148 Random Glucose 133 H Calcium 8.2 L Phosphorus 5.7 H D Magnesium 2.2 Hepatitis C Antibody Physical Exam: NAD Cv: RRR Lungs: CTAB Ext: R foot with surgical dressing up to ankle . Edema on R leg. R lateral thigh with a dressing minimally saturated with blood. L LE with no edema or erythema., dry scaly skin on L foot ASSESSMENT AND PLAN: 55 y/o man with h/o HTN, ESRD adn IDDM , R foot OM s/p TMA due to MRSA infections , who presented for a flap reconstruction 1- L foot wound with flap: - surgical dressing change per Sx. possible wound vac tomorrow - DVT px - wound cx form surgery shows corynobacterium , likely skin donovan . - no treatment indicated for previous MRSA infections 2- H/o PVD : Cont plavix 3- H/o ESRD : cont HD per schedule Appreciate renal input 4- DM: cont levemir and SSI 5- HTN urgency started 5 mg of norvasc this am in addition to minoxidile . now BP is 200/100. will give 100 mg of labetalol po now and increase norvasc to 10 HLOC Visit type - Emergency Visit Emergency Visit: Yes ED Registration Date: 12/16/16 Care time: The patient presented to the Emergency Department on the above date and was hospitalized for further evaluation of their emergent condition. - New Patient This patient is new to me today: No - Critical Care Critical Care patient: No
[2016-12-19] MEDS: ACETAMINOPHEN 325 MG TABLET (FP) PO PRN (15:20)
[2016-12-19] MEDS: INSULIN DETEMIR 100 UNITS/ML MDV SQ SCH (21:19)
[2016-12-19] MEDS ORDERED: LABETALOL HCL 100 MG TABLET (FP) PO SCH (22:00)
[2016-12-20] MEDS: HEPARIN NA (PORCINE) 5,000 UNITS/ML 1ML VIAL SQ SCH ×3 (05:50→22:04)
[2016-12-20] MEDS: INSULIN SLIDING SCALE (NOVOLOG) 1 VIAL SQ SCH ×4 (06:14→22:05)
[2016-12-20] MEDS: CALCIUM ACETATE 667 MG CAPSULE (FP) PO SCH ×3 (07:51→16:53)
[2016-12-20 08:10] LABS: ANION GAP 16 (8-16); CALCIUM 8.3 mg/dL (8.5-10.1); CO2 24 mmol/L (21-32)
[2016-12-20 08:24] LABS: GLUCOSE,RANDOM 125 mg/dL (74-106)
[2016-12-20 08:45] LABS: CREATININE 11.1 mg/dL (0.7-1.3)
[2016-12-20] MEDS: TORSEMIDE 100 MG TABLET PO SCH (10:57)
[2016-12-20] MEDS: MINOXIDIL 10 MG TABLET PO SCH ×2 (10:57→22:04)
[2016-12-20] MEDS: CLOPIDOGREL BISULFATE 75 MG TABLET (FP) PO SCH (10:58)
[2016-12-20] MEDS: GABAPENTIN 300 MG CAPSULE (FP) PO SCH (10:58)
[2016-12-20] MEDS: amLODIPine BESYLATE 5 MG TABLET (FP) PO SCH (10:58)
--- NOTE | 2016-12-20 15:35 | PN ---
Progress Note, Physician Chief Complaint: The patient is feeling well. No significant pain. Denies any chest pain or shortness of breath. - Current Medication List Current Medications: Active Medications Acetaminophen (Tylenol -) 650 mg PO Q4H PRN PRN Reason: Pain Last Admin: 12/19/16 15:20 Dose: 650 mg Amlodipine Besylate (Norvasc -) 10 mg PO DAILY [facility] Last Admin: 12/20/16 10:58 Dose: 10 mg Calcium Acetate (Phoslo -) 667 mg PO TIDCM [facility] Last Admin: 12/20/16 11:48 Dose: 667 mg Clopidogrel Bisulfate (Plavix -) 75 mg PO DAILY [facility] Last Admin: 12/20/16 10:58 Dose: 75 mg Gabapentin (Neurontin -) 300 mg PO BID [facility] Last Admin: 12/20/16 10:58 Dose: 300 mg Heparin Sodium (Porcine) (Heparin -) 5,000 unit SQ TID [facility] Last Admin: 12/20/16 14:40 Dose: Not Given Insulin Aspart (Novolog Vial Sliding Scale -) 1 vial SQ ACHS [facility] PRN Reason: Protocol Last Admin: 12/20/16 11:43 Dose: Not Given Insulin Detemir (Levemir Vial) 6 units SQ HS [facility] Last Admin: 12/19/16 21:19 Dose: 6 units Minoxidil (Loniten -) 10 mg PO BID [facility] Last Admin: 12/20/16 10:57 Dose: 10 mg Torsemide (Demadex -) 100 mg PO DAILY [facility] Last Admin: 12/20/16 10:57 Dose: 100 mg - Objective Vital Signs: Vital Signs Temperature 98.4 F 12/20/16 14:45 Pulse Rate 77 12/20/16 14:45 Respiratory Rate 18 12/20/16 14:45 Blood Pressure 154/58 12/20/16 14:45 O2 Sat by Pulse Oximetry (%) 98 12/19/16 21:00 Constitutional: Yes: Well Nourished Eyes: Yes: WNL, Conjunctiva Clear HENT: Yes: WNL, Atraumatic, Normocephalic Neck: Yes: WNL, Supple, Trachea Midline Cardiovascular: Yes: WNL, Regular Rate and Rhythm Respiratory: Yes: WNL, Regular, CTA Bilaterally Gastrointestinal: Yes: WNL, Normal Bowel Sounds Breast(s): Yes: Skin Changes Extremities: Yes: Amputation Edema: Yes Neurological: Yes: Alert, Oriented Labs: CBC, BMP 12/18/16 14:15 12/20/16 06:10 Problem List - Problems (1) MRSA (methicillin resistant Staphylococcus aureus) colonization Code(s): Z22.322 - CARRIER OR SUSPECTED CARRIER OF METHICILLIN RESIS STAPH (2) Anemia in ESRD (end-stage renal disease) Code(s): N18.6 - END STAGE RENAL DISEASE D63.1 - ANEMIA IN CHRONIC KIDNEY DISEASE (3) Diabetic foot Code(s): E11.8 - TYPE 2 DIABETES MELLITUS WITH UNSPECIFIED COMPLICATIONS (4) Gangrene of toe of right foot Code(s): I96 - GANGRENE, NOT ELSEWHERE CLASSIFIED (5) Type 2 diabetes mellitus with foot ulcer Code(s): E11.621 - TYPE 2 DIABETES MELLITUS WITH FOOT ULCER L97.509 - NON-PRESSURE CHRONIC ULCER OTH PRT UNSP FOOT W UNSP SEVERITY Qualifiers: (6) ESRD needing dialysis Code(s): N18.6 - END STAGE RENAL DISEASE (7) HTN (hypertension) Code(s): I10 - ESSENTIAL (PRIMARY) HYPERTENSION Qualifiers: Hypertension type: essential hypertension Qualified Code(s): I10 - Essential (primary) hypertension; I10 - Essential (primary) hypertension; I10 - Essential (primary) hypertension (8) Osteomyelitis of right foot Code(s): M86.9 - OSTEOMYELITIS, UNSPECIFIED Assessment/Plan 55 y/o male admitted after flap surgery for foot wound. Has ESRD on HD. Patient is not allowed to bear weight on the foot. Awaiting plastic surgery f/u Next HD in AM. Sarah Marks MD
--- NOTE | 2016-12-20 15:54 | PATH ---
Surgical Pathology Report Patient Name: ZAK THOMPSON [facility]. Rec. #: [id number] /Age/Gender: 1960 (Age: 55) / M Account: [id number] Location: [address] [place] [address]/[facility] Taken: 12/16/2016 Received: 12/17/2016 Reported: 12/20/2016 Physicians: Jolynn Hunt M.D. Specimen(s) Received DIABETIC ULCER DEBRIDEMENT TISSUE RIGHT FOOT Clinical History Diabetic ulcer, debridement for infection Final Diagnosis FOOT, RIGHT, DIABETIC ULCER TISSUE, DEBRIDEMENT: SOFT TISSUE WITH MARKED ACUTE AND CHRONIC INFLAMMATION, ULCERATION, AND GRANULATION TISSUE. PORTION OF SKIN WITH HYPERKERATOSIS AND CHRONIC INFLAMMATION. Electronically Signed Leslie Murrell M.D. Gross Description Received in formalin labeled "right foot diabetic foot ulcer debridement," is a 7.0 x 6.0 x 0.4 cm aggregate of martinez-barraza, unoriented, necrotic portions of skin. Senior [employer] Analyst sections are submitted in one cassette. /12/17/[facility]
[2016-12-20] MEDS ORDERED: GABAPENTIN 300 MG CAPSULE (FP) PO SCH (17:04)
--- NOTE | 2016-12-20 18:55 | PN ---
Teaching Attending Note Name of Resident: Suad Caceres ATTENDING PHYSICIAN STATEMENT I saw and evaluated the patient. I reviewed the resident's note and discussed the case with the resident. I agree with the resident's findings and plan as documented. SUBJECTIVE: no fever or chillsl, no pain OBJECTIVE: NAD Cv: RRR Lungs: CTAB Ext: R foot with surgical dressing up to ankle . Edema on R leg improved 1+ now . R lateral thigh with a dressing minimally saturated with blood. 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 possible wound vac soon - DVT px - wound cx form surgery shows corynobacterium , likely skin donovan . - no treatment indicated for previous MRSA infections 2- H/o PVD : Cont plavix 3- H/o ESRD : cont HD per schedule Appreciate renal input 4- DM: cont levemir and SSI 5- HTN: cont minoxidile, and increased dos eof norvasc HLOC No weight baring
[2016-12-20] MEDS: ACETAMINOPHEN 325 MG TABLET (FP) PO PRN (20:49)
[2016-12-20] MEDS ORDERED: INSULIN (NOVOLOG) ASPART 100 UNITS/ML 10ML VIAL ONE (21:45)
[2016-12-20] MEDS: GABAPENTIN 100 MG CAPSULE (FP) PO SCH (22:03)
[2016-12-20] MEDS: INSULIN DETEMIR 100 UNITS/ML MDV SQ SCH (22:04)
--- NOTE | 2016-12-20 22:51 | PN ---
Physical Exam: SUBJECTIVE: Patient seen and examined. Pt reports feeling sluggish, which he attributes to his Neurontin. Pt denies fever, chills, pain. No overnight events. OBJECTIVE: Vital Signs Period Temp Pulse Resp BP Sys/Salas Pulse Ox Last 24 Hr 97.5 F-98.4 F 74-90 18-20 150-200/58-88 GENERAL: The patient is awake, alert, and fully oriented, in no acute distress. LUNGS: Breath sounds equal, clear to auscultation bilaterally, no wheezes, no crackles, no accessory muscle use. HEART: Regular rate and rhythm, S1, S2 without murmur, rub or gallop. EXTREMITIES: Right LE dressing in place. Right lateral thigh with dressing minimally soaked with blood. No edema to darell LE. PSYCH: Normal mood, normal affect. SKIN: Warm, dry, normal turgor, no rashes or lesions noted Laboratory Results - last 24 hr 12/18/16 12/20/16 12/20/16 17:25 05:46 06:10 Sodium 135 L Potassium 5.4 H Chloride 95 L Carbon Dioxide 24 Anion Gap 16 BUN 88 H D Creatinine 11.1 H* D POC Glucometer 145 Random Glucose 125 H Calcium 8.3 L Hepatitis C Antibody 0.2 12/20/16 12/20/16 12/20/16 11:24 16:52 21:43 Sodium Potassium Chloride Carbon Dioxide Anion Gap BUN Creatinine POC Glucometer 152 183 171 Random Glucose Calcium Hepatitis C Antibody Active Medications Generic Name Dose Route Start Last Admin Trade Name Freq PRN Reason Stop Dose Admin Acetaminophen 650 mg 12/16/16 20:38 12/20/16 20:49 Tylenol - PO 650 mg Q4H PRN Administration Pain Amlodipine Besylate 10 mg 12/19/16 15:07 12/20/16 10:58 Norvasc - PO 10 mg DAILY MONIK Administration Calcium Acetate 667 mg 12/16/16 20:45 12/20/16 16:53 Phoslo - PO 667 mg TIDCM MONIK Administration Clopidogrel Bisulfate 75 mg 12/18/16 10:00 12/20/16 10:58 Plavix - PO 75 mg DAILY [facility]IK Administration Epoetin Alexander 10,000 unit 12/21/16 15:37 Procrit - IVPUSH 12/21/16 15:38 ONCE ONE Gabapentin 100 mg 12/20/16 17:10 11/06/17 22:03 Neurontin - PO 100 mg BID MONIK Administration Heparin Sodium (Porcine) 5,000 unit 12/17/16 14:00 12/20/16 22:04 Heparin - SQ 5,000 unit TID MONIK Administration Insulin Aspart 1 vial 12/17/16 07:00 12/20/16 22:05 Novolog Vial Sliding Scale - SQ 2 units ACHS MONIK Administration Protocol Insulin Detemir 6 units 12/16/16 22:00 12/20/16 22:04 Levemir Vial SQ 6 units HS [facility]IK Administration Minoxidil 10 mg 12/19/16 10:00 12/20/16 22:04 Loniten - PO 10 mg BID MONIK Administration Torsemide 100 mg 12/16/16 20:45 12/20/16 10:57 Demadex - PO 100 mg DAILY [facility] Administration ASSESSMENT/PLAN: 55yo M with PMH DM, ESRD (wtih HD T//Tue), PVD, IDDM, and htn, presenting s/p flap reconstruction from Right lateral thigh to Right TMA. 1) Right foot post-TMA with flap - POD 2 - dressing change per Sx - continue Neurontin and Tylenol for pain - Plastic Surgery (Dr. Hunt) recs appreciated: - no dangling foot, completely non-weight bearing - possible wound vac application next week - wound culture (+) for Corynebacterium, likely contaminated with skin donovan 2) PVD - resume Plavix 3) ESRD - Nephrology (Dr. Torres) recs appreciated: - dialysis tomorrow - continue PhosLo - Epogen ordered for tomorrow 4) htn - continue Minoxidil and Torsemide - Norvasc 10mg daily added 5) DM - BGM ACHS - Novolog SSI - Levemir 6U SQ HS 6) FEN - Fluids: no IVFs, 1.2 L fluid restriction per Nephrology - Electrolytes: hyponatremia, hyperkalemia, elevated BUN/Cr all noted -> HD tomorrow. Continue to monitor. - Nutrition: renal diet 7) DVT Prophylaxis - Heparin 5,000U SQ TID Visit type - Emergency Visit Emergency Visit: Yes ED Registration Date: 12/16/16 Care time: The patient presented to the Emergency Department on the above date and was hospitalized for further evaluation of their emergent condition. - New Patient This patient is new to me today: No - Critical Care Critical Care patient: No
[2016-12-21] MEDS: INSULIN SLIDING SCALE (NOVOLOG) 1 VIAL SQ SCH ×5 (06:09→22:30)
[2016-12-21] MEDS: HEPARIN NA (PORCINE) 5,000 UNITS/ML 1ML VIAL SQ SCH ×3 (06:09→22:26)
[2016-12-21] MEDS: CALCIUM ACETATE 667 MG CAPSULE (FP) PO SCH ×3 (07:33→17:05)
[2016-12-21] MEDS ORDERED: EPOETIN ALFA 10,000 UNIT/1 ML VIAL IVPUSH ONE (08:45)
[2016-12-21 09:38] LABS: ANION GAP 13 (8-16); CALCIUM 8.1 mg/dL (8.5-10.1); CO2 23 mmol/L (21-32); GLUCOSE,RANDOM 150 mg/dL (74-106)
[2016-12-21 09:42] LABS: BASOPHIL 0.9 % (0-2.0); EOSINOPHIL 3.8 % (0-4.5); MCH 27.1 pg (25.7-33.7); MCHC 32.9 g/dl (32.0-35.9); MEAN CELL VOLUME 82.4 fl (80-96); MEAN PLT VOLUME 7.3 fl (7.5-11.1); NEUTROPHILS 62.3 % (42.8-82.8); PLATELET COUNT 205 K/MM3 (134-434); RDW 20.6 % (11.9-15.9); WHITE BLOOD COUNT 7.6 K/mm3 (4.0-10.0)
[2016-12-21 09:49] LABS: ALK PHOS 156 U/L (45-117); BILIRUBIN,TOTAL 0.5 mg/dL (0.2-1.0); SGOT/AST 26 U/L (15-37); SGPT/ALT 25 U/L (12-78); TOT PROT 7.6 g/dl (6.4-8.2)
[2016-12-21 10:57] LABS: CREATININE 12.6 mg/dL (0.7-1.3)
[2016-12-21] MEDS: MINOXIDIL 10 MG TABLET PO SCH ×2 (12:15→22:25)
[2016-12-21] MEDS: TORSEMIDE 100 MG TABLET PO SCH (12:15)
[2016-12-21] MEDS: GABAPENTIN 100 MG CAPSULE (FP) PO SCH ×2 (12:16→22:26)
[2016-12-21] MEDS: amLODIPine BESYLATE 5 MG TABLET (FP) PO SCH (12:16)
[2016-12-21] MEDS: CLOPIDOGREL BISULFATE 75 MG TABLET (FP) PO SCH (12:16)
[2016-12-21 12:53] LABS: ANISOCYTOSIS 2+
[2016-12-21] MEDS: ACETAMINOPHEN 325 MG TABLET (FP) PO PRN (15:26)
--- NOTE | 2016-12-21 16:11 | PN ---
Progress Note (short form) - Note Progress Note: Renal follow up for ESRD on HD Pt seen and examined at the bedside no acute complaints no sob, chest pain, abd pain, N/V/D Vital Signs Temperature 97.9 F 12/18/16 08:00 Pulse Rate 74 12/18/16 08:00 Respiratory Rate 18 12/18/16 08:00 Blood Pressure 202/90 12/18/16 08:00 O2 Sat by Pulse Oximetry (%) 97 12/17/16 21:00 Intake & Output 12/15/16 12/16/16 12/17/16 12/18/16 23:59 23:59 23:59 23:59 Intake Total 100 1250 300 Output Total 100 Balance 0 1250 300 Weight 186 lb 7 oz 195 lb 5 oz NAD awake and alert RRR CTA soft NT/ND Right thigh dressing, right foot dressing in place CBC, BMP 12/17/16 07:12 12/17/16 07:12 Current Medications Acetaminophen (Tylenol -) 650 mg PO Q4H PRN PRN Reason: Pain Last Admin: 12/18/16 09:19 Dose: 650 mg Calcium Acetate (Phoslo -) 667 mg PO TIDCM [facility] Last Admin: 12/18/16 08:00 Dose: 667 mg Clopidogrel Bisulfate (Plavix -) 75 mg PO DAILY [facility] Epoetin Alexander (Epogen -) 6,000 units IVPUSH ONCE ONE Stop: 12/18/16 06:01 Fentanyl (Sublimaze Injection -) 50 mcg IVPUSH [id number] PRN PRN Reason: PAIN Stop: 12/19/16 18:05 Gabapentin (Neurontin -) 300 mg PO BID [facility] Last Admin: 12/17/16 21:15 Dose: 300 mg Heparin Sodium (Porcine) (Heparin -) 5,000 unit SQ TID [facility] Last Admin: 12/18/16 06:35 Dose: 5,000 unit Insulin Aspart (Novolog Vial Sliding Scale -) 1 vial SQ ACHS [facility] PRN Reason: Protocol Last Admin: 12/18/16 06:35 Dose: Not Given Insulin Detemir (Levemir Vial) 6 units SQ HS [facility] Last Admin: 12/17/16 21:16 Dose: 6 units Minoxidil (Loniten -) 10 mg PO BID [facility] Torsemide (Demadex -) 100 mg PO DAILY [facility] Last Admin: 12/17/16 10:41 Dose: 100 mg 55 year old gentleman with PMhx of ESRD on HD (TTS), Hypertension, DM, PVD s/p amputation now admitted for skin graft procedure. #PVD s/p Skin graft Plastic Surgery follow up #ESRD on HD s/p Hd today with 4kg UF #Hypertension continue Minoxidil BID and Torsemide amlodipine added goal BP < 140/90 #Renal Osteodystrophy continue Phoslo trend phos levels #CKD related anemia continue BRENT with HD Thank you Cm Torres DO Problem List - Problems (1) Anemia in ESRD (end-stage renal disease) Code(s): N18.6 - END STAGE RENAL DISEASE D63.1 - ANEMIA IN CHRONIC KIDNEY DISEASE (2) ESRD (end stage renal disease) Code(s): N18.6 - END STAGE RENAL DISEASE (3) Osteomyelitis of right foot Code(s): M86.9 - OSTEOMYELITIS, UNSPECIFIED
--- NOTE | 2016-12-21 18:18 | PN ---
Physical Exam: SUBJECTIVE: Patient seen and examined. Pt denies fever, chills, chest pain, palpitations, sob. Pt reports feeling fine. No events overnight. OBJECTIVE: Vital Signs Period Temp Pulse Resp BP Sys/Salas Pulse Ox Last 24 Hr 97.3 F-98.1 F 72-81 18-20 163-198/82-104 98 GENERAL: The patient is awake, alert, and fully oriented, in no acute distress. LUNGS: Breath sounds equal, clear to auscultation bilaterally, no wheezes, no crackles, no accessory muscle use. HEART: Regular rate and rhythm, S1, S2 without murmur, rub or gallop. EXTREMITIES: Right LE dressing in place. Right lateral thigh with dressing minimally soaked with blood. No edema to darell LE. PSYCH: Normal mood, normal affect. SKIN: Warm, dry, normal turgor, no rashes or lesions noted Laboratory Results - last 24 hr 12/20/16 12/21/16 12/21/16 21:43 06:03 09:00 WBC RBC Hgb Hct MCV MCH MCHC RDW Plt Count MPV Neutrophils % Lymphocytes % Monocytes % Eosinophils % Basophils % Anisocytosis Sodium 130 L Potassium 6.0 H Chloride 94 L Carbon Dioxide 23 Anion Gap 13 BUN 111 H* D Creatinine 12.6 H* Creat Clearance w eGFR 4.17 POC Glucometer 171 112 Random Glucose 150 H Calcium 8.1 L Total Bilirubin 0.5 AST 26 D ALT 25 D Alkaline Phosphatase 156 H Total Protein 7.6 Albumin 3.0 L 12/21/16 12/21/16 09:00 17:05 WBC 7.6 RBC 3.80 L Hgb 10.3 L Hct 31.3 L MCV 82.4 MCH 27.1 MCHC 32.9 RDW 20.6 H Plt Count 205 MPV 7.3 L Neutrophils % 62.3 Lymphocytes % 22.2 D Monocytes % 10.8 H Eosinophils % 3.8 Basophils % 0.9 Anisocytosis 2+ Sodium Potassium Chloride Carbon Dioxide Anion Gap BUN Creatinine Creat Clearance w eGFR POC Glucometer 167 Random Glucose Calcium Total Bilirubin AST ALT Alkaline Phosphatase Total Protein Albumin Active Medications Generic Name Dose Route Start Last Admin Trade Name Freq PRN Reason Stop Dose Admin Acetaminophen 650 mg 12/16/16 20:38 12/21/16 15:26 Tylenol - PO 650 mg Q4H PRN Administration Pain Amlodipine Besylate 10 mg 12/19/16 15:07 12/21/16 12:16 Norvasc - PO 10 mg DAILY [facility]IK Administration Calcium Acetate 667 mg 12/16/16 20:45 12/21/16 17:05 Phoslo - PO 667 mg TIDCM [facility] Administration Clopidogrel Bisulfate 75 mg 12/18/16 10:00 12/21/16 12:16 Plavix - PO 75 mg DAILY [facility] Administration Gabapentin 100 mg 12/20/16 17:10 12/21/16 12:16 Neurontin - PO 100 mg BID [facility]IK Administration Heparin Sodium (Porcine) 5,000 unit 12/17/16 14:00 12/21/16 13:57 Heparin - SQ 5,000 unit TID [facility]IK Administration Insulin Aspart 1 vial 12/17/16 07:00 12/21/16 17:10 Novolog Vial Sliding Scale - SQ 2 units ACHS MONIK Administration Protocol Insulin Detemir 6 units 12/16/16 22:00 12/20/16 22:04 Levemir Vial SQ 6 units HS [facility] Administration Minoxidil 10 mg 12/19/16 10:00 12/21/16 12:15 Loniten - PO 10 mg BID [facility] Administration Torsemide 100 mg 12/16/16 20:45 12/21/16 12:15 Demadex - PO 100 mg DAILY [facility] Administration ASSESSMENT/PLAN: 55yo M with PMH DM, ESRD ([facility] HD T//Tue), PVD, IDDM, and htn, presenting s/p flap reconstruction from Right lateral thigh to Right TMA. 1) Right foot post-TMA with flap - POD 3 - dressing change per Sx - continue Neurontin and Tylenol for pain - Plastic Surgery (Dr. Hunt) recs appreciated: - no dangling foot, completely non-weight bearing - possible wound vac application next week 2) PVD - resume Plavix 3) ESRD - Nephrology (Dr. Torres) recs appreciated: - dialysis today - continue PhosLo 4) htn - continue Minoxidil, Norvasc, and Torsemide 5) DM - BGM ACHS - Novolog SSI - Levemir 6U SQ HS 6) FEN - Fluids: no IVFs, 1.2 L fluid restriction per Nephrology - Electrolytes: hyponatremia, hyperkalemia, elevated BUN/Cr all noted -> HD today after labs were drawn. Continue to monitor. - Nutrition: renal diet 7) DVT Prophylaxis - Heparin 5,000U SQ TID Visit type - Emergency Visit Emergency Visit: Yes ED Registration Date: 12/16/16 Care time: The patient presented to the Emergency Department on the above date and was hospitalized for further evaluation of their emergent condition. - New Patient This patient is new to me today: No - Critical Care Critical Care patient: No
--- NOTE | 2016-12-21 19:03 | PN ---
Teaching Attending Note Name of Resident: Suad Caceres ATTENDING PHYSICIAN STATEMENT I saw and evaluated the patient. I reviewed the resident's note and discussed the case with the resident. I agree with the resident's findings and plan as documented. SUBJECTIVE: no pain , no fever or chills OBJECTIVE: NAD Cv: RRR Lungs: CTAB Ext: R foot with surgical dressing up to ankle . Edema on R leg improved 1+ now . R lateral thigh with a dressing minimally saturated with blood. 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 - no treatment indicated for previous MRSA infections 2- H/o PVD : Cont plavix 3- H/o ESRD : cont HD per schedule Appreciate renal input 4- DM: cont levemir and SSI 5- HTN: cont minoxidile, and norvasc HLOC due to risk of skin graft failure
[2016-12-21] MEDS ORDERED: PT OWN MED DRAWER 7, Y5N ONE (22:11)
[2016-12-21] MEDS: INSULIN DETEMIR 100 UNITS/ML MDV SQ SCH (22:26)
[2016-12-22] MEDS ORDERED: PT OWN MED DRAWER 7, Y5N ONE ×3 (07:59→21:21)
[2016-12-22] MEDS: CALCIUM ACETATE 667 MG CAPSULE (FP) PO SCH ×3 (08:03→17:28)
[2016-12-22 08:06] LABS: MCH 26.9 pg (25.7-33.7); MCHC 32.5 g/dl (32.0-35.9); MEAN CELL VOLUME 82.6 fl (80-96); MEAN PLT VOLUME 7.5 fl (7.5-11.1); PLATELET COUNT 215 K/MM3 (134-434); RDW 20.8 % (11.9-15.9); WHITE BLOOD COUNT 6.9 K/mm3 (4.0-10.0)
[2016-12-22 09:42] LABS: ANION GAP 16 (8-16); CALCIUM 7.5 mg/dL (8.5-10.1); CO2 24 mmol/L (21-32); GLUCOSE,RANDOM 140 mg/dL (74-106)
[2016-12-22] MEDS: CLOPIDOGREL BISULFATE 75 MG TABLET (FP) PO SCH (10:58)
[2016-12-22] MEDS: GABAPENTIN 100 MG CAPSULE (FP) PO SCH ×2 (10:58→21:25)
[2016-12-22] MEDS: amLODIPine BESYLATE 5 MG TABLET (FP) PO SCH (10:58)
[2016-12-22] MEDS: MINOXIDIL 10 MG TABLET PO SCH ×2 (10:59→21:55)
[2016-12-22] MEDS: TORSEMIDE 100 MG TABLET PO SCH (11:09)
[2016-12-22] MEDS: INSULIN SLIDING SCALE (NOVOLOG) 1 VIAL SQ SCH ×4 (11:10→21:26)
[2016-12-22] MEDS: HEPARIN NA (PORCINE) 5,000 UNITS/ML 1ML VIAL SQ SCH ×2 (15:30→21:26)
--- NOTE | 2016-12-22 15:35 | PN ---
Progress Note (short form) - Note Progress Note: Post Op follow up for Skin graft Right foot/Sole Awake alert, No c/o pain patient has been on bed rest with Legs elevated Wound Care : Dressing changed Right foot Significant bleeding post surgery , now dried blood on the dressing Dressing removed carefully, avoiding any trauma to Graft No odor, graft pink and adherent small areas of bleeding while dressing was changed, Bleeders were controlled by pressure and than cautirazed with Ag No3 New dressing done with zeroform, 4x4 combined and kurlex/coban Donor site evaluated, graft site covered with zeroform, dry and intact, no dominick- wound erythema, no discharge Plan : Leave zeroform in place, zeroform will fall off when base epithelized Opted not to apply VAC, patient is on blood thinners and bleeds easily, blood thinners cannot be held . Leave dressing intact, keep it dry, keep leg elevated and not to dangle may move around with roller/blade with knee supported FU : one week in wound clinic
--- NOTE | 2016-12-22 19:18 | PN ---
Teaching Attending Note Name of Resident: Suad Caceres ATTENDING PHYSICIAN STATEMENT I saw and evaluated the patient. I reviewed the resident's note and discussed the case with the resident. I agree with the resident's findings and plan as documented. SUBJECTIVE: Patient is comfortable with no acute distress, no shortness of breath. No fever or chills, no headache. OBJECTIVE: Vital Signs Temperature 98.1 F 12/22/16 15:27 Pulse Rate 74 12/22/16 15:27 Respiratory Rate 18 12/22/16 15:27 Blood Pressure 168/90 12/22/16 15:27 O2 Sat by Pulse Oximetry (%) 95 12/22/16 09:00 CBCD WBC 6.9 K/mm3 (4.0-10.0) 12/22/16 06:20 RBC 4.01 M/mm3 (4.00-5.60) 12/22/16 06:20 Hgb 10.8 GM/dL (11.7-16.9) L 12/22/16 06:20 Hct 33.1 % (35.4-49) L 12/22/16 06:20 MCV 82.6 fl (80-96) 12/22/16 06:20 MCHC 32.5 g/dl (32.0-35.9) 12/22/16 06:20 RDW 20.8 % (11.9-15.9) H 12/22/16 06:20 Plt Count 215 K/MM3 (134-434) 12/22/16 06:20 MPV 7.5 fl (7.5-11.1) 12/22/16 06:20 CMP Sodium 134 mmol/L (136-145) L 12/22/16 06:20 Potassium 5.3 mmol/L (3.5-5.1) H 12/22/16 06:20 Chloride 94 mmol/L (98-107) L 12/22/16 06:20 Carbon Dioxide 24 mmol/L (21-32) 12/22/16 06:20 Anion Gap 16 (8-16) 12/22/16 06:20 BUN 78 mg/dL (7-18) H D 12/22/16 06:20 Creatinine 10.0 mg/dL (0.7-1.3) H* D 12/22/16 06:20 Creat Clearance w eGFR 4.17 (>60) 12/21/16 09:00 Random Glucose 140 mg/dL (74-106) H 12/22/16 06:20 Calcium 7.5 mg/dL (8.5-10.1) L 12/22/16 06:20 Total Bilirubin 0.5 mg/dL (0.2-1.0) 12/21/16 09:00 AST 26 U/L (15-37) D 12/21/16 09:00 ALT 25 U/L (12-78) D 12/21/16 09:00 Alkaline Phosphatase 156 U/L (45-117) H 12/21/16 09:00 Total Protein 7.6 g/dl (6.4-8.2) 12/21/16 09:00 Albumin 3.0 g/dl (3.4-5.0) L 12/21/16 09:00 Current Medications Generic Name Dose Route Start Last Admin Trade Name Freq PRN Reason Stop Dose Admin Acetaminophen 650 mg 12/16/16 20:38 12/21/16 15:26 Tylenol - PO 650 mg Q4H PRN Administration Pain Amlodipine Besylate 10 mg 12/19/16 15:07 12/22/16 10:58 Norvasc - PO 10 mg DAILY MONIK Administration Calcium Acetate 667 mg 12/16/16 20:45 12/22/16 17:28 Phoslo - PO 667 mg TIDCM MONIK Administration Clopidogrel Bisulfate 75 mg 12/18/16 10:00 12/22/16 10:58 Plavix - PO 75 mg DAILY MONIK Administration Epoetin Alexander 10,000 units 12/23/16 06:00 Epogen - IVPUSH 12/23/16 06:01 ONCE ONE Gabapentin 200 mg 12/22/16 14:54 Neurontin - PO BID MONIK Heparin Sodium (Porcine) 5,000 unit 12/17/16 14:00 12/22/16 15:30 Heparin - SQ 5,000 unit TID MONIK Administration Insulin Aspart 1 vial 12/17/16 07:00 12/22/16 17:44 Novolog Vial Sliding Scale - SQ 2 units ACHS MONIK Administration Protocol Insulin Detemir 6 units 12/16/16 22:00 12/21/16 22:26 Levemir Vial SQ 6 units HS MONIK Administration Minoxidil 10 mg 12/19/16 10:00 12/22/16 10:59 Loniten - PO 10 mg BID MONIK Administration Torsemide 100 mg 12/16/16 20:45 12/22/16 11:09 Demadex - PO 100 mg DAILY MONIK Administration Home Medications Medication Instructions Recorded Acetaminophen [Tylenol] 650 mg PO Q4H PRN 07/21/16 Minoxidil [Loniten -] 10 mg PO BID 07/21/16 Torsemide 100 mg PO DAILY 07/21/16 Calcium Acetate [Phoslo -] 667 mg PO TIDCM 08/09/16 Insulin (Levemir) [Levemir Flexpen 6 units SQ HS PRN 08/09/16 -] Clopidogrel Bisulfate [Plavix -] 75 mg PO DAILY #30 tablet 11/10/16 PE: per resident's note ASSESSMENT AND PLAN: 55 y/o man with h/o HTN, ESRD adn IDDM , R foot OM s/p TMA due to MRSA infections , who presented for a flap reconstruction # Left foot wound with flap: surgical dressing per , as per No wound vac is needed. # H/o PVD : Cont plavix # H/o ESRD : cont HD per schedule # DM: cont levemir and SSI # HTN: on minoxidil, and norvasc continue discussed with , can go home in am. no need for Wound Vac as per . DVT Px: Heparin sq
--- NOTE | 2016-12-22 20:12 | PN ---
Physical Exam: SUBJECTIVE: Patient seen and examined. OBJECTIVE: Vital Signs Period Temp Pulse Resp BP Sys/Salas Pulse Ox Last 24 Hr 98.1 F-98.1 F 74-77 18-18 168-179/78-90 95-98 GENERAL: The patient is awake, alert, and fully oriented, in no acute distress. HEAD: Normal with no signs of trauma. EYES: PERRL, extraocular movements intact, sclera anicteric, conjunctiva clear. No ptosis. ENT: Ears normal, nares patent, oropharynx clear without exudates, moist mucous membranes. NECK: Trachea midline, full range of motion, supple. LUNGS: Breath sounds equal, clear to auscultation bilaterally, no wheezes, no crackles, no accessory muscle use. HEART: Regular rate and rhythm, S1, S2 without murmur, rub or gallop. ABDOMEN: Soft, nontender, nondistended, normoactive bowel sounds, no guarding, no rebound, no hepatosplenomegaly, no masses. EXTREMITIES: 2+ pulses, warm, well-perfused, no edema. NEUROLOGICAL: Cranial nerves II through XII grossly intact. Normal speech, gait not observed. PSYCH: Normal mood, normal affect. SKIN: Warm, dry, normal turgor, no rashes or lesions noted GENERAL: The patient is awake, alert, and fully oriented, in no acute distress. LUNGS: Breath sounds equal, clear to auscultation bilaterally, no wheezes, no crackles, no accessory muscle use. HEART: Regular rate and rhythm, S1, S2 without murmur, rub or gallop. EXTREMITIES: Right LE dressing in place. Right lateral thigh with dressing minimally soaked with blood. No edema to darell LE. PSYCH: Normal mood, normal affect. SKIN: Warm, dry, normal turgor, no rashes or lesions noted Laboratory Results - last 24 hr 12/18/16 12/21/16 12/22/16 17:25 22:24 06:15 WBC RBC Hgb Hct MCV MCH MCHC RDW Plt Count MPV Sodium Potassium Chloride Carbon Dioxide Anion Gap BUN Creatinine POC Glucometer 210 134 Random Glucose Calcium Hep A IgM Ab Confirm Negative Hepatitis A Ab Total Positive H Hep Bs Antigen Negative Hep Bs Antibody Reactive Hep B Core Total Ab Negative Hepatitis C Antibody 0.2 12/22/16 12/22/16 12/22/16 06:20 06:20 11:02 WBC 6.9 RBC 4.01 Hgb 10.8 L Hct 33.1 L MCV 82.6 MCH 26.9 MCHC 32.5 RDW 20.8 H Plt Count 215 MPV 7.5 Sodium 134 L Potassium 5.3 H Chloride 94 L Carbon Dioxide 24 Anion Gap 16 BUN 78 H D Creatinine 10.0 H* D POC Glucometer 179 Random Glucose 140 H Calcium 7.5 L Hep A IgM Ab Confirm Hepatitis A Ab Total Hep Bs Antigen Hep Bs Antibody Hep B Core Total Ab Hepatitis C Antibody 12/22/16 17:26 WBC RBC Hgb Hct MCV MCH MCHC RDW Plt Count MPV Sodium Potassium Chloride Carbon Dioxide Anion Gap BUN Creatinine POC Glucometer 171 Random Glucose Calcium Hep A IgM Ab Confirm Hepatitis A Ab Total Hep Bs Antigen Hep Bs Antibody Hep B Core Total Ab Hepatitis C Antibody Active Medications Generic Name Dose Route Start Last Admin Trade Name Freq PRN Reason Stop Dose Admin Acetaminophen 650 mg 12/16/16 20:38 12/21/16 15:26 Tylenol - PO 650 mg Q4H PRN Administration Pain Amlodipine Besylate 10 mg 12/19/16 15:07 12/22/16 10:58 Norvasc - PO 10 mg DAILY MONIK Administration Calcium Acetate 667 mg 12/16/16 20:45 12/22/16 17:28 Phoslo - PO 667 mg TIDCM MONIK Administration Clopidogrel Bisulfate 75 mg 12/18/16 10:00 12/22/16 10:58 Plavix - PO 75 mg DAILY MONIK Administration Epoetin Alexander 10,000 units 12/23/16 06:00 Epogen - IVPUSH 12/23/16 06:01 ONCE ONE Gabapentin 200 mg 12/22/16 14:54 Neurontin - PO BID [facility] Heparin Sodium (Porcine) 5,000 unit 12/17/16 14:00 12/22/16 15:30 Heparin - SQ 5,000 unit TID [facility] Administration Insulin Aspart 1 vial 12/17/16 07:00 12/22/16 17:44 Novolog Vial Sliding Scale - SQ 2 units ACHS [facility] Administration Protocol Insulin Detemir 6 units 12/16/16 22:00 12/21/16 22:26 Levemir Vial SQ 6 units HS MONIK Administration Minoxidil 10 mg 12/19/16 10:00 12/22/16 10:59 Loniten - PO 10 mg BID MONIK Administration Torsemide 100 mg 12/16/16 20:45 12/22/16 11:09 Demadex - PO 100 mg DAILY MONIK Administration ASSESSMENT/PLAN: 55yo M with PMH DM, ESRD (with HD T//Tue), PVD, IDDM, and htn, presenting s/p flap reconstruction from Right lateral thigh to Right TMA. 1) Right foot post-TMA with flap - POD 4 - dressing change per Sx - continue Neurontin and Tylenol for pain - Plastic Surgery (Dr. Hunt) recs appreciated: - no dangling foot, completely non-weight bearing - wound vac decided against because blood thinners cannot be held - pt to f/u in wound clinic in 1 week 2) PVD - resume Plavix 3) ESRD - dialysis tomorrow morning -> epogen ordered for prior to HD - continue PhosLo 4) htn - continue Minoxidil, Norvasc, and Torsemide 5) DM - BGM ACHS - Novolog SSI - Levemir 6U SQ HS 6) FEN - Fluids: no IVFs, 1.2 L fluid restriction per Nephrology - Electrolytes: hyponatremia, hyperkalemia, elevated BUN/Cr all noted -> HD tomorrow. Continue to monitor. - Nutrition: renal diet 7) DVT Prophylaxis - Heparin 5,000U SQ TID Visit type - Emergency Visit Emergency Visit: Yes ED Registration Date: 12/16/16 Care time: The patient presented to the Emergency Department on the above date and was hospitalized for further evaluation of their emergent condition. - New Patient This patient is new to me today: No - Critical Care Critical Care patient: No
[2016-12-22] MEDS: INSULIN DETEMIR 100 UNITS/ML MDV SQ SCH (21:26)
[2016-12-22] MEDS: ACETAMINOPHEN 325 MG TABLET (FP) PO PRN (21:57)
[2016-12-23] MEDS: HEPARIN NA (PORCINE) 5,000 UNITS/ML 1ML VIAL SQ SCH ×3 (05:48→14:03)
[2016-12-23] MEDS: INSULIN SLIDING SCALE (NOVOLOG) 1 VIAL SQ SCH ×2 (06:13→13:56)
[2016-12-23] MEDS: CALCIUM ACETATE 667 MG CAPSULE (FP) PO SCH ×2 (08:01→14:03)
[2016-12-23] MEDS ORDERED: EPOETIN ALFA 10,000 UNIT/1 ML VIAL IVPUSH ONE (10:15)
[2016-12-23 10:35] LABS: MCH 27.3 pg (25.7-33.7); MCHC 32.7 g/dl (32.0-35.9); MEAN CELL VOLUME 83.5 fl (80-96); MEAN PLT VOLUME 7.7 fl (7.5-11.1); PLATELET COUNT 184 K/MM3 (134-434); RDW 21.3 % (11.9-15.9); WHITE BLOOD COUNT 7.2 K/mm3 (4.0-10.0)
[2016-12-23 10:59] LABS: ALBUMIN 2.9 g/dl (3.4-5.0); ANION GAP 12 (8-16); BILIRUBIN,TOTAL 0.4 mg/dL (0.2-1.0); CALCIUM 7.9 mg/dL (8.5-10.1); CO2 26 mmol/L (21-32); GLUCOSE,RANDOM 126 mg/dL (74-106); SGOT/AST 52 U/L (15-37); SGPT/ALT 47 U/L (12-78); TOT PROT 7.3 g/dl (6.4-8.2)
[2016-12-23 11:05] LABS: ALK PHOS 149 U/L (45-117)
[2016-12-23 11:23] LABS: CREATININE 11.9 mg/dL (0.7-1.3)
--- NOTE | 2016-12-23 12:01 | PN ---
Progress Note (short form) - Note Progress Note: Renal follow up for ESRD on HD Pt seen and examined during dialysis BP 158/90, GOal UF is 3.5L pt without complaints Vital Signs Temperature 97.8 F 12/23/16 07:55 Pulse Rate 78 12/23/16 09:30 Respiratory Rate 18 12/23/16 09:30 Blood Pressure 158/79 12/23/16 09:30 O2 Sat by Pulse Oximetry (%) 95 12/22/16 21:00 Intake & Output 12/20/16 12/21/16 12/22/16 12/23/16 23:59 23:59 23:59 23:59 Intake Total 840 650 540 Output Total 0 Balance 840 650 540 Weight 189 lb 3 oz 189 lb 4 oz 195 lb 8 oz NAD awake and alert RRR CTA soft NT/ND Right thigh dressing, right foot dressing in place CBC, BMP 12/23/16 08:20 12/23/16 08:20 Laboratory Tests 08/25/16 12/23/16 08:30 08:20 Calcium 8.5 7.9 L Phosphorus 3.5 D Albumin 2.3 L 2.9 L Current Medications Acetaminophen (Tylenol -) 650 mg PO Q4H PRN PRN Reason: Pain Last Admin: 12/22/16 21:57 Dose: 650 mg Amlodipine Besylate (Norvasc -) 10 mg PO DAILY [facility] Last Admin: 12/22/16 10:58 Dose: 10 mg Calcium Acetate (Phoslo -) 667 mg PO TIDCM [facility] Last Admin: 12/22/16 17:28 Dose: 667 mg Clopidogrel Bisulfate (Plavix -) 75 mg PO DAILY [facility] Last Admin: 12/22/16 10:58 Dose: 75 mg Gabapentin (Neurontin -) 200 mg PO BID [facility] Last Admin: 12/22/16 21:25 Dose: 200 mg Heparin Sodium (Porcine) (Heparin -) 5,000 unit SQ TID [facility] Last Admin: 12/23/16 05:48 Dose: 5,000 unit Insulin Aspart (Novolog Vial Sliding Scale -) 1 vial SQ ACHS [facility] PRN Reason: Protocol Last Admin: 12/23/16 06:13 Dose: Not Given Insulin Detemir (Levemir Vial) 6 units SQ HS [facility] Last Admin: 12/22/16 21:26 Dose: 6 units Minoxidil (Loniten -) 10 mg PO BID [facility] Last Admin: 12/22/16 21:55 Dose: 10 mg Torsemide (Demadex -) 100 mg PO DAILY [facility] Last Admin: 12/22/16 11:09 Dose: 100 mg 55 year old gentleman with PMhx of ESRD on HD (TTS), Hypertension, DM, PVD s/p amputation now admitted for skin graft procedure. #PVD s/p Skin graft management as per plastic sx #ESRD on HD tolerating HD today UF as tolreated given persistent hyperkalemia and poor URR got a doppler of the AVF asked Dr. Araiza to review doppler any intervention can be done as outpatient if needed #Hypertension continue Minoxidil BID and Torsemide, amlodipine goal BP < 140/90 #Renal Osteodystrophy continue Phoslo trend phos levels #CKD related anemia continue BRENT with HD Thank you mC Torres DO Problem List - Problems (1) Anemia in ESRD (end-stage renal disease) Code(s): N18.6 - END STAGE RENAL DISEASE; D63.1 - ANEMIA IN CHRONIC KIDNEY DISEASE (2) ESRD (end stage renal disease) Code(s): N18.6 - END STAGE RENAL DISEASE
--- NOTE | 2016-12-23 13:03 | DS ---
Physical Exam: SUBJECTIVE: Patient seen and examined by me at bedside. Patient currently in Dialysis and offers no complaints. No overnight events noted. Otherwise, patient denies fever, chills, nausea, vomiting, abdominal pain, chest pain, palpitations, shortness of breath, headaches. OBJECTIVE: Vital Signs Period Temp Pulse Resp BP Sys/Salas Pulse Ox Last 24 Hr 97.6 F-98.1 F 74-85 18-20 158-179/79-98 95 PHYSICAL EXAM GENERAL: The patient is awake, alert, and fully oriented, in no acute distress. LUNGS: Breath sounds equal, clear to auscultation bilaterally, no wheezes, no crackles, no accessory muscle use. HEART: Regular rate and rhythm, normal S1 and S2 without murmur, rub or gallop. EXTREMITIES: Right LE dressing in place. Right lateral thigh with dressing minimally soaked with blood. No edema to darell LE. PSYCH: Normal mood, normal affect. SKIN: Warm, dry, normal turgor, no rashes or lesions noted LABS Laboratory Results - last 24 hr 12/22/16 12/22/16 12/23/16 17:26 21:19 05:43 WBC RBC Hgb Hct MCV MCH MCHC RDW Plt Count MPV Sodium Potassium Chloride Carbon Dioxide Anion Gap BUN Creatinine Creat Clearance w eGFR POC Glucometer 171 195 122 Random Glucose Calcium Phosphorus Total Bilirubin AST ALT Alkaline Phosphatase Total Protein Albumin 12/23/16 12/23/16 08:20 08:20 WBC 7.2 RBC 3.62 L Hgb 9.9 L Hct 30.2 L MCV 83.5 MCH 27.3 MCHC 32.7 RDW 21.3 H Plt Count 184 MPV 7.7 Sodium 136 Potassium 5.8 H Chloride 98 Carbon Dioxide 26 Anion Gap 12 BUN 103 H D Creatinine 11.9 H* Creat Clearance w eGFR 4.45 POC Glucometer Random Glucose 126 H Calcium 7.9 L Phosphorus 6.0 H Total Bilirubin 0.4 AST 52 H D ALT 47 D Alkaline Phosphatase 149 H Total Protein 7.3 Albumin 2.9 L Microbiology MICROBIOLOGY 12/16/16 10:41 Foot - Right Gram Stain - Final 12/16/16 10:41 Foot - Right Wound Culture - Final Corynebacterium Species Corynebacterium Species#2 HOSPITAL COURSE: Date of Admission:12/16/16 Patient is a 55 year old male with a PMHx of DMII, HTN, ESRD on HD (T,Th,Sat), PVD s/p TMA on 08/10/16 for diabetic foot infection and developed gangrene of the stump with a debridement done on 08/19/16. Patient initially refused BKA and was treated with IV antibiotics and hyperbarics for 6 weeks with frequency wound care clinic follow up. Patient returned for right foot skin graft from lateral thigh secondary to persistent infected right lower extremity positive for MRSA. Patient had procedure for skin graft of right foot/sole done with significant bleeding post operatively which was controlled by pressure and then cautatized. Patient had dressing done with zeroform. No wound VAC was placed as patient is on blood thinners and bleeds easily and patient's blood thinners cannot be held. Therefore, plastic surgeon decided to opt out of wound vac. Patient remained stable throughout hospital course and no complains of pain with bed rest and Leg elevation. Patient stable for discharge and was instruted to leave dressing intact, keep it dry, keep leg elevated and not to dangle foot. [facility] and Amlodipine was added to better control his blood pressure. Date of Discharge: 12/23/16 Minutes to complete discharge: 35 Discharge Summary Reason For Visit: DIABETIC LEFT FOOT ULCER Current Active Problems Anemia in ESRD (end-stage renal disease) (Acute) Anemia in other chronic diseases classified elsewhere (Acute) DVT prophylaxis (Acute) Hyperkalemia (Acute) Hyperkalemia, diminished renal excretion (Acute) Hyperphosphatemia (Acute) Hyponatremia (Acute) Ulcer of right foot (Acute) Wound, open, foot (Acute) Anemia (Chronic) Controlled type 2 diabetes mellitus with foot ulcer (Chronic) Diabetes mellitus with nephropathy (Chronic) Diabetic foot (Chronic) ESRD (end stage renal disease) (Chronic) ESRD needing dialysis (Chronic) HTN (hypertension) (Chronic) MRSA (methicillin resistant Staphylococcus aureus) colonization (Chronic) S/P amputation of foot (Chronic) Uncontrolled diabetes mellitus (Chronic) Wound, open, foot with complication (Chronic) Condition: Improved - Instructions Diet, Activity, Other Instructions: You received a skin graft to your Right foot Transmetatarsal Amputation flap. Please keep your Right foot elevated. Do not dangle your foot or bare weight. Leave the dressing intact and keep it dry. You may move around as tolerated with roller/blade with your knee supported. Please continue your hyperbaric treatments as well. Please follow-up with Dr. Hunt (Plastic Surgery) in the Wound Clinic in 1 week from leaving the hospital. Please schedule a follow-up appointment with your Primary Care Doctor (Dr. Gonzalez ) within 1 week of leaving the hospital. Please schedule a follow-up appointment with your Cigarette Machine Filler (Dr. Wang / Dr. Torres) within 1 week of leaving the hospital. Please return to the hospital immediately if you experience persistent or increased pain in your Right foot, or for any medical emergency. Please continue your medications as prescribed. A prescription for Neurontin has been sent to your pharmacy to help with your leg pain Another medication, Amlodipine, has been prescribed to help control your blood pressure. Referrals: Yang Gonzalez MD [Staff Physician] - 1 Week Jolynn Hunt MD [Staff Physician] - 1 Week (in Wound Clinic) Cm Torres MD [Staff Physician] - 1 Week Disposition: HOME - Home Medications Comprehensive Discharge Medication List: Ambulatory Orders Acetaminophen [Tylenol] 650 mg PO Q4H PRN 07/21/16 Minoxidil [Loniten -] 10 mg PO BID 07/21/16 Torsemide 100 mg PO DAILY 07/21/16 Calcium Acetate [Phoslo -] 667 mg PO TIDCM 08/09/16 Insulin (Levemir) [Levemir Flexpen -] 6 units SQ HS PRN 08/09/16 Clopidogrel Bisulfate [Plavix -] 75 mg PO DAILY #30 tablet 11/10/16 Amlodipine Besylate [Norvasc -] 10 mg PO DAILY #30 tablet 12/23/16 Gabapentin [Neurontin -] 200 mg PO BID #60 capsule 12/23/16 This patient is new to me today: Yes Date on this admission: 12/23/16 Emergency Visit: Yes ED Registration Date: 12/16/16 Care time: The patient presented to the Emergency Department on the above date and was hospitalized for further evaluation of their emergent condition. Critical Care patient: No - Discharge Referral Referred to [facility] Med [facility].C[facility] Yes Physician Referral: Yang Gonzalez MD (Int Med), Lee Araiza DO (Vasc)
[2016-12-23] MEDS ORDERED: PT OWN MED DRAWER 7, Y5N ONE (13:38)
[2016-12-23] MEDS: GABAPENTIN 100 MG CAPSULE (FP) PO SCH (14:00)
[2016-12-23] MEDS: CLOPIDOGREL BISULFATE 75 MG TABLET (FP) PO SCH (14:00)
[2016-12-23] MEDS: amLODIPine BESYLATE 5 MG TABLET (FP) PO SCH (14:01)
[2016-12-23] MEDS: MINOXIDIL 10 MG TABLET PO SCH (14:02)
[2016-12-23] MEDS: TORSEMIDE 100 MG TABLET PO SCH (14:02)
[2016-12-23 14:25] VITALS: BP 158/77; PULSE 82; TEMP 98
--- NOTE | 2016-12-23 19:16 | PN ---
Teaching Attending Note Name of Resident: Suad Caceres ATTENDING PHYSICIAN STATEMENT I saw and evaluated the patient. I reviewed the resident's note and discussed the case with the resident. I agree with the resident's findings and plan as documented. SUBJECTIVE: Patient is feeling better, having dialysis today. OBJECTIVE: Vital Signs Temperature 98 F 12/23/16 14:24 Pulse Rate 82 12/23/16 14:24 Respiratory Rate 18 12/23/16 14:24 Blood Pressure 158/77 12/23/16 14:24 O2 Sat by Pulse Oximetry (%) 97 12/23/16 09:00 CBCD WBC 7.2 K/mm3 (4.0-10.0) 12/23/16 08:20 RBC 3.62 M/mm3 (4.00-5.60) L 12/23/16 08:20 Hgb 9.9 GM/dL (11.7-16.9) L 12/23/16 08:20 Hct 30.2 % (35.4-49) L 12/23/16 08:20 MCV 83.5 fl (80-96) 12/23/16 08:20 MCHC 32.7 g/dl (32.0-35.9) 12/23/16 08:20 RDW 21.3 % (11.9-15.9) H 12/23/16 08:20 Plt Count 184 K/MM3 (134-434) 12/23/16 08:20 MPV 7.7 fl (7.5-11.1) 12/23/16 08:20 CMP Sodium 136 mmol/L (136-145) 12/23/16 08:20 Potassium 5.8 mmol/L (3.5-5.1) H 12/23/16 08:20 Chloride 98 mmol/L (98-107) 12/23/16 08:20 Carbon Dioxide 26 mmol/L (21-32) 12/23/16 08:20 Anion Gap 12 (8-16) 12/23/16 08:20 BUN 103 mg/dL (7-18) H D 12/23/16 08:20 Creatinine 11.9 mg/dL (0.7-1.3) H* 12/23/16 08:20 Creat Clearance w eGFR 4.45 (>60) 12/23/16 08:20 Random Glucose 126 mg/dL (74-106) H 12/23/16 08:20 Calcium 7.9 mg/dL (8.5-10.1) L 12/23/16 08:20 Total Bilirubin 0.4 mg/dL (0.2-1.0) 12/23/16 08:20 AST 52 U/L (15-37) H D 12/23/16 08:20 ALT 47 U/L (12-78) D 12/23/16 08:20 Alkaline Phosphatase 149 U/L (45-117) H 12/23/16 08:20 Total Protein 7.3 g/dl (6.4-8.2) 12/23/16 08:20 Albumin 2.9 g/dl (3.4-5.0) L 12/23/16 08:20 PE: per resident's note ASSESSMENT AND PLAN: 55 y/o man with h/o HTN, ESRD adn IDDM , R foot OM s/p TMA due to MRSA infections , who presented for a flap reconstruction # Left foot wound with flap: follow with Dr. Hunt as an out patient , no need for wound vac. Patient can go home today. # H/o PVD : Cont plavix # H/o ESRD : cont HD per schedule # DM: cont levemir and SSI # HTN: on minoxidil, and norvasc continue discussed with , can go home today no need for Wound Vac as per .
== END 2016-12-23 16:24 | disposition home or self-care (01) | DRG 623 ==
LOC: SUATTDRO 10:56 → JASU-SURG 10:56 → J6S 20:10 → JASU-SURG 20:11 → J6S 20:11
PROVIDERS: ADMIT Internal Medicine; ATTEND Internal Medicine
PROC: 0HRMX74 Replacement of Right Foot Skin with Autologous Tissue Substitute, Partial Thickness, External Approach (ICD-10-PCS; 2016-12-16)
PROC: 0HBHXZZ Excision of Right Upper Leg Skin, External Approach (ICD-10-PCS; 2016-12-16)
PROC: 0JBQ0ZZ Excision of Right Foot Subcutaneous Tissue and Fascia, Open Approach (ICD-10-PCS; principal; 2016-12-16 14:00)
DX: E11.621 Type 2 diabetes mellitus with foot ulcer (principal); L97.419 Non-pressure chronic ulcer of right heel and midfoot with unspecified severity; M86.9 Osteomyelitis, unspecified; I12.0 Hypertensive chronic kidney disease with stage 5 chronic kidney disease or end stage renal disease; E87.1 Hypo-osmolality and hyponatremia; E11.69 Type 2 diabetes mellitus with other specified complication; E11.22 Type 2 diabetes mellitus with diabetic chronic kidney disease; N18.6 End stage renal disease; E87.5 Hyperkalemia; E83.39 Other disorders of phosphorus metabolism; Z79.4 Long term (current) use of insulin; Z89.421 Acquired absence of other right toe(s); Z99.2 Dependence on renal dialysis; Z79.84 Long term (current) use of oral hypoglycemic drugs; I16.0 Hypertensive urgency; I73.9 Peripheral vascular disease, unspecified; Z76.82 Awaiting organ transplant status; D63.1 Anemia in chronic kidney disease; N25.0 Renal osteodystrophy
CPT/HCPCS: 36415; 80048; 80053; 82565; 83036; 83735; 84100; 84132; 84520; 85025; 85027; 86704; 86706; 86708; 86803; 87070; 87205; 87340; 88304-TC; 93931; 94760; G0277; J0885; J1644

== ENCOUNTER 2017-05-24 13:34 | Inpatient (IN) | payer OTHER ==
[2017-05-25 17:42] VITALS: BMI 26.5
[2017-05-27 14:05] VITALS: BP 149/83; PULSE 76; TEMP 98.2
== END 2017-05-27 17:48 | disposition home or self-care (01) | DRG 270 ==
LOC: JER 13:34 → JERBED 15:37 → J6S 05-25 20:44
PROVIDERS: ADMIT Specialist; ATTEND Specialist
PROC: 04CP3ZZ Extirpation of Matter from Right Anterior Tibial Artery, Percutaneous Approach (ICD-10-PCS; principal; 2017-05-25)
PROC: 0JBQ0ZZ Excision of Right Foot Subcutaneous Tissue and Fascia, Open Approach (ICD-10-PCS; 2017-05-25)
PROC: 047P3ZZ Dilation of Right Anterior Tibial Artery, Percutaneous Approach (ICD-10-PCS; 2017-05-25)
PROC: B40FYZZ Plain Radiography of Right Lower Extremity Arteries using Other Contrast (ICD-10-PCS; 2017-05-25)
PROC: 5A1D70Z Performance of Urinary Filtration, Intermittent, Less than 6 Hours Per Day (ICD-10-PCS; 2017-05-26)
DX: E11.51 Type 2 diabetes mellitus with diabetic peripheral angiopathy without gangrene (principal); N18.6 End stage renal disease; T87.43 Infection of amputation stump, right lower extremity; I12.0 Hypertensive chronic kidney disease with stage 5 chronic kidney disease or end stage renal disease; L97.418 Non-pressure chronic ulcer of right heel and midfoot with other specified severity; M86.9 Osteomyelitis, unspecified; I70.291 Other atherosclerosis of native arteries of extremities, right leg; Y83.8 Other surgical procedures as the cause of abnormal reaction of the patient, or of later complication, without mention of misadventure at the time of the procedure; D64.9 Anemia, unspecified; E11.22 Type 2 diabetes mellitus with diabetic chronic kidney disease; Z99.2 Dependence on renal dialysis; E11.621 Type 2 diabetes mellitus with foot ulcer; E11.69 Type 2 diabetes mellitus with other specified complication; A49.02 Methicillin resistant Staphylococcus aureus infection, unspecified site
CPT/HCPCS: 11042; 36415; 71045-TC-FY; 76000-TC-FY; 80048; 80053; 82962; 84100; 84132; 84484; 85025; 85027; 85610; 85651; 86140; 86704; 86706; 86708; 87040; 87070; 87186; 87205; 87340; 93005; 93010; 94760; 99285-25; G0480; J1644; J7030

== ENCOUNTER 2018-03-02 07:46 | Inpatient (IN) | payer OTHER ==
[2018-03-02 07:55] VITALS: BMI 28.7
[2018-03-02 09:40] LABS: HEMATOCRIT 33.1 % (35.4-49); HEMOGLOBIN 11.4 GM/dL (11.7-16.9); LYMPH % 18.2 % (8-40); MCH 29.8 pg (25.7-33.7); MCHC 34.4 g/dl (32.0-35.9); MEAN CELL VOLUME 86.8 fl (80-96); MEAN PLT VOLUME 7.4 fl (7.5-11.1); MONO % 11.2 % (3.8-10.2); NEUT % 66.6 % (42.8-82.8); PLATELET COUNT 171 K/MM3 (134-434); RBC 3.81 M/mm3 (4.00-5.60); WHITE BLOOD COUNT 7.1 K/mm3 (4.0-10.0)
[2018-03-02 09:53] LABS: INR 1.08 (0.83-1.09); PROTHROMBIN TIME (PATIENT) 12.8 SEC (9.7-13.0)
[2018-03-02 10:26] LABS: ALBUMIN 3.8 g/dl (3.4-5.0); ALK PHOS 155 U/L (45-117); ANION GAP 13 MMOL/L (8-16); BILIRUBIN,TOTAL 0.5 mg/dL (0.2-1); BLOOD UREA NITROGEN 96 mg/dL (7-18); CALCIUM 7.9 mg/dL (8.5-10.1); CHLORIDE 98 mmol/L (98-107); CO2 25 mmol/L (21-32); GLUCOSE,RANDOM 129 mg/dL (74-106); POTASSIUM 5.9 mmol/L (3.5-5.1); SGOT/AST 28 U/L (15-37); SGPT/ALT 47 U/L (13-61); SODIUM 136 mmol/L (136-145); TOT PROT 7.8 g/dl (6.4-8.2)
[2018-03-02] MEDS ORDERED: INSULIN REGULAR HUMAN 100 UNITS/ML *VIAL IVPUSH ONE (10:42)
[2018-03-02] MEDS ORDERED: ALBUTEROL SO4 0.083% IH SOL 2.5 MG/3 ML VIAL.NEB. NEB ONE ×2 (10:42→11:26)
[2018-03-02] MEDS ORDERED: DEXTROSE 50%-WATER - 25 GM/50 ML VIAL IVPUSH ONE (10:42)
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
[2018-03-02 10:56] LABS: CREATININE 13.1 mg/dL (0.55-1.3)
[2018-03-02] MEDS ORDERED: INSULIN REGULAR HUMAN 100 UNITS/ML *VIAL ONE (11:19)
[2018-03-02] MEDS ORDERED: DEXTROSE 50%-WATER 25 GM/50 ML DISP.SYRIN ONE (11:20)
--- NOTE | 2018-03-02 11:26 | PDOC ---
Attending Attestation - Resident Resident Name: PaulinogwendolynChase - ED Attending Attestation I have performed the following: I have examined & evaluated the patient, The case was reviewed & discussed with the resident, I agree w/resident's findings & plan - HPI HPI: 03/02/18 11:24 57 year old diabetic male with R TMA stump plantar diabetic ulcer, hypertensive nephrosclerosis, ESRD on HD (//), Left AVG stenosis presenting with occluded graft today at HD. unable to get HD today PMD Dr Garrett - Physicial Exam PE: 03/02/18 11:24 NAD, well appearing, PERRL, EOMI, MMM, nl conjunctiva, anicteric; neck supple. lungs clear, RRR, abdomen soft nontender. YU x4. No peripheral edema. normal color for ethnicity, WWP. left AVG no bruit, no palp thrill; palpated AVG site in LUE. - Medical Decision Making 03/02/18 11:25 hpi as documented VS wnl. basic labs and lytes with hyper-K, EKG with peaked T waves missed HD< will give dextrose/insulin, albuterol and shift K in meantime occluded AVG clinically, preop , txs performed. Cr at baseline with ESRD, will need HD today. [facility] cs with Dr Mondragon for venogram and management, awaiting call back called to Dr Garrett, requests Dr mondragon input as this can be performed ASU admit for hyperkalemia, AVG eval surgically for thrombosis/occlusion and management. 03/02/18 11:26 03/02/18 14:32 Heart Score/ECG Review - ECG Impressions Normal ECG: No Comment:: 03/02/18 14:34 EKG normal sinus rhythm, no interval abnormalities, narrow QRS, ST and T wave segments and morphology normal. peaked T waves, nonspecific TWI in I, AVL.
--- NOTE | 2018-03-02 14:36 | EKG ---
Test Reason : Blood Pressure : / mmHG Vent. Rate : 071 BPM Atrial Rate : 071 BPM P-R Int : 362 ms QRS Dur : 088 ms QT Int : 426 ms P-R-T Axes : 065 -01 135 degrees QTc Int : 462 ms SINUS RHYTHM WITH 1ST DEGREE A-V BLOCK LOW VOLTAGE QRS T WAVE ABNORMALITY, CONSIDER LATERAL ISCHEMIA PROLONGED QT ABNORMAL ECG WHEN COMPARED WITH ECG OF 13-AUG-2017 14:43, NO SIGNIFICANT CHANGE WAS FOUND Confirmed by ZAK LO MD ([id number]) on 03/02/2018 2:35:42 PM Referred By: Confirmed By:ZAK LO MD
[2018-03-02] MEDS ORDERED: MIDAZOLAM HCL 2 MG/2 ML SINGLE DOSE VIAL ONE ×3 (15:09→16:52)
[2018-03-02] MEDS ORDERED: PROPOFOL 20 ML ONE (15:12)
[2018-03-02] MEDS ORDERED: LIDOCAINE HCL/PF 2% SDV 5ML VIAL ONE (15:12)
[2018-03-02] MEDS ORDERED: ONDANSETRON 4 MG/2 ML VIAL IVPUSH PRN (15:18)
[2018-03-02] MEDS ORDERED: SODIUM CHLORIDE 250 ML IV PRN (15:48)
[2018-03-02] MEDS ORDERED: ceFAZolin SODIUM 1 GM VIAL IVPB ONE (15:58)
[2018-03-02] MEDS ORDERED: ceFAZolin SODIUM 1 GM VIAL ONE (16:08)
[2018-03-02] MEDS ORDERED: SODIUM CHLORIDE 0.9% P/F 10 ML VIAL IJ ONE (16:08)
[2018-03-02] MEDS ORDERED: LIDOCAINE HCL 1%, 10 MG/ML (50 mL VIAL) IJ ONE ×2 (16:23)
[2018-03-02] MEDS ORDERED: SUCCINYLCHOLINE CHLORIDE 200 MG/10 ML VIAL ONE (17:30)
--- NOTE | 2018-03-02 18:07 | PN ---
Progress Note (short form) - Note Progress Note: Vascular Surgery Attempted left avg declot. Could not open. Placed left IJ permacath . Pt will need outpt vein mapping and new access in right arm next week. Lee Araiza DO
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
--- NOTE | 2018-03-02 18:23 | OP ---
Operative Note - Note: Operative Date: 03/02/18 Pre-Operative Diagnosis: Clotted left avg Operation: Attempted declot of left avg, Insertion of left IJ permacath Post-Operative Diagnosis: Same as Pre-op Surgeon: Lee Araiza Anesthesia: Fractional Estimated Blood Loss (mls): 50 Operative Report Dictated: Yes
--- NOTE | 2018-03-02 18:48 | CONSULT ---
Consult Consult Specialty:: Internal medicine Reason for Consultation:: Medical management of DM - History of Present Illness Chief Complaint: Cloatted left arm HD access (graft) History of Present Illness: Pt with ESRD on HD on Tue went to HD today but was unable to receive HD secondary to difficult access. pt was referred to ER, saw Dr. Araiza and went to OR. Left AV graft is clotted and pt received an left port-a-cath. Case was d/w Dr. Araiza at bedside ( in recovery room). - History Source History Provided By: Patient, Significant Other (Dr. Araiza) - Past Medical History Cardio/Vascular: Yes: HTN Renal/: Yes: Renal Failure, Hemodialysis (on maintenance HD 2/2 hypertensive nephrosclerosis since 2013; on transplant list @ [place]) Infectious Disease: Yes: Other Musculoskeletal: Yes: Other (remote hx of L foot fracture/sports trauma ) Endocrine: Yes: Diabetes Mellitus - Past Surgical History Past Surgical History: Yes: Amputation (TMA on 08/10, Revision on 08/21) - Alcohol/Substance Use Hx Alcohol Use: No History of Substance Use: reports: None - Smoking History Smoking history: Never smoked Have you smoked in the past 12 months: No Aproximately how many cigarettes per day: 0 - Social History Usual Living Arrangement: With Significant Other ADL: Independent Occupation: not working History of Recent Travel: Yes ([facility]) Home Medications - Allergies Allergies/Adverse Reactions: Allergies Allergy/AdvReac Type Severity Reaction Status Date / Time No Known Drug Allergies Allergy Verified 09/27/17 10:59 - Home Medications Home Medications: Ambulatory Orders Minoxidil [Loniten -] 10 mg PO BID 07/21/16 Torsemide 100 mg PO DAILY 07/21/16 Calcium Acetate [Phoslo -] 667 mg PO TIDCM 08/09/16 Insulin (Levemir) [Levemir Flexpen -] 6 units SQ HS PRN 08/09/16 Acetaminophen [Tylenol .Regular Strength -] 650 mg PO Q6H PRN #30 tablet MDD 4 03/03/18 Family Disease History - Family Disease History Family Disease History: Diabetes: Father (HTN), Mother (HTN), Heart Disease: Father, Mother Review of Systems - Review of Systems Constitutional: denies: Chills, Fever Eyes: denies: Blurred Vision, Recent Change in Vision HENT: denies: Ear Discharge, Nasal Congestion, Throat Pain Neck: denies: Pain on Movement, Stiffness Cardiovascular: denies: Chest Pain, Edema, Palpitations Respiratory: denies: Cough, SOB, Wheezing Gastrointestinal: denies: Abdominal Pain, Nausea, Vomiting Genitourinary: denies: Burning, Dysuria Neurological: denies: Change in LOC, Change in Speech, Confusion, Numbness, Weakness Endocrine: denies: Excessive Sweating, Intolerance to Cold Hematology/Lymphatic: reports: Excessive Bleeding (secondary to Plavix). denies : Easily Bruised Psychiatric: denies: Altered Sleep Pattern, Anxiety, Depression Physical Exam Vital Signs: Vital Signs Temperature 98 F 03/02/18 17:59 Pulse Rate 65 03/02/18 18:30 Respiratory Rate 18 03/02/18 18:30 Blood Pressure 165/71 03/02/18 18:30 O2 Sat by Pulse Oximetry (%) 100 03/02/18 18:30 Constitutional: Yes: No Distress, Calm Eyes: Yes: Conjunctiva Clear, EOM Intact HENT: Yes: Normocephalic. No: Epistaxis, Pharyngeal Erythema, Rhinnorhea Neck: Yes: Trachea Midline. No: Lymphadenopathy Cardiovascular: Yes: Regular Rate and Rhythm, S1, S2 Respiratory: Yes: Regular, CTA Bilaterally. No: Rales Gastrointestinal: Yes: Normal Bowel Sounds, Soft. No: Tenderness ...Rectal Exam: Yes: Deferred Extremities: Yes: Amputation (right front foot) Edema: No Neurological: Yes: Alert, Oriented, Other (motor and sensory grossly symmetric in UE/ LE/ face) Psychiatric: Yes: Alert, Oriented Labs: CBC, BMP 03/02/18 09:30 03/02/18 09:30 Problem List - Problems (1) Clotted renal dialysis AV graft Code(s): T82.868A - THROMBOSIS DUE TO VASCULAR PROSTH DEV/GRFT, INIT Qualifiers: Encounter type: initial encounter Qualified Code(s): T82.868A - Thrombosis due to vascular prosthetic devices, implants and grafts, initial encounter (2) ESRD (end stage renal disease) on dialysis Code(s): N18.6 - END STAGE RENAL DISEASE; Z99.2 - DEPENDENCE ON RENAL DIALYSIS (3) Diabetes mellitus Code(s): E11.9 - TYPE 2 DIABETES MELLITUS WITHOUT COMPLICATIONS (4) Hematuria Code(s): R31.9 - HEMATURIA, UNSPECIFIED Qualifiers: Hematuria type: gross Qualified Code(s): R31.0 - Gross hematuria (5) HTN (hypertension) Code(s): I10 - ESSENTIAL (PRIMARY) HYPERTENSION Qualifiers: Hypertension type: essential hypertension Qualified Code(s): I10 - Essential (primary) hypertension Assessment/Plan HD tonight through new left perm-a-cath Vasc surgery intervention is appreciated. Renal consult BGM monitoring Plavix is on hold for upcoming eye surgery (on Tuesday). Cont other med.
[2018-03-02] MEDS: HEPARIN NA (PORCINE) 5,000 UNITS/ML 1ML VIAL IVPUSH SCH ×3 (19:30→21:30)
[2018-03-02] MEDS ORDERED: HEPARIN NA (PORCINE) 5,000 UNITS/ML 1ML VIAL IVPUSH ONE (19:45)
[2018-03-02] MEDS ORDERED: INSULIN (LEVEMIR) 100 UNITS/ML UNITS SQ SCH (22:00)
[2018-03-02] MEDS: INSULIN SLIDING SCALE (NOVOLOG) 1 VIAL SQ SCH (23:16)
[2018-03-03] MEDS ORDERED: ACETAMINOPHEN 325 MG TABLET (FP) PO PRN (00:08)
[2018-03-03] MEDS: MINOXIDIL 10 MG TABLET PO SCH ×3 (00:10→10:44)
[2018-03-03] MEDS: INSULIN SLIDING SCALE (NOVOLOG) 1 VIAL SQ SCH ×2 (06:22→10:52)
[2018-03-03] MEDS ORDERED: INSULIN (LEVEMIR) 100 UNITS/ML UNITS SQ ONE (07:03)
[2018-03-03] MEDS ORDERED: INSULIN SLIDING SCALE (NOVOLOG) 1 VIAL SQ ONE (07:03)
[2018-03-03] MEDS ORDERED: TORSEMIDE 100 MG TABLET PO SCH (10:00)
--- NOTE | 2018-03-03 10:13 | PN ---
Progress Note, Physician History of Present Illness: Pt w/o SOB, CP, palp, abd pain. He tolerated HD well. - Current Medication List Current Medications: Active Medications Acetaminophen (Tylenol -) 650 mg PO Q6H PRN PRN Reason: FEVER/PAIN LEVEL 1-5 Last Admin: 03/03/18 01:03 Dose: 650 mg Insulin Aspart (Novolog Vial Sliding Scale -) 1 vial SQ [facility]; Protocol Last Admin: 03/03/18 06:22 Dose: Not Given Insulin Detemir (Levemir Vial) 6 units SQ HS [facility] Last Admin: 03/02/18 23:15 Dose: 6 units Minoxidil (Loniten -) 10 mg PO BID [facility] Last Admin: 03/03/18 01:00 Dose: Not Given Ondansetron HCl (Zofran Injection) 4 mg IVPUSH Q6H PRN PRN Reason: NAUSEA AND/OR VOMITING Torsemide (Demadex -) 100 mg PO DAILY [facility] - Objective Vital Signs: Vital Signs Temperature 98.5 F 03/03/18 06:00 Pulse Rate 81 03/03/18 06:00 Respiratory Rate 16 03/03/18 06:00 Blood Pressure 124/62 03/03/18 06:00 O2 Sat by Pulse Oximetry (%) 94 L 03/03/18 01:27 Constitutional: Yes: No Distress, Calm Cardiovascular: Yes: Regular Rate and Rhythm, Murmur, S1, S2 Respiratory: Yes: Regular, CTA Bilaterally. No: Rales Gastrointestinal: Yes: Normal Bowel Sounds, Soft. No: Tenderness Edema: No Wound/Incision: Yes: Other (left Perm-a-cath site: clean dressing, no pain with palpation, no erythema.) Neurological: Yes: Alert, Oriented Labs: CBC, BMP 03/02/18 09:30 03/02/18 09:30 INR, PTT INR 1.08 (0.83-1.09) 03/02/18 09:30 Problem List - Problems (1) Clotted renal dialysis AV graft Code(s): T82.868A - THROMBOSIS DUE TO VASCULAR PROSTH DEV/GRFT, INIT Qualifiers: Encounter type: initial encounter Qualified Code(s): T82.868A - Thrombosis due to vascular prosthetic devices, implants and grafts, initial encounter (2) ESRD (end stage renal disease) on dialysis Code(s): N18.6 - END STAGE RENAL DISEASE; Z99.2 - DEPENDENCE ON RENAL DIALYSIS (3) Diabetes mellitus Code(s): E11.9 - TYPE 2 DIABETES MELLITUS WITHOUT COMPLICATIONS (4) Hematuria Code(s): R31.9 - HEMATURIA, UNSPECIFIED Qualifiers: Hematuria type: gross Qualified Code(s): R31.0 - Gross hematuria (5) HTN (hypertension) Code(s): I10 - ESSENTIAL (PRIMARY) HYPERTENSION Qualifiers: Hypertension type: essential hypertension Qualified Code(s): I10 - Essential (primary) hypertension Assessment/Plan s/p left IJ perm-a-cath placement last night. Vasc surgery intervention is appreciated; to f/u about DC home. Renal consult BGM monitoring -to change it to BIDAC (pt at home checking it QD) Plavix is on hold for upcoming eye surgery (on Tuesday). Cont other med.
--- NOTE | 2018-03-03 10:32 | PN ---
Progress Note (short form) - Note Progress Note: surgery POD #1 left arm Attempted declot of left avg, Insertion of left IJ permacath placement. Patient seen and examined at bedside with no complaints. He was dialyzed last night throught the permacath and 2L of fluid were removed. PPatient is tolerating his diet and denies any CP, SOB, N/V fever or chills. Vital Signs Temp 98.5 F 03/03/18 06:00 Pulse 81 03/03/18 06:00 Resp 16 03/03/18 06:00 BP 124/62 03/03/18 06:00 Pulse Ox 94 L 03/03/18 01:27 Intake & Output 03/02/18 03/02/18 03/03/18 11:59 23:59 11:59 Intake Total 300 620 Output Total 50 Balance 250 620 Weight 200 lb 200 lb Intake: IV 300 Oral 620 Output: Urine 0 Estimated Blood Loss 50 Other: Voiding Method Urinal Toilet Bowel Movement No Height 5 ft 10 in 5 ft 10 in Body Mass Index (BMI) 28.7 28.7 Weight Measurement Method Standing Scale Weight Measurement Method Est/Stated by Patient CBC, BMP 03/02/18 09:30 03/02/18 09:30 PE: A&Ox3, NAD Unlabored resp on RA Left UE with aneurysm of AVG, no thrill noted. Left IJ PC site c/d/i with surrounding tissue intact and no tracking erythema or edema, no active d/c. Problem List - Problems (1) Clotted renal dialysis AV graft Assessment/Plan: POD #1 attempted declot of AVG and Permacath placement, dialysis last night. 1) Dialysis via permacath per renal 2) keep Permacath site clean, dry and secure 3) Plan for AVF on right UE as out patient- scheduled to see Dr Araiza in [facility] next tuesday Evaluation and plan discussed [facility] Dr Araiza Code(s): T82.868A - THROMBOSIS DUE TO VASCULAR PROSTH DEV/GRFT, INIT Qualifiers: Encounter type: initial encounter Qualified Code(s): T82.868A - Thrombosis due to vascular prosthetic devices, implants and grafts, initial encounter
[2018-03-03] MEDS ORDERED: PT OWN MED DRAWER 7, Y5N ONE (10:38)
[2018-03-03 10:49] VITALS: BP 164/90; PULSE 67; TEMP 97.6
--- NOTE | 2018-03-03 11:43 | CONSULT ---
Consult - text type - Consultation Consultation Note: Renal Consult for ESRD/Hyperkalemia/Dialysis access dysfunction This is a 57 year old gentleman with hx of ESRD on HD (TTS), Hypertension, DM who presented with a clotted AVG. Pt had a K of 5.9. AVG was not able be be de- clotted and tunneled HD catheter was placed. Pt had dialysis yesterday evening thorough the catheter. Tolerated it well. No acute complaints this am. No SOB, CP, Abd pain, N/V/D. PMhx: as above Allergies: NKDA Family Hx: NC Social Hx: No T/A/D ROS: as per HPI Home Medications Medication Instructions Recorded Minoxidil [Loniten -] 10 mg PO BID 07/21/16 Torsemide 100 mg PO DAILY 07/21/16 Calcium Acetate [Phoslo -] 667 mg PO TIDCM 08/09/16 Insulin (Levemir) [Levemir Flexpen 6 units SQ HS PRN 08/09/16 -] Clopidogrel Bisulfate [Plavix -] 75 mg PO DAILY #30 tablet 11/10/16 Vital Signs Temperature 97.6 F 03/03/18 10:00 Pulse Rate 67 03/03/18 10:00 Respiratory Rate 18 03/03/18 10:00 Blood Pressure 164/90 03/03/18 10:00 O2 Sat by Pulse Oximetry (%) 95 03/03/18 09:00 Intake & Output 02/28/18 03/01/18 03/02/18 03/03/18 23:59 23:59 23:59 23:59 Intake Total 300 620 Output Total 50 Balance 250 620 Weight 90.718 kg NAD awake and alert left IJ tunneled catheter RRR CTA No LE edema CBC, BMP 03/02/18 09:30 03/02/18 09:30 Current Medications Acetaminophen (Tylenol -) 650 mg PO Q6H PRN PRN Reason: FEVER/PAIN LEVEL 1-5 Last Admin: 03/03/18 01:03 Dose: 650 mg Insulin Aspart (Novolog Vial Sliding Scale -) 1 vial SQ [facility]; Protocol Last Admin: 03/03/18 10:52 Dose: Not Given Insulin Detemir (Levemir Vial) 6 units SQ HS [facility] Last Admin: 03/02/18 23:15 Dose: 6 units Minoxidil (Loniten -) 10 mg PO BID [facility] Last Admin: 03/03/18 10:44 Dose: 10 mg Ondansetron HCl (Zofran Injection) 4 mg IVPUSH Q6H PRN PRN Reason: NAUSEA AND/OR VOMITING Torsemide (Demadex -) 100 mg PO DAILY [facility] 57 year old gentleman with hx of ESRD on HD (TTS), Hypertension, DM who presented with a clotted AVG. Pt had a K of 5.9. AVG was not able be be de- clotted and tunneled HD catheter was placed. #ESRD on HD #Clotted AVG #Hyperkalemia #Hypertenson s/p permacath placement pt advised to be very cautious with catheter and keep it clean will need new AV access placed by vascular surgery, Dr. Araiza following s/p HD yesterday evening, no acute indication for [employer] today can resume dialysis tomorrow as an outpatient BP at goal, continue present meds Stable for discharge Thank you mC Torres DO
--- NOTE | 2018-03-03 13:41 | DS ---
Physical Examination Vital Signs: Vital Signs Temperature 97.6 F 03/03/18 10:00 Pulse Rate 67 03/03/18 10:00 Respiratory Rate 18 03/03/18 10:00 Blood Pressure 164/90 03/03/18 10:00 O2 Sat by Pulse Oximetry (%) 95 03/03/18 09:00 Findings/Remarks: See Progress Note for ROS, PE, Plan Labs: CBC, BMP 03/02/18 09:30 03/02/18 09:30 Discharge Summary Reason For Visit: THROMBOSIS OF KIDNEY,ARTERIOVENOUS GRAFT,DIALYSIS Current Active Problems Acute hyperkalemia (Acute) Anemia in ESRD (end-stage renal disease) (Acute) Clotted renal dialysis AV graft (Acute) ESRD (end stage renal disease) on dialysis (Acute) Hospital Course: Pt came to ER from HD center for clotted left arm graft. Pt was taken t OR, had left IJ perm-a-cath placed; pt had HD through perm-a-cath, tolerated it well. Pt to return for right arm mapping on Tuesday, with Dr. Araiza Condition: Guarded - Instructions Diet, Activity, Other Instructions: resume diet To follow-up for right arm mapping on Tuesday, with Dr. Araiza Referrals: Mat Garrett MD [Primary Care Provider] - (as scheduled or PRN) Disposition: HOME - Home Medications Comprehensive Discharge Medication List: Ambulatory Orders
--- NOTE | 2018-03-03 22:18 | OP ---
DATE OF OPERATION: 03/02/2018 PREOPERATIVE DIAGNOSIS: Clotted left arteriovenous graft. POSTOPERATIVE DIAGNOSIS: Clotted left arteriovenous graft. PROCEDURE: Insertion of PermCath. SURGEON: Lee Rutherford DO ANESTHESIA: Fractional. BLOOD LOSS: 50 mL The patient is a 57-year-old male who comes in through the ER with a clotted left AV graft. It was decided that he would need a de-clot, possible PermCath. Patient was consented for the procedure, understanding all risks, benefits, and alternatives, was then taken to the operating room. Once in the operating room, he was laid on the operating table in supine manner, and the area of the left arm was prepped and draped in a sterile surgical manner. 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 The graft seems very calcified with severe disease. At this point, we decided that the graft cannot be salvageable and the patient needs a PermCath. Patient's left neck and chest were then prepped and draped in sterile surgical manner. We then, under ultrasound guidance, we were able to visualize the left internal jugular vein, and 10 mL of lidocaine 1% were injected there. We then took our micropuncture needle and punctured the left internal jugular vein. Micropuncture wire was inserted under fluoroscopy. Micropuncture sheath was inserted and a floppy guidewire was inserted under fluoroscopy. We then went ahead and injected 10 mL of lidocaine 1% above and below the clavicle. We then took an 11 blade and made a 1-cm incision at the puncture site. We took a 15 blade and made a 1-cm incision below the clavicle. We then tunneled the PermCath up to the puncture site. We then placed our breakaway sheath over the guidewire into the vein under fluoroscopy, and the cannula and guidewire were removed. Catheter was placed inside the sheath. Sheath was broken away as the catheter was placed in the vein. Neck of the catheter was nice and smooth. Tip of the catheter was located outside the right atrium. We then went ahead and took 4-0 Biosyn, and 2 simple stitches were placed at the puncture site; 3-0 nylon used, and the catheter was secured to the skin. BIOPATCH, Steri-Strips, 4 x 4's were placed with Tegaderm. Patient tolerated the procedure with no complications. The patient transferred to PACU in stable condition. obtained. Total blood loss 50 mL. LEE RUTHERFORD DO [id number]
[2018-03-05 03:14] LABS: HBSAG SCREEN Negative (Negative); HEP A AB, IGM Negative (Negative); HEP B CORE AB, TOT Negative (Negative)
== END 2018-03-03 15:16 | disposition home or self-care (01) | DRG 314 ==
LOC: JER 07:46 → JERBED 12:29 → OBSVTOIN 18:05 → J4S 22:46
PROVIDERS: ADMIT Specialist; ATTEND Specialist
PROC: B514ZZA Fluoroscopy of Left Jugular Veins, Guidance (ICD-10-PCS; 2018-03-02)
PROC: B544ZZA Ultrasonography of Left Jugular Veins, Guidance (ICD-10-PCS; 2018-03-02)
PROC: 5A1D70Z Performance of Urinary Filtration, Intermittent, Less than 6 Hours Per Day (ICD-10-PCS; 2018-03-02)
PROC: 03JY3ZZ Inspection of Upper Artery, Percutaneous Approach (ICD-10-PCS; principal; 2018-03-02 15:45)
PROC: 05HN33Z Insertion of Infusion Device into Left Internal Jugular Vein, Percutaneous Approach (ICD-10-PCS; 2018-03-02 15:45)
DX: T82.868A Thrombosis due to vascular prosthetic devices, implants and grafts, initial encounter (principal); N18.6 End stage renal disease; I12.0 Hypertensive chronic kidney disease with stage 5 chronic kidney disease or end stage renal disease; I72.1 Aneurysm of artery of upper extremity; E11.22 Type 2 diabetes mellitus with diabetic chronic kidney disease; Z76.82 Awaiting organ transplant status; Z99.2 Dependence on renal dialysis; D63.1 Anemia in chronic kidney disease; E87.5 Hyperkalemia; Z79.4 Long term (current) use of insulin; Y84.1 Kidney dialysis as the cause of abnormal reaction of the patient, or of later complication, without mention of misadventure at the time of the procedure; Y92.038 Other place in apartment as the place of occurrence of the external cause
CPT/HCPCS: 11042; 15275; 36415; 71045-TC-FY; 73130-TC-LT-FY; 76000-TC-FY; 80053; 82962; 85025; 85610; 86704; 86706; 86708; 86803; 86850; 86900; 86901; 87340; 93005; 93010; 94760; 99281-25; G0378; G0463-25; J1644; Q4196

== ENCOUNTER 2018-03-23 06:53 | Inpatient (IN) | payer OTHER ==
[2018-03-21 15:42] VITALS: BMI 28.7
[2018-03-23 07:39] LABS: POTASSIUM 4.8 mmol/L (3.5-5.1)
[2018-03-23] MEDS ORDERED: POVIDONE-IODINE OINTMENT 10% - 28.4 GM TUBE ONE (07:40)
[2018-03-23] MEDS ORDERED: LIDOCAINE HCL 1%, 10 MG/ML (20ML VIAL) ONE (07:40)
[2018-03-23] MEDS ORDERED: HEPARIN NA (PORCINE) 5,000 UNITS/ML 1ML VIAL ONE ×2 (07:40→10:15)
[2018-03-23] MEDS ORDERED: SUCCINYLCHOLINE CHLORIDE 200 MG/10 ML VIAL ONE (08:37)
[2018-03-23] MEDS ORDERED: MIDAZOLAM HCL 2 MG/2 ML SINGLE DOSE VIAL ONE ×3 (08:37→09:36)
[2018-03-23] MEDS ORDERED: PROPOFOL 20 ML ONE (08:37)
[2018-03-23] MEDS ORDERED: ROPIVACAINE HCL 0.5% 30ML VIAL ONE (08:53)
[2018-03-23] MEDS ORDERED: ceFAZolin SODIUM 1 GM VIAL ONE (09:14)
[2018-03-23] MEDS ORDERED: ceFAZolin SODIUM 1 GM VIAL IVPB ONE (09:15)
[2018-03-23] MEDS ORDERED: LIDOCAINE HCL 1%, 10 MG/ML (50 mL VIAL) IJ ONE (09:38)
[2018-03-23] MEDS ORDERED: oxyCODONE HCL 5 MG TABLET PO PRN (10:34)
[2018-03-23] MEDS ORDERED: ONDANSETRON 4 MG/2 ML VIAL IVPUSH PRN ×2 (10:34→11:55)
[2018-03-23] MEDS ORDERED: LACTATED RINGERS SOLUTION 1,000 ML IV SCH ×2 (10:45→11:55)
--- NOTE | 2018-03-23 11:49 | OP ---
Operative Note - Note: Operative Date: 03/23/18 Pre-Operative Diagnosis: ESRD Operation: Creation of right radial-cephalic vein fistula Post-Operative Diagnosis: Same as Pre-op Surgeon: Lee Araiza Anesthesia: Fractional Estimated Blood Loss (mls): 50 Operative Report Dictated: Yes
--- NOTE | 2018-03-23 11:52 | HP ---
Admitting History and Physical - Admission Chief Complaint: Pt here for creation of right avf. Limitations to Obtaining History: No Limitations - Past Medical History Cardiovascular: Yes: HTN Renal/: Yes: Renal Failure, Hemodialysis (on maintenance HD 2/2 hypertensive nephrosclerosis since 2013; on transplant list @ [facility]) Heme/Onc: Yes: Anemia Infectious Disease: Yes: Other Musculoskeletal: Yes: Other (remote hx of L foot fracture/sports trauma ) Endocrine: Yes: Diabetes Mellitus - Past Surgical History Past Surgical History: Yes: Amputation (TMA on 08/10, Revision on 08/21) - Smoking History Smoking history: Never smoked Have you smoked in the past 12 months: No Aproximately how many cigarettes per day: 0 - Alcohol/Substance Use Hx Alcohol Use: No History of Substance Use: reports: None - Social History ADL: Independent Occupation: not working History of Recent Travel: Yes ([facility]) Home Medications - Allergies Allergies/Adverse Reactions: Allergies Allergy/AdvReac Type Severity Reaction Status Date / Time No Known Drug Allergies Allergy Verified 03/23/18 07:51 - Home Medications Home Medications: Ambulatory Orders Minoxidil [Loniten -] 10 mg PO BID 07/21/16 Torsemide 100 mg PO DAILY 07/21/16 Calcium Acetate [Phoslo -] 667 mg PO TIDCM 08/09/16 Insulin (Levemir) [Levemir Flexpen -] 6 units SQ HS PRN 08/09/16 Clopidogrel Bisulfate [Plavix] 75 mg PO DAILY 03/21/18 Family Disease History - Family Disease History Family Disease History: Diabetes: Father (HTN), Mother (HTN), Heart Disease: Father, Mother Review of Systems - Review of Systems Constitutional: reports: No Symptoms Eyes: reports: No Symptoms HENT: reports: No Symptoms Neck: reports: No Symptoms Cardiovascular: reports: No Symptoms Respiratory: reports: No Symptoms Gastrointestinal: reports: No Symptoms Genitourinary: reports: No Symptoms Musculoskeletal: reports: No Symptoms Integumentary: reports: No Symptoms Neurological: reports: No Symptoms Endocrine: reports: No Symptoms Hematology/Lymphatic: reports: No Symptoms Physical Examination Vital Signs: Vital Signs Temperature 97.3 F L 03/23/18 07:45 Pulse Rate 71 03/23/18 07:45 Respiratory Rate 20 03/23/18 07:45 Blood Pressure 144/78 03/23/18 07:45 O2 Sat by Pulse Oximetry (%) 97 03/23/18 07:44 Constitutional: Yes: Well Nourished, No Distress, Calm Eyes: Yes: WNL, Conjunctiva Clear, EOM Intact HENT: Yes: WNL, Atraumatic, Normocephalic Neck: Yes: WNL, Supple, Trachea Midline Cardiovascular: Yes: WNL, Regular Rate and Rhythm Respiratory: Yes: WNL, Regular, CTA Bilaterally Gastrointestinal: Yes: WNL, Normal Bowel Sounds Renal/: Yes: WNL Musculoskeletal: Yes: WNL Extremities: Yes: WNL Edema: No Peripheral Pulses WNL: Yes Integumentary: Yes: WNL Neurological: Yes: WNL, Alert, Oriented ...Motor Strength: WNL Psychiatric: Yes: WNL Labs: CBC, BMP 03/23/18 07:03 Problem List - Problems (1) ESRD (end stage renal disease) on dialysis Assessment/Plan: ESRD 1. For creation of avf today Code(s): N18.6 - END STAGE RENAL DISEASE; Z99.2 - DEPENDENCE ON RENAL DIALYSIS
[2018-03-23] MEDS ORDERED: SODIUM CHLORIDE 250 ML IV PRN (13:12)
--- NOTE | 2018-03-23 13:16 | CONSULT ---
Consult - text type - Consultation Consultation Note: Renal Consult for ESRD on HD This is a 57 year old gentleman with hx of ESRD on HD (TTS), Hypertension, DM, PVD who presented for elective AVF placement. Pt last had dialysis on Tuesday w/ o complication. S/p AVF placement this am. No SOB, CP, Abd pain, N/V/D. PMhx: as above Allergies: NDKA Family Hx: NC Social Hx: No T/A/D ROS: as per HPI Home Medications Medication Instructions Recorded Minoxidil [Loniten -] 10 mg PO BID 07/21/16 Torsemide 100 mg PO DAILY 07/21/16 Calcium Acetate [Phoslo -] 667 mg PO TIDCM 08/09/16 Insulin (Levemir) [Levemir Flexpen 6 units SQ HS PRN 08/09/16 -] Clopidogrel Bisulfate [Plavix] 75 mg PO DAILY 03/21/18 Vital Signs Temperature 98.1 F 03/23/18 11:35 Pulse Rate 66 03/23/18 11:50 Respiratory Rate 16 03/23/18 11:50 Blood Pressure 136/85 03/23/18 11:50 O2 Sat by Pulse Oximetry (%) 95 03/23/18 11:50 Intake & Output 03/20/18 03/21/18 03/22/18 03/23/18 23:59 23:59 23:59 23:59 Intake Total 300 Output Total 50 Balance 250 Weight 90.718 kg NAD awake, drowsy No LE edema left IJ permacath right forearm AVF CBC, BMP 03/23/18 07:03 Current Medications Fentanyl (Sublimaze Injection -) 50 mcg IVPUSH [id number] PRN PRN Reason: PAIN-PACU ORDER X 4 DOSES ONLY Lactated Ringer's (Lactated Ringers Solution) 1,000 mls @ 125 mls/hr IV ASDIR MONIK Sodium Chloride (Normal Saline -) 250 mls @ 3,000 mls/hr IV PRN PRN PRN Reason: Hypotension during Dialysis Stop: 03/24/18 13:12 Ondansetron HCl (Zofran Injection) 4 mg IVPUSH Q6H PRN PRN Reason: NAUSEA AND/OR VOMITING Oxycodone HCl (Roxicodone -) 5 mg PO Q4H PRN PRN Reason: PAIN LEVEL 1-5 57 year old gentleman with hx of ESRD on HD (TTS), Hypertension, DM, PVD who presented for elective AVF placement. Pt last had dialysis on Tuesday w/o complication. #ESRD on HD #New AVF creation #Hypertension #DM will plan for dialysis today as an inpatient resume all home anithypertensives pain control Renal diet Thank you Cm Torres DO
[2018-03-23] MEDS ORDERED: MINOXIDIL 10 MG TABLET PO ONE (22:00)
[2018-03-23] MEDS ORDERED: PT OWN MED DRAWER 7, Y5N ONE (22:40)
[2018-03-23] MEDS: oxyCODONE HCL 5 MG TABLET PO PRN (23:15)
[2018-03-24] MEDS: oxyCODONE HCL 5 MG TABLET PO PRN (06:08)
--- NOTE | 2018-03-24 08:53 | PN ---
Progress Note (short form) - Note Progress Note: Pt seen and examined. States he did well overnight. Pain is well controlled with PO Oxy. Had HD last night. Tolerating PO. Has been oob without issue. Denies cp/sob, n/v/d. Vital Signs Temp 97.9 F 03/23/18 22:00 Pulse 75 03/23/18 22:00 Resp 20 03/23/18 22:00 BP 150/74 03/23/18 22:00 Pulse Ox 94 L 03/23/18 21:00 Intake & Output 03/23/18 03/23/18 03/24/18 11:59 23:59 11:59 Intake Total 350 Output Total 50 0 Balance 300 0 Intake: IV 350 Output: Urine 0 Estimated Blood Loss 50 Other: Voiding Method Urinal CBC, BMP 03/23/18 07:03 Gen: awake, alert, nad Resp: unlabored on RA Ext: RUE with dressing coming off, saturated with betadine and some light spots of blood. Dressing removed. Angelita c/d/i, Palpable thrill. No significant edema. SILT. government clerk strength intact. A/P: 57 y/o M w/ PMHx ESRD on HD (TTS), Hypertension, DM, PVD admitted for HD after elective AVF placement. Had HD last night without issue. Stable this AM Afebrile, VSS. -D/C home this AM, instructions completed. Pt agrees with plan D/w attending Dr Araiza
[2018-03-24] MEDS ORDERED: MINOXIDIL 10 MG TABLET PO ONE (11:30)
[2018-03-24] MEDS ORDERED: PT OWN MED DRAWER 7, Y5N ONE (12:23)
[2018-03-24 14:12] VITALS: BP 155/78; PULSE 78; TEMP 98
--- NOTE | 2018-03-30 09:39 | OP ---
DATE OF OPERATION: 03/23/2018 PREOPERATIVE DIAGNOSIS: End-stage renal disease. POSTOPERATIVE DIAGNOSIS: End-stage renal disease. PROCEDURE: Creation of right radiocephalic arteriovenous fistula. SURGEON: Lee Rutherford MD ANESTHESIA: Fractional with block. BLOOD LOSS: 50 mL. INDICATIONS: The patient is a 57-year-old male who has a malfunctioning left AV graft. It was decided that he would need a new permanent dialysis access in the form of a right radiocephalic vein fistula. Patient was consented for the procedure understanding all risks, benefits, and alternatives. Preoperative in holding area, patient received a right supraclavicular nerve block. DESCRIPTION OF PROCEDURE: We then went ahead and brought the patient to the operating room, and the area of the lower extremity was prepped and draped in a sterile surgical manner. Using ultrasound guidance, we were able to map out our cephalic vein and map out the radial artery, and those were marked on the skin. We then went ahead and made a 5-cm incision over the cephalic vein. Bovie electrocautery was used to control hemostasis, and we were able to dissect out the cephalic vein, and all branches were ligated using 4-0 silk. We then went medially and made a 4-cm incision over the radial artery. Bovie electrocautery was used to control hemostasis, and we were able to get through all the subcutaneous tissue. We then got through the fascia, and we went ahead and dissected out our radial artery anteriorly and posteriorly, and vessel loops were placed proximally and distally. We then administered 5000 units of IV heparin. We then ligated our cephalic vein distally, and we were able to place a 5-Brazilian feeding tube into the vein, and the feeding tube went all the way up to above the elbow, and there was good flow, and the vein dilated appropriately. We then transposed the vein over to the artery. Using Micro Goldstein Scissors, we made a 7-mm venotomy. After 3 minutes to be on IV heparin, we got distal and proximal control on the artery. Using an 11 blade, we made an arteriotomy extending it to 7 mm using Goldstein scissors. Then, 6-0 Prolene stay sutures were placed. We then used 6-0 Prolene double-armed, we went outside-in on the vein and inside out on the artery and ran the stitch around forming an anastomosis suture between the artery and the vein. Once completed, we opened the distal artery first, then the proximal artery, and there was a good thrill in our AV fistula. At this point, we irrigated both wound copiously. There was minimal bleeding. Surgicel was placed, 3-0 Vicryl was used, and subcutaneous tissue was approximated in an interrupted manner, and the skin was closed with skin kait. Area was wet and dried, and 4x4s and Tegaderm were placed. Patient tolerated the procedure with no complications. Patient transferred to PACU in stable condition. LEE RUTHERFORD DO [id number]
== END 2018-03-24 14:11 | disposition home or self-care (01) | DRG 673 ==
LOC: JASUSAT 06:53 → JSAMEDAYSX 11:53 → J4S 18:32
PROVIDERS: ADMIT Surgery Vascular Surgery; ATTEND Surgery Vascular Surgery
PROC: 5A1D70Z Performance of Urinary Filtration, Intermittent, Less than 6 Hours Per Day (ICD-10-PCS; 2018-03-23)
PROC: 031B0ZF Bypass Right Radial Artery to Lower Arm Vein, Open Approach (ICD-10-PCS; principal; 2018-03-23 09:00)
DX: I12.0 Hypertensive chronic kidney disease with stage 5 chronic kidney disease or end stage renal disease (principal); N18.6 End stage renal disease; E11.22 Type 2 diabetes mellitus with diabetic chronic kidney disease; Z99.2 Dependence on renal dialysis; E11.51 Type 2 diabetes mellitus with diabetic peripheral angiopathy without gangrene; Z79.4 Long term (current) use of insulin
CPT/HCPCS: 11042; 15275; 36415; 82947; 84132; 94760; J1644; Q4196

== ENCOUNTER 2018-05-12 12:29 | Day surgery (SDC) | payer OTHER ==
[2018-05-11 10:43] VITALS: BMI 28.7
[2018-05-12 13:21] LABS: POTASSIUM 5.2 mmol/L (3.5-5.1)
[2018-05-12] MEDS ORDERED: HEPARIN NA (PORCINE) 5,000 UNITS/ML 1ML VIAL ONE ×2 (14:21→14:29)
[2018-05-12] MEDS ORDERED: LIDOCAINE HCL 1%, 10 MG/ML (20ML VIAL) ONE (14:21)
[2018-05-12] MEDS ORDERED: PROPOFOL 20 ML ONE (14:28)
[2018-05-12] MEDS ORDERED: MIDAZOLAM HCL 2 MG/2 ML SINGLE DOSE VIAL ONE (14:28)
[2018-05-12] MEDS ORDERED: SODIUM CHLORIDE 0.9% P/F 10 ML VIAL IJ ONE (14:29)
[2018-05-12] MEDS ORDERED: ceFAZolin SODIUM 1 GM VIAL ONE (14:29)
[2018-05-12] MEDS ORDERED: ceFAZolin SODIUM 1 GM VIAL IVPB ONE (14:50)
[2018-05-12] MEDS ORDERED: ePHEDrine SULFATE 50 MG/1 ML AMPULE ONE (15:07)
--- NOTE | 2018-05-12 15:45 | HP ---
Admitting History and Physical - Admission Chief Complaint: Immature right avf. Needs balloon maturation Limitations to Obtaining History: No Limitations - Past Medical History Cardiovascular: Yes: HTN Renal/: Yes: Renal Failure, Hemodialysis (on maintenance HD 2/2 hypertensive nephrosclerosis since 2013; on transplant list @ [facility]) Heme/Onc: Yes: Anemia Infectious Disease: Yes: Other Musculoskeletal: Yes: Other (remote hx of L foot fracture/sports trauma ) Endocrine: Yes: Diabetes Mellitus - Past Surgical History Past Surgical History: Yes: Amputation (TMA on 08/10, Revision on 08/21) - Smoking History Smoking history: Never smoked Have you smoked in the past 12 months: No Aproximately how many cigarettes per day: 0 - Alcohol/Substance Use Hx Alcohol Use: No History of Substance Use: reports: None - Social History ADL: Independent Occupation: not working History of Recent Travel: Yes ([facility]) Home Medications - Allergies Allergies/Adverse Reactions: Allergies Allergy/AdvReac Type Severity Reaction Status Date / Time No Known Drug Allergies Allergy Verified 03/23/18 07:51 - Home Medications Home Medications: Ambulatory Orders Minoxidil [Loniten -] 10 mg PO BID 07/21/16 Torsemide 100 mg PO DAILY 07/21/16 Calcium Acetate [Phoslo -] 667 mg PO TIDCM 08/09/16 Insulin (Levemir) [Levemir Flexpen -] 6 units SQ HS PRN 08/09/16 Clopidogrel Bisulfate [Plavix] 75 mg PO DAILY 03/21/18 Family Disease History - Family Disease History Family Disease History: Diabetes: Father (HTN), Mother (HTN), Heart Disease: Father, Mother Review of Systems - Review of Systems Constitutional: reports: No Symptoms Eyes: reports: No Symptoms HENT: reports: No Symptoms Neck: reports: No Symptoms Cardiovascular: reports: No Symptoms Respiratory: reports: No Symptoms Gastrointestinal: reports: No Symptoms Genitourinary: reports: No Symptoms Musculoskeletal: reports: No Symptoms Integumentary: reports: No Symptoms Neurological: reports: No Symptoms Endocrine: reports: No Symptoms Hematology/Lymphatic: reports: No Symptoms Psychiatric: reports: No Symptoms Physical Examination Vital Signs: Vital Signs Temperature 97.5 F L 05/12/18 13:22 Pulse Rate 62 05/12/18 13:22 Respiratory Rate 18 05/12/18 13:22 Blood Pressure 164/73 05/12/18 13:22 O2 Sat by Pulse Oximetry (%) 100 05/12/18 13:22 Constitutional: Yes: Well Nourished, No Distress, Calm Eyes: Yes: WNL, Conjunctiva Clear, EOM Intact HENT: Yes: WNL, Atraumatic, Normocephalic Neck: Yes: WNL, Supple, Trachea Midline Cardiovascular: Yes: WNL, Regular Rate and Rhythm Respiratory: Yes: WNL, Regular, CTA Bilaterally Gastrointestinal: Yes: WNL, Normal Bowel Sounds Musculoskeletal: Yes: WNL Extremities: Yes: WNL Edema: No Integumentary: Yes: WNL Neurological: Yes: WNL, Alert, Oriented ...Motor Strength: WNL Psychiatric: Yes: WNL Labs: CBC, BMP 05/12/18 12:48 Problem List - Problems (1) Immature arteriovenous fistula Assessment/Plan: for balloon maturation today via venogram/venoplasty Code(s): I77.0 - ARTERIOVENOUS FISTULA, ACQUIRED
--- NOTE | 2018-05-12 15:49 | OP ---
Operative Note - Note: Operative Date: 05/12/18 Pre-Operative Diagnosis: right immature avf Operation: venogram, venoplasaty right avf Post-Operative Diagnosis: Same as Pre-op Surgeon: Lee Araiza Anesthesia: Fractional Estimated Blood Loss (mls): 20 Operative Report Dictated: Yes
[2018-05-12] MEDS ORDERED: ACETAMINOPHEN 325 MG TABLET (FP) ONE (16:00)
[2018-05-12] MEDS ORDERED: ACETAMINOPHEN 325 MG TABLET (FP) PO PRN (16:01)
[2018-05-12] MEDS ORDERED: LACTATED RINGERS SOLUTION 1,000 ML IV SCH (16:15)
--- NOTE | 2018-05-12 17:01 | OP ---
DATE OF OPERATION: 05/12/2018 PREOPERATIVE DIAGNOSIS: Stenosis right arteriovenous fistula, immature right arteriovenous fistula. POSTOPERATIVE DIAGNOSIS: Stenosis right arteriovenous fistula, immature right arteriovenous fistula. PROCEDURE: Venogram, venoplasty, right arteriovenous fistula. SURGEON: Lee Rutherford M.D. ANESTHESIA: Fractional. BLOOD LOSS: 20 mL. INDICATION: The patient is a patient who recently had a radiocephalic AV fistula created, the vein is only 5 mm in the forearm and needs to be matured. Patient was consented for the procedure understanding all risks, benefits, and alternatives and came in through ambulatory surgery. DESCRIPTION OF PROCEDURE: The patient was then brought into the room and laid down on the operating table in a supine manner, and the area of the right arm are prepped and draped in a sterile surgical manner. Under ultrasound guidance we visualized a right cephalic vein at the antecubital level, and we went a little bit below the antecubital and 5 mL of lidocaine 1% was injected there. We then took our Micropuncture needle and punctured the cephalic vein. A Micropuncture wire was inserted, Micropuncture sheath was inserted, and a short 6-Persian sheath was inserted. 2000 units of IV heparin were administered to this patient. We then placed a wire down all the way to the wrist and into the hand . We then went ahead and placed a 0.035 floppy guidewire down to the anastomosis and then placed a 7 x 8 Petroleum balloon inside the vein, and we then performed venoplasty of the entire fistula. Completion venogram now showed that the fistula was patent, there was a better thrill, and the fistula was of adequate size on venogram. At this point, no was needed. We went ahead and placed a [id number] stitch on the sheath, and the sheath was pulled. Area was then dried. Dermabond was placed. Patient tolerated the procedure with no complications. Patient was transferred to PACU in stable condition. There was a good bruit and thrill in her AV fistula. LEE RUTHERFORD DO [id number]
[2018-05-12 17:11] VITALS: BP 130/60; PULSE 72; TEMP 98.1
== END 2018-05-12 17:18 | disposition home or self-care (01) ==
LOC: JASU-SURG 12:29
PROVIDERS: ATTEND Surgery Vascular Surgery
PROC: 057D3DZ Dilation of Right Cephalic Vein with Intraluminal Device, Percutaneous Approach (ICD-10-PCS; principal; 2018-05-12 14:00)
DX: T82.858A Stenosis of other vascular prosthetic devices, implants and grafts, initial encounter (principal); I12.0 Hypertensive chronic kidney disease with stage 5 chronic kidney disease or end stage renal disease; E11.22 Type 2 diabetes mellitus with diabetic chronic kidney disease; N18.6 End stage renal disease; Z99.2 Dependence on renal dialysis; Z79.4 Long term (current) use of insulin
CPT/HCPCS: 36415; 76000-TC-FY; 82947; 84132; 94760; J1644

== ENCOUNTER 2018-12-22 15:05 | Emergency (ER) | payer OTHER ==
--- NOTE | 2018-12-22 15:18 | PDOC ---
Rapid Medical Evaluation Time Seen by Provider: 12/22/18 15:13 Medical Evaluation: Allergies Allergy/AdvReac Type Severity Reaction Status Date / Time No Known Drug Allergies Allergy Verified 12/22/18 15:12 I have performed a brief in-person evaluation of this patient. The patient presents with a chief complaint of: sent by Dr. Almanzar for eval for R foot pain; hx of ESRD (//; last dialysis yesterday), DM, s/p amputation R foot (all toes) Pertinent physical exam findings: covered wound along plantar/lateral aspect of R foot I have ordered the following: Xray The patient will proceed to the ED for further evaluation. 12/22/18 15:14
[2018-12-22 15:19] VITALS: BMI 27.9
[2018-12-22] MEDS ORDERED: ACETAMINOPHEN 325 MG TABLET (FP) PO ONE (15:19)
[2018-12-22] MEDS ORDERED: ACETAMINOPHEN 325 MG TABLET (FP) ONE (16:12)
--- NOTE | 2018-12-22 16:30 | PDOC ---
History of Present Illness - General Chief Complaint: Wound Stated Complaint: RT FOOT PAIN Time Seen by Provider: 12/22/18 15:13 - History of Present Illness Initial Comments: The pt is a 57M w/ a history of ESRD on HD (TTS), Hypertension, DM, s/p R TMA who presents for evaluation of 1 day of foot pain. The pt denies any trauma, has been going to wound care weekly for a R foot wound (last Tuesday), completed a full session HD yesterday, denies any erythema or swelling to the region, or any other systemic complaints. He did not try taking anything for pain before arrival. The pt had the top layer removed by the PA today and states that it feels better afterwards. Denies fevers/chills, chest pain, difficulty walking (other than the pain today) , extremity redness or swelling, or changes in strength/sensation. 12/22/18 16:31 Past History - Past Medical History Allergies/Adverse Reactions: Allergies Allergy/AdvReac Type Severity Reaction Status Date / Time No Known Drug Allergies Allergy Verified 12/22/18 15:12 Home Medications: Ambulatory Orders Minoxidil [Loniten -] 10 mg PO BID 07/21/16 Torsemide 100 mg PO DAILY 07/21/16 Calcium Acetate [Phoslo -] 667 mg PO TIDCM 08/09/16 Insulin (Levemir) [Levemir Flexpen -] 6 units SQ HS PRN 08/09/16 Clopidogrel Bisulfate [Plavix] 75 mg PO DAILY 03/21/18 Becaplermin [Regranex] 15 gm TP DAILY #1 tube 06/13/18 Nifedipine ER [Procardia XL -] 30 mg PO HS 12/21/18 Cephalexin Monohydrate [Keflex -] 500 mg PO BID #14 capsule 12/22/18 Sulfamethoxazole/Trimethoprim [Bactrim Ds -] 1 tab PO BID #14 tablet 12/22/18 Anemia: No Asthma: No Cancer: No Cardiac Disorders: No CVA: No COPD: No CHF: No Dementia: No Diabetes: Yes Dialysis: Yes (-TUE) GI Disorders: No Disorders: No HTN: Yes Hypercholesterolemia: No Liver Disease: No Seizures: No Thyroid Disease: No - Surgical History Abdominal Surgery: No Appendectomy: No Cardiac Surgery: No Cholecystectomy: No Lung Surgery: No Neurologic Surgery: No Orthopedic Surgery: Yes (RT FOOT SHARONA AMPUTATION x6, broken fingers) - Immunization History Td Vaccination: No Immunization Up to Date: No - Psycho Social/Smoking Cessation Hx Smoking Status: No Smoking History: Never smoked Have you smoked in the past 12 months: No Number of Cigarettes Smoked Daily: 0 Cigars Per Day: 0 Information on smoking cessation initiated: No Hx Alcohol Use: No Drug/Substance Use Hx: No Substance Use Type: None Hx Substance Use Treatment: No Review of Systems - Review of Systems Able to Perform ROS?: Yes Comments:: GENERAL/CONSTITUTIONAL: No fever or chills. No weakness HEAD, EYES, EARS, NOSE AND THROAT: No change in vision. No change in hearing. No sore throat CARDIOVASCULAR: No chest pain or shortness of breath RESPIRATORY: Denies cough, hemoptysis GASTROINTESTINAL: No nausea, vomiting, diarrhea or constipation GENITOURINARY: No dysuria, frequency, or change in urination MUSCULOSKELETAL: +R foot pain s/p TMA w/ small wound SKIN: Denies erythema NEUROLOGIC: No headache, vertigo, loss of consciousness, or change in strength/ sensation ENDOCRINE: No increased thirst. No abnormal weight change HEMATOLOGIC/LYMPHATIC: No anemia, easy bleeding, or history of blood clots ALLERGIC/IMMUNOLOGIC: No hives or skin allergy 12/22/18 16:29 Is the patient limited Italian proficient: No *Physical Exam - Vital Signs Last Vital Signs Temp Pulse Resp BP Pulse Ox 97.5 F L 71 18 149/46 L 97 12/22/18 15:14 12/22/18 15:14 12/22/18 15:14 12/22/18 15:14 12/22/18 15:14 - Physical Exam Comments: GENERAL: Awake, alert, and oriented to person/place/time, in no acute distress HEAD: No signs of trauma, normocephalic, atraumatic EYES: PERRLA, EOMI, sclera anicteric, conjunctiva clear ENT: Hearing grossly normal, nares patent, oropharynx clear without exudates. Moist mucosa LUNGS: No distress, speaks in full sentences, clear to auscultation bilaterally HEART: Regular rate and rhythm, normal S1 and S2, no murmurs appreciated, peripheral pulses normal and equal bilaterally ABDOMEN: Soft, nontender, normoactive bowel sounds. No guarding, no rebound EXTREMITIES: NEUROLOGICAL: Cranial nerves II through XII grossly intact. Normal speech, no focal sensorimotor deficits SKIN: 12/22/18 16:30 ED Treatment Course - LABORATORY CBC & Chemistry Diagram: 12/22/18 18:30 - RADIOLOGY Radiograph Interpretation: Right foot 3 views Impression: No gross radiographic evidence of osteomyelitis is identified. Additional evaluation utilizing MRI may be performed, nonemergent versus emergent as clinically indicated. Postsurgical changes are noted. 12/22/18 18:52 - Medications Given in the ED: ED Medications Discontinued Medications Generic Name Dose Route Start Last Admin Trade Name Freq PRN Reason Stop Dose Admin Acetaminophen 975 mg 12/22/18 15:19 12/22/18 16:21 Tylenol - PO 12/22/18 15:20 975 mg ONCE ONE Administration Medical Decision Making - Medical Decision Making The pt is a 57M w/ a history of ESRD on HD (TTS), Hypertension, DM, s/p R TMA who presents for evaluation of 1 day of right foot pain. ED Course R foot XR w/o evidence of osteo/SQ air Labs sent Will give Keflex and Bactrim -Rx sent for same Pt to f/u with wound care Tuesday12/22/18 18:53 ESR/CRP not elevated compared to old labs Cr and BUN near baseline K 5.6 Plan for D/C w/ PCP f/u Discharge instructions and return precautions given Patient in agreement and verbalized understanding Dispo: Home 12/22/18 20:20 Discharge - Discharge Information Problems reviewed: Yes Clinical Impression/Diagnosis: Wound of right foot Condition: Stable - Admission No - Additional Discharge Information Prescriptions: Cephalexin Monohydrate [Keflex -] 500 mg PO BID #14 capsule Sulfamethoxazole/Trimethoprim [Bactrim Ds -] 1 tab PO BID #14 tablet - Follow up/Referral Referrals: Mat Garrett MD [Primary Care Provider] - - Patient Discharge Instructions Patient Printed Discharge Instructions: DI for Wound Infection Additional Instructions: You were seen in the Emergency Department for evaluation of a right foot wound with pain. Your x-ray was negative for evidence of bone infection. A prescription for Keflex was sent to your pharmacy, take as directed. Review the handout provided at discharge. Maintain your follow up with wound care. Return to the Emergency Department if you develop fevers, chest pain, trouble breathing, worsening pain, change in sensation, worsening symptoms, or any new/ concerning symptoms. - Post Discharge Activity
[2018-12-22 17:10] VITALS: BP 140/65; PULSE 79; TEMP 98
[2018-12-22] MEDS ORDERED: CEPHALEXIN MONOHYDRATE 500 MG CAPSULE (UD) PO ONE (18:21)
[2018-12-22] MEDS ORDERED: SULFAMETHOXAZOLE/TRIMETHOPRIM 800MG/160MG D.S. TABLET PO ONE (18:21)
[2018-12-22] MEDS ORDERED: SULFAMETHOXAZOLE/TRIMETHOPRIM 800MG/160MG D.S. TABLET ONE (18:35)
[2018-12-22] MEDS ORDERED: CEPHALEXIN MONOHYDRATE 500 MG CAPSULE (UD) ONE (19:03)
[2018-12-22 19:40] LABS: BLOOD UREA NITROGEN 100.1 mg/dL (7-18); CALCIUM 8.4 mg/dL (8.5-10.1); POTASSIUM 5.6 mmol/L (3.5-5.1)
[2018-12-22 19:43] LABS: CREATININE 13.3 mg/dL (0.55-1.3)
--- NOTE | 2018-12-22 22:42 | PDOC ---
Documentation entered by Jorge Read SCRIBE, acting as scribe for Anabel Yarbrough MD. Anabel Yarbrough MD: This documentation has been prepared by the Jacek esposito Daniel, SCRIBE, under my direction and personally reviewed by me in its entirety. I confirm that the documentation accurately reflects all work, treatment, procedures, and medical decision making performed by me. Attending Attestation - Resident Resident Name: Aristides Chang - ED Attending Attestation I have performed the following: I have examined & evaluated the patient, The case was reviewed & discussed with the resident, I agree w/resident's findings & plan, Exceptions are as noted - HPI HPI: 12/22/18 18:31 57yoM w/ HTN, DM, hx of R foot TMA presnets w/ acute onset of pain to R TMA x this morning, no associated redness/fever. + pus drainage by PA/resident in ED. pt w/ weekly podiatry f/u and has upcoming appt in 4d. Vital Signs - 24 hr 12/22/18 12/22/18 15:14 17:09 Temperature 97.5 F L 98.0 F Pulse Rate 71 Pulse Rate [ 79 Apical] Respiratory 18 16 Rate Blood Pressure 149/46 L Blood Pressure 140/65 [Left Arm] O2 Sat by Pulse 97 100 Oximetry (%) well appeirng R foot w/ well healed TMA small opening, no current expressible purulence after drainage by resident no erythema no edema A&O x 3 57yoM w/ DM foot infection, + close oupainet f/u. - xray - labs w/ inflammatory markers - abx - if all unremarkalbe, can DC for podiatry f/u, otherwise admit. - Physicial Exam PE: 12/22/18 18:34 see HPI - Medical Decision Making 12/22/18 18:34 See HPI
== END 2018-12-22 20:33 | disposition home or self-care (01) ==
LOC: JER 15:05
DX: E11.621 Type 2 diabetes mellitus with foot ulcer (principal); S91.301A Unspecified open wound, right foot, initial encounter; Z98.890 Other specified postprocedural states; Z89.421 Acquired absence of other right toe(s); L97.511 Non-pressure chronic ulcer of other part of right foot limited to breakdown of skin; I12.0 Hypertensive chronic kidney disease with stage 5 chronic kidney disease or end stage renal disease; E11.22 Type 2 diabetes mellitus with diabetic chronic kidney disease; N18.6 End stage renal disease; N17.8 Other acute kidney failure; Z99.2 Dependence on renal dialysis; Z79.4 Long term (current) use of insulin; Z79.02 Long term (current) use of antithrombotics/antiplatelets
CPT/HCPCS: 36415; 73630-TC-RT-FY; 80048; 85651; 86140; 99282-25

== ENCOUNTER 2019-02-10 06:49 | Emergency (ER) | payer OTHER ==
[2019-02-10 07:20] VITALS: BMI 28.7
--- NOTE | 2019-02-10 07:51 | PDOC ---
History of Present Illness - General Chief Complaint: Dialysis Shunt Problem Stated Complaint: RT ARM BROKEN Time Seen by Provider: 02/10/19 07:46 Past History - Past Medical History Allergies/Adverse Reactions: Allergies Allergy/AdvReac Type Severity Reaction Status Date / Time No Known Drug Allergies Allergy Verified 02/10/19 07:14 Home Medications: Ambulatory Orders Minoxidil [Loniten -] 10 mg PO BID 07/21/16 Torsemide 100 mg PO DAILY 07/21/16 Calcium Acetate [Phoslo -] 667 mg PO TIDCM 08/09/16 Insulin (Levemir) [Levemir Flexpen -] 6 units SQ HS PRN 08/09/16 Clopidogrel Bisulfate [Plavix] 75 mg PO DAILY 03/21/18 Nifedipine ER [Procardia XL -] 30 mg PO HS 12/21/18 Anemia: No Asthma: No Cancer: No Cardiac Disorders: No CVA: No COPD: No CHF: No Dementia: No Diabetes: Yes Dialysis: Yes () GI Disorders: No Disorders: No HTN: Yes Hypercholesterolemia: No Liver Disease: No Seizures: No Thyroid Disease: No - Surgical History Abdominal Surgery: No Appendectomy: No Cardiac Surgery: No Cholecystectomy: No Lung Surgery: No Neurologic Surgery: No Orthopedic Surgery: Yes (RT FOOT SHARONA AMPUTATION x6, broken fingers) - Immunization History Td Vaccination: No Immunization Up to Date: No - Psycho Social/Smoking Cessation Hx Smoking Status: No Smoking History: Never smoked Have you smoked in the past 12 months: No Number of Cigarettes Smoked Daily: 0 Cigars Per Day: 0 Hx Alcohol Use: No Drug/Substance Use Hx: No Substance Use Type: None Hx Substance Use Treatment: No *Physical Exam - Vital Signs Last Vital Signs Temp Pulse Resp BP Pulse Ox 97.9 F 55 L 16 124/85 99 02/10/19 07:18 02/10/19 07:18 02/10/19 07:18 02/10/19 07:18 02/10/19 07:18 ED Treatment Course - LABORATORY CBC & Chemistry Diagram: 02/10/19 08:30 02/10/19 08:30 Medical Decision Making - Medical Decision Making 02/10/19 08:03 HPI: 58yo M hx ESRD on HD TTS (last HD ), HTN, DM, s/p R TMA, presents from HD with dialysis shunt access not working this AM at HD. HD not done. Denies pain, bleeding, redness, warmth, pus, numbness/tingling, weakness. Placed approx 8mo ago, denies any problems or complications. Denies fever, chills, fatigue, headache, dizziness, numbness/tingling, weakness, vision changes, shortness of breath, cough, chest pain, palpitations, leg swelling, abdominal pain, blood in stool, diarrhea, constipation, nausea, vomiting, dysuria, hematuria, confusion. PCP - Erick Garrett Vascular - Lee Araiza Concrete Saw Operator - Sraah Espinosa ROS: Constitutional: Negative for chills, fever, fatigue, diaphoresis. HENT: Negative for sore throat, rhinorrhea, congestion. Eyes: Negative for visual disturbance. Respiratory: Negative for shortness of breath, cough, and wheezing. Cardiovascular: Negative for chest pain, palpitations, and leg swelling. Gastrointestinal: Negative for abdominal pain, blood in stool, constipation, diarrhea, nausea, and vomiting. Genitourinary: Negative for dysuria, flank pain, and hematuria. Musculoskeletal: Positive for malfunctioning R forearm dialysis shunt. Negative for myalgias, back pain, and neck pain. Skin: Negative for rash. Neurological: Negative for light-headedness, dizziness, vertigo, syncope, weakness, numbness and headaches. Psychiatric/Behavioral: Negative for behavioral problems and confusion. PE: Gen: Alert, NAD, comfortable-appearing. HEENT: PERRL, EOMI, MMM, NCAT. No conjunctival pallor. Sclera are non-icteric. Oropharynx is clear. CV: Regular rate and rhythm. No murmurs, rubs, or gallops. PULM: No resp distress. CTAB, no wheezes, rales, or rhonchi. ABD: soft, NT/ND, no rebound tenderness or guarding, no CVA tenderness. BACK: No TTP of c/t/l-spine. No step-offs or deformities. MSK: No bony deformities. 2+ pulses in all extremities. NEURO: AAOx3. PERRL. No gross CN deficits. Strength and sensation grossly intact throughout. EXTREMITIES: No cyanosis. No clubbing. No edema. No calf tenderness. RUE: forearm dialysis shunt with +thrill and bruit distally, no thrill or bruit proximally, no erythema or warmth or bleeding or drainage, no TTP PSYCH: Normal mood and thought pattern. SKIN: Warm and dry. Normal capillary refill. No rashes. No jaundice. MDM: 58yo M hx ESRD on HD TTS (last HD ), HTN, DM, s/p R TMA, presents from HD with dialysis shunt access not working this AM at HD. Hemodynamically stable , afebrile. Ddx: burr bench operator error vs clotted shunt. No e/o infection or bleeding. -CBC,CMP,Coags,T&S -EKG -RUE duplex arterial -NPO -Consult Dr Lee Araiza: consult placed and office paged -Dispo: likely adm 02/10/19 08:[address] Lee Araiza - states both him and other vascular surgeon Dr Kiran are on vacation. Recommends US to confirm clotted access; if clotted , will need transfer to [place] since no vascular surgeon available here. 02/10/19 09:28 EKG reviewed: 48bpm, 2nd degree AV block Mobitz type I, QTc 434ms, normal axis, no TWIs, no ST elevations or depressions. Compared to 03/02/18, 2nd degree AV block Mobitz type I has replaced sinus rhythm with 1st degree AV block 02/10/19 09:57 Labs reviewed. Tx K 5.8 and EKG changes with insulin 6 units, 1amp D50, and Ca gluconate 1g. 02/10/19 11:46 US: patent R forearm dialysis AV fistula/graft but with significant flow limiting stenosis distally. Recommend IR consult for fistulogram and percutaneous intervention. [facility] transfer center called - pending call back. 02/10/19 12:28 Signed out to attending Dr Land (co-accepting for Dr Nguyễn) at [facility]. Transfer accepted. [facility] arranging transport. Discharge - Discharge Information Problems reviewed: Yes Clinical Impression/Diagnosis: Clotted renal dialysis AV graft Condition: Stable Disposition: TRANSFER ACUTE CARE/OTHER HOSP - Admission No - Follow up/Referral Referrals: Mat Garrett MD [Primary Care Provider] - - Patient Discharge Instructions - Post Discharge Activity
[2019-02-10 09:16] LABS: BASO % 1.4 % (0-2.0); EOS % 5.2 % (0-4.5); HEMATOCRIT 33.1 % (35.4-49); HEMOGLOBIN 10.7 GM/dL (11.7-16.9); LYMPH % 18.4 % (8-40); MCH 29.4 pg (25.7-33.7); MCHC 32.3 g/dl (32.0-35.9); MEAN CELL VOLUME 91.1 fl (80-96); MEAN PLT VOLUME 8.8 fl (7.5-11.1); MONO % 12.7 % (3.8-10.2); NEUT % 62.3 % (42.8-82.8); PLATELET COUNT 134 K/MM3 (134-434); RBC 3.64 M/mm3 (4.00-5.60); RDW 16.7 % (11.9-15.9); WHITE BLOOD COUNT 5.9 K/mm3 (4.0-10.0)
[2019-02-10 09:33] LABS: ALBUMIN 3.5 g/dl (3.4-5.0); BILIRUBIN,TOTAL 0.5 mg/dL (0.2-1); CALCIUM 8.1 mg/dL (8.5-10.1); POTASSIUM 5.8 mmol/L (3.5-5.1); TOT PROT 7.7 g/dl (6.4-8.2)
[2019-02-10 09:36] LABS: BLOOD UREA NITROGEN 120.1 mg/dL (7-18); CREATININE 16.1 mg/dL (0.55-1.3)
[2019-02-10] MEDS ORDERED: CALCIUM GLUCONATE 10% - 1,000 MG/10 ML VIAL IVPB ONE (09:54)
[2019-02-10] MEDS ORDERED: INSULIN REGULAR HUMAN 100 UNITS/ML *VIAL IVPUSH ONE (09:56)
[2019-02-10] MEDS ORDERED: DEXTROSE 50%-WATER - 25 GM/50 ML VIAL IVPUSH ONE (09:56)
[2019-02-10 10:47] LABS: INR 1.17 (0.83-1.09); PROTHROMBIN TIME (PATIENT) 13.8 SEC (9.7-13.0)
[2019-02-10] MEDS ORDERED: DEXTROSE 50%-WATER - 25 GM/50 ML VIAL ONE (10:59)
[2019-02-10] MEDS ORDERED: CALCIUM CHLORIDE 1 GM/10 ML *DISP.SYRIN ONE (11:00)
[2019-02-10] MEDS ORDERED: INSULIN (NOVOLOG) ASPART 100 UNITS/ML 10ML VIAL ONE (11:00)
--- NOTE | 2019-02-10 12:36 | PDOC ---
Documentation entered by Rusty Song SCRIBE, acting as scribe for Yady Kaufman MD. Yady Kaufman MD: This documentation has been prepared by the Nohemi esposito Xhesika, SCRIBE, under my direction and personally reviewed by me in its entirety. I confirm that the documentation accurately reflects all work, treatment, procedures, and medical decision making performed by me. Attending Attestation - Resident Resident Name: Kayli Knox - HPI HPI: 02/10/19 11:51 The patient is a 58 year old male with a significant PMH of ESRD (on HD tuesday , , tuesday), HTN, DM, s/p R TMA who presents to the emergency department due to dialysis shunt not functioning. Pt states he went to HD today , however, pt did not receive dialysis because his fistula was not working and was advised to come to the ED. The patient denies chest pain, shortness of breath, headache and dizziness. Denies fever, chills, cough, nausea, vomiting, diarrhea. Denies dysuria, frequency, urgency and hematuria. Allergies: NKDA PCP: Dr. Erick Garrett Vascular: Dr. Lee Araiza Financial Management Consultant: Dr. Sarah Espinosa - Physicial Exam PE: 02/10/19 11:52 GENERAL: The patient is awake, alert, and fully oriented, Nontoxic - in no acute distress. HEAD: Normocephalic, atraumatic. EYES: extraocular movements intact, sclera anicteric, conjunctiva clear. ENT: Normal voice, moist mucous membranes. NECK: Normal range of motion, supple without lymphadenopathy, JVD, or masses. LUNGS: Breath sounds equal, clear to auscultation bilaterally. No wheezes, no crackles, no rales. HEART: Regular rate and rhythm, normal S1 and S2 without murmur, rub or gallop. ABDOMEN: Soft, nontender, normoactive bowel sounds. No guarding, no rebound. No masses. EXTREMITIES: + R forearm active dialysis shunt - currently not working. + L forearm fistula not functional. Normal range of motion, no edema. No clubbing or cyanosis. No cords, erythema, or tenderness. NEUROLOGICAL: Fully Oriented, Alert, Normal Mood/Affect, Motor Strength 5/5. No facial asymmetry, Normal speech SKIN: Warm, Dry, normal turgor, no rashes or lesions noted. - Medical Decision Making 02/10/19 12:33 58 y/o male esrd on dialysis presented for scheduled dialysis today but fistula was not working, so referred to ED for evaluation. US of left arm fistula noted, vascular surgery not available will transfer PT to [facility] for evaluation by Vascular and then dialysis. Pt in stable condition a time of this note and not in any acute distress.
[2019-02-10 13:24] VITALS: BP 153/65; PULSE 57
[2019-02-10 13:28] VITALS: TEMP 97.9
--- NOTE | 2019-02-10 13:30 | EKG ---
Test Reason : Blood Pressure : / mmHG Vent. Rate : 048 BPM Atrial Rate : 064 BPM P-R Int : 000 ms QRS Dur : 080 ms QT Int : 486 ms P-R-T Axes : 059 000 116 degrees QTc Int : 434 ms MARKED SINUS BRADYCARDIA WITH MOBITZ I (WENCKEBACH) BLOCK ANTERIOR INFARCT , AGE UNDETERMINED ABNORMAL ECG WHEN COMPARED WITH ECG OF 02-MAR-2018 11:57, T WAVE INVERSION NO LONGER EVIDENT IN LATERAL LEADS Confirmed by MD MONICA, BRYAN ([id number]) on 02/10/2019 1:30:15 PM Referred By: Confirmed By:BRYAN ANDERSON MD
== END 2019-02-10 13:10 | disposition short-term general hospital (02) ==
LOC: JER 06:49
PROC: 3E033VG Introduction of Insulin into Peripheral Vein, Percutaneous Approach (ICD-10-PCS; principal; 2019-02-10)
PROC: 3E0337Z Introduction of Electrolytic and Water Balance Substance into Peripheral Vein, Percutaneous Approach (ICD-10-PCS; 2019-02-10)
DX: T82.590A Other mechanical complication of surgically created arteriovenous fistula, initial encounter (principal); I12.0 Hypertensive chronic kidney disease with stage 5 chronic kidney disease or end stage renal disease; E11.22 Type 2 diabetes mellitus with diabetic chronic kidney disease; N18.6 End stage renal disease; N17.8 Other acute kidney failure; Z99.2 Dependence on renal dialysis; Z79.4 Long term (current) use of insulin; Z79.02 Long term (current) use of antithrombotics/antiplatelets; Z89.431 Acquired absence of right foot
CPT/HCPCS: 36415; 80053; 85025; 85610; 85730; 86850; 86900; 86901; 93005; 93010; 93930; 96374; 96375; 99285-25

== ENCOUNTER 2019-02-16 06:08 | Day surgery (SDC) | payer OTHER ==
[2019-02-15 08:29] VITALS: BMI 28.7
[2019-02-16] MEDS ORDERED: HEPARIN NA (PORCINE) 5,000 UNITS/ML 1ML VIAL ONE ×2 (07:14→08:08)
[2019-02-16] MEDS ORDERED: LIDOCAINE HCL 1%, 10 MG/ML (20ML VIAL) ONE (07:14)
[2019-02-16] MEDS ORDERED: ceFAZolin SODIUM 1 GM VIAL ONE (07:54)
[2019-02-16] MEDS ORDERED: LIDOCAINE HCL/PF 2% SDV 5ML VIAL ONE (07:54)
[2019-02-16] MEDS ORDERED: PROPOFOL 20 ML ONE (07:55)
[2019-02-16] MEDS ORDERED: MIDAZOLAM HCL 2 MG/2 ML SINGLE DOSE VIAL ONE (07:55)
[2019-02-16] MEDS ORDERED: ceFAZolin 2 GRAM PREMIX BAG IVPB ONE (08:06)
[2019-02-16] MEDS ORDERED: LIDOCAINE HCL 1%, 10 MG/ML (20ML VIAL) NR ONE (08:14)
[2019-02-16] MEDS ORDERED: HEPARIN NA (PORCINE) 5,000 UNITS/ML 1ML VIAL SQ ONE (08:34)
[2019-02-16] MEDS ORDERED: ONDANSETRON 4 MG/2 ML VIAL IVPUSH PRN (08:49)
--- NOTE | 2019-02-16 08:52 | OP ---
Operative Note - Note: Operative Date: 02/16/19 Pre-Operative Diagnosis: stenosis left avf Operation: venogram, venoplasty left avf Post-Operative Diagnosis: Same as Pre-op Surgeon: Lee Araiza Anesthesia: Fractional Estimated Blood Loss (mls): 20 Operative Report Dictated: Yes
--- NOTE | 2019-02-16 08:53 | HP ---
Admitting History and Physical - Admission Chief Complaint: stenosis left avf Limitations to Obtaining History: No Limitations - Past Medical History Cardiovascular: Yes: HTN Renal/: Yes: Renal Failure, Hemodialysis (on maintenance HD 2/2 hypertensive nephrosclerosis since 2013; on transplant list @ [facility]) Heme/Onc: Yes: Anemia Infectious Disease: Yes: Other Musculoskeletal: Yes: Other (remote hx of L foot fracture/sports trauma ) Endocrine: Yes: Diabetes Mellitus - Past Surgical History Past Surgical History: Yes: Amputation (TMA on 08/10, Revision on 08/21) - Smoking History Smoking history: Never smoked Have you smoked in the past 12 months: No Aproximately how many cigarettes per day: 0 - Alcohol/Substance Use Hx Alcohol Use: No History of Substance Use: reports: None - Social History ADL: Independent Occupation: not working History of Recent Travel: Yes ([facility]) Home Medications - Allergies Allergies/Adverse Reactions: Allergies Allergy/AdvReac Type Severity Reaction Status Date / Time No Known Drug Allergies Allergy Verified 02/16/19 06:41 - Home Medications Home Medications: Ambulatory Orders Minoxidil [Loniten -] 10 mg PO BID 07/21/16 Torsemide 100 mg PO DAILY 07/21/16 Calcium Acetate [Phoslo -] 667 mg PO TIDCM 08/09/16 Insulin (Levemir) [Levemir Flexpen -] 6 units SQ HS PRN 08/09/16 Clopidogrel Bisulfate [Plavix] 75 mg PO DAILY 03/21/18 Nifedipine ER [Procardia XL -] 30 mg PO HS 12/21/18 Review of Systems - Review of Systems Constitutional: reports: No Symptoms Eyes: reports: No Symptoms HENT: reports: No Symptoms Neck: reports: No Symptoms Cardiovascular: reports: No Symptoms Respiratory: reports: No Symptoms Gastrointestinal: reports: No Symptoms Genitourinary: reports: No Symptoms Breasts: reports: No Symptoms Reported Musculoskeletal: reports: No Symptoms Integumentary: reports: No Symptoms Neurological: reports: No Symptoms Endocrine: reports: No Symptoms Hematology/Lymphatic: reports: No Symptoms Psychiatric: reports: No Symptoms Physical Examination Vital Signs: Vital Signs Temperature 97.7 F 02/16/19 06:46 Pulse Rate 54 L 02/16/19 06:46 Respiratory Rate 16 02/16/19 06:46 Blood Pressure 118/55 L 02/16/19 06:46 O2 Sat by Pulse Oximetry (%) 94 L 02/16/19 06:46 Constitutional: Yes: Well Nourished, No Distress, Calm Eyes: Yes: WNL, Conjunctiva Clear, EOM Intact HENT: Yes: WNL, Atraumatic, Normocephalic Neck: Yes: WNL, Supple, Trachea Midline Cardiovascular: Yes: WNL, Regular Rate and Rhythm Respiratory: Yes: WNL, Regular, CTA Bilaterally Gastrointestinal: Yes: WNL, Normal Bowel Sounds Musculoskeletal: Yes: WNL Extremities: Yes: WNL Edema: No Peripheral Pulses WNL: Yes Integumentary: Yes: WNL Neurological: Yes: WNL, Alert, Oriented ...Motor Strength: WNL Psychiatric: Yes: WNL Labs: CBC, BMP 02/16/19 06:18 Problem List - Problems (1) ESRD (end stage renal disease) on dialysis Assessment/Plan: for venogram , venoplasty left avf today Code(s): N18.6 - END STAGE RENAL DISEASE; Z99.2 - DEPENDENCE ON RENAL DIALYSIS
[2019-02-16] MEDS ORDERED: SODIUM CHLORIDE 1,000 ML IV SCH (09:00)
[2019-02-16 10:03] VITALS: TEMP 97.6
[2019-02-16 13:00] VITALS: BP 142/56; PULSE 54
--- NOTE | 2019-02-22 11:35 | OP ---
DATE OF OPERATION: 02/16/2019 PREOPERATIVE DIAGNOSIS: Stenosis, left arteriovenous fistula. POSTOPERATIVE DIAGNOSIS: Stenosis, left arteriovenous fistula. PROCEDURE: Venogram, venoplasty left arteriovenous fistula. SURGEON: Lee Rutherford DO ANESTHESIA: Fractional. BLOOD LOSS: 20 mL. HISTORY: Patient is a 58-year-old male that has difficult cannulation of his right AV fistula last week in dialysis. It was decided that he would need a venogram. Patient came in through ambulatory surgery. Patient was consented for the procedure understanding all risks, benefits, alternatives then taken to the operating room. DESCRIPTION OF PROCEDURE: Once in operating room, was laid on the operating table in supine manner, and the area of the right forearm was prepped and draped in a sterile surgical manner. Under ultrasound guidance, we did visualize the cephalic vein below the antecubital space, and 10 mL of lidocaine 1% was injected there. We then took our micropuncture needle and punctured the cephalic vein. Micropuncture wire was inserted. Micropuncture sheath was inserted, and a short 6-Frisian sheath was inserted, 3000 units of IV heparin was administered to the patient. We then placed our 0.035 floppy guidewire down to the anastomosis and across it into the cephalic vein. We then went ahead and used an 8 x 6 [place] balloon and performed venoplasty of the anastomosis and the entire vein going up to the antecubital fossa. Completion venogram now showed that the fistula was patent and that the vein was dilated. There was no recoil. At this point, a 4-0 Biosyn stitch was taken, and a [id number] stitch was placed around the sheath, and the sheath was pulled. The area was wet and dried, and Dermabond was placed. The patient tolerated the procedure with no complications. Patient transferred to PACU in stable condition. LEE RUTHERFORD DO COUNTER ROLLER/[id number]
== END 2019-02-16 13:00 | disposition home or self-care (01) ==
LOC: JASU-SURG 06:08
PROVIDERS: ATTEND Surgery Vascular Surgery
PROC: 05WY3JZ Revision of Synthetic Substitute in Upper Vein, Percutaneous Approach (ICD-10-PCS; principal; 2019-02-16 08:00)
DX: T82.858A Stenosis of other vascular prosthetic devices, implants and grafts, initial encounter (principal); I12.0 Hypertensive chronic kidney disease with stage 5 chronic kidney disease or end stage renal disease; N18.6 End stage renal disease; E11.22 Type 2 diabetes mellitus with diabetic chronic kidney disease; Z99.2 Dependence on renal dialysis; Z79.4 Long term (current) use of insulin
CPT/HCPCS: 36415; 76000-TC-FY; 82962; 84132; 94760; J1644

== ENCOUNTER 2019-03-08 08:52 | Inpatient (IN) | payer OTHER ==
[2019-03-08] MEDS ORDERED: LIDOCAINE HCL 1%, 10 MG/ML (20ML VIAL) ONE (10:50)
[2019-03-08] MEDS ORDERED: HEPARIN NA (PORCINE) 5,000 UNITS/ML 1ML VIAL ONE (10:50)
--- NOTE | 2019-03-08 11:34 | HP ---
Admitting History and Physical - Admission Chief Complaint: right avf with low flow in HD Limitations to Obtaining History: No Limitations - Past Medical History Cardiovascular: Yes: HTN Renal/: Yes: Renal Failure, Hemodialysis (on maintenance HD 2/2 hypertensive nephrosclerosis since 2013; on transplant list @ [place]) Heme/Onc: Yes: Anemia Infectious Disease: Yes: Other Musculoskeletal: Yes: Other (remote hx of L foot fracture/sports trauma ) Endocrine: Yes: Diabetes Mellitus - Past Surgical History Past Surgical History: Yes: Amputation (TMA on 08/10, Revision on 08/21) - Smoking History Smoking history: Never smoked Have you smoked in the past 12 months: No Aproximately how many cigarettes per day: 0 - Alcohol/Substance Use Hx Alcohol Use: No History of Substance Use: reports: None - Social History ADL: Independent Occupation: not working History of Recent Travel: Yes ([facility]) Home Medications - Allergies Allergies/Adverse Reactions: Allergies Allergy/AdvReac Type Severity Reaction Status Date / Time No Known Drug Allergies Allergy Verified 02/16/19 06:41 - Home Medications Home Medications: Ambulatory Orders Minoxidil [Loniten -] 10 mg PO BID 07/21/16 Torsemide 100 mg PO DAILY 07/21/16 Calcium Acetate [Phoslo -] 667 mg PO TIDCM 08/09/16 Insulin (Levemir) [Levemir Flexpen -] 6 units SQ HS PRN 08/09/16 Clopidogrel Bisulfate [Plavix] 75 mg PO DAILY 03/21/18 Nifedipine ER [Procardia XL -] 30 mg PO HS 12/21/18 Review of Systems - Review of Systems Constitutional: reports: No Symptoms Eyes: reports: No Symptoms HENT: reports: No Symptoms Neck: reports: No Symptoms Cardiovascular: reports: No Symptoms Respiratory: reports: No Symptoms Gastrointestinal: reports: No Symptoms Genitourinary: reports: No Symptoms Breasts: reports: No Symptoms Reported Musculoskeletal: reports: No Symptoms Integumentary: reports: No Symptoms Neurological: reports: No Symptoms Endocrine: reports: No Symptoms Hematology/Lymphatic: reports: No Symptoms Psychiatric: reports: No Symptoms Physical Examination Vital Signs: Vital Signs Temperature 97.7 F 03/08/19 10:06 Pulse Rate 67 03/08/19 10:06 Respiratory Rate 18 03/08/19 10:06 Blood Pressure 137/76 03/08/19 10:06 O2 Sat by Pulse Oximetry (%) 98 03/08/19 10:07 Constitutional: Yes: Well Nourished, No Distress, Calm Eyes: Yes: WNL, Conjunctiva Clear, EOM Intact HENT: Yes: WNL, Atraumatic, Normocephalic Neck: Yes: WNL, Supple, Trachea Midline Cardiovascular: Yes: WNL, Regular Rate and Rhythm Respiratory: Yes: WNL, Regular, CTA Bilaterally Gastrointestinal: Yes: WNL, Normal Bowel Sounds Musculoskeletal: Yes: WNL Extremities: Yes: WNL Edema: No Peripheral Pulses WNL: Yes Integumentary: Yes: WNL Neurological: Yes: WNL, Alert, Oriented ...Motor Strength: WNL Psychiatric: Yes: WNL Labs: CBC, BMP 03/08/19 09:01 Problem List - Problems (1) Malfunction of arteriovenous shunt Assessment/Plan: for venogram, venoplasty today Code(s): T82.591A - [facility] COMPL OF SURGICALLY CREATED ARTERIOVENOUS SHUNT, INIT
[2019-03-08] MEDS ORDERED: MIDAZOLAM HCL 2 MG/2 ML SINGLE DOSE VIAL ONE ×2 (11:41→11:48)
[2019-03-08] MEDS ORDERED: ceFAZolin SODIUM 1 GM VIAL IVPB ONE (12:05)
[2019-03-08] MEDS ORDERED: LIDOCAINE HCL 1%, 10 MG/ML (20ML VIAL) NR ONE ×2 (12:11)
--- NOTE | 2019-03-08 12:59 | OP ---
Operative Note - Note: Operative Date: 03/08/19 Pre-Operative Diagnosis: low flow right avf Operation: venogram, venoplasty right avf Findings: stenosis outflow vein Post-Operative Diagnosis: Same as Pre-op Surgeon: Lee Araiza Anesthesia: Fractional Estimated Blood Loss (mls): 20 Operative Report Dictated: Yes
--- NOTE | 2019-03-08 15:09 | EKG ---
Test Reason : Blood Pressure : / mmHG Vent. Rate : 070 BPM Atrial Rate : 070 BPM P-R Int : 430 ms QRS Dur : 090 ms QT Int : 408 ms P-R-T Axes : 060 -12 091 degrees QTc Int : 440 ms SINUS RHYTHM WITH 1ST DEGREE A-V BLOCK SEPTAL INFARCT (CITED ON OR BEFORE 10-FEB-2019) ABNORMAL ECG WHEN COMPARED WITH ECG OF 10-FEB-2019 08:16, [place] INTERVAL HAS INCREASED QUESTIONABLE CHANGE IN INITIAL FORCES OF SEPTAL LEADS Confirmed by ZAK LO MD ([id number]) on 03/08/2019 3:09:26 PM Referred By: Lee Araiza Confirmed By:ZAK LO MD
--- NOTE | 2019-03-08 15:29 | CONSULT ---
Consult - text type - Consultation Consultation Note: Renal consult for ESRD on HD This is a 58 year old gentleman with history of ESRD on HD (TTS ) and hypertension who presented for elective angioplasty of AVF and noted to have K of 6.5. Last dialysis was Tuesday and was noted to have high access pressures. He offers no acute complaints. Denies any chest pain, abdominal pain , fever, chills, palpitations, N/V/D. Currently on dialysis. PMhx: as above Allergies: NKDA Family Hx: NC Social Hx: No T/A/D ROS: as per HPI, all other pertinent ros negative Home Medications Medication Instructions Recorded Minoxidil [Loniten -] 10 mg PO BID 07/21/16 Torsemide 100 mg PO DAILY 07/21/16 Calcium Acetate [Phoslo -] 667 mg PO TIDCM 08/09/16 Insulin (Levemir) [Levemir Flexpen 6 units SQ HS PRN 08/09/16 -] Clopidogrel Bisulfate [Plavix] 75 mg PO DAILY 03/21/18 Nifedipine ER [Procardia XL -] 30 mg PO HS 12/21/18 Vital Signs Temperature 97.8 F 03/08/19 14:27 Pulse Rate 60 03/08/19 15:10 Respiratory Rate 18 03/08/19 15:10 Blood Pressure 170/84 03/08/19 15:10 O2 Sat by Pulse Oximetry (%) 100 03/08/19 13:45 NAD awake and alert neck supple RRR CTA soft NT/ND no LE edema right arm AVF CBC, BMP 03/08/19 09:01 Current Medications Heparin Sodium (Porcine) (Heparin -) 500 unit IVPUSH Q1H [facility] Stop: 03/08/19 16:16 Sodium Chloride (Normal Saline -) 250 mls @ 3,000 mls/hr IV PRN PRN PRN Reason: Hypotension during Dialysis Stop: 03/09/19 13:14 Nifedipine (Procardia Xl -) 30 mg PO DAILY [facility] 58 year old gentleman with history of ESRD on HD (TTS) and hypertension who presented for elective angioplasty of AVF and noted to have K of 6.5. 1. Hyperkalemia likely due to poor access flow and clearance with prior dialysis 2. AVF stenosis s/p vascular intervention 3. ESRD on HD 4. Hypertension Tolerating dialysis well today. Renal diet, 1.2L fluid restriction continue nifedpine 30mg daily, Minoxidil 10mg QHS discharge planning as pre vascular surgery Cm Torres DO
[2019-03-08] MEDS ORDERED: SODIUM CHLORIDE 250 ML IV PRN (16:49)
[2019-03-08] MEDS: HEPARIN NA (PORCINE) 5,000 UNITS/ML 1ML VIAL IVPUSH SCH ×3 (17:00→21:15)
[2019-03-08 19:39] VITALS: BMI 28.5
[2019-03-08] MEDS ORDERED: PT OWN MED DRAWER 7, Y5N ONE (20:30)
[2019-03-08] MEDS ORDERED: MINOXIDIL 10 MG TABLET PO SCH (22:00)
[2019-03-09] MEDS ORDERED: NIFEdipine E.R. 30 MG TABLET PO SCH ×2 (10:00→22:00)
[2019-03-09] MEDS ORDERED: MINOXIDIL 10 MG TABLET PO SCH (11:30)
[2019-03-09] MEDS ORDERED: CALCIUM ACETATE 667 MG CAPSULE (FP) PO SCH (12:00)
--- NOTE | 2019-03-09 13:28 | PN ---
Progress Note (short form) - Note Progress Note: Renal follow up for ESRD on HD Seen and examined at the bedside offers no acute complaints tolerated dialysis well yesterday via AVF Vital Signs Temperature 98.3 F 03/09/19 10:00 Pulse Rate 70 03/09/19 10:00 Respiratory Rate 18 03/09/19 10:00 Blood Pressure 154/73 03/09/19 10:00 O2 Sat by Pulse Oximetry (%) 99 03/08/19 21:00 Intake & Output 03/06/19 03/07/19 03/08/19 03/09/19 23:59 23:59 23:59 23:59 Intake Total 600 0 Output Total 3020 Balance -2420 0 Weight 90.718 kg 90.083 kg NAD awake and alert no edema no thrill felt or bruit heard on AVF CBC, BMP 03/08/19 09:01 Current Medications Calcium Acetate (Phoslo -) 667 mg PO TIDCM [facility] Last Admin: 03/09/19 12:09 Dose: 667 mg Insulin Detemir (Levemir Vial) 7 units SQ HS MONIK Minoxidil (Loniten -) 10 mg PO BID [facility] Last Admin: 03/09/19 12:09 Dose: 10 mg Nifedipine (Procardia Xl -) 30 mg PO DAILY@2200 MONIK NAD awake and alert neck supple RRR CTA soft NT/ND no LE edema right arm AVF 58 year old gentleman with history of ESRD on HD (TTS) and hypertension who presented for elective angioplasty of AVF and noted to have K of 6.5. 1. Hyperkalemia likely due to poor access flow and clearance with prior dialysis 2. AVF stenosis s/p vascular intervention 3. ESRD on HD 4. Hypertension Contacted Dr. Araiza to re-evaluate AVF given no bruit on examination today restarted medications at home dose. If pt is to stay will arrange for dialysis tomorrow. Cm Torres DO
[2019-03-09 14:45] VITALS: BP 144/74; PULSE 65; TEMP 97.7
[2019-03-09] MEDS ORDERED: INSULIN (LEVEMIR) 100 UNITS/ML UNITS SQ SCH (22:00)
--- NOTE | 2019-03-28 19:03 | OP ---
DATE OF OPERATION: 03/08/2019 PREOPERATIVE DIAGNOSIS: Low flow right arteriovenous fistula. POSTOPERATIVE DIAGNOSIS: Low flow right arteriovenous fistula. PROCEDURE PERFORMED: Venogram, venoplasty of right arteriovenous fistula. FINDINGS: Stenosis of outflow vein. SURGEON: Lee Rutherford DO ANESTHESIA: Fractional. BLOOD LOSS: 20 mL. INDICATIONS: Patient is a 58-year-old male who comes from the dialysis unit because he is having low flow in his right AV fistula and he is having some difficult cannulation. It was decided that he would need a venogram. DESCRIPTION OF PROCEDURE: The patient came into Ambulatory Surgery. The patient was consented for the procedure, understanding all risks, benefits and alternatives, and was then brought to the operating room. Once in the operating room, the patient was laid on the operating table in the supine manner, and the area of the right arm was prepped and draped in a sterile surgical manner. We then went ahead and injected 10 mL of lidocaine 1% over the distal AV fistula, above the arterial anastomosis. We then went ahead and took our micropuncture needle and punctured the fistula. Micropuncture wire was inserted and micropuncture sheath was inserted. An additional short 6-Luxembourgish sheath was inserted. We then shot our venogram, showing that the fistula was patent but there was an outflow stenosis where the cephalic vein flowed into the basilic vein. At this point 5000 units of IV heparin was administered to the patient, and we went ahead and placed a 0.035 floppy guidewire across the stenosis. We then went ahead and used an 8 x 8 Durata balloon and performed venoplasty of the outflow vein, the basilic vein and the area of stenosis. Completion venogram now showed that there was good brisk flow in the AV fistula. We then held pressure on the proximal AV fistula and shot a venogram of the arterial anastomosis, and that was found to be patent. At this point no more intervention was needed. Using a 4-0 Biosyn stitch, a [id number] stitch was placed around our sheath and the sheath was pulled. The area was wet and dried, and Dermabond was placed. The patient tolerated the procedure with no complications. The patient was transferred to the PACU in stable condition. LEE RUTHERFORD DO BIOLOGY LECTURER/[id number]
== END 2019-03-09 18:06 | disposition home or self-care (01) | DRG 252 ==
LOC: JASU-SURG 08:52 → J7W 11:35
PROVIDERS: ADMIT Surgery Vascular Surgery; ATTEND Surgery Vascular Surgery
PROC: 05CY3ZZ Extirpation of Matter from Upper Vein, Percutaneous Approach (ICD-10-PCS; 2019-03-08)
PROC: B40FYZZ Plain Radiography of Right Lower Extremity Arteries using Other Contrast (ICD-10-PCS; principal; 2019-03-08 12:11)
DX: T82.591A Other mechanical complication of surgically created arteriovenous shunt, initial encounter (principal); N18.6 End stage renal disease; I12.0 Hypertensive chronic kidney disease with stage 5 chronic kidney disease or end stage renal disease; T82.858A Stenosis of other vascular prosthetic devices, implants and grafts, initial encounter; Y83.8 Other surgical procedures as the cause of abnormal reaction of the patient, or of later complication, without mention of misadventure at the time of the procedure; Z99.2 Dependence on renal dialysis; E87.5 Hyperkalemia
CPT/HCPCS: 36415; 76000-TC-FY; 82962; 84132; 86803; 87340; 93005; 93010; 94760; G0463-25; J1644

== ENCOUNTER 2019-03-19 13:07 | Inpatient (IN) | payer OTHER ==
--- NOTE | 2019-03-19 15:46 | PDOC ---
History of Present Illness - General Chief Complaint: Shortness of Breath Stated Complaint: ABD PAIN/VOMITING Time Seen by Provider: 03/19/19 15:27 - History of Present Illness Initial Comments: 03/19/19 16:32 58 y/o M hx of ESRD on HD (, , Tue). HTN, Diabetes, presents to the ED with 3-4 days of cough and congestion. He was seen at urgent care on Tuesday where he was given a breathing treatment and Z-brad, which he is still taking. cough is productive of clear phlegm. He denies any associated chest pain. He has felt no relief during this treatment. He endorses chills, night sweats, PND , decreased bowel movements (last BM was 3days ago) and nausea. He denies emesis , blood in urine (still makes some urine), abdominal pain. 03/19/19 17:20 03/19/19 19:32 Past History - Past Medical History Allergies/Adverse Reactions: Allergies Allergy/AdvReac Type Severity Reaction Status Date / Time No Known Drug Allergies Allergy Verified 03/19/19 13:24 Home Medications: Ambulatory Orders Minoxidil [Loniten -] 10 mg PO BID 07/21/16 Torsemide 100 mg PO DAILY 07/21/16 Calcium Acetate [Phoslo -] 667 mg PO TIDCM 08/09/16 Insulin (Levemir) [Levemir Flexpen -] 6 units SQ HS PRN 08/09/16 Clopidogrel Bisulfate [Plavix] 75 mg PO DAILY 03/21/18 Nifedipine ER [Procardia XL -] 30 mg PO HS 12/21/18 Anemia: No Asthma: No Cancer: No Cardiac Disorders: No CVA: No COPD: No CHF: No Dementia: No Diabetes: Yes Dialysis: Yes ([facility]) GI Disorders: No Disorders: No HTN: Yes Hypercholesterolemia: No Liver Disease: No Seizures: No Thyroid Disease: No - Surgical History Abdominal Surgery: Yes (trauma related as a child) Appendectomy: No Cardiac Surgery: No Cholecystectomy: No Lung Surgery: No Neurologic Surgery: No Orthopedic Surgery: Yes (RT FOOT SHARONA AMPUTATION x6, broken fingers) - Immunization History Td Vaccination: No Immunization Up to Date: No - Psycho Social/Smoking Cessation Hx Smoking Status: No Smoking History: Never smoked Have you smoked in the past 12 months: No Number of Cigarettes Smoked Daily: 0 Cigars Per Day: 0 Information on smoking cessation initiated: No Hx Alcohol Use: No Drug/Substance Use Hx: No Substance Use Type: None Hx Substance Use Treatment: No Review of Systems - Review of Systems Constitutional: Yes: Chills. No: Fever HEENTM: No: Eye Pain, Blurred Vision Respiratory: Yes: Cough Cardiac (ROS): No: Chest Pain, Lightheadedness ABD/GI: Yes: Abdominal Distended, Nausea : No: Burning, Dysuria Musculoskeletal: No: Back Pain, Joint Pain Integumentary: No: Bruising, Change in Color Neurological: No: Headache, Numbness *Physical Exam - Vital Signs Last Vital Signs Temp Pulse Resp BP Pulse Ox 97.9 F 54 L 20 110/51 L 93 L 03/19/19 13:19 03/19/19 13:19 03/19/19 13:19 03/19/19 13:19 03/19/19 13:19 - Physical Exam 03/19/19 16:28 GENERAL: Awake, alert, and fully oriented. HEAD: No signs of trauma, normocephalic, atraumatic EYES: PERRL, EOMI, sclera anicteric, conjunctiva clear ENT: Auricles normal inspection, hearing grossly normal, nares patent, oropharynx clear without exudates. Moist mucosa NECK: Normal ROM, supple, no lymphadenopathy, JVD, or masses LUNGS: diffuse expiratory wheezing and crackles. HEART: Regular rate and rhythm, normal S1 and S2, no murmurs, rubs or gallops, peripheral pulses normal and equal bilaterally. ABDOMEN: Soft, nontender, normoactive bowel sounds. No guarding, no rebound. EXTREMITIES : NEUROLOGICAL: Cranial nerves II through XII grossly intact. Normal speech, no focal sensorimotor deficits SKIN: Warm, Dry, normal turgor, no rashes or lesions noted 03/19/19 17:28 ED Treatment Course - LABORATORY CBC & Chemistry Diagram: 03/19/19 16:33 03/21/19 07:10 Medical Decision Making - Medical Decision Making 03/19/19 17:28 58 y/o M hx of ESRD on HD (, , Tue). HTN, Diabetes, presents to the ED with 3-4 days of cough and congestion. cbc, cmp, ekg, cardiac profile, chest x-ray 03/19/19 18:07 Pt. given Albuterol treatment repoerts no improvement in his breathing. Labs significant for BNP 54,584 Troponin (which could be due to is kidney disease)0.[address] abdomen pending as well as EKG. 03/19/19 18:0 03/19/19 18:23 Pt is hyperkalemic to 6.[address] Torres on board, recommends admission for dialysis - Calcium gluconate - dextrose -insuline -abisai exalate 03/19/19 19:31 Pt admitted to tele under Dr. Garrett. signed out to Dr. Alexander to follow up on CXR CT abdomen and pelvis w/o contrast finger stick glucose checks. 03/19/19 19:32 Discharge - Discharge Information Problems reviewed: Yes Clinical Impression/Diagnosis: ESRD (end stage renal disease), Hyperkalemia, diminished renal excretion Condition: Guarded - Follow up/Referral - Patient Discharge Instructions - Post Discharge Activity
[2019-03-19] MEDS ORDERED: ALBUTEROL SO4 0.083% IH SOL 2.5 MG/3 ML VIAL.NEB. NEB ONE ×2 (16:15→16:22)
[2019-03-19 17:07] LABS: BASO % 0.9 % (0-2.0); EOS % 0.8 % (0-4.5); HEMATOCRIT 30.4 % (35.4-49); HEMOGLOBIN 9.9 GM/dL (11.7-16.9); LYMPH % 13.7 % (8-40); MCH 29.9 pg (25.7-33.7); MCHC 32.7 g/dl (32.0-35.9); MEAN CELL VOLUME 91.3 fl (80-96); MONO % 14.6 % (3.8-10.2); PLATELET COUNT 151 K/MM3 (134-434); RBC 3.33 M/mm3 (4.00-5.60); RDW 16.8 % (11.9-15.9); WHITE BLOOD COUNT 7.5 K/mm3 (4.0-10.0)
--- NOTE | 2019-03-19 17:08 | PDOC ---
Attending Attestation - Resident Resident Name: Chantelle Zhang - ED Attending Attestation I have performed the following: I have examined & evaluated the patient, The case was reviewed & discussed with the resident, I agree w/resident's findings & plan, Exceptions are as noted - HPI HPI: 03/20/19 02:18 58-year-old male with end-stage renal disease and gets his dialysis on Tuesday and Tuesday presents with shortness of breath and cough x4 days - Physicial Exam PE: 03/19/19 21:57 I agree with the resident's exam - Medical Decision Making 03/19/19 18:36 58-year-old male with a history of end-stage renal disease with dialysis on Tuesday and Tuesday has had 3 to 4 days of cough He was seen in urgent care and placed on azithromycin He denies any significant shortness of breath or chest pain He does have a complaint of abdominal distention both he and his state that his abdomen is much more protuberant than normal and that his last bowel movement was 3 days ago He did have abdominal surgery for a traumatic puncture as a child 03/19/19 18:46 EKG sinus at 58 bpm with Mobitz 1 block, has this before in Jan 2019 03/19/19 19:12 Dr. Garrett will admit the patient Dr. Benavides I was consulted and will try to arrange for dialysis Patient to be admitted to telemetry Lab called and there is a critical value of potassium equals 6.9, labs are NOT hemolyzed Patient will be given calcium gluconate, an amp of D50, 10 units of insulin IV push Dr. Benavides was consulted EKG was done no significant changes from the past eat does have a history of Mobitz 1 03/19/19 19:19 03/19/19 21:55
[2019-03-19 17:59] LABS: ALBUMIN 3.2 g/dl (3.4-5.0); BILIRUBIN,TOTAL 0.5 mg/dL (0.2-1); CALCIUM 7.7 mg/dL (8.5-10.1); TOT PROT 7.6 g/dl (6.4-8.2)
[2019-03-19 18:14] LABS: BLOOD UREA NITROGEN 132.1 mg/dL (7-18); CREATININE 19.8 mg/dL (0.55-1.3)
[2019-03-19 18:15] LABS: POTASSIUM 6.9 mmol/L (3.5-5.1)
[2019-03-19] MEDS ORDERED: DEXTROSE 50%-WATER - 25 GM/50 ML VIAL IVPUSH ONE (18:15)
[2019-03-19] MEDS ORDERED: CALCIUM GLUCONATE 10% - 1,000 MG/10 ML VIAL IVPUSH ONE (18:15)
[2019-03-19] MEDS ORDERED: DEXTROSE 50%-WATER - 25 GM/50 ML VIAL IVPUSH PRN (18:15)
[2019-03-19] MEDS ORDERED: SODIUM BICARBONATE 4.2% 5 MEQ/10 ML DISP.SYRIN IVPUSH ONE (18:15)
[2019-03-19] MEDS ORDERED: SODIUM BICARBONATE 8.4% 50 MEQ/50 ML DISP.SYRIN IVPUSH ONE (18:16)
[2019-03-19] MEDS ORDERED: SODIUM CHLORIDE 250 ML IV PRN (18:29)
[2019-03-19] MEDS ORDERED: SODIUM POLYSTYRENE SULFONATE 15 GM/60 ML BOTTLE PO ONE (18:31)
[2019-03-19] MEDS ORDERED: CALCIUM GLUCONATE 10% - 1,000 MG/10 ML VIAL ONE (18:36)
[2019-03-19] MEDS ORDERED: SODIUM BICARBONATE 8.4% 50 MEQ/50 ML VIAL ONE (18:37)
[2019-03-19] MEDS ORDERED: SODIUM POLYSTYRENE SULFONATE 15 GM/60 ML BOTTLE ONE (18:46)
[2019-03-19] MEDS ORDERED: INSULIN REGULAR HUMAN 100 UNITS/ML *VIAL IVPUSH ONE (19:05)
[2019-03-19] MEDS ORDERED: INSULIN REGULAR HUMAN 100 UNITS/ML *VIAL ONE (19:15)
[2019-03-19] MEDS ORDERED: NIFEdipine E.R. 30 MG TABLET PO SCH (22:00)
[2019-03-20] MEDS: MINOXIDIL 10 MG TABLET PO SCH ×3 (02:43→23:31)
[2019-03-20] MEDS: INSULIN SLIDING SCALE (NOVOLOG) 1 VIAL SQ SCH ×5 (02:43→23:34)
[2019-03-20 02:50] VITALS: BMI 28.1
[2019-03-20 07:11] LABS: CALCIUM 7.2 mg/dL (8.5-10.1); POTASSIUM 4.9 mmol/L (3.5-5.1)
[2019-03-20 07:12] LABS: BLOOD UREA NITROGEN 111.4 mg/dL (7-18)
[2019-03-20 07:13] LABS: CREATININE 17.6 mg/dL (0.55-1.3)
--- NOTE | 2019-03-20 07:13 | HP ---
Admitting History and Physical - Primary Care Physician PCP: Ibis Garrett S - Admission Chief Complaint: cough, SOB< abd pain History of Present Illness: 58 y/o M hx of ESRD on HD (, , Tue). HTN, Diabetes, presents to the ED with 5 days of cough and congestion. He was seen at urgent care on Tuesday where he was given a breathing treatment and Z-brad, which he is still taking. cough is productive of clear phlegm. He denies any associated chest pain. He has felt no relief during this treatment. He endorses chills, night sweats, PND , decreased bowel movements (last BM was 3days ago) and nausea. He denies emesis , blood in urine (still makes some urine), but had some generalized abdominal pain. He came to ER yesterday and was found to have BUN 120 Creat 13 K 7; last HD tuesday (4 days ago) and last evening; received kayexalate, Insulin and GLU in ER and stools softeners, ATB, this am on 4w (admitted to telemetry for first AVB ) and he feels better no CP dizziness said he had some problems with RUE AVF and he saw dr Araiza recently History Source: Patient Limitations to Obtaining History: No Limitations - Past Medical History Cardiovascular: Yes: HTN Renal/: Yes: Renal Failure, Hemodialysis (on maintenance HD 2/2 hypertensive nephrosclerosis since 2013; on transplant list @ [place]) Heme/Onc: Yes: Anemia Infectious Disease: Yes: Other Musculoskeletal: Yes: Other (remote hx of L foot fracture/sports trauma ) Endocrine: Yes: Diabetes Mellitus - Past Surgical History Past Surgical History: Yes: Amputation (TMA on 08/10, Revision on 08/21) - Smoking History Smoking history: Never smoked Have you smoked in the past 12 months: No Aproximately how many cigarettes per day: 0 - Alcohol/Substance Use Hx Alcohol Use: No History of Substance Use: reports: None - Social History Usual Living Arrangement: Yes: Alone Do you think of yourself as: Straight/Heterosexual ADL: Independent Occupation: not working History of Recent Travel: Yes ([facility]) Home Medications - Allergies Allergies/Adverse Reactions: Allergies Allergy/AdvReac Type Severity Reaction Status Date / Time No Known Drug Allergies Allergy Verified 03/19/19 13:24 - Home Medications Home Medications: Ambulatory Orders Minoxidil [Loniten -] 10 mg PO BID 07/21/16 Torsemide 100 mg PO DAILY 07/21/16 Calcium Acetate [Phoslo -] 667 mg PO TIDCM 08/09/16 Insulin (Levemir) [Levemir Flexpen -] 6 units SQ HS PRN 08/09/16 Clopidogrel Bisulfate [Plavix] 75 mg PO DAILY 03/21/18 Nifedipine ER [Procardia XL -] 30 mg PO HS 12/21/18 Family Medical History Family History: Unremarkable Review of Systems - Review of Systems Constitutional: reports: Loss of Appetite, Weakness (general). denies: Chills, Fever, Lethargy Eyes: denies: Blind Spots, Blurred Vision, Double Vision HENT: denies: Difficult Swallowing, Ear Pain, Epistaxis Neck: denies: Decreased ROM, Pain on Movement, Stiffness, Tenderness Cardiovascular: reports: Shortness of Breath. denies: Chest Pain Respiratory: reports: Cough, Orthopnea, SOB, SOB on Exertion. denies: Hemoptysis, Wheezing Gastrointestinal: reports: Abdominal Pain, Bloating, Constipation. denies: Melena, Nausea, Rectal Bleeding, Vomiting, Vomiting Blood Genitourinary: denies: Burning, Dysuria, Flank Pain, Hematuria Musculoskeletal: reports: Other (RUE AVF). denies: Back Pain, Extremity Pain, Joint Pain, Joint Swelling, Muscle Weakness Integumentary: denies: Blister, Bruising, Change in Color, Eczema, Erythema, Wound Neurological: denies: Change in LOC, Change in Speech, Confusion, Dizziness, Weakness Endocrine: denies: Unexplained Weight Gain, Unexplained Weight Loss Hematology/Lymphatic: denies: Easily Bruised, Excessive Bleeding Psychiatric: denies: Altered Sleep Pattern, Anxiety, Depression, Suicidal Physical Examination Vital Signs: Vital Signs Temperature 98 F 03/20/19 02:43 Pulse Rate 59 L 03/20/19 02:43 Respiratory Rate 18 03/20/19 02:43 Blood Pressure 118/86 03/20/19 06:40 O2 Sat by Pulse Oximetry (%) 96 03/20/19 02:43 Constitutional: Yes: No Distress, Calm Eyes: Yes: Conjunctiva Clear HENT: Yes: Atraumatic Neck: Yes: Supple Cardiovascular: Yes: Regular Rate and Rhythm Respiratory: Yes: CTA Bilaterally Gastrointestinal: Yes: Soft. No: Tenderness Renal/: No: Hematuria Musculoskeletal: No: Joint Stiffness, Joint Swelling Extremities: Yes: Other (RUE AVF). No: Cold, Cool, Cyanosis Edema: No Integumentary: No: Rash, Venous Stasis Changes Neurological: Yes: WNL, Alert, Oriented ...Motor Strength: WNL Psychiatric: Yes: WNL, Alert, Oriented. No: Agitated, Suicidal Ideation Labs: CBC, BMP 03/19/19 16:33 03/20/19 06:22 Imaging - Results Chest X-ray: Report Reviewed Other: Report Reviewed Assessment/Plan 58 y/o M hx of ESRD on HD (, , Tue). HTN, Diabetes, presents to the ED with 5 days of cough and congestion. on po Z-brad, still with cough and SOB, also constipation and abd pain. HyperK, AVB; ARF/CRF fluid OL, admitted to telemetry s/p hyperK treatment in ER and with dialysis cardiology and renal eval; f/u labs and EKG dialysis per renal bronchitis: IV ceftriaxone; CXR clear abd pain abd CT ordered in ER pending; stools softeners; feels better now; d/w pt will need close GI f/u - after DC home if improved in H (otherwise will ask for GI eval as inpt); to be up to date with colonoscopy falls pfx vascular sx eval for AVF d/w pt and staff
[2019-03-20] MEDS: CALCIUM ACETATE 667 MG CAPSULE (FP) PO SCH ×3 (08:21→18:00)
--- NOTE | 2019-03-20 09:26 | EKG ---
Test Reason : Blood Pressure : / mmHG Vent. Rate : 058 BPM Atrial Rate : 072 BPM P-R Int : 000 ms QRS Dur : 088 ms QT Int : 456 ms P-R-T Axes : 069 -10 084 degrees QTc Int : 447 ms SINUS RHYTHM WITH MOBITZ I (WENCKEBACH) BLOCK LOW VOLTAGE QRS CANNOT RULE OUT ANTEROSEPTAL INFARCT (CITED ON OR BEFORE 10-FEB-2019) ABNORMAL ECG Confirmed by Oliverio Archer MD ([id number]) on 03/20/2019 9:26:27 AM Referred By: Confirmed By:Oliverio Archer MD
[2019-03-20] MEDS ORDERED: CLOPIDOGREL BISULFATE 75 MG TABLET (FP) PO SCH (10:00)
[2019-03-20] MEDS ORDERED: CEFTRIAXONE 1 GM in DEXTROSE 5%-WATER - 50 ML IVPB SCH (10:00)
[2019-03-20] MEDS ORDERED: TORSEMIDE 20 MG TABLET (FP) PO SCH (10:00)
[2019-03-20] MEDS ORDERED: POLYETHYLENE GLYCOL 3350 119 GM BTL PO SCH (10:00)
[2019-03-20] MEDS ORDERED: PT OWN MED DRAWER 7, Y5N ONE ×3 (11:12→23:04)
[2019-03-20] MEDS ORDERED: cefTRIAXone SODIUM 1 GM VIAL ONE (11:13)
[2019-03-20] MEDS ORDERED: DEXTROSE 5%-WATER - 50 ML IVPB ONE (11:13)
--- NOTE | 2019-03-20 11:56 | CON.CARD ---
Consult Consult Specialty:: Cardiology Referred by:: Medicine Reason for Consultation:: abnormal EKG - History of Present Illness Chief Complaint: short of breath, cough History of Present Illness: 58M h/o ESRD on HD TTS, HTN, DM p/w cough, congestion. Recently seen at urgent care given Elvi, didn't feel better. Last HD on Sat. Sees Dr. Dueñas for cardio, last in 2016. In the ER K 6.9, BNP >64981. Feels better today after HD. - Past Medical History Cardio/Vascular: Yes: HTN Renal/: Yes: Renal Failure, Hemodialysis (on maintenance HD 2/2 hypertensive nephrosclerosis since 2013; on transplant list @ [place]) Infectious Disease: Yes: Other Musculoskeletal: Yes: Other (remote hx of L foot fracture/sports trauma ) Endocrine: Yes: Diabetes Mellitus - Past Surgical History Past Surgical History: Yes: Amputation (TMA on 08/10, Revision on 08/21) - Alcohol/Substance Use Hx Alcohol Use: No History of Substance Use: reports: None - Smoking History Smoking history: Never smoked Have you smoked in the past 12 months: No Aproximately how many cigarettes per day: 0 - Social History Usual Living Arrangement: With Significant Other ADL: Independent Occupation: not working History of Recent Travel: Yes ([facility]) Home Medications - Allergies Allergies/Adverse Reactions: Allergies Allergy/AdvReac Type Severity Reaction Status Date / Time No Known Drug Allergies Allergy Verified 03/19/19 13:24 - Home Medications Home Medications: Ambulatory Orders Minoxidil [Loniten -] 10 mg PO BID 07/21/16 Torsemide 100 mg PO DAILY 07/21/16 Calcium Acetate [Phoslo -] 667 mg PO TIDCM 08/09/16 Insulin (Levemir) [Levemir Flexpen -] 6 units SQ HS PRN 08/09/16 Clopidogrel Bisulfate [Plavix] 75 mg PO DAILY 03/21/18 Nifedipine ER [Procardia XL -] 30 mg PO HS 12/21/18 Family Medical History Family History: Unremarkable Review of Systems - Review of Systems Constitutional: reports: Chills, Weakness Eyes: reports: No Symptoms HENT: reports: No Symptoms Neck: reports: No Symptoms Cardiovascular: reports: No Symptoms Respiratory: reports: No Symptoms Gastrointestinal: reports: No Symptoms Genitourinary: reports: No Symptoms Musculoskeletal: reports: No Symptoms Integumentary: reports: No Symptoms Neurological: reports: No Symptoms Endocrine: reports: No Symptoms Hematology/Lymphatic: reports: No Symptoms Psychiatric: reports: No Symptoms Vital Signs: Vital Signs Temperature 98 F 03/20/19 10:00 Pulse Rate 58 L 03/20/19 10:00 Respiratory Rate 03/20/19 10:00 Blood Pressure 118/52 L 03/20/19 10:00 O2 Sat by Pulse Oximetry (%) 96 03/20/19 02:43 Constitutional: Yes: Well Nourished, No Distress, Calm Eyes: Yes: Conjunctiva Clear, EOM Intact HENT: Yes: Atraumatic, Normocephalic Neck: Yes: Supple, Trachea Midline Respiratory: Yes: Regular, CTA Bilaterally Gastrointestinal: Yes: Normal Bowel Sounds, Soft Cardiovascular: Yes: Regular Rate and Rhythm JVD: No Carotid Bruit: No PMI: Non-Displaced Heart Sounds: Yes: S1, S2 Extremities: No: Cold Edema: No Integumentary: No: Jaundice Neurological: Yes: Alert, Oriented Psychiatric: No: Agitated - Other Data Labs, Other Data: CBC, BMP 03/19/19 16:33 03/20/19 06:22 Troponin, BNP 03/19/19 03/19/19 16:33 16:33 Troponin I 0.08 H B-Natriuretic Peptide 80852.3 H Troponin, BNP 03/19/19 03/19/19 16:33 16:33 Troponin I 0.08 H B-Natriuretic Peptide 40380.3 H Assessment/Plan EKG: sinus, wenckebach, low voltage tele: sinus elli, wenckebach abnormal EKG, sinus elli, wenckebach - similar to prior EKGs since 2018 - monitoring on tele - check echo - no history of dizziness, syncope acute on chronic diastolic HF, history of hypertensive heart disease - cont torsemide - HD per renal - EF 50-55% 2017, repeat echo as above ESRD, hyperkalemia - manage per renal - improved after HD DM - manage per primary HTN - cont current meds PAD - cont plavix
[2019-03-20] MEDS ORDERED: LIDOCAINE HCL 2% (20ML MULTI-DOSE VIAL) ONE (12:54)
[2019-03-20] MEDS ORDERED: HEPARIN NA (PORCINE) 5,000 UNITS/ML 1ML VIAL ONE ×2 (12:54→13:34)
[2019-03-20] MEDS ORDERED: MIDAZOLAM HCL 2 MG/2 ML SINGLE DOSE VIAL ONE ×3 (14:11→15:17)
[2019-03-20] MEDS ORDERED: ceFAZolin SODIUM 1 GM VIAL IVPB ONE ×2 (14:12→14:20)
[2019-03-20] MEDS ORDERED: IOHEXOL 300 MG/ML INFUS..BTL IV ONE ×2 (14:13→14:23)
[2019-03-20] MEDS ORDERED: HEPARIN NA (PORCINE) 5,000 UNITS/ML 1ML VIAL SQ ONE ×2 (14:13→14:23)
[2019-03-20] MEDS ORDERED: LIDOCAINE HCL 1%, 10 MG/ML (20ML VIAL) NR ONE ×4 (14:13→14:23)
[2019-03-20] MEDS ORDERED: ceFAZolin SODIUM 1 GM VIAL ONE (14:20)
--- NOTE | 2019-03-20 16:50 | OP ---
Operative Note - Note: Operative Date: 03/20/19 Pre-Operative Diagnosis: malfunctioning right AVF Operation: venogram, venoplasty right avf, insertion of permacath Post-Operative Diagnosis: Same as Pre-op Surgeon: Lee Araiza Anesthesia: Fractional Estimated Blood Loss (mls): 50 Operative Report Dictated: Yes
--- NOTE | 2019-03-20 17:42 | CONSULT ---
Consult Consult Specialty:: Nephrology Reason for Consultation:: ESRD - History of Present Illness Chief Complaint: recirculating fistula History of Present Illness: Pt is a 58 year old male with pmhx of esrd, TTS schedule, htn, DM, who presents with cough and congestion. He was treated with a z-pack. He was found to be uremic and found to have a fistula that was recirculating. 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 He was taken for a permacath today. He feels that his breathing is improved. He denies chest pain. He tolerated surgery. He does have some nausea still. I was called by Dr Torres to see the pt today as coverage. Pt denies fevers or chills. - History Source History Provided By: Patient, Medical Record - Past Medical History Cardio/Vascular: Yes: HTN Renal/: Yes: Renal Failure, Hemodialysis (on maintenance HD 2/2 hypertensive nephrosclerosis since 2013; on transplant list @ [place]) Infectious Disease: Yes: Other Musculoskeletal: Yes: Other (remote hx of L foot fracture/sports trauma ) Endocrine: Yes: Diabetes Mellitus - Past Surgical History Past Surgical History: Yes: Amputation (TMA on 08/10, Revision on 08/21) - Alcohol/Substance Use Hx Alcohol Use: No History of Substance Use: reports: None - Smoking History Smoking history: Never smoked Have you smoked in the past 12 months: No Aproximately how many cigarettes per day: 0 - Social History Usual Living Arrangement: With Significant Other ADL: Independent Occupation: not working History of Recent Travel: Yes ([facility]) Home Medications - Allergies Allergies/Adverse Reactions: Allergies Allergy/AdvReac Type Severity Reaction Status Date / Time No Known Drug Allergies Allergy Verified 03/19/19 13:24 - Home Medications Home Medications: Ambulatory Orders Minoxidil [Loniten -] 10 mg PO BID 07/21/16 Torsemide 100 mg PO DAILY 07/21/16 Calcium Acetate [Phoslo -] 667 mg PO TIDCM 08/09/16 Insulin (Levemir) [Levemir Flexpen -] 6 units SQ HS PRN 08/09/16 Clopidogrel Bisulfate [Plavix] 75 mg PO DAILY 03/21/18 Nifedipine ER [Procardia XL -] 30 mg PO HS 12/21/18 Family Medical History Family History: Denies Review of Systems - Review of Systems Constitutional: reports: Malaise Eyes: reports: No Symptoms HENT: reports: No Symptoms Neck: reports: No Symptoms Cardiovascular: denies: Edema Respiratory: reports: Cough Genitourinary: reports: No Symptoms Musculoskeletal: reports: No Symptoms Integumentary: reports: No Symptoms Neurological: reports: No Symptoms Endocrine: reports: No Symptoms Hematology/Lymphatic: reports: No Symptoms Psychiatric: reports: No Symptoms Physical Exam Vital Signs: Vital Signs Temperature 98 F 03/20/19 10:00 Pulse Rate 58 L 03/20/19 10:00 Respiratory Rate 03/20/19 10:00 Blood Pressure 118/52 L 03/20/19 10:00 O2 Sat by Pulse Oximetry (%) 96 03/20/19 09:00 Constitutional: Yes: Calm Eyes: Yes: Conjunctiva Clear HENT: Yes: Atraumatic Neck: Yes: Supple Cardiovascular: Yes: S1, S2 Respiratory: Yes: On Nasal O2 Gastrointestinal: Yes: Soft Renal/: Yes: WNL Musculoskeletal: Yes: WNL Edema: No Neurological: Yes: Oriented Psychiatric: Yes: Oriented Labs: CBC, BMP 03/19/19 16:33 03/20/19 06:22 Imaging - Results Chest X-ray: Report Reviewed Problem List - Problems (1) Acute hyperkalemia Code(s): E87.5 - HYPERKALEMIA (2) Anemia in ESRD (end-stage renal disease) Code(s): N18.6 - END STAGE RENAL DISEASE; D63.1 - ANEMIA IN CHRONIC KIDNEY DISEASE Assessment/Plan Current Medications Generic Name Dose Route Start Last Admin Trade Name Freq PRN Reason Stop Dose Admin Calcium Acetate 667 mg 03/20/19 08:00 03/20/19 12:46 Phoslo - PO Not Given TIDCM MONIK Clopidogrel Bisulfate 75 mg 03/20/19 10:00 03/20/19 11:33 Plavix - PO 75 mg DAILY MONIK Administration Sodium Chloride 250 mls @ 3,000 mls/hr 03/19/19 18:29 Normal Saline - IV 03/20/19 18:29 PRN PRN Hypotension during Dialysis Insulin Aspart 1 vial 03/19/19 22:00 03/20/19 11:42 Novolog Vial Sliding Scale - SQ Not Given ACHS MONIK Protocol Minoxidil 10 mg 03/19/19 22:00 03/20/19 12:47 Loniten - PO Not Given BID MONIK Nifedipine 30 mg 03/19/19 22:00 03/20/19 02:43 Procardia Xl - PO Not Given HS MONIK Polyethylene Glycol 17 gm 03/20/19 10:00 03/20/19 12:30 Miralax (For Daily Use) - PO Not Given DAILY MONIK Torsemide 100 mg 03/20/19 10:00 03/20/19 12:29 Demadex - PO 100 mg DAILY MONIK Administration 1. Hyperkalemia 2. AVF recirculation 3. ESRD on HD 4. Hypertension 5. s/p permacath Plan - will arrange for HD today via permacath - discussed with vascular - monitor bp - renal diet - will arrange for bedside HD in tele
[2019-03-20] MEDS: NIFEdipine E.R. 30 MG TABLET PO SCH (23:31)
[2019-03-21] MEDS: INSULIN SLIDING SCALE (NOVOLOG) 1 VIAL SQ SCH ×4 (06:31→21:09)
--- NOTE | 2019-03-21 07:14 | PN ---
Progress Note, Physician Chief Complaint: has body aches and feeling tired; no cough sore throat or fever s/p permacath placement s/p dialysis yesterday - Current Medication List Current Medications: Active Medications Calcium Acetate (Phoslo -) 667 mg PO TIDCM [facility] Clopidogrel Bisulfate (Plavix -) 75 mg PO DAILY [facility] Sodium Chloride (Normal Saline -) 250 mls @ 3,000 mls/hr IV PRN PRN PRN Reason: Hypotension during Dialysis Stop: 03/21/19 17:43 Insulin Aspart (Novolog Vial Sliding Scale -) 1 vial SQ ACHS [facility]; Protocol Last Admin: 03/21/19 06:31 Dose: Not Given Minoxidil (Loniten -) 10 mg PO BID [facility] Last Admin: 03/20/19 23:31 Dose: Not Given Nifedipine (Procardia Xl -) 30 mg PO HS [facility] Last Admin: 03/20/19 23:31 Dose: Not Given Polyethylene Glycol (Miralax (For Daily Use) -) 17 gm PO DAILY [facility] Torsemide (Demadex -) 100 mg PO DAILY [facility] - Objective Vital Signs: Vital Signs Temperature 98.2 F 03/20/19 17:57 Pulse Rate 58 L 03/20/19 21:24 Respiratory Rate 18 03/20/19 21:24 Blood Pressure 107/56 L 03/21/19 06:00 O2 Sat by Pulse Oximetry (%) 100 03/20/19 17:57 Constitutional: Yes: No Distress, Calm Eyes: Yes: Conjunctiva Clear HENT: Yes: Atraumatic Neck: Yes: Supple Cardiovascular: Yes: Regular Rate and Rhythm Respiratory: Yes: CTA Bilaterally Gastrointestinal: Yes: Soft. No: Tenderness Genitourinary: No: Hematuria Musculoskeletal: No: Joint Stiffness, Joint Swelling Extremities: No: Cold, Cool, Cyanosis Edema: No Integumentary: No: Rash, Venous Stasis Changes Neurological: Yes: Alert, Oriented ...Motor Strength: WNL Psychiatric: Yes: Alert, Oriented. No: Agitated, Suicidal Ideation Labs: CBC, BMP 03/19/19 16:33 03/20/19 06:22 - ....Imaging Other: Report Reviewed Assessment/Plan 58 y/o M hx of ESRD on HD (, , Tue). HTN, Diabetes, presents to the ED with 5 days of cough and congestion. on po Z-brad, still with cough and SOB, also constipation and abd pain. HyperK, AVB; ARF/CRF fluid OL, admitted to telemetry s/p hyperK treatment in ER and with dialysis cardiology and renal eval; f/u labs and EKG dialysis per renal falls pfx vascular sx f/u check flu test d/w pt and staff
[2019-03-21 08:37] LABS: ALBUMIN 2.7 g/dl (3.4-5.0); BILIRUBIN,TOTAL 0.6 mg/dL (0.2-1); BLOOD UREA NITROGEN 62.3 mg/dL (7-18); POTASSIUM 4.2 mmol/L (3.5-5.1)
[2019-03-21] MEDS: CALCIUM ACETATE 667 MG CAPSULE (FP) PO SCH ×3 (09:00→18:12)
--- NOTE | 2019-03-21 09:13 | PN ---
Progress Note (short form) - Note Progress Note: VASCULAR SURGERY 58yo M s/p RUE AVF thrombectomy and permacath placement, POD 1. Were unable to open up Rt AVF so permacath was placed. Pt had HD yesterday evening without issue. Pt states that he is currently feeling tired. Denies n/v, fever, chills. Last Vital Signs Temp Pulse Resp BP Pulse Ox 98.2 F 58 L 18 107/56 L 100 03/20/19 17:57 03/20/19 21:24 03/20/19 21:24 03/21/19 06:00 03/20/19 17:57 CBC, BMP 03/19/19 16:33 03/21/19 07:10 PE: Gen: A&O x3 Resp: breathing comfortably Chest: Lt permacath in place with no drainage or erythema RUE: AVF no thrill, suture in place over incision no erythema or discharge. Problem List - Problems (1) Dialysis AV fistula malfunction Assessment/Plan: Plan -pt will need new HD access, but can be discharged with permacath for access -no further surgical intervention needed on this admission. -pt should follow up with Dr. Araiza in 1 week for follow up. Pt discussed with Dr. Araiza who agrees with plan Code(s): T82.590A - [facility] COMPL OF SURGICALLY CREATED ARTERIOVENOUS FISTULA, INIT
[2019-03-21] MEDS ORDERED: PT OWN MED DRAWER 7, Y5N ONE (09:59)
[2019-03-21] MEDS: TORSEMIDE 100 MG TABLET PO SCH (11:10)
[2019-03-21] MEDS: CLOPIDOGREL BISULFATE 75 MG TABLET (FP) PO SCH (11:10)
[2019-03-21] MEDS: MINOXIDIL 10 MG TABLET PO SCH (11:11)
[2019-03-21] MEDS: POLYETHYLENE GLYCOL 3350 119 GM BTL PO SCH (11:14)
--- NOTE | 2019-03-21 11:34 | ECHO ---
Version: 1 Name: ZAK THOMPSON Exam: Adult Echocardiogram Study Date: 03/21/2019, 9:48 AM Age: 58 Years MMode/2D Measurements & Calculations IVSd: 1.75 cm LVIDs: 2.7 cm LVIDd: 4.6 cm LVPWd: 1.60 cm LAV (MOD-bp): 103.0 ml ACS: 1.80 cm Ao root diam: 3.2 cm LVOT diam: 1.98 cm LA dimension: 3.9 cm Doppler Measurements & Calculations MV E max jacky: 146.0 cm/sec MVA(VTI): 1.72 cm MV A max jacky: 136.4 cm/sec MV V2 max: 149.3 cm/sec MV mean P.7 mmHg MV max P.9 mmHg MV E/A: 1.07 Med E/e': 25.8 Lat E/e': 17.4 Med Peak E' Jacky: 5.7 cm/sec Lat Peak E' Jacky: 8.4 cm/sec Ao max P.4 mmHg TOBIAS(I,D): 2.8 cm Ao mean P.0 mmHg LV V1 mean: 108.4 cm/sec Ao V2 max: 187.7 cm/sec LV V1 mean P.6 mmHg PI end-d jacky: 119.4 cm/sec TR max jacky: 236.2 cm/sec TR max P.8 mmHg Left Ventricle There is moderate concentric left ventricular hypertrophy. The left ventricle is normal in size. Eje ction Fraction = 70%. Left ventricular systolic function is normal. The transmitral spectral Doppler flow pattern is suggestive of impaired LV relaxation. D-Shaped LV c/w pressure overload. Right Ventricle The right ventricle is moderately dilated. The right ventricular systolic function is mildly reduced . Atria The left atrial size is normal. The right atrium is moderately dilated. Mitral Valve There is moderate mitral annular calcification. There is mild mitral regurgitation. Tricuspid Valve The tricuspid valve is not well visualized, but is grossly normal. There is moderate tricuspid regur gitation. Aortic Valve There is moderate aortic sclerosis.;. Pulmonic Valve The pulmonic valve is not well seen, but is grossly normal. Mild pulmonic valvular regurgitation. Great Vessels The aortic root is normal size. Normal aortic arch, descending and ascending aorta. Pericardium/Pleura There is no pericardial effusion. Summary Statements There is moderate concentric left ventricular hypertrophy. The left ventricle is normal in size. Ejection Fraction = 70%. Left ventricular systolic function is normal. The transmitral spectral Doppler flow pattern is suggestive of impaired LV relaxation. The right ventricle is moderately dilated. The right ventricular systolic function is mildly reduced. The left atrial size is normal. The right atrium is moderately dilated. There is moderate mitral annular calcification. There is mild mitral regurgitation. There is moderate tricuspid regurgitation. The tricuspid valve is not well visualized, but is grossly normal. There is moderate aortic sclerosis.; The pulmonic valve is not well seen, but is grossly normal. Mild pulmonic valvular regurgitation. The aortic root is normal size. Normal aortic arch, descending and ascending aorta There is no pericardial effusion. D-Shaped LV c/w pressure overload. Brady Ochoa 03/21/2019, 11:33 AM Ordering Physician: MARTÍN WEAVER Referring Physician: MARTÍN WEAVER Performed By: Darcie Disla
--- NOTE | 2019-03-21 12:47 | PN ---
Progress Note (short form) - Note Progress Note: s: s/p permacath yesterday, feels tired. no chest pain,palps, dizziness Current Medications Calcium Acetate (Phoslo -) 667 mg PO TIDCM [facility] Last Admin: 03/21/19 11:10 Dose: 667 mg Clopidogrel Bisulfate (Plavix -) 75 mg PO DAILY [facility] Last Admin: 03/21/19 11:10 Dose: 75 mg Sodium Chloride (Normal Saline -) 250 mls @ 3,000 mls/hr IV PRN PRN PRN Reason: Hypotension during Dialysis Stop: 03/21/19 17:43 Insulin Aspart (Novolog Vial Sliding Scale -) 1 vial SQ ACHS [facility]; Protocol Last Admin: 03/21/19 06:31 Dose: Not Given Minoxidil (Loniten -) 10 mg PO BID [facility] Last Admin: 03/21/19 11:11 Dose: Not Given Nifedipine (Procardia Xl -) 30 mg PO HS [facility] Last Admin: 03/20/19 23:31 Dose: Not Given Polyethylene Glycol (Miralax (For Daily Use) -) 17 gm PO DAILY [facility] Last Admin: 03/21/19 11:14 Dose: Not Given Torsemide (Demadex -) 100 mg PO DAILY [facility] Last Admin: 03/21/19 11:10 Dose: 100 mg Vital Signs Period Temp Pulse Resp BP Sys/Salas Pulse Ox Last 24 Hr 98.2 F-98.7 F 46-60 16-22 90-125/37-63 95-100 Constitutional: Yes: Well Nourished, No Distress, Calm Eyes: Yes: Conjunctiva Clear, EOM Intact HENT: Yes: Atraumatic, Normocephalic Neck: Yes: Supple, Trachea Midline Respiratory: Yes: Regular, CTA Bilaterally Gastrointestinal: Yes: Normal Bowel Sounds, Soft Cardiovascular: Yes: Regular Rate and Rhythm JVD: No Carotid Bruit: No PMI: Non-Displaced Heart Sounds: Yes: S1, S2 Extremities: No: Cold Edema: No Integumentary: No: Jaundice Neurological: Yes: Alert, Oriented Psychiatric: No: Agitated EKG: sinus, wenckebach, low voltage echo 03/2019 mod conc LVH, nl LV function, impaired relaxation, RV mildly dilated , mildly reduced RV funciton, mod dilated RA, mod MAC, mild MR, mod TR, D shaped LV c/w pressure overload tele: sinus elli, wenckebach abnormal EKG, sinus elli, wenckebach - similar to prior EKGs since 2018 - monitoring on tele - no history of dizziness, syncope acute on chronic diastolic HF, history of hypertensive heart disease - echo nl LV function with mildly reduced Rv function, dilated R heart and evidence of increased filling pressures - cont torsemide - HD per renal ESRD, hyperkalemia - manage per renal, s/p permacath - improved after HD DM - manage per primary HTN - cont current meds PAD - cont plavix dc tele
--- NOTE | 2019-03-21 15:57 | PN ---
Progress Note (short form) - Note Progress Note: Renal follow up for ESRD Seen and examined at the bedside complains of fatigue no sob, cp, fever, chills s/p HD last night Vital Signs Temperature 98.5 F 03/21/19 10:00 Pulse Rate 54 L 03/21/19 10:00 Respiratory Rate 22 H 03/21/19 10:00 Blood Pressure 105/50 L 03/21/19 10:00 O2 Sat by Pulse Oximetry (%) 98 03/21/19 09:00 Intake & Output 03/18/19 03/19/19 03/20/19 03/21/19 23:59 23:59 23:59 23:59 Intake Total 400 1250 100 Output Total 2500 1550 Balance -2100 -300 100 Weight 90.718 kg 88.904 kg NAD RRR CTA no LE edmea right IJ tunneled hD catheter CBC, BMP 03/19/19 16:33 03/21/19 07:10 Current Medications Calcium Acetate (Phoslo -) 667 mg PO TIDCM [facility] Last Admin: 03/21/19 11:10 Dose: 667 mg Clopidogrel Bisulfate (Plavix -) 75 mg PO DAILY [facility] Last Admin: 03/21/19 11:10 Dose: 75 mg Sodium Chloride (Normal Saline -) 250 mls @ 3,000 mls/hr IV PRN PRN PRN Reason: Hypotension during Dialysis Stop: 03/21/19 17:43 Insulin Aspart (Novolog Vial Sliding Scale -) 1 vial SQ ACHS [facility]; Protocol Last Admin: 03/21/19 13:00 Dose: Not Given Minoxidil (Loniten -) 10 mg PO BID [facility] Last Admin: 03/21/19 11:11 Dose: Not Given Nifedipine (Procardia Xl -) 30 mg PO HS [facility] Last Admin: 03/20/19 23:31 Dose: Not Given Polyethylene Glycol (Miralax (For Daily Use) -) 17 gm PO DAILY [facility] Last Admin: 03/21/19 11:14 Dose: Not Given Torsemide (Demadex -) 100 mg PO DAILY [facility] Last Admin: 03/21/19 11:10 Dose: 100 mg 58 year old male with pmhx of esrd, TTS schedule, htn, DM, who presents with cough and congestion and found to have very high BUN and hyperkalemia. 1. Dialysis access recirculation 2. ESRD 3. Hyperkalemia 4. Anemia in CKD 5. Hypertesnion s/p dialysis yesterday. No acute need for dialysis today. Will need new AVF placement as an outpatient. discharge plannig as per primary team continue present HTN meds. Cm Torres DO
[2019-03-21] MEDS ORDERED: ACETAMINOPHEN 325 MG TABLET (FP) PO PRN (20:21)
[2019-03-21] MEDS: NIFEdipine E.R. 30 MG TABLET PO SCH (21:09)
[2019-03-22] MEDS: INSULIN SLIDING SCALE (NOVOLOG) 1 VIAL SQ SCH ×4 (06:31→21:32)
[2019-03-22 07:37] LABS: BASO % 0.8 % (0-2.0); EOS % 1.6 % (0-4.5); HEMATOCRIT 25.9 % (35.4-49); HEMOGLOBIN 8.7 GM/dL (11.7-16.9); MCH 30.3 pg (25.7-33.7); MCHC 33.7 g/dl (32.0-35.9); MEAN CELL VOLUME 89.9 fl (80-96); MEAN PLT VOLUME 8.7 fl (7.5-11.1); MONO % 16.7 % (3.8-10.2); NEUT % 64.9 % (42.8-82.8); PLATELET COUNT 139 K/MM3 (134-434); RBC 2.88 M/mm3 (4.00-5.60); RDW 16.4 % (11.9-15.9); WHITE BLOOD COUNT 6.6 K/mm3 (4.0-10.0)
--- NOTE | 2019-03-22 07:51 | PN ---
Progress Note, Physician Chief Complaint: had low grade temp last evening, feeling tired; L elbow hurts - Current Medication List Current Medications: Active Medications Acetaminophen (Tylenol -) 650 mg PO Q6H PRN PRN Reason: PAIN LEVEL 1-5 Last Admin: 03/21/19 21:09 Dose: 650 mg Calcium Acetate (Phoslo -) 667 mg PO TIDCM [facility] Last Admin: 03/21/19 18:12 Dose: 667 mg Clopidogrel Bisulfate (Plavix -) 75 mg PO DAILY [facility] Last Admin: 03/21/19 11:10 Dose: 75 mg Sodium Chloride (Normal Saline -) 250 mls @ 3,000 mls/hr IV PRN PRN PRN Reason: Hypotension during Dialysis Stop: 03/21/19 17:43 Insulin Aspart (Novolog Vial Sliding Scale -) 1 vial SQ ACHS [facility]; Protocol Last Admin: 03/22/19 06:31 Dose: Not Given Nifedipine (Procardia Xl -) 30 mg PO HS [facility] Last Admin: 03/21/19 21:09 Dose: 30 mg Polyethylene Glycol (Miralax (For Daily Use) -) 17 gm PO DAILY [facility] Last Admin: 03/21/19 11:14 Dose: Not Given Torsemide (Demadex -) 100 mg PO DAILY [facility] Last Admin: 03/21/19 11:10 Dose: 100 mg - Objective Vital Signs: Vital Signs Temperature 97.9 F 03/22/19 06:00 Pulse Rate 51 L 03/22/19 06:00 Respiratory Rate 20 03/22/19 06:00 Blood Pressure 110/45 L 03/22/19 06:00 O2 Sat by Pulse Oximetry (%) 97 03/21/19 21:00 Constitutional: Yes: No Distress, Calm Eyes: Yes: Conjunctiva Clear HENT: Yes: Atraumatic Neck: Yes: Supple Cardiovascular: Yes: Regular Rate and Rhythm Respiratory: Yes: CTA Bilaterally Gastrointestinal: Yes: Soft. No: Tenderness Genitourinary: No: Hematuria Musculoskeletal: Yes: Other (L elbow bursitis?). No: Joint Stiffness, Joint Swelling Extremities: No: Cold, Cool Edema: No Integumentary: No: Erythema, Rash, Venous Stasis Changes Neurological: Yes: Alert, Oriented. No: Aphasia ...Motor Strength: WNL Psychiatric: Yes: Alert, Oriented - ....Imaging Other: Report Reviewed Assessment/Plan 58 y/o M hx of ESRD on HD (, , Tue). HTN, Diabetes, presents to the ED with 5 days of cough and congestion. on po Z-brad, still with cough and SOB, also constipation and abd pain. HyperK, AVB; ARF/CRF fluid OL, s/p permacath low grade fever ATB per ID L elbow pain bursitis? rheum eval cardiology and renal f/u; f/u labs and EKG dialysis per renal falls pfx flu test still pending d/w pt and staff
[2019-03-22 08:25] LABS: ALBUMIN 2.6 g/dl (3.4-5.0); BILIRUBIN,TOTAL 0.8 mg/dL (0.2-1); BLOOD UREA NITROGEN 73.5 mg/dL (7-18); CALCIUM 7.1 mg/dL (8.5-10.1); POTASSIUM 4.3 mmol/L (3.5-5.1); TOT PROT 6.4 g/dl (6.4-8.2)
[2019-03-22 08:33] LABS: CREATININE 13.3 mg/dL (0.55-1.3)
[2019-03-22] MEDS ORDERED: SODIUM CHLORIDE 250 ML IV PRN ×2 (09:47→10:00)
[2019-03-22] MEDS: POLYETHYLENE GLYCOL 3350 119 GM BTL PO SCH (09:57)
[2019-03-22] MEDS: CLOPIDOGREL BISULFATE 75 MG TABLET (FP) PO SCH (09:57)
[2019-03-22] MEDS: TORSEMIDE 100 MG TABLET PO SCH (09:57)
[2019-03-22] MEDS: CALCIUM ACETATE 667 MG CAPSULE (FP) PO SCH ×3 (09:57→18:04)
[2019-03-22] MEDS ORDERED: EPOETIN ALFA-EPBX 10,000 UNIT/ML VIAL IVPUSH ONE (10:00)
--- NOTE | 2019-03-22 11:14 | PN ---
Progress Note (short form) - Note Progress Note: s: feels tired. no chest pain,palps, dizziness sob Current Medications Generic Name Dose Route Start Last Admin Trade Name Gunnar PRN Reason Stop Dose Admin Acetaminophen 650 mg 03/21/19 20:21 03/21/19 21:09 Tylenol - PO 650 mg Q6H PRN Administration PAIN LEVEL 1-5 Calcium Acetate 667 mg 03/21/19 08:00 03/22/19 09:57 Phoslo - PO 667 mg TIDCM MONIK Administration Clopidogrel Bisulfate 75 mg 03/21/19 10:00 03/22/19 09:57 Plavix - PO 75 mg DAILY MONIK Administration Sodium Chloride 250 mls @ 3,000 mls/hr 03/22/19 09:47 Normal Saline - IV 03/23/19 09:47 PRN PRN Hypotension during Dialysis Insulin Aspart 1 vial 03/20/19 22:00 03/22/19 06:31 Novolog Vial Sliding Scale - SQ Not Given ACHS MONIK Protocol Nifedipine 30 mg 03/20/19 22:00 03/21/19 21:09 Procardia Xl - PO 30 mg HS MONIK Administration Polyethylene Glycol 17 gm 03/21/19 10:00 03/22/19 09:57 Miralax (For Daily Use) - PO Not Given DAILY [facility] Torsemide 100 mg 03/21/19 10:00 03/22/19 09:57 Demadex - PO 100 mg DAILY MONIK Administration Vital Signs Period Temp Pulse Resp BP Sys/Salas Pulse Ox Last 24 Hr 97.6 F-100 F 51-56 18-22 110-131/45-58 97 Constitutional: Yes: Well Nourished, No Distress, Calm Eyes: Yes: Conjunctiva Clear, EOM Intact HENT: Yes: Atraumatic, Normocephalic Neck: Yes: Supple, Trachea Midline Respiratory: Yes: Regular, CTA Bilaterally Gastrointestinal: Yes: Normal Bowel Sounds, Soft Cardiovascular: Yes: Regular Rate and Rhythm JVD: No Carotid Bruit: No PMI: Non-Displaced Heart Sounds: Yes: S1, S2 Extremities: No: Cold Edema: No Integumentary: No: Jaundice Neurological: Yes: Alert, Oriented Psychiatric: No: Agitated CBC, BMP 03/22/19 05:30 03/22/19 05:30 EKG: sinus, wenckebach, low voltage echo 03/2019 mod conc LVH, nl LV function, impaired relaxation, RV mildly dilated , mildly reduced RV funciton, mod dilated RA, mod MAC, mild MR, mod TR, D shaped LV c/w pressure overload tele: sinus, artifact abnormal EKG, sinus elli, wenckebach - similar to prior EKGs since 2018 - tele benign - no history of dizziness, syncope acute on chronic diastolic HF, history of hypertensive heart disease - echo nl LV function with mildly reduced Rv function, dilated R heart and evidence of increased filling pressures - cont torsemide - HD per renal ESRD, hyperkalemia - manage per renal, s/p permacath - improved after HD DM - manage per primary HTN - cont current meds PAD - cont plavix dc tele
--- NOTE | 2019-03-22 14:32 | PN ---
Progress Note (short form) - Note Progress Note: Renal follow up for ESRD Seen and examined during dialysis BP marginal, 90's/50's. UF limited to 2L. Catheter with good flow. No heparin used. Pt reports feeling very fatigued and weak no sob but has a cough no cramping Vital Signs Temperature 97.8 F 03/22/19 10:00 Pulse Rate 78 03/22/19 13:55 Respiratory Rate 18 03/22/19 13:55 Blood Pressure 96/54 L 03/22/19 13:55 O2 Sat by Pulse Oximetry (%) 96 03/22/19 09:00 Intake & Output 03/19/19 03/20/19 03/21/19 03/22/19 23:59 23:59 23:59 23:59 Intake Total 400 1250 650 450 Output Total 2500 1550 Balance -2100 -300 650 450 Weight 90.718 kg 88.904 kg NAD RRR CTA no LE edmea right IJ tunneled hD catheter CBC, BMP 03/22/19 05:30 03/22/19 05:30 Current Medications Acetaminophen (Tylenol -) 650 mg PO Q6H PRN PRN Reason: PAIN LEVEL 1-5 Last Admin: 03/21/19 21:09 Dose: 650 mg Calcium Acetate (Phoslo -) 667 mg PO TIDCM [facility] Last Admin: 03/22/19 12:00 Dose: Not Given Clopidogrel Bisulfate (Plavix -) 75 mg PO DAILY [facility] Last Admin: 03/22/19 09:57 Dose: 75 mg Sodium Chloride (Normal Saline -) 250 mls @ 3,000 mls/hr IV PRN PRN PRN Reason: Hypotension during Dialysis Stop: 03/23/19 09:47 Insulin Aspart (Novolog Vial Sliding Scale -) 1 vial SQ ACHS [facility]; Protocol Last Admin: 03/22/19 11:31 Dose: Not Given Nifedipine (Procardia Xl -) 30 mg PO HS [facility] Last Admin: 03/21/19 21:09 Dose: 30 mg Polyethylene Glycol (Miralax (For Daily Use) -) 17 gm PO DAILY [facility] Last Admin: 03/22/19 09:57 Dose: Not Given Torsemide (Demadex -) 100 mg PO DAILY [facility] Last Admin: 03/22/19 09:57 Dose: 100 mg 58 year old male with pmhx of esrd, TTS schedule, htn, DM, who presents with cough and congestion and found to have very high BUN and hyperkalemia. 1. Dialysis access recirculation 2. ESRD 3. Hyperkalemia 4. Anemia in CKD 5. Hypertesnion tolerating dialysis, UF limited by marginal BP Will check CXR to r/o PNA vs. bronchitis Will need new AVF placement as an outpatient. would monitor BP post dialysis before giving BP meds. Cm Torres DO
--- NOTE | 2019-03-22 14:38 | PN ---
Progress Note (short form) - Note Progress Note: ID CONSULT DICTATED URI R/O PNEUMONIA ? VIRAL ?INFLUENZA ESRD DM CHECK C/S, FLU/ RESP VIRUS SWABS EMPIRIC CEFTRIAXONE/VANCOMYCIN
[2019-03-22] MEDS ORDERED: VANCOMYCIN 1,000 MG in DEXTROSE 5%-WATER - 250 ML IVPB ONE (14:45)
--- NOTE | 2019-03-22 14:47 | CONS ---
INFECTIOUS DISEASE CONSULTATION DATE OF CONSULTATION: DATE OF DICTATION: 03/22/2019 A 58-year-old male who is evaluated for fever and respiratory tract illness. The patient reports a 3-4 day history of worsening congestion and cough associated with chills, night sweats, generalized arthralgias, and myalgias. He had presented to an urgent care center and was prescribed Zithromax. He reports taking 4 doses without significant improvement. He presented to the emergency room where he was noted to have a temperature of 100. Chest x-ray showed some increased markings bilaterally. He was empirically treated with antibiotics. At the present time, he reports feeling better. He still complains of generalized weakness and arthralgias/myalgias, especially of the left elbow. He reports cough with difficulty expectorating. No complaints of chest pain. Denies vomiting or diarrhea. He has a history of diabetic foot infections, however, none currently. Patient lives at home with his girlfriend. She is well, without respiratory tract symptoms. He is a nonsmoker. States he received influenza vaccine. No recent travel. PAST MEDICAL HISTORY: Positive for end-stage renal disease on hemodialysis, hypertension, diabetes mellitus, history of diabetic foot infections. PAST SURGICAL HISTORY: Status post AV fistula, right upper extremity; Shiley catheter, left chest; status post right transmetatarsal amputation. ALLERGIES: No known allergies. SYSTEMS REVIEW: Neurologic: No loss of consciousness, seizure activity, or focal weakness. Cardiac: Negative chest pain and palpitations. Respiratory: As per HPI. Gastrointestinal: Negative vomiting or diarrhea. Genitourinary: End-stage renal disease on hemodialysis. LABORATORY DATA: White count 6.6, hematocrit 25.9, platelets 139. Creatinine 13.3. Influenza swab pending. Blood cultures pending. Chest x-ray showed some increased markings bilaterally without focal consolidation. PHYSICAL EXAMINATION: General: He is awake. He is supine in bed. He is in no acute distress. His breathing is non-labored. Vital Signs: T-max 100; blood pressure 121/56; pulse 51, regular; respirations 18 per minute. HEENT: Sclerae anicteric. Heart: Sounds S1, S2. Lungs: Diminished breath sounds bilaterally. Abdomen: Soft and nontender. Extremities: Negative for edema. He is status post right transmetatarsal amputation which is completely healed. Chest: There is a Shiley present in the left upper chest. IMPRESSION: 1. Fever, upper respiratory tract infection; rule out pneumonia. 2. End-stage renal disease on hemodialysis. 3. Diabetes mellitus. Symptoms suggestive of viral URI. Await influenza swab. Obtain respiratory virus panel, sputum culture. Empiric antibiotic coverage with ceftriaxone 1 g IV piggyback daily and vancomycin 1 g IV piggyback stat dose. Further recommendations pending cultures. Will follow. Thank you for the kind referral. THALIA MCGHEE M.D. [id number]
[2019-03-22] MEDS ORDERED: DEXTROSE 5%-WATER - 50 ML IVPB ONE (15:54)
[2019-03-22] MEDS ORDERED: cefTRIAXone SODIUM 1 GM VIAL ONE (15:54)
[2019-03-22] MEDS: CEFTRIAXONE 1 GM in DEXTROSE 5%-WATER - 50 ML IVPB SCH (16:03)
[2019-03-23] MEDS: INSULIN SLIDING SCALE (NOVOLOG) 1 VIAL SQ SCH ×4 (06:13→21:45)
[2019-03-23 07:42] LABS: BASO % 0.9 % (0-2.0); EOS % 1.3 % (0-4.5); HEMATOCRIT 28.4 % (35.4-49); HEMOGLOBIN 9.4 GM/dL (11.7-16.9); LYMPH % 15.2 % (8-40); MCHC 33.2 g/dl (32.0-35.9); MEAN CELL VOLUME 90.3 fl (80-96); MEAN PLT VOLUME 8.5 fl (7.5-11.1); MONO % 17.3 % (3.8-10.2); NEUT % 65.3 % (42.8-82.8); PLATELET COUNT 150 K/MM3 (134-434); RBC 3.14 M/mm3 (4.00-5.60); RDW 16.3 % (11.9-15.9); WHITE BLOOD COUNT 6.8 K/mm3 (4.0-10.0)
[2019-03-23 08:08] LABS: ALBUMIN 2.6 g/dl (3.4-5.0); ALK PHOS 131 U/L (45-117); ANION GAP 8 MMOL/L (8-16); BILIRUBIN,TOTAL 0.4 mg/dL (0.2-1); BLOOD UREA NITROGEN 35.8 mg/dL (7-18); CHLORIDE 98 mmol/L (98-107); CO2 29 mmol/L (21-32); GLUCOSE,RANDOM 118 mg/dL (74-106); POTASSIUM 3.7 mmol/L (3.5-5.1); SGOT/AST 34 U/L (15-37); SGPT/ALT 18 U/L (13-61); SODIUM 135 mmol/L (136-145); TOT PROT 6.4 g/dl (6.4-8.2); URIC ACID 2.8 mg/dL (2.6-7.2)
[2019-03-23 08:18] LABS: CALCIUM 6.9 mg/dL (8.5-10.1); CREATININE 7.9 mg/dL (0.55-1.3)
[2019-03-23] MEDS ORDERED: cefTRIAXone SODIUM 1 GM VIAL ONE (09:03)
[2019-03-23] MEDS ORDERED: DEXTROSE 5%-WATER - 50 ML IVPB ONE (09:03)
[2019-03-23] MEDS: CEFTRIAXONE 1 GM in DEXTROSE 5%-WATER - 50 ML IVPB SCH (09:14)
[2019-03-23] MEDS: CALCIUM ACETATE 667 MG CAPSULE (FP) PO SCH ×3 (09:15→17:58)
[2019-03-23] MEDS: CLOPIDOGREL BISULFATE 75 MG TABLET (FP) PO SCH (09:15)
[2019-03-23] MEDS: TORSEMIDE 100 MG TABLET PO SCH (09:15)
[2019-03-23] MEDS: POLYETHYLENE GLYCOL 3350 119 GM BTL PO SCH (09:16)
--- NOTE | 2019-03-23 10:40 | PN ---
Progress Note, Physician Chief Complaint: no CP, SOB, wants to go home - Current Medication List Current Medications: Active Medications Acetaminophen (Tylenol -) 650 mg PO Q6H PRN PRN Reason: PAIN LEVEL 1-5 Last Admin: 03/21/19 21:09 Dose: 650 mg Calcium Acetate (Phoslo -) 667 mg PO TIDCM [facility] Last Admin: 03/23/19 09:15 Dose: 667 mg Clopidogrel Bisulfate (Plavix -) 75 mg PO DAILY [facility] Last Admin: 03/23/19 09:15 Dose: 75 mg Ceftriaxone Sodium 1 gm/ (Dextrose) 50 mls @ 200 mls/hr IVPB DAILY [facility]; Protocol Last Admin: 03/23/19 09:14 Dose: 200 mls/hr Insulin Aspart (Novolog Vial Sliding Scale -) 1 vial SQ ACHS [facility]; Protocol Last Admin: 03/23/19 06:13 Dose: Not Given Polyethylene Glycol (Miralax (For Daily Use) -) 17 gm PO DAILY [facility] Last Admin: 03/23/19 09:16 Dose: 17 gm Torsemide (Demadex -) 100 mg PO DAILY [facility] Last Admin: 03/23/19 09:15 Dose: 100 mg - Objective Vital Signs: Vital Signs Temperature 98.3 F 03/23/19 06:00 Pulse Rate 54 L 03/23/19 06:00 Respiratory Rate 18 03/23/19 06:00 Blood Pressure 111/41 L 03/23/19 06:00 O2 Sat by Pulse Oximetry (%) 96 03/22/19 21:00 Constitutional: Yes: Calm Cardiovascular: Yes: Regular Rate and Rhythm Respiratory: Yes: CTA Bilaterally Gastrointestinal: Yes: Soft Edema: No Neurological: Yes: Alert, Oriented Psychiatric: Yes: WNL Labs: CBC, BMP 03/23/19 06:59 03/23/19 06:59 Assessment/Plan EKG: sinus, wenckebach, low voltage echo 03/2019 mod conc LVH, nl LV function, impaired relaxation, RV mildly dilated , mildly reduced RV funciton, mod dilated RA, mod MAC, mild MR, mod TR, D shaped LV c/w pressure overload tele: sinus, artifact abnormal EKG, sinus elli, wenckebach: - similar to prior EKGs since 2018 - tele benign - no history of dizziness, syncope acute on chronic diastolic HF, history of hypertensive heart disease: - echo nl LV function with mildly reduced Rv function, dilated R heart and evidence of increased filling pressures - cont torsemide - HD per renal ESRD, hyperkalemia: - manage per renal, s/p permacath - improved after HD DM: - manage per primary HTN: - cont current meds PAD: - cont plavix dc tele
--- NOTE | 2019-03-23 12:49 | PN ---
Progress Note, Physician Chief Complaint: feels a little better, less body aches less elbow pain afebrile; borderline hypoTA (BP meds held) wants to go home - Current Medication List Current Medications: Active Medications Acetaminophen (Tylenol -) 650 mg PO Q6H PRN PRN Reason: PAIN LEVEL 1-5 Last Admin: 03/21/19 21:09 Dose: 650 mg Calcium Acetate (Phoslo -) 667 mg PO [facility]CM [facility] Last Admin: 03/23/19 11:57 Dose: 667 mg Clopidogrel Bisulfate (Plavix -) 75 mg PO DAILY [facility] Last Admin: 03/23/19 09:15 Dose: 75 mg Ceftriaxone Sodium 1 gm/ (Dextrose) 50 mls @ 200 mls/hr IVPB [facility]ILY [facility]; Protocol Last Admin: 03/23/19 09:14 Dose: 200 mls/hr Insulin Aspart (Novolog Vial Sliding Scale -) 1 vial SQ ACHS [facility]; Protocol Last Admin: 03/23/19 11:49 Dose: Not Given Polyethylene Glycol (Miralax (For Daily Use) -) 17 gm PO DAILY [facility] Last Admin: 03/23/19 09:16 Dose: 17 gm Torsemide (Demadex -) 100 mg PO DAILY [facility] Last Admin: 03/23/19 09:15 Dose: 100 mg - Objective Vital Signs: Vital Signs Temperature 97.8 F 03/23/19 10:00 Pulse Rate 52 L 03/23/19 10:00 Respiratory Rate 18 03/23/19 10:00 Blood Pressure 121/61 03/23/19 10:00 O2 Sat by Pulse Oximetry (%) 95 03/23/19 09:00 Constitutional: Yes: No Distress, Calm Eyes: Yes: Conjunctiva Clear HENT: Yes: Atraumatic Neck: Yes: Supple Cardiovascular: Yes: Regular Rate and Rhythm Respiratory: Yes: CTA Bilaterally Gastrointestinal: Yes: Soft. No: Tenderness Genitourinary: No: Hematuria Musculoskeletal: No: Joint Stiffness, Joint Swelling Extremities: No: Cold, Cool, Cyanosis Edema: No Integumentary: No: Rash, Venous Stasis Changes Neurological: Yes: WNL, Alert, Oriented ...Motor Strength: WNL Psychiatric: Yes: WNL, Alert, Oriented. No: Agitated, Suicidal Ideation Labs: CBC, BMP 03/23/19 06:59 03/23/19 06:59 - ....Imaging Other: Report Reviewed Assessment/Plan 58 y/o M hx of ESRD on HD (, , Tue). HTN, Diabetes, presents to the ED with 5 days of cough and congestion. on po Z-brad, still with cough and SOB, also constipation and abd pain. HyperK, AVB; ARF/CRF fluid OL, s/p permacath low grade fever ATB per ID L elbow pain bursitis? rheum eval cardiology and renal f/u; f/u labs and EKG dialysis per renal falls pfx flu test still pending d/w pt and staff
--- NOTE | 2019-03-23 16:48 | PN ---
Progress Note, Physician History of Present Illness: FEELING BETTER AFEBRILE WBC WNL LESS BODYACHE, L ELBOW PAIN NO C/O DYSPNEA/ COUGH NO C/O FEVER/ CHILLS BC (-) - Current Medication List Current Medications: Active Medications Acetaminophen (Tylenol -) 650 mg PO Q6H PRN PRN Reason: PAIN LEVEL 1-5 Last Admin: 03/21/19 21:09 Dose: 650 mg Calcium Acetate (Phoslo -) 667 mg PO TIDCM [facility] Last Admin: 03/23/19 11:57 Dose: 667 mg Clopidogrel Bisulfate (Plavix -) 75 mg PO DAILY [facility] Last Admin: 03/23/19 09:15 Dose: 75 mg Ceftriaxone Sodium 1 gm/ (Dextrose) 50 mls @ 200 mls/hr IVPB DAILY [facility]; Protocol Last Admin: 03/23/19 09:14 Dose: 200 mls/hr Insulin Aspart (Novolog Vial Sliding Scale -) 1 vial SQ ACHS [facility]; Protocol Last Admin: 03/23/19 11:49 Dose: Not Given Polyethylene Glycol (Miralax (For Daily Use) -) 17 gm PO DAILY [facility] Last Admin: 03/23/19 09:16 Dose: 17 gm Torsemide (Demadex -) 100 mg PO DAILY [facility] Last Admin: 03/23/19 09:15 Dose: 100 mg - Objective Vital Signs: Vital Signs Temperature 98.2 F 03/23/19 14:33 Pulse Rate 51 L 03/23/19 14:33 Respiratory Rate 18 03/23/19 14:33 Blood Pressure 122/51 L 03/23/19 14:33 O2 Sat by Pulse Oximetry (%) 95 03/23/19 09:00 Constitutional: Yes: No Distress Eyes: Yes: Conjunctiva Clear Cardiovascular: Yes: Regular Rate and Rhythm, S1, S2 Respiratory: Yes: Other (FEW CREPITATIONS, BASES BILATERALLY) Gastrointestinal: Yes: Normal Bowel Sounds, Soft. No: Tenderness Edema: LLE: 1+, RLE: 1+ Labs: CBC, BMP 03/23/19 06:59 03/23/19 06:59 Assessment/Plan URI ? VIRAL SYNDROME POSSIBLE PNEUMONIA ESRD DM CONTINUE CEFTRIAXONE IF STABLE PO CEFTIN 250MG BID X 7D
[2019-03-23] MEDS ORDERED: SODIUM CHLORIDE 250 ML IV PRN ×2 (17:15→17:17)
--- NOTE | 2019-03-23 17:15 | PN ---
Progress Note, Physician History of Present Illness: Pt seen and examined at bedside. He is awake and alert. He denies shortness of breath or cough. - Current Medication List Current Medications: Active Medications Acetaminophen (Tylenol -) 650 mg PO Q6H PRN PRN Reason: PAIN LEVEL 1-5 Last Admin: 03/21/19 21:09 Dose: 650 mg Calcium Acetate (Phoslo -) 667 mg PO TIDCM [facility] Last Admin: 03/23/19 11:57 Dose: 667 mg Clopidogrel Bisulfate (Plavix -) 75 mg PO DAILY [facility] Last Admin: 03/23/19 09:15 Dose: 75 mg Ceftriaxone Sodium 1 gm/ (Dextrose) 50 mls @ 200 mls/hr IVPB DAILY [facility]; Protocol Last Admin: 03/23/19 09:14 Dose: 200 mls/hr Insulin Aspart (Novolog Vial Sliding Scale -) 1 vial SQ ACHS [facility]; Protocol Last Admin: 03/23/19 11:49 Dose: Not Given Polyethylene Glycol (Miralax (For Daily Use) -) 17 gm PO DAILY [facility] Last Admin: 03/23/19 09:16 Dose: 17 gm Torsemide (Demadex -) 100 mg PO DAILY [facility] Last Admin: 03/23/19 09:15 Dose: 100 mg - Objective Vital Signs: Vital Signs Temperature 98.2 F 03/23/19 14:33 Pulse Rate 51 L 03/23/19 14:33 Respiratory Rate 18 03/23/19 14:33 Blood Pressure 122/51 L 03/23/19 14:33 O2 Sat by Pulse Oximetry (%) 95 03/23/19 09:00 Constitutional: Yes: Calm Eyes: Yes: Conjunctiva Clear HENT: Yes: Atraumatic Neck: Yes: Supple Cardiovascular: Yes: S1, S2 Respiratory: Yes: CTA Bilaterally Gastrointestinal: Yes: Normal Bowel Sounds, Soft Genitourinary: Yes: WNL Musculoskeletal: Yes: WNL Edema: No Integumentary: Yes: WNL Neurological: Yes: Oriented Psychiatric: Yes: Oriented Labs: CBC, BMP 03/23/19 06:59 03/23/19 06:59 Problem List - Problems (1) Acute hyperkalemia Code(s): E87.5 - HYPERKALEMIA (2) Anemia in ESRD (end-stage renal disease) Code(s): N18.6 - END STAGE RENAL DISEASE; D63.1 - ANEMIA IN CHRONIC KIDNEY DISEASE Assessment/Plan Current Medications Generic Name Dose Route Start Last Admin Trade Name Gunnar PRN Reason Stop Dose Admin Acetaminophen 650 mg 03/21/19 20:21 03/21/19 21:09 Tylenol - PO 650 mg Q6H PRN Administration PAIN LEVEL 1-5 Calcium Acetate 667 mg 03/21/19 08:00 03/23/19 11:57 Phoslo - PO 667 mg TIDCM [facility] Administration Clopidogrel Bisulfate 75 mg 03/21/19 10:00 03/23/19 09:15 Plavix - PO 75 mg DAILY [facility] Administration Ceftriaxone Sodium 1 gm/ 50 mls @ 200 mls/hr 03/22/19 14:45 03/23/19 09:14 Dextrose IVPB 200 mls/hr DAILY [facility] Administration Protocol Insulin Aspart 1 vial 03/20/19 22:00 03/23/19 11:49 Novolog Vial Sliding Scale - SQ Not Given ACHS [facility] Protocol Polyethylene Glycol 17 gm 03/21/19 10:00 03/23/19 09:16 Miralax (For Daily Use) - PO 17 gm DAILY [facility] Administration Torsemide 100 mg 03/21/19 10:00 03/23/19 09:15 Demadex - PO 100 mg DAILY [facility] Administration Microbiology 03/22/19 09:43 Blood - Peripheral Venous Blood Culture - Preliminary NO GROWTH OBTAINED AFTER 24 HOURS, INCUBATION TO CONTINUE FOR 4 DAYS. 03/22/19 09:31 Blood - Peripheral Venous Blood Culture - Preliminary NO GROWTH OBTAINED AFTER 24 HOURS, INCUBATION TO CONTINUE FOR 4 DAYS. Laboratory Tests 03/19/19 03/20/19 16:33 06:22 BUN 132.1 H* 111.4 H* Creatinine 19.8 H* 17.6 H* 1. Hyperkalemia 2. AVF recirculation 3. ESRD on HD 4. Hypertension 5. s/p permacath Plan - HD tomorrow - renal diet - follow cultures - abx per primary team - monitor bp
[2019-03-24] MEDS: INSULIN SLIDING SCALE (NOVOLOG) 1 VIAL SQ SCH ×4 (06:08→21:02)
[2019-03-24] MEDS ORDERED: DEXTROSE 5%-WATER - 50 ML IVPB ONE (08:08)
[2019-03-24] MEDS ORDERED: cefTRIAXone SODIUM 1 GM VIAL ONE (08:08)
--- NOTE | 2019-03-24 08:42 | PN ---
Progress Note, Physician History of Present Illness: No Cv complaints Wants to get HD Tele: NSR - Current Medication List Current Medications: Active Medications Acetaminophen (Tylenol -) 650 mg PO Q6H PRN PRN Reason: PAIN LEVEL 1-5 Last Admin: 03/21/19 21:09 Dose: 650 mg Calcium Acetate (Phoslo -) 667 mg PO TIDCM [facility] Last Admin: 03/23/19 17:58 Dose: 667 mg Clopidogrel Bisulfate (Plavix -) 75 mg PO DAILY [facility] Last Admin: 03/23/19 09:15 Dose: 75 mg Epoetin Alexander (Procrit -) 10,000 unit IVPUSH ONCE ONE Stop: 03/24/19 17:18 Ceftriaxone Sodium 1 gm/ (Dextrose) 50 mls @ 200 mls/hr IVPB DAILY [facility]; Protocol Last Admin: 03/23/19 09:14 Dose: 200 mls/hr Sodium Chloride (Normal Saline -) 250 mls @ 3,000 mls/hr IV PRN PRN PRN Reason: Hypotension during Dialysis Stop: 03/24/19 17:15 Insulin Aspart (Novolog Vial Sliding Scale -) 1 vial SQ ACHS [facility]; Protocol Last Admin: 03/24/19 06:08 Dose: Not Given Polyethylene Glycol (Miralax (For Daily Use) -) 17 gm PO DAILY [facility] Last Admin: 03/23/19 09:16 Dose: 17 gm Torsemide (Demadex -) 100 mg PO DAILY [facility] Last Admin: 03/23/19 09:15 Dose: 100 mg - Objective Vital Signs: Vital Signs Temperature 97.7 F 03/24/19 06:00 Pulse Rate 51 L 03/24/19 06:00 Respiratory Rate 18 03/24/19 06:00 Blood Pressure 107/63 03/24/19 06:00 O2 Sat by Pulse Oximetry (%) 95 03/23/19 21:00 Constitutional: Yes: No Distress, Calm Cardiovascular: Yes: Regular Rate and Rhythm Respiratory: Yes: CTA Bilaterally Extremities: Yes: Other (Right forearm AVF: no thrill) Edema: No Labs: CBC, BMP 03/23/19 06:59 03/23/19 06:59 Assessment/Plan abnormal EKG, sinus elli, wenckebach: - As per Dr. Roa: similar to prior EKGs since 2018 - tele benign acute on chronic diastolic HF, history of hypertensive heart disease: - echo nl LV function with mildly reduced Rv function, dilated R heart and evidence of increased filling pressures - cont torsemide 100mg daily - HD per renal ESRD, hyperkalemia: - manage per renal, s/p permacath - improved after HD HTN: -BP stable and well controlled on diuretic only - cont current meds PAD: - cont plavix
--- NOTE | 2019-03-24 09:45 | PN ---
Progress Note, Physician Chief Complaint: some L elbow pain and and L hand tingling feeling weak but slightly better BP borderline low; held BP meds preHD - Current Medication List Current Medications: Active Medications Acetaminophen (Tylenol -) 650 mg PO Q6H PRN PRN Reason: PAIN LEVEL 1-5 Last Admin: 03/21/19 21:09 Dose: 650 mg Calcium Acetate (Phoslo -) 667 mg PO TIDCM [facility] Last Admin: 03/23/19 17:58 Dose: 667 mg Clopidogrel Bisulfate (Plavix -) 75 mg PO DAILY [facility] Last Admin: 03/23/19 09:15 Dose: 75 mg Epoetin Alexander (Procrit -) 10,000 unit IVPUSH ONCE ONE Stop: 03/24/19 17:18 Ceftriaxone Sodium 1 gm/ (Dextrose) 50 mls @ 200 mls/hr IVPB DAILY [facility]; Protocol Last Admin: 03/23/19 09:14 Dose: 200 mls/hr Sodium Chloride (Normal Saline -) 250 mls @ 3,000 mls/hr IV PRN PRN PRN Reason: Hypotension during Dialysis Stop: 03/24/19 17:15 Insulin Aspart (Novolog Vial Sliding Scale -) 1 vial SQ ACHS [facility]; Protocol Last Admin: 03/24/19 06:08 Dose: Not Given Polyethylene Glycol (Miralax (For Daily Use) -) 17 gm PO DAILY [facility] Last Admin: 03/23/19 09:16 Dose: 17 gm Torsemide (Demadex -) 100 mg PO DAILY [facility] Last Admin: 03/23/19 09:15 Dose: 100 mg - Objective Vital Signs: Vital Signs Temperature 97.7 F 03/24/19 06:00 Pulse Rate 51 L 03/24/19 06:00 Respiratory Rate 18 03/24/19 06:00 Blood Pressure 107/63 03/24/19 06:00 O2 Sat by Pulse Oximetry (%) 95 03/23/19 21:00 Constitutional: Yes: No Distress, Calm Eyes: Yes: Conjunctiva Clear HENT: Yes: Atraumatic Neck: Yes: Supple Cardiovascular: Yes: Regular Rate and Rhythm Respiratory: Yes: CTA Bilaterally Gastrointestinal: Yes: Soft. No: Tenderness Musculoskeletal: No: Joint Stiffness, Joint Swelling Extremities: No: Calf Tenderness, Cold, Cool Edema: No Integumentary: No: Rash, Venous Stasis Changes Neurological: Yes: WNL, Alert, Oriented ...Motor Strength: WNL Psychiatric: Yes: WNL, Alert, Oriented. No: Agitated, Suicidal Ideation Labs: CBC, BMP 03/23/19 06:59 03/23/19 06:59 - ....Imaging Other: Report Reviewed Assessment/Plan 58 y/o M hx of ESRD on HD (, , Tue). HTN, Diabetes, presents to the ED with 5 days of cough and congestion. on po Z-brad, still with cough and SOB, also constipation and abd pain. HyperK, AVB; ARF/CRF fluid OL, s/p permacath low grade fever ATB per ID L elbow pain better, d/w pt to have rheum eval outpt L hand numbness neurology eval cardiology and renal f/u; f/u labs and EKG dialysis per renal; hold BP meds falls pfx flu test reordered d/w pt and staff
[2019-03-24] MEDS: CALCIUM ACETATE 667 MG CAPSULE (FP) PO SCH ×3 (11:05→17:32)
[2019-03-24] MEDS: TORSEMIDE 100 MG TABLET PO SCH (11:05)
[2019-03-24] MEDS: POLYETHYLENE GLYCOL 3350 119 GM BTL PO SCH (11:05)
[2019-03-24] MEDS: CEFTRIAXONE 1 GM in DEXTROSE 5%-WATER - 50 ML IVPB SCH ×2 (11:06→15:40)
[2019-03-24] MEDS: CLOPIDOGREL BISULFATE 75 MG TABLET (FP) PO SCH ×2 (11:06→17:32)
[2019-03-24] MEDS ORDERED: EPOETIN ALFA-EPBX 10,000 UNIT/ML VIAL IVPUSH ONE (11:45)
[2019-03-24 13:03] LABS: HEMATOCRIT 28.8 % (35.4-49); HEMOGLOBIN 9.6 GM/dL (11.7-16.9); MCH 30.1 pg (25.7-33.7); MCHC 33.2 g/dl (32.0-35.9); MEAN CELL VOLUME 90.5 fl (80-96); MEAN PLT VOLUME 8.2 fl (7.5-11.1); PLATELET COUNT 157 K/MM3 (134-434); RBC 3.19 M/mm3 (4.00-5.60); RDW 16.1 % (11.9-15.9); WHITE BLOOD COUNT 6.3 K/mm3 (4.0-10.0)
[2019-03-24 13:41] LABS: BLOOD UREA NITROGEN 51.1 mg/dL (7-18)
[2019-03-24 13:48] LABS: CALCIUM 6.9 mg/dL (8.5-10.1)
[2019-03-24] MEDS ORDERED: CALCIUM GLUCONATE 10% - 1,000 MG/10 ML VIAL IVPB ONE (16:39)
--- NOTE | 2019-03-24 16:43 | PN ---
Progress Note, Physician History of Present Illness: Pt seen and examined at bedside. He is tolerating HD. He denies fevers or chills. - Current Medication List Current Medications: Active Medications Acetaminophen (Tylenol -) 650 mg PO Q6H PRN PRN Reason: PAIN LEVEL 1-5 Last Admin: 03/21/19 21:09 Dose: 650 mg Calcium Acetate (Phoslo -) 667 mg PO TIDCM [facility] Last Admin: 03/24/19 12:18 Dose: Not Given Calcium Gluconate (Calcium Gluconate 10% -) 1,000 mg IVPB ONCE ONE Stop: 03/24/19 16:40 Clopidogrel Bisulfate (Plavix -) 75 mg PO DAILY [facility] Last Admin: 03/24/19 11:06 Dose: Not Given Ceftriaxone Sodium 1 gm/ (Dextrose) 50 mls @ 200 mls/hr IVPB DAILY [facility]; Protocol Last Admin: 03/24/19 11:06 Dose: Not Given Sodium Chloride (Normal Saline -) 250 mls @ 3,000 mls/hr IV PRN PRN PRN Reason: Hypotension during Dialysis Stop: 03/24/19 17:15 Insulin Aspart (Novolog Vial Sliding Scale -) 1 vial SQ ACHS [facility]; Protocol Last Admin: 03/24/19 12:17 Dose: Not Given Polyethylene Glycol (Miralax (For Daily Use) -) 17 gm PO DAILY [facility] Last Admin: 03/24/19 11:05 Dose: 17 gm Torsemide (Demadex -) 100 mg PO DAILY [facility] Last Admin: 03/24/19 11:05 Dose: Not Given - Objective Vital Signs: Vital Signs Temperature 97.7 F 03/24/19 14:00 Pulse Rate 55 L 03/24/19 16:05 Respiratory Rate 18 03/24/19 16:05 Blood Pressure 116/65 03/24/19 16:05 O2 Sat by Pulse Oximetry (%) 95 03/23/19 21:00 Constitutional: Yes: Calm Eyes: Yes: Conjunctiva Clear HENT: Yes: Atraumatic Neck: Yes: Supple Cardiovascular: Yes: S1, S2 Respiratory: Yes: CTA Bilaterally Gastrointestinal: Yes: Soft Genitourinary: Yes: WNL Musculoskeletal: Yes: WNL Edema: No Neurological: Yes: Oriented Psychiatric: Yes: Oriented Labs: CBC, BMP 03/24/19 12:30 03/24/19 12:30 Problem List - Problems (1) Acute hyperkalemia Code(s): E87.5 - HYPERKALEMIA (2) Anemia in ESRD (end-stage renal disease) Code(s): N18.6 - END STAGE RENAL DISEASE; D63.1 - ANEMIA IN CHRONIC KIDNEY DISEASE Assessment/Plan Current Medications Generic Name Dose Route Start Last Admin Trade Name Freq PRN Reason Stop Dose Admin Acetaminophen 650 mg 03/21/19 20:21 03/21/19 21:09 Tylenol - PO 650 mg Q6H PRN Administration PAIN LEVEL 1-5 Calcium Acetate 667 mg 03/21/19 08:00 03/24/19 12:18 Phoslo - PO Not Given TIDCM [facility] Calcium Carbonate/Cholecalciferol 2 tab 03/24/19 16:45 Os-Frankie 500+D - PO DAILY [facility] Calcium Gluconate 1,000 mg 03/24/19 16:39 Calcium Gluconate 10% - IVPB 03/24/19 16:40 ONCE ONE Clopidogrel Bisulfate 75 mg 03/21/19 10:00 03/24/19 11:06 Plavix - PO Not Given DAILY [facility] Ceftriaxone Sodium 1 gm/ 50 mls @ 200 mls/hr 03/22/19 14:45 03/24/19 11:06 Dextrose IVPB Not Given DAILY [facility] Protocol Sodium Chloride 250 mls @ 3,000 mls/hr 03/23/19 17:15 Normal Saline - IV 03/24/19 17:15 PRN PRN Hypotension during Dialysis Insulin Aspart 1 vial 03/20/19 22:00 03/24/19 12:17 Novolog Vial Sliding Scale - SQ Not Given ACHS [facility] Protocol Polyethylene Glycol 17 gm 03/21/19 10:00 03/24/19 11:05 Miralax (For Daily Use) - PO 17 gm DAILY [facility] Administration Torsemide 100 mg 03/21/19 10:00 03/24/19 11:05 Demadex - PO Not Given DAILY [facility] 1. Hyperkalemia 2. AVF recirculation 3. ESRD on HD 4. Hypertension 5. s/p permacath 6. hypocalcemia Plan - HD today - replace calcium - check cmp and phos tomorrow - renal diet - follow cultures - abx per primary team - monitor bp
[2019-03-24] MEDS: CALCIUM 500MG/VIT-D 200 UNITS COMBO TABLET (FP) PO SCH (17:32)
--- NOTE | 2019-03-24 18:00 | CON.NEURO ---
Consult Consult Specialty:: Stan Referred by:: PCP - History of Present Illness History of Present Illness: For Dr Sean Brooks This is a 58-year-old right-handed -[place] man with multiple medical problem including coronary artery disease, questionable neuropathy, diabetes, hypertension end-stage renal disease on hemodialysis patient was admitted 4 days ago with a chief complaint of cough and congestion patient had an insertion of a permacath on the left subclavian vessel. According to the patient since that insertion patient has been getting increasing difficulty with the left elbow ulnar nerve claims that he has numbness and tingling radiating to digits 4 and 5. Patient denies any previous trauma patient with occasional numbness and tingling in the feet. I was leaving the room when the patient started complaining of difficulty with the left I that has been gone on for quite a while patient claims no headache no difficulty with jaw claudication no double vision. No symptoms on the right eye. - History Source History Provided By: Patient Limitations to Obtaining History: No Limitations - Past Medical History Cardio/Vascular: Yes: HTN Renal/: Yes: Renal Failure, Hemodialysis (on maintenance HD 2/2 hypertensive nephrosclerosis since 2013; on transplant list @ [facility]) Infectious Disease: Yes: Other Musculoskeletal: Yes: Other (remote hx of L foot fracture/sports trauma ) Endocrine: Yes: Diabetes Mellitus - Past Surgical History Past Surgical History: Yes: Amputation (TMA on 08/10, Revision on 08/21) - Alcohol/Substance Use Hx Alcohol Use: No History of Substance Use: reports: None - Smoking History Smoking history: Never smoked Have you smoked in the past 12 months: No Aproximately how many cigarettes per day: 0 - Social History Usual Living Arrangement: With Significant Other ADL: Independent Occupation: not working History of Recent Travel: Yes ([facility]) Home Medications - Allergies Allergies/Adverse Reactions: Allergies Allergy/AdvReac Type Severity Reaction Status Date / Time No Known Drug Allergies Allergy Verified 03/19/19 13:24 - Home Medications Home Medications: Ambulatory Orders Torsemide 100 mg PO DAILY 07/21/16 Calcium Acetate [Phoslo -] 667 mg PO TIDCM 08/09/16 Insulin (Levemir) [Levemir Flexpen -] 6 units SQ HS PRN 08/09/16 Clopidogrel Bisulfate [Plavix] 75 mg PO DAILY 03/21/18 Nifedipine ER [Procardia XL -] 30 mg PO HS 12/21/18 Acetaminophen [Tylenol .Regular Strength -] 650 mg PO Q6H PRN tablet 03/24/19 Cefuroxime Axetil [Ceftin -] 250 mg PO BID #14 tablet 03/24/19 Polyethylene Glycol 3350 [Miralax 119 gm Btl -] 17 gm PO DAILY bottle 03/24/19 Family Medical History Family History: Unremarkable Review of Systems - Review of Systems Constitutional: reports: No Symptoms Eyes: reports: Blurred Vision Neurological: reports: Incoordination, Numbness, Parasthesia Physical Exam-Neuro Vital Signs: Vital Signs Temperature 97.7 F 03/24/19 14:00 Pulse Rate 55 L 03/24/19 16:05 Respiratory Rate 18 03/24/19 16:05 Blood Pressure 116/65 03/24/19 16:05 O2 Sat by Pulse Oximetry (%) 96 03/24/19 09:00 Constitutional: Yes: Well Nourished Neck: Yes: WNL Cardiovascular: Yes: WNL Labs: CBC, BMP 03/24/19 12:30 03/24/19 12:30 - Neuro Exam Level Of Consciousness: Yes: Oriented to Person, Oriented to Place, Oriented to Time Eyes: Yes: PERRLA Speech: WNL Dominant Hand: Right Cranial Nerves II-XII Intact: Yes Gag: Present DTR's: 0 Left Bicep, 0 Right Bicep, 0 Left Tricep, 0 Right Tricep Response to light touch: Abnormal Response to pain prick: Abnormal Response to temperature: Abnormal Motor Strength: 3/5: Left Arm, Right Arm, Left Leg, Right Leg Gait: Deferred Problem List - Problems (1) Arm paresthesia, left Code(s): R20.2 - PARESTHESIA OF SKIN Assessment/Plan it's difficult to acertainany kind of plexopathy without thorough neurological examination Patient claims that the arm is better Neurological differential diagnoses #1 questionable left medial cord brachial plexopathy #2 blurry vision #3 neuropathy most probably associated with diabetes and uremia 1. CAT scan of the head with no contrast. 2. ESR C-reactive protein. 3. CAT scan of the cervical spine. 4. B complex vitamin. 6. Follow-up with the production tool engineer. 7. Will need nerve conduction testing electromyography as an outpatient. Ac Pierce M.D., MSc [facility] [address] [place] [address] Office
[2019-03-24] MEDS ORDERED: INSULIN (NOVOLOG) ASPART 100 UNITS/ML 10ML VIAL ONE (21:01)
[2019-03-25] MEDS: INSULIN SLIDING SCALE (NOVOLOG) 1 VIAL SQ SCH ×2 (06:33→10:00)
[2019-03-25 07:37] LABS: ALBUMIN 2.5 g/dl (3.4-5.0); BILIRUBIN,TOTAL 0.5 mg/dL (0.2-1); BLOOD UREA NITROGEN 24.4 mg/dL (7-18); CALCIUM 7.5 mg/dL (8.5-10.1); CREATININE 6.9 mg/dL (0.55-1.3); PHOSPHOROUS 4.4 mg/dL (2.5-4.9); POTASSIUM 3.8 mmol/L (3.5-5.1); TOT PROT 6.6 g/dl (6.4-8.2)
[2019-03-25] MEDS: CALCIUM ACETATE 667 MG CAPSULE (FP) PO SCH (08:46)
--- NOTE | 2019-03-25 08:57 | DS ---
Physical Examination Vital Signs: Vital Signs Temperature 99.1 F 03/25/19 06:00 Pulse Rate 51 L 03/25/19 06:00 Respiratory Rate 18 03/25/19 06:00 Blood Pressure 147/59 L 03/25/19 06:00 O2 Sat by Pulse Oximetry (%) 96 03/24/19 21:00 Findings/Remarks: BP better feels better wants to go home; FLU negative ; restart nifedipine XL 30 mg/ d (hold minoxidil) head CT sinusitits; on po ATB; f/u ENT outpt neck CT C5-6 mod stenosis will need neurology f/.u, EMG and possible neurosurgery eval outpt; 2.3 cm thyroid nodule needs outpt eval thyroid US and endocrine eval SANDRA+ rheum eval outpt cleared by cardio for DC home d/w dr Cano, f/u outpt d/w renal OK DC home, needs HD per renal and f/u vascular surgery L permacath and AVF management d/w pt the above scripts ordered as needed Constitutional: Yes: No Distress, Calm Eyes: Yes: Conjunctiva Clear HENT: Yes: Atraumatic Neck: Yes: Supple Cardiovascular: Yes: Regular Rate and Rhythm Respiratory: Yes: CTA Bilaterally Gastrointestinal: Yes: Soft. No: Tenderness Renal/: No: Hematuria Musculoskeletal: No: Joint Stiffness, Joint Swelling Extremities: No: Cold, Cool Edema: No Integumentary: No: Rash, Venous Stasis Changes Neurological: Yes: Alert, Oriented ...Motor Strength: WNL Psychiatric: Yes: Alert, Oriented. No: Agitated, Suicidal Ideation Labs: CBC, BMP 03/24/19 12:30 03/25/19 05:05 Discharge Summary Problems reviewed: Yes Reason For Visit: HYPERKALEMIA Current Active Problems Arm paresthesia, left (Acute) Dialysis AV fistula malfunction (Acute) Hyperkalemia, diminished renal excretion (Acute) ESRD (end stage renal disease) (Chronic) Condition: Improved - Instructions Diet, Activity, Other Instructions: f/u PCP cardiology in 1-2 weeks f/u rheumatology and neurology outpt dialysis per renal f/u vascular surgery for dialysis access ENT / sinusitis f/u endocrine eval and thyroid US for thyroid nodule NS eval for Cspine stenosis RTER if worse or recurrent c/o take meds as prescribed; po ATB x 1 week; nifedipine XL daily d/w pt Referrals: Mat Garrett MD [Primary Care Provider] - Simon Chavez MD [Staff Physician] - Brody Dueñas MD [Staff Physician] - Lee Araiza DO [Staff Physician] - Cm Torres MD [Staff Physician] - Ac Pierce MD [Staff Physician] - Camila Ospina MD [Staff Physician] - Erik Chaney MD [Staff Physician] - Antony Roth MD [Staff Physician] - Disposition: VNS/HOME HEALTH CARE - Home Medications Comprehensive Discharge Medication List: Ambulatory Orders Torsemide 100 mg PO DAILY 07/21/16 Calcium Acetate [Phoslo -] 667 mg PO TIDCM 08/09/16 Insulin (Levemir) [Levemir Flexpen -] 6 units SQ HS PRN 08/09/16 Clopidogrel Bisulfate [Plavix] 75 mg PO DAILY 03/21/18 Nifedipine ER [Procardia XL -] 30 mg PO HS 12/21/18 Acetaminophen [Tylenol .Regular Strength -] 650 mg PO Q6H PRN tablet 03/24/19 Cefuroxime Axetil [Ceftin -] 250 mg PO BID #14 tablet 03/24/19 Polyethylene Glycol 3350 [Miralax 119 gm Btl -] 17 gm PO DAILY bottle 03/24/19 Calcium 500Mg/Vit-D 200 Units [Os-Frankie 500+D -] 2 tab PO DAILY tab 03/25/19
[2019-03-25] MEDS: TORSEMIDE 100 MG TABLET PO SCH (09:46)
[2019-03-25] MEDS: CLOPIDOGREL BISULFATE 75 MG TABLET (FP) PO SCH (09:46)
[2019-03-25] MEDS: POLYETHYLENE GLYCOL 3350 119 GM BTL PO SCH (09:47)
[2019-03-25] MEDS: CEFTRIAXONE 1 GM in DEXTROSE 5%-WATER - 50 ML IVPB SCH (09:47)
[2019-03-25] MEDS: CALCIUM 500MG/VIT-D 200 UNITS COMBO TABLET (FP) PO SCH (09:47)
[2019-03-25] MEDS ORDERED: DEXTROSE 5%-WATER - 50 ML IVPB ONE (09:57)
[2019-03-25] MEDS ORDERED: cefTRIAXone SODIUM 1 GM VIAL ONE (09:57)
--- NOTE | 2019-03-25 09:58 | PN ---
Progress Note, Physician History of Present Illness: No CV complaints Feels well and want to go home - Current Medication List Current Medications: Active Medications Acetaminophen (Tylenol -) 650 mg PO Q6H PRN PRN Reason: PAIN LEVEL 1-5 Last Admin: 03/21/19 21:09 Dose: 650 mg Calcium Acetate (Phoslo -) 667 mg PO TIDCM [facility] Last Admin: 03/25/19 08:46 Dose: 667 mg Calcium Carbonate/Cholecalciferol (Os-Frankie 500+D -) 2 tab PO DAILY [facility] Last Admin: 03/25/19 09:47 Dose: 2 tab Clopidogrel Bisulfate (Plavix -) 75 mg PO DAILY [facility] Last Admin: 03/25/19 09:46 Dose: 75 mg Ceftriaxone Sodium 1 gm/ (Dextrose) 50 mls @ 200 mls/hr IVPB DAILY [facility]; Protocol Last Admin: 03/25/19 09:47 Dose: 200 mls/hr Insulin Aspart (Novolog Vial Sliding Scale -) 1 vial SQ ACHS [facility]; Protocol Last Admin: 03/25/19 06:33 Dose: Not Given Nifedipine (Procardia Xl -) 30 mg PO DAILY [facility] Polyethylene Glycol (Miralax (For Daily Use) -) 17 gm PO DAILY [facility] Last Admin: 03/25/19 09:47 Dose: 17 gm Torsemide (Demadex -) 100 mg PO DAILY [facility] Last Admin: 03/25/19 09:46 Dose: 100 mg - Objective Vital Signs: Vital Signs Temperature 99.1 F 03/25/19 06:00 Pulse Rate 51 L 03/25/19 06:00 Respiratory Rate 18 03/25/19 06:00 Blood Pressure 147/59 L 03/25/19 06:00 O2 Sat by Pulse Oximetry (%) 96 03/24/19 21:00 Constitutional: Yes: No Distress Cardiovascular: Yes: Regular Rate and Rhythm Respiratory: Yes: CTA Bilaterally Edema: No Labs: CBC, BMP 03/24/19 12:30 03/25/19 05:05 Assessment/Plan acute on chronic diastolic HF, history of hypertensive heart disease: - echo nl LV function with mildly reduced Rv function, dilated R heart and evidence of increased filling pressures - cont torsemide 100mg daily - HD per renal ESRD, hyperkalemia: - manage per renal, s/p permacath - improved after HD HTN: -BP stable and well controlled on diuretic only - cont current meds PAD: - cont plavix Will follow up with Dr. Dueñas as outpatient
[2019-03-25] MEDS ORDERED: NIFEdipine E.R. 30 MG TABLET PO SCH (10:00)
[2019-03-25 15:02] VITALS: BP 145/79; PULSE 60; TEMP 99
--- NOTE | 2019-04-02 19:39 | OP ---
DATE OF OPERATION: 03/20/2019 PREOPERATIVE DIAGNOSIS: Malfunctioning right arteriovenous fistula. POSTOPERATIVE DIAGNOSIS: Malfunctioning right arteriovenous fistula. PROCEDURE: Venogram, venoplasty, right arteriovenous fistula. Insertion of PermCath. SURGEON: Lee Rutherford MD. ANESTHESIA: Fractional. BLOOD LOSS: 50 mL. INDICATION: The patient is a 58-year-old male that comes in with a malfunctioning right AV fistula. Patient has been getting dialysis in dialysis unit. However, the fistula seems to be recirculating and the post hemodialysis values are not changing, so he was sent to the emergency room. Patient was seen and examined, and it was thought that he would need a venogram. It was explained to the patient that if the fistula could not be opened adequately and it seems like there is no change, that the patient would get a PermCath in order to be adequately dialyzed. Patient was consented for the procedure understanding all risks, benefits, and alternatives and taken to the operating room. DESCRIPTION OF PROCEDURE: Once in the operating room, he was laid on the operating table in a supine manner, and the area of the right arm was prepped and draped in a sterile surgical manner. We then went ahead and injected 10 mL of lidocaine 1% in the proximal cephalic vein below the antecubital fossa. We then went ahead and took our Micropuncture needle and punctured the right AV fistula. A Micropuncture wire was inserted, Micropuncture sheath was inserted, and a short 6-Indonesian sheath was inserted. 5000 units of IV heparin were administered to the patient. We then shot a venogram showing that the fistula was patent. We then went ahead and placed a 0.035 floppy guidewire down to the arterial anastomosis, and we went ahead and then brought our catheter down. We then shot our venogram by hand injection showing that the fistula was patent, and the anastomosis was patent, but the inflow artery was small, and we were wondering if this was an inflow issue. At this point, we placed our 0.035 floppy guidewire across the arterial anastomosis, and we used a 6 x 6 balloon and performed venoplasty of the arterial anastomosis. Completion venogram now shoed that the anastomosis was patent. There was still no thrill in the AV fistula. There was flow through the AV fistula, but you cannot hear a bruit, and you could feel a very faint thrill. At this point, we shot a venogram and we looked at the fistula downstream, and it was patent, but due to the fact that not much of a change was made, we decided that we should prep for a left IJ PermCath. At this point, we took a 4-0 Biosyn and a [id number] stitch was placed around the sheath, and the sheath was pulled. Area was then dried. Dermabond was placed on our puncture site for the right AV fistula venogram. Once completed, we went ahead and prepped and draped the left neck and chest. Under ultrasound guidance, we visualized the left internal jugular vein and 10 mL of lidocaine 1% was injected there. We then went ahead and used our Micropuncture needle and punctured the left internal jugular vein. A Micropuncture wire was inserted. Micropuncture sheath was inserted. A 0.035 floppy guidewire was inserted under fluoroscopy. We then injected 10 mL of lidocaine 1% above and below the clavicle. We took an 11-blade and made a 1-cm incision at the puncture site. We then took a 15-blade and made a 1-cm incision below the clavicle. We then tunneled the PermCath up to the puncture site. We then placed our breakaway sheath over the guidewire into the vein under fluoroscopy and and the catheter was placed at the vein. right atrium. We then mendel back on each port and there was good flow. Heparinized saline was injected and 2000 units of IV heparin were injected at each port. At this point we used 4-0 Biosyn and 2 simple sutures were placed at the puncture site, they were now on the catheter side of the skin. Biopatch, Steri-Strip, 4x4, Tegaderms were placed. The patient tolerated the procedure with no complications. Patient was transferred to PACU in stable condition. LEE RUTHERFORD DO NP/[id number]
== END 2019-03-25 14:31 | disposition home health service (06) | DRG 252 ==
LOC: JER 13:07 → JERBED 19:14 → J4W 03-20 01:13
PROVIDERS: ADMIT Internal Medicine; ATTEND Internal Medicine
PROC: 5A1D70Z Performance of Urinary Filtration, Intermittent, Less than 6 Hours Per Day (ICD-10-PCS; 2019-03-19)
PROC: 037Y3ZZ Dilation of Upper Artery, Percutaneous Approach (ICD-10-PCS; 2019-03-20)
PROC: 057Y3ZZ Dilation of Upper Vein, Percutaneous Approach (ICD-10-PCS; 2019-03-20)
PROC: B51WYZZ Fluoroscopy of Dialysis Shunt/Fistula using Other Contrast (ICD-10-PCS; 2019-03-20)
PROC: B548ZZA Ultrasonography of Superior Vena Cava, Guidance (ICD-10-PCS; 2019-03-20)
PROC: 02H633Z Insertion of Infusion Device into Right Atrium, Percutaneous Approach (ICD-10-PCS; principal; 2019-03-20 13:30)
DX: I13.2 Hypertensive heart and chronic kidney disease with heart failure and with stage 5 chronic kidney disease, or end stage renal disease (principal); I50.33 Acute on chronic diastolic (congestive) heart failure; N18.6 End stage renal disease; T82.590A Other mechanical complication of surgically created arteriovenous fistula, initial encounter; N17.9 Acute kidney failure, unspecified; I12.0 Hypertensive chronic kidney disease with stage 5 chronic kidney disease or end stage renal disease; E11.22 Type 2 diabetes mellitus with diabetic chronic kidney disease; Z99.2 Dependence on renal dialysis; Z79.4 Long term (current) use of insulin; E87.5 Hyperkalemia; E11.51 Type 2 diabetes mellitus with diabetic peripheral angiopathy without gangrene; I44.1 Atrioventricular block, second degree; D63.1 Anemia in chronic kidney disease; Y83.8 Other surgical procedures as the cause of abnormal reaction of the patient, or of later complication, without mention of misadventure at the time of the procedure; J06.9 Acute upper respiratory infection, unspecified; M70.32 Other bursitis of elbow, left elbow; R20.0 Anesthesia of skin; E83.51 Hypocalcemia; I25.10 Atherosclerotic heart disease of native coronary artery without angina pectoris; R20.2 Paresthesia of skin; E11.40 Type 2 diabetes mellitus with diabetic neuropathy, unspecified; K59.00 Constipation, unspecified
CPT/HCPCS: 36415; 70450-TC; 71045-TC-FY; 71046-TC-FY; 72125-TC; 80048; 80053; 82550; 82553; 82962; 83880; 84100; 84484; 84550; 85025; 85027; 85651; 86038; 86140; 86431; 86618; 87040; 87804; 93005; 93010; 93306-TC; 94760; 99285-25; J1644; Q5106

== ENCOUNTER 2020-12-11 04:29 | Day surgery (SDC) | payer OTHER ==
[2020-12-10 13:17] VITALS: BMI 28.7
[2020-12-11 07:28] LABS: HEMATOCRIT 33.7 % (35.4-49); HEMOGLOBIN 11.5 GM/dL (11.7-16.9); MCHC 34.2 g/dl (32.0-35.9); MEAN CELL VOLUME 87.6 fl (80-96); MEAN PLT VOLUME 7.3 fl (7.5-11.1); PLATELET COUNT 191 10^3/uL (134-434); RBC 3.84 M/mm3 (4.00-5.60); RDW 16.7 % (11.9-15.9); WHITE BLOOD COUNT 4.8 K/mm3 (4.0-10.0)
[2020-12-11 07:38] LABS: INR 1.22 (0.83-1.09); PROTHROMBIN TIME (PATIENT) 13.7 SEC (9.7-13.0)
[2020-12-11 07:51] LABS: CHLORIDE 94 mmol/L (98-107); SODIUM 133 mmol/L (136-145)
[2020-12-11 07:54] LABS: CALCIUM 8.1 mg/dL (8.5-10.1)
[2020-12-11 07:55] LABS: ALBUMIN 2.4 g/dl (3.4-5.0); ANION GAP 13 MMOL/L (8-16); BLOOD UREA NITROGEN 55.5 mg/dL (7-18); CO2 27 mmol/L (21-32); GLUCOSE,RANDOM 113 mg/dL (74-106)
[2020-12-11 07:58] LABS: SGOT/AST 19 U/L (15-37); SGPT/ALT 26 U/L (13-61)
[2020-12-11 08:00] LABS: BILIRUBIN,TOTAL 0.5 mg/dL (0.2-1); TOT PROT 6.6 g/dl (6.4-8.2)
[2020-12-11 08:01] LABS: ALK PHOS 209 U/L (45-117)
[2020-12-11] MEDS ORDERED: HEPARIN NA (PORCINE) 5,000 UNITS/ML 1ML VIAL ONE (08:20)
[2020-12-11] MEDS ORDERED: LIDOCAINE HCL 1%, 10 MG/ML (20ML VIAL) ONE (08:20)
[2020-12-11 08:36] LABS: CREATININE 12.4 mg/dL (0.55-1.3)
[2020-12-11] MEDS ORDERED: ceFAZolin SODIUM 1 GM VIAL IVPB ONE (13:08)
[2020-12-11] MEDS ORDERED: MIDAZOLAM HCL 2 MG/2 ML SINGLE DOSE VIAL ONE (13:10)
[2020-12-11] MEDS ORDERED: PROPOFOL 20 ML ONE (13:10)
[2020-12-11] MEDS ORDERED: ceFAZolin SODIUM 1 GM VIAL ONE (13:13)
[2020-12-11] MEDS ORDERED: LIDOCAINE HCL 1%, 10 MG/ML (50 mL VIAL) INF ONE (13:29)
[2020-12-11] MEDS ORDERED: oxyCODONE HCL 5 MG TABLET PO PRN ×2 (14:50)
[2020-12-11] MEDS ORDERED: ONDANSETRON 4 MG/2 ML VIAL IVPUSH PRN (14:50)
[2020-12-11] MEDS ORDERED: LACTATED RINGERS SOLUTION 1,000 ML IV SCH (15:00)
[2020-12-11 16:43] VITALS: BP 114/67; PULSE 85; TEMP 98.2
== END 2020-12-11 16:45 | disposition home or self-care (01) ==
LOC: JASU-SURG 04:29
PROVIDERS: ATTEND Surgery Vascular Surgery
PROC: 047N3ZZ Dilation of Left Popliteal Artery, Percutaneous Approach (ICD-10-PCS; principal; 2020-12-11 09:00)
DX: I70.202 Unspecified atherosclerosis of native arteries of extremities, left leg (principal); L97.529 Non-pressure chronic ulcer of other part of left foot with unspecified severity; I12.0 Hypertensive chronic kidney disease with stage 5 chronic kidney disease or end stage renal disease; E11.22 Type 2 diabetes mellitus with diabetic chronic kidney disease; N18.6 End stage renal disease; Z99.2 Dependence on renal dialysis; Z79.4 Long term (current) use of insulin
CPT/HCPCS: 37225; C1885; 36415; 80053; 85027; 85610; 93005; 93010; 94760; J1644

== ENCOUNTER 2021-12-10 04:18 | Day surgery (SDC) | payer OTHER ==
[2021-12-09 16:13] VITALS: BMI 28.7
[2021-12-10] MEDS ORDERED: HEPARIN NA (PORCINE) 5,000 UNITS/ML 1ML VIAL ONE ×2 (07:29→09:56)
[2021-12-10] MEDS ORDERED: LIDOCAINE HCL 1%, 10 MG/ML (20ML VIAL) ONE (07:29)
[2021-12-10 07:37] VITALS: RESP 18
[2021-12-10] MEDS ORDERED: ceFAZolin SODIUM 1 GM VIAL IVPB ONE (08:32)
[2021-12-10] MEDS ORDERED: ONDANSETRON 4 MG/2 ML VIAL ONE (09:10)
[2021-12-10] MEDS ORDERED: MIDAZOLAM HCL 2 MG/2 ML SINGLE DOSE VIAL ONE (09:10)
[2021-12-10] MEDS ORDERED: LIDOCAINE HCL/PF 2% SDV 5ML VIAL ONE (09:10)
[2021-12-10] MEDS ORDERED: PROPOFOL 40 ML ONE (09:10)
[2021-12-10] MEDS ORDERED: ceFAZolin SODIUM 1 GM VIAL ONE (09:28)
[2021-12-10] MEDS ORDERED: LIDOCAINE HCL 1%, 10 MG/ML (50 mL VIAL) INF ONE (09:39)
[2021-12-10] MEDS ORDERED: CLINDAMYCIN 600MG PREMIX IVPB 600 MG/50 ML BAG IVPB ONE (10:13)
[2021-12-10] MEDS ORDERED: ONDANSETRON 4 MG/2 ML VIAL IVPUSH PRN (10:25)
[2021-12-10] MEDS ORDERED: LACTATED RINGERS SOLUTION 1,000 ML IV SCH (10:30)
[2021-12-10 12:52] VITALS: PULSE 69
[2021-12-10 14:11] VITALS: TEMP 97.7
[2021-12-10 15:01] VITALS: BP 100/60
== END 2021-12-10 16:30 | disposition home or self-care (01) ==
LOC: JASU-SURG 04:18
PROVIDERS: ATTEND Surgery Vascular Surgery
PROC: 047P3ZZ Dilation of Right Anterior Tibial Artery, Percutaneous Approach (ICD-10-PCS; 2021-12-10)
PROC: 047M3Z1 Dilation of Right Popliteal Artery using Drug-Coated Balloon, Percutaneous Approach (ICD-10-PCS; principal; 2021-12-10 09:00)
DX: I70.235 Atherosclerosis of native arteries of right leg with ulceration of other part of foot (principal)
CPT/HCPCS: 37225; 37229; C2623; 76000-TC-FY; 94760; J1644

== ENCOUNTER 2023-03-29 20:23 | Inpatient (IN) | payer OTHER ==
[2023-03-29 20:32] VITALS: BMI 28.7
[2023-03-29] MEDS ORDERED: ACETAMINOPHEN INJECTION 100 ML IVPB ONE (20:58)
[2023-03-29] MEDS: ACETAMINOPHEN 1000 MG/100 ML BAG IVPB ONE (21:23)
[2023-03-29 21:39] LABS: BASO % 0.6 % (0-2.0); EOS % 3.6 % (0-4.5); HEMATOCRIT 38.1 % (35.4-49); HEMOGLOBIN 12.7 GM/dL (11.7-16.9); LYMPH % 11.6 % (8-40); MCH 28.3 pg (25.7-33.7); MCHC 33.4 g/dl (32.0-35.9); MEAN CELL VOLUME 84.7 fl (80-96); MEAN PLT VOLUME 8.7 fl (7.5-11.1); MONO % 4.1 % (3.8-10.2); NEUT % 80.1 % (42.8-82.8); PLATELET COUNT 202 10^3/uL (134-434); RDW 15.9 % (11.9-15.9); WHITE BLOOD COUNT 6.1 K/mm3 (4.0-10.0)
[2023-03-29 21:43] LABS: VENOUS BASE EXCESS -1.5 mmol/L (-2-2); VENOUS O2 SATURATION 71.5 % (70-80); VENOUS PCO2 41.8 mmHg (38-52); VENOUS PH 7.371 (7.310-7.410)
[2023-03-29 21:46] LABS: ACTIVATED PTT 39.7 SECONDS (25.2-36.5); INR 1.23 (0.83-1.09); PROTHROMBIN TIME (PATIENT) 14.2 SEC (9.7-13.0)
[2023-03-29 22:28] LABS: CHLORIDE 94 mmol/L (98-107); SODIUM 128 mmol/L (136-145)
[2023-03-29 22:29] LABS: POTASSIUM 7.4 mmol/L (3.5-5.1)
[2023-03-29 22:30] LABS: ANION GAP 11 mmol/L (4-13); CALCIUM 8.6 mg/dL (8.5-10.1); CO2 23 mmol/L (21-32); GLUCOSE,RANDOM 125 mg/dL (74-106)
[2023-03-29 22:31] LABS: BLOOD UREA NITROGEN 73.4 mg/dL (7-18); MAGNESIUM 1.5 mg/dL (1.8-2.4)
[2023-03-29 22:34] LABS: PHOSPHOROUS 5.7 mg/dL (2.5-4.9); SGOT/AST 78 U/L (15-37)
[2023-03-29 22:35] LABS: BILIRUBIN,TOTAL 0.6 mg/dL (0.2-1); TOT PROT 7.4 g/dl (6.4-8.2)
[2023-03-29 22:36] LABS: ALK PHOS 302 U/L (45-117)
[2023-03-29 22:50] LABS: CREATININE 14.6 mg/dL (0.55-1.3); SGPT/ALT 116 U/L (13-61)
[2023-03-29 23:17] LABS: N-TERMINAL BNP 43580.8 pg/ml (5-125)
[2023-03-30 00:44] LABS: CHLORIDE 96 mmol/L (98-107); POTASSIUM 3.8 mmol/L (3.5-5.1); SODIUM 133 mmol/L (136-145)
[2023-03-30 00:45] LABS: CALCIUM 8.3 mg/dL (8.5-10.1)
[2023-03-30 00:46] LABS: ANION GAP 14 mmol/L (4-13); BLOOD UREA NITROGEN 78.1 mg/dL (7-18); CO2 24 mmol/L (21-32); GLUCOSE,RANDOM 129 mg/dL (74-106); MAGNESIUM 1.4 mg/dL (1.8-2.4)
[2023-03-30] MEDS: APIXABAN 2.5 MG TABLET PO SCH (01:49)
[2023-03-30] MEDS: CALCIUM ACETATE 667 MG CAPSULE (FP) PO SCH (09:18)
[2023-03-30] MEDS ORDERED: INSULIN SQ PRN (09:51)
[2023-03-30] MEDS ORDERED: [UNRECOGNIZED DRUG - OTHER] SQ PRN (09:51)
[2023-03-30] MEDS: PERITONEAL DIALYSIS 2.5% SOLN 2,500 ML IP SCH (12:16)
[2023-03-30] MEDS: BRIMONIDINE TARTRATE 0.1% OPHTHALMIC 5 ML BOTTLE OU SCH (13:08)
[2023-03-30] MEDS ORDERED: PATIENT'S OWN MEDICATION (NON-FORMULARY) (Riociguat [Adempas] 2.5 MG Tablet) PO SCH (14:00)
[2023-03-30 14:21] LABS: BF WBC & OTHER NUCLEATED CELLS 39 /mm3
[2023-03-30 14:53] LABS: BODY FLUID MESOTHELIAL 7 %; BODY FLUID MONOCYTE 63 %
[2023-03-30] MEDS: APIXABAN 5 MG TABLET PO SCH (21:36)
[2023-03-30] MEDS: ATORVASTATIN CA 10 MG TABLET (FP) PO SCH (21:36)
[2023-03-30] MEDS: LATANOPROST 0.005% OPHTH SOLN 2.5ML BOTTLE OU SCH (22:20)
[2023-03-30] MEDS: ACETAMINOPHEN 325 MG TABLET (FP) PO ONE (23:21)
[2023-03-31] MEDS ORDERED: VANCOMYCIN/WATER FOR INJ (PEG) 1,000 MG/200 ML BAG IVPB ONE (08:00)
[2023-03-31] MEDS ORDERED: PIPERACILLIN/TAZOB 2.25 GM 2.25 GM in DEXTROSE 5%-WATER - 50 ML IVPB ONE (08:00)
[2023-03-31 09:33] LABS: CHLORIDE 93 mmol/L (98-107); POTASSIUM 3.9 mmol/L (3.5-5.1); SODIUM 130 mmol/L (136-145)
[2023-03-31 09:37] LABS: ANION GAP 14 mmol/L (4-13); CALCIUM 7.9 mg/dL (8.5-10.1); CO2 23 mmol/L (21-32)
[2023-03-31 09:38] LABS: ALBUMIN 2.5 g/dl (3.4-5.0); BLOOD UREA NITROGEN 73.8 mg/dL (7-18); GLUCOSE,RANDOM 227 mg/dL (74-106)
[2023-03-31 09:41] LABS: SGOT/AST 47 U/L (15-37); SGPT/ALT 76 U/L (13-61)
[2023-03-31 09:42] LABS: BILIRUBIN,TOTAL 0.6 mg/dL (0.2-1); TOT PROT 5.8 g/dl (6.4-8.2)
[2023-03-31] MEDS ORDERED: TREPROSTINIL DIOLAMINE 0.125 MG PO SCH (10:00)
[2023-03-31 10:21] LABS: ALK PHOS 183 U/L (45-117); CREATININE 15.5 mg/dL (0.55-1.3)
[2023-03-31] MEDS: DULoxetine HCL 30 MG CAPSULE.DR PO SCH (11:15)
[2023-03-31] MEDS: AMIODARONE HCL 200 MG TABLET PO SCH (11:16)
[2023-03-31] MEDS: PIPERACILLIN/TAZOB 2.25 GM 2.25 GM in DEXTROSE 5%-WATER - 50 ML IVPB ONE (12:52)
[2023-03-31] MEDS: VANCOMYCIN/WATER FOR INJ (PEG) 1,000 MG/200 ML BAG IVPB ONE (12:52)
[2023-03-31] MEDS: PIPERACILLIN/TAZOB 2.25 GM 2.25 GM in DEXTROSE 5%-WATER - 50 ML IVPB SCH (17:51)
[2023-03-31] MEDS: ACETAMINOPHEN 325 MG TABLET (FP) PO PRN (21:46)
[2023-03-31] MEDS: INSULIN (LEVEMIR) 100 UNITS/ML UNITS SQ SCH (21:54)
[2023-04-01] MEDS: VANCOMYCIN/WATER FOR INJ (PEG) 1,000 MG/200 ML BAG IVPB ONE (11:34)
[2023-04-01 16:27] LABS: HEMOGLOBIN 11.4 GM/dL (11.7-16.9); MCH 28.3 pg (25.7-33.7); MCHC 33.5 g/dl (32.0-35.9); MEAN CELL VOLUME 84.3 fl (80-96); MEAN PLT VOLUME 8.6 fl (7.5-11.1); PLATELET COUNT 90 10^3/uL (134-434); RBC 4.04 M/mm3 (4.00-5.60); RDW 15.9 % (11.9-15.9); WHITE BLOOD COUNT 7.7 K/mm3 (4.0-10.0)
[2023-04-01 16:31] LABS: INR 1.68 (0.83-1.09); PROTHROMBIN TIME (PATIENT) 19.4 SEC (9.7-13.0)
[2023-04-01 16:44] LABS: CHLORIDE 91 mmol/L (98-107); POTASSIUM 4.5 mmol/L (3.5-5.1); SODIUM 130 mmol/L (136-145)
[2023-04-01 16:49] LABS: ANION GAP 14 mmol/L (4-13); BLOOD UREA NITROGEN 86.1 mg/dL (7-18); CALCIUM 8.3 mg/dL (8.5-10.1); CO2 25 mmol/L (21-32); GLUCOSE,RANDOM 107 mg/dL (74-106)
[2023-04-01 16:50] LABS: ALBUMIN 2.3 g/dl (3.4-5.0)
[2023-04-01 16:53] LABS: BILIRUBIN,TOTAL 0.7 mg/dL (0.2-1); SGOT/AST 58 U/L (15-37)
[2023-04-01 16:54] LABS: SGPT/ALT 77 U/L (13-61); TOT PROT 5.8 g/dl (6.4-8.2)
[2023-04-01 16:55] LABS: ALK PHOS 186 U/L (45-117)
[2023-04-01 18:39] LABS: ANISOCYTOSIS 1+; MACROCYTOSIS 0; PLATELET ESTIMATE DECREASED
[2023-04-02 07:44] LABS: BASO % 0.8 % (0-2.0); EOS % 4.7 % (0-4.5); HEMATOCRIT 35.3 % (35.4-49); HEMOGLOBIN 11.5 GM/dL (11.7-16.9); LYMPH % 20.6 % (8-40); MCH 27.7 pg (25.7-33.7); MCHC 32.5 g/dl (32.0-35.9); MEAN CELL VOLUME 85.2 fl (80-96); MEAN PLT VOLUME 9.2 fl (7.5-11.1); MONO % 13.1 % (3.8-10.2); NEUT % 60.8 % (42.8-82.8); PLATELET COUNT 105 10^3/uL (134-434); RBC 4.14 M/mm3 (4.00-5.60); RDW 15.5 % (11.9-15.9); WHITE BLOOD COUNT 6.9 K/mm3 (4.0-10.0)
[2023-04-02 08:02] LABS: CHLORIDE 90 mmol/L (98-107); SODIUM 129 mmol/L (136-145)
[2023-04-02 08:10] LABS: BILIRUBIN,TOTAL 0.6 mg/dL (0.2-1); TOT PROT 5.8 g/dl (6.4-8.2)
[2023-04-02 08:11] LABS: CALCIUM 7.7 mg/dL (8.5-10.1); IRON SERUM 75 ug/dL (50-175)
[2023-04-02 08:12] LABS: ALBUMIN 2.3 g/dl (3.4-5.0); ANION GAP 16 mmol/L (4-13); BLOOD UREA NITROGEN 89.5 mg/dL (7-18); CO2 23 mmol/L (21-32); GAMMA GLUTAMYL TRANSPEPTIDASE 94 U/L (5-85); GLUCOSE,RANDOM 160 mg/dL (74-106); SGOT/AST 54 U/L (15-37); SGPT/ALT 78 U/L (13-61); TOTAL IRON BINDING CAPACITY 201 ug/dL (250-450)
[2023-04-02 08:30] LABS: ALK PHOS 217 U/L (45-117); CREATININE 16.7 mg/dL (0.55-1.3)
[2023-04-03 08:09] LABS: BASO % 1.1 % (0-2.0); EOS % 5.2 % (0-4.5); HEMATOCRIT 34.5 % (35.4-49); HEMOGLOBIN 11.3 GM/dL (11.7-16.9); LYMPH % 23.6 % (8-40); MCH 27.7 pg (25.7-33.7); MCHC 32.9 g/dl (32.0-35.9); MEAN CELL VOLUME 84.2 fl (80-96); MEAN PLT VOLUME 9.4 fl (7.5-11.1); MONO % 12.7 % (3.8-10.2); NEUT % 57.4 % (42.8-82.8); PLATELET COUNT 112 10^3/uL (134-434); RDW 15.3 % (11.9-15.9)
[2023-04-03] MEDS: LACTOBACILLUS ACIDOPHILUS 1 TABLET PO SCH (09:08)
[2023-04-03] MEDS: VANCOMYCIN/WATER FOR INJ (PEG) 1,000 MG/200 ML BAG IVPB ONE (10:04)
[2023-04-03] MEDS: COLLAGENASE CLOSTRIDIUM HIST. 30 GRAMS TUBE TP SCH (14:27)
[2023-04-04] MEDS: TREPROSTINIL DIOLAMINE PO SCH (22:16)
[2023-04-05] MEDS: DAPTOMYCIN 700 MG in SODIUM CHLORIDE 50 ML IVPB ONE (18:50)
[2023-04-06 12:49] LABS: BASO % 1.1 % (0-2.0); EOS % 5.6 % (0-4.5); HEMATOCRIT 36.6 % (35.4-49); HEMOGLOBIN 12.1 GM/dL (11.7-16.9); LYMPH % 25.5 % (8-40); MCH 27.8 pg (25.7-33.7); MCHC 33.2 g/dl (32.0-35.9); MEAN CELL VOLUME 83.9 fl (80-96); MEAN PLT VOLUME 8.2 fl (7.5-11.1); NEUT % 56.8 % (42.8-82.8); PLATELET COUNT 141 10^3/uL (134-434); RBC 4.36 M/mm3 (4.00-5.60); RDW 15.4 % (11.9-15.9); WHITE BLOOD COUNT 6.4 K/mm3 (4.0-10.0)
[2023-04-06 13:33] LABS: ALBUMIN 2.6 g/dl (3.4-5.0); ALK PHOS 219 U/L (45-117); ANION GAP 15 mmol/L (4-13); BILIRUBIN,TOTAL 0.6 mg/dL (0.2-1); BLOOD UREA NITROGEN 67.2 mg/dL (7-18); CALCIUM 7.7 mg/dL (8.5-10.1); CHLORIDE 94 mmol/L (98-107); CO2 23 mmol/L (21-32); CREATININE 15.9 mg/dL (0.55-1.3); GLUCOSE,RANDOM 138 mg/dL (74-106); POTASSIUM 3.5 mmol/L (3.5-5.1); SGOT/AST 107 U/L (15-37); SGPT/ALT 132 U/L (13-61); SODIUM 132 mmol/L (136-145); TOT PROT 6.5 g/dl (6.4-8.2)
[2023-04-07 06:44] VITALS: RESP 16
[2023-04-07 06:55] LABS: BASO % 1.2 % (0-2.0); EOS % 5.7 % (0-4.5); HEMATOCRIT 33.3 % (35.4-49); HEMOGLOBIN 11.1 GM/dL (11.7-16.9); MCH 27.9 pg (25.7-33.7); MCHC 33.2 g/dl (32.0-35.9); MEAN PLT VOLUME 8.2 fl (7.5-11.1); MONO % 12.2 % (3.8-10.2); NEUT % 53.9 % (42.8-82.8); PLATELET COUNT 139 10^3/uL (134-434); RBC 3.97 M/mm3 (4.00-5.60); RDW 15.1 % (11.9-15.9); WHITE BLOOD COUNT 6.3 K/mm3 (4.0-10.0)
[2023-04-07 07:03] LABS: CHLORIDE 93 mmol/L (98-107); POTASSIUM 3.5 mmol/L (3.5-5.1); SODIUM 132 mmol/L (136-145)
[2023-04-07 07:05] LABS: CALCIUM 7.7 mg/dL (8.5-10.1)
[2023-04-07 07:06] LABS: ALBUMIN 2.4 g/dl (3.4-5.0); ANION GAP 12 mmol/L (4-13); BLOOD UREA NITROGEN 65.5 mg/dL (7-18); CO2 27 mmol/L (21-32); GLUCOSE,RANDOM 103 mg/dL (74-106)
[2023-04-07 07:09] LABS: SGOT/AST 101 U/L (15-37); SGPT/ALT 169 U/L (13-61)
[2023-04-07 07:11] LABS: BILIRUBIN,TOTAL 0.6 mg/dL (0.2-1)
[2023-04-07 07:12] LABS: ALK PHOS 199 U/L (45-117)
[2023-04-07 07:32] LABS: CREATININE 15.7 mg/dL (0.55-1.3)
[2023-04-07] MEDS: DAPTOMYCIN 700 MG in SODIUM CHLORIDE 50 ML IVPB ONE (13:39)
[2023-04-07 15:03] VITALS: BP 150/96; PULSE 62; TEMP 97.5
== END 2023-04-07 18:11 | disposition home health service (06) | DRG 638 ==
LOC: JER 20:23 → JERBED 23:23 → J4S 03-30 01:00
PROVIDERS: ADMIT Specialist; ATTEND Specialist
PROC: 05HY33Z Insertion of Infusion Device into Upper Vein, Percutaneous Approach (ICD-10-PCS; principal; 2023-04-07)
DX: E11.69 Type 2 diabetes mellitus with other specified complication (principal); I13.2 Hypertensive heart and chronic kidney disease with heart failure and with stage 5 chronic kidney disease, or end stage renal disease; I50.32 Chronic diastolic (congestive) heart failure; I48.92 Unspecified atrial flutter; R78.81 Bacteremia; L97.909 Non-pressure chronic ulcer of unspecified part of unspecified lower leg with unspecified severity; M62.82 Rhabdomyolysis; M86.9 Osteomyelitis, unspecified; N18.6 End stage renal disease; E11.621 Type 2 diabetes mellitus with foot ulcer; R50.9 Fever, unspecified; M54.2 Cervicalgia; E11.22 Type 2 diabetes mellitus with diabetic chronic kidney disease; I27.20 Pulmonary hypertension, unspecified; K21.9 Gastro-esophageal reflux disease without esophagitis
CPT/HCPCS: 0241U-QW; 36415; 36569; 70450-TC; 71045-TC-FY; 71250-TC; 73630-TC-RT-FY; 76705-TC; 78315-TC; 80048; 80053; 82550; 82553; 82607; 82728; 82803; 82962; 82977; 83516; 83540; 83550; 83605; 83735; 83880; 84100; 84484; 85025; 85610; 85651; 85730; 86140; 86704; 86803; 87040; 87070; 87075; 87077; 87186; 87205; 87340; 87517; 93005; 93010; 93306-TC; 99285-25; A9503; G0480; J0131; J0878

== ENCOUNTER 2024-01-15 04:31 | Observation (INO) | payer OTHER ==
[2024-01-15 04:40] VITALS: BMI 27.5
[2024-01-15] MEDS: LACTATED RINGERS SOLUTION 1000 ML INFUS.BAG IV ONE (05:48)
[2024-01-15 06:03] LABS: VENOUS BASE EXCESS 0.4 mmol/L (-2-2); VENOUS O2 SATURATION 35.1 % (70-80); VENOUS PCO2 60.2 mmHg (38-52); VENOUS PH 7.286 (7.310-7.410)
[2024-01-15 06:29] LABS: BASO % 0.4 % (0-2.0); EOS % 3.5 % (0-4.5); HEMATOCRIT 36.6 % (35.4-49); HEMOGLOBIN 11.8 GM/dL (11.7-16.9); LYMPH % 6.7 % (8-40); MCH 30.3 pg (25.7-33.7); MCHC 32.3 g/dl (32.0-35.9); MEAN CELL VOLUME 93.9 fl (80-96); MEAN PLT VOLUME 9.2 fl (7.5-11.1); MONO % 9.4 % (3.8-10.2); PLATELET COUNT 150 10^3/uL (134-434); RDW 16.1 % (11.9-15.9); WHITE BLOOD COUNT 10.7 K/mm3 (4.0-10.0)
[2024-01-15] MEDS ORDERED: PIPERACILLIN/TAZOB 2.25 GM 2.25 GM/50 ML BAG IVPB ONE (06:41)
[2024-01-15 06:44] LABS: CHLORIDE 94 mmol/L (98-107); POTASSIUM 3.3 mmol/L (3.5-5.1); SODIUM 134 mmol/L (136-145)
[2024-01-15 06:46] LABS: ALBUMIN 2.7 g/dl (3.4-5.0); ANION GAP 13 mmol/L (4-13); BLOOD UREA NITROGEN 47.5 mg/dL (7-18); CALCIUM 8.5 mg/dL (8.5-10.1); CO2 27 mmol/L (21-32); MAGNESIUM 1.5 mg/dL (1.8-2.4)
[2024-01-15] MEDS: PIPERACILLIN/TAZOB 2.25 GM 2.25 GM in DEXTROSE 5%-WATER - 50 ML IVPB ONE (06:46)
[2024-01-15 06:47] LABS: GLUCOSE,RANDOM 241 mg/dL (74-106)
[2024-01-15 06:49] LABS: SGPT/ALT 18 U/L (13-61)
[2024-01-15 06:50] LABS: PHOSPHOROUS 3.8 mg/dL (2.5-4.9); SGOT/AST 23 U/L (15-37)
[2024-01-15 06:51] LABS: BILIRUBIN,TOTAL 0.5 mg/dL (0.2-1); TOT PROT 6.6 g/dl (6.4-8.2)
[2024-01-15 06:52] LABS: ALK PHOS 149 U/L (45-117)
[2024-01-15 07:24] LABS: CREATININE 14.2 mg/dL (0.55-1.3)
[2024-01-15] MEDS ORDERED: VANCOMYCIN 1 GM PREMIX (F) 1 GM/200 ML BAG ONE (07:28)
[2024-01-15] MEDS: VANCOMYCIN 1 GM PREMIX (F) 1 GM/200 ML BAG IVPB ONE (07:54)
[2024-01-15] MEDS: VANCOMYCIN 1,000 MG in DEXTROSE 5%-WATER - 250 ML IVPB ONE (08:13)
[2024-01-15] MEDS ORDERED: ACETAMINOPHEN 500 MG TABLET (FP) PO PRN (09:08)
[2024-01-15 13:34] LABS: HIV INTERPRETATION NEGATIVE (NEGATIVE)
[2024-01-15] MEDS ORDERED: RIOCIGUAT 1 MG PO SCH (14:00)
[2024-01-15] MEDS: PERITONEAL DIALYSIS 1.5% SOLN 2,500 ML IP SCH (16:48)
[2024-01-15] MEDS: CALCIUM ACETATE 667 MG CAPSULE (FP) PO SCH (17:26)
[2024-01-15 18:42] VITALS: RESP 18
[2024-01-15] MEDS: APIXABAN 2.5 MG TABLET PO SCH (21:25)
[2024-01-15] MEDS: ATORVASTATIN CA 10 MG TABLET (FP) PO SCH (21:25)
[2024-01-15] MEDS: INSULIN (LEVEMIR) 100 UNITS/ML UNITS SQ SCH (21:26)
[2024-01-15] MEDS ORDERED: TREPROSTINIL DIOLAMINE 0.125 MG PO SCH (22:00)
[2024-01-15] MEDS ORDERED: INSULIN (LEVEMIR) 100 UNITS/ML UNITS SQ SCH (22:00)
[2024-01-16 06:34] LABS: BASO % 0.7 % (0-2.0); EOS % 7.3 % (0-4.5); HEMATOCRIT 30.6 % (35.4-49); LYMPH % 18.7 % (8-40); MCH 30.5 pg (25.7-33.7); MCHC 32.8 g/dl (32.0-35.9); MEAN CELL VOLUME 93.2 fl (80-96); MEAN PLT VOLUME 8.5 fl (7.5-11.1); MONO % 13.1 % (3.8-10.2); NEUT % 60.2 % (42.8-82.8); PLATELET COUNT 136 10^3/uL (134-434); RBC 3.28 M/mm3 (4.00-5.60); RDW 15.9 % (11.9-15.9); WHITE BLOOD COUNT 7.9 K/mm3 (4.0-10.0)
[2024-01-16 06:40] LABS: CHLORIDE 92 mmol/L (98-107); POTASSIUM 3.2 mmol/L (3.5-5.1); SODIUM 132 mmol/L (136-145)
[2024-01-16 06:41] LABS: ANION GAP 14 mmol/L (4-13); BLOOD UREA NITROGEN 52.3 mg/dL (7-18); CALCIUM 7.9 mg/dL (8.5-10.1); CO2 26 mmol/L (21-32)
[2024-01-16 06:42] LABS: GLUCOSE,RANDOM 208 mg/dL (74-106)
[2024-01-16 06:47] LABS: CREATININE 14.1 mg/dL (0.55-1.3)
[2024-01-16 11:09] VITALS: PULSE 65
[2024-01-16] MEDS: FLUoxetine HCL 20 MG CAPSULE PO SCH (11:58)
[2024-01-16] MEDS: PIPERACILLIN/TAZOB 2.25 GM 2.25 GM in DEXTROSE 5%-WATER - 50 ML IVPB SCH (13:29)
[2024-01-16] MEDS: POTASSIUM CHLORIDE ORAL LIQUID 20 MEQ/15 ML PO ONE (13:29)
[2024-01-16 15:10] VITALS: BP 106/18; TEMP 97.3
== END 2024-01-16 20:05 | disposition home or self-care (01) ==
LOC: JER 04:31 → JERBED 08:02 → J4W 09:57 → J4S 14:46
PROVIDERS: ADMIT Internal Medicine; ATTEND Internal Medicine
PROC: 3E013VG Introduction of Insulin into Subcutaneous Tissue, Percutaneous Approach (ICD-10-PCS; principal; 2024-01-15)
PROC: 3E03329 Introduction of Other Anti-infective into Peripheral Vein, Percutaneous Approach (ICD-10-PCS; 2024-01-15)
DX: Z95.0 Presence of cardiac pacemaker (principal); I12.9 Hypertensive chronic kidney disease with stage 1 through stage 4 chronic kidney disease, or unspecified chronic kidney disease; E11.22 Type 2 diabetes mellitus with diabetic chronic kidney disease; N18.9 Chronic kidney disease, unspecified; I27.20 Pulmonary hypertension, unspecified; I73.9 Peripheral vascular disease, unspecified; Z99.2 Dependence on renal dialysis; E11.9 Type 2 diabetes mellitus without complications; N40.0 Benign prostatic hyperplasia without lower urinary tract symptoms; K59.00 Constipation, unspecified; K21.9 Gastro-esophageal reflux disease without esophagitis
CPT/HCPCS: 0241U-QW; 36415; 71045-TC-FY; 71250-TC; 72129-TC; 80048; 80053; 82550; 82553; 82803; 82962; 83605; 83735; 84100; 84484; 85025; 86803; 87040; 87070; 87075; 87205; 87389; 93005; 93010; 96361; 96365; 96366; 96367; 96372; 99285-25; G0378